=== PATIENT | female | born 1990 | race Caucasian/White ===

== ENCOUNTER 2024-02-07 23:17 | Emergency (ER) | payer OTHER, SELFPAY ==
[2024-02-07 23:22] VITALS: BP 148/100; PULSE 105; RESP 18; TEMP 37.1; O2SAT 97; BMI 31.5
[2024-02-08 00:12] VITALS: BP 132/79; PULSE 77; RESP 18; O2SAT 97
--- NOTE | 2024-02-08 02:12 | ED.GENADULT ---
HPI - General Adult General Date Seen: 02/08/24 Chief complaint: Post Op Complication Stated complaint: 4 days post op, dizzy, chills Time Seen by Provider: 02/07/24 23:51 Source: patient Mode of arrival: ambulatory Limitations: no limitations History of Present Illness HPI narrative: Pt c/o chills, dizziness, and 1/10 soreness to right upper quadrant that radiates to right back. Pt states she had her gallbladder out on Saturday at [facility]. Pt advised by triage nurse to come to ER. Pt states, I get such bad anxiety coming here. Patient is a very nice lady who presents here after she spoke to her on-call service ryan, they recommended she came in, she said she is taking her temperature probably for 5 times a home, did this axillary, and noted that her temperature was 95? -96?. The nurse was worried that she may be becoming septic, she does not have a cough denies a sore throat, eating and drinking otherwise normal. She did undergo a routine laparoscopic cholecystectomy 5 days ago at [facility], has been having normal bowel movements since her abdominal pain is decreasing her last use of any narcotic medication was 3 days ago, and she has not really used any Tylenol or ibuprofen. She does tell me that she has pretty bad anxiety. Related Data Home Medications Medication Instructions Recorded Confirmed escitalopram oxalate 20 mg tablet 20 mg PO DAILY 02/07/24 02/07/24 (Lexapro) rizatriptan 10 mg tablet mg PO 02/07/24 Allergies Allergy/AdvReac Type Severity Reaction Status Date / Time Sulfa (Sulfonamide Allergy Mild Hives Verified 02/07/24 23:27 Antibiotics) Review of Systems Status of ROS: Reports: 10 or more systems reviewed and unremarkable except as noted in History and below [facility] Social History Smoking Status: Unknown if ever smoked Exam Narrative: Exam Narrative: On examination she is in no apparent distress she is pleasant and alert, speaking to me normally. Pupils equal round reactive to light her TMs are normal oropharynx is normal well hydrated neck is supple no meningismus chest is good air entry bilaterally with no wheezing crackles noted heart sounds are normal. Abdomen shows some us portals of entry from her laparoscopic cholecystectomy other all healing up well. There is no redness, some normal bruising, she has good bowel sounds and no significant tenderness of her abdomen, she moves all extremities independently well with absence of edema swelling, skin reveals no redness. Const: Vital Signs, click to edit/add: Vital Signs - 24 hr 02/07/24 23:22 02/08/24 00:12 Temperature 98.7 F Pulse Rate [Pulse Oximeter] 105 H 77 Respiratory Rate 18 18 Blood Pressure [Ri ght Upper Arm] 148/100 H 132/79 Pulse Oximetry 97 97 Oxygen Delivery Me thod Room Air Room Air Documenting provider has reviewed patient's vital signs: yes Course Course ED Course: I had a long discussion with her, her vital signs are normal at examination shows no evidence of any significant findings.. I think it would be reasonable to just watch this. And reassure her, she felt so much better after this. I did offer her a urinalysis or a CBC, but she felt that she could go home I would be in agreement. Vital Signs Vital signs: Initial Vital Signs Temperature 98.7 F 02/07/24 23:22 Temperature Source Temporal Artery Scan 02/07/24 23:22 Pulse Rate 105 H 02/07/24 23:22 Respiratory Rate 18 02/07/24 23:22 Blood Pressure 148/100 H 02/07/24 23:22 Blood Pressure Mean 116 H 02/07/24 23:22 Blood Pressure Position Sitting 02/07/24 23:22 Pulse Oximetry 97 02/07/24 23:22 Oxygen Delivery Method Room Air 02/07/24 23:22 Vital Signs Temperature 98.7 F 02/07/24 23:22 Pulse Rate 105 H 02/07/24 23:22 Respiratory Rate 18 02/07/24 23:22 Blood Pressure 148/100 H 02/07/24 23:22 Pulse Oximetry 97 02/07/24 23:22 Oxygen Delivery Method Room Air 02/07/24 23:22 Temperature 98.7 F 02/07/24 23:22 Pulse Rate 77 02/08/24 00:12 Respiratory Rate 18 02/08/24 00:12 Blood Pressure 132/79 02/08/24 00:12 Pulse Oximetry 97 02/08/24 00:12 Oxygen Delivery Method Room Air 02/08/24 00:12 Medical Decision Making MDM Narrative Medical decision making narrative: Life-threatening differential diagnosis is include meningitis, encephalitis, pneumonia, intra-abdominal infection, bacteremia, other differential diagnosis include but are not limited to viral upper respiratory tract infection, strep, urinary tract infection, skin infection, osteomyelitis, influenza, fungal infections, diskitis, epidural abscess, or fever of unknown origin. Discharge Plan Discharge Clinical Impression: Post-operative complication, Anxiety about health Patient Disposition: Home, Self-Care Condition: Stable Additional Instructions: Home rest reassurance given, at this point I would watch this, I do not think you have sepsis, based on her vital signs and examination. I do not think you have a blood clot, given also when I see. I think you doing well postoperatively, I would watch for signs of increasing abdominal pain shortness of breath coughing, and then return if these occur obviously if her temperature gets over 100, then I would come back. Low temperature can be characteristic of sepsis, but you have to have an abnormality of vital signs in ayoung healthy person. Prescriptions: No Action escitalopram oxalate [Lexapro] 20 mg tablet 20 mg PO DAILY rizatriptan 10 mg tablet PO Stand Alone Forms: [employer] Info Instructions
== END 2024-02-08 00:28 | disposition home or self-care (01) ==
LOC: ED 02-08 00:21
PROVIDERS: Emergency Provider Family Medicine
DX: F41.9 Anxiety disorder, unspecified (principal); T81.9XXA Unspecified complication of procedure, initial encounter
CPT/HCPCS: 99282; 99283; 99284

== ENCOUNTER 2024-07-16 19:53 | Emergency (ER) | payer OTHER, SELFPAY ==
[2024-07-16 20:47] VITALS: BP 152/74; PULSE 85; RESP 20; TEMP 36.6; O2SAT 99; BMI 31.5
--- NOTE | 2024-07-16 22:18 | ED.SKABFB ---
HPI - Skin/Abscess/Foreign Bdy General Date Seen: 07/16/24 Chief complaint: Skin/Abscess/Foreign Body Stated complaint: Cellulitis upper R thigh Time Seen by Provider: 07/16/24 22:13 Source: patient Mode of arrival: ambulatory Limitations: no limitations History of Present Illness HPI narrative: Patient is a 33-year-old female presenting to emergency department for cellulitis to her right upper inner side. She states she 1st noticed a cellulitis on Saturday. She went to urgent care the next day it was started Keflex 500 mg twice a day. She noticed was not getting any better and went to another Urgent Care 2 days after that and was switched to Keflex 4 times a day 500 mg. She has noticed some improvement in the redness is much better today compared to yesterday along with little bit of decrease in the overall size of the redness but notes the center area is more painful and appears a darker red than before. Denies fevers, chills, weakness, lightheadedness, dizziness, chest pain, shortness of breath. States she is having no other symptoms other than the cellulitis. She is concerned she could be getting septic. Related Data Home Medications ?Medication ?Instructions ?Recorded ?Confirmed escitalopram oxalate 20 mg tablet 20 mg PO DAILY 02/07/24 07/16/24 (Lexapro) rizatriptan 10 mg tablet 10 mg PO DIRECTED 02/07/24 07/16/24 Previous Rx's ?Medication ?Instructions ?Recorded cephalexin 500 mg capsule 500 mg PO QID 7 days #28 caps 07/14/24 Allergies Allergy/AdvReac Type Severity Reaction Status Date / Time Sulfa (Sulfonamide Allergy Mild Hives Verified 07/16/24 20:49 Antibiotics) Review of Systems Status of ROS: Reports: 10 or more systems reviewed and unremarkable except as noted in History and below PFSH PFSH Social History Smoking Status: Unknown if ever smoked Exam Narrative: Exam Narrative: Const: Well-nourished, Well-developed, in mild distress Eyes: PERRL, no conjunctival injection, and symmetrical lids HENT: Atraumatic external nose and ears. Moist mucous membranes. To remove this MSK:Extremities w/o deformity, Normal Active ROM Skin: Red area about 15 cm x 15 cm through the central that is fluctuant Neuro: Normal Muscle tone, No focal neurological deficits. Psych: Awake, Alert, & Oriented x3. Appropriate mood and affect. Const: Vital Signs, click to edit/add: Vital Signs - 24 hr 07/16/24 20:47 Temperature 97.9 F Pulse Rate [Right Pulse Oximeter] 85 Respiratory Rate 20 Blood Pressure [Ri ght Upper Arm] 152/74 H Pulse Oximetry 99 Oxygen Delivery Me thod Room Air Course Vital Signs Vital signs: Initial Vital Signs Temperature 97.9 F 07/16/24 20:47 Temperature Source Temporal Artery Scan 07/16/24 20:47 Pulse Rate 85 07/16/24 20:47 Respiratory Rate 20 07/16/24 20:47 Blood Pressure 152/74 H 07/16/24 20:47 Blood Pressure Mean 100 07/16/24 20:47 Blood Pressure Position Sitting 07/16/24 20:47 Pulse Oximetry 99 07/16/24 20:47 Oxygen Delivery Method Room Air 07/16/24 20:47 Vital Signs Temperature 97.9 F 07/16/24 20:47 Pulse Rate 85 07/16/24 20:47 Respiratory Rate 20 07/16/24 20:47 Blood Pressure 152/74 H 07/16/24 20:47 Pulse Oximetry 99 07/16/24 20:47 Oxygen Delivery Method Room Air 07/16/24 20:47 Temperature 97.9 F 07/16/24 20:47 Pulse Rate 85 07/16/24 20:47 Respiratory Rate 20 07/16/24 20:47 Blood Pressure 152/74 H 07/16/24 20:47 Pulse Oximetry 99 07/16/24 20:47 Oxygen Delivery Method Room Air 07/16/24 20:47 MDM - Skin/Abscess/Foreign Bdy MDM Narrative Medical decision making narrative: Patient is a 33-year-old female presenting to the emergency department for concerns of cellulitis. She showed me previous images and the redness with the cellulitis is not appear to be as intense as previously. The central area of concern did have some skin over at this since loft ox and she is concerned that this is redder. This area was probably always this appearance and now with the skin sloughed off it is easier to see. States it is painful but she does not want any pain medication. Overall it does appear improved compared to previous picture she showed me. I did do an ultrasound of the central area and there is a very small abscess that is not amenable to drainage at this time. I will adjust her antibiotics. I plan to keep her on the Keflex and add Bactrim. She is agreeable to this plan Discharge Plan Discharge Clinical Impression: Cellulitis Qualifiers: Site of cellulitis: extremity Site of cellulitis of extremity: lower extremity Laterality: right Qualified Code(s): L03.115 - Cellulitis of right lower limb Patient Disposition: Home, Self-Care Condition: Stable Instructions: Cellulitis (ED) Additional Instructions: Keep taking the Keflex an at on the Bactrim that was prescribed through [facility]. You will finish the Keflex before the Bactrim. Make sure you continue take the Bactrim until you finish the prescription. Return to the emergency department if he notice continue weaning worsening every symptoms in the next 72 hours. Is also return to emergency department for any other new or concerning symptoms. Prescriptions: No Action cephalexin 500 mg capsule 500 mg PO QID 7 Days Qty: 28 0RF escitalopram oxalate [Lexapro] 20 mg tablet 20 mg PO DAILY rizatriptan 10 mg tablet 10 mg PO DIRECTED Follow Up/Referrals: Provider,Not a Local [Primary Care Provider] - Stand Alone Forms: [employer] Info Instructions
--- OUTSIDE RECORDS SUMMARY | 2024-07-16 22:31 | XMS_ITS | Encounter Summary ---
Author Organization [facility] Address [address] [place] [address] Care Team Providers Care Manager Part Name Role Phone Margot Huang PA-C Primary Care Provider [phone] Reason for Visit * Reason Comments CELLULITIS Encounter Details Date Type Department Care Team (Late st Contact Info) Description 07/15/2024 Nurse Triage Careline [address] [place], [place] [address] Leobardo Lloyd X CELLULITIS Social History Tobacco Use Types Packs/Day Years Used Date Smoking Tobacco: Former Cigarettes 0.5 10 0 01/21/2012 - 01/20/2022 Smokeless Tobacco: Former Alcohol Use Standard Drinks/Week Comments Not Currently 0 (1 standard drink = 0.6 oz pur e alcohol) barely PHQ-2 Answer Date Recorded PHQ-2 Score 2 05/22/2024 Sex and Gender Information Value Date Recorded Sex Assigned at Not on file Gender Identity Not on file Sexual Orientation Not on file documented as of this encounter Nursing Notes * Leah Archibald RN - 07/15/2024 7:57 PM CDT Verified patient identity: Yes name, and address Situation/Background (brief explanation of current symptoms/situation): Saturday her thigh hurt,did call dr and started on cephalexin Pt was seen at urgent care yesterday, had cephalexin increased Today the pain in leg is better, the skin getting more red Reviewed with patient pertinent medical history (as it related to the call): Yes reviewed Reviewed with patient pertinent medications (as they relate to call): reviewed Reviewed with patient pertinent allergies (as they relate to call): N/A Reason for Disposition Black (necrotic), dark purple, or blisters develop in area of cellulitis Protocols used: Cellulitis on Antibiotic Follow-up [id number] * Leobardo Lloyd - 07/15/2024 6:06 PM CDT Verified patient identity using three identifiers: Yes Caller's relationship to patient: Self, Do you have a provider/clinic where you are seen for this? [facility]/Dejon/Kari/[facility] Are you calling about a /TOWER HOIST OPERATOR related concern? No Symptoms Describe the reason for call/symptoms (include location and duration if applicable): Pt has cellulitis on right thigh and noticing more redness Plan:The current callback time to speak with a nurse is 1.5 hour. If your symptoms change or worsen, or if you have not received a call back in the stated timeframe, please call us back documented in this encounter Plan of Treatment Not on file documented as of this encounter Visit Diagnoses Not on filedocumented in this encounter Care Teams Manager Part Relationship Specialty Start Date End Date Margot Huang PA-C [address] [place] [address] PCP - General Physician Holistic Health Practitioner 11/13/16 documented as of this encounter
--- OUTSIDE RECORDS SUMMARY | 2024-07-16 22:31 | XMS_ITS | Referral Summary ---
Author Organization [place] Address [address] [place] [address] Care Team Providers Care Drainlayer Name Role Phone [facility] Allergies Active Allergy Reactions Criticality Noted Date Comments Sulfa Antibiotics Hives 07/28/2009 Medications Medication Sig Dispensed Refills Start Date End Date Status Vit-Fe Fumarate-FA (PNV PLUS MULTIVITAMIN) 27-1 MG TABS per tablet Take 1 tablet by mouth daily Active omeprazole (PRILOSEC) [address] capsule Take 20 mg by mouth daily Active ferrous sulfate (FEROSUL) 325 (65 Fe) MG tablet Take 325 mg by mouth daily (with breakfast) Active oxyCODONE (ROXICODONE) 5 MG tabletIndications:S/P primary low transverse Take 1-2 tablets (5-10 mg) by mouth every 4 hours as needed for pain 20 tablet 11/08/2018 Active Active Problems Problem Noted Date Diagnosed Date 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 Immunizations Name Administration Dates Next Due DTAP (<7y) 09/08/1996 HIB (PRP-T) 12/30/1992,03/02/1992,1991 ,1991 HPV 05/21/2008,12/20/2007,10/21/2007 Historical DTP/aP 12/30/1992,03/02/1992,12/29/18 92,1991 MMR 12/30/1992 OPV, trivalent, live 09/08/1996,12/30/1992,12/29,1991 TDAP Vaccine (Adacel) 07/28/2009 Varicella 08/27/1995 Social History Tobacco Use Types Packs/Day Years Used Date Smoking Tobacco: Former Cigarettes Q uit: 07/02/2016 Smokeless Tobacco: Never Alcohol Use Standard Drinks/Week Comments No 0 (1 standard drink = 0.6 oz pur e alcohol) AUDIT-C Answer Date Recorded Frequency of Alcohol Consumption Never 11/02/2018 Average Number of Drinks Not on file 019 Frequency of Binge Drinking Not on file 10/21 Adolescent Education Answer Date Record ed Getting School Help Needed Not on file 07/29 Sex and Gender Information Value Date Recorded Sex Assigned at Not on file Gender Identity Not on file Sexual Orientation Not on file Last Filed Vital Signs Vital Sign Reading Time Taken Comments Blood Pressure 156/98 08/09/2023 9:37 PM CDT Pulse 95 08/09/2023 9:37 PM CDT Temperature 36.4 ??C (97.5 ??F) 08/09/2023 8:33 PM CD T Respiratory Rate 18 08/09/2023 9:37 PM CDT Oxygen Saturation 100% 08/09/2023 9:37 PM CDT Inhaled Oxygen Concentration - - Weight 104.3 kg (230 lb) 11/02/2018 9:30 PM ANALYSIS MANAGER Height 167.6 cm (5' 6) 11/02/2018 9:30 PM ANALYSIS MANAGER Body Mass Index 37.12 11/02/2018 9:30 PM ANALYSIS MANAGER Plan of Treatment Not on file Procedures Procedure Name Priority Date/Time Associated Diagnosis Comments HIV ANTIGEN ANTIBODY COMBO Routine 04/16/2018 HEPATITIS C ANTIBODY Routine 08/18/2014 9:29 AM CDT Screen for STD (sexually transmitted disease) PAP IMAGED THIN LAYER SCREEN Routine 08/18/2014 12:00 AM CDT Routine General Medical Examination At A Health Care Facility Papanicolaou Smear Of Cervix With Low Grade Squamous Intraepithelial Lesion (Lgsil) from Last 3 Months or Most Recently Relevant to Health Maintenance Results * HIV Antigen Antibody Combo (04/16/2018) HIV Antigen Antibody Combo negative Blood specimen (specimen) Patient Reported LAB - BLOOD ORDERABL ES * Hepatitis C antibody (08/18/2014 9:29 AM CDT) Hepatitis C Antibody Negative NEG [facility]CRO[facility] Blood specimen (specimen) 08/18/2014 9:29 AM CDT 08/18/2014 9:32 AM CDT Wiliam Lagunas PA-C LAB - BLOOD ORDERABLES [facility]CRO[facility] * PAP imaged thin layer, screen (08/18/2014 12:00 AM CDT) PAP NIRMALA Zaldivar Report Patient Name: TURNER TIDWELL MR#: [id number] Specimen #: [id number] Collected: 08/18/2014 Received: 08/19/2014 Reported: 08/24/2014 12:44 Ordering Phy(s): WILIAM LAGUNAS SPECIMEN/STAIN PROCESS: Pap imaged thin layer prep screening (Surepath, FocalPoint with guided screening) ? Pap-Cyto x 1 SOURCE: Cervical, endocervical Pap imaged thin layer prep screening (Surepath, FocalPoint with guided screening) SPECIMEN ADEQUACY: Satisfactory for evaluation. -Transformation zone component present. CYTOLOGIC INTERPRETATION: Negative for Intraepithelial Lesion or Malignancy ? Organism(s): -Shift in satinder suggestive of bacterial vaginosis. Electronically signed out by: SARAH Vieyra ( ASCP) Processed and screened at [facility] CLINICAL HISTORY: LMP: 08/09/2014 Previous normal pap Date of Last Pap: 04/10/2012 Previous abnormal pap: lgsil, Papanicolaou Test Limitations: ??Cervical cytology is a screening test with limited sensitivity; regular screening is critical for cancer prevention; Pap tests are primarily effective for the diagnosis/preventi on of squamous cell carcinoma, not adenocarcinomas or other cancers. TESTING LAB LOCATION: [address] ??[id number] COLLECTION SITE: Client: ??[facility] Location: [facility] (R) COPATH Cytologic material (specimen) 08/18/2014 08/19/2014 11:48 AM CDT Wiliam Lagunas PA-C LAB - OPTIME CLINICAL SPECIMEN COPATH from Last 3 Months or Most Recently Relevant to Health Maintenance Care Teams Drainlayer Relationship Specialty Start Date End Date [facility], [address] [address] PCP - General 08/09/23
--- OUTSIDE RECORDS SUMMARY | 2024-07-16 22:31 | XMS_ITS | Clinical Summary ---
Author Organization [facility] Address [address] [address] Care Team Providers Care Dry Can Tender Name Role Phone Margot Huang PA-C Primary Care Provider [phone] Source Comments You are receiving this document as you are listed as the primary care provider,follow-up provider, or the patient has been referred to you for consultation.This is in compliance with the Medicare and[employer] Health[employer] EHR Incentive Program,which states Providers who transition their patient to another setting of careor provider of care or refers their patient to another provider of care shouldprovide summary care record for each transition of care or referral. [employer] Allergies Active Allergy Reactions Criticality Noted Date Comments Sulfa Antibiotics Hives High 10/26/2015 Medications Medication Sig Dispensed Refills Start Date End Date Status Magnesium 500 MG Active Riboflavin (B-2-400 OR) Active cholecalciferol (VITAMIN D3) 25 MCG (1000 UT) tablet Take 1 Tablet (1,000 Units) by mouth daily. Active omega-3 fatty acids (FISH OIL) 1000 MG capsule Take 2 Capsules (2,000 mg) by mouth daily. Active rizatriptan (MAXALT) 10 MG tabletIndications:In tractable migraine with aura without status migrainosus 1 tab po at onset of migraine, 1 tab po 2 hrs later if needed. Max 9 pills per month. 9 Tablet 11 05/22/2024 Active methylPREDNISolone (MEDROL 21 TABLET DOSEPACK) 4 MG tabletIndications:In tractable migraine with aura without status migrainosus Follow package directions 21 Tablet 05/22/2024 Active Active Problems Problem Noted Date Diagnosed Date Migraine with aura and witho ut status migrainosus, not intractable 12/26/2021 S/P primary low transverse 11/05/2018 Gestational hypertension 11/02/2018 History of depression 10/15/2017 Overview (10/15/2017): Hx depression, anxiety, bipolar resolved on problem list by PCP ROSE MARY (generalized anxiety disorder) 07/16/2016 Resolved Problems Problem Noted Date Diagnosed Date Resolved Date Encounter for supervision of normal first in first trimester 10/02/2017 10/23/2017 Bipolar affective disorder 07/28/2009 1 10/21/2016 Posttraumatic stress disorder 07/28/2009 08/21/2017 Bipolar affective disorder 07/28/2009 1 12/16/2016 Posttraumatic stress disorder 07/28/2009 10/15/2017 Depression 10/15/2017 Encounters Date Type Department Care Team Description 07/15/2024 Nurse Triage Careline [address] [place], [place] [address] GabinoLeobardo X CELLULITIS 05/22/2024 7:40 AM CDT Telemedicine [address] [address] Antonia Edmond, ROOF DESIGNER, FURNACE RELINER Intractable migraine with aura without status migrainosus (Primary Dx) from Last 3 Months Immunizations Name Administration Dates Next Due 4vHPV (Gardasil) 05/21/2008,12/20/2007, 8,02/17/2007 DTP 12/30/1992,03/02/1992,1991 ,1991 DTaP 09/08/1996 HepB Ped/Adol (0-18 yrs) 12/22/2002 Hib, Unspecified Formulation 12/30/1992,03/02/19 92,1991,1991 IPV (Polio) 09/08/1996 OPV, Trivalent (Orimune or tOPV) 09/08/1996,12/19,1991,1991 Tdap 10/02/2018,07/28/2009 Family History Medical History Relation Name Comments Anxiety Mother Stroke Maternal Grandfather Grandpa Diabetes, Type II Maternal Grandmother Bleeding Disorder Negative Family History Cancer, Breast Negative Family History Cancer, Colon Negative Family History Cancer, Ovary Negative Family History Coronary Artery Disease Negative Family History Genetic Disorder Negative Family History Hyperlipidemia Negative Family History Hypertension Negative Family History Thromboembolic Disease Negative Family History Thyroid Disorder Negative Family History Relation Name Status Comments Father Alive Mother Alive Brother Alive Maternal Grandfather Grandpa Alive Maternal Grandmother Alive Paternal Grandfather Alive Paternal Grandmother Alive Social History Tobacco Use Types Packs/Day Years Used Date Smoking Tobacco: Former Cigarettes 0.5 10 0 01/21/2012 - 01/20/2022 Smokeless Tobacco: Former Tobacco Cessation:Counseling Given: Not Answered Alcohol Use Standard Drinks/Week Comments Not Currently 0 (1 standard drink = 0.6 oz pur e alcohol) barely PHQ-2 Answer Date Recorded PHQ-2 Score 2 05/22/2024 Sex and Gender Information Value Date Recorded Sex Assigned at Not on file Gender Identity Not on file Sexual Orientation Not on file Last Filed Vital Signs Vital Sign Reading Time Taken Comments Blood Pressure 111/81 01/13/2024 9:18 AM CDT Pulse 96 01/13/2024 9:18 AM CDT Temperature 36.8 ??C (98.3 ??F) 01/09/2024 9:20 AM CD T Respiratory Rate 16 01/09/2024 9:20 AM CDT Oxygen Saturation 100% 01/09/2024 9:20 AM CDT Inhaled Oxygen Concentration - - Weight 63.5 kg (140 lb) 08/23/2022 8:08 AM CDT p t reported Height 167.6 cm (5' 6) 08/23/2022 8:08 AM CDT p t reported Body Mass Index 22.6 08/23/2022 8:08 AM CDT Plan of Treatment Health Maintenance Due Date Last Done Comments Hep C Screening (Preventive Services) 1991 HepB (2) 01/19/2003 12/22/2002 Adult Preventive Visit 08/21/2019 08/21/2017, 2015 Cervical Cancer Screening 08/21/20202016, 08/18/2014 (Completed) COVID-19 Vaccine ( season) 2024 Influenza (#1) 2024 DTaP/Tdap/Td (8 - Tdap) 10/02/2028 10/02/20 18, 07/28/2009, 09/08/1996, Additional history exists Zoster/Shingles (1 of 2) 2041 Hib Completed 12/30/1992, 02/18, 1991, Additional history exists IPV (Polio) Completed 09/08/1996, 08/21, 12/30/1992, Additional history exists HIV Screening (Preventive Services) Completed 10/02/2017, 08/21/2017 HepA Aged Out No longer eligi ble based on patient's age to complete this topic MCV4 Aged Out No longer eligi ble based on patient's age to complete this topic Pneumococcal Aged Out No longer eligi ble based on patient's age to complete this topic Procedures Procedure Name Priority Date/Time Associated Diagnosis Comments HIV 1/2 AG/AB 4TH GEN Routine 10/02/2017 1:40 PM SCHOOL LUNCH MONITOR Encounter for supervision of normal first in first trimester PAP TEST, ROUTINE Routine 08/21/2017 11: 14 AM CDT Screening for malignant neoplasm of cervix from Last 3 Months or Most Recently Relevant to Health Maintenance Results * HIV 1/2 Ag/Ab 4th Generation (10/02/2017 1:40 PM SCHOOL LUNCH MONITOR) HIV 1/2 AG/AB 4thGEN Negative (Non Reactive) NEGNR [facility] Comment:HIV-1 p24 Ag and HIV -1/HIV-2 Ab not detected. 10/02/2017 1:40 PM SCHOOL LUNCH MONITOR 10/02/2017 1:47 PM SCHOOL LUNCH MONITOR Narrative [facility] - 10/02/2017 7:15 PM SCHOOL LUNCH MONITOR Performed at [facility], [address] [place] [address] ??[id number] Meg Gracia APRN, CNM LAB_1 [facility] [phone] * Pap Test, Routine (08/21/2017 11:14 AM CDT) Cytology, Pap (NOTE) Digital Content Marketing Manager Cytology Report Patient Name: TURNER TIDWELL Taken: 08/21/2017 Received: 08/21/2017 Reported: 09/02/2017 Physician(s): GENARO JAMIL ?Source of Specimen Pap Test, Routine Cervical/Endocervi cristina: ?Specimen Adequacy ?Satisfactory for evaluation. ??Endocervical component present. ? Final Cytologic Interpretation/Res ult NEGATIVE FOR INTRAEPITHELIAL LESION OR MALIGNANCY (NILM) ?? *Electronically Signed Out By Savanah Thompson CT(ASCP)* Esther Ahumada CT (ASCP) Savanah Thompson CT(ASCP) ? Pap Smear History Date of Last Menstrual Period: No LMP recorded ?? Microscopic Description Microscopic examination is performed. [facility] Department of Pathology [address] [place] [phone] [facility] 08/21/2017 11:1 4 AM CDT 08/21/2017 6:30 PM CDT Genaro Jamil MD LAB_1 [facility] [phone] from Last 3 Months or Most Recently Relevant to Health Maintenance Advance Directives * Full Code (Latest Code Status on File) Date Activated Date Inactivated Comments 11/27/2017 8:06 AM 11/27/2017 2:06 PM Care Teams Dry Can Tender Relationship Specialty Start Date End Date Magrot Huang PA-C [address] [place] [address] PCP - General Physician Industrial Aerial Installer 11/13/16
--- OUTSIDE RECORDS SUMMARY | 2024-07-16 22:31 | XMS_ITS | Encounter Summary ---
Author Organization [facility] Address [address] [address] Care Team Providers Care Technical Fellow Name Role Phone Margot Huang PA-C Primary Care Provider [phone] Encounter Details Date Type Department Care Team (Late st Contact Info) Description 10/15/2017 Correspondence External to External, [place] [address] NOTICE OF NON COVERED SERVICE Social History Tobacco Use Types Packs/Day Years Used Date Smoking Tobacco: Former Smokeless Tobacco: Former Comments:quit with Alcohol Use Standard Drinks/Week Comments No 0 (1 standard drink = 0.6 oz pur e alcohol) Comments Yes Sex and Gender Information Value Date Recorded Sex Assigned at Not on file Gender Identity Not on file Sexual Orientation Not on file documented as of this encounter Plan of Treatment Not on file documented as of this encounter Visit Diagnoses Not on filedocumented in this encounter Additional Health Concerns Infection Onset Date Last Indicated Resolved Time R/O COVID19 05/20/2020 05/20/2020 05/27/2020 3:18 AM CDT documented as of this encounter Care Teams Technical Fellow Relationship Specialty Start Date End Date Margot Huang PA-C [address] [place] [address] PCP - General Physician Home Health Aide 11/13/16 documented as of this encounter
--- OUTSIDE RECORDS SUMMARY | 2024-07-16 22:31 | XMS_ITS | Encounter Summary ---
Author Organization [facility] Address [address] [place] [address] Care Team Providers Care Licensed Professional Counselor Name Role Phone Eileen Vaughn PA-C Primary Care Provid er [facility] Primary Care Pro vider Encounter Details Date Type Department Care Team (Late st Contact Info) Description 07/31/2013 [facility] [address] [place] [phone] [facility] Social History Tobacco Use Types Packs/Day Years Used Date Smoking Tobacco: Every Day Cigarettes 0.5 1 Smokeless Tobacco: Never Alcohol Use Standard Drinks/Week Comments No 0 (1 standard drink = 0.6 oz pur e alcohol) Sex and Gender Information Value Date Recorded Sex Assigned at Not on file Gender Identity Not on file Sexual Orientation Not on file documented as of this encounter Plan of Treatment Not on file documented as of this encounter Visit Diagnoses Not on filedocumented in this encounter Care Teams Licensed Professional Counselor Relationship Specialty Start Date End Date Eileen Vaughn PA-C [address] [address] [place] [address] PCP - General Family Practice 12/07/10 08/08/23 [facility] [address] [place], [place] [id number] PCP - General 08/09/23 documented as of this encounter
--- OUTSIDE RECORDS SUMMARY | 2024-07-16 22:31 | XMS_ITS | Encounter Summary ---
Author Organization [facility] [employer] Address [address], [place] [address] Care Team Providers Care Deputy Director Of Nursing Name Role Phone Margot Huang PA-C Primary Care Provider [phone] Encounter Details Date Type Department Care Team (Late st Contact Info) Description 11/27/2017 Consent for Procedure/Treatme nt [facility] INFORMED CONSENT RECORD Social History Tobacco Use Types Packs/Day Years [...] documented as of this encounter Care Teams Deputy Director Of Nursing Relationship Specialty Start Date End Date Margot Huang PA-C [address] [place] [address] PCP - General Physician Director Of Logistics 11/13/16 documented as of this encounter
--- OUTSIDE RECORDS SUMMARY | 2024-07-16 22:31 | XMS_ITS | Encounter Summary ---
Author Organization [employer] Address [address] [address] Care Team Providers Care Automobile Rental Representative Name Role Phone Margot Huang PA-C Primary Care Provider [phone] Reason for Visit * Reason Comments Video Visit HEADACHE,MIGRAINE Encounter Details Date Type Department Care Team (Late st Contact Info) Description 05/22/2024 7:40 AM CDT Telemedicine [address] [id number] Antonia Edmond, BRANT, BOOM CRANE OPERATOR [address] [place] [phone] Intractable migraine with aura without status migrainosus (Primary Dx) Social History Tobacco Use Types Packs/Day Years [...] on file documented as of this encounter Progress Notes * Antonia Edmond, BRANT, DEEDEE - 05/22/2024 7:40 AM CDT Subjective: Kacey is a 33 y.o. female with migraine for three weeks. She has long history of migraines normally occurring about a week prior to menses. Over time has found rizatriptan to be most helpful of anything. Has no insurance coverage and has run out of refills. Migraine started three weeks ago and hasn't been able to get rid of it. Needed steroids once in past to break headache pattern. Objective: Gen: A/O NAD Resp: Speaks calmly and clearly in full sentences. MS: Independent movement and position change Skin: Normal Neuro: Coordinated and symmetric movement with no focal deficits. Speech clear, no confusion. Psych: Pleasant, interactive. Non-distressed Assessment/ Plan: Intractable migraine with aura without status migrainosus - rizatriptan (MAXALT) 10 MG tablet; 1 tab po at onset of migraine, 1 tab po 2 hrs later if needed.Max 9 pills per month. - methylPREDNISolone (MEDROL 21 TABLET DOSEPACK) 4 MG tablet; Follow package directions Will try rizatriptan first and if not helping steroid dosepak. Reminded due for physical with pap test. Discussed evisit as more affordable option for patients without insurance coverage. documented in this encounter Plan of Treatment Not on file documented as of this encounter Visit Diagnoses Diagnosis Intractable migraine with aura without status migrainosus- Primary Migraine with aura, with intractable migraine, so stated, without mention of status migrainosus documented in this encounter Care Teams Automobile Rental Representative Relationship Specialty Start Date End Date Margot Huang, [facility] [address] [place] [address] PCP - General Physician Doughnut Machine Operator 11/13/16 documented as of this encounter
--- OUTSIDE RECORDS SUMMARY | 2024-07-16 22:31 | XMS_ITS | Clinical Summary ---
Author Organization [facility] Address [address] [place] [address] Care Team Providers Care Scrum Master Name Role Phone [facility], [facility] Primary Care Pro vider Allergies Active Allergy [...] 09/08/1996,12/30/1992,12/29,1991 TDAP Vaccine (Adacel) 07/28/2009 Varicella 08/27/1995 Family History Medical History Relation Comments Cancer Maternal Grandfather bladder can cer Relation Status Comments Brother Alive Father Alive Maternal Grandfather Alive Maternal Grandmother Alive Mother Alive Paternal Grandfather Alive Paternal Grandmother Alive [...] 104.3 kg (230 lb) 11/02/2018 9:30 PM BUDGET AND POLICY ANALYST Height 167.6 cm (5' 6) 11/02/2018 9:30 PM BUDGET AND POLICY ANALYST Body Mass Index 37.12 11/02/2018 9:30 PM BUDGET AND POLICY ANALYST Plan of Treatment Health Maintenance Due Date Last Done Comments ANNUAL REVIEW OF HM ORDERS 1991 HEPATITIS B IMMUNIZATION (2 of 3 - 3-dose series) 01/19/2003 12/22/2002 YEARLY PREVENTIVE VISIT 08/18/2015 08/18/20 14, 04/10/2012, 08/21/2010, Additional history exists PAP 08/18/2017 08/18/2014, 03/22, 08/21/2010, Additional history exists ADVANCE CARE PLANNING 11/03/2023 11/03/2018 COVID-19 Vaccine ( season) 2024 INFLUENZA VACCINE (#1) 2024 DTAP/TDAP/TD IMMUNIZATION (8 - Td or Tdap) 10/02/2028 10/02/2018, 07/28/2009, 09/08/1996, Additional history exists RSV VACCINE (1 - 1-dose 75+ series) 2066 HPV IMMUNIZATION Completed 05/21/2008, 10/2007, 12/20/2007, Additional history exists HEPATITIS C SCREENING Completed 08/18/2014 , 04/10/2012, 07/28/2009 HIV SCREENING Completed 04/16/2018, 07/22, 04/10/2012, Additional history exists MENINGITIS IMMUNIZATION Aged Out No l onger eligible based on patient's age to complete this topic Pneumococcal Vaccine: Pediatrics (0 to 5 Years) and At-Risk Patients (6 to 64 Years) Aged Out No longer eligible based on patient's age to complete this topic RSV MONOCLONAL ANTIBODY Aged Out No l onger eligible based on patient's age to complete this [...] AM CDT) Hepatitis C Antibody Negative NEG [facility] Blood specimen (specimen) 08/18/2014 9:29 AM CDT 08/18/2014 9:32 AM CDT Wiliam Lagunas PA-C LAB - BLOOD ORDERABLES [facility] * PAP imaged thin layer, screen (08/18/2014 12:00 AM CDT) PAP NIRMALA Zaldivar Report Patient Name: TURNER TIDWELL MR#: [id number] Specimen #: [id number] Collected: 08/18/2014 Received: 08/19/2014 Reported: 08/24/2014 12:44 [...] Vieyra ( ASCP) Processed and screened at [facility] CLINICAL HISTORY: LMP: 08/09/2014 Previous normal pap Date of Last Pap: 04/10/2012 Previous abnormal pap: lgsil, Papanicolaou Test Limitations: ??Cervical cytology is a screening test with limited sensitivity; regular screening is critical for cancer prevention; Pap tests are primarily effective for the diagnosis/preventi on of squamous cell carcinoma, not adenocarcinomas or other cancers. TESTING LAB LOCATION: [facility] [address] [place], [place] ??[phone] COLLECTION SITE: Client: ??[facility] Location: [facility] (R) COPATH Cytologic material (specimen) 08/18/2014 08/19/2014 11:48 AM CDT Wiliam Lagunas PA-C LAB - OPTIME CLINICAL SPECIMEN COPATH from Last 3 Months or Most Recently Relevant to Health Maintenance Care Teams Scrum Master Relationship Specialty Start Date End Date Clinic, [facility] [id number] [place] [address] PCP - General 08/09/23
--- OUTSIDE RECORDS SUMMARY | 2024-07-16 22:32 | XMS_ITS | Clinical Summary ---
Author Organization [employer] [facility] Address [place], [place] [address] Care Team Providers Care Construction Management Assistant Name Role Phone Gladys Abebe Primary Care Provider + Allergies Active Allergy Reactions Criticality Noted Date Comments Sulfa (Sulfonamide Antibiotics) Hives High 05/2009 Medications Medication Sig Dispensed Refills Start Date End Date Status amitriptyline (ELAVIL) 10 mg tablet Take 10 mg by mouth at bedtime. Active cholecalciferol (Vitamin D) 1,000 unit capsule Take 1,000 units by mouth once daily. Active escitalopram oxalate (Lexapro) 20 mg tablet Take 20 mg by mouth once daily. Active LORazepam (ATIVAN) 1 mg tablet Take 1-2 mg by mouth every 6 hours if needed for Anxiety. Active Magnesium Oxide 500 mg cap Take by mouth. Active meclizine (ANTIVERT) 25 mg tablet Take 25 mg by mouth 3 times daily if needed. Active Xyvev-7-IHI-EPA-Fish Oil (Fish OiL) 1,000 mg (120 mg-180 mg) cap Take 2 Capsules by mouth once daily. Active RIBOFLAVIN, VITAMIN B2, ORAL Take by mouth. Active rizatriptan (Maxalt) 10 mg tablet Take 10 mg by mouth 2 times daily if needed for Migraine. Give at minimum 2hrs apart. Max Dose: 30mg per 24hrs. Active oxyCODONE (ROXICODONE) 5 mg immediate release tabletIndications:Ga llstones Take 1-2 Tablets (5-10 mg) by mouth every 4 hours if needed for Pain. 10 Tablet 02/03/2024 Active Active Problems Problem Noted Date Diagnosed Date Gallstones 02/03/2024 Immunizations Name Administration Dates Next Due DTP 12/30/1992,03/02/1992,1991 ,1991 DTaP 09/08/1996 HIB PRP-T (ActHIB,Hiberix) 12/30/1992,03/02/1992 ,1991,1991 HPV 9 (Gardasil 9) 05/21/2008,12/20/2007, 008 Hepatitis B (Peds) 12/22/2002 Hib Conjugate, Unspecified 12/30/1992,03/02/1992 ,1991,1991 Human Papilloma Virus Vaccine 05/21/2008, 008,10/21/2007,02/17/2007 Inactivated Polio Vaccine 09/08/1996 MMR 12/30/1992 Oral Polio Vaccine 09/08/1996,12/30/1992, 992,1991 Tdap 07/28/2009 Varicella Vaccine 08/27/1995 Social History Tobacco Use Types Packs/Day Years Used Date Smoking Tobacco: Former Smokeless Tobacco: Never Tobacco Cessation:Counseling Given: Not Answered Alcohol Use Standard Drinks/Week Comments Not Currently 0 (1 standard drink = 0.6 oz pur e alcohol) Sex and Gender Information Value Date Recorded Sex Assigned at Not on file Gender Identity Not on file Sexual Orientation Not on file Obstetrics History Last Filed Vital Signs Vital Sign Reading Time Taken Comments Blood Pressure 119/68 02/18/2024 3:36 PM CDT Pulse 86 02/18/2024 3:36 PM CDT Temperature 36.7 ??C (98.1 ??F) 02/18/2024 3:36 PM CD T Respiratory Rate 14 02/18/2024 3:36 PM CDT Oxygen Saturation 97% 02/18/2024 3:36 PM CDT Inhaled Oxygen Concentration - - Weight 83.9 kg (185 lb) 02/18/2024 3:36 PM CDT Height 167.6 cm (5' 6) 02/18/2024 3:36 PM CDT Body Mass Index 29.86 02/18/2024 3:36 PM CDT Plan of Treatment Health Maintenance Due Date Last Done Comments Depression screening for age 12+ 2003 HIV for age 15-65 2006 Hepatitis C screening for ag e 18-79 2009 Pap test for age 21-65 2012 Tetanus booster 07/28/2019 07/28/2009 COVID-19 vaccine series ( season) 2024 Influenza for age 9-49 06/21/2024 BMI (ht and wt on same day) for age 18+ 02/17/2025 02/18/2024 Tdap Completed 07/28/2009 Pneumococcal series for age 6-64 Aged Out No longer eligible based on patient's age to complete this topic Advance Directives * Full Code (Latest Code Status on File) Date Activated Date Inactivated Comments 02/03/2024 10:13 AM 02/03/2024 5:32 PM Question Answer Comments Code Status Discussion: Discussed Care Teams Construction Management Assistant Relationship Specialty Start Date End Date Gladys Abebe [address] [place] [address] PCP - General 01/14/24
[2024-07-16 23:08] VITALS: BP 132/70; PULSE 81; RESP 20; TEMP 36.6; O2SAT 99
== END 2024-07-16 23:09 | disposition home or self-care (01) ==
LOC: ED 22:30
PROVIDERS: Emergency Provider Student in an Organized Health Care Education/Training Program
DX: L03.115 Cellulitis of right lower limb (principal)
CPT/HCPCS: 99282; 99283; 99284

== ENCOUNTER 2024-07-28 21:20 | Emergency (ER) | payer OTHER, SELFPAY ==
[2024-07-28 21:23] VITALS: BP 160/91; PULSE 126; RESP 18; TEMP 36.8; O2SAT 100; BMI 30.7
--- NOTE | 2024-07-28 22:03 | ED_ITS ---
HPI - General Adult General Chief complaint: Unspecified Complaint, Adult Stated complaint: leg weakness Time Seen by Provider: 07/28/24 21:52 History of Present Illness HPI narrative: legs are weak. Tingle to right leg, started 1 week ago. Cellulitis to left leg. No reported pain. Pt is ambulatory. 33-year-old woman presenting to the emergency department with concern bilateral leg symptoms. It sounds like of primary concern is MS and she has thought about this for a long time. For years has had tingling this that comes and goes in the left foot. Seen recently for possibly hidradenitis suppurativa- related cellulitis and small abscess in the right thigh. This has improved with antibiotics. She is now on Bactrim and does have intermittent rashes apparently with this or feels hot in her face historically with sulfa. Over the last week has had intermittent tingling S and sensations of numbness or feeling like her right 5th toes curling under though not actually so that she initially describes in like a stocking distribution on the right lower leg. Does seem to occur above the knee as well these symptoms and a general sense of intermittent weakness or wobbliness in this leg. Comes or absent earlier in the day and seems to worsen over the course of the day. Does have a history of migraines. Apparently had an MRI MRA about 4 years ago that was clear. No headache now, no visual changes no fever. Related Data Home Medications ?Medication ?Instructions ?Recorded ?Confirmed escitalopram oxalate 20 mg tablet 20 mg PO DAILY 02/07/24 07/20/24 (Lexapro) rizatriptan 10 mg tablet 10 mg PO DIRECTED 02/07/24 07/20/24 Allergies Allergy/AdvReac Type Severity Reaction Status Date / Time Sulfa (Sulfonamide Allergy Mild Hives Verified 07/20/24 15:39 Antibiotics) Review of Systems Status of ROS: Reports: 6 or more systems reviewed and unremarkable except as noted in History and below PFSH PFS Social History Smoking Status: Never smoker Do you use any of these nicotine containing products: Vaping Products Second hand tobacco smoke exposure: No How often do you have a drink containing alcohol: never AUDIT-C Alcohol total score: 0 Non-prescribed substance use: denies use Exam Narrative: Exam Narrative: Very pleasant. Mildly anxious. Becomes tearful at 1 point. Breathing easily. Moving all extremities fluidly. She appears to have. Good strength and 2+ DTRs throughout the lower extremities. 1+ knee equal dorsalis pedis pulses. No edema in appears well perfused. There is a palm sized area of erythema with mild cellulitic change in the left inner thigh it is essentially staying with been drawn margin. Minimal erythema in the right inner thigh. No muscular atrophy noted. Const: Vital Signs, click to edit/add: Vital Signs - 24 hr 07/28/24 21:23 Temperature 98.3 F Pulse Rate [Left P ulse Oximeter] 126 H Respiratory Rate 18 Blood Pressure [Ri ght Upper Arm] 160/91 H Pulse Oximetry 100 Oxygen Delivery Me thod Room Air Documenting provider has reviewed patient's vital signs: yes Course Vital Signs Vital signs: Initial Vital Signs Temperature 98.3 F 07/28/24 21:23 Temperature Source Temporal Artery Scan 07/28/24 21:23 Pulse Rate 126 H 07/28/24 21:23 Pulse Rhythm Regular 07/28/24 21:23 Respiratory Rate 18 07/28/24 21:23 Blood Pressure 160/91 H 07/28/24 21:23 Blood Pressure Mean 114 H 07/28/24 21:23 Blood Pressure Position Sitting 07/28/24 21:23 Pulse Oximetry 100 07/28/24 21:23 Oxygen Delivery Method Room Air 07/28/24 21:23 Vital Signs Temperature 98.3 F 07/28/24 21:23 Pulse Rate 126 H 07/28/24 21:23 Respiratory Rate 18 07/28/24 21:23 Blood Pressure 160/91 H 07/28/24 21:23 Pulse Oximetry 100 07/28/24 21:23 Oxygen Delivery Method Room Air 07/28/24 21:23 Temperature 98.3 F 07/28/24 21:23 Pulse Rate 126 H 07/28/24 21:23 Respiratory Rate 18 07/28/24 21:23 Blood Pressure 160/91 H 07/28/24 21:23 Pulse Oximetry 100 07/28/24 21:23 Oxygen Delivery Method Room Air 07/28/24 21:23 Medical Decision Making MDM Narrative Medical decision making narrative: I suppose it is possible that her symptoms are describing some MS phenomenon though seems atypical. No other neuromuscular disorders for readily come to mind with the symptoms. No family history of this apparently. I do not know how some of this might relate to her recent infections. Doubtful spinal cord lesion given the resolution and recurrence and resolution. In some ways reassuring is the MRI of her brain. I did offer to discuss her symptoms with Neurology. Recommending outpatient follow-up with consideration of MRI imaging and/or EMG testing. Unable to do MRIs at this time of night. Appears generally well otherwise. Offered reassurance particularly for tonight as per some of her fears. See patient discharge plan for further discussion Medical Records Medical records reviewed: Yes I reviewed the patient's medical records Discharge Plan Discharge Clinical Impression: Paresthesia, Cellulitis Patient Disposition: Home, Self-Care Condition: Stable Additional Instructions: Tonight I did speak with on-call Syl Neurology who would encourage you to follow-up outpatient. Suggestions were to simultaneously request referral for [facility] and [facility]. Can take some time to get in with either. I would otherwise follow-up with primary care as planned. Probably message them before hand. Might want to get some imaging as discussed ahead of that primary or neurology appointment, especially if symptoms are persisting or certainly if they have intensified. Prescriptions: No Action escitalopram oxalate [Lexapro] 20 mg tablet 20 mg PO DAILY rizatriptan 10 mg tablet 10 mg PO DIRECTED Follow Up/Referrals: Provider,Not a Local [Primary Care Provider] - Stand Alone Forms: [facility] Com Info Instructions
--- OUTSIDE RECORDS SUMMARY | 2024-07-28 22:20 | XMS_ITS | Encounter Summary ---
Author Organization Count includes the [facility] Address [address] [place] [address] Care Team Providers Care Occupational Physician Name Role Phone Margot Huang PA-C Primary Care Provider [phone] Reason for Visit * Reason Comments CELLULITIS Encounter Details Date Type Department Care Team (Late st Contact Info) Description 07/23/2024 7:30 AM CDT Telemedicine [facility] [address] [place] [address] Steve Stoll PA-C [address] [place] [address] Right foot pain (Primary Dx); Cellulitis of right lower extremity Social History Tobacco Use Types Packs/Day Years [...] on file documented as of this encounter Patient Instructions * Patient Instructions* Steve Stoll PA-C - 07/23/2024 7:30 AM CDT Thank you for visiting with me today. I appreciate the opportunity to care for you. I have includeda few take home items/reminders from today's visit: Important points from today: We did discuss the rare chance this is something more serious, such as osteomyelitis, which is the primary reason for obtaining X-rays. Obviously, this will also show any gross bony abnormalities. I do think this could be a manifestation of dehydration, electrolyte imbalance, and will likely correct over the next few days, but I will let you know of the results of the imaging! Below are the hours I am regularly in clinic. Saturday: 8:00 AM - 5:00 PM Saturday: 7:00 AM - 4:30 PM Saturday: : 7:00 AM - 4:30 PM Saturday: 7:00 AM - 5:00 PM Additionally, you may receive a survey from [facility] through [employer], phone or mail about your visit with me today. I would request you fill this out, and leave comments if you feel compelled. There is no specific incentive I get for these being filled out, but I do review these to help provide the best care possible to you and my other patients. It also helps our organization identify certain things we are either doing well or need improvement on. Thank you for taking the time to do this. I strive to provide a 10 experience for all my patients. Please reach out to me via clinic line or Simparelt if there is ever anything you need. Nehemiah Stoll PA-C [facility] documented in this encounter Progress Notes * Steve Stoll PA-C - 07/23/2024 7:30 AM CDT Images from the original note were not included. [facility] Nehemiah Stoll PA-C Kacey Hines 33 y.o. Female : 1990 Date of Service: 07/23/2024 SUBJECTIVE Chief Complaint/History of Present Illness: Chief Complaint Patient presents with CELLULITIS Kacey Hines is a 33 y.o. female conducting a video visit through the family medicine service today for evaluation of ongoing cellulitis concerns. I have not met the patient prior to today's visit. They are under the regular care of Margot Huang PA-C. She states she was recently treated at [facility] urgent care for cellulitis of her right lower extremity. She was placed on Keflex for 10 days. Reports improvement of symptoms, but since that time, has noticed ongoing right foot pain, sensation that her toes are curling. Was seen again following urgent care visit, and was told she was dehydrated. She has been working on increased hydration at home. Denies symptoms in left lower extremity,upper extremities. No fever, chills, chest pain, shortness of breath. Denies visible skin changes in affected area. Feels she is limping due to discomfort, and clarifies there was no RIMMA/trauma. OBJECTIVE General: Well-developed, well-nourished 33 y.o. female who appears stated age. MSK: Gross ROM intact in extremities. Psych: The patient is well-groomed and cheerful. Appropriate eye contact. Active during exam. ASSESSMENT and PLAN Right foot pain Low concern for deep infection such as osteomyelitis, but with recent infection in the same area, would like to proceed with plain films. Could be symptoms 2/2 dehydration. Will discuss future plans with patient upon review of the imaging. - XR Foot Rt AP/MO/Lat; Future Cellulitis of right lower extremity Resolved, per patient. Follow-up: PRN. Billing: Time - 30 minutes in prep, encounter with Kacey, documentation of visit. Nehemiah Stoll PA-C Family Medicine [facility] documented in this encounter Plan of Treatment Upcoming Encounters Date Type Department Care Team (Late st Contact Info) Description 08/13/2024 9:00 AM CDT Appointment [place] [address] Family Medicine [address] [place] [address] Jim Esparza PA-C [address] [place] [address] documented as of this encounter Visit Diagnoses Diagnosis Right foot pain- Primary Pain in limb Cellulitis of right lower extremity Cellulitis and abscess of leg, except foot documented in this encounter Care Teams Occupational Physician Relationship Specialty Start Date End Date Sal, Margot M, PA-C [address] [place] [address] PCP - General Physician Inside [employer] Sales 11/13/16 documented as of this encounter
--- OUTSIDE RECORDS SUMMARY | 2024-07-28 22:20 | XMS_ITS | Encounter Summary ---
Author Organization [employer] Address [address], [place] [address] Care Team Providers Care Boat Buffer Plastic Name Role Phone Margot Huang PA-C Primary Care Provider [phone] Reason for Visit * Procedure/Equipment (Routine) - Incomplete Specialty Diagnoses / Procedures Referred By Sukhi hassan Referred To Contact Diagnoses Right foot pain Procedures XR Foot Rt 3+ Views XR Foot Rt AP/MO/Lat Steve Stoll PA-C [address] [place] [address] Referral ID Status Reason Start Date Expiration Date V isits Requested Visits Authorized [id number] Incomplete 07/23/2024 10/22/2025 1 1 Encounter Details Date Type Department Care Team (Late st Contact Info) Description 07/23/2024 12:20 PM CDT Ancillary Procedure [facility] [address] Radiology [address] [place] [phone] Steve Stoll PA-C [address] [place] [address] Right foot pain Social History Tobacco Use Types Packs/Day Years [...] as of this encounter Plan of Treatment Upcoming Encounters Date Type Department Care Team (Late st Contact Info) Description 08/13/2024 9:00 AM CDT Appointment [place] [address] Family Medicine [address] [place] [address] Jim Esparza PA-C [address] [place] [address] documented as of this encounter Procedures Procedure Name Priority Date/Time Associated Diagnosis Comments XR FOOT RT 3+ VIEWS Routine 07/23/2024 1 2:30 PM CDT Right foot pain documented in this encounter Results * XR Foot Rt 3+ Views (07/23/2024 12:30 PM CDT) Anatomical Region Laterality Modality Lower Extremity, Foot Digital Ra diography 07/23/2024 12:2 2 PM CDT Impressions 07/23/2024 2:27 PM CDT COMPARISON: ??None. FINDINGS: ??Bony structures of the right foot are normal. ??Joint spaces appear within normal limits. ??There is no dislocation or significant degenerative change. Narrative Procedure Note Ritesh Nogueira MD - 07/23/2024 IMPRESSION COMPARISON: None. FINDINGS: Bony structures of the right foot are normal. Joint spacesappear within normal limits. There is no dislocation or significantdegenerative change. Steve Stoll PA-C [facility] documented in this encounter Visit Diagnoses Diagnosis Right foot pain Pain in limb documented in this encounter Care Teams Boat Buffer Plastic Relationship Specialty Start Date End Date Margot Huang PA-C [address] [place] [address] PCP - General Physician Desk Assistant 11/13/16 documented as of this encounter
--- OUTSIDE RECORDS SUMMARY | 2024-07-28 22:20 | XMS_ITS | Clinical Summary ---
Author Organization [facility] Address [address] [address] Care Team Providers Care Disaster Or Damage Control Specialist Name Role Phone Margot Huang PA-C Primary Care Provider [phone] Source Comments You are receiving this document as you are listed as the primary care provider,follow-up provider, or the patient has been referred to you for consultation.This is in compliance with the Medicare and[facility] EHR Incentive Program,which states Providers who transition their patient to another setting of careor provider of care or refers their patient to another provider of care shouldprovide summary care record for each transition of care or referral. [employer] Allergies Active Allergy Reactions Criticality Noted Date [...] mouth daily. Active rizatriptan (MAXALT) 10 MG tabletIndications :Intractable migraine with aura without status migrainosus 1 tab po at onset of migraine, 1 tab po 2 hrs later if needed. Max 9 pills per month. 9 Tablet 11 05/22/2024 Active methylPREDNISolon e (MEDROL 21 TABLET DOSEPACK) 4 MG tabletIndications :Intractable migraine with aura without status migrainosus Follow package directions 21 Tablet 05/22/2024 07/22/2024 Discontinue d(*Resolved Condition) Active Problems Problem Noted Date Diagnosed Date [...] Encounters Date Type Department Care Team Description 07/23/2024 12:20 PM CDT Ancillary Procedure [facility] [address] Radiology [address] [place] [address] Steve Stoll PA-C Right foot pain 07/23/2024 7:30 AM CDT Telemedicine [facility] [address] [place] [address] Steve Stoll PA-C Right foot pain (Primary Dx); Cellulitis of right lower extremity 07/15/2024 Nurse Triage Careline [address] [place] [address] Leobardo Lloyd X CELLULITIS 05/22/2024 7:40 AM CDT Telemedicine [facility] [address] [place] [address] Antonia Edmond, SEARCH ENGINE OPTIMIZATION CONSULTANT, STENOTYPE MACHINE OPERATOR Intractable migraine with aura without status migrainosus [...] 08/23/2022 8:08 AM CDT Plan of Treatment Upcoming Encounters Date Type Department Care Team (Late st Contact Info) Description 08/13/2024 9:00 AM CDT Appointment [place] [address] Family Medicine [address] [place] [address] iJm Esparza, PADMINI [address] [place] [address] Health Maintenance Due Date Last Done Comments [...] on patient's age to complete this topic Infant RSV Aged Out No longer eligi ble based [...] 1 2:30 PM CDT Right foot pain HIV 1/2 AG/AB 4TH GEN Routine 10/02/2017 1:40 PM COUNTER TOP MAKER Encounter for supervision of normal first in first trimester PAP TEST, ROUTINE Routine 08/21/2017 11: 14 AM CDT Screening for malignant neoplasm of cervix from Last 3 Months or Most Recently Relevant to Health Maintenance Results * XR Foot Rt 3+ Views [...] significantdegenerative change. Steve Stoll PA-C RAD GD * HIV 1/2 Ag/Ab 4th Generation (10/02/2017 1:40 PM COUNTER TOP MAKER) HIV 1/2 AG/AB 4thGEN Negative (Non Reactive) NEGNR [facility] Comment:HIV-1 p24 Ag and HIV -1/HIV-2 Ab not detected. 10/02/2017 1:40 PM COUNTER TOP MAKER 10/02/2017 1:47 PM COUNTER TOP MAKER Narrative [facility] - 10/02/2017 7:15 PM COUNTER TOP MAKER Performed at [facility], [address] [place] [address] ??[id number] Meg Gracia APRN, CNM LAB_1 [facility] [phone] * Pap Test, Routine (08/21/2017 11:14 AM CDT) Cytology, Pap (NOTE) [employer] Player Cytology Report Patient Name: TURNER TIDWELL Taken: [...] ?? Microscopic Description Microscopic examination is performed. [facility] Department of Pathology [address] [place] [id number] [facility] 08/21/2017 11:1 4 AM CDT 08/21/2017 6:30 PM CDT Genaro Jamil MD LAB_1 [facility] [phone] from Last 3 Months or Most Recently Relevant to Health Maintenance Advance Directives * Full Code (Latest Code Status on File) Date Activated Date Inactivated Comments 11/27/2017 8:06 AM 11/27/2017 2:06 PM Care Teams Disaster Or Damage Control Specialist Relationship Specialty Start Date End Date Margot Huang PA-C [address] [place] [address] PCP - General Physician Math Coach 11/13/16
--- OUTSIDE RECORDS SUMMARY | 2024-07-28 22:21 | XMS_ITS | Encounter Summary ---
Author Organization [facility] [employer] Address [address] [place] [address] Care Team Providers Care Direct Service Provider Name Role Phone Margot Huang PA-C Primary Care Provider [phone] Reason for Visit * Reason Comments CELLULITIS Encounter Details Date Type Department Care Team (Late st Contact Info) Description 07/15/2024 Nurse Triage Careline [address] [place], [place] [address] Leobardo Lloyd X CELLULITIS Social History Tobacco [...] cellulitis Protocols used: Cellulitis on Antibiotic Follow-up [id number] * Leobardo Lloyd - 07/15/2024 6:06 PM CDT Verified patient identity using three identifiers: Yes Caller's relationship to patient: Self, Do you have a provider/clinic where you are seen for this? STACEY/Dejon/Kari/Colton Are you calling about a /MEDICAL AIDES TEACHER related concern? No Symptoms Describe the reason [...] Info) Description 08/13/2024 9:00 AM CDT Appointment [place] [address] Family Medicine [address] [place] [address] Jim Esparza PA-C [address] [place] [address] documented as of this encounter Visit Diagnoses Not on filedocumented in this encounter Care Teams Direct Service Provider Relationship Specialty Start Date End Date Margot Huang PA-C [address] [place] [address] PCP - General Physician Sanitation Worker Cleaning Equipment 11/13/16 documented as of this encounter
--- OUTSIDE RECORDS SUMMARY | 2024-07-28 22:21 | XMS_ITS | Encounter Summary ---
Author Organization [facility] Address [address] [place] [address] Care Team Providers Care Cio Name Role Phone Eileen Vaughn PA-C Primary Care Provid er [facility] Primary Care Pro vider Encounter Details Date Type Department Care Team (Late st Contact Info) Description 07/31/2013 [facility] [place] [facility] [id number] [place] [address] [facility] Social History Tobacco Use Types Packs/Day Years [...] on filedocumented in this encounter Care Teams Cio Relationship Specialty Start Date End Date Eileen Vaughn PA-C [address] [address] [place] [address] PCP - General Family Practice 12/07/10 08/08/23 [facility] [address] [place], [place] [phone] PCP - General 08/09/23 documented as of this encounter
--- OUTSIDE RECORDS SUMMARY | 2024-07-28 22:21 | XMS_ITS | Referral Summary ---
Author Organization [facility] Address [address] [place] [address] Care Team Providers Care Ticketing Agent Name Role Phone Clinic, [facility] [place] Primary Care Pro vider Allergies Active Allergy [...] 104.3 kg (230 lb) 11/02/2018 9:30 PM FIREBRICK LAYER Height 167.6 cm (5' 6) 11/02/2018 9:30 PM FIREBRICK LAYER Body Mass Index 37.12 11/02/2018 9:30 PM FIREBRICK LAYER Plan of Treatment Not on file Procedures [...] AM CDT) Hepatitis C Antibody Negative NEG [facility] Blood specimen (specimen) 08/18/2014 9:29 AM CDT 08/18/2014 9:32 AM CDT Wiliam Lagunas PA-C LAB - BLOOD ORDERABLES [facility] * PAP imaged thin layer, screen (08/18/2014 12:00 AM CDT) PAP NIRMALA Zaldivar Report Patient Name: TURNER TIDWELL MR#: [id number] Specimen #: [id number] Collected: 08/18/2014 Received: 08/19/2014 Reported: 08/24/2014 12:44 [...] Vieyra ( ASCP) Processed and screened at [facility] CLINICAL HISTORY: LMP: 08/09/2014 Previous normal pap Date of Last Pap: 04/10/2012 Previous abnormal pap: lgsil, Papanicolaou Test Limitations: ??Cervical cytology is a screening test with limited sensitivity; regular screening is critical for cancer prevention; Pap tests are primarily effective for the diagnosis/preventi on of squamous cell carcinoma, not adenocarcinomas or other cancers. TESTING LAB LOCATION: [address] ??[phone] COLLECTION SITE: Client: ??[facility] Location: [facility] (R) COPATH Cytologic material (specimen) 08/18/2014 08/19/2014 11:48 AM CDT Wiliam Lagunas PA-C LAB - OPTIME CLINICAL SPECIMEN COPATH from Last 3 Months or Most Recently Relevant to Health Maintenance Care Teams Ticketing Agent Relationship Specialty Start Date End Date [facility], [address] [address] PCP - General 08/09/23
--- OUTSIDE RECORDS SUMMARY | 2024-07-28 22:21 | XMS_ITS | Encounter Summary ---
Author Organization [facility] Address [address], [place] [address] Care Team Providers Care Yeast Tender Name Role Phone Margot Huang PA-C Primary Care Provider [phone] Encounter Details Date Type Department Care Team (Late Contact Info) Description 10/15/2017 Correspondence External to External, [place] [address] NOTICE OF NON COVERED SERVICE Social History [...] Encounters Date Type Department Care Team (Late Contact Info) Description 08/13/2024 9:00 AM CDT Appointment [place] [address] Family Medicine [address] [place] [address] Jim Esparza PA-C [address] [place] [address] documented as of this encounter Visit Diagnoses Not on filedocumented in this encounter Additional Health Concerns Infection Onset Date Last Indicated Resolved Time R/O COVID19 05/20/2020 05/20/2020 05/27/2020 3:18 AM CDT documented as of this encounter Care Teams Yeast Tender Relationship Specialty Start Date End Date Margot Huang PA-C [address] [place] [address] PCP - General Physician Anodic Treater 11/13/16 documented as of this encounter
--- OUTSIDE RECORDS SUMMARY | 2024-07-28 22:21 | XMS_ITS | Clinical Summary ---
Author Organization [facility] Address [address] [place] [id number] Care Team Providers Care Supply Planner Name Role Phone Clinic, [facility] v[facility] Allergies Active Allergy [...] 104.3 kg (230 lb) 11/02/2018 9:30 PM SUPERVISOR TRAIN OPERATIONS Height 167.6 cm (5' 6) 11/02/2018 9:30 PM SUPERVISOR TRAIN OPERATIONS Body Mass Index 37.12 11/02/2018 9:30 PM SUPERVISOR TRAIN OPERATIONS Plan of Treatment Health Maintenance Due Date [...] AM CDT) Hepatitis C Antibody Negative NEG [facility] MICROBIOLOGY Blood specimen (specimen) 08/18/2014 9:29 AM CDT 08/18/2014 9:32 AM CDT Wiliam Lagunas PA-C LAB - BLOOD ORDERABLES [facility] MICROBIOLOGY * PAP imaged thin layer, screen (08/18/2014 12:00 AM CDT) PAP NIRMALA Zaldivar Report Patient Name: TURNER TIDWELL MR#: [id number] Specimen #: [id number] Collected: 08/18/2014 Received: 08/19/2014 Reported: 08/24/2014 12:44 [...] Vieyra ( ASCP) Processed and screened at [facility] CLINICAL HISTORY: LMP: 08/09/2014 Previous normal pap Date of Last Pap: 04/10/2012 Previous abnormal pap: lgsil, Papanicolaou Test Limitations: ??Cervical cytology is a screening test with limited sensitivity; regular screening is critical for cancer prevention; Pap tests are primarily effective for the diagnosis/preventi on of squamous cell carcinoma, not adenocarcinomas or other cancers. TESTING LAB LOCATION: [facility] [address] [place], [place] ??[address] COLLECTION SITE: Client: ??[facility] Location: [facility] (R) COPATH Cytologic material (specimen) 08/18/2014 08/19/2014 11:48 AM CDT Wiliam Lagunas PA-C LAB - OPTIME CLINICAL SPECIMEN COPATH from Last 3 Months or Most Recently Relevant to Health Maintenance Care Teams Supply Planner Relationship Specialty Start Date End Date Clinic, [facility] [id number] [place] [id number] PCP - General 08/09/23
--- OUTSIDE RECORDS SUMMARY | 2024-07-28 22:21 | XMS_ITS | Clinical Summary ---
Author Organization [facility] Address [place], [place] [address] Care Team Providers Care Process Inspector Name Role Phone Gladys Abebe Primary Care Provider + Allergies No known active allergies Medications Medication Sig Dispensed Refills Start Date [...] mouth 3 times daily if needed. Active [id number] h Oil (Fish OiL) 1,000 mg (120 mg-180 mg) cap Take 2 Capsules by mouth once daily. Active RIBOFLAVIN, VITAMIN B2, ORAL Take by mouth. Active rizatriptan (Maxalt) 10 mg tablet Take 10 mg by mouth 2 times daily if needed for Migraine. Give at minimum 2hrs apart. Max Dose: 30mg per 24hrs. Active oxyCODONE (ROXICODONE) 5 mg immediate release tabletIndications:G allstones Take 1-2 Tablets (5-10 mg) by mouth every 4 hours if needed for Pain. 10 Tablet 02/03/2024 Active trimethoprim-sulfam ethoxazole (Bactrim DS) 160-800 mg tabIndications:Cell ulitis of skin Take 1 Tablet by mouth two times daily for 7 days. 14 Tablet 07/26/2024 08/02/2024 Active Active Problems Problem Noted Date Diagnosed Date Gallstones 02/03/2024 Encounters Date Type Department Care Team Description 07/26/2024 2:50 PM CDT Office Visit [facility] [address] [facility] [address] [place] [address] Shyann Umana, DIOGENES Derm Problem 07/26/2024 Travel from Last 3 Months Immunizations Name Administration Dates Next Due DTP [...] Sign Reading Time Taken Comments Blood Pressure 127/88 07/26/2024 3:04 PM CDT Pulse 93 07/26/2024 3:04 PM CDT Temperature 36.6 ??C (97.9 ??F) 07/26/2024 3:04 PM CD T Respiratory Rate 14 07/26/2024 3:04 PM CDT Oxygen Saturation 98% 07/26/2024 3:04 PM CDT Inhaled Oxygen Concentration - - Weight 87 kg (191 lb 14.4 oz) 07/26/2024 3:04 PM CDT Height 167.6 cm (5' 6) 02/18/2024 3:36 PM CDT Body Mass Index 30.97 02/18/2024 3:36 PM CDT Plan of Treatment Upcoming Encounters Date Type Department Care Team (Late st Contact Info) Description 10/22/2024 10:00 AM TRUST MANAGER Office Visit [facility] [address] [address] [place] [address] [place] [address] Health Maintenance Due Date Last Done Comments [...] Comments Code Status Discussion: Discussed Care Teams Process Inspector Relationship Specialty Start Date End Date [facility] [address] [place] [address] PCP - General 01/14/24
--- OUTSIDE RECORDS SUMMARY | 2024-07-28 22:21 | XMS_ITS | Encounter Summary ---
Author Organization [facility] Address [address], [place] [address] Care Team Providers Care Automatic Machines Supervisor Name Role Phone Margot Huang PA-C Primary Care Provider [phone] Encounter Details Date Type Department Care Team (Late st Contact Info) Description 11/27/2017 Consent for Procedure/Treatme nt [facility] Department INFORMED CONSENT RECORD Social History Tobacco [...] Info) Description 08/13/2024 9:00 AM CDT Appointment [place] [address] [facility] [address] [place] [address] Jim Esparza PA-C [address] [place] [address] documented as of this encounter Visit Diagnoses Not on filedocumented in this encounter Additional Health Concerns Infection Onset Date Last Indicated Resolved Time R/O COVID19 05/20/2020 05/20/2020 05/27/2020 3:18 AM CDT documented as of this encounter Care Teams Automatic Machines Supervisor Relationship Specialty Start Date End Date Margot Huang PA-C [address] [place] [address] PCP - General Physician Edi Programmer 11/13/16 documented as of this encounter
--- OUTSIDE RECORDS SUMMARY | 2024-07-28 22:21 | XMS_ITS | Encounter Summary ---
Author Organization [facility] Address [address] [address] Care Team Providers Care Rn Palliative Name Role Phone Margot Huang PA-C Primary Care Provider [phone] Reason for Visit * Reason Comments Video Visit HEADACHE,MIGRAINE Encounter Details Date Type Department Care Team (Late st Contact Info) Description 05/22/2024 7:40 AM CDT Telemedicine [address] [id number] Antonia Edmond, BRANT, HOUSEKEEPING LAUNDRY WORKER [address] [place] [address] [id number] Intractable migraine with aura without status migrainosus [...] Info) Description 08/13/2024 9:00 AM CDT Appointment [place] [address] [facility] [address] [place] [address] Jim Esparza PA-C [address] [place] [address] documented as of this encounter Visit Diagnoses Diagnosis Intractable migraine with aura without status migrainosus- Primary Migraine with aura, with intractable migraine, so stated, without mention of status migrainosus documented in this encounter Care Teams Rn Palliative Relationship Specialty Start Date End Date Margot Huang PA-C [address] [place] [address] PCP - General Physician Boiler Tender 11/13/16 documented as of this encounter
== END 2024-07-28 23:35 | disposition home or self-care (01) ==
PROVIDERS: Emergency Provider Family Medicine
DX: L03.116 Cellulitis of left lower limb (principal); R20.2 Paresthesia of skin
CPT/HCPCS: 99283; 99284

== ENCOUNTER 2024-08-20 09:19 | Emergency (ER) | payer OTHER, SELFPAY ==
[2024-08-20 09:28] VITALS: BP 122/82; PULSE 76; RESP 18; TEMP 36.6; O2SAT 98; BMI 29.1
--- NOTE | 2024-08-20 10:00 | ED.GENADULT ---
HPI - General Adult General Chief complaint: Anxiety Stated complaint: Palpitations, short of breath, panic Time Seen by Provider: 08/20/24 09:20 History of Present Illness HPI narrative: This 33-year-old female comes in reporting concern about her heart and states that she does have anxiety and panic symptoms. She states that she had been on Lexapro and discontinued this last spring but now has restarted it 2 weeks ago. She is having significant anxiety and some panic episodes also. She states that she has an oximeter at home and frequently puts this on and sometimes notes that her heart rate is around 55 beats per minute and other times it is upper on 65. She is concerned about these numbers. She does report some chest discomfort that is not related to exertion but seems to be related to anxiety. She does not have any nausea, vomiting, lightheadedness, or diaphoresis. She does not have any exercise intolerance. Related Data Home Medications ?Medication ?Instructions ?Recorded ?Confirmed escitalopram oxalate 20 mg tablet 20 mg PO DAILY 02/07/24 07/20/24 (Lexapro) rizatriptan 10 mg tablet 10 mg PO DIRECTED 02/07/24 07/20/24 Allergies Allergy/AdvReac Type Severity Reaction Status Date / Time Sulfa (Sulfonamide Allergy Mild Hives Verified 07/20/24 15:39 Antibiotics) Review of Systems Status of ROS: Reports: 10 or more systems reviewed and unremarkable except as noted in History and below Narrative: Constitutional: No fevers, no weight gain or loss. Eyes: No discharge. No vision changes. HENT: No congestion, no sore throat, no ear pain. Cardiovascular: No palpitations. She feels that her heart sometimes gets slow and then faster and sometimes skips a beat. Respiratory: No shortness of breath, no wheezes, no cough. Gastrointestinal: No abdominal pain, no vomiting, no diarrhea. Genitourinary: No dysuria, no hematuria. Musculoskeletal: Normal range of motion. Skin: No rashes, no pruritis. Neurological: No dizziness, weakness, sensory change, speech change. Endo/Heme/Allergies: No bruising or bleeding. No polydipsia. Pysch: no suicidality, no insomnia. She reports anxiety. All other systems reviewed and are negative. PFSH PFSH Social History Smoking Status: Never smoker Do you use any of these nicotine containing products: Vaping Products Second hand tobacco smoke exposure: No How often do you have a drink containing alcohol: never AUDIT-C Alcohol total score: 0 Non-prescribed substance use: denies use service: No Exam Narrative: Exam Narrative: Constitutional: Well-developed, well-nourished, no acute distress. HEENT: Normocephalic, atraumatic. Neck: Normal range of motion. Nontender. Supple. Heart: Regular. No murmurs. Normal rate. Intact distal pulses. Lungs: Clear to auscultation. No chest discomfort. No wheezes, rhonchi, or rales. Abdomen: Normal bowel sounds. Nontender. No rebound tenderness. Genitalia: Deferred. Back: No midline tenderness. Normal range of motion. Extremities: Normal range of motion. No injury. Skin: Intact. No rash. Warm. No erythema or pallor. Neurologic: No altered sensation. No weakness. Alert and oriented. Psychiatric: No suicidality. No insomnia. Anxiety symptoms as described above. Nursing notes and vitals signs are reviewed. Const: Vital Signs, click to edit/add: Vital Signs - 24 hr 08/20/24 09:28 08/20/24 10:01 08/20/24 10:32 Temperature 97.8 F Pulse Rate 61 55 L Pulse Rate [Pulse Oximeter] 76 Respiratory Rate 18 18 14 Blood Pressure 121/81 120/75 Blood Pressure [Ri ght Upper Arm] 122/82 Pulse Oximetry 98 98 98 Oxygen Delivery Me thod Room Air Course Vital Signs Vital signs: Initial Vital Signs Temperature 97.8 F 08/20/24 09:28 Temperature Source Temporal Artery Scan 08/20/24 09:28 Pulse Rate 76 08/20/24 09:28 Pulse Rhythm Regular 08/20/24 09:28 Respiratory Rate 18 08/20/24 09:28 Blood Pressure 122/82 08/20/24 09:28 Blood Pressure Mean 95 08/20/24 09:28 Blood Pressure Position Supine 08/20/24 09:28 Pulse Oximetry 98 08/20/24 09:28 Oxygen Delivery Method Room Air 08/20/24 09:28 Vital Signs Temperature 97.8 F 08/20/24 09:28 Pulse Rate 76 08/20/24 09:28 Respiratory Rate 18 08/20/24 09:28 Blood Pressure 122/82 08/20/24 09:28 Pulse Oximetry 98 08/20/24 09:28 Oxygen Delivery Method Room Air 08/20/24 09:28 Temperature 97.8 F 08/20/24 09:28 Pulse Rate 55 L 08/20/24 10:32 Respiratory Rate 14 08/20/24 10:32 Blood Pressure 120/75 08/20/24 10:32 Pulse Oximetry 98 08/20/24 10:32 Oxygen Delivery Method Room Air 08/20/24 09:28 Discharge Plan Discharge Clinical Impression: Acute anxiety Additional Instructions: Continue current plans. Use medications as needed and directed. Follow up with MD for ongoing management. Return if worsening. Prescriptions: No Action escitalopram oxalate [Lexapro] 20 mg tablet 20 mg PO DAILY rizatriptan 10 mg tablet 10 mg PO DIRECTED Follow Up/Referrals: Provider,Not a Local [Primary Care Provider] - Stand Alone Forms: MyHealth Info Instructions Procedures Ultrasound Cardiac exam #1: Anatomical areas examined: parasternal long and parasternal short Indications: other Exam type: limited transthoracic echocardiogram Impression: negative exam
[2024-08-20 10:01] VITALS: BP 121/81; PULSE 61; RESP 18; O2SAT 98
--- OUTSIDE RECORDS SUMMARY | 2024-08-20 10:27 | XMS_ITS | Encounter Summary ---
Author Organization [facility] Address [address] [address] Care Team Providers Care Superintendent Compressor Stations Name Role Phone Margot Huang PA-C Primary Care Provider [phone] Reason for Visit * Procedure/Equipment (Routine) - Incomplete Specialty Diagnoses / Procedures Referred By Sukhi t Referred To Contact Diagnoses Right calf pain Procedures US Venous Right Lower Extrem Doppler Antonia Ya PA-C [address] [place] [address] Referral ID Status Reason Start Date Expiration Date V isits Requested Visits Authorized [id number] Incomplete 08/11/2024 11/10/2025 1 1 Encounter Details Date Type Department Care Team (Late st Contact Info) Description 08/11/2024 1:00 PM CDT Ancillary Procedure [facility] [address] [place] [phone] Antonia Ya PA-C [address] [place] [address] Right calf pain Social History Tobacco Use Types Packs/Day Years Used Date Smoking Tobacco: Former Cigarettes 0.5 10 0 01/21/2012 - 01/20/2022 Smokeless Tobacco: Former Comments:Pt vapes Alcohol Use Standard Drinks/Week Comments Not Currently [...] Care Team (Late st Contact Info) Description 08/24/2024 4:00 PM RACECAR DRIVER Appointment [facility] [address] [facility] [place] [address] Swati Murray, SENSORY SCIENTIST, HEALTH INFORMATION ASSISTANT [address] [facility] [place] [address] documented as of this encounter Procedures Procedure Name Priority Date/Time Associated Diagnosis Comments US VENOUS RIGHT LOWER EXTREM DOPPLER STAT 08/11/2024 12:03 PM CDT Right calf pain documented in this encounter Results * US Venous Right Lower Extrem Doppler (08/11/2024 12:03 PM CDT) Anatomical Region Laterality Modality Vascular, Leg Ultrasound 08/11/2024 11:3 5 AM CDT Impressions 08/11/2024 12:05 PM CDT No evidence of deep venous thrombosis. Small calf vein thrombosis cannot be completely excluded by this technique. Narrative 08/11/2024 12:05 PM CDT COMPARISON: ??None. CLINICAL HISTORY: ??right calf pain and tightness FINDINGS: The venous system of the right lower extremity was visualized using color-flow Doppler technique. ??The common femoral, proximal deep femoral, femoral, popliteal, and visualized portions of the posterior tibial and peroneal veins show normal compressibility, color flow, and response to augmentation. The great saphenous vein compresses normally. MORA'S CYST: No Procedure Note Ritesh Nogueira MD - 08/11/2024 COMPARISON: None. CLINICAL HISTORY: right calf pain and tightness FINDINGS: The venous system of the right lower extremity was visualizedusing color-flow Doppler technique. The common femoral, proximal deepfemoral, femoral, popliteal, and visualized portions of the posteriortibial and peroneal veins show normal compressibility, color flow, andresponse to augmentation. The great saphenous vein compresses normally. MORA'S CYST: No IMPRESSION No evidence of deep venous thrombosis. Small calf vein thrombosis cannotbe completely excluded by this technique. Antonia Ya PA-C [facility] documented in this encounter Visit Diagnoses Diagnosis Right calf pain documented in this encounter Care Teams Superintendent Compressor Stations Relationship Specialty Start Date End Date Margot Huang PA-C [address] [place] [address] PCP - General Physician Physical Education Instructor 11/13/16 documented as of this encounter
--- OUTSIDE RECORDS SUMMARY | 2024-08-20 10:27 | XMS_ITS | Encounter Summary ---
Author Organization [employer] Address [address] [address] Care Team Providers Care Hairspring Inspector Name Role Phone Margot Huang PA-C Primary Care Provider [phone] Reason for Referral * Consult/Transfer Care (Routine) - New Request Specialty Diagnoses / Procedures Referred By Sukhi hassan Referred To Contact Diagnoses Anxiety (HRC) Rosa Maria Phillips MD [address] [place] [address] Referral ID Status Reason Start Date Expiration Date V isits Requested Visits Authorized [id number] New Request 08/19/2024 11/18/2025 1 1 Scheduling Instructions Your clinician has recommended an appointment with Behavioral Health. You may call [phone] to schedule your appointment. This recommended service/s may not be covered by your health plan (health insurance). To find out your specific benefit coverage, please call the number on your insurance card.?? Please note that in order to maintain access for all patients, Behavioral Health does have a late cancellation policy. In order to avoid being restricted from scheduling future appointments in Behavioral Health you will need to cancel at least 24 hours in advance. We request you that you arrive 30 minutes before your first appointment to complete paperwork. Question Answer Appointment Urgency? Non-Urgent Reason for request? Depression, OCD Requested Services? Therapy/Counseling Pt aware and agrees to this order: Confirmed with patient Comments Jamey with Swati Reason for Visit * Reason Comments MEDICATION CHECK Encounter Details Date Type Department Care Team (Late st Contact Info) Description 08/19/2024 2:30 PM CDT [facility] [address] [place], [place] [id number] Rosa Maria Phillips MD [address] [place] [address] Anxiety (HRC) (Primary Dx); Intractable migraine with aura without status migrainosus Social History Tobacco Use Types Packs/Day Years [...] on file documented as of this encounter Last Filed Vital Signs Vital Sign Reading Time Taken Comments Blood Pressure 126/79 08/19/2024 2:30 PM CDT 1: 133/80 p86, 2: 119/78 p92 Pulse 89 08/19/2024 2:30 PM CDT Temperature - - Respiratory Rate - - Oxygen Saturation - - Inhaled Oxygen Concentration - - Weight 82 kg (180 lb 12.8 oz) 08/19/2024 2:21 PM CDT Height - - Body Mass Index 29.18 08/13/2024 8:55 AM CDT documented in this encounter Progress Notes * Rosa Maria Phillips MD - 08/19/2024 2:30 PM CDT CHIEF COMPLAINT: Chief Complaint Patient presents with MEDICATION CHECK SUBJECTIVE : Kacey Hines is an 33 y.o. female who presents for evaluation of severe anxiety, depression and obsessive compulsive behaviors. She was restarted on Lexapro 10 mg roughly 3 weeks ago and the dose was increased to 20 mg 1 week ago. She has been on Lexapro in the past and has done well. She is obsessing about her health checking her oxygen and pulse rate multiple times throughout the day. She has noted a small indent on the anterior portion of her scalp which she is very worried about it beinga cancer, she has looked up and she is concerned that it could be multiple myeloma. 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 She admits that she is not sleeping well, she feels her heart racing all the time, when she lays down at night she feels her heart racing and is also restless. She has little to no appetite and has lost 8 lb in the last 1 week. She is trying to do some exercise but states it is sporadic. She is in today with her aunt. She has seen Mental Health in the past but not recently and I will try to get her to be seen by Nasreen Torrez and I would recommend that she try to get back into her prior mental health provider. I am going to recommend that she continue with the Lexapro 20 mg. I refilled her Maxalt for migraine headaches and I am recommending atenolol 12.5 mg at bedtime to help with her heart rate but also lessen her migraine heada ches. I gave her a prescription for hydroxyzine to take as a rescue medicine. Risks and benefits ofthese medications were reviewed. I am recommending that she follow-up with me in 2 weeks and this could be done virtually. She is waiting to get on new insurance after the of the year and I wouldrecommend that she come in at that time for a complete health maintenance exam.. PROBLEM LIST: Patient Active Problem List Diagnosis ROSE MARY (generalized anxiety disorder) ([facility]) History of depression Migraine with aura and without status migrainosus, not intractable S/P primary low transverse Gestational hypertension PAST MEDICAL HISTORY : Past Medical History: Diagnosis Date Bipolar affect, depressed ([facility]) Bipolar affective disorder ([facility]) 07/28/2009 Cellulitis of right lower extremity 07/08/2024 Treated at outside urgent care - treated with oral Keflex QID x 10 days Depression ([facility]) Posttraumatic stress disorder ([facility]) 07/28/2009 Right foot pain 07/23/2024 Patient thought could be 2/2 recent cellulitis. Plain films ordered FAMILY HISTORY OR SICK CONTACTS : Family History Problem Relation Name Age of Onset Anxiety Mother Diabetes, Type II Maternal Grandmother Stroke Maternal Grandfather Grandpa Cancer, Breast Negative Family History Cancer, Colon Negative Family History Cancer, Ovary Negative Family History Bleeding Disorder Negative Family History Coronary Artery Disease Negative Family History Hyperlipidemia Negative Family History Hypertension Negative Family History Genetic Disorder Negative Family History Thromboembolic Disease Negative Family History Thyroid Disorder Negative Family History SOCIAL HISTORY : Social History Socioeconomic History Marital status: Unknown Spouse name: Not on file Number of children: Not on file Years of education: Not on file Highest education level: Not on file Occupational History 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 Tobacco Use Smoking status: Former Current packs/day: 0.00 Average packs/day: 0.5 packs/day for 10.0 years (5.0 ttl pk-yrs) Types: Cigarettes Start date: 01/21/2012 Quit date: 01/20/2022 Years since quittin.5 Smokeless tobacco: Former Tobacco comments: Pt vapes Vaping Use Vaping status: Every Day Substances: Flavoring, Nicotine-salt Substance and Sexual Activity Alcohol use: Not Currently Comment: barely Drug use: No Sexual activity: Yes Partners: Male Other Topics Concern Service No Blood Transfusions No Caffeine Concern No Occupational Exposure No Hobby Hazards No Sleep Concern No Stress Concern No Weight Concern No Special Diet No Back Care No Exercise No Bike Helmet No Seat Belt Yes Self-Exams No Social History Narrative Not on file Social Determinants of Health Financial Resource Strain: Not on file Food Insecurity: Not on file Transportation Needs: Not on file Physical Activity: Not on file Stress: Not on file Social Connections: Not on file Intimate Partner Violence: Not on file Housing Stability: Not on file MEDICATIONS : Current Outpatient Medications Medication Sig Dispense Refill atenolol (TENORMIN) 25 MG tablet Take 0.5 Tablets (12.5 mg) by mouth daily. 45 Tablet 3 escitalopram oxalate (LEXAPRO) 20 MG tablet Take 1 Tablet (20 mg) by mouth daily. 30 Tablet 3 hydrOXYzine HCl (ATARAX) 25 MG tablet Take 1 Tablet (25 mg) by mouth every 6 hours as needed. 30 Tablet 1 LORazepam (ATIVAN) 0.5 MG tablet Take 1 Tablet (0.5 mg) by mouth every 6 hours as needed for Anxiety. 15 Tablet 0 predniSONE (DELTASONE) 20 MG tablet Take 2 Tablets (40 mg) by mouth daily. (Patient not taking: Reported on 08/19/2024) 14 Tablet 0 rizatriptan (MAXALT) 10 MG tablet 1 tab po at onset of migraine, 1 tab po 2 hrs later if needed. Max 9 pills per month. 9 Tablet 11 No current facility-administered medications for this visit. ALLERGIES: Allergies Allergen Reactions Sulphadimidine [Sulfa Antibiotics] Hives REVIEW OF SYSTEMS : Positive: Except as noted above, the remainder of complete review of systems are negative. OBJECTIVE : Gen.: Alert, cooperative in no acute distress. Vital Signs: BP 126/79 (BP Location: Right Arm, BP Cuff Size: Large) Comment: 1: 133/80 p86, 2: 119/78 p92 Pulse 89 Wt 180 lb 12.8 oz (82 kg) LMP 07/22/2024 (Exact Date) BMI 29.18 kg/m?? Eyes: PERRLA, full EOM. Ears: Normal pinnae, clear canals,TM's with no redness or bulging. Nose: Patent, without deformity. Throat: Moist mucous membranes without lesions, erythema, or exudate. Neck: Supple, without masses, lymphadenopathy or tenderness. Respiratory: Normal respiratory effort. Lungs are clear to auscultation with good breath sounds bilaterally. Heart: RR without murmurs, rubs, or gallops. No carotid bruits No dermatologic changes on her scalp. She has a small anomaly across the anterior skull and reassurance was given Extremities: No cyanosis , nontender, no edema. Neurologic: Alert, oriented x3, nonfocal. LABS : ASSESSMENT /PLAN : ICD-10-CM 1. Anxiety (HRC) F41.9 Behavioral Health Adult/Peds hydrOXYzine HCl (ATARAX) 25 MG tablet atenolol (TENORMIN) 25 MG tablet 2. Intractable migraine with aura without status migrainosus G43.119 rizatriptan (MAXALT) 10 MG tablet atenolol (TENORMIN) 25 MG tablet Follow up in 2 weeks, sooner with concerns documented in this encounter Plan of Treatment Upcoming Encounters Date Type Department Care Team (Late st Contact Info) Description 08/24/2024 4:00 PM CHILDCARE CENTER ADMINISTRATOR Appointment [facility] [address] [address] Swati Murray, PIN MAKER, [facility] [address] [facility] [place] [address] Scheduled Referrals Name Type Priority Associated Diagnoses Orde r Schedule Behavioral Health Adult/Peds Referral Routine Anxiety (HRC) Ordered: 08/19/2024 documented as of this encounter Visit Diagnoses Diagnosis Anxiety (HRC)- Primary Anxiety state, unspecified Intractable migraine with aura without status migrainosus Migraine with aura, with intractable migraine, so stated, without mention of status migrainosus documented in this encounter Care Teams Hairspring Inspector Relationship Specialty Start Date End Date Margot Huang, PAKeenanC [address] [place] [address] PCP - General Physician Cutter Head Sharpener 11/13/16 documented as of this encounter
--- OUTSIDE RECORDS SUMMARY | 2024-08-20 10:27 | XMS_ITS | Encounter Summary ---
Author Organization [employer] Address [address], [place] [address] Care Team Providers Care Supervisor Lens Generating Name Role Phone Margot Huang PA-C Primary Care Provider [phone] Reason for Visit * Reason Comments ANXIETY * Consult/Transfer Care (Routine) - New Request Specialty Diagnoses / Procedures Referred By Sukhi t Referred To Contact Diagnoses Low back pain, unspecified back pain laterality, unspecified chronicity, unspecified whether sciatica present Right calf pain Antonia Ya PA-C [address] [place] [address] Referral ID Status Reason Start Date Expiration Date V isits Requested Visits Authorized [id number] New Request 08/11/2024 11/09/2024 1 1 Encounter Details Date Type Department Care Team (Late st Contact Info) Description 08/13/2024 9:00 AM CDT Office Visit [facility] [address] [facility] [address] [place] [address] Jim Esparza PA-C [address] [place], [place] [id number] Anxiety (HRC) (Primary Dx); Radiculopathy of lumbar region; Sacroiliitis (HRC) Social History Tobacco Use Types Packs/Day Years [...] Sign Reading Time Taken Comments Blood Pressure 123/75 08/13/2024 8:55 AM CDT Pulse 99 08/13/2024 8:55 AM CDT Temperature - - Respiratory Rate 16 08/13/2024 8:55 AM CDT Oxygen Saturation - - Inhaled Oxygen Concentration - - Weight 85.3 kg (188 lb) 08/13/2024 8:55 AM CDT Height 167.6 cm (5' 6) 08/13/2024 8:55 AM CDT Body Mass Index 30.34 08/13/2024 8:55 AM CDT documented in this encounter Patient Instructions * Patient Instructions* Jim Esparza PA-C - 08/13/2024 9:00 AM CDT Plan: 1). For Anxiety: -Continue Lexapro but will increase dose to 20mg daily. -Will try adding Propranolol 20mg twice daily for anxiety symptoms. Can increase to 40mg (2 tabs) twice daily if needed. -Lorazepam 0.5mg (#15 prescribed) to use sparingly for breakthrough symptoms. -If anxiety is not being well controlled by above may consider adding adjunctive medication (ie: Effexor (Venlafaxine) or other options as discussed. 2). For numbness in leg/sacroiliitis: -Prednisone 40mg daily for 7 days. -Chiropractor or physical therapy as discussed. 3). Close follow-up with acute worsening of symptoms or any other concerns, otherwise recheck in 3 weeks. documented in this encounter Progress Notes * Jim Esparza PA-C - 08/13/2024 9:00 AM CDT Chief Complaint Patient presents with ANXIETY History of Present Illness: Kacey Hines is a 33 y.o. female who presents with: 1). Anxiety: Has been having increased issues with anxiety recently started on Lexapro 10mg daily. (Had been on Lexapro in the past and Citalopram in the distant past. She had weaned off Lexapro feeling like she didn't need it anymore). Hasn't felt like the current 10mg dose has been working that well. She still has a lot of symptoms associated with anxiety including chest heaviness, feeling tense/nervous and worried about things. Historically she did better on 20mg dose. Discussed options to help with symptoms associated with anxiety such as Propranolol or Buspirone. She is still having somemore acute panic like attacks. Discussed very intermittent use of benzodiazepine until Lexapro becomes more effective. 2). Right leg pain/numbness, low back pain: [place] related to lumbar radiculopathy. She was seen in 08/11/2024 having more right sided calf pain. Had normal US of RLE. (She was having some issues with urinary retention that have improved. Was not felt these were related to cauda equina syndrome). She had been having issues with cellulitis in foot but that has resolved. She still has right low back pain, more posterior buttock pain consistent more likely with sacroiliitis. She has been doing some rn progressive care and Naproxen prescribed in . Review of Systems: As stated in HPI otherwise negative. Past Medical History: Reviewed and updated in medical record at visit Past Surgical History: Reviewed and updated in medical record at visit Family History: Reviewed and updated in medical record at visit Medications: Reviewed and reconciled in medical record at visit. Allergies: Reviewed and updated in medical record at visit. Physical Exam: Vitals: 08/13/24 0855 BP: 123/75 Pulse: 99 Resp: 16 GEN: Alert, oriented, well nourished/hydrated in NAD. Somewhat anxious with symptoms. EYES: PEERL, EOMI CHEST: Normal effort, CTA. HEART: RRR, No audible murmur, rub or gallop. SKIN: Warm and dry without rash M/S: No joint swelling or redness. Has focal tenderness over the right SI joint. Mild right lumbar paraspinal discomfort. Normal strength and DTRs in RLE. NEURO: CN 2-12 intact, non-focal exam PSYCH: Alert & oriented. Anxious affect. Normal speech pattern, normal interaction. Insight good. PHQ-9/ROSE MARY-7: (See medical record for details). Diagnosis: Encounter Diagnoses Name Primary? Anxiety (HRC) Yes Radiculopathy of lumbar region Sacroiliitis (HRC) Plan: 1). For Anxiety: -Continue Lexapro but will increase dose to 20mg daily. -Will try adding Propranolol 20mg twice daily for anxiety symptoms. Can increase to 40mg (2 tabs) twice daily if needed. -Lorazepam 0.5mg (#15 prescribed) to use sparingly for breakthrough symptoms. -If anxiety is not being well controlled by above may consider adding adjunctive medication (ie: Effexor (Venlafaxine) or other options as discussed. 2). For numbness in leg/sacroiliitis: -Prednisone 40mg daily for 7 days. -Chiropractor or physical therapy as discussed. 3). Close follow-up with acute worsening of symptoms or any other concerns, otherwise recheck in 3 weeks. Orders Placed This Encounter escitalopram oxalate (LEXAPRO) 20 MG tablet propranolol (INDERAL) 20 MG tablet predniSONE (DELTASONE) 20 MG tablet LORazepam (ATIVAN) 0.5 MG tablet documented in this encounter Plan of Treatment Upcoming Encounters Date Type Department Care Team (Late st Contact Info) Description 08/24/2024 4:00 PM RADIAL SAW OPERATOR Appointment [facility] [address] [place] [address] Swati Murray, CONSERVATION WORKER, INDUSTRIAL MACHINE ASSEMBLER [address] [place] [address] documented as of this encounter Visit Diagnoses Diagnosis Anxiety (HRC)- Primary Anxiety state, unspecified Radiculopathy of lumbar region Thoracic or lumbosacral neuritis or radiculitis, unspecified Sacroiliitis (HRC) Sacroiliitis, not elsewhere classified documented in this encounter Care Teams Supervisor Lens Generating Relationship Specialty Start Date End Date Margot Huang PA-C [address] [place] [address] PCP - General Physician Procurement Officer 11/13/16 documented as of this encounter
--- OUTSIDE RECORDS SUMMARY | 2024-08-20 10:27 | XMS_ITS | Encounter Summary ---
Author Organization [employer] Address [address] [address] Care Team Prov[address] Care [address] Bailiff Name Role Phone Margot Huang PA-C Primary Care Provider [phone] Reason for Visit * Procedure/Equipment (Routine) - Incomplete Specialty Diagnoses / Procedures Referred By Sukhi hassan Referred To Contact Diagnoses Right foot pain Procedures XR Foot Rt 3+ Views XR Foot Rt AP/MO/Lat Steve Stoll PA-C [address] [place] [address] Referral ID Status Reason Start Date Expiration Date V isits Requested Visits Authorized [id number] Incomplete 07/23/2024 10/22/2025 1 1 Encounter Details Date Type Department Care Team (Late st Contact Info) Description 07/23/2024 12:20 PM CDT Ancillary Procedure [facility] [address] Radiology [address] [place] [id number] Steve Stoll PA-C [address] [place] [address] Right foot pain Social History Tobacco Use [...] st Contact Info) Description 08/24/2024 4:00 PM HOROLOGIST APPRENTICE Appointment [facility] [address] [facility] [place] [address] Swati Murray, PHOTO PRINTER, GRAPHICS INTERN [address] [facility] [place] [address] documented as of this encounter Procedures Procedure [...] limb documented in this encounter Care Teams Court Bailiff Relationship Specialty Start Date End Date Margot Huang PA-C [address] [place] [address] PCP - General Physician Char House Supervisor 11/13/16 documented as of this encounter
--- OUTSIDE RECORDS SUMMARY | 2024-08-20 10:27 | XMS_ITS | Encounter Summary ---
Author Organization [facility] Address [address] [place] [address] Care Team Providers Care Brooch And Bracelet Maker Name Role Phone Margot Huang PA-C Primary Care Provider [phone] Reason for Visit * Reason Comments Leg Pain Ever since having ce llulitis on her right leg, she gets weird sensations. She went to the ER in [place] and was told she could possibly have MS. She does get tingling sensations in her feet. Encounter Details Date Type Department Care Team (Late st Contact Info) Description 08/06/2024 9:40 AM CDT [facility] [address] [place] [address] Robert Valdez, [facility] [address] [place], [place] [id number] Generalized anxiety disorder with panic attacks (HRC) (Primary Dx); History of depression Social History Tobacco Use Types Packs/Day Years [...] Sign Reading Time Taken Comments Blood Pressure 120/83 08/06/2024 9:39 AM CDT Pulse 109 08/06/2024 9:39 AM CDT Temperature - - Respiratory Rate - - Oxygen Saturation - - Inhaled Oxygen Concentration - - Weight 85.4 kg (188 lb 4.8 oz) 08/06/2024 9:39 A M CDT Height - - Body Mass Index 30.39 08/23/2022 8:08 AM CDT documented in this encounter Progress Notes * Robert Valdez, [facility] - 08/06/2024 9:40 AM CDT Chief Complaint Patient presents with Leg Pain Ever since having cellulitis on her right leg, she gets weird sensations. She went to the ER in [place] and was told she could possibly have MS. She does get tingling sensations in her feet. Subjective: The patient is a pleasant 33-year-old female with a medical history significant for generalized anxiety disorder with panic attacks, major recurrent depression among others. Patient is here for follow-up recent cellulitis of both lower extremities. Patient states was appropriately treated with antibiotics with complete resolution of symptoms. Since then, states she has been experiencing episodic numbness and tingling in various parts of the body. These last for only a short period of time and include the hands the arms the lower extremities with occasional weakness of the hands. States symptoms are particularly noticeable when she is sitting still or driving. The patient states she was previously on Lexapro for generalized anxiety disorder. States medication was quite effective. As a result, she felt she did not need the medications and went off that. States she did well until she was diagnosed with cellulitis as noted above. Following from that, she states she has been increasingly anxious. Feels she is always tense. States she went on line to readabout her symptoms and has been concerned about possible multiple sclerosis Especially after she was told by another provider that it could indeed be MS. No family history of MS. PMH: Patient Active Problem List Diagnosis ROSE MARY (generalized anxiety disorder) (HRC) History of depression Migraine with aura and without status migrainosus, not intractable S/P primary low transverse Gestational hypertension , Past Surgical History: Procedure Laterality Date SECTION 2019 CHOLECYSTECTOMY DILATION AND CURETTAGE 2018 WISDOM TEETH EXTRACTION Medications: Current Outpatient Medications Medication Sig Dispense Refill cephalexin (KEFLEX) 500 MG capsule Take 1 Capsule (500 mg) by mouth 4 times a day. (Patient not taking: Reported on 08/06/2024) cholecalciferol (VITAMIN D3) 25 MCG (1000 UT) tablet Take 1 Tablet (1,000 Units) by mouth daily. (Patient not taking: Reported on 08/06/2024) escitalopram (LEXAPRO) 10 MG tablet Take 1/2 tablet daily for one week and then increase to 1 tablet daily. 30 Tablet 1 Magnesium 500 MG (Patient not taking: Reported on 08/06/2024) mupirocin (BACTROBAN) 2 % ointment Apply topically two times a day. (Patient not taking: Reported on 08/06/2024) omega-3 fatty acids (FISH OIL) 1000 MG capsule Take 2 Capsules (2,000 mg) by mouth daily. (Patient not taking: Reported on 08/06/2024) Riboflavin (B-2-400 OR) (Patient not taking: Reported on 08/06/2024) rizatriptan (MAXALT) 10 MG tablet 1 tab po at onset of migraine, 1 tab po 2 hrs later if needed. Max 9 pills per month. 9 Tablet 11 sulfamethoxazole-trimethoprim (BACTRIM DS) 800-160 MG tablet Take 1 Tablet by mouth two times a day. (Patient not taking: Reported on 08/06/2024) No current facility-administered medications for this visit. 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 Objective: Physical Exam: BP 120/83 (BP Location: Right Arm, BP Cuff Size: Large) Pulse (!) 109 Wt 188 lb 4.8 oz (85.4 kg) LMP 07/22/2024 (Exact Date) BMI 30.39 kg/m?? General appearance: alert, cooperative, no distress, appears stated age The patient appears anxious. Made good eye contact and answered questions appropriately. Speech wasnormal. No facial weakness noted. Moved all extremities well HEAD: Normocephalic, without obvious abnormality, atraumatic EARS: normal TM's and external ear canals AU THROAT: lips, mucosa, and tongue normal; teeth and gums normal NECK: nontender, no nuchal rigidity, no masses CHEST: Normal chest wall and respirations. Clear to auscultation. HEART: Normal S1 and S2. Regular rhythm. No murmurs, gallops, or rubs. ABDOMEN: abdomen is soft without significant tenderness, masses, organomegaly or guarding NEURO: alert, oriented x3, affect appropriate, no focal neurological deficits, moves all extremities well, no involuntary movements, reflexes at knee and ankle intact EXTREMITY: Extremities warm to touch and pink Assessment & Plan: Generalized anxiety disorder with panic attacks (HRC) - patient's symptoms likely due to increased anxiety - I did discuss this with her extensively. No objective signs of focal neurologic deficits. - I recommend restarting Lexapro. Patient was in agreement with above recommendations. - I did tell the patient that the full effect of the medication may not be realized for several weeks and recommend follow-up in 2 weeks, sooner p.r.n. - escitalopram (LEXAPRO) 10 MG tablet; Take 1/2 tablet daily for one week and then increase to 1 tablet daily. Dispense: 30 Tablet; Refill: 1 History of depression - restart Lexapro If there is no improvement in the episodic numbness and tingling, could consider neurology referral. *This note was created using voice recognition software and may contain some jig and fixture repairer errors* documented in this encounter Nursing Notes * Elvie Coker MA - 08/06/2024 9:40 AM CDT ANDREW signed to receive ER records from [facility]. documented in this encounter Plan of Treatment Upcoming Encounters Date Type Department Care Team (Late st Contact Info) Description 08/24/2024 4:00 PM BINGO USHER Appointment [facility] [address] [place] [address] Swati Murray, LUBRICATION SUPERVISOR, [address] [address] documented as of this encounter Visit Diagnoses Diagnosis Generalized anxiety disorder with panic attacks (HRC)- Primary History of depression Personal history of other mental disorder documented in this encounter Care Teams Brooch And Bracelet Maker Relationship Specialty Start Date End Date Margot Huang PA-C [address] [place] [address] PCP - General Physician Knifer Up 11/13/16 documented as of this encounter
--- OUTSIDE RECORDS SUMMARY | 2024-08-20 10:27 | XMS_ITS | Encounter Summary ---
Author Organization [facility] Address [address] [address] Care Team Providers Care Roll Examiner Name Role Phone Margot Huang PA-C Primary Care Provider [phone] Reason for Referral * Therapies (Routine) - New Request Specialty Diagnoses / Procedures Referred By Sukhi hassan Referred To Contact Diagnoses Low back pain, unspecified back pain laterality, unspecified chronicity, unspecified whether sciatica present Right calf pain Antonia Ya PA-C [address] [place] [address] Referral ID Status Reason Start Date Expiration Date V isits Requested Visits Authorized [id number] New Request 08/11/2024 08/11/2025 1 1 Scheduling Instructions Your clinician has recommended an appointment with [facility]. You can quickly schedule your appointment by signing in to your online account at [email or web address] or through the text message you may have received. You can also make an appointment by calling [phone]. We suggest you call your health insurance company about your coverage and benefits for this appointment. Question Answer Appointment Urgency? Within 1 Week (Urgent) Requested Services Evaluate and treat Reason for Visit General Physical Therapy May use saline for irrigation or cleansing Yes dexamethasone use Yes May check glucose per protocol (see policy link below) or if patient has symptoms? Yes Comments Sciatica pain * Consult/Transfer Care (Routine) - New Request Specialty Diagnoses / Procedures Referred By Contac t Referred To Contact Diagnoses Low back pain, unspecified back pain laterality, unspecified chronicity, unspecified whether sciatica present Right calf pain Antonia Ya PA-C [address] [place] [address] Referral ID Status Reason Start Date Expiration Date V isits Requested Visits Authorized [id number] New Request 08/11/2024 11/09/2024 1 1 Scheduling Instructions Your provider has recommended an appointment with [facility]. You can quickly make your appointment online at [facility]/schedule. You can also call [phone] for help scheduling your appointment. We suggest you call your health insurance company about your coverage and benefits for this appointment. Question Answer Appointment Urgency? Within 1 Week (Urgent) What type of follow up? Routine Reason for visit? UC follow up Comments Primary Care Provider: Margot Huang PA-C * Procedure/Equipment (Routine) - Incomplete Specialty Diagnoses / Procedures Referred By Contac t Referred To Contact Diagnoses Right calf pain Procedures US Venous Right Lower Extrem Doppler Antonia Ya PA-C [address] [place] [address] Referral ID Status Reason Start Date Expiration Date V isits Requested Visits Authorized [id number] Incomplete 08/11/2024 11/10/2025 1 1 Reason for Visit * Reason Comments Back Pain LEG PAIN Encounter Details Date Type Department Care Team (Late st Contact Info) Description 08/11/2024 12:40 PM CDT Office Visit [facility] [address] [place] [phone] Antonia Ya PA-C [address] [place] [address] Low back pain, unspecified back pain laterality, unspecified chronicity, unspecified whether sciatica present; Right calf pain Social History Tobacco Use Types Packs/Day Years Used Date Smoking Tobacco: Former Cigarettes 0.5 10 0 01/21/2012 - 01/20/2022 Smokeless Tobacco: Former Tobacco Cessation:Counseling Given: Not Answered Comments:Pt vapes Alcohol Use Standard Drinks/Week Comments [...] Sign Reading Time Taken Comments Blood Pressure 141/96 08/11/2024 10:19 AM CDT Pulse 115 08/11/2024 10:19 AM CDT Temperature 36.7 ??C (98.1 ??F) 08/11/2024 10:19 AM C DT Respiratory Rate 16 08/11/2024 10:19 AM CDT Oxygen Saturation 98% 08/11/2024 10:19 AM CDT Inhaled Oxygen Concentration - - Weight - - Height - - Body Mass Index - - documented in this encounter Patient Instructions * Patient Instructions* Antonia Ya PA-C - 08/11/2024 12:40 PM CDT Ultrasound without evidence of blood clot. Suspect sciatica. Recommend naproxen for inflammation. Follow up closely with physical therapy. Follow up with primary care provider if symptoms fail to improve. * Attachments The following attachments cannot be sent through Care Everywhere. * Sciatica (Welsh) documented in this encounter Progress Notes * Antonia Ya PA-C - 08/11/2024 12:40 PM CDT Patient ID Kacye Hines 1990 Chief Complaint Patient presents with Back Pain LEG PAIN Nurse Note Triage: Pt c/o right calf pain and tightness. Right 5th toe feels like it's curling. Low back pain. Feels like she's retaining urine. Treated twice this month for cellulitis in both right and left upper thighs. Patient requests an excuse letter for work/school: Yes SUBJECTIVE: 33 y.o. female presents with right calf tightness. Patient reports ongoing low back pain, more so over the right buttocks and wonders if symptoms are from sciatica. She denies history of sciatica in the past. Reports she has been treated twice this month for cellulitis in bilateral thighs. Redness has completely resolved. Denies recent trauma. She does not take estrogen. Denies recent travel or surgery. No history of DVT/PE. Patient also feels like she is retaining urine noting she typically goes to the bathroom every 2 hours during the day, though over the last few days she was only went 5 times a day. She denies dysuria, hematuria, or other urinary symptoms. Past Medical/Surgical History, Medications, Allergies, and Family/Social History all been reviewed in Epic. Social History Tobacco Use Smoking status: Former Current packs/day: 0.00 Average packs/day: 0.5 packs/day for 10.0 years (5.0 ttl pk-yrs) Types: Cigarettes Start date: 01/21/2012 Quit date: 01/20/2022 Years since quittin.5 Smokeless tobacco: Former Tobacco comments: Pt vapes Substance Use Topics Alcohol use: Not Currently Comment: barely OBJECTIVE: Patient Vitals for the past 24 hrs: BP Temp Temp src Pulse Resp SpO2 08/11/24 1019 (!) 141/96 36.7 ??C (98.1 ??F) Oral (!) 115 16 98 % Physical Exam: General: Alert, cooperative. Head: Scalp is atraumatic. Neck: Normal range of motion. CV: Brisk capillary refill to the distal extremities, 2+ DP pulses bilaterally. Resp: Non-labored, no retractions or accessory muscle use. GI: Abdomen is soft, no distension, no tenderness. MS: Normal range of motion. No midline cervical, thoracic, or lumbar tenderness, step-off, or crepitus. Tenderness to the right sciatic notch . No spinal erythema or rash. No calf tenderness or swelling. Skin: Warm and dry. No rash. Neuro: GCS 15; 5/5 strength throughout the bilateral lower extremities (hip flexion/extension, kneeflexion/extension, DF/PF, EHL/FHL). Sensation intact to light touch throughout L2-S1 distributions to the lower extremities. normal gait Psych: Awake. Alert. Appropriate interactions. Laboratory: Results for orders placed or performed in visit on 08/11/24 Urinalysis Routine, Micro/Culture if Pos: Clean Catch Specimen: Clean Catch; Urine Result Value Ref Range Urine Culture Comment Urinalysis results do not meet criteria for urine culture reflex. Urine Color Yellow Urine Clarity Clear Clear Specific [place], Urine >=1.030 (A) 1.005 - 1.030 PH Urine 5.5 5.0 - 8.0 Protein, Urine Qual (mg/dL) Negative Neg/Trace Glucose Urine Qual (mg/dL) Negative Negative Ketones, Urine (mg/dL) 15 (A) Negative Urobilinogen, Urine (EU/dL) 0.2 <2.0 Bilirubin Urine Negative Negative Blood, Urine Negative Neg/Trace Nitrite Urine Negative Negative Leukocyte Est. Trace (A) Negative Urine Source Clean Catch Urine Microscopic Evaluation: Clean Catch Specimen: Clean Catch; Urine Result Value Ref Range Red Blood Cells 0-3 0 - 3 /HPF White Blood Cells 6-9 (A) 0 - 5 /HPF Bacteria Moderate (A) None Seen /HPF Squamous Epithelial Cells Moderate (A) None Seen, Occasional, Few /HPF Mucus Present (A) None Seen /HPF Imaging: US Venous Right Lower Extrem Doppler Result Date: 08/11/2024 COMPARISON: None. CLINICAL HISTORY: right calf pain and tightness FINDINGS: The venous system of the right lower extremity was visualized using color-flow Doppler technique. The common femoral, proximal deep femoral, femoral, popliteal, and visualized portions of the posterior tibial and peroneal veins show normal compressibility, color flow, and response to augmentation. The great saphenous veincompresses normally. MORA'S CYST: No No evidence of deep venous thrombosis. Small calf vein thrombosis cannot be completely excluded by this technique. ASSESSMENT: 33 y.o. female presented with right calf pain. She also reports ongoing low back pain including right buttocks. On exam, she has reproducible tenderness over sciatic notch raising suspicion for sciatica causing the right lower leg symptoms. We will treat with naproxen and recommended following up with physical therapy or chiropractor. Activity as tolerated. Given the right calf pain, ultrasound completed without evidence of DVT. Patient was reassured by this. Patient had recent cellulitis to bilateral thighs and admits to having increased anxiety since these medical issues. She saw her primary last week he was started on Lexapro and she is hopeful this will help alleviate some of her health anxiety. She is reporting urinary retention noting she typically goes every 2 hours but has been going less often the last few days, UA without clear sign of infection, I suspect minimal WBCs secondary to contamination. Urine culture sent and if positive, antibiotics will need to be started. I do not think the urinary symptoms suggest acute cauda equina syndrome and no indication at this time for emergent MRI imaging. She admits that she has been hyper focused on her healthy and urinary symptoms. If urine symptoms persist she should follow up with her primary care provider. Seek emergent medical care if they seemed to be worsening. Patient and friend at bedside agree with this plan Diagnosis: 1. Low back pain, unspecified back pain laterality, unspecified chronicity, unspecified whether sciatica present 2. Right calf pain Medications Prescribed this Visit Disp Refills Start End naproxen (NAPROSYN) 500 MG tablet 14 Tablet 0 08/11/2024 08/18/2024 Take 1 Tablet (500 mg) by mouth two times daily as needed for Pain for up to 7 days. Oral documented in this encounter Nursing Notes * Jayant Zaragoza, RN - 08/11/2024 12:40 PM CDT Pt c/o right calf pain and tightness. Right 5th toe feels like it's curling. Low back pain. Feels like she's retaining urine. Treated twice this month for cellulitis in both right and left upper thighs. Patient requests an excuse letter for work/school: Yes documented in this encounter Plan of Treatment Upcoming Encounters Date Type Department Care Team (Late st Contact Info) Description 08/24/2024 4:00 PM BONDING MACHINE SETTER Appointment [facility] [address] [place] [address] [place] [address] Swati Murray MSW, ASSEMBLER PRODUCTION LINE [address] [place] [address] Scheduled Referrals Name Type Priority Associated Diagnoses Orde r Schedule Primary Care Follow-Up Referral Routine Low back pain, unspecified back pain laterality, unspecified chronicity, unspecified whether sciatica present Right calf pain Ordered: 08/11/2024 Physical Therapy Referral Routine Low back pain, unspecified back pain laterality, unspecified chronicity, unspecified whether sciatica present Right calf pain Ordered: 08/11/2024 documented as of this encounter Procedures Procedure Name Priority Date/Time Associated Diagnosis Comments URINE CULTURE Routine 08/11/2024 10:18 AM CDT Low back pain, unspecified back pain laterality, unspecified chronicity, unspecified whether sciatica present URINALYSIS ROUTINE, MICRO/CULTURE IF POS STAT 08/11/2024 10:18 AM CDT Low back pain, unspecified back pain laterality, unspecified chronicity, unspecified whether sciatica present UA MICRO STAT 08/11/2024 10:18 AM CDT Low back pain, unspecified back pain laterality, unspecified chronicity, unspecified whether sciatica present documented in this encounter Results * US [...] No Procedure Note Ritesh Nogueira MD - 10/22/2024 COMPARISON: None. CLINICAL HISTORY: right calf pain [...] excluded by this technique. Antonia Ya PA-C [facility] * (ABNORMAL) Urine Culture - Collect in Lab (08/11/2024 10:18 AM CDT) Pathologist [facility] Urine Culture Growth(A) 08/12/2024 10:20 PM CDT [facility] Urine Culture <10,000 CFU/mL Mixed Bacterial Growth 08/12/2024 10:20 PM [facility] Comment: Mixed Bacterial Growth indicates the specimen is likely contaminated at collection with urogenital and/or fecal satinder. The presence of organisms at <10,000 cfu/ml in culture, UTI unlikely. Urine URINE SPECIMEN COLLECTION, CLEAN CATCH / Unknown Non-blood Collection / Unknown 08/11/2024 10:18 AM CDT 08/11/2024 10:35 AM CDT Antonia Ya PA-C LAB_[address] [place] [address], [facility] * (ABNORMAL) Urine Microscopic Evaluation: Clean Catch (08/11/2024 10:18 AM CDT) Red Blood Cells 0-3 0 - 3 /HPF 10:54 AM CDT [facility] White Blood Cells 6-9(A) 0 - 5 /HPF 08/11/2024 10:54 AM CDT [facility] Bacteria Moderate(A ) None Seen /HPF 08/11/2024 10:54 AM CDT [facility] Squamous Epithelial Cells Moderate(A ) None Seen, Occasional , Few /HPF 08/11/2024 10:54 AM CDT [facility] Mucus Present(A) None Seen /HPF 08/11/2024 10:54 AM [facility] Urine URINE SPECIMEN COLLECTION, CLEAN CATCH / Unknown Non-blood Collection / Unknown 08/11/2024 10:18 AM CDT 08/11/2024 10:35 AM CDT Laurent Grossman [facility] LAB[facility] [facility] [address] [place] [address] * (ABNORMAL) Urinalysis Routine, Micro/Culture if Pos: Clean Catch (08/11/2024 10:18 AM CDT) Urine Culture Comment Urinalysis results do not meet criteria for urine culture reflex. 08/11/2024 10:54 AM [facility] Urine Color Yellow 08/11/2024 10:54 AM [facility] Urine Clarity Clear Clear 08/11/2024 10:54 AM [facility] Specific [place], Urine >=1.030(A) 1.005 - 1.030 08/11/2024 10:54 AM [facility] PH Urine 5.5 5.0 - 8.0 08/11/2024 10:54 AM [facility] Protein, Urine Qual (mg/dL) Negative Neg/Trace 08/11/2024 10:54 AM [facility] Glucose Urine Qual (mg/dL) Negative Negative 08/11/2024 10:54 AM [facility] Ketones, Urine (mg/dL) 15(A) Negative 08/11/2024 10:54 AM [facility] Urobilinogen, Urine (EU/dL) 0.2 <2.0 08/11/2024 10:54 AM [facility] Bilirubin Urine Negative Negative 08/11/2024 10:54 AM [facility] Blood, Urine Negative Neg/Trace 08/11/2024 10:54 AM [facility] Nitrite Urine Negative Negative 08/11/2024 10:54 AM [facility] Leukocyte Est. Trace(A) Negative 08/11/2024 10:54 AM [facility] Urine Source Clean Catch 08/11/2024 10:54 AM CDT [facility] Urine URINE SPECIMEN COLLECTION, CLEAN CATCH / Unknown Non-blood Collection / Unknown 08/11/2024 10:18 AM CDT 08/11/2024 10:35 AM CDT Laurent Martinez Chauncey [facility] [address] [place] [address], [facility] documented in this encounter Visit Diagnoses Diagnosis Low back pain, unspecified back pain laterality, unspecified chronicity, unspecified whether sciatica present Right calf pain Right calf pain documented in this encounter Care Teams Roll Examiner Relationship Specialty Start Date End Date Margot Huang PA-C [address] [place] [address] PCP - General Physician County Tax Assessor 11/13/16 documented as of this encounter
--- OUTSIDE RECORDS SUMMARY | 2024-08-20 10:27 | XMS_ITS | Encounter Summary ---
Author Organization [facility] Address [address] [address] Care Team Providers Care Tool Planner Name Role Phone Margot Huang PA-C Primary Care Provider [phone] Reason for Visit * Reason Comments Follow-up, NOS Entered automaticall y based on patient selection in [facility]. Encounter Details Date Type Department Care Team (Late Contact Info) Description 07/28/2024 4:30 PM CDT E-Visit [facility] [address] [facility] [place] [address] Steve Stoll PA-C [address] [place] [address] Chief Comp: Follow-up, NOS Social History Tobacco Use Types Packs/Day Years [...] Department Care Team (Late Contact Info) Description 08/24/2024 4:00 PM BREASTER Appointment [facility] [address] [place] [address] Swati Murray, BATTERY RECHARGER, [facility] [address] [place] [address] documented as of this encounter Visit Diagnoses Not on filedocumented in this encounter Care Teams Tool Planner Relationship Specialty Start Date End Date Margot Huang PA-C [address] [place], [place] [phone] PCP - General Physician Senior Peoplesoft Developer 11/13/16 documented as of this encounter
--- OUTSIDE RECORDS SUMMARY | 2024-08-20 10:27 | XMS_ITS | Encounter Summary ---
Author Organization [facility] Address [address], [place] [address] Care Team Providers Care Coding Validator Name Role Phone Margot Huang PA-C Primary Care Provider [phone] Encounter Details Date Type Department Care Team (Late Contact Info) Description 10/15/2017 Correspondence External to External, [place] [address] NOTICE OF NON COVERED SERVICE Social History [...] (Late Contact Info) Description 08/24/2024 4:00 PM GUIDE FOREIGN TOUR Appointment [facility] [address] [place] [phone] Swati Murray, TELEVISION NEWS REPORTER, BREAKER UP MACHINE OPERATOR [address] [place] [address] documented as of this encounter Visit Diagnoses Not on filedocumented in this encounter Additional Health Concerns Infection Onset Date Last Indicated Resolved Time R/O COVID19 05/20/2020 05/20/2020 05/27/2020 3:18 AM CDT documented as of this encounter Care Teams Coding Validator Relationship Specialty Start Date End Date Margot Huang PA-C [address] [place] [address] PCP - General Physician Night Worker 11/13/16 documented as of this encounter
--- OUTSIDE RECORDS SUMMARY | 2024-08-20 10:27 | XMS_ITS | Encounter Summary ---
Author Organization [employer] Address [address] [address] Care Team Providers Care Clinical Nursing Instructor Name Role Phone Margot Huang PA-C Primary Care Provider [phone] Reason for Visit * Reason Comments QUESTIONS, GENERAL Entered automaticall y based on [facility] Encounter Details Date Type Department Care Team (Late Contact Info) Description 08/17/2024 3:30 PM CDT E-Visit [place] [address] [facility] [address] [place] [phone] Jim Esparza PA-C [address] [place] [address] Chief Comp: QUESTIONS, GENERAL Social History Tobacco Use Types Packs/Day Years [...] Upcoming Encounters Date Type Department Care Team ([facility] Contact Info) Description 08/24/2024 4:00 PM CARPENTER INSPECTOR Appointment [facility] [address] [place] [address] Swati Murray, ENTREPRENEURIAL FINANCE PROFESSOR, [facility] [address] [place] [address] documented as of this encounter Visit Diagnoses Not on filedocumented in this encounter Care Teams Clinical Nursing Instructor Relationship Specialty Start Date End Date Margot Huang PA-C [address] [place] [address] PCP - General Physician Marshmallow Maker 11/13/16 documented as of this encounter
--- OUTSIDE RECORDS SUMMARY | 2024-08-20 10:27 | XMS_ITS | Encounter Summary ---
Author Organization [employer] Address [address] [address] Care Team Providers Care Bi Analyst Name Role Phone Margot Huang PA-C Primary Care Provider [phone] Reason for Visit * Reason Comments Video Visit HEADACHE,MIGRAINE Encounter Details Date Type Department Care Team (Late st Contact Info) Description 05/22/2024 7:40 AM CDT Telemedicine [address] [address] Antonia Edmond, BRANT, ROUTE SALES REPRESENTATIVE [address] [place] [address] [phone] Intractable migraine with aura without status migrainosus [...] st Contact Info) Description 08/24/2024 4:00 PM UNDERCOVER COP Appointment [facility] [address] [place] [address] [phone] Swati Murray, PACK MULE WORKER, ELECTRICIAN SOUND [address] [place] [address] documented as of this encounter Visit Diagnoses Diagnosis Intractable migraine with aura without status migrainosus- Primary Migraine with aura, with intractable migraine, so stated, without mention of status migrainosus documented in this encounter Care Teams Bi Analyst Relationship Specialty Start Date End Date Margot Huang, PADMINI [address] [place] [address] PCP - General Physician Climatology Professor 11/13/16 documented as of this encounter
--- OUTSIDE RECORDS SUMMARY | 2024-08-20 10:27 | XMS_ITS | Encounter Summary ---
Author Organization [facility] Address [address] [address] Care Team Providers Care Calender Worker Helper Name Role Phone Margot Huang PA-C Primary Care Provider [phone] Encounter Details Date Type Department Care Team (Late Contact Info) Description 11/27/2017 Consent for Procedure/Treatme nt [facility] INFORMED CONSENT RECORD Social History Tobacco [...] (Late Contact Info) Description 08/24/2024 4:00 PM LPN Appointment [facility] [address] [place] [address] [phone] Swati Murray, LITIGATION SERVICES MANAGER, BUS PERSON DISHWASHER [address] [place], [place] [phone] documented as of this encounter Visit Diagnoses Not on filedocumented in this encounter Additional Health Concerns Infection Onset Date Last Indicated Resolved Time R/O COVID19 05/20/2020 05/20/2020 05/27/2020 3:18 AM CDT documented as of this encounter Care Teams Calender Worker Helper Relationship Specialty Start Date End Date Margot Huang PA-C [address] [place] [address] PCP - General Physician Stud Beef Cattle Farmer 11/13/16 documented as of this encounter
--- OUTSIDE RECORDS SUMMARY | 2024-08-20 10:27 | XMS_ITS | Clinical Summary ---
Author Organization [facility] Address [address], [place] [address] Care Team Providers Care Canine Enforcement Officer Name Role Phone Margot Huang PA-C Primary Care Provider [phone] Source Comments You are receiving this document as you are listed as the primary care provider,follow-up provider, or the patient has been referred to you for consultation.This is in compliance with the Medicare and[facility] Hospitalca[facility] EHR Incentive Program,which states Providers who transition their patient to another setting of careor provider of care or refers their patient to another provider of care shouldprovide summary care record for each transition of care or referral. [employer] Allergies Active Allergy Reactions Criticality Noted Date Comments Sulfa Antibiotics Hives High 10/26/2015 Medications Medication Sig Dispensed Refills Start Date End Date Status escitalopram oxalate (LEXAPRO) 20 MG tabletIndication s:Anxiety (HRC) Take 1 Tablet (20 mg) by mouth daily. 30 Tablet 3 4 08/13/20 25 Active predniSONE (DELTASONE) 20 MG tabletIndication s:Radiculopathy of lumbar region Take 2 Tablets (40 mg) by mouth daily. 14 Tablet 4 Active Additional Information Patient not taking.Reported on 08/19/2024 LORazepam (ATIVAN) 0.5 MG tabletIndication s:Anxiety (HRC) Take 1 Tablet (0.5 mg) by mouth every 6 hours as needed for Anxiety. 15 Tablet 4 Active rizatriptan (MAXALT) 10 MG tabletIndication s:Intractable migraine with aura without status migrainosus 1 tab po at onset of migraine, 1 tab po 2 hrs later if needed. Max 9 pills per month. 9 Tablet 11 4 Active hydrOXYzine HCl (ATARAX) 25 MG tabletIndication s:Anxiety (HRC) Take 1 Tablet (25 mg) by mouth every 6 hours as needed. 30 Tablet 1 4 Active atenolol (TENORMIN) 25 MG tabletIndication s:Intractable migraine with aura without status migrainosus,Anxi ety (HRC) Take 0.5 Tablets (12.5 mg) by mouth daily. 45 Tablet 3 4 08/19/20 25 Active Magnesium 500 MG 08/13/20 Discontinued(*Re solved Condition) Riboflavin (B-2-400 OR) 08/13/20 Discontinued(*Pa tient decision or formulary issue) cholecalciferol (VITAMIN D3) 25 MCG (1000 UT) tablet Take 1 Tablet (1,000 Units) by mouth daily. 08/13/20 Discontinued(*Re solved Condition) omega-3 fatty acids (FISH OIL) 1000 MG capsule Take 2 Capsules (2,000 mg) by mouth daily. 08/13/20 Discontinued(*Pa tient decision or formulary issue) rizatriptan (MAXALT) 10 MG tabletIndication s:Intractable migraine with aura without status migrainosus 1 tab po at onset of migraine, 1 tab po 2 hrs later if needed. Max 9 pills per month. 9 Tablet 11 4 08/13/20 24 Discontinued(*Pa tient decision or formulary issue) methylPREDNISolo ne (MEDROL 21 TABLET DOSEPACK) 4 MG tabletIndication s:Intractable migraine with aura without status migrainosus Follow package directions 21 Tablet 4 07/22/20 Discontinued(*Re solved Condition) cephalexin (KEFLEX) 500 MG capsule Take 1 Capsule (500 mg) by mouth 4 times a day. 4 08/13/20 24 Discontinued(*Re solved Condition) mupirocin (BACTROBAN) 2 % ointment Apply topically two times a day. 4 08/13/20 24 Discontinued(*Re solved Condition) sulfamethoxazole -trimethoprim (BACTRIM DS) 800-160 MG tablet Take 1 Tablet by mouth two times a day. 4 08/13/20 Discontinued(*Pa tieganga decision or formulary issue) escitalopram (LEXAPRO) 10 MG tabletIndication s:Generalized anxiety disorder with panic attacks (HRC) Take 1/2 tablet daily for one week and then increase to 1 tablet daily. 30 Tablet 1 4 08/13/20 Discontinued naproxen (NAPROSYN) 500 MG tablet Take 1 Tablet (500 mg) by mouth two times daily as needed for Pain for up to 7 days. 14 Tablet 4 08/18/20 24 propranolol (INDERAL) 20 MG tabletIndication s:Anxiety (HRC) 20-40mg twice daily 120 Tablet 3 4 08/19/20 24 Discontinued Active Problems Problem Noted Date Diagnosed Date [...] Encounters Date Type Department Care Team Description 08/19/2024 2:30 PM CDT Office Visit [facility] [address] [place] [address] Rosa Maria Phillips MD Anxiety (HRC) (Primary Dx); Intractable migraine with aura without status migrainosus 08/17/2024 3:30 PM CDT E-Visit [place] [address] [facility] [address] [place] [phone] Jim Esparza PA-C Chief Comp: QUESTIONS, GENERAL 08/13/2024 9:00 AM CDT Office Visit [id number] [place] [phone] Jim Esparza PA-C Anxiety (HRC) (Primary Dx); Radiculopathy of lumbar region; Sacroiliitis (HRC) 08/11/2024 1:00 PM CDT Ancillary Procedure [facility] [address] [place] [phone] nAtonia Ya PA-C Right calf pain 08/11/2024 12:40 PM CDT Office Visit [place] [facility] [address] [facility] [address] [place] [phone] Antonia Ya PA-C Low back pain, unspecified back pain laterality, unspecified chronicity, unspecified whether sciatica present; Right calf pain 08/06/2024 9:40 AM CDT Office Visit [facility] [address] [place] [address] Robert Valdez, [facility] Generalized anxiety disorder with panic attacks (HRC) (Primary Dx); History of depression 07/28/2024 4:30 PM CDT E-Visit [facility] [address] [place] [address] Steve Stoll PA-C Chief Comp: Follow-up, NOS 07/23/2024 12:20 PM CDT Ancillary Procedure [facility] [address] Radiology [address] [place] [phone] Steve Stoll PA-C Right foot pain 07/23/2024 7:30 AM CDT Telemedicine [facility] [address] [place] [address] Steve Stoll PA-C Right foot pain (Primary Dx); Cellulitis of right lower extremity 07/15/2024 Nurse Triage [facility] [address] [place] [address] Leobardo Lloyd CELLULITIS 05/22/2024 7:40 AM CDT Telemedicine [address] [address] Antonia Edmond, ANALOG CIRCUIT DESIGNER, WHIPPED TOPPING MIXER Intractable migraine with aura without status migrainosus [...] Pulse 89 08/19/2024 2:30 PM CDT Temperature 36.7 ??C (98.1 ??F) 08/11/2024 1 0:19 AM CDT Respiratory Rate 16 08/13/2024 8:55 AM CDT Oxygen Saturation 98% 08/11/2024 10: 19 AM CDT Inhaled Oxygen Concentration - - Weight 82 kg (180 lb 12.8 oz) 08/19/2024 2:21 PM CDT Height 167.6 cm (5' 6) 08/13/2024 8:55 AM CDT Body Mass Index 29.18 08/13/2024 8:55 AM CDT Plan of Treatment Upcoming Encounters Date Type Department Care Team (Late st Contact Info) Description 08/24/2024 4:00 PM MOBILE LOUNGE DRIVER OR OPERATOR Appointment [address] [address] Swati Murray, INDUSTRIAL STAFF NURSE, VOIP TECHNICIAN [address] [place] [address] Health Maintenance Due Date Last Done Comments [...] patient's age to complete this topic RSV Aged Out No longer eligi ble [...] 08/11/2024 12:03 PM CDT Right calf pain URINE CULTURE Routine 08/11/2024 10:18 AM CDT Low back pain, unspecified back pain laterality, unspecified chronicity, unspecified whether sciatica present UA MICRO STAT 08/11/2024 10:18 AM CDT Low back pain, unspecified back pain laterality, unspecified chronicity, unspecified whether sciatica present URINALYSIS ROUTINE, MICRO/CULTURE IF POS STAT 08/11/2024 10:18 AM CDT Low back pain, unspecified back pain laterality, unspecified chronicity, unspecified whether sciatica present XR FOOT RT 3+ VIEWS Routine 07/23/2024 1 2:30 PM CDT Right foot pain HIV 1/2 AG/AB 4TH GEN Routine 10/02/2017 1:40 PM MOBILE LOUNGE DRIVER OR OPERATOR Encounter for supervision of normal first in first trimester PAP TEST, ROUTINE Routine 08/21/2017 11: 14 AM CDT Screening for malignant neoplasm of cervix from Last 3 Months or Most Recently Relevant to Health Maintenance Results * US Venous Right Lower Extrem [...] excluded by this technique. Antonia Ya PA-C [facility] US * (ABNORMAL) Urine Culture - Collect in Lab (08/11/2024 10:18 AM CDT) Urine Culture Growth(A) 08/12/2024 10:[address] [facility] Urine Culture <10,000 CFU/mL Mixed Bacterial Growth 08/12/2024 10:20 PM [facility] Comment: Mixed Bacterial Growth indicates the specimen is likely contaminated at collection with urogenital and/or fecal satinder. The presence of organisms at <10,000 cfu/ml in culture, UTI unlikely. Urine URINE SPECIMEN COLLECTION, CLEAN CATCH / Unknown Non-blood Collection / Unknown 08/11/2024 10:18 AM CDT 08/11/2024 10:35 AM CDT Antonia Ya PA-C LAB_[address] [address], [facility] * (ABNORMAL) Urinalysis Routine, Micro/Culture if Pos: Clean Catch (08/11/2024 10:18 AM CDT) Urine Culture Comment Urinalysis results do not meet criteria for urine culture reflex. 08/11/2024 10:54 AM [facility] Urine Color Yellow 08/11/2024 10:54 AM [facility] Urine Clarity Clear Clear 08/11/2024 10:54 AM [facility] Specific [place], Urine >=1.030(A) 1.005 - 1.030 08/11/2024 10:54 AM [facility] PH Urine 5.5 5.0 - 8.0 08/11/2024 10:54 AM [facility] Protein, Urine Qual (mg/dL) Negative Neg/Trace 08/11/2024 10:54 AM [facility] Glucose Urine Qual (mg/dL) Negative Negative 08/11/2024 10:54 AM [facility] Ketones, Urine (mg/dL) 15(A) Negative 08/11/2024 10:54 AM [facility] Urobilinogen, Urine (EU/dL) 0.2 <2.0 08/11/2024 10:54 AM [facility] Bilirubin Urine Negative Negative 08/11/2024 10:54 AM [facility] Blood, Urine Negative Neg/Trace 08/11/2024 10:54 AM [facility] Nitrite Urine Negative Negative 08/11/2024 10:54 AM [facility] Leukocyte Est. Trace(A) Negative 08/11/2024 10:54 AM [facility] Urine Source Clean Catch 08/11/2024 10:54 AM [facility] Urine URINE SPECIMEN COLLECTION, CLEAN CATCH / Unknown Non-blood Collection / Unknown 08/11/2024 10:18 AM CDT 08/11/2024 10:35 AM CDT Laurent CHIU LAB_1 [facility] [address] [place] [address], [facility] * (ABNORMAL) Urine Microscopic Evaluation: Clean Catch (08/11/2024 10:18 AM CDT) Red Blood Cells 0-3 0 - 3 /HPF 10:54 AM CDT [facility] White Blood Cells 6-9(A) 0 - 5 /HPF 08/11/2024 10:54 AM CDT [facility] Bacteria Moderate(A ) None Seen /HPF 08/11/2024 10:54 AM CDT [facility] Squamous Epithelial Cells Moderate(A ) None Seen, Occasional , Few /HPF 08/11/2024 10:54 AM CDT [facility] Mucus Present(A) None Seen /HPF 08/11/2024 10:54 AM CDT [facility] Urine URINE SPECIMEN COLLECTION, CLEAN CATCH / Unknown Non-blood Collection / Unknown 08/11/2024 10:18 AM CDT 08/11/2024 10:35 AM CDT Laurent Grossman [facility] LAB_1 [facility] [address] [place] [address] * XR Foot Rt 3+ Views (07/23/2024 [...] 1/2 Ag/Ab 4th Generation (10/02/2017 1:40 PM MOBILE LOUNGE DRIVER OR OPERATOR) HIV 1/2 AG/AB 4thGEN Negative (Non Reactive) [facility] Comment:HIV-1 p24 Ag and HIV -1/HIV-2 Ab not detected. 10/02/2017 1:40 PM MOBILE LOUNGE DRIVER OR OPERATOR 10/02/2017 1:47 PM MOBILE LOUNGE DRIVER OR OPERATOR Narrative [facility] - 10/02/2017 7:15 PM MOBILE LOUNGE DRIVER OR OPERATOR Performed at [facility], [address] [place] [address] ??[address] Meg Gracia APRN, CNM LAB_1 Performing Organization Address [facility] de Phone Number [facility] [phone] * Pap Test, Routine (08/21/2017 11:14 AM CDT) Cytology, Pap (NOTE) Membership Sales Advisor Cytology Report Patient Name: TURNER TIDWELL Taken: 08/21/2017 Received: 08/21/2017 Reported: 09/02/2017 Physician(s): GENARO JAMIL ?Source of Specimen Pap Test, Routine Cervical/Endocervi cristina: ?Specimen Adequacy ?Satisfactory for evaluation. ??Endocervical component present. ? Final Cytologic Interpretation/Res ult NEGATIVE FOR INTRAEPITHELIAL LESION OR MALIGNANCY (NILM) ?? *Electronically Signed Out By Savanah Thompson CT(ASCP)* SARAH Pack (ASCP) Savanah Tohmpson CT(ASCP) ? Pap Smear History Date of Last Menstrual Period: No LMP recorded ?? Microscopic Description Microscopic examination is performed. [facility] Department of Pathology [address] [place] [phone] [facility] 08/21/2017 11:1 4 AM CDT 08/21/2017 6:30 PM CDT Genaro Jamil MD LAB_1 Performing Organization Address [facility] de Phone Number [facility] [phone] from Last 3 Months or Most Recently Relevant to Health Maintenance Advance Directives * Full Code (Latest Code Status on File) Date Activated Date Inactivated Comments 11/27/2017 8:06 AM 11/27/2017 2:06 PM Care Teams Canine Enforcement Officer Relationship Specialty Start Date End Date Margot Huang PA-C [address] [place] [address] PCP - General Physician Rn Neurology 11/13/16
--- OUTSIDE RECORDS SUMMARY | 2024-08-20 10:27 | XMS_ITS | Encounter Summary ---
Author Organization [employer] Address [address] [place] [address] Care Team Providers Care Sports Broadcaster Name Role Phone Margot Huang PA-C Primary Care Provider [phone] Reason for Visit * Reason Comments CELLULITIS Encounter Details Date Type Department Care Team (Late st Contact Info) Description 07/15/2024 Nurse Triage Careline [address] [place], [place] [phone] Leobardo Lloyd X CELLULITIS Social History Tobacco [...] cellulitis Protocols used: Cellulitis on Antibiotic Follow-up [id number] * Leobardo Lloyd - 07/15/2024 6:06 PM CDT Verified patient identity using three identifiers: Yes Caller's relationship to patient: Self, Do you have a provider/clinic where you are seen for this? STACEY/Dejon/Kari/Colton Are you calling about a /GENETICS NURSE related concern? No Symptoms Describe the reason [...] st Contact Info) Description 08/24/2024 4:00 PM ATTENDANCE SECRETARY Appointment [facility] [address] [place], [place] [phone] Swati Murray MSW, CRIB CLERK [address] [place], [place] [address] documented as of this encounter Visit Diagnoses Not on filedocumented in this encounter Care Teams Sports Broadcaster Relationship Specialty Start Date End Date Margot Huang PA-C [address] [place] [address] PCP - General Physician Kinesiologist 11/13/16 documented as of this encounter
--- OUTSIDE RECORDS SUMMARY | 2024-08-20 10:27 | XMS_ITS | Encounter Summary ---
Author Organization [facility] Address [address] [place] [address] Care Team Providers Care Wood Gluer Name Role Phone Margot Huang PA-C Primary Care Provider [phone] Reason for Visit * Reason Comments CELLULITIS Encounter Details Date Type Department Care Team (Late st Contact Info) Description 07/23/2024 7:30 AM CDT Telemedicine [facility] [address] [place] [address] Steve Stoll PA-C [address] [place] [address] Right foot pain (Primary Dx); Cellulitis of [...] Additionally, you may receive a survey from [facility] through [employer], phone or mail about your visit with [...] out to me via clinic line or [employer] if there is ever anything you need. Nehemiah Stoll PA-C [facility] documented in this encounter Progress Notes * Steve Stoll PA-C - 07/23/2024 7:30 AM CDT Images from the original note were not included. [facility] Nehemiah Stoll PA-C Kacey Hines [address] [...] She states she was recently treated at [facility] urgent care for cellulitis of her right [...] of visit. Nehemiah Stoll PA-C Family Medicine [facility] documented in this encounter Plan of Treatment Upcoming Encounters Date Type Department Care Team (Late st Contact Info) Description 08/24/2024 4:00 PM EMERGENCY DEPARTMENT TECHNICIAN Appointment [facility] [address] [place] [address] Swati Murray MSW, REBAR BENDER [address] [place] [address] documented as of this encounter Visit Diagnoses Diagnosis Right foot pain- Primary Pain in limb Cellulitis of right lower extremity Cellulitis and abscess of leg, except foot documented in this encounter Care Teams Wood Gluer Relationship Specialty Start Date End Date Margot Huang PA-C [address] [place] [address] PCP - General Physician Forest Engineer 11/13/16 documented as of this encounter
--- OUTSIDE RECORDS SUMMARY | 2024-08-20 10:28 | XMS_ITS | Clinical Summary ---
Author Organization [facility] Address [address] [place] [address] Care Team Providers Care Media Center Assistant Name Role Phone Clinic, [facility]ys [facility] Pro vider Allergies Active Allergy Reactions Criticality Noted Date Comments Sulfa Antibiotics Hives 07/28/2009 Medications Vit-Fe Fumarate-FA (PNV PLUS MULTIVITAMIN) 27-1 MG TABS per tablet Take 1 tablet by mouth daily Active omeprazole (PRILOSEC) [address] capsule Take 20 mg by mouth daily Active ferrous sulfate (FEROSUL) 325 (65 Fe) MG tablet Take 325 mg by mouth daily (with breakfast) Active oxyCODONE (ROXICODONE) 5 MG tabletIndicatio ns:S/P primary low transverse Take 1-2 tablets (5-10 [...] grade squamous intraepithelial lesion (LGSIL) 07/28/2009 2014 Overview (2014): 2008 LSIL <21 yrs 2009 ASCUS, Negative [...] School Help Needed Not on file 07/29 Comments No Sex and Gender Information Value Date Recorded Sex Assigned at Not on file Legal Sex Female 4:22 AM EMBROIDERY CUTTER Gender Identity Not on file Sexual Orientation [...] 104.3 kg (230 lb) 11/02/2018 9:30 PM EMBROIDERY CUTTER Height 167.6 cm (5' 6) 11/02/2018 9:30 PM EMBROIDERY CUTTER Body Mass Index 37.12 11/02/2018 9:30 PM EMBROIDERY CUTTER Plan of Treatment Health Maintenance Due Date [...] Antigen Antibody Combo negative Blood specimen (specimen) us Patient Reported LAB - BLOOD ORDERABLES Final Re sult * Hepatitis C antibody (08/18/2014 9:29 AM CDT) Hepatitis C Antibody Negative NEG [facility] Blood specimen (specimen) 08/18/2014 9:29 AM CDT 08/18/2014 9:32 AM CDT us Wiliam SMITHC LAB - BLOOD ORDERABL ES Final Result [facility] [address] * PAP imaged thin layer, screen (08/18/2014 12:00 AM CDT) PAP NIRMALA Zaldivar Report Patient Name: TURNER TIDWELL MR#: [id number] Specimen #: [id number] Collected: 08/18/2014 Received: 08/19/2014 Reported: 08/24/2014 12:44 [...] Vieyra ( ASCP) Processed and screened at [facility] CLINICAL HISTORY: LMP: 08/09/2014 Previous normal pap Date of Last Pap: 04/10/2012 Previous abnormal pap: lgsil, Papanicolaou Test Limitations: ??Cervical cytology is a screening test with limited sensitivity; regular screening is critical for cancer prevention; Pap tests are primarily effective for the diagnosis/preventi on of squamous cell carcinoma, not adenocarcinomas or other cancers. TESTING LAB LOCATION: [address] ??[id number] COLLECTION SITE: Client: ??[facility] Location: CRFP (R) [facility] Cytologic material (specimen) 08/18/2014 08/19/2014 11:48 AM CDT Wiliam Lagunas PA-C LAB - OPTIME CLINICA L SPECIMEN Final Result COPATH from Last 3 Months or Most Recently Relevant to Health Maintenance Care Teams Media Center Assistant Relationship Specialty Start Date End Date Clinic, [facility] [id number] [place] [address] PCP - General 08/09/23
--- OUTSIDE RECORDS SUMMARY | 2024-08-20 10:28 | XMS_ITS | Clinical Summary ---
Author Organization [facility] Address [place], [place] [address] Care Team Providers Care Spike Driver Name Role Phone Gladys [facility]be Primary [facility] [...] mouth 3 times daily if needed. Active Bbbmd-2-LPZ-EPA-Fis h Oil (Fish OiL) 1,000 mg (120 [...] 7 days. 14 Tablet 07/26/2024 08/02/2024 Active Problems Problem Noted Date Diagnosed Date Gallstones 02/03/2024 Encounters Date Type Department Care Team Description 07/26/2024 2:50 PM CDT Office Visit [facility] [address] [facility] [address] [place] [address] Shyann Umana, DIOGENES Derm Problem 07/26/2024 Travel [...] st Contact Info) Description 10/22/2024 10:00 AM MEDICAL IMAGING SPECIALIST Office Visit [facility] [address] [id number] [place] [address] [place] [address] Health Maintenance Due Date Last Done Comments [...] Comments Code Status Discussion: Discussed Care Teams Spike Driver Relationship Specialty Start Date End Date [facility] [address] [place] [address] PCP - General 01/14/24
--- OUTSIDE RECORDS SUMMARY | 2024-08-20 10:28 | XMS_ITS | Referral Summary ---
Author Organization [facility] Address [address] [place] [address] Care Team Providers Care Brand Executive Name Role Phone Clinic, Gladys Jamison [facility] Pro vider Allergies Active Allergy [...] on file Legal Sex Female 4:22 AM PRE SALES SYSTEMS ENGINEER Gender Identity Not on file Sexual Orientation [...] 104.3 kg (230 lb) 11/02/2018 9:30 PM PRE SALES SYSTEMS ENGINEER Height 167.6 cm (5' 6) 11/02/2018 9:30 PM PRE SALES SYSTEMS ENGINEER Body Mass Index 37.12 11/02/2018 9:30 PM PRE SALES SYSTEMS ENGINEER Plan of Treatment Not on file Procedures [...] AM CDT) Hepatitis C Antibody Negative NEG [facility] Blood specimen (specimen) 08/18/2014 9:29 AM CDT 08/18/2014 9:32 AM CDT us Wiliam Lagunas PA-C LAB - BLOOD ORDERABL ES Final Result [facility] [address] * PAP imaged thin layer, screen (08/18/2014 12:00 AM CDT) PAP NIL COPATH Copath Report Patient Name: TURNER TIDWELL MR#: [id number] Specimen #: [id number] Collected: 08/18/2014 Received: 08/19/2014 Reported: 08/24/2014 12:44 [...] Vieyra ( ASCP) Processed and screened at [facility] CLINICAL HISTORY: LMP: 08/09/2014 Previous normal pap Date of Last Pap: 04/10/2012 Previous abnormal pap: lgsil, Papanicolaou Test Limitations: ??Cervical cytology is a screening test with limited sensitivity; regular screening is critical for cancer prevention; Pap tests are primarily effective for the diagnosis/preventi on of squamous cell carcinoma, not adenocarcinomas or other cancers. TESTING LAB LOCATION: [address] ??[address] COLLECTION SITE: Client: ??[facility] Location: CRFP (R) COPATH Cytologic material (specimen) 08/18/2014 08/19/2014 11:48 AM CDT Wiliam Lagunas PA-C LAB - OPTIME CLINICA L SPECIMEN Final Result COPATH from Last 3 Months or Most Recently Relevant to Health Maintenance Care Teams Brand Executive Relationship Specialty Start Date End Date [facility] [address] [place] [address] PCP - General 08/09/23
--- OUTSIDE RECORDS SUMMARY | 2024-08-20 10:28 | XMS_ITS | Encounter Summary ---
Author Organization [facility] Address [address] [place] [address] Care Team Providers Care Telephone Interceptor Operator Name Role Phone Eileen Vaughn PA-C Primary Care Provid er [facility] Primary Care Pro vider Encounter Details Date Type Department Care Team (Late st Contact Info) Description 07/31/2013 [facility] [address] [address] Mirza [facility] Social History Tobacco Use Types Packs/Day Years Used Date Smoking Tobacco: Every Day Cigarettes 0.5 1 Smokeless Tobacco: Never Alcohol Use Standard Drinks/Week Comments No 0 (1 standard drink = 0.6 oz pur e alcohol) Comments No Sex and Gender Information Value Date Recorded Sex Assigned at Not on file Legal Sex Female 4:22 AM CHEF INSTRUCTOR Gender Identity Not on file Sexual Orientation Not on file documented as of this encounter Plan of Treatment Not on file documented as of this encounter Visit Diagnoses Not on filedocumented in this encounter Care Teams Telephone Interceptor Operator Relationship Specialty Start Date End Date Eileen Vaughn PA-C [address] [address] [place] [address] PCP - General Family Practice 12/07/10 08/08/23 [facility] [address] [place] [address] PCP - General 08/09/23 documented as of this encounter
[2024-08-20 10:32] VITALS: BP 120/75; PULSE 55; RESP 14; O2SAT 98
== END 2024-08-20 10:54 | disposition home or self-care (01) ==
PROVIDERS: Emergency Provider Emergency Medicine Emergency Medical Services
DX: F41.9 Anxiety disorder, unspecified (principal)
CPT/HCPCS: 76604; 76705; 93308; 99283; 99284

== ENCOUNTER 2024-08-28 14:56 | Outpatient (CLI) | payer MEDICAID, SELFPAY ==
--- OUTSIDE RECORDS SUMMARY | 2024-09-06 23:01 | XMS_ITS | Encounter Summary ---
Author Organization [facility]ending [facility] to [facility] Address [address] [place] [address] Care Team Providers Care Ag Service Manager Name Role Phone Margot Huang PA-C Primary Care Provider [phone] Encounter Details Date Type Department Care Team (Late Contact Info) Description 08/24/2024 E-Visit [facility] [address] [place] [address] Mychart, [place] [address] Social History Tobacco Use Types Packs/Day Years [...] (Late Contact Info) Description 09/08/2024 4:30 PM WOOD TYPE FINISHER Telemedicine [facility] [address] [place], [place] [address] Rosa Maria Phillips MD [address] [place], [place] [address] documented as of this encounter Visit Diagnoses Not on filedocumented in this encounter Care Teams Ag Service Manager Relationship Specialty Start Date End Date Margot Huang PA-C [address] [place] [address] PCP - General Physician Concessionist 11/13/16 documented as of this encounter
--- OUTSIDE RECORDS SUMMARY | 2024-09-06 23:01 | XMS_ITS | Encounter Summary ---
Author Organization [employer] Address [address] [address] Care Team Providers Care Firer Boiler Name Role Phone Margot Huang PA-C Primary Care Provider [phone] Reason for Visit * Reason Comments QUESTIONS, GENERAL Entered automaticall y based [facility] Encounter Details Date Type Department Care Team ([facility] Contact Info) Description 08/17/2024 3:30 PM CDT E-Visit [facility] [address] [place] [address] Jim Esparza PA-C [address] [place] [address] Chief Comp: QUESTIONS, GENERAL Social History Tobacco [...] Upcoming Encounters Date Type Department Care Team ([facility] Contact Info) Description 09/08/2024 4:30 PM SOFTWARE APPLICATIONS ENGINEER Telemedicine [facility] [address] [place] [address] Rosa Maria Phillips MD [address] [place], [place] [address] documented as of this encounter Visit Diagnoses Not on filedocumented in this encounter Care Teams Firer Boiler Relationship Specialty Start Date End Date Margot Huang PA-C [address] [place] [address] PCP - General Physician X Ray Nurse 11/13/16 documented as of this encounter
--- OUTSIDE RECORDS SUMMARY | 2024-09-06 23:01 | XMS_ITS | Encounter Summary ---
Author Organization [facility] Address [address] [place] [address] Care Team Providers Care Personal Injury Litigation Paralegal Name Role Phone Margot Huang PA-C Primary Care Provider [phone] Reason for Visit * Reason Comments ANXIETY Encounter Details Date Type Department Care Team (Late st Contact Info) Description 08/26/2024 Nurse Triage [facility] [address] [facility] [place] [address] Margot Huang PA-C [address] [place], [place] [phone] ANXIETY Social History Tobacco Use Types Packs/Day [...] Time Provider Department Center 08/26/2024 3:00 PM oRsa Maria Phillips MD PRLK PN PRLK 09/08/2024 4:30 PM Rosa Maria Phillips MD PRLK PN PRLK Reason for Disposition Started on anti-anxiety medication and no relief Protocols used: Anxiety and Panic [id number] BLOCKER documented in this encounter Plan of Treatment Upcoming Encounters Date Type Department Care Team (Late st Contact Info) Description 09/08/2024 4:30 PM LENS BLOCKER [facility] [address] [place] [address] Rosa Maria Phillips MD [address] [place] [address] documented as of this encounter Visit Diagnoses Not on filedocumented in this encounter Care Teams Personal Injury Litigation Paralegal Relationship Specialty Start Date End Date Margot Huang PA-C [address] [place] [address] PCP - General Physician Hardboard Grinder 11/13/16 documented as of this encounter
--- OUTSIDE RECORDS SUMMARY | 2024-09-06 23:01 | XMS_ITS | Encounter Summary ---
Author Organization [employer] Address [address] [place] [address] Care Team Providers Care Channel Development Director Name Role Phone Margot Huang PA-C Primary Care Provider [phone] Encounter Details Date Type Department Care Team (Late Contact Info) Description 08/26/2024 3:30 PM DELI BAKERY CLERK Lab Visit [facility] [address] [place], [place] [id number] Anxiety (HRC); Palpitations Social History Tobacco Use [...] (Late Contact Info) Description 09/08/2024 4:30 PM DELI BAKERY CLERK Telemedicine [facility] [address] [place], [place] [address] Rosa Maria Phillips MD [address] [place] [address] documented as of this encounter Procedures Procedure Name Priority Date/Time Associated Diagnosis Comments CBC AND DIFFERENTIAL PANEL Routine 08/26/2024 3:30 PM DELI BAKERY CLERK Anxiety (HRC) Palpitations COMPLETE BLOOD COUNT-W/DIFF Routine 08/26/2024 3:30 PM DELI BAKERY CLERK Anxiety (HRC) Palpitations TSH, SENSITIVE Routine 08/26/2024 3:30 PM DELI BAKERY CLERK Anxiety (HRC) Palpitations BASIC METABOLIC PANEL Routine 08/26/2024 3:30 PM DELI BAKERY CLERK Anxiety (HRC) Palpitations documented in this encounter Results * Complete Blood Count-W/Diff (08/26/2024 3:30 PM DELI BAKERY CLERK) WBC 6.5 3.5 - 10.5 x10(9)/L 08/26/2024 3:36 PM DELI BAKERY CLERK [facility] RBC 4.95 3.90 - 5.03 x10(12)/L 08/26/2024 3:36 PM DELI BAKERY CLERK [facility] Hemoglobin 14.8 12.0 - 15.5 g/dL 08/26/2024 3:36 PM DELI BAKERY CLERK [facility] HCT 43.5 34.9 - 44.5 % 08/26/2024 3:36 PM DELI BAKERY CLERK [facility] MCV 87.9 80.0 - 100.0 fL 08/26/2024 3:36 PM DELI BAKERY CLERK [facility] MCH 29.9 27.6 - 33.3 pg 08/26/2024 3:36 PM DELI BAKERY CLERK [facility] MCHC 34.0 31.5 - 35.2 g/dL 08/26/2024 3:36 PM DELI BAKERY CLERK [facility] RDW 13.1 11.9 - 15.5 % 08/26/2024 3:36 PM DELI BAKERY CLERK [facility] Platelets 264 150 - 450 x10(9)/L 08/26/2024 3:36 PM DELI BAKERY CLERK [facility] Neutrophil Absolute 4.5 1.7 - 7.0 10(9)/L 08/26/2024 3:36 PM DELI BAKERY CLERK [facility] Lymphocyte Absolute 1.4 1.0 - 4.8 10(9)/L 08/26/2024 3:36 PM DELI BAKERY CLERK [facility] Monocyte Absolute 0.5 0.2 - 0.9 10(9)/L 08/26/2024 3:36 PM DELI BAKERY CLERK [facility] Eosinophil Absolute 0.0 0.0 - 0.5 10(9)/L 08/26/2024 3:36 PM DELI BAKERY CLERK [facility] Basophil Absolute 0.0 0.0 - 0.3 10(9)/L 08/26/2024 3:36 PM DELI BAKERY CLERK [facility] Blood Venipuncture / Unknown 08/26/2024 3:30 PM DELI BAKERY CLERK 08/26/2024 3:30 PM DELI BAKERY CLERK Rosa Maria Phillips MD LAB_1 [facility] [address] [place] [address] * TSH (08/26/2024 3:30 PM DELI BAKERY CLERK) Pathologist [facility] TSH, Sensitive 1.10 0.30 - 4.50 uIU/mL 08/26/2024 9:42 PM DELI BAKERY CLERK [facility] Blood Venipuncture / Unknown 08/26/2024 3:30 PM DELI BAKERY CLERK 08/26/2024 3:30 PM DELI BAKERY CLERK Rosa Maria Phillips MD [facility] [address] * (ABNORMAL) Basic Metabolic Panel (08/26/2024 3:30 PM DELI BAKERY CLERK) Pathologist [facility] Sodium 140 136 - 145 mmol/L 08/27/2024 10:07 AM [facility] Potassium 3.6 3.5 - 5.1 mmol/L 08/27/2024 10:07 AM [facility] Chloride 110(H) 98 - 109 mmol/L 08/27/2024 10:07 AM [facility] CO2 21 20 - 29 mmol/L 08/27/2024 10:07 AM [facility] Anion Gap 9 6 - 16 mmol/L 08/27/2024 10:07 AM [facility] Calcium 9.6 8.4 - 10.4 mg/dL 08/27/2024 10:07 AM [facility] BUN 9 7 - 26 mg/dL 08/27/2024 10:07 AM [facility] Creatinine 0.72 0.55 - 1.02 mg/dL 08/27/2024 10:07 AM [facility] Glucose 102(H) 70 - 100 mg/dL 08/27/2024 10:07 AM [facility] Comment:The given reference range is for the fasting state. Non-fasting reference range for glucose is 70 - 180 mg/dL. GFR, Estimated >60 >60 mL/min/1.7 3m2 08/27/2024 10:07 AM [facility] Hours Fasting 0.0 8 - 12 Hours 08/27/2024 10:07 AM [facility] Blood Venipuncture / Unknown 08/26/2024 3:30 PM DELI BAKERY CLERK 08/26/2024 3:30 PM DELI BAKERY CLERK Rosa Maria Phillips MD LAB_1 [facility] [address] [place] [address] documented in this encounter Visit Diagnoses Diagnosis Anxiety (HRC) Anxiety state, unspecified Palpitations documented in this encounter Care Teams Channel Development Director Relationship Specialty Start Date End Date Margot Huang PA-C [address] [place] [address] PCP - General Physician Sign Artist 11/13/16 documented as of this encounter
--- OUTSIDE RECORDS SUMMARY | 2024-09-06 23:01 | XMS_ITS | Encounter Summary ---
Author Organization [employer] Address [address] [place] [address] Care Team Providers Care Early Morning Babysitter Name Role Phone Margot Huang PA-C Primary Care Provider [phone] Reason for Visit * Reason Comments ANXIETY Wk 3 lexaproProgress ively worse. Atavan only helping for 2 hr.sHx health anxiety DIZZINESS All the time - BREATHING PROBLEM fast Encounter Details Date Type Department Care Team (Late st Contact Info) Description 08/26/2024 3:00 PM SURVIVAL EQUIPMENT REPAIRER [facility] [address] [place], [place] [address] Rosa Maria Phillips MD [address] [place], [place] [address] Anxiety (HRC) (Primary Dx); Palpitations Social History [...] Comments Blood Pressure 128/84 08/26/2024 3:02 PM SURVIVAL EQUIPMENT REPAIRER Pulse 109 08/26/2024 3:02 PM SURVIVAL EQUIPMENT REPAIRER Temperature - - Respiratory Rate - - Oxygen Saturation - - Inhaled Oxygen Concentration - - Weight 80.3 kg (177 lb) 08/26/2024 3:02 PM SURVIVAL EQUIPMENT REPAIRER Height - - Body Mass Index 28.57 [...] List Diagnosis ROSE MARY (generalized anxiety disorder) ([facility]) History of depression Migraine with aura and without status migrainosus, not intractable S/P primary low transverse Gestational hypertension PAST MEDICAL HISTORY : Past Medical History: Diagnosis Date Bipolar affect, depressed ([facility]) Bipolar affective disorder ([facility]) 07/28/2009 Cellulitis of right lower extremity 07/08/2024 Treated at outside urgent care - treated with oral Keflex QID x 10 days Depression ([facility]) Posttraumatic stress disorder ([facility]) 07/28/2009 Right foot pain 07/23/2024 [...] level: Not on file Occupational History 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 [address] Rosa Maria Phillips MD [address] [place] [address] documented as of this encounter Results * TSH (08/26/2024 3:30 PM SURVIVAL EQUIPMENT REPAIRER) TSH, Sensitive 1.10 0.30 - 4.50 uIU/mL 08/26/2024 9:42 PM SURVIVAL EQUIPMENT REPAIRER [facility] Blood Venipuncture / Unknown 08/26/2024 3:30 PM SURVIVAL EQUIPMENT REPAIRER 08/26/2024 3:30 PM SURVIVAL EQUIPMENT REPAIRER Rosa Maria Phillips MD [facility] [address] [place] [address], [facility] * (ABNORMAL) Basic Metabolic Panel (08/26/2024 3:30 PM SURVIVAL EQUIPMENT REPAIRER) Pathologist [facility] Sodium 140 136 - 145 mmol/L 08/27/2024 10:07 AM [facility] Potassium 3.6 3.5 - 5.1 mmol/L 08/27/2024 10:07 AM [facility] Chloride 110(H) 98 - 109 mmol/L 08/27/2024 10:07 AM [facility] CO2 21 20 - 29 mmol/L 08/27/2024 10:07 AM [facility] Anion Gap 9 6 - 16 mmol/L 08/27/2024 10:07 AM [facility] Calcium 9.6 8.4 - 10.4 mg/dL 08/27/2024 10:07 AM [facility] BUN 9 7 - 26 mg/dL 08/27/2024 10:07 AM [facility] Creatinine 0.72 0.55 - 1.02 mg/dL 08/27/2024 10:07 AM [facility] Glucose 102(H) 70 - 100 mg/dL 08/27/2024 10:07 AM [facility] Comment:The given reference range is for the fasting state. Non-fasting reference range for glucose is 70 - 180 mg/dL. GFR, Estimated >60 >60 mL/min/1.7 3m2 08/27/2024 10:07 AM SURVIVAL EQUIPMENT REPAIRER [facility] Hours Fasting 0.0 8 - 12 Hours 08/27/2024 10:07 AM SURVIVAL EQUIPMENT REPAIRER [facility] Blood Venipuncture / Unknown 08/26/2024 3:30 PM SURVIVAL EQUIPMENT REPAIRER 08/26/2024 3:30 PM SURVIVAL EQUIPMENT REPAIRER Rosa Maria Phillips MD LAB_1 Performing Organization Address City/State/[facility] Co de Phone Number [facility] [address] [place] [address] documented in this encounter Visit Diagnoses Diagnosis Anxiety (HRC)- Primary Anxiety state, unspecified Palpitations documented in this encounter Care Teams Early Morning Babysitter Relationship Specialty Start Date End Date Margot Huang PA-C [address] [place] [address] PCP - General Physician Event Specialist Product Demonstrator 11/13/16 documented as of this encounter
--- OUTSIDE RECORDS SUMMARY | 2024-09-06 23:01 | XMS_ITS | Encounter Summary ---
Author Organization [facility] Address [address] [place] [address] Care Team Providers Care Is Project Manager Name Role Phone Margot Huang PA-C Primary Care Provider [phone] Reason for Visit * Reason Comments CELLULITIS Encounter Details Date Type Department Care Team (Late st Contact Info) Description 07/23/2024 7:30 AM CDT Telemedicine [facility] [address] [place] [address] Steve Stoll PA-C [address] [place] [address] Right foot pain (Primary Dx); Cellulitis of [...] Additionally, you may receive a [facility] through [employer], phone or mail about your visit with [...] out to me via clinic line or [employer] if there is ever anything you need. Nehemiah Stoll PA-C [facility] documented in this encounter Progress Notes * Steve Stoll PA-C - 07/23/2024 7:30 AM CDT Images from the original note were not included. [facility] Nehemiah Stoll PA-C Kacey [...] She states she was recently treated at [facility] for cellulitis of her right [...] of visit. Nehemiah Stoll PA-C Family Medicine [facility] documented in this encounter Plan of Treatment Upcoming Encounters Date Type Department Care Team (Late st Contact Info) Description 09/08/2024 4:[address] COLLECTIONS OFFICER [facility] [address] [place], [place] [address] Rosa Maria Phillips MD [address] [place] [address] documented as of this encounter Visit Diagnoses Diagnosis Right foot pain- Primary Pain in limb Cellulitis of right lower extremity Cellulitis and abscess of leg, except foot documented in this encounter Care Teams Is Project Manager Relationship Specialty Start Date End Date Margot Huang PA-C [address] [place] [address] PCP - General Physician Warehouse Laborer 11/13/16 documented as of this encounter
--- OUTSIDE RECORDS SUMMARY | 2024-09-06 23:01 | XMS_ITS | Encounter Summary ---
Author Organization [employer] Address [address] [place] [address] Care Team Providers Care Brick Burner Head Name Role Phone Margot Huang PA-C Primary Care Provider [phone] Reason for Visit * Reason Comments CONSULT Encounter Details Date Type Department Care Team (Late st Contact Info) Description 08/24/2024 4:00 PM COMMISSION SPECIALIST Telemedicine [facility] [address] [place] [phone] Swati Murray MSW, EQUIPMENT INSTALLATION PROFESSIONAL [address] [place] [address] ROSE MARY (generalized anxiety disorder) (HRC) [...] encounter Progress Notes * Swati Murray MSW, EQUIPMENT INSTALLATION PROFESSIONAL - 08/24/2024 4:00 PM CST BEHAVIORAL HEALTH CONSULTATION - PROGRESS NOTE DATE: 08/24/2024 PATIENT: Kacey Flora PROVIDER: PRATIBHA Vargas, 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 Is struggling with not [...] DIAGNOSIS 1. ROSE MARY (generalized anxiety disorder) ([facility]) Rule out Health Anxiety Disorder CONSULTATION SUMMARY: [...] it is recommended that the patient [facility]. Review provided handouts/resources and practice skills discussed in session. Utilize consultation services for psychoeducation, support, brief assessment, and skill developmentto support active therapeutic needs. Patient is going to try to reestablish care with previous mental health provider, is also willing to use [facility] if needed. Follow up with PCP for scheduled visit. Electronically signed by: PRATIBHA Vargas LICSW Behavioral Health Traffic Analysis Technician 08/24/2024, 6:19 PM ISSION SPECIALIST documented in this encounter Plan of Treatment Upcoming Encounters Date Type Department Care Team (Late st Contact Info) Description 09/08/2024 4:30 PM COMMISSION SPECIALIST [facility] [address] [place] [address] Rosa Maria Phillips MD [address] [place] [address] documented as of this encounter Visit Diagnoses Diagnosis ROSE MARY (generalized anxiety disorder) (HRC)- Primary Generalized anxiety disorder documented in this encounter Care Teams Brick Burner Head Relationship Specialty Start Date End Date Margot Huang PA-C [address] [place] [address] PCP - General Physician Media Coordinator 11/13/16 documented as of this encounter
--- OUTSIDE RECORDS SUMMARY | 2024-09-06 23:01 | XMS_ITS | Encounter Summary ---
Author Organization [employer] Address [address] [place] [address] Care Team Providers Care Software Programmer Name Role Phone Margot Huang PA-C Primary Care Provider [phone] Reason for Visit * Reason Comments Leg Pain Ever since having ce llulitis on her right leg, she gets weird sensations. She went to the ER in [place] and was told she could possibly have MS. She does get tingling sensations in her feet. Encounter Details Date Type Department Care Team (Late st Contact Info) Description 08/06/2024 9:40 AM CDT [facility] [address] [place], [place] [address] Robert Valdez, [facility] [address] [place], [place] [address] Generalized anxiety disorder with panic attacks (HRC) [...] this encounter Progress Notes * Robert Valdez, [facility] - 08/06/2024 9:40 AM CDT Chief Complaint Patient presents with Leg Pain Ever since having cellulitis on her right leg, she gets weird sensations. 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 documented in this encounter Plan of Treatment Upcoming Encounters Date Type Department Care Team (Late st Contact Info) Description 09/08/2024 4:30 PM FIELD MAP TECHNICIAN [facility]icine [facility] [address] [place], [place] [address] Rosa Maria Phillips MD [address] [place] [address] documented as of this encounter Visit Diagnoses Diagnosis Generalized anxiety disorder with panic attacks (HRC)- Primary History of depression Personal history of other mental disorder documented in this encounter Care Teams Software Programmer Relationship Specialty Start Date End Date Margot Huang PA-C [address] [place] [address] PCP - General Physician Records And Information Manager 11/13/16 documented as of this encounter
--- OUTSIDE RECORDS SUMMARY | 2024-09-06 23:01 | XMS_ITS | Encounter Summary ---
Author Organization [employer] Address [address] [place] [address] Care Team Providers Care Stave Grader Name Role Phone Margot Huang PA-C Primary Care Provider [phone] Reason for Visit * Reason Comments CELLULITIS Encounter Details Date Type Department Care Team (Late st Contact Info) Description 07/15/2024 Nurse Triage Careline [address] [place], [place] [id number] Leobardo Lloyd X CELLULITIS Social History Tobacco [...] cellulitis Protocols used: Cellulitis on Antibiotic Follow-up [id number] * Leobardo Lloyd - 07/15/2024 6:06 PM CDT Verified patient identity using three identifiers: Yes Caller's relationship to patient: Self, Do you have a provider/clinic where you are seen for this? STACEY/Dejon/Kari/Colton Are you calling about a /BANK SALES AND SERVICE MANAGER related concern? No Symptoms Describe the reason [...] st Contact Info) Description 09/08/2024 4:30 PM JUNIOR LOAN PROCESSOR Telemedicine [facility] Medicine [address] [place] [address] Rosa Maria Phillips MD [address] [place] [address] documented as of this encounter Visit Diagnoses Not on filedocumented in this encounter Care Teams Stave Grader Relationship Specialty Start Date End Date Margot Huang, PAKeenanC [address] [place] [address] PCP - General Physician Mechanical Field Engineer 11/13/16 documented as of this encounter
--- OUTSIDE RECORDS SUMMARY | 2024-09-06 23:01 | XMS_ITS | Encounter Summary ---
Author Organization [employer] Address [address] [address] Care Team Providers Care Securities Analyst Name Role Phone Margot Huang PA-C Primary Care Provider [phone] Reason for Visit * Reason Comments TACHYCARDIA Exertional Encounter Details Date Type Department Care Team (Latest Contact Info) Description 09/04/2024 6:40 PM DROP HAMMER SET UP OPERATOR Office Visit [place] [address] [facility] [id number] [place] [id number] Chely Leavitt, PADMINI [address] [place] [address] Tachycardia; ST segment changes on electrocardiogram Social History Tobacco Use Types Packs/Day Years [...] Sign Reading Time Taken Comments Blood Pressure 131/86 09/04/2024 5:58 PM DROP HAMMER SET UP OPERATOR Pulse 115 09/04/2024 5:58 PM DROP HAMMER SET UP OPERATOR Temperature 37.2 ??C (98.9 ??F) 09/04/2024 5:58 PM CS T Respiratory Rate 18 09/04/2024 5:58 PM DROP HAMMER SET UP OPERATOR Oxygen Saturation 99% 09/04/2024 5:58 PM DROP HAMMER SET UP OPERATOR Inhaled Oxygen Concentration - - Weight - - Height - - Body Mass Index - - documented in this encounter Progress Notes * Chely Leavitt PA-C - 09/04/2024 6:40 PM CST [facility] Patient: Kacey Hines Date of : 1990 (34 y.o.) Subjective Chief Complaint: Chief Complaint Patient presents with TACHYCARDIA Exertional History of Present Illness: Kacey Hines is a 34 y.o. female With a history of anxiety and depression who presents for evaluation of tachycardia and dyspnea. Patient notes she has been dealing with a lot of anxiety and depression recently. Has been seen in the emergency department multiple timesfor it. It has been causing her to have an elevated heart rate. She has had a cardiac evaluation. However, she notes the tachycardia continues to worsen. Her heart rate will get into the 130s with simple activity. She has associated dyspnea that also feels like it was worsening. She was wonder if she could be dehydrated as she has not been eating and drinking well. No hemoptysis, cough or cold sym ptoms, fevers. Past Medical History: Patient Active Problem List Diagnosis ROSE MARY (generalized anxiety disorder) ([facility]) History of depression Migraine with aura and without status migrainosus, not intractable S/P primary low transverse Gestational hypertension Allergies: Sulphadimidine [sulfa antibiotics] Medications: LORazepam, atenolol, escitalopram oxalate, hydrOXYzine HCl, and rizatriptan Family History: Family History Problem Relation Name Age of [...] Family History Thyroid Disorder Negative Family History Social History: Social History Tobacco Use Smoking status: Former Current packs/day: 0.00 Average packs/day: 0.5 packs/day for 10.0 years (5.0 ttl pk-yrs) Types: Cigarettes Start date: 01/21/2012 Quit date: 01/20/2022 Years since quittin.6 Smokeless tobacco: Former Tobacco comments: Pt vapes Vaping Use Vaping status: Every Day Substances: Flavoring, Nicotine-salt Substance Use Topics Alcohol use: Not Currently Comment: barely Drug use: No Review of Systems: All review of systems reviewed and negative other than as noted in the HPI. Objective Physical Exam: Vital Signs: BP 131/86 (BP Location: Right Arm, BP Cuff Size: Regular) Pulse (!) 115 Temp 37.2 ??C (98.9 ??F) (Oral) Resp 18 LMP 07/22/2024 (Exact Date) SpO2 99% With exertion: oxygen 96% on room air, pulse 139 bpm General: Resting in the chair. Head: The scalp, head and face appear normal. Eyes: No conjunctival injection or pallor. ENT: Moist mucus membranes. No uvular deviation. Posterior oropharynx is without erythema, exudate or tonsillar swelling. Neck: Supple, no rigidity noted. Resp: Non-labored breathing. No tachypnea. Lung calle clear to auscultation without wheezes or rales. CV: Tachycardic, but regular rhythm. Normal S1 and S2, no S3 or S4. No pathological murmur detected. Radial and PT pulses intact and symmetric. MS: Normal muscular tone. No asymmetrical lower leg swelling or calf tenderness. Neuro: Awake and alert. Speech is clear. Skin: No rash or pallor. Psych: Normal affect. Appropriate interactions. ECG: Results for orders placed or performed in visit on 09/04/24 ECG 12-LEAD ROUTINE (Non Lab to perform-Today)-STAT Result Value Ref Range Ventricular Rate 110 BPM Atrial Rate 110 BPM QRS Duration 90 ms QT 464 ms QTc 627 ms R Paterson 89 degrees T Paterson 59 degrees Tachycardic. Inverted T waves in anterolateral leads new compared to previous. Per my read, cardiology read pending. I have independently reviewed ECG Assessment Kacey Hines is a 34 y.o. female presented with tachycardia and dyspnea. Concern was for cardiacetiology, dissection, PE, pneumonia, among others. ECG was obtained and shows new inverted T waves in the anterolateral leads compared to her previous on file. We also contacted [facility] and they faxed us a copy of her ECG from 08/31. The T wave inversions today are new compared to that ECG aswell. While she has a reassuring cardiac and PE, evaluation a few days ago, she is having worseningsymptoms, is fairly tachy here with minimal exertion and new ECG changes, I do feel she requires evaluation at a high level of care again for cardiac rule out. Patient will go to [facility] ED. I discussed with an EN there prior to transfer. I do feel she is safe for transfer via private vehicle. She is here with her significant other. Patient verbalized understanding and agreement with the plan. Impression: 1. Tachycardia 2. ST segment changes on electrocardiogram Chely Leavitt PA-C HAMMER SET UP OPERATOR documented in this encounter Nursing Notes * Alhaji Oliva LPN - 09/04/2024 6:40 PM CST Patient is here today due to elevated heart rate with exertion that has been going on for 1 weeks. Pt states she is going through some medication changes and having difficulty making sure to be eating and drinking Associated symptoms include headache, dizziness, weakness, and dry mouth. HAMMER SET UP OPERATOR documented in this encounter Plan of Treatment Upcoming Encounters Date Type Department Care Team (Late st Contact Info) Description 09/08/2024 4:30 PM DROP HAMMER SET UP OPERATOR Telemedicine [facility] [address] [place], [place] [phone] Rosa Maria Phillips MD [address] [place], [place] [phone] documented as of this encounter Procedures Procedure Name Priority Date/Time Associated Diagnosis Comments ECG 12 LEAD OUTPATIENT STAT 09/04/2024 6:20 PM DROP HAMMER SET UP OPERATOR Tachycardia documented in this encounter Results * ECG 12-LEAD ROUTINE (Non Lab to perform-Today)-STAT (09/04/2024 6:20 PM DROP HAMMER SET UP OPERATOR) Ventricular Rate 110 BPM MUSE GHP Atrial Rate 110 BPM MUSE GHP QRS Duration 90 ms MUSE GHP QT 464 ms MUSE GHP QTc 627 ms MUSE GHP R Paterson 89 degrees MUSE GHP T Paterson 59 degrees MUSE GHP 09/04/2024 6:20 PM DROP HAMMER SET UP OPERATOR Narrative MUSE GHP - 09/04/2024 9:17 PM DROP HAMMER SET UP OPERATOR Sinus rhythm T wave abnormality, consider anterolateral ischemia Prolonged QT Abnormal ECG When compared with ECG of 02-OCT-2017 14:00, Inverted T waves have replaced nonspecific T wave abnormality in Inferior leads T wave inversion now evident in Anterolateral leads QT has lengthened Confirmed by Mara Méndez ([id number]) on 09/04/2024 9:17:36 PM Procedure Note Mara Méndez MD - 09/04/2024 Sinus rhythm T wave abnormality, consider anterolateral ischemia Prolonged QT Abnormal ECG When compared with ECG of 02-OCT-2017 14:00, Inverted T waves have replaced nonspecific T wave abnormality in Inferiorleads T wave inversion now evident in Anterolateral leads QT has lengthened Confirmed by Mara Méndez ([id number]) on 09/04/2024 9:17:36 PM Cheyl Leavitt PA-C PN ECG ORDERABLES [facility] [address] [place] [address] documented in this encounter Visit Diagnoses Diagnosis Tachycardia Tachycardia, unspecified ST segment changes on electrocardiogram documented in this encounter Care Teams Securities Analyst Relationship Specialty Start Date End Date Margot Huang PA-C [address] [place] [address] PCP - General Physician Underbaster 11/13/16 documented as of this encounter
--- OUTSIDE RECORDS SUMMARY | 2024-09-06 23:01 | XMS_ITS | Clinical Summary ---
Author Organization [facility] On [facility] Address [address], [place] [address] Care Team Providers Care Administrative Professional Name Role Phone Margot Huang PA-C Primary Care Provider [phone] Source Comments You are receiving this document as you are listed as the primary care provider,follow-up provider, or the patient has been referred to you for consultation.This is in compliance with the Medicare and[facility] EHR Incentive Program,which states Providers who transition their patient to another setting of careor provider of care or refers their patient to another provider of care shouldprovide summary care record for each transition of care or referral. Attunity Allergies Active Allergy Reactions Criticality Noted Date [...] Encounters Date Type Department Care Team Description 09/04/2024 6:40 PM HORSE RACE TIMER Office Visit [place] [facility] [address] [place] [phone] Chely Leavitt PA-C Tachycardia; ST segment changes on electrocardiogram 08/26/2024 3:30 PM HORSE RACE TIMER Lab Visit [facility] [place] [facility] [address] [place], [place] [phone] Anxiety (HRC); Palpitations 08/26/2024 3:00 PM HORSE RACE TIMER [facility] [address] [place], [place] [phone] Rosa Maria Phillips MD Anxiety (HRC) (Primary Dx); Palpitations 08/26/2024 1:00 PM HORSE RACE TIMER E-Visit [facility] [address] [facility] [place] [address] Rosa Maria Phillips MD Chief Comp: Follow-up, NOS 08/26/2024 Nurse Triage [facility] [address] [place] [address] Margot Huang PA-C ANXIETY 08/24/2024 4:00 PM HORSE RACE TIMER Telemedicine [facility] [address] [place] [address] Swati Murray, MEDICATION RECONCILIATION TECHNICIAN, BRYOLOGIST ROSE MARY (generalized anxiety disorder) (HRC) (Primary Dx) 08/24/2024 E-Visit [facility] [address] [place] [address] Mychart, Generic Provider 08/19/2024 2:30 PM CDT Office Visit [address] [place] [address] Rosa Maria Phillips MD Anxiety (HRC) (Primary Dx); Intractable migraine with aura without status migrainosus 08/17/2024 3:30 PM CDT E-Visit [address] [phone] Jim Esparza PA-C Chief Comp: QUESTIONS, GENERAL 08/13/2024 9:00 AM CDT Office Visit [address] [phone] Jim Esparza PA-C Anxiety (HRC) (Primary Dx); Radiculopathy of lumbar region; Sacroiliitis (HRC) 08/11/2024 1:00 PM CDT Ancillary Procedure [facility] [address] [place] [phone] Antonia Ya PA-C Right calf pain 08/11/2024 12:40 PM CDT Office Visit [place] [address] [facility] [address] [place] [phone] Antonia Ya PA-C Low back pain, unspecified back pain laterality, unspecified chronicity, unspecified whether sciatica present; Right calf pain 08/06/2024 9:40 AM CDT [facility] [address] [place] [address] Robert Valdez, [facility] Generalized anxiety disorder with panic attacks (HRC) (Primary Dx); History of depression 07/28/2024 4:30 PM CDT E-Visit [facility] [address] [facility] [place] [address] Steve Stoll PA-C Chief Comp: Follow-up, NOS 07/23/2024 12:20 PM CDT Ancillary Procedure [facility] [address] [address] [place] [phone] Steve Stoll PA-C Right foot pain 07/23/2024 7:30 AM CDT Telemedicine [facility] [address] [facility] [place] [address] Steve Stoll PA-C Right foot pain (Primary Dx); Cellulitis of right lower extremity 07/15/2024 Nurse Triage [facility] [address] [place] [address] Leobardo Llody CELLULITIS from Last 3 Months Immunizations Name [...] Comments Blood Pressure 131/86 09/04/2024 5:58 PM HORSE RACE TIMER Pulse 115 09/04/2024 5:58 PM HORSE RACE TIMER Temperature 37.2 ??C (98.9 ??F) 09/04/2024 5:58 PM CS T Respiratory Rate 18 09/04/2024 5:58 PM HORSE RACE TIMER Oxygen Saturation 99% 09/04/2024 5:58 PM HORSE RACE TIMER Inhaled Oxygen Concentration - - Weight 80.3 kg (177 lb) 08/26/2024 3:02 PM HORSE RACE TIMER Height 167.6 cm (5' 6) 08/13/2024 8:55 AM CDT Body Mass Index 28.57 08/13/2024 8:55 AM CDT Plan of Treatment Upcoming Encounters Date Type Department Care Team (Late st Contact Info) Description 09/08/2024 4:30 PM HORSE RACE TIMER Telemedicine [facility] [phone] [place] [address] Rosa Maria Phillips MD [address] [place], [place] [phone] Health Maintenance Due Date Last Done Comments [...] 12 LEAD OUTPATIENT STAT 09/04/2024 6:20 PM HORSE RACE TIMER Tachycardia COMPLETE BLOOD COUNT-W/DIFF Routine 08/26/2024 3:30 PM HORSE RACE TIMER Anxiety (HRC) Palpitations TSH, SENSITIVE Routine 08/26/2024 3:30 PM HORSE RACE TIMER Anxiety (HRC) Palpitations BASIC METABOLIC PANEL Routine 08/26/2024 3:30 PM HORSE RACE TIMER Anxiety (HRC) Palpitations CBC AND DIFFERENTIAL PANEL Routine 08/26/2024 3:30 PM HORSE RACE TIMER Anxiety (HRC) Palpitations US VENOUS RIGHT LOWER [...] AG/AB 4TH GEN Routine 10/02/2017 1:40 PM HORSE RACE TIMER Encounter for supervision of normal first in first trimester PAP TEST, ROUTINE Routine 08/21/2017 11: 14 AM CDT Screening for malignant neoplasm of cervix from Last 3 Months or Most Recently Relevant to Health Maintenance Results * ECG 12-LEAD ROUTINE (Non Lab to perform-Today)-STAT (09/04/2024 6:20 PM HORSE RACE TIMER) Ventricular Rate 110 BPM [facility] Atrial Rate 110 BPM [facility] QRS Duration 90 ms [facility] QT 464 ms [facility] QTc 627 ms [facility] R Guy 89 degrees MUSE [facility] T Guy 59 degrees [facility] 09/04/2024 6:20 PM HORSE RACE TIMER Narrative [facility] - 09/04/2024 9:17 PM HORSE RACE TIMER Sinus rhythm T wave abnormality, consider anterolateral ischemia Prolonged QT Abnormal ECG When compared with ECG of 13-DEC-2017 14:00, Inverted T waves have replaced nonspecific T wave abnormality in Inferior leads T wave inversion now evident in Anterolateral leads QT has lengthened Confirmed by Mara Méndez ([id number]) on 09/04/2024 9:17:36 PM Procedure Note Mara Méndez MD - 09/04/2024 Sinus rhythm T wave abnormality, consider anterolateral ischemia Prolonged QT Abnormal ECG When compared with ECG of 02-OCT-2017 14:00, Inverted T waves have replaced nonspecific T wave abnormality in Inferiorleads T wave inversion now evident in Anterolateral leads QT has lengthened Confirmed by Mara Méndez ([id number]) on 09/04/2024 9:17:36 PM Chely Leavitt PA-C PN ECG ORDERABLES [facility] [address] [place] [address] * Complete Blood Count-W/Diff (08/26/2024 3:30 PM HORSE RACE TIMER) [facility] WBC 6.5 3.5 - 10.5 x10(9)/L 08/26/2024 3:36 PM HORSE RACE TIMER [facility] RBC 4.95 3.90 - 5.03 x10(12)/L 08/26/2024 3:36 PM HORSE RACE TIMER [facility] Hemoglobin 14.8 12.0 - 15.5 g/dL 08/26/2024 3:36 PM HORSE RACE TIMER [facility] HCT 43.5 34.9 - 44.5 % 08/26/2024 3:36 PM HORSE RACE TIMER [facility] MCV 87.9 80.0 - 100.0 fL 08/26/2024 3:36 PM HORSE RACE TIMER [facility] MCH 29.9 27.6 - 33.3 pg 08/26/2024 3:36 PM HORSE RACE TIMER [facility] MCHC 34.0 31.5 - 35.2 g/dL 08/26/2024 3:36 PM HORSE RACE TIMER [facility] RDW 13.1 11.9 - 15.5 % 08/26/2024 3:36 PM HORSE RACE TIMER [facility] Platelets 264 150 - 450 x10(9)/L 08/26/2024 3:36 PM HORSE RACE TIMER [facility] Neutrophil Absolute 4.5 1.7 - 7.0 10(9)/L 08/26/2024 3:36 PM HORSE RACE TIMER [facility] Lymphocyte Absolute 1.4 1.0 - 4.8 10(9)/L 08/26/2024 3:36 PM HORSE RACE TIMER [facility] Monocyte Absolute 0.5 0.2 - 0.9 10(9)/L 08/26/2024 3:36 PM HORSE RACE TIMER [facility] Eosinophil Absolute 0.0 0.0 - 0.5 10(9)/L 08/26/2024 3:36 PM HORSE RACE TIMER [facility] Basophil Absolute 0.0 0.0 - 0.3 10(9)/L 08/26/2024 3:36 PM HORSE RACE TIMER [facility] Blood Venipuncture / Unknown 08/26/2024 3:30 PM HORSE RACE TIMER 08/26/2024 3:30 PM HORSE RACE TIMER Rosa Maria Phillips MD LAB_1 Performing Organization Address City/[facility]/ZIP Co de Phone Number [facility] [address] [place] [address] * TSH (08/26/2024 3:30 PM HORSE RACE TIMER) Pathologist [facility] TSH, Sensitive 1.10 0.30 - 4.50 uIU/mL 08/26/2024 9:42 PM HORSE RACE TIMER [facility] Blood Venipuncture / Unknown 08/26/2024 3:30 PM HORSE RACE TIMER 08/26/2024 3:30 PM HORSE RACE TIMER Rosa Maria Phillips MD LAB_1 [facility] [address] * (ABNORMAL) Basic Metabolic Panel (08/26/2024 3:30 PM HORSE RACE TIMER) Pathologist [facility] Sodium 140 136 - 145 mmol/L 08/27/2024 10:07 AM [facility] Potassium 3.6 3.5 - 5.1 mmol/L 08/27/2024 10:07 AM [facility] Chloride 110(H) 98 - 109 mmol/L 08/27/2024 10:07 AM [facility] CO2 21 20 - 29 mmol/L 08/27/2024 10:07 AM [facility] Anion Gap 9 6 - 16 mmol/L 08/27/2024 10:07 AM [facility] Calcium 9.6 8.4 - 10.4 mg/dL 08/27/2024 10:07 AM [facility] BUN 9 7 - 26 mg/dL 08/27/2024 10:07 AM [facility] Creatinine 0.72 0.55 - 1.02 mg/dL 08/27/2024 10:07 AM [facility] Glucose 102(H) 70 - 100 mg/dL 08/27/2024 10:07 AM [facility] Comment:The given reference range is for the fasting state. Non-fasting reference range for glucose is 70 - 180 mg/dL. GFR, Estimated >60 >60 mL/min/1.7 3m2 08/27/2024 10:07 AM [facility] Hours Fasting 0.0 8 - 12 Hours 08/27/2024 10:07 AM [facility] Blood Venipuncture / Unknown 08/26/2024 3:30 PM HORSE RACE TIMER 08/26/2024 3:30 PM HORSE RACE TIMER Rosa Maria Phillips MD LAB_1 [facility] [address] [place] [address] * US Venous Right Lower Extrem Doppler [...] excluded by this technique. Antonia Ya PA-C [facility] US * (ABNORMAL) Urine Culture - Collect in Lab (08/11/2024 10:18 AM CDT) Urine Culture Growth(A) 08/12/2024 10:20 PM CDT [facility] Urine Culture <10,000 CFU/mL Mixed Bacterial Growth 08/12/2024 10:20 PM T [facility] Comment: Mixed Bacterial Growth indicates the specimen is likely contaminated at collection with urogenital and/or fecal satinder. The presence of organisms at <10,000 cfu/ml in culture, UTI unlikely. Urine URINE SPECIMEN COLLECTION, CLEAN CATCH / Unknown Non-blood Collection / Unknown 08/11/2024 10:18 AM CDT 08/11/2024 10:35 AM CDT Antonia Ya PA-C LAB_[address] [address], [facility] * (ABNORMAL) Urinalysis Routine, Micro/Culture if Pos: Clean Catch (08/11/2024 10:18 AM CDT) Urine Culture Comment Urinalysis results do not meet criteria for urine culture reflex. 08/11/2024 10:54 AM CDT [facility] Color Yellow 08/11/2024 10:54 AM CDT [facility] Clarity Clear Clear 08/11/2024 10:54 AM CDT [facility] Specific [place] >=1.030(A) 1.005 - 1.030 08/11/2024 10:54 AM CDT [facility] pH 5.5 5.0 - 8.0 08/11/2024 10:54 AM T [facility] Protein Negative Neg/Trace 08/11/2024 10:54 AM CDT [facility] Glucose Negative Negative 08/11/2024 10:54 AM T [facility] Ketones 15(A) Negative 08/11/2024 10:54 AM T [facility] Urobilinogen 0.2 <2.0 08/11/2024 10:54 AM T [facility] Bilirubin Negative Negative 08/11/2024 10:54 AM CDT [facility] Blood Negative Neg/Trace 08/11/2024 10:54 AM T [facility] Nitrite Negative Negative 08/11/2024 10:54 AM T [facility] Leukocyte Esterase Trace(A) Negative 08/11/2024 10:54 AM T [facility] Source Clean Catch 08/11/2024 10:[address] [facility] Urine URINE SPECIMEN COLLECTION, CLEAN CATCH / Unknown Non-blood Collection / Unknown 08/11/2024 10:18 AM CDT 08/11/2024 10:35 AM CDT Laurent Martinez Chauncey [facility] LAB_1 Performing Organization Address City/State/[facility] Co de Phone Number [facility] [address] [place] [address], [facility] * (ABNORMAL) Urine Microscopic Evaluation: Clean Catch (08/11/2024 10:18 AM CDT) Red Blood Cells 0-3 0 - 3 /HPF 10:54 AM T [facility] White Blood Cells 6-9(A) 0 - 5 /HPF 08/11/2024 10:54 AM T [facility] Bacteria Moderate(A ) None Seen /HPF 08/11/2024 10:54 AM T [facility] Squamous Epithelial Cells Moderate(A ) None Seen, Occasional , Few /HPF 08/11/2024 10:54 AM T [facility] Mucus Present(A) None Seen /HPF 08/11/2024 10:54 AM CDT [facility] Urine URINE SPECIMEN COLLECTION, CLEAN CATCH / Unknown Non-blood Collection / Unknown 08/11/2024 10:18 AM CDT 08/11/2024 10:35 AM CDT Laurent Martinez Chauncey [facility] LAB_1 Performing Organization Address City/[facility]/ZIP Co de Phone Number [facility] [address] [place] [address] * XR Foot Rt 3+ Views [...] 1/2 Ag/Ab 4th Generation (10/02/2017 1:40 PM HORSE RACE TIMER) HIV 1/2 AG/AB 4thGEN Negative (Non Reactive) NEGNR [facility] Comment:HIV-1 p24 Ag and HIV -1/HIV-2 Ab not detected. 10/02/2017 1:40 PM HORSE RACE TIMER 10/02/2017 1:47 PM HORSE RACE TIMER Narrative [facility] - 10/02/2017 7:15 PM HORSE RACE TIMER Performed at [facility], [address] [place] [address] ??[address] Meg Gracia APRN, CNM LAB_1 Performing Organization Address City/[facility]/ZIP Co de Phone Number [facility] [phone] * Pap Test, Routine (08/21/2017 11:14 AM CDT) Cytology, Pap (NOTE) Garment Cutter Cytology Report Patient Name: TURNER TIDWELL Taken: 08/21/2017 Received: 08/21/2017 Reported: 09/02/2017 Physician(s): GENARO JAMIL ?Source of Specimen Pap Test, Routine Cervical/Endocervi cristina: ?Specimen Adequacy ?Satisfactory for evaluation. ??Endocervical component present. ? Final Cytologic Interpretation/Res ult NEGATIVE FOR INTRAEPITHELIAL LESION OR MALIGNANCY (NILM) ?? *Electronically Signed Out By Savanah Thompson CT(ASCP)* SARAH Pack (ASCP) Savanah Thompson CT(ASCP) ? Pap Smear History Date of Last Menstrual Period: No LMP recorded ?? Microscopic Description Microscopic examination is performed. [facility] Department of Pathology [address] [place] [id number] [facility] 08/21/2017 11:1 4 AM CDT 08/21/2017 6:30 PM CDT Genaro Jamil MD LAB_1 [facility]X [phone] from Last 3 Months or Most Recently Relevant to Health Maintenance Advance Directives * Full Code (Latest Code Status on File) Date Activated Date Inactivated Comments 11/27/2017 8:06 AM 11/27/2017 2:06 PM Care Teams Administrative Professional Relationship Specialty Start Date End Date Margot Huang PA-C [address] [place] [address] PCP - General Physician Instructional Design Technologist 11/13/16
--- OUTSIDE RECORDS SUMMARY | 2024-09-06 23:01 | XMS_ITS | Encounter Summary ---
Author Organization [facility] Address [address], [place] [address] Care Team Providers Care Principle Software Engineer Name Role Phone Margot Huang PA-C Primary Care Provider [phone] Reason for Visit * Reason Comments Follow-up, NOS Entered automaticall y based on patient selection in [employer]. Encounter Details Date Type Department Care Team (Late Contact Info) Description 07/28/2024 4:30 PM CDT E-Visit [facility] [address] [place] [address] Steve Stoll PA-C [address] [place] [address] Chief Comp: Follow-up, NOS Social History Tobacco [...] (Late Contact Info) Description 09/08/2024 4:30 PM GAME PRODUCER Telemedicine [facility] [address] [place] [address] Rosa Maria Phillips MD [address] [place], [place] [phone] documented as of this encounter Visit Diagnoses Not on filedocumented in this encounter Care Teams Principle Software Engineer Relationship Specialty Start Date End Date Margot Huang PA-C [address] [place], [place] [phone] PCP - General Physician Academic Records Specialist 11/13/16 documented as of this encounter
--- OUTSIDE RECORDS SUMMARY | 2024-09-06 23:01 | XMS_ITS | Encounter Summary ---
Author Organization [employer] Address [address] [place] [address] Care Team Providers Care Scale Balancer Name Role Phone Margot Huang PA-C Primary Care Provider [phone] Reason for Referral * Consult/Transfer Care (Routine) - New Request Specialty Diagnoses / Procedures Referred By Sukhi hassan Referred To Contact Diagnoses Anxiety (HRC) Rosa Maria Phillips MD [address] [place] [address] Referral ID Status Reason Start Date Expiration Date V isits Requested Visits Authorized [id number] New Request 08/19/2024 11/18/2025 1 1 Scheduling Instructions Your clinician has recommended an appointment with Behavioral Health. You may call [phone] to schedule your appointment. This recommended service/s [...] Description 08/19/2024 2:30 PM CDT [facility] [address] [place], [place] [address] Rosa Maria Phillips MD [address] [place] [address] Anxiety (HRC) (Primary Dx); Intractable [...] List Diagnosis ROSE MARY (generalized anxiety disorder) ([facility]) History of depression Migraine with aura and without status migrainosus, not intractable S/P primary low transverse Gestational hypertension PAST MEDICAL HISTORY : Past Medical History: Diagnosis Date Bipolar affect, depressed ([facility]) Bipolar affective disorder ([facility]) 07/28/2009 Cellulitis of right lower extremity 07/08/2024 Treated at outside urgent care - treated with oral Keflex QID x 10 days Depression ([facility]) Posttraumatic stress disorder ([facility]) 07/28/2009 Right foot pain 07/23/2024 [...] level: Not on file Occupational History 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 [address] [place] [address] Rosa Maria Phillips MD [address] [place], [place] [address] Scheduled Referrals Name Type Priority Associated Diagnoses Orde r Schedule Behavioral Health Adult/Peds Referral Routine Anxiety (HRC) Ordered: 08/19/2024 documented as of this encounter Visit Diagnoses Diagnosis Anxiety (HRC)- Primary Anxiety state, unspecified Intractable migraine with aura without status migrainosus Migraine with aura, with intractable migraine, so stated, without mention of status migrainosus documented in this encounter Care Teams Scale Balancer Relationship Specialty Start Date End Date Margot Huang PAKeenanC [address] [place] [address] PCP - General Physician Ordnance Truck Installation Mechanic 11/13/16 documented as of this encounter
--- OUTSIDE RECORDS SUMMARY | 2024-09-06 23:01 | XMS_ITS | Encounter Summary ---
Author Organization [employer] Address [address], [place] [address] Care Team Providers Care General Lot Attendant Name Role Phone Margot Huang PA-C Primary Care Provider [phone] Reason for Visit * Procedure/Equipment (Routine) - Incomplete Specialty Diagnoses / Procedures Referred By Sukhi t Referred To Contact Diagnoses Right calf pain Procedures US Venous Right Lower Extrem Doppler Antonia Ya PA-C [address] [place] [address] Referral ID Status Reason Start Date Expiration Date V isits Requested Visits Authorized [id number] Incomplete 08/11/2024 11/10/2025 1 1 Encounter Details Date Type Department Care Team (Late st Contact Info) Description 08/11/2024 1:00 PM CDT Ancillary Procedure [facility] [address] [place] [phone] Antonia Ya PA-C [address] [place] [address] Right calf pain Social History [...] st Contact Info) Description 09/08/2024 4:30 PM RELATIONSHIP COUNSELOR [facility] [address] [place] [place] [address] Rosa Maria Phillips MD [address] [place] [address] documented as of this encounter Procedures Procedure [...] pain documented in this encounter Care Teams General Lot Attendant Relationship Specialty Start Date End Date Margot Huang PA-C [address] [place] [address] PCP - General Physician Risk Developer 11/13/16 documented as of this encounter
--- OUTSIDE RECORDS SUMMARY | 2024-09-06 23:01 | XMS_ITS | Encounter Summary ---
Author Organization [employer] Address [address] [address] Care Team Providers Care Reel System Operator Name Role Phone Margot Huang PA-C Primary Care Provider [phone] Reason for Referral * Therapies (Routine) - New Request Specialty Diagnoses / Procedures Referred By Sukhi hassan Referred To Contact Diagnoses Low back pain, unspecified back pain laterality, unspecified chronicity, unspecified whether sciatica present Right calf pain Antonia Ya PA-C [address] [place] [address] Referral ID Status Reason Start Date Expiration Date V isits Requested Visits Authorized [id number] New Request 08/11/2024 08/11/2025 1 1 Scheduling Instructions Your clinician has recommended an appointment with [facility]. You can quickly schedule your appointment by signing in to your online account at [email or web address] or through the text message you may have received. You can also make an appointment by calling [phone]. We suggest you call your health insurance [...] present Right calf pain Antonia Ya PA-C [address] [place] [address] Referral ID Status Reason Start Date Expiration Date V isits Requested Visits Authorized [id number] New Request 08/11/2024 11/09/2024 1 1 Scheduling Instructions Your provider has recommended an appointment with [facility]. You can quickly make your appointment online at [email or web address]. You can also call [phone] for help scheduling your appointment. We suggest [...] Right Lower Extrem Doppler Antonia Ya PA-C [address] [place] [address] Referral ID Status Reason Start Date Expiration Date V isits Requested Visits Authorized [id number] Incomplete 08/11/2024 11/10/2025 1 1 Reason for Visit * Reason Comments Back Pain LEG PAIN Encounter Details Date Type Department Care Team (Late st Contact Info) Description 08/11/2024 12:40 PM CDT Office Visit [facility] [address] [place] [phone] Antonia Ya PA-C [address] [place] [address] Low back pain, unspecified back pain laterality, [...] be sent through Care Everywhere. * Sciatica (Armenian) documented in this encounter Progress Notes * [...] Color Yellow Urine Clarity Clear Clear Specific [place], Urine >=1.030 (A) 1.005 - 1.030 PH [...] st Contact Info) Description 09/08/2024 4:30 PM CUSTOMER ACCOUNT TECHNICIAN [facility] [address] [place] [address] Rosa Maria Phillips MD [address] [place] [address] Scheduled Referrals Name Type Priority Associated Diagnoses [...] excluded by this technique. Antonia Ya PA-C [facility] * (ABNORMAL) Urine Culture - Collect in Lab (08/11/2024 10:18 AM CDT) Pathologist [facility] Urine Culture Growth(A) 08/12/2024 10:20 PM CDT [facility] Urine Culture <10,000 CFU/mL Mixed Bacterial Growth 08/12/2024 10:20 PM [facility] Comment: Mixed Bacterial Growth indicates the specimen is likely contaminated at collection with urogenital and/or fecal satinder. The presence of organisms at <10,000 cfu/ml in culture, UTI unlikely. Urine URINE SPECIMEN COLLECTION, CLEAN CATCH / Unknown Non-blood Collection / Unknown 08/11/2024 10:18 AM CDT 08/11/2024 10:35 AM CDT Antonia Ya PA-C LAB_1 Performing Organization Address City/State/[facility] [place] [address], [facility] * (ABNORMAL) Urine Microscopic Evaluation: Clean Catch (08/11/2024 10:18 AM CDT) Red Blood Cells 0-3 0 - 3 /HPF 10:54 AM CDT [facility] White Blood Cells 6-9(A) 0 - 5 /HPF 08/11/2024 10:54 AM CDT [facility] Bacteria Moderate(A ) None Seen /HPF 08/11/2024 10:54 AM CDT [facility] Squamous Epithelial Cells Moderate(A ) None Seen, Occasional , Few /HPF 08/11/2024 10:54 AM [facility] Mucus Present(A) None Seen /HPF 08/11/2024 10:54 AM [facility] Urine URINE SPECIMEN COLLECTION, CLEAN CATCH / Unknown Non-blood Collection / Unknown 08/11/2024 10:18 AM CDT 08/11/2024 10:35 AM CDT Laurent Grossman [facility] LAB_1 [facility] [address] [place] [address] * (ABNORMAL) Urinalysis Routine, Micro/Culture if Pos: Clean Catch (08/11/2024 10:18 AM CDT) Urine Culture Comment Urinalysis results do not meet criteria for urine culture reflex. 08/11/2024 10:54 AM [facility] Color Yellow 08/11/2024 10:54 AM [facility] Clarity Clear Clear 08/11/2024 10:54 AM [facility] Specific [place] >=1.030(A) 1.005 - 1.030 08/11/2024 10:54 AM [facility] pH 5.5 5.0 - 8.0 08/11/2024 10:54 AM [facility] Protein Negative Neg/Trace 08/11/2024 10:54 AM [facility] Glucose Negative Negative 08/11/2024 10:54 AM [facility] Ketones 15(A) Negative 08/11/2024 10:54 AM [facility] Urobilinogen 0.2 <2.0 08/11/2024 10:54 AM [facility] Bilirubin Negative Negative 08/11/2024 10:54 AM [facility] Blood Negative Neg/Trace 08/11/2024 10:54 AM [facility] Nitrite Negative Negative 08/11/2024 10:54 AM [facility] Leukocyte Esterase Trace(A) Negative 08/11/2024 10:54 AM [facility] Source Clean Catch 08/11/2024 10:54 AM [facility] Urine URINE SPECIMEN COLLECTION, CLEAN CATCH / Unknown Non-blood Collection / Unknown 08/11/2024 10:18 AM CDT 08/11/2024 10:35 AM CDT Laurent [facility] LAB_1 [facility] [address] [place] [address], [facility] documented in this encounter Visit Diagnoses Diagnosis Low back pain, unspecified back pain laterality, unspecified chronicity, unspecified whether sciatica present Right calf pain Right calf pain documented in this encounter Care Teams Reel System Operator Relationship Specialty Start Date End Date Margot Huang PA-C [address] [place] [address] PCP - General Physician Extension Course Coordinator 11/13/16 documented as of this encounter
--- OUTSIDE RECORDS SUMMARY | 2024-09-06 23:01 | XMS_ITS | Encounter Summary ---
Author Organization [employer] Address [address] [address] Care Team Providers Care Boatswain'S Mate Name Role Phone Margot Huang PA-C Primary Care Provider [phone] Reason for Visit * Reason Comments ANXIETY * Consult/Transfer Care (Routine) - New Request Specialty Diagnoses / Procedures Referred By Sukhi t Referred To Contact Diagnoses Low back pain, unspecified back pain laterality, unspecified chronicity, unspecified whether sciatica present Right calf pain Antonia Ya PA-C [address] [place] [address] Referral ID Status Reason Start Date Expiration Date V isits Requested Visits Authorized [id number] New Request 08/11/2024 11/09/2024 1 1 Encounter Details Date Type Department Care Team (Late st Contact Info) Description 08/13/2024 9:00 AM CDT Office Visit [facility] [address] [facility] [address] [place] [address] iJm Esparza PA-C [address] [place], [place] [id number] Anxiety (HRC) (Primary Dx); Radiculopathy of lumbar [...] 2). Right leg pain/numbness, low back pain: [place] related to lumbar radiculopathy. She was seen [...] with sacroiliitis. 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 Review of [...] st Contact Info) Description 09/08/2024 4:30 PM SCREW SUPERVISOR Telemedicine [facility] [address] [place], [place] [phone] Rosa Maria Phillips MD [address] [place] [address] documented as of this encounter Visit Diagnoses Diagnosis Anxiety (HRC)- Primary Anxiety state, unspecified Radiculopathy of lumbar region Thoracic or lumbosacral neuritis or radiculitis, unspecified Sacroiliitis (HRC) Sacroiliitis, not elsewhere classified documented in this encounter Care Teams Boatswain'S Mate Relationship Specialty Start Date End Date Margot Huang PA-C [address] [place] [address] PCP - General Physician Midwife 11/13/16 documented as of this encounter
--- OUTSIDE RECORDS SUMMARY | 2024-09-06 23:01 | XMS_ITS | Encounter Summary ---
Author Organization [employer] Address [address], [place] [address] Care Team Providers Care High Raw Sugar Boiler Name Role Phone Margot Huang PA-C Primary Care Provider [phone] Encounter Details Date Type Department Care Team (Late Contact Info) Description 11/27/2017 Consent for Procedure/Treatme nt [facility] Department INFORMED CONSENT RECORD Social History Tobacco [...] (Late Contact Info) Description 09/08/2024 4:30 PM ENDODONTIST [facility]icine [facility] [address] [place], [place] [address] Rosa Maria Phillips MD [address] [place] [address] documented as of this encounter Visit Diagnoses Not on filedocumented in this encounter Additional Health Concerns Infection Onset Date Last Indicated Resolved Time R/O COVID19 05/20/2020 05/20/2020 05/27/2020 3:18 AM CDT documented as of this encounter Care Teams High Raw Sugar Boiler Relationship Specialty Start Date End Date Margot Huang PA-C [address] [facility] [place] [address] PCP - General Physician Account Collector 11/13/16 documented as of this encounter
--- OUTSIDE RECORDS SUMMARY | 2024-09-06 23:01 | XMS_ITS | Encounter Summary ---
Author Organization [employer] Address [address] [place] [address] Care Team Providers Care Barrel Header Name Role Phone Margot Huang PA-C Primary Care Provider [phone] Encounter Details Date Type Department Care Team (Late Contact Info) Description 10/15/2017 Correspondence External to External, [place] [address] NOTICE OF NON COVERED SERVICE Social History [...] (Late Contact Info) Description 09/08/2024 4:30 PM MASTER CONTROL SUPERVISOR Telemedicine [facility] [address] [place] [address] Rosa Maria Phillips MD [address] [place], [place] [address] documented as of this encounter Visit Diagnoses Not on filedocumented in this encounter Additional Health Concerns Infection Onset Date Last Indicated Resolved Time R/O COVID19 05/20/2020 05/20/2020 05/27/2020 3:18 AM CDT documented as of this encounter Care Teams Barrel Header Relationship Specialty Start Date End Date Margot Huang PA-C [address] [place] [address] PCP - General Physician Senior Marketing Data Analyst 11/13/16 documented as of this encounter
--- OUTSIDE RECORDS SUMMARY | 2024-09-06 23:01 | XMS_ITS | Encounter Summary ---
Author Organization [employer] Address [address] [place] [address] Care Team Providers Care Virtual Customer Assistant Name Role Phone Margot Huang PA-C Primary Care Provider [phone] Reason for Visit * Reason Comments Follow-up, NOS Entered automaticall y based on patient selection in [employer] Encounter Details Date Type Department Care Team (Late st Contact Info) Description 08/26/2024 1:00 PM AUTOMOBILE BODY WORKER [facility] [address] [place], [place] [id number] Roas Maria Phillips MD [address] [place], [place] [id number] Chief Comp: Follow-up, NOS Social History Tobacco [...] to nature of sx. Ok to close. MOBILE BODY WORKER documented in this encounter Plan of Treatment Upcoming Encounters Date Type Department Care Team (Late st Contact Info) Description 09/08/2024 4:30 PM AUTOMOBILE BODY WORKER [facility] [address] [place], [place] [phone] Rosa Maria Phillips MD [address] [place], [place] [id number] documented as of this encounter Visit Diagnoses Not on filedocumented in this encounter Care Teams Virtual Customer Assistant Relationship Specialty Start Date End Date Margot Huang, PAKeenanC [address] [place] [address] PCP - General Physician Re Dye Hand 11/13/16 documented as of this encounter
--- OUTSIDE RECORDS SUMMARY | 2024-09-06 23:02 | XMS_ITS | Encounter Summary ---
Author Organization [employer] Address [address] [place] [address] Care Team Providers Care Jumpbasting Canvas Baster Name Role Phone [facility] [...] on file Legal Sex Female 4:22 AM COOLING ROOM ATTENDANT Gender Identity Not on file Sexual Orientation Not on file documented as of this encounter Plan of Treatment Not on file documented as of this encounter Visit Diagnoses Not on filedocumented in this encounter Care Teams Jumpbasting Canvas Baster Relationship Specialty Start Date End Date Gladys Summers [address] [facility] [place] [address] PCP - General 08/23/24 documented as of this encounter
--- OUTSIDE RECORDS SUMMARY | 2024-09-06 23:02 | XMS_ITS | Encounter Summary ---
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 CING MACHINE OPERATOR documented in this encounter Plan of Treatment Not on file documented as of this encounter Visit Diagnoses Not on filedocumented in this encounter Care Teams Corporation Lawyer Relationship Specialty Start Date End Date [facility], [facility] [address] [place] [address] PCP - General 08/23/24 documented as of this encounter
--- OUTSIDE RECORDS SUMMARY | 2024-09-06 23:02 | XMS_ITS | Clinical Summary ---
Author Organization [facility] Address [address] [place] [address] Care Team Providers Care Silver Wrapper Name Role Phone Clinic, Gladys Gar Primary [...] needed for anxiety. 12 tablet 08/26/2024 Active potassium chloride (KLOR-CON) 20 MEQ packet Take 20 mEq by mouth 2 times daily for 3 days. 6 packet 09/04/2024 Active Active Problems Problem Noted Date Diagnosed [...] Date Type Department Care Team Description 09/04/2024 7:39 PM FURNITURE SANDER - 09/04/2024 11:48 PM [facility] Emergency Dept [address] [place] [address] Juarez Gonzalez MD Palpitations; Hypokalemia; Anxiety Discharge Disposition: Home or Self Care 09/04/2024 Travel 09/01/2024 Documentation Only [facility] [address] [phone] Tracey Whitley Advance Care Planning 08/31/2024 Telephone [facility] - Behavioral Service Line [address] [place] [phone] Kiki Chairez 08/28/2024 3:22 PM FURNITURE SANDER - 08/28/2024 6:57 PM FURNITURE SANDER Emergency [facility] Emergency Dept [address] [place] [address] [phone] Yvon Mack MD Generalized anxiety disorder with panic attacks Discharge Disposition: Home or Self Care 08/28/2024 Travel 08/27/2024 Telephone [facility] - Behavioral Service Line [address] [place] [phone] Caroline Peters 08/26/2024 7:06 PM FURNITURE SANDER - 08/26/2024 11:00 PM [facility] Emergency [facility] Emergency Dept [address] [place] [address] [phone] Juarez Gonzalez MD ROSE MARY (generalized anxiety disorder); Generalized anxiety disorder with panic attacks Discharge Disposition: Home or Self Care 08/26/2024 Travel 08/24/2024 Documentation Only [facility] [address] [place] [address] Tracey Whitley Advance Care Planning 08/23/2024 11:33 AM FURNITURE SANDER - 08/23/2024 4:11 PM FURNITURE SANDER Emergency [facility] Emergency Dept [address] [place] [address] [phone] Myles Murillo MD Anxiety about health; Anxiety [...] on file Legal Sex Female 4:22 AM FURNITURE SANDER Gender Identity Not on file Sexual Orientation Not on file Last Filed Vital Signs Vital Sign Reading Time Taken Comments Blood Pressure 107/74 09/04/2024 11:45 PM FURNITURE SANDER Pulse 64 09/04/2024 11:45 PM FURNITURE SANDER Temperature 37.1 ??C (98.8 ??F) 09/04/2024 11:[address] Respiratory Rate 16 09/04/2024 11:45 PM FURNITURE SANDER Oxygen Saturation 98% 09/04/2024 11:45 PM FURNITURE SANDER Inhaled Oxygen Concentration - - Weight 79.9 kg (176 lb 2.4 oz) 09/04/2024 7:23 P M FURNITURE SANDER Height 167.6 cm (5' 6) 09/04/2024 7:23 PM FURNITURE SANDER Body Mass Index 28.43 09/04/2024 7:23 PM FURNITURE SANDER Plan of Treatment Health Maintenance Due Date [...] 09/08/1996, Additional history exists ADVANCE CARE PLANNING 09/01/2029 09/01/2024 , 08/24/2024, 11/03/2018 RSV VACCINE (1 - 1-dose 75+ series) [...] Name Priority Date/Time Associated Diagnosis Comments XR CHEST 2 VIEWS STAT 09/04/2024 9:47 PM FURNITURE SANDER D DIMER QUANTITATIVE STAT 09/04/2024 8:29 PM FURNITURE SANDER CBC WITH PLATELETS & DIFFERENTIAL STAT 09/04/2024 7:39 PM FURNITURE SANDER MAGNESIUM STAT 09/04/2024 7:39 PM FURNITURE SANDER CBC WITH PLATELETS AND DIFFERENTIAL STAT 09/04/2024 7:39 PM FURNITURE SANDER BASIC METABOLIC PANEL STAT 09/04/2024 7:39 PM FURNITURE SANDER TROPONIN T, HIGH SENSITIVITY STAT 09/04/2024 7:39 PM FURNITURE SANDER EKG 12-LEAD, TRACING ONLY STAT 09/04/2024 7:35 PM FURNITURE SANDER EKG 12-LEAD, TRACING ONLY STAT 08/28/2024 5:30 PM FURNITURE SANDER EKG 12-LEAD, TRACING ONLY STAT 08/23/2024 12:09 PM FURNITURE SANDER HIV ANTIGEN ANTIBODY COMBO Routine 04/16/2018 HEPATITIS [...] Relevant to Health Maintenance Results * XR Chest 2 Views (09/04/2024 9:47 PM FURNITURE SANDER) Anatomical Region Laterality Modality Chest Digital Radiogra phy 09/04/2024 9:47 PM FURNITURE SANDER Impressions 09/04/2024 10:30 PM FURNITURE SANDER IMPRESSION: No evidence of active cardiopulmonary disease. Narrative 09/04/2024 10:30 PM FURNITURE SANDER EXAM: CHEST 2 VIEWS LOCATION: DATE: 09/04/2024 INDICATION: Chest pain. COMPARISON: None. FINDINGS: The lungs are clear. Normal size cardiac silhouette. Procedure Note Khoi Mejia MD - 09/04/2024 EXAM: CHEST 2 VIEWS LOCATION: DATE: 09/04/2024 INDICATION: Chest pain. COMPARISON: None. FINDINGS: The lungs are clear. Normal size cardiac silhouette. IMPRESSION: No evidence of active cardiopulmonary disease. Juarez Gonzalez MD [facility] ORDERABLES Final Result * D dimer quantitative (09/04/2024 8:29 PM FURNITURE SANDER) [facility] D-Dimer Quantitative <0.27 0.00 - 0.50 ug/mL FEU 09/04/2024 8:50 PM FURNITURE SANDER LABORATORY Blood BLOOD SPECIMEN / Unknown Venipuncture / Unknown 09/04/2024 8:29 PM FURNITURE SANDER 09/04/2024 8:33 PM FURNITURE SANDER Narrative LABORATORY - 09/04/2024 8:50 PM FURNITURE SANDER This D-dimer assay is intended for use in conjunction with a clinical pretest probability assessment model to exclude pulmonary embolism (PE) and deep venous thrombosis (DVT) in outpatients suspected of PE or DVT. The cut-off value is 0.50 ug/mL FEU. Juarez Gonzalez MD LAB - BLOOD ORDERABLES Final Result [facility] Acute Care Lab [address] [facility] Lab (1st floor, no room number) [place] [address], [place] * CBC with platelets and differential (09/04/2024 7:39 PM FURNITURE SANDER) [facility] WBC Count 7.5 4.0 - 11.0 10e3/uL 09/04/2024 7:59 PM FURNITURE SANDER RH LABORATORY RBC Count 4.83 3.80 - 5.20 10e6/uL 09/04/2024 7:59 PM FURNITURE SANDER [facility] LABORATORY Hemoglobin 14.0 11.7 - 15.7 g/dL 09/04/2024 7:59 PM FURNITURE SANDER RH LABORATORY Hematocrit 42.2 35.0 - 47.0 % 09/04/2024 7:59 PM FURNITURE SANDER [facility] LABORATORY MCV 87 78 - 100 fL 09/04/2024 7:59 PM FURNITURE SANDER [facility] LABORATORY MCH 29.0 26.5 - 33.0 pg 09/04/2024 7:59 PM FURNITURE SANDER [facility] LABORATORY MCHC 33.2 31.5 - 36.5 g/dL 09/04/2024 7:59 PM FURNITURE SANDER [facility] LAB[facility]ATORY RDW 12.3 10.0 - 15.0 % 09/04/2024 7:59 PM FURNITURE SANDER [facility] LABORATORY Platelet Count 242 150 - 450 10e3/uL 09/04/2024 7:59 PM FURNITURE SANDER [facility] LAB[facility]AT[facility] % Neutrophils 69 % 09/04/2024 7:59 PM FURNITURE SANDER [facility] LAB[facility]AT[facility] % Lymphocytes 23 % 09/04/2024 7:59 PM FURNITURE SANDER [facility] LABORATORY % Monocytes 7 % 09/04/2024 7:59 PM FURNITURE SANDER [facility] LAB[facility]AT[facility] % Eosinophils 1 % 09/04/2024 7:59 PM FURNITURE SANDER [facility] LAB[facility]AT[facility] % Basophils 1 % 09/04/2024 7:59 PM FURNITURE SANDER [facility] LAB[facility]AT[facility] % Immature Granulocytes 0 % 09/04/2024 7:59 PM FURNITURE SANDER [facility] LABORATORY NRBCs per 100 WBC 0 <1 /100 024 7:59 PM FURNITURE SANDER [facility] LABORATORY Absolute Neutrophils 5.2 1.6 - 8.3 10e3/uL 09/04/2024 7:59 PM FURNITURE SANDER [facility] LABORATORY Absolute Lymphocytes 1.7 0.8 - 5.3 10e3/uL 09/04/2024 7:59 PM FURNITURE SANDER [facility] LABORATORY Absolute Monocytes 0.5 0.0 - 1.3 10e3/uL 09/04/2024 7:59 PM FURNITURE SANDER [facility] LABORATORY Absolute Eosinophils 0.1 0.0 - 0.7 10e3/uL 09/04/2024 7:59 PM FURNITURE SANDER [facility] LABORATORY Absolute Basophils 0.0 0.0 - 0.2 10e3/uL 09/04/2024 7:59 PM FURNITURE SANDER [facility] LABORATORY Absolute Immature Granulocytes 0.0 <=0.4 10e3/uL 09/04/2024 7:59 PM FURNITURE SANDER LABORATORY Absolute NRBCs 0.0 10e3/uL 09/04/2024 7:59 PM FURNITURE SANDER LABORATORY Blood STRUCTURE OF LEFT UPPER LIMB / Unknown Venipuncture / Unknown 09/04/2024 7:39 PM FURNITURE SANDER 09/04/2024 7:56 PM FURNITURE SANDER Juarez Gonzalez MD LAB - BLOOD ORDERABLES Final Result Performing Organization Address City/[facility]/ZIP Co de Phone Number [facility] Care Lab [address] Lab (1st floor, no room number) [place] [address], [place] * Troponin T, High Sensitivity (09/04/2024 7:39 PM FURNITURE SANDER) [facility] Troponin T, High Sensitivity <6 <=14 ng/L 09/04/2024 8:23 PM FURNITURE SANDER [facility] LABORATORY Comment: Either a High Sensitivity Troponin T baseline (0 hours) value = 100 ng/L, or an increase in High Sensitivity Troponin T = 7 ng/L at 2 hours compared to 0 hours (2-0 hours), suggests myocardial injury, and urgent clinical attention is required. ?? If the 2-0 hours increase is <7 ng/L, a High Sensitivity Troponin T result above gender-specific reference ranges warrants further evaluation. Recommendations for further evaluation include correlation with clinical decision-making tool (e.g., HEART), a 3rd High Sensitivity Troponin T test 2 hours after the 2nd (a 20% change from baseline would represent concern), admission for observation, close PCC/cardiology follow-up, or urgent outpatient provocative testing. Blood STRUCTURE OF LEFT UPPER LIMB / Unknown Venipuncture / Unknown 09/04/2024 7:39 PM FURNITURE SANDER 09/04/2024 7:56 PM FURNITURE SANDER Juarez Gonzalez MD LAB - BLOOD ORDERABLES Final Result [facility] Acute Care Lab [address] Lab (1st floor, no room number) [place] [address], [place] * Magnesium (09/04/2024 7:39 PM FURNITURE SANDER) Magnesium 2.2 1.7 - 2.3 mg/dL 09/04/2024 8:31 PM FURNITURE SANDER LABORATORY Blood STRUCTURE OF LEFT UPPER LIMB / Unknown Venipuncture / Unknown 09/04/2024 7:39 PM FURNITURE SANDER 09/04/2024 7:56 PM FURNITURE SANDER Juarez Gonzalez MD LAB - BLOOD ORDERABLES Final Result LABORATORY [facility] Acute Care Lab [address] [facility] (1st floor, no room number) [place] [address], [place] * (ABNORMAL) Basic metabolic panel (BMP) (09/04/2024 7:39 PM FURNITURE SANDER) Sodium 139 135 - 145 mmol/L 09/04/2024 8:23 PM [facility] Potassium 3.4 3.4 - 5.3 mmol/L 09/04/2024 8:23 PM [facility] Chloride 104 98 - 107 mmol/L 09/04/2024 8:23 PM [facility] Carbon Dioxide (CO2) 23 22 - 29 mmol/L 09/04/2024 8:23 PM [facility] Anion Gap 12 7 - 15 mmol/L 09/04/2024 8:23 PM [facility] Urea Nitrogen 7.2 6.0 - 20.0 mg/dL 09/04/2024 8:23 PM [facility] Creatinine 0.72 0.51 - 0.95 mg/dL 09/04/2024 8:23 PM [facility] GFR Estimate >90 >60 mL/min/1.7 3m2 09/04/2024 8:23 PM [facility] Comment:eGFR calculated usin g 2020 CKD-EPI equation. Calcium 9.6 8.8 - 10.4 mg/dL 09/04/2024 8:23 PM [facility] Comment:Reference intervals for this test were updated on 05/05/2024 to reflect our healthy population more accurately. There may be differences in the flagging of prior results with similar values performed with this method. Those prior results can be interpreted in the context of the updated reference intervals. Glucose 112(H) 70 - 99 mg/dL 09/04/2024 8:23 PM FURNITURE SANDER LABORATORY Blood STRUCTURE OF LEFT UPPER LIMB / Unknown Venipuncture / Unknown 09/04/2024 7:39 PM FURNITURE SANDER 09/04/2024 7:56 PM FURNITURE SANDER us Juarez Gonzalez MD LAB - BLOOD ORDERABLES Final Result [facility] LABORATORY [facility] Acute Care Lab [address] Lab (1st floor, no room number) [place] [address] * EKG 12-lead, tracing only (08/28/2024 5:30 PM FURNITURE SANDER) Only the most recent of2 resultswithin the time period is included. Systolic Blood Pressure mmHg RADIOLOGY RESULTS Diastolic Blood Pressure mmHg RADIOLOGY RESULTS Ventricular Rate 64 BPM RAD IOLOGY RESULTS Atrial Rate 64 BPM RADIOLOG Y RESULTS HI Interval 130 ms RADIOLOG Y RESULTS QRS Duration 80 ms RADIOLO GY RESULTS QT 430 ms RADIOLOGY RESULTS QTc 443 ms RADIOLOGY RESULTS P [place] 33 degrees RADIOLOGY RESULTS R AXIS 69 degrees RADIOLOGY RESULTS T [place] 38 degrees RADIOLOGY RESULTS Interpretation ECG Sinus rhythm Normal ECG When compared with ECG of 23-Aug-2024 12:09, No significant change was found Confirmed by - EMERGENCY ROOM, PHYSICIAN ([id number]), editor newspaper ILEANA KYLE ([id number]) on 08/31/2024 7:21:29 AM RADIOLOGY RESULTS 08/28/2024 5:30 PM FURNITURE SANDER 08/31/2024 7:21 AM FURNITURE SANDER us Yvon Mack MD ECG ORDERABLES Edited Result - Final RADIOLOGY RESULTS * HIV Antigen Antibody Combo (04/16/2018) HIV Antigen Antibody Combo negative Blood specimen (specimen) us Patient Reported LAB - BLOOD ORDERABLES Final Re sult * Hepatitis C antibody (08/18/2014 9:29 AM CDT) Hepatitis C Antibody Negative NEG [facility] Blood specimen (specimen) 08/18/2014 9:29 AM CDT 08/18/2014 9:32 AM CDT us Wiliam Lagunas PA-C LAB - BLOOD ORDERABL ES Final Result [facility] [address] [place], [place] [id number] [place] [address] * PAP imaged thin layer, screen (08/18/2014 12:00 AM CDT) PAP NIL ASH Zaldivar Report Patient Name: TURNER TIDWELL MR#: [id number] Specimen #: [id number] Collected: 08/18/2014 Received: 08/19/2014 Reported: 08/24/2014 12:44 [...] Vieyra ( ASCP) Processed and screened at [facility], [facility] CLINICAL HISTORY: LMP: 08/09/2014 Previous normal pap Date of Last Pap: 04/10/2012 Previous abnormal pap: lgsil, Papanicolaou Test Limitations: ??Cervical cytology is a screening test with limited sensitivity; regular screening is critical for cancer prevention; Pap tests are primarily effective for the diagnosis/preventi on of squamous cell carcinoma, not adenocarcinomas or other cancers. TESTING LAB LOCATION: [facility] [address] [place], [place] ??[address] COLLECTION SITE: Client: ??[facility] Location: [facility] (R) COPATH Cytologic material (specimen) 08/18/2014 08/19/2014 11:48 AM CDT Wiliam Lagunas PA-C LAB - OPTIME CLINICA L SPECIMEN Final Result COPATH from Last 3 Months or Most Recently Relevant to Health Maintenance Care Teams Silver Wrapper Relationship Specialty Start Date End Date Clinic, [facility]ys Jamison [place] [address] [place] [address] PCP - General 08/23/24
--- OUTSIDE RECORDS SUMMARY | 2024-09-06 23:02 | XMS_ITS | Encounter Summary ---
Author Organization [facility] Address [address] [place] [address] Care Team Providers Care Guncotton Packer Name Role Phone Clinic, [facility]ys Gar Primary Care Pr ovider Reason for Visit * Reason Comments Anxiety Encounter Details Date Type Department Care Team ([facility] st Contact Info) Description 08/28/2024 3:22 PM MINERAL ECONOMIST - 08/28/2024 6:57 PM MINERAL ECONOMIST Emergency [facility] Emergency Dept [address] [place] [address] [phone] Yvon Mack MD [address] [place] [address] [place] [phone] Generalized anxiety disorder with panic attacks Discharge [...] on file Legal Sex Female 4:22 AM MINERAL ECONOMIST Gender Identity Not on file Sexual Orientation Not on file documented as of this encounter Last Filed Vital Signs Vital Sign Reading Time Taken Comments Blood Pressure 126/83 08/28/2024 6:52 PM MINERAL ECONOMIST Pulse 76 08/28/2024 6:52 PM MINERAL ECONOMIST Temperature 36.9 ??C (98.5 ??F) 08/28/2024 3:26 PM CS T Respiratory Rate 18 08/28/2024 3:26 PM MINERAL ECONOMIST Oxygen Saturation 99% 08/28/2024 6:53 PM MINERAL ECONOMIST Inhaled Oxygen Concentration - - Weight 80.3 kg (177 lb) 08/28/2024 3:26 PM MINERAL ECONOMIST Height 167.6 cm (5' 6) 08/28/2024 3:26 PM MINERAL ECONOMIST Body Mass Index 28.57 08/28/2024 3:26 PM MINERAL ECONOMIST documented in this encounter Discharge Instructions * Discharge Instructions* Chaim Mckinney S, AUTO PORTER - 08/28/2024 6:42 PM MINERAL ECONOMIST Cable Way Operator encourage Pt to take her medications consistently as prescribed and keep all of her scheduled appointments with her outpatient service providers. Cable Way Operator recommended Pt to continue follow up with her new current outpatient therapy service to improve coping skills. Cable Way Operator recommended Pt to engage in new outpatient psychiatry for medication management as well as IOP Day treatment. However, Ptshared she has no health insurance as she was applying for [facility] insurance. DEC coordinator will contact Pt within next 1 or 2 business days to ensure coordination of care and provide assistance with appointments. [facility] specializing OCD Treatment Virtual support group available [place] in [place] invites anyone in the local community to attend a virtual Parent and Caregiver Support Group for those who have a loved one struggling with OCD or anxiety. Meets the third Saturday of each month, 5 to 6 pm. Please RSVP to if you plan to attend. [email or web address] [phone] [address] [facility] [place] [address] Below is a list of FREE Mental Health Options in the [facility] Area: [facility] ([facility] Serves those in emotional crisis with 24-hour, hyehq-pcl-m-week crisis counseling, assessment, referral, and medication management. Suicidal: [phone] Consultation: [phone] [place] [address], 13/05 [facility] [phone] Serves those in need of free outpatient mental health care Hours: Mon, Sat, Fri 1-3pm; Sat- 6:30-8:30pm [facility] [address] [place] [address] RAL ECONOMIST documented in this encounter Medications at Time [...] Pronouns: Race: White Ethnicity: Not or Language: Algerian Patient was assessed: Virtual: StyleQ Crisis Assessment Start Date: 08/28/24 Crisis Assessment Start Time: 1735 Crisis Assessment Stop Time: 1811 Patient location: [facility] EMERGENCY DEPT Referral Data and [...] was in the process of applying for [employer] insurance. Pt reported she was prescribed with [...] information name, relationship, phone number: Beth Gibson [phone] What happened today: Beth reported Pt was [...] planning: yes Additional collateral information: Risk Assessment [place] Suicide Severity Rating Scale Full Clinical Version: [...] No Preparatory Acts or Behavior (Lifetime): No [place] Suicide Severity Rating Scale Recent: Suicidal Ideation [...] was in the process of applying for [facility] insurance. Pt reported she was prescribed [...] the patient: 36 min CPT code(s) utilized: 21111 - Psychotherapy for Crisis - 60 (30-74*) min PHILL Linares, Psychotherapist DEC - Triage & Transition Services Callback: [phone] RAL ECONOMIST documented in this encounter ED Notes * [...] Atenolol Lorazepam Rizatriptan Surgical History C section Nuclear Power Reactor Operator surgery [place] tooth removal Physical Exam Patient Vitals for [...] Pressure Ventricular Rate 64 Atrial Rate 64 NM Interval 130 QRS Duration 80 QT 430 QTc 443 P [place] 33 R AXIS 69 T [place] 38 Interpretation ECG Sinus rhythm No significant [...] Documentation None Medical Decision Making / Diagnosis [facility] Diagnoses: None MIPS None MDM Kacey Hines [...] and the provider's statements to me. Yvon Mack MD 08/28/242242 RAL ECONOMIST * Kaitlin Goldberg RN - 08/28/2024 3:44 PM CST Pt searched with security purse locked up pt in street clothes RAL ECONOMIST * Kaitlin Goldberg RN - 08/28/2024 3:27 PM CST Pt arrives via [facility] with feelings of being over whelmed [...] WDL WDL Cognitive/Neuro/Behavioral WDL Cognitive/Neuro/Behavioral WDL WDL [place] Coma Scale Best Eye Response 4-->(E4) spontaneous Best Motor Response 6-->(M6) obeys commands Best Verbal Response 5-->(V5) oriented [place] Coma Scale Score 15 RAL ECONOMIST * Joyce Santo RN - 08/28/2024 3:22 PM CST Bed: [facility] Expected date: Expected time: Means of arrival: Comments: [place] [address] RAL ECONOMIST documented in this encounter Plan of Treatment Not on file documented as of this encounter Procedures Procedure Name Priority Date/Time Associated Diagnosis Comments EKG 12-LEAD, TRACING ONLY STAT 08/28/2024 5:30 PM MINERAL ECONOMIST documented in this encounter Results * EKG 12-lead, tracing only (08/28/2024 5:30 PM MINERAL ECONOMIST) Systolic Blood Pressure mmHg RADIOLOGY RESULTS Diastolic Blood Pressure mmHg RADIOLOGY RESULTS Ventricular Rate 64 BPM RAD IOLOGY RESULTS Atrial Rate 64 BPM RADIOLOG Y RESULTS NM Interval 130 ms RADIOLOG Y RESULTS QRS Duration 80 ms RADIOLO GY RESULTS QT 430 ms RADIOLOGY RESULTS QTc 443 ms RADIOLOGY RESULTS P [place] 33 degrees RADIOLOGY RESULTS R AXIS 69 degrees RADIOLOGY RESULTS T [place] 38 degrees RADIOLOGY RESULTS Interpretation ECG Sinus rhythm Normal ECG When compared with ECG of 23-Aug-2024 12:09, No significant change was found Confirmed by - EMERGENCY ROOM, PHYSICIAN ([id number]), supervising editor news reel ILEANA KYLE ([id number]) on 08/31/2024 7:21:29 AM RADIOLOGY RESULTS 08/28/2024 5:30 PM MINERAL ECONOMIST 08/31/2024 7:21 AM MINERAL ECONOMIST us Yvon Mack MD ECG ORDERABLES Edited Result - Final RADIOLOGY RESULTS documented in this encounter Visit Diagnoses Diagnosis Generalized anxiety disorder with panic attacks documented in this encounter Care Teams Guncotton Packer Relationship Specialty Start Date End Date Clinic, Gladys Gar [address] [place] [address] PCP - General 08/23/24 documented as of this encounter
--- OUTSIDE RECORDS SUMMARY | 2024-09-06 23:02 | XMS_ITS | Encounter Summary ---
Author Organization [facility] Address [address] [place] [address] Care Team Providers Care Study Director Name Role Phone Gladys Summers Primary Care [...] on file Legal Sex Female 4:22 AM BARTENDER HELPER Gender Identity Not on file Sexual Orientation Not on file documented as of this encounter Plan of Treatment Not on file documented as of this encounter Visit Diagnoses Not on filedocumented in this encounter Care Teams Study Director Relationship Specialty Start Date End Date Gladys Summers [address] [facility] [place] [address] PCP - General 08/23/24 documented as of this encounter
--- OUTSIDE RECORDS SUMMARY | 2024-09-06 23:02 | XMS_ITS | Encounter Summary ---
Author Organization [facility] Address [address] [place] [address] Care Team Providers Care Contract Accountant Name Role Phone Gladys Summers Primary Care Pr ovider Encounter Details Date Type Department Care Team (Late st Contact Info) Description 08/31/2024 Telephone [facility] Services - Behavioral Service Line [address] [place] [phone] Kiki Chairez Social History Tobacco Use [...] on file Legal Sex Female 4:22 AM EVAPORATOR OPERATOR MOLASSES Gender Identity Not on file Sexual Orientation Not on file documented as of this encounter Miscellaneous Notes * Telephone Encounter - Kiki Chairez - 08/31/2024 4:54 PM CST This newspaper writer HARPREET with callback contact. ORATOR OPERATOR MOLASSES documented in this encounter Plan of Treatment Not on file documented as of this encounter Visit Diagnoses Not on filedocumented in this encounter Care Teams Contract Accountant Relationship Specialty Start Date End Date Clinic, Gladys Gar [address] [place] [address] PCP - General 08/23/24 documented as of this encounter
--- OUTSIDE RECORDS SUMMARY | 2024-09-06 23:02 | XMS_ITS | Encounter Summary ---
Author Organization [place] Address [address] [place] [id number] Care Team Providers Care Professor Of Philosophy Name Role Phone Clinic, [facility] Reason for Referral * CV Cardio consult (Routine: Next available opening) - Pending Review Specialty Diagnoses / Procedures Referred By Contact Referred To Contact Cardiovascular Disease Diagnoses Palpitations Hypokalemia Juarez Gonzalez MD [facility] [address] [facility] [address] [address] Phone: tel: fax: Referral ID Status Reason Start Date Expiration Date V isits Requested Visits Authorized [id number] Pending Review 09/04/2024 09/04/2025 1 1 Question Answer Reason for Consult: General Cardiology Patient Scheduling Instructions: [facility] will call you to coordinate your care as prescribed by your provider. If you don't hear from a technical support representative within 2 business days, please call [phone]. Comments Please be aware that coverage of these services is subject to the terms and limitations of your health insurance plan. Call member services at your health plan with any benefit or coverage questions. [facility] will call you to coordinate your care as prescribed by your provider. If you don't hear from a technical support representative within 2 business days, please call [phone]. AVEMENT COUNSELOR Reason for Visit * Reason Comments Shortness of Breath Tachycardia Encounter Details Date Type Department Care Team (Late st Contact Info) Description 09/04/2024 7:39 PM BEREAVEMENT COUNSELOR - 09/04/2024 11:48 PM BEREAVEMENT COUNSELOR Emergency [facility] Emergency Dept [address] [place] [address] Juarez Gonzalez MD [facility] [address] [place] [address] Palpitations; Hypokalemia; Anxiety Discharge Disposition: Home or Self Care Social [...] on file Legal Sex Female 4:22 AM BEREAVEMENT COUNSELOR Gender Identity Not on file Sexual Orientation Not on file documented as of this encounter Last Filed Vital Signs Vital Sign Reading Time Taken Comments Blood Pressure 107/74 09/04/2024 11:45 PM BEREAVEMENT COUNSELOR Pulse 64 09/04/2024 11:45 PM BEREAVEMENT COUNSELOR Temperature 37.1 ??C (98.8 ??F) 09/04/2024 11:[address] Respiratory Rate 16 09/04/2024 11:45 PM BEREAVEMENT COUNSELOR Oxygen Saturation 98% 09/04/2024 11:45 PM BEREAVEMENT COUNSELOR Inhaled Oxygen Concentration - - Weight 79.9 kg (176 lb 2.4 oz) 09/04/2024 7:23 P M BEREAVEMENT COUNSELOR Height 167.6 cm (5' 6) 09/04/2024 7:23 PM BEREAVEMENT COUNSELOR Body Mass Index 28.43 09/04/2024 7:23 PM BEREAVEMENT COUNSELOR documented in this encounter Discharge Instructions * Discharge Instructions* Juarez Gonzalez MD - 09/04/2024 11:04 PM BEREAVEMENT COUNSELOR Return to ER immediately if you develop: worsening symptoms, Fever > 101, persistent nausea or vomiting OR you have any other concerns about your health. AVEMENT COUNSELOR documented in this encounter Medications at Time [...] as needed for pain 20 tablet 11/08/2018 potassium chloride (KLOR-CON) 20 MEQ packet Take 20 mEq by mouth 2 times daily for 3 days. 6 packet 09/04/2024 09/07/2024 Vit-Fe Fumarate-FA (PNV PLUS MULTIVITAMIN) 27-1 MG TABS per tablet Take 1 tablet by mouth daily documented as of this encounter ED Notes * Jillian Travis RN - 09/04/2024 11:47 PM CST Pt discharged home by expert medical writer. Pt looks well. Given AVS and all VSS. Pt left amb with good gait to exit. Agreeable to plan of care. AVEMENT COUNSELOR * Juarez Gonzalez MD - 09/04/2024 7:45 PM CST Emergency Department Note History of Present Illness Chief Complaint Shortness of Breath and Tachycardia HPI Kacey Hines is a 34 year old female with a history of hypertension, ROSE MARY, and bipolar disorderwho presents from urgent care for evaluation of shortness of breath and tachycardia. The patient states that she was at urgent care earlier today and was then sent to the emergency department for evaluation of her EKG that showed T wave inversion. Reports that her anxiety has not been controlled well recently though she is feeling slightly better on evaluation in the emergency department. Notes that she is checking her heart rate very frequently but that it has been within normal limits. Adds that she has not taken hydroxyzine in a while because it does not help her, but she did take lorazepam this morning. She is not eating or drinking well. Denies fever, cough, and changes to her urine and bowels. Independent Historian None Review of External Notes I reviewed urgent care note as well as recent emergency department visit notes. Past Medical History Medical History and Problem List Depression Hypertension PTSD Bipolar affective disorder ROSE MARY Gestational hypertension Gallstones Migraine Medications Lorazepam Oxycodone Omeprazole Atenolol Hydroxyzine Propranolol Rizatriptan Surgical History section D&C [place] teeth Physical Exam Patient Vitals for the past 24 hrs: BP Temp Temp src Pulse Resp SpO2 Height Weight 09/04/24 1923 (!) 145/95 98.8 ??F (37.1 ??C) Temporal 120 18 97 % 1.676 m (5' 6) 79.9 kg (176 lb 2.4 oz) Physical Exam HENT: mmm, no rhinorrhea Eyes: periorbital tissues and sclera normal Neck: supple, no abnormal swelling Lungs: CTAB, no resp distress CV: rrr, no m/r/g, ppi Abd: soft, nontender, nondistended, no rebound/masses/guarding/hsm Ext: no peripheral edema Skin: warm, dry, well perfused, no rashes/bruising/lesions on exposed skin Neuro: alert, MAEE, no gross motor or sensory deficits, gait stable Psych: Normal mood, normal affect Diagnostics Lab Results Labs Ordered and Resulted from Time of ED Arrival to Time of ED Departure BASIC METABOLIC PANEL - Abnormal Result Value Sodium 139 Potassium 3.4 Chloride 104 Carbon Dioxide (CO2) 23 Anion Gap 12 Urea Nitrogen 7.2 Creatinine 0.72 GFR Estimate >90 Calcium 9.6 Glucose 112 (*) TROPONIN T, HIGH SENSITIVITY - Normal Troponin T, High Sensitivity <6 MAGNESIUM - Normal Magnesium 2.2 D DIMER QUANTITATIVE - Normal D-Dimer Quantitative <0.27 CBC WITH PLATELETS AND DIFFERENTIAL WBC Count 7.5 RBC Count 4.83 Hemoglobin 14.0 Hematocrit 42.2 MCV 87 MCH 29.0 MCHC 33.2 RDW 12.3 Platelet Count 242 % Neutrophils 69 % Lymphocytes 23 % Monocytes 7 % Eosinophils 1 % Basophils 1 % Immature Granulocytes 0 NRBCs per 100 WBC 0 Absolute Neutrophils 5.2 Absolute Lymphocytes 1.7 Absolute Monocytes 0.5 Absolute Eosinophils 0.1 Absolute Basophils 0.0 Absolute Immature Granulocytes 0.0 Absolute NRBCs 0.0 Imaging XR Chest 2 Views Final Result IMPRESSION: No evidence of active cardiopulmonary disease. EKG ECG taken at 1735, ECG read at 1739 Sinus rhythm with sinus arrhythmia ST & T wave abnormality, consider inferior ischemia ST & T wave abnormality, consider anterior ischemia Rate 76 bpm. WA interval 124 ms. QRS duration 86 ms. QT/QTc 362/407 ms. P-R-T axes 45 81 -17. Independent Interpretation Chest Radiograph without Pneumothorax, Lobar opacity, nor concerning cardiomegaly or pulm edema/pleural effusion ED Course Medications Administered Medications lactated ringers BOLUS 1,000 mL (0 mLs Intravenous Stopped 09/04/242338) potassium chloride sri ER (KLOR-CON M20) CR tablet 40 mEq (40 mEq Oral $Given 09/04/242042) Procedures Procedures Discussion of Management None ED Course ED Course as of 09/04/242345Sep 04, 20242008 I obtained history and examined the patient as noted above. 2208 Chest Radiograph without Pneumothorax, Lobar opacity, nor concerning cardiomegaly or pulm edema/pleural effusion 2317 I rechecked and updated the patient. Additional Documentation None Medical Decision Making / Diagnosis [facility] Diagnoses: None MIPS None MDM Kacey Hines is a 34 year old female with ongoing palpitations, atypical chest pain and shortness of breath recently seen multiple times related to anxiety with component of obsessive-compulsivedisorder. In urgent care earlier today and the ECG showed T wave inversion was not evident previously. Repeat EKG here here as shown above. Blood test show potassium towards the low end of normal. Heis enough to replace his. Magnesium not significantly low. Importantly troponin undetectable and D-dimer negative chest radiograph unremarkable. I think this risk stratified her low enough such that we do not need hospitalization. No suspicion clinically for an aortic dissection. Also no clinical suspicion for a pulmonary embolism given the low D-dimer. The troponin being undetectable makes an occlusive coronary process very unlikely. We talked about the nonspecific nature of the T wave inversions. Given we see no cardiovascular or pulmonary emergency at this time I think she is safe and stabl e for discharge home with continued follow-up in the outpatient setting. She was comfortable and agreeable with that plan. Will give a couple more days of potassium supplementation. Disposition The patient was discharged. Diagnosis ICD-10-CM 1. Palpitations R00.2 2. Hypokalemia E87.6 3. Anxiety F41.9 Discharge Medications New Prescriptions POTASSIUM CHLORIDE (KLOR-CON) 20 MEQ PACKET Take 20 mEq by mouth 2 times daily for 3 days. Scribe Disclosure: I, Joyce Tapia, am serving as a scribe at 7:45 PM on 09/04/2024 to document services personally performed by Juarez Gonzalez MD based on my observations and the provider's statements tome. Juarez Gonzalez MD 09/04/24 4240 AVEMENT COUNSELOR * Jillian Tuttle RN - 09/04/2024 7:26 PM CST Patient arrives after being sent over from urgent care. Patient was noted to be tachycardic in the 115-120's while there and also had and abnormal EKG which showed T wave inversion. Pt endorses shortness of breath and anxiety. A&Ox4, ABC's intact. Triage Assessment (Adult) Row Name 09/04/241924 Respiratory WDL Respiratory WDL WDL Skin Circulation/Temperature WDL Skin Circulation/Temperature WDL WDL Cardiac WDL Cardiac WDL X Peripheral/Neurovascular WDL Peripheral Neurovascular WDL WDL Cognitive/Neuro/Behavioral WDL Cognitive/Neuro/Behavioral WDL WDL AVEMENT COUNSELOR documented in this encounter Plan of Treatment Pending Results Name Type Priority Associated Diagnoses Date /Time EKG 12 lead EKG STAT 09/04/2024 7: 35 PM BEREAVEMENT COUNSELOR Scheduled Referrals Name Type Priority Associated Diagnoses Orde r Schedule Adult Cardiology Eval Light Cleaner Referral Referral Routine: Next available opening Palpitations Hypokalemia Expected: 09/04/2024 (Approximate), Expires: 09/04/2025 documented as of this encounter Procedures Procedure Name Priority Date/Time Associated Diagnosis Comments XR CHEST 2 VIEWS STAT 09/04/2024 9:47 PM BEREAVEMENT COUNSELOR D DIMER QUANTITATIVE STAT 09/04/2024 8:29 PM BEREAVEMENT COUNSELOR CBC WITH PLATELETS AND DIFFERENTIAL STAT 09/04/2024 7:39 PM BEREAVEMENT COUNSELOR TROPONIN T, HIGH SENSITIVITY STAT 09/04/2024 7:39 PM BEREAVEMENT COUNSELOR CBC WITH PLATELETS & DIFFERENTIAL STAT 09/04/2024 7:39 PM BEREAVEMENT COUNSELOR MAGNESIUM STAT 09/04/2024 7:39 PM BEREAVEMENT COUNSELOR BASIC METABOLIC PANEL STAT 09/04/2024 7:39 PM BEREAVEMENT COUNSELOR EKG 12-LEAD, TRACING ONLY STAT 09/04/2024 7:35 PM BEREAVEMENT COUNSELOR documented in this encounter Results * XR Chest 2 Views (09/04/2024 9:47 PM BEREAVEMENT COUNSELOR) Anatomical Region Laterality Modality Chest Digital Radiogra phy 09/04/2024 9:47 PM BEREAVEMENT COUNSELOR Impressions 09/04/2024 10:30 PM BEREAVEMENT COUNSELOR IMPRESSION: No evidence of active cardiopulmonary disease. Narrative 09/04/2024 10:30 PM BEREAVEMENT COUNSELOR EXAM: CHEST 2 VIEWS LOCATION: [facility] DATE: 09/04/2024 INDICATION: Chest pain. COMPARISON: None. FINDINGS: The lungs are clear. Normal size cardiac silhouette. Procedure Note Khoi Mejia MD - 09/04/2024 EXAM: CHEST 2 VIEWS LOCATION: [facility] DATE: 09/04/2024 INDICATION: Chest pain. COMPARISON: None. FINDINGS: The lungs are clear. Normal size cardiac silhouette. IMPRESSION: No evidence of active cardiopulmonary disease. us Juarez Gonzalez MD IMG DIAGNOSTIC IMAGING ORDERABLES Final Result * D dimer quantitative (09/04/2024 8:29 PM BEREAVEMENT COUNSELOR) D-Dimer Quantitative <0.27 0.00 - 0.50 ug/mL FEU 09/04/2024 8:50 PM BEREAVEMENT COUNSELOR [facility] Blood BLOOD SPECIMEN / Unknown Venipuncture / Unknown 09/04/2024 8:29 PM BEREAVEMENT COUNSELOR 09/04/2024 8:33 PM BEREAVEMENT COUNSELOR Narrative [facility] - 09/04/2024 8:50 PM BEREAVEMENT COUNSELOR This D-dimer assay is intended for use in conjunction with a clinical pretest probability assessment model to exclude pulmonary embolism (PE) and deep venous thrombosis (DVT) in outpatients suspected of PE or DVT. The cut-off value is 0.50 ug/mL FEU. Juarez Gonzalez MD LAB - BLOOD ORDERABLES Final Result Performing Organization Address City/[facility]/ZIP Co de Phone Number [facility] [address] [facility] (1st floor, no room number) [place] [address] * Magnesium (09/04/2024 7:39 PM BEREAVEMENT COUNSELOR) [facility] Magnesium 2.2 1.7 - 2.3 mg/dL 09/04/2024 8:31 PM BEREAVEMENT COUNSELOR [facility] Blood STRUCTURE OF LEFT UPPER LIMB / Unknown Venipuncture / Unknown 09/04/2024 7:39 PM BEREAVEMENT COUNSELOR 09/04/2024 7:56 PM BEREAVEMENT COUNSELOR Juarez Gonzalez MD LAB - BLOOD ORDERABLES Final Result Performing Organization Address [facility] Co de Phone Number [facility] [address] Lab (1st floor, no room number) [place] [address] * CBC with platelets and differential (09/04/2024 7:39 PM BEREAVEMENT COUNSELOR) [facility] WBC Count 7.5 4.0 - 11.0 10e3/uL 09/04/2024 7:59 PM BEREAVEMENT COUNSELOR [facility] RBC Count 4.83 3.80 - 5.20 10e6/uL 09/04/2024 7:59 PM BEREAVEMENT COUNSELOR [facility] Hemoglobin 14.0 11.7 - 15.7 g/dL 09/04/2024 7:59 PM BEREAVEMENT COUNSELOR [facility] Hematocrit 42.2 35.0 - 47.0 % 09/04/2024 7:59 PM BEREAVEMENT COUNSELOR [facility] MCV 87 78 - 100 fL 09/04/2024 7:59 PM BEREAVEMENT COUNSELOR [facility] MCH 29.0 26.5 - 33.0 pg 09/04/2024 7:59 PM BEREAVEMENT COUNSELOR [facility] MCHC 33.2 31.5 - 36.5 g/dL 09/04/2024 7:59 PM BEREAVEMENT COUNSELOR [facility] RDW 12.3 10.0 - 15.0 % 09/04/2024 7:59 PM BEREAVEMENT COUNSELOR [facility] Platelet Count 242 150 - 450 10e3/uL 09/04/2024 7:59 PM BEREAVEMENT COUNSELOR [facility] % Neutrophils 69 % 09/04/2024 7:59 PM BEREAVEMENT COUNSELOR [facility] % Lymphocytes 23 % 09/04/2024 7:59 PM BEREAVEMENT COUNSELOR [facility] % Monocytes 7 % 09/04/2024 7:59 PM BEREAVEMENT COUNSELOR [facility] % Eosinophils 1 % 09/04/2024 7:59 PM BEREAVEMENT COUNSELOR [facility] % Basophils 1 % 09/04/2024 7:59 PM BEREAVEMENT COUNSELOR [facility] % Immature Granulocytes 0 % 09/04/2024 7:59 PM BEREAVEMENT COUNSELOR [facility] NRBCs per 100 WBC 0 <1 /100 024 7:59 PM BEREAVEMENT COUNSELOR [facility] Absolute Neutrophils 5.2 1.6 - 8.3 10e3/uL 09/04/2024 7:59 PM BEREAVEMENT COUNSELOR [facility] Absolute Lymphocytes 1.7 0.8 - 5.3 10e3/uL 09/04/2024 7:59 PM BEREAVEMENT COUNSELOR [facility] Absolute Monocytes 0.5 0.0 - 1.3 10e3/uL 09/04/2024 7:59 PM BEREAVEMENT COUNSELOR [facility] Absolute Eosinophils 0.1 0.0 - 0.7 10e3/uL 09/04/2024 7:59 PM BEREAVEMENT COUNSELOR [facility] Absolute Basophils 0.0 0.0 - 0.2 10e3/uL 09/04/2024 7:59 PM BEREAVEMENT COUNSELOR [facility] Absolute Immature Granulocytes 0.0 <=0.4 10e3/uL 09/04/2024 7:59 PM BEREAVEMENT COUNSELOR [facility] Absolute NRBCs 0.0 10e3/uL 09/04/2024 7:59 PM BEREAVEMENT COUNSELOR [facility] Blood STRUCTURE OF LEFT UPPER LIMB / Unknown Venipuncture / Unknown 09/04/2024 7:39 PM BEREAVEMENT COUNSELOR 09/04/2024 7:56 PM BEREAVEMENT COUNSELOR us Juarez Gonzalez MD LAB - BLOOD ORDERABLES Final Result [facility] [address] Lab (1st floor, no room number) [place] [address], [facility] * (ABNORMAL) Basic metabolic panel (BMP) (09/04/2024 7:39 PM BEREAVEMENT COUNSELOR) Sodium 139 135 - 145 mmol/L 09/04/2024 8:23 PM BEREAVEMENT COUNSELOR LABORATORY Potassium 3.4 3.4 - 5.3 mmol/L 09/04/2024 8:23 PM BEREAVEMENT COUNSELOR LABORATORY Chloride 104 98 - 107 mmol/L 09/04/2024 8:23 PM BEREAVEMENT COUNSELOR LABORATORY Carbon Dioxide (CO2) 23 22 - 29 mmol/L 09/04/2024 8:23 PM BEREAVEMENT COUNSELOR LABORATORY Anion Gap 12 7 - 15 mmol/L 09/04/2024 8:23 PM BEREAVEMENT COUNSELOR LABORATORY Urea Nitrogen 7.2 6.0 - 20.0 mg/dL 09/04/2024 8:23 PM BEREAVEMENT COUNSELOR LABORATORY Creatinine 0.72 0.51 - 0.95 mg/dL 09/04/2024 8:23 PM BEREAVEMENT COUNSELOR LABORATORY GFR Estimate >90 >60 mL/min/1.7 3m2 09/04/2024 8:23 PM BEREAVEMENT COUNSELOR LABORATORY Comment:eGFR calculated usin 2020 CKD-EPI equation. Calcium 9.6 8.8 - 10.4 mg/dL 09/04/2024 8:23 PM BEREAVEMENT COUNSELOR LABORATORY Comment:Reference intervals for this test were updated on 05/05/2024 to reflect our healthy population more accurately. There may be differences in the flagging of prior results with similar values performed with this method. Those prior results can be interpreted in the context of the updated reference intervals. Glucose 112(H) 70 - 99 mg/dL 09/04/2024 8:23 PM BEREAVEMENT COUNSELOR LABORATORY Blood STRUCTURE OF LEFT UPPER LIMB / Unknown Venipuncture / Unknown 09/04/2024 7:39 PM BEREAVEMENT COUNSELOR 09/04/2024 7:56 PM BEREAVEMENT COUNSELOR us Juarez Gonzalez MD LAB - BLOOD ORDERABLES Final Result LABORATORY [facility] [address] Lab (1st floor, no room number) [place] [address], [facility] * Troponin T, High Sensitivity (09/04/2024 7:39 PM BEREAVEMENT COUNSELOR) Troponin T, High Sensitivity <6 <=14 ng/L 09/04/2024 8:23 PM BEREAVEMENT COUNSELOR LABORATORY Comment: Either a High Sensitivity Troponin [...] Unknown Venipuncture / Unknown 09/04/2024 7:39 PM BEREAVEMENT COUNSELOR 09/04/2024 7:56 PM BEREAVEMENT COUNSELOR us Juarez Gonzalez MD LAB - BLOOD ORDERABLES Final Result [facility] [address] Lab (1st floor, no room number) [place] [address], [facility] documented in this encounter Visit Diagnoses Diagnosis Palpitations Hypokalemia Hypopotassemia Anxiety Anxiety state, unspecified documented in this encounter Administered Medications Inactive Administered Medications - up to 3 most recent administrations Medication Order MAR Action Action Date Dose Rate Site lactated ringers BOLUS 1,000 mL Intravenous, 1,000 mL, ONCE, at 1,000 mL/hr, Administer over 1 Hours, On Sat09/04/24 at 2015, For 1 dose $New Bag 09/04/2024 8:29 PM BEREAVEMENT COUNSELOR 1,000 mLs 1000 mL/hr potassium chloride sri ER (KLOR-CON M20) CR tablet 40 mEq 40 mEq, Oral, ONCE, On Sat09/04/24 at 2029, For 1 dose, DO NOT CRUSH $Given 09/04/2024 8:43 PM BEREAVEMENT COUNSELOR 40 mEq documented in this encounter Active and Recently Administered Medications Times are shown in BEREAVEMENT COUNSELOR. Scheduled Medication Order 09/02/2024 09/03/2024 09/04/2024 lactated ringers BOLUS 1,000 mL (COMPLETED) Intravenous, 1,000 mL, ONCE, at 1,000 mL/hr, Administer over 1 Hours, On Sat09/04/24 at 2014, For 1 dose 2028 ($New Bag - Pro vider: Jillian Travis RN)2338 (Stopped - Provider: Jillian Travis RN) potassium chloride sri ER (KLOR-CON M20) CR tablet 40 mEq (COMPLETED) 40 mEq, Oral, ONCE, On Sat09/04/24 at 2029, For 1 dose, DO NOT CRUSH 2042 ($Given - Provi liudmila: Jillian Travis, SANCHO) documented in this encounter Care Teams Professor Of Philosophy Relationship Specialty Start Date End Date Clinic, [facility] [address] [place] [address] PCP - General 08/23/24 documented as of this encounter
--- OUTSIDE RECORDS SUMMARY | 2024-09-06 23:02 | XMS_ITS | Encounter Summary ---
Author Organization [place] Address [address] [place] [id number] Care Team Providers Care Spinner Operator Name Role Phone [facility] [...] on file Legal Sex Female 4:22 AM EDI DEVELOPER Gender Identity Not on file Sexual Orientation Not on file documented as of this encounter Plan of Treatment Not on file documented as of this encounter Visit Diagnoses Not on filedocumented in this encounter Care Teams Spinner Operator Relationship Specialty Start Date End Date [facility] [address] [facility] [place] [address] PCP - General 08/23/24 documented as of this encounter
--- OUTSIDE RECORDS SUMMARY | 2024-09-06 23:02 | XMS_ITS | Encounter Summary ---
Author Organization [place] Address [address] [place] [address] Care Team Providers Care General Production Manager Name Role Phone [facility] Primary Care Pr ovider Reason for Visit * Reason Comments Panic Attack Shortness of Breath Encounter Details Date Type Department Care Team (Late st Contact Info) Description 08/23/2024 11:33 AM LOW VISION THERAPIST - 08/23/2024 4:11 PM LOW VISION THERAPIST Emergency [facility] Emergency Dept [address] [place] [address] Myles Murillo MD Anxiety about health; Anxiety [...] on file Legal Sex Female 4:22 AM LOW VISION THERAPIST Gender Identity Not on file Sexual Orientation Not on file documented as of this encounter Last Filed Vital Signs Vital Sign Reading Time Taken Comments Blood Pressure 130/88 08/23/2024 4:10 PM LOW VISION THERAPIST Pulse 90 08/23/2024 4:10 PM LOW VISION THERAPIST Temperature 36.7 ??C (98.1 ??F) 08/23/2024 11:[address] Respiratory Rate 18 08/23/2024 4:10 PM LOW VISION THERAPIST Oxygen Saturation 100% 08/23/2024 4:10 PM LOW VISION THERAPIST Inhaled Oxygen Concentration - - Weight 81.3 kg (179 lb 3.7 oz) 08/23/2024 11:30 AM LOW VISION THERAPIST Height 167.6 cm (5' 6) 08/23/2024 11:30 AM LOW VISION THERAPIST Body Mass Index 28.93 08/23/2024 11:30 AM LOW VISION THERAPIST documented in this encounter Discharge Instructions * Discharge Instructions* Myles Murillo MD - 08/23/2024 3:35 PM LOW VISION THERAPIST Aftercare Plan Follow up with your primary care provider: 09/08/14 4:15PM Rosa Maria Phillips MD [facility] [address] [facility] [address] > Schedule appointment for psychiatric medication [facility] [address] [place] [address] [email or web address] > Keep your therapy appointment tomorrow Saturday08/24/24 4:00PM Swati Murray MSW, [facility] [address] [place] [address] SEE ADDITIONAL PAGE FOR YOUR PERSONALIZED SAFETY PLAN If I am feeling unsafe or I am in a crisis, I will: Contact my established care providers Call the [facility] 988 Go to the nearest emergency room Call 911 [facility] has a mental health crisis team you can call 13/05: [facility] [phone] Crisis Text Line Text [phone] You will be connected with a trained live crisis counselor to provide support. Por espcliff, texto TERRIE a [phone] o texto a 442-AYUDAME en [facility] Mental Health Warm Line Peer to peer support Saturday thru Saturday, 12 pm to 10 pm [phone] [place] [address] National [place] on Mental Illness (ALO) 703.159.0599 or 1.888.ALO.HELPS Mental Health Apps My3 [email or web address] [email or web address]/ VirtualHopeBox https://Rogue Sports TV/apps/fjyhhru-cidj-rda/ Additional Information Today you were seen by a licensed mental health professional through Triage and Transition services, [facility] ([facility]) for a crisis assessment in the Emergency Department at [facility]. It is recommended that you follow up with your established providers (psychiatrist, mental health therapist, and/or primary care doctor - as relevant) as soon as possible. Coordinators from [facility] will be calling you in the next 24-48 hours to ensure that you have the resources you need. You can also contact [facility] coordinators directly at [phone]. You may have been scheduled for or offered an appointment with a mental health provider. [facility] maintains an extensive network of licensed [facility] health providers to connect patients with [...] you enjoy. If you feel worse, contact 3-937-UXAWGDC ( ), or call 911, or your [...] if there is anything that worries you. VISION THERAPIST VISION THERAPIST VISION THERAPIST VISION THERAPIST VISION THERAPIST VISION THERAPIST * Attachments The following attachments cannot be sent through Care Everywhere. * Anxiety: Treatment Options: Video (Cymraes) documented in this encounter Medications at Time [...] Annemarie Morales - 08/23/2024 4:11 PM CST Trade Mark Attorney faxed DEC Consult, ANDREW, and facesheet to [facility] crisis per saud Fofana ask. Trade [employer] Attorney called and updated the county on referral made. [phone] JORGE Cristobal [facility]/ [phone] VISION THERAPIST documented in this encounter Consult Notes * Ct Maldonado [facility], [facility] - 08/23/2024 2:00 PM CST Diagnostic Evaluation Consultation Crisis Assessment Patient Name: Kacey Hines Age: [age] year old Legal Sex: female Gender Identity: female Pronouns: she/her Race: White Ethnicity: Not or Language: Cymraes Patient was assessed: In person Crisis Assessment Start Date: 08/23/24 Crisis Assessment Start Time: 1428 Crisis Assessment Stop Time: 1502 (plus [phone]) Patient location: [facility] EMERGENCY DEPT ED05 Referral Data and [...] pt's boyfriend. Pt's boyfriend was present at [facility] during the interview, per pt's request, and [...] part in safety/aftercare planning: yes Risk Assessment [place] Suicide Severity Rating Scale Full Clinical Version: Suicidal Ideation Q1 Wish to be (Lifetime): No Q2 Non-Specific Active Suicidal Thoughts (Lifetime): No Q6 Suicide Behavior (Lifetime): no Suicidal Behavior (Lifetime) Actual Attempt (Lifetime): No Has subject engaged in non-suicidal self-injurious behavior? (Lifetime): No Interrupted Attempts (Lifetime): No Aborted or Self-Interrupted Attempt (Lifetime): No Preparatory Acts or Behavior (Lifetime): No [place] Suicide Severity Rating Scale Recent: Suicidal Ideation [...] aftercare planning by ED care team and [facility], and inconsultation with attending provider, [...] for psychiatric medication management and psychotherapy though [facility] while she is uninsured. Pt signed ANDREW for referral to follow up with [facility] stabilization services. Disposition Recommended disposition: Individual Therapy, Medication Management, Other. please comment (referralto [facility] crisis [facility] services) Reviewed case and recommendations with attending provider. Attending Name: Myles Murillo MD Attending concurs with disposition: yes Patient and/or validated legal guardian concurs with disposition: yes Final disposition: discharge Legal status on admission: Voluntary/Patient has signed consent for treatment Assessment Details Total duration spent with the patient: 34 min CPT code(s) utilized: 92342 - Psychotherapy for Crisis - 60 (30-74*) min CT MALDONADO M.Ed., [facility], [facility] Licensed Mental Health Professional Triage and Transition Services - SEP [phone] VISION THERAPIST documented in this encounter ED Notes * Katie Rodriguez RN - 08/23/2024 12:02 PM CST at bedside VISION THERAPIST * Myles Murillo MD - 08/23/2024 11:56 [...] SECTION; Surgeon: Caroline Escamilla MD; Location: L+D [facility] SURGERY D&C 11/2017 wisdom teeth Physical Exam [...] rhythm with sinus arrhythmia Rate 70 bpm. MO interval 118 ms. QRS duration 80 ms. [...] to me. Myles Murillo MD 08/25/24 1031 VISION THERAPIST * Katie Rodriguez RN - 08/23/2024 11:50 [...] in place. DEC ordered to see pt. VISION THERAPIST * Zehra Win RN - 08/23/2024 11:31 [...] is different. Pt states she has stressors. VISION THERAPIST documented in this encounter Plan of Treatment Not on file documented as of this encounter Procedures Procedure Name Priority Date/Time Associated Diagnosis Comments EKG 12-LEAD, TRACING ONLY STAT 08/23/2024 12:09 PM LOW VISION THERAPIST documented in this encounter Results * EKG 12-lead, tracing only (08/23/2024 12:09 PM LOW VISION THERAPIST) Systolic Blood Pressure mmHg RADIOLOGY RESULTS Diastolic Blood Pressure mmHg RADIOLOGY RESULTS Ventricular Rate 70 BPM RAD IOLOGY RESULTS Atrial Rate 70 BPM RADIOLOG Y RESULTS MO Interval 118 ms RADIOLOG Y RESULTS QRS Duration 80 ms RADIOLO GY RESULTS QT 398 ms RADIOLOGY RESULTS QTc 429 ms RADIOLOGY RESULTS P Canvas 31 degrees RADIOLOGY RESULTS R AXIS 65 degrees RADIOLOGY RESULTS T Canvas 36 degrees RADIOLOGY RESULTS Interpretation ECG Sinus rhythm with sinus arrhythmia Normal ECG No previous ECGs available Confirmed by - EMERGENCY ROOM, PHYSICIAN ([id number]), supervising film or videotape editor ILEANA KYLE ([id number]) on 08/24/2024 7:10:40 AM RADIOLOGY RESULTS 08/23/2024 12:0 9 PM LOW VISION THERAPIST 08/24/2024 7:10 AM LOW VISION THERAPIST Myles Murillo MD ECG ORDERABLES Edited Result [...] For 1 dose $Given 08/23/2024 11:59 AM LOW VISION THERAPIST 1 mg documented in this encounter Active and Recently Administered Medications Due to Daylight Saving Time, this section may contain times in both CDT and LOW VISION THERAPIST. Scheduled Medication Order 08/21/2024 08/22/2024 08/23/2024 LORazepam (ATIVAN) tablet 1 mg (COMPLETED) 1 mg, Oral, ONCE, On 08/23/24 at 1200, For 1 dose 1159 ($Given - Provi liudmila: Kayanne Kroc, RN) documented in this encounter Care Teams General Production Manager Relationship Specialty Start Date End Date [facility] [address] [place] [address] PCP - General 08/23/24 documented as of this encounter
--- OUTSIDE RECORDS SUMMARY | 2024-09-06 23:02 | XMS_ITS | Clinical Summary ---
Author Organization [facility] Address [place], [place] [address] Care Team Providers Care Dining Car Hop Name Role [facility] + Allergies No known [...] mouth 3 times daily if needed. Active Lzmmx-7-OTW-EPA-Fish Oil (Fish OiL) 1,000 mg (120 mg-180 [...] Description 07/26/2024 2:50 PM CDT Office Visit [facility] [address] [facility] [address] [place], [place] [id number] Shyann Umana NP Derm Problem 07/26/2024 Travel from Last 3 [...] st Contact Info) Description 10/22/2024 10:00 AM BICYCLE SERVICE TECHNICIAN Office Visit [facility] [address] [address] [place] [address] [place], [place] [id number] Health Maintenance Due Date Last Done Comments [...] Comments Code Status Discussion: Discussed Care Teams Dining Car Hop Relationship Specialty Start Date End Date [facility] [address] [place], [place] [phone] PCP - General 01/14/24
--- OUTSIDE RECORDS SUMMARY | 2024-09-06 23:02 | XMS_ITS | Encounter Summary ---
Author Organization [place] Address [address] [place] [address] Care Team Providers Care Machine I Cutter Name Role Phone Eileen Vaughn PA-C Primary Care Provid er [facility], [facility] Primary Care Pro vider [facility], [facility] Primary Care Pr ovider Encounter Details Date Type Department Care Team (Late st Contact Info) Description 07/31/2013 [facility] [address] [address] [place] Social History Tobacco Use Types Packs/Day Years Used Date Smoking Tobacco: Every Day Cigarettes 0.5 1 Smokeless Tobacco: Never Alcohol Use Standard Drinks/Week Comments No 0 (1 standard drink = 0.6 oz pur e alcohol) Comments No Sex and Gender Information Value Date Recorded Sex Assigned at Not on file Legal Sex Female 4:22 AM DANDY OPERATOR Gender Identity Not on file Sexual Orientation Not on file documented as of this encounter Plan of Treatment Not on file documented as of this encounter Visit Diagnoses Not on filedocumented in this encounter Care Teams Machine I Cutter Relationship Specialty Start Date End Date Eileen Vaughn PA-C [address] [place] [address] [place] [address] PCP - General Family Practice 12/07/10 08/08/23 [facility], [facility] [address] [place] [address] PCP - General 08/09/23 08/22/24 [facility] [address] [place] [address] PCP - General 08/23/24 documented as of this encounter
--- OUTSIDE RECORDS SUMMARY | 2024-09-06 23:02 | XMS_ITS | Encounter Summary ---
Author Organization [place] Address [address] [place] [address] Care Team Providers Care Lockstitch Collar Setter Name Role Phone [facility] Primary Care Pr ovider Reason for Visit * Reason Comments Anxiety Encounter Details Date Type Department Care Team ([facility] st Contact Info) Description 08/26/2024 7:06 PM CABLE COVERER - 08/26/2024 11:00 PM CABLE COVERER Emergency [facility] Emergency Dept [address] [place] [address] Juarez Gonzalez MD [facility] [address] [facility] [address] [place], [place] [phone] ROSE MARY (generalized anxiety disorder); Generalized anxiety [...] on file Legal Sex Female 4:22 AM CABLE COVERER Gender Identity Not on file Sexual Orientation Not on file documented as of this encounter Last Filed Vital Signs Vital Sign Reading Time Taken Comments Blood Pressure 130/87 08/26/2024 7:04 PM CABLE COVERER Pulse 94 08/26/2024 7:04 PM CABLE COVERER Temperature 37 ??C (98.6 ??F) 08/26/2024 7:04 PM CABLE COVERER Respiratory Rate 18 08/26/2024 7:04 PM CABLE COVERER Oxygen Saturation 100% 08/26/2024 7:04 PM CABLE COVERER Inhaled Oxygen Concentration - - Weight 77.4 kg (170 lb 10.2 oz) 08/26/2024 7:04 PM CABLE COVERER Height - - Body Mass Index 27.54 08/23/2024 11:30 AM CABLE COVERER documented in this encounter Discharge Instructions * Discharge Instructions* Steve Tang P - 08/26/2024 10:19 PM CABLE COVERER Scheduled Appointment: Date: , 08/27/2024 Time: 12:00 pm - 1:00 pm Provider: Nikia CARRION PA-C Location: [facility], [address] [place] [address], [address] [address] Type: Telepsychiatry Patient Instructions: Please fill New Patient Form by using following link. All forms need to be completed 24 hours priorto the appointment date/time by going to [email or web address] Please call us on [phone] 24 hours prior to your scheduled appointment to confirm that you are able to attend. We will provi de you information about how to log into video call software when you call. It is your responsibility to contact your insurance company directly to verify coverage, eligibility, payment, and benefit information for any appointments or referrals listed above. [facility] maintains an extensive network of licensed behavioral [...] of FREE Mental Health Options in the [facility] Area: [facility]) Serves those in emotional crisis with 24-hour, gemzg-tqk-j-week crisis counseling, assessment, referral, and medication management. Suicidal: [phone] Consultation: [phone] [place] [address] 13/05 [facility] [phone] Serves those in need of free outpatient mental health care Hours: Sat, Sat, Sat 1-3pm; Sat- 6:30-8:30pm [facility] [address] [place], [place] [id number] E COVERER E COVERER documented in this encounter Medications at Time [...] encounter Consult Notes * Devante Pearl Betty, HOME SERVICE DIRECTOR - 08/26/2024 10:24 PM CSTAssociated Order(s): DIAGNOSTIC EVALUATION [facility]ENTER (DEC) ASSESSMENT ORDER Diagnostic Evaluation Consultation Crisis Assessment Patient Name: Kacey Hines Age: [age] year old Legal Sex: female Gender Identity: female Pronouns: Race: White Ethnicity: Not or Language: Tamazight Patient was assessed: Virtual: Icanbesponsored Crisis Assessment Start Date: 08/26/24 Crisis Assessment Start Time: 2137 Crisis Assessment Stop Time: 2157 Patient location: [facility] EMERGENCY DEPT ED05 Referral Data and [...] information name, relationship, phone number: Beth Gibson [phone] What happened today: Beth reported Pt came [...] Beth noted Pt has cellulitisissues. Risk Assessment [place] Suicide Severity Rating Scale Full Clinical Version: Suicidal Ideation Q1 Wish to be (Lifetime): No Q2 Non-Specific Active Suicidal Thoughts (Lifetime): No Q6 Suicide Behavior (Lifetime): no Suicidal Behavior (Lifetime) Actual Attempt (Lifetime): No Interrupted Attempts (Lifetime): No Aborted or Self-Interrupted Attempt (Lifetime): No Preparatory Acts or Behavior (Lifetime): No [place] Suicide Severity Rating Scale Recent: Suicidal Ideation [...] that pt discharge with OP MH support. Title One Teacher connected patient to a psychiatry appointment tomorrow. [...] DEC - Triage & Transition Services Callback: [phone] E COVERER documented in this encounter ED Notes * Sarah Sotomayor RN - 08/26/2024 9:39 PM CST V-DEC at bedside. E COVERER * Juarez Gonzalez MD - 08/26/2024 7:41 [...] Atenolol Lorazepam Rizatriptan Surgical History C section It Support Consultant surgery [place] tooth removal Physical Exam Patient Vitals for [...] no nystagmus seen by her mental health apns no indication for inpatient admission, will focus [...] of Management Discussed with our mental health apns ED Course ED Course as of 08/26/242333Aug 26, 20241916 Reviewed office visit from earlier today as well as telehealth behavioral visit from August 24. 1939 I obtained the history and examined the patient as above. 2207 I talked to [facility] regarding the patient. Additional Documentation Medical Decision Making / Diagnosis [facility] Diagnoses: [facility] MDM Kacey Hines is a 34 year [...] statements to me. Juarez Gonzalez MD 08/26/241 E COVERER * Caroline Paulino RN - 08/26/2024 7:08 PM CST Bed: ED05 Expected date: Expected time: Means of arrival: Comments: MH only E COVERER * Sarah Aguirre RN - 08/26/2024 7:06 PM CST Bed: ED04 Expected date: Expected time: Means of arrival: Comments: MH only E COVERER * aSrah Aguirre RN - 08/26/2024 7:04 PM CST Pt arrives with increased anxiety, pt was started on lexapro 3 weeks ago and hydroxyzine at needed. E COVERER * Sarah Russell RN - 08/26/2024 9:00 AM CST Pt feels anxiety has improved since taking oral medication E COVERER documented in this encounter Plan of Treatment [...] For 1 dose $Given 08/26/2024 7:35 PM CABLE COVERER 1 mg documented in this encounter Active and Recently Administered Medications Times are shown in CABLE COVERER. Scheduled Medication Order 08/24/2024 2024 08/26/2024 LORazepam (ATIVAN) tablet 1 mg (COMPLETED) 1 mg, Oral, ONCE, On Sat08/26/24 at 1935, For 1 dose 1934 ($Given - Provi liudmila: Sarah Russell RN) documented in this encounter Care Teams Lockstitch Collar Setter Relationship Specialty Start Date End Date [facility], [facility] [address] [place] [address] PCP - General 08/23/24 documented as of this encounter
--- OUTSIDE RECORDS SUMMARY | 2024-09-06 23:02 | XMS_ITS | Encounter Summary ---
Author Organization [place] Address [address] [place] [address] Care Team Providers Care Senior Analyst Programmer Name Role Phone [facility] Primary Care Pr ovider Encounter Details Date Type Department Care Team (Latest Contact Info) Description 09/04/2024 Travel Social History Tobacco Use Types Packs/Day [...] on file Legal Sex Female 4:22 AM COKE BURNER Gender Identity Not on file Sexual Orientation Not on file documented as of this encounter Plan of Treatment Not on file documented as of this encounter Visit Diagnoses Not on filedocumented in this encounter Care Teams Senior Analyst Programmer Relationship Specialty Start Date End Date [facility] [address] [place] [address] PCP - General 08/23/24 documented as of this encounter
--- OUTSIDE RECORDS SUMMARY | 2024-09-06 23:02 | XMS_ITS | Referral Summary ---
Author Organization [place] Address [address] [place] [address] Care Team Providers Care Senior Java Architect Name Role Phone Clinic, [facility] Primary [facility] Pr ovider Encounters Date Type Department Care Team Description 09/04/2024 Travel 09/04/2024 7:39 PM DEFECT REPAIRER GLASSWARE - 09/04/2024 11:48 PM DEFECT REPAIRER GLASSWARE Emergency [facility] Emergency Dept [address] [place] [address] Juarez Gonzalez MD Palpitations; Hypokalemia; Anxiety Discharge Disposition: Home or Self Care 09/01/2024 Documentation Only [facility] [address] [facility] [address] [place] [phone] Tracey Whitley Advance Care Planning 08/31/2024 Telephone [facility] - Behavioral Service Line [address] [place] [phone] Kiki Chairez 08/28/2024 Travel 08/28/2024 3:22 PM DEFECT REPAIRER GLASSWARE - 08/28/2024 6:57 PM [facility] Emergency [facility] Emergency Dept [address] [place] [address] [phone] Yvon Mack MD Generalized anxiety disorder with panic attacks Discharge Disposition: Home or Self Care 08/27/2024 Telephone [facility] Behavioral Service Line [address] [place] [phone] Caroline Peters 08/26/2024 Travel 08/26/2024 7:06 PM DEFECT REPAIRER GLASSWARE - 08/26/2024 11:00 PM [facility] Emergency [facility] Emergency Dept [address] [place] [address] Juarez Gonzalez MD ROSE MARY (generalized anxiety disorder); Generalized anxiety disorder with panic attacks Discharge Disposition: Home or Self Care 08/24/2024 Documentation Only [facility] [address] [facility] [address] [place] [address] Tracey Whitley Advance Care Planning 08/23/2024 Travel 08/23/2024 11:33 AM DEFECT REPAIRER GLASSWARE - 08/23/2024 4:11 PM [facility] Emergency [facility] Emergency Dept [address] [place] [address] Myles Murillo MD Anxiety about health; Anxiety [...] on file Legal Sex Female 4:22 AM DEFECT REPAIRER GLASSWARE Gender Identity Not on file Sexual Orientation Not on file Last Filed Vital Signs Vital Sign Reading Time Taken Comments Blood Pressure 107/74 09/04/2024 11:45 PM DEFECT REPAIRER GLASSWARE Pulse 64 09/04/2024 11:45 PM DEFECT REPAIRER GLASSWARE Temperature 37.1 ??C (98.8 ??F) 09/04/2024 11:[address] Respiratory Rate 16 09/04/2024 11:45 PM DEFECT REPAIRER GLASSWARE Oxygen Saturation 98% 09/04/2024 11:45 PM DEFECT REPAIRER GLASSWARE Inhaled Oxygen Concentration - - Weight 79.9 kg (176 lb 2.4 oz) 09/04/2024 7:23 P M DEFECT REPAIRER GLASSWARE Height 167.6 cm (5' 6) 09/04/2024 7:23 PM DEFECT REPAIRER GLASSWARE Body Mass Index 28.43 09/04/2024 7:23 PM DEFECT REPAIRER GLASSWARE Plan of Treatment Not on file Procedures Procedure Name Priority Date/Time Associated Diagnosis Comments XR CHEST 2 VIEWS STAT 09/04/2024 9:47 PM DEFECT REPAIRER GLASSWARE D DIMER QUANTITATIVE STAT 09/04/2024 8:29 PM DEFECT REPAIRER GLASSWARE CBC WITH PLATELETS & DIFFERENTIAL STAT 09/04/2024 7:39 PM DEFECT REPAIRER GLASSWARE MAGNESIUM STAT 09/04/2024 7:39 PM DEFECT REPAIRER GLASSWARE CBC WITH PLATELETS AND DIFFERENTIAL STAT 09/04/2024 7:39 PM DEFECT REPAIRER GLASSWARE BASIC METABOLIC PANEL STAT 09/04/2024 7:39 PM DEFECT REPAIRER GLASSWARE TROPONIN T, HIGH SENSITIVITY STAT 09/04/2024 7:39 PM DEFECT REPAIRER GLASSWARE EKG 12-LEAD, TRACING ONLY STAT 09/04/2024 7:35 PM DEFECT REPAIRER GLASSWARE EKG 12-LEAD, TRACING ONLY STAT 08/28/2024 5:30 PM DEFECT REPAIRER GLASSWARE EKG 12-LEAD, TRACING ONLY STAT 08/23/2024 12:09 PM DEFECT REPAIRER GLASSWARE HIV ANTIGEN ANTIBODY COMBO Routine 04/16/2018 HEPATITIS [...] XR Chest 2 Views (09/04/2024 9:47 PM DEFECT REPAIRER GLASSWARE) Anatomical Region Laterality Modality Chest Digital Radiogra phy 09/04/2024 9:47 PM DEFECT REPAIRER GLASSWARE Impressions 09/04/2024 10:30 PM DEFECT REPAIRER GLASSWARE IMPRESSION: No evidence of active cardiopulmonary disease. Narrative 09/04/2024 10:30 PM DEFECT REPAIRER GLASSWARE EXAM: CHEST 2 VIEWS LOCATION: [facility] DATE: 09/04/2024 INDICATION: Chest pain. COMPARISON: None. FINDINGS: The lungs are clear. Normal size cardiac silhouette. Procedure Note Khoi Mejia MD - 09/04/2024 EXAM: CHEST 2 VIEWS LOCATION: [facility] DATE: 09/04/2024 INDICATION: Chest pain. COMPARISON: None. FINDINGS: The lungs are clear. Normal size cardiac silhouette. IMPRESSION: No evidence of active cardiopulmonary disease. us Juarez Gonzalez MD IMG DIAGNOSTIC IMAGING ORDERABLES Final Result * D dimer quantitative (09/04/2024 8:29 PM DEFECT REPAIRER GLASSWARE) D-Dimer Quantitative <0.27 0.00 - 0.50 ug/mL FEU 09/04/2024 8:50 PM DEFECT REPAIRER GLASSWARE [facility] Blood BLOOD SPECIMEN / Unknown Venipuncture / Unknown 09/04/2024 8:29 PM DEFECT REPAIRER GLASSWARE 09/04/2024 8:33 PM DEFECT REPAIRER GLASSWARE Narrative [facility] - 09/04/2024 8:50 PM DEFECT REPAIRER GLASSWARE This D-dimer assay is intended for use in conjunction with a clinical pretest probability assessment model to exclude pulmonary embolism (PE) and deep venous thrombosis (DVT) in outpatients suspected of PE or DVT. The cut-off value is 0.50 ug/mL FEU. us Juarez Gonzalez MD LAB - BLOOD ORDERABLES Final Result [facility] [address] Lab (1st floor, no room number) [place] [address], [facility] * CBC with platelets and differential (09/04/2024 7:39 PM DEFECT REPAIRER GLASSWARE) WBC Count 7.5 4.0 - 11.0 10e3/uL 09/04/2024 7:59 PM DEFECT REPAIRER GLASSWARE [facility] RBC Count 4.83 3.80 - 5.20 10e6/uL 09/04/2024 7:59 PM DEFECT REPAIRER GLASSWARE [facility] Hemoglobin 14.0 11.7 - 15.7 g/dL 09/04/2024 7:59 PM DEFECT REPAIRER GLASSWARE [facility] Hematocrit 42.2 35.0 - 47.0 % 09/04/2024 7:59 PM DEFECT REPAIRER GLASSWARE [facility] MCV 87 78 - 100 fL 09/04/2024 7:59 PM DEFECT REPAIRER GLASSWARE [facility] MCH 29.0 26.5 - 33.0 pg 09/04/2024 7:59 PM DEFECT REPAIRER GLASSWARE [facility] MCHC 33.2 31.5 - 36.5 g/dL 09/04/2024 7:59 PM DEFECT REPAIRER GLASSWARE [facility] RDW 12.3 10.0 - 15.0 % 09/04/2024 7:59 PM DEFECT REPAIRER GLASSWARE [facility] Platelet Count 242 150 - 450 10e3/uL 09/04/2024 7:59 PM DEFECT REPAIRER GLASSWARE [facility] % Neutrophils 69 % 09/04/2024 7:59 PM DEFECT REPAIRER GLASSWARE [facility] % Lymphocytes 23 % 09/04/2024 7:59 PM DEFECT REPAIRER GLASSWARE [facility] % Monocytes 7 % 09/04/2024 7:59 PM DEFECT REPAIRER GLASSWARE [facility] % Eosinophils 1 % 09/04/2024 7:59 PM DEFECT REPAIRER GLASSWARE [facility] % Basophils 1 % 09/04/2024 7:59 PM DEFECT REPAIRER GLASSWARE [facility] % Immature Granulocytes 0 % 09/04/2024 7:59 PM DEFECT REPAIRER GLASSWARE [facility] NRBCs per 100 WBC 0 <1 /100 024 7:59 PM DEFECT REPAIRER GLASSWARE [facility] Absolute Neutrophils 5.2 1.6 - 8.3 10e3/uL 09/04/2024 7:59 PM DEFECT REPAIRER GLASSWARE [facility] Absolute Lymphocytes 1.7 0.8 - 5.3 10e3/uL 09/04/2024 7:59 PM DEFECT REPAIRER GLASSWARE [facility] Absolute Monocytes 0.5 0.0 - 1.3 10e3/uL 09/04/2024 7:59 PM DEFECT REPAIRER GLASSWARE [facility] Absolute Eosinophils 0.1 0.0 - 0.7 10e3/uL 09/04/2024 7:59 PM DEFECT REPAIRER GLASSWARE [facility] Absolute Basophils 0.0 0.0 - 0.2 10e3/uL 09/04/2024 7:59 PM DEFECT REPAIRER GLASSWARE [facility] Absolute Immature Granulocytes 0.0 <=0.4 10e3/uL 09/04/2024 7:59 PM DEFECT REPAIRER GLASSWARE [facility] Absolute NRBCs 0.0 10e3/uL 09/04/2024 7:59 PM DEFECT REPAIRER GLASSWARE [facility] Blood STRUCTURE OF LEFT UPPER LIMB / Unknown Venipuncture / Unknown 09/04/2024 7:39 PM DEFECT REPAIRER GLASSWARE 09/04/2024 7:56 PM DEFECT REPAIRER GLASSWARE us Juarez Gonzalez MD LAB - BLOOD ORDERABLES Final Result LABORATORY [facility] Acute Care Lab [address] [facility] Lab (1st floor, no room number) [place] [address] * Troponin T, High Sensitivity (09/04/2024 7:39 PM DEFECT REPAIRER GLASSWARE) [facility] Troponin T, High Sensitivity <6 <=14 ng/L 09/04/2024 8:23 PM DEFECT REPAIRER GLASSWARE [facility] Comment: Either a High Sensitivity [...] Unknown Venipuncture / Unknown 09/04/2024 7:39 PM DEFECT REPAIRER GLASSWARE 09/04/2024 7:56 PM DEFECT REPAIRER GLASSWARE Juarez Gonzalez MD LAB - BLOOD ORDERABLES Final Result LABORATORY [facility] [address] (1st floor, no room number) [address] * Magnesium (09/04/2024 7:39 PM DEFECT REPAIRER GLASSWARE) Pathologist [facility] Magnesium 2.2 1.7 - 2.3 mg/dL 09/04/2024 8:31 PM DEFECT REPAIRER GLASSWARE LABORATORY Blood STRUCTURE OF LEFT UPPER LIMB / Unknown Venipuncture / Unknown 09/04/2024 7:39 PM DEFECT REPAIRER GLASSWARE 09/04/2024 7:56 PM DEFECT REPAIRER GLASSWARE Juarez Gonzalez MD LAB - BLOOD ORDERABLES Final Result Performing Organization Address [facility]/ZIP Co de Phone Number LABORATORY [facility] [address] Lab (1st floor, no room number) [address] * (ABNORMAL) Basic metabolic panel (BMP) (09/04/2024 7:39 PM DEFECT REPAIRER GLASSWARE) Sodium 139 135 - 145 mmol/L 09/04/2024 8:23 PM [facility] Potassium 3.4 3.4 - 5.3 mmol/L 09/04/2024 8:23 PM [facility] Chloride 104 98 - 107 mmol/L 09/04/2024 8:23 PM [facility] Carbon Dioxide (CO2) 23 22 - 29 mmol/L 09/04/2024 8:23 PM [facility] Anion Gap 12 7 - 15 mmol/L 09/04/2024 8:23 PM [facility] Urea Nitrogen 7.2 6.0 - 20.0 mg/dL 09/04/2024 8:23 PM [facility] Creatinine 0.72 0.51 - 0.95 mg/dL 09/04/2024 8:23 PM [facility] GFR Estimate >90 >60 mL/min/1.7 3m2 09/04/2024 8:23 PM [facility] Comment:eGFR calculated usin g 2020 CKD-EPI equation. Calcium 9.6 8.8 - 10.4 mg/dL 09/04/2024 8:23 PM DEFECT REPAIRER GLASSWARE [facility] Comment:Reference intervals for this test were updated on 05/05/2024 to reflect our healthy population more accurately. There may be differences in the flagging of prior results with similar values performed with this method. Those prior results can be interpreted in the context of the updated reference intervals. Glucose 112(H) 70 - 99 mg/dL 09/04/2024 8:23 PM DEFECT REPAIRER GLASSWARE LABORATORY Blood STRUCTURE OF LEFT UPPER LIMB / Unknown Venipuncture / Unknown 09/04/2024 7:39 PM DEFECT REPAIRER GLASSWARE 09/04/2024 7:56 PM DEFECT REPAIRER GLASSWARE us Juarez Gonzalez MD LAB - BLOOD ORDERABLES Final Result LABORATORY [facility] [address] [facility] Lab (1st floor, no room number) [place] [address] * EKG 12-lead, tracing only (08/28/2024 5:30 PM DEFECT REPAIRER GLASSWARE) Only the most recent of2 resultswithin the time period is included. Systolic Blood Pressure mmHg RADIOLOGY RESULTS Diastolic Blood Pressure mmHg RADIOLOGY RESULTS Ventricular Rate 64 BPM RAD IOLOGY RESULTS Atrial Rate 64 BPM RADIOLOG Y RESULTS SD Interval 130 ms RADIOLOG Y RESULTS QRS Duration 80 ms RADIOLO GY RESULTS QT 430 ms RADIOLOGY RESULTS QTc 443 ms RADIOLOGY RESULTS P [place] 33 degrees RADIOLOGY RESULTS R AXIS 69 degrees RADIOLOGY RESULTS T [place] 38 degrees RADIOLOGY RESULTS Interpretation ECG Sinus rhythm Normal ECG When compared with ECG of 23-Aug-2024 12:09, No significant change was found Confirmed by - EMERGENCY ROOM, PHYSICIAN ([id number]), proposal editor ILEANA KYLE ([id number]) on 08/31/2024 7:21:29 AM RADIOLOGY RESULTS 08/28/2024 5:30 PM DEFECT REPAIRER GLASSWARE 08/31/2024 7:21 AM DEFECT REPAIRER GLASSWARE us Yvon Mack MD ECG ORDERABLES Edited Result - Final RADIOLOGY RESULTS * HIV Antigen Antibody Combo (04/16/2018) HIV Antigen Antibody Combo negative Blood specimen (specimen) us Patient Reported LAB - BLOOD ORDERABLES Final Re sult * Hepatitis C antibody (08/18/2014 9:29 AM CDT) Hepatitis C Antibody Negative NEG [facility] Blood specimen (specimen) 08/18/2014 9:29 AM CDT 08/18/2014 9:32 AM CDT us Wiliam Vaughn PA-C LAB - BLOOD ORDERABL ES Final Result [facility] [address] * PAP imaged thin layer, screen (08/18/2014 12:00 AM CDT) PAP NIRMALA Zaldivar Report Patient Name: TURNER TIDWELL MR#: [id number] Specimen #: [id number] Collected: 08/18/2014 Received: 08/19/2014 Reported: 08/24/2014 12:44 Ordering Phy(s): WILIAM VAUGHN SPECIMEN/STAIN PROCESS: Pap imaged thin layer prep [...] Vieyra ( ASCP) Processed and screened at [facility] CLINICAL HISTORY: LMP: 08/09/2014 Previous normal pap Date of Last Pap: 04/10/2012 Previous abnormal pap: lgsil, Papanicolaou Test Limitations: ??Cervical cytology is a screening test with limited sensitivity; regular screening is critical for cancer prevention; Pap tests are primarily effective for the diagnosis/preventi on of squamous cell carcinoma, not adenocarcinomas or other cancers. TESTING LAB LOCATION: [address] [place], [place] ??[phone] COLLECTION SITE: Client: ??[facility] Location: [facility] (R) COPATH Cytologic material (specimen) 08/18/2014 08/19/2014 11:48 AM CDT Wiliam Vaughn PA-C LAB - OPTIME CLINICA L SPECIMEN Final Result COPATH from Last 3 Months or Most Recently Relevant to Health Maintenance Care Teams Senior Java Architect Relationship Specialty Start Date End Date Kristopher, Gladys Jamison [place] [address] [place] [address] PCP - General 08/23/24
--- OUTSIDE RECORDS SUMMARY | 2024-09-06 23:02 | XMS_ITS | Encounter Summary ---
Author Organization [place] Address [address] [place] [address] Care Team Providers Care Blueprint Machine Operator Name Role Phone Gladys Summers Primary Care Pr ovider Reason for Visit * Reason Comments Advance Care Planning Encounter Details Date Type Department Care Team (Latest Contact Info) Description 09/01/2024 Documentation Only [facility] [address] [facility] [address] [place] [address] Tracey Whitley [facility] [address] [place] [address] Advance Care Planning Social History Tobacco Use [...] on file Legal Sex Female 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 [facility] [address] PCP - General 08/23/24 documented as of this encounter
--- OUTSIDE RECORDS SUMMARY | 2024-09-06 23:02 | XMS_ITS | Encounter Summary ---
Author Organization [place] Address [address] [place] [address] Care Team Providers Care Air Deodorizer Servicer Name Role Phone Gladys Summers Primary Care Pr ovider Reason for Visit * Reason Comments Advance Care Planning Encounter Details Date Type Department Care Team (Latest Contact Info) Description 08/24/2024 Documentation Only [facility] [address] [facility] [address] [place] [address] Tracey Whitley [facility] [address] [place] [address] Advance Care Planning Social History Tobacco Use [...] on file Legal Sex Female 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 [place] [address] PCP - General 08/23/24 documented as of this encounter
== END 2024-08-28 14:57 | disposition home or self-care (01) ==
LOC: AMB 09-06 22:59
PROVIDERS: PCP Family Medicine; Visit Provider Family Medicine
DX: F29 Unspecified psychosis not due to a substance or known physiological condition (principal)
CPT/HCPCS: A0425; A0427

== ENCOUNTER 2024-08-31 18:21 | Emergency (ER) | payer MEDICAID, SELFPAY ==
[2024-08-31] VITALS (7 sets, daily range): BP systolic 109–135; BP diastolic 74–85; PULSE 79–111; RESP 20; TEMP 36.7; O2SAT 98–99; BMI 28.6
--- NOTE | 2024-08-31 19:19 | ED.CHESTPAIN ---
HPI - Chest Pain General Time Seen by Provider: 19:20 Date Seen: 08/31/24 Chief Complaint: Chest Pain Stated Complaint: Chest pain, short of breath Time Seen by Provider: 08/31/24 19:07 Source: patient, RN notes reviewed and old records reviewed Mode of arrival: ambulatory Limitations: no limitations History of Present Illness HPI narrative: 34-year-old female who comes in today with chest pain and shortness of breath. Patient says she has a couple weeks of migratory chest pain, sometimes in the middle of the chest, sometimes in the left upper chest and sometimes in the left lower chest. Also palpitations, feels like her heart goes very fast when she stands up, she does get a little bit lightheaded with this as well. She denies vomiting, diarrhea. She does use nicotine but denies any drug use. Started Lexapro about a month ago as well as lorazepam as needed. Related Data Home Medications ?Medication ?Instructions ?Recorded ?Confirmed escitalopram oxalate 20 mg tablet 20 mg PO DAILY 02/07/24 07/20/24 (Lexapro) rizatriptan 10 mg tablet 10 mg PO DIRECTED 02/07/24 07/20/24 Allergies Allergy/AdvReac Type Severity Reaction Status Date / Time Sulfa (Sulfonamide Allergy Mild Hives Verified 07/20/24 15:39 Antibiotics) [facility] Social History Smoking Status: Never smoker Do you use any of these nicotine containing products: Vaping Products Second hand tobacco smoke exposure: No How often do you have a drink containing alcohol: never AUDIT-C Alcohol total score: 0 Non-prescribed substance use: denies use service: No Exam Narrative Exam Narrative: General: Well-developed and well-nourished, no acute distress Head: Atraumatic and normocephalic Eyes: Pupils are equal reactive, extraocular motions intact, conjunctiva clear ENT: External nose and ears are normal, posterior pharynx without erythema or exudate Neck: No midline cervical tenderness, full spontaneous range of motion the neck, trachea midline, no adenopathy Heart: Regular rate and rhythm no murmurs or thrills Lungs: Clear to auscultation bilaterally without wheezes or crackles Abdomen: Soft, nontender, nondistended with active bowel sounds Musculoskeletal: No tenderness, deformity, or edema Neurologic: Awake, alert, and oriented x3, no gross focal neurologic deficits, cranial nerves intact as tested Psych: Mood and affect are appropriate Skin: No rashes Const Vital Signs, click to edit/add: Vital Signs - 24 hr 08/31/24 18:28 08/31/24 19:21 08/31/24 19:42 Temperature 98.0 F Pulse Rate 105 H 99 Pulse Rate [Pulse Oximeter] 111 H Respiratory Rate 20 20 20 Blood Pressure 109/77 125/85 Blood Pressure [Right Upper Arm] 135/82 Pulse Oximetry 99 99 99 Oxygen Delivery Method Room Air Course Course ED Course: Patient seen examined, reviewed most recent emergency department visit from August 28 when patient was seen with depression and suicide ideation, anxiety, currently without health insurance. Patient was evaluated and discharged. Also reviewed prior emergency department visit from August 26 when patient was seen with similar. Seen in this emergency department on June 20 with acute anxiety as well. Patient presents today with palpitations, says her heart rate goes high when she stands up, also concern for migratory chest pain. On initial arrival, patient tachycardic but at the time my evaluation heart rate 70-80. Lungs are clear, no abdominal or chest tenderness. EKG is reassuring, labs are ordered and patient will be encouraged to drink fluids. EKG independently interpreted by me performed at 7:12 p.m. demonstrates sinus rhythm rate 82, no acute ST elevations or depressions, normal axis, normal intervals, QTC 434, NV 136, no acute ischemic changes. No prior for comparison. Reevaluation(s) Time of Reevaluation #1: 20:22 Reevaluation #1: Labs independently interpreted by me with normal CBC, negative BNP, negative troponin, normal magnesium, negative D-dimer. No definite etiology for symptoms today, there may be component dehydration with tachycardia on standing and lightheadedness, also possibly component of anxiety. However no evidence for acute coronary syndrome/myocardial infarction, acute pulmonary disease, pulmonary embolism. Patient is stable for discharge with outpatient follow-up. Vital Signs Vital signs: Initial Vital Signs Temperature 98.0 F 08/31/24 18:28 Temperature Source Temporal Artery Scan 08/31/24 18:28 Pulse Rate 111 H 08/31/24 18:28 Pulse Rhythm Regular 08/31/24 18: Respiratory Rate 20 08/31/24 18:28 Blood Pressure 135/82 08/31/24 18:28 Blood Pressure Mean 99 08/31/24 18:28 Blood Pressure Position Sitting 08/31/24 18:28 Pulse Oximetry 99 08/31/24 18:28 Oxygen Delivery Method Room Air 08/31/24 18:28 Vital Signs Temperature 98.0 F 08/31/24 18:28 Pulse Rate 111 H 08/31/24 18:28 Respiratory Rate 20 08/31/24 18:28 Blood Pressure 135/82 08/31/24 18:28 Pulse Oximetry 99 08/31/24 18:28 Oxygen Delivery Method Room Air 08/31/24 18:28 Temperature 98.0 F 08/31/24 18:28 Pulse Rate 99 08/31/24 19:42 Respiratory Rate 20 08/31/24 19:42 Blood Pressure 125/85 08/31/24 19:42 Pulse Oximetry 99 08/31/24 19:42 Oxygen Delivery Method Room Air 08/31/24 18:28 MDM - Chest Pain Lab Data Labs: Lab Results 08/31/24 08/31/24 Range/Units 19:10 19:16 WBC 7.15 (4.50-11.00) K/uL RBC 4.82 (4.00-5.20) m/uL Hgb 14.1 (12.0-16.0) gm/dL Hct 42.1 (33.0-51.0) % MCV 87 (80-100) fL MCH 29 (26-34) pg MCHC 34 (32-36) gm/dL RDW Coeff of Tristan 12.3 (11.5-15.5) % Plt Count 248 (140-440) K/uL Neut % (Auto) 63.8 (42.0-72.0) % Lymph % (Auto) 29.5 (20-44) % Faulkner % (Auto) 5.6 (0.0-11.0) % Eos % (Auto) 0.7 (0.0-7.0) % Baso % (Auto) 0.4 (0.0-3.0) % Neut # (Auto) 4.56 (1.7-7.0) K/uL Lymph # (Auto) 2.11 (0.90-2.90) K/uL Faulkner # (Auto) 0.40 (0.00-0.90) K/UL Eos # (Auto) 0.05 (0.00-0.50) K/uL Baso # (Auto) 0.03 (0.00-0.30) K/uL Abs Immat Gran (auto) 0.00 (0.00-0.30) K/uL Imm/Tot Granulo (auto) 0.0 % D-Dimer Quant (PE/DVT) < 0.27 (0.00-0.50) ug/ml Sodium 136 (135-149) mmol/L Potassium 3.4 L (3.6-5.1) mmol/L Chloride 101 (96-114) mmol/L Carbon Dioxide 24 (20-32) mmol/L Anion Gap 11 (7-15) mEq/L BUN 11 (5-24) mg/dL Creatinine 0.6 (0.5-1.5) mg/dL Estimated Creat Clear 124.85 Estimated GFR 121 ml/min Glucose 105 (60-115) mg/dL Calcium 9.7 (8.4-10.6) mg/dL Magnesium 2.2 (1.5-2.6) mg/dL NT-Pro-B Natriuret Pep < 20 pg/mL POC Troponin I 0.00 L (0.01-0.04) ng/ml Discharge Plan Discharge Clinical Impression: Atypical chest pain, Dyspnea Instructions: Chest Pain (ED), Dyspnea (ED) Additional Instructions: Make sure you are drinking plenty of fluids during the day. This will help with your lightheadedness stent increased heart rate when you stand up. Follow-up with your primary care doctor. Activity Level: No Restrictions Discharge Diet: Regular Prescriptions: No Action escitalopram oxalate [Lexapro] 20 mg tablet 20 mg PO DAILY rizatriptan 10 mg tablet 10 mg PO DIRECTED Follow Up/Referrals: Provider,Not a Local [Non-Staff] - Stand Alone Forms: [employer] Info Instructions
[2024-08-31 19:37] LABS: Basophils Absolute Auto 0.03 K/uL (0.00-0.30); Basophils Percent Auto 0.4 % (0.0-3.0); Eosinophils Absolute Auto 0.05 K/uL (0.00-0.50); Eosinophils Percent Auto 0.7 % (0.0-7.0); Hematocrit 42.1 % (33.0-51.0); Hemoglobin* 14.1 gm/dL (12.0-16.0); Lymphocytes Absolute Auto 2.11 K/uL (0.90-2.90); Lymphocytes Percent Auto 29.5 % (20-44); Mean Corpuscular HGB Conc 34 gm/dL (32-36); Mean Corpuscular Hemoglobin 29 pg (26-34); Mean Corpuscular Volume 87 fL (80-100); Monocytes Percent Auto 5.6 % (0.0-11.0); Neutrophils Absolute Auto 4.56 K/uL (1.7-7.0); Neutrophils Percent Auto 63.8 % (42.0-72.0); Platelet Count* 248 K/uL (140-440); RDW Coefficient of Variation % 12.3 % (11.5-15.5); Red Blood Count 4.82 m/uL (4.00-5.20); White Blood Count* 7.15 K/uL (4.50-11.00)
--- OUTSIDE RECORDS SUMMARY | 2024-08-31 19:40 | XMS_ITS | Encounter Summary ---
Author Organization [employer] Address [address], [place] [address] Care Team Providers Care Bus Escort Name Role Phone Margot Huang PA-C Primary Care Provider [phone] Reason for Visit * Procedure/Equipment (Routine) - Incomplete Specialty Diagnoses / Procedures Referred By Sukhi hassan Referred To Contact Diagnoses Right foot pain Procedures XR Foot Rt 3+ Views XR Foot Rt AP/MO/Lat Steve Stoll PA-C [address] [place] [address] Referral ID Status Reason Start Date Expiration Date V isits Requested Visits Authorized [id number] Incomplete 07/23/2024 10/22/2025 1 1 Encounter Details Date Type Department Care Team (Late st Contact Info) Description 07/23/2024 12:20 PM CDT Ancillary Procedure [facility] [address] Radiology [address] [place] [id number] Steve Stoll PA-C [address] [place] [address] Right foot pain Social History Tobacco Use [...] Care Team (Late st Contact Info) Description 09/08/2024 4:30 PM NIGHT MONITOR Telemedicine [facility] [address] [place], [place] [address] Rosa Maria Phillips MD [address] [place] [address] documented as of this encounter Procedures Procedure [...] limb documented in this encounter Care Teams Bus Escort Relationship Specialty Start Date End Date Margot Huang PA-C [address] [place] [address] PCP - General Physician Acute Care Occupational Therapist 11/13/16 documented as of this encounter
--- OUTSIDE RECORDS SUMMARY | 2024-08-31 19:40 | XMS_ITS | Encounter Summary ---
Author Organization [email or web address] Address [address], [place] [address] Care Team Providers Care Foundry Operator Name Role Phone Margot Huang PA-C Primary Care Provider [phone] Encounter Details Date Type Department Care Team (Late Contact Info) Description 11/27/2017 Consent for Procedure/Treatme nt [facility] Department INFORMED CONSENT RECORD Social History Tobacco [...] Department Care Team (Late Contact Info) Description 09/08/2024 4:30 PM FOUNDRY OPERATOR Telemedicine [facility] Medicine [address] [place], [place] [address] Rosa Maria Phillips MD [address] [place] [address] documented as of this encounter Visit Diagnoses Not on filedocumented in this encounter Additional Health Concerns Infection Onset Date Last Indicated Resolved Time R/O COVID19 05/20/2020 05/20/2020 05/27/2020 3:18 AM CDT documented as of this encounter Care Teams Foundry Operator Relationship Specialty Start Date End Date Margot Huang [place]-[facility] [address] [facility] [facility] [address] PCP - General Physician Registered Nurse Cardiac 11/13/16 documented as of this encounter
--- OUTSIDE RECORDS SUMMARY | 2024-08-31 19:40 | XMS_ITS | Encounter Summary ---
Author Organization [facility] Address [address], [place] [address] Care Team Providers Care Clothing Room Supervisor Name Role Phone Margot Huang PA-C Primary Care Provider [phone] Reason for Visit * Reason Comments Follow-up, NOS Entered automaticall y based on patient selection in [employer]. Encounter Details Date Type Department Care Team (Late Contact Info) Description 07/28/2024 4:30 PM CDT E-Visit [facility] [address] [facility] [place] [address] Steve Stoll PA-C [address] [place] [address] Chief Comp: Follow-up, NOS Social History Tobacco [...] (Late Contact Info) Description 09/08/2024 4:30 PM TREATING PLANT OPERATOR Telemedicine [facility] [address] [place] [address] Rosa Maria Phillips MD [address] [place], [place] [address] documented as of this encounter Visit Diagnoses Not on filedocumented in this encounter Care Teams Clothing Room Supervisor Relationship Specialty Start Date End Date Margot Huang PA-C [address] [place], [place] [id number] PCP - General Physician General Engineer 11/13/16 documented as of this encounter
--- OUTSIDE RECORDS SUMMARY | 2024-08-31 19:40 | XMS_ITS | Clinical Summary ---
Author Organization [facility] Address [address] [place] [address] Care Team Providers Care Neon Glass Bender Name Role Phone Clinic, [facility] Pr ovider Allergies Active Allergy Reactions Criticality Noted Date [...] needed for pain 20 tablet 11/08/2018 Active LORazepam (ATIVAN) 1 MG tablet Take 1 tablet (1 mg) by mouth 3 times daily as needed for anxiety. 12 tablet 08/26/2024 Active Active Problems Problem Noted Date Diagnosed Date ROSE MARY (generalized anxiety disorder) 08/28/2024 Panic attack 08/28/2024 Anxiety 08/23/2024 S/P primary low transverse 11/05/2018 Gestational hypertension [...] 2014 Overview (2014): 2008 LSIL <21 yrs 2010 ASCUS, Negative HPV 2011 Normal pap--routine screening per ASCCP guidelines 08/18/14 Normal pap. Encounters Date Type Department Care Team Description 08/31/2024 Telephone [facility] Service Line [address] [place] [phone] Kiki Chairez 08/28/2024 3:22 PM PROGRAM PROJECT ANALYST - 08/28/2024 6:57 PM [facility] Emergency [facility] Emergency Dept [address] [place] [address] Yvon Mack MD Generalized anxiety disorder with panic attacks Discharge Disposition: Home or Self Care 08/28/2024 Travel 08/27/2024 Telephone [facility] Service Line [address] [place] [phone] Caroline Peters 08/26/2024 7:06 PM PROGRAM PROJECT ANALYST - 08/26/2024 11:00 PM [facility] Emergency [facility] Emergency Dept [address] [place] [address] Juarez Gonzalez MD ROSE MARY (generalized anxiety disorder); Generalized anxiety disorder with panic attacks Discharge Disposition: Home or Self Care 08/26/2024 Travel 08/24/2024 Documentation Only [facility] [address] [facility] [address] [place] [address] Tarcey Whitley Advance Care Planning 08/23/2024 11:33 AM PROGRAM PROJECT ANALYST - 08/23/2024 4:11 PM [facility] Emergency [facility] Emergency Dept [address] [place] [address] Myles Murillo MD Anxiety about health; Anxiety disorder, unspecified type Discharge Disposition: Home or Self Care 08/23/2024 Travel from Last 3 Months Immunizations Name Administration Dates Next Due DTAP [...] on file Legal Sex Female 4:22 AM PROGRAM PROJECT ANALYST Gender Identity Not on file Sexual Orientation Not on file Last Filed Vital Signs Vital Sign Reading Time Taken Comments Blood Pressure 126/83 08/28/2024 6:52 PM PROGRAM PROJECT ANALYST Pulse 76 08/28/2024 6:52 PM PROGRAM PROJECT ANALYST Temperature 36.9 ??C (98.5 ??F) 08/28/2024 3:26 PM CS T Respiratory Rate 18 08/28/2024 3:26 PM PROGRAM PROJECT ANALYST Oxygen Saturation 99% 08/28/2024 6:53 PM PROGRAM PROJECT ANALYST Inhaled Oxygen Concentration - - Weight 80.3 kg (177 lb) 08/28/2024 3:26 PM PROGRAM PROJECT ANALYST Height 167.6 cm (5' 6) 08/28/2024 3:26 PM PROGRAM PROJECT ANALYST Body Mass Index 28.57 08/28/2024 3:26 PM PROGRAM PROJECT ANALYST Plan of Treatment Health Maintenance Due Date Last Done Comments ANNUAL REVIEW OF HM ORDERS 1991 HEPATITIS B IMMUNIZATION (2 of 3 - 3-dose series) 01/19/2003 12/22/2002 YEARLY PREVENTIVE VISIT 08/18/2015 08/18/20 14, 04/10/2012, 08/21/2010, Additional history exists PAP 08/21/2020 08/21/2017, 07/22, 04/10/2012, Additional history exists COVID-19 Vaccine ( season) 2024 INFLUENZA VACCINE (#1) 2024 DTAP/TDAP/TD IMMUNIZATION (8 - Td or Tdap) 10/02/2028 10/02/2018, 07/28/2009, 09/08/1996, Additional history exists ADVANCE CARE PLANNING 08/24/2029 08/24/2024, 019 RSV VACCINE (1 - 1-dose 75+ series) 2066 HPV IMMUNIZATION Completed 05/21/2008, 10/2007, 10/21/2007, Additional history exists HEPATITIS C SCREENING Completed [...] Procedure Name Priority Date/Time Associated Diagnosis Comments EKG 12-LEAD, TRACING ONLY STAT 08/28/2024 5:30 PM PROGRAM PROJECT ANALYST EKG 12-LEAD, TRACING ONLY STAT 08/23/2024 12:09 PM PROGRAM PROJECT ANALYST HIV ANTIGEN ANTIBODY COMBO Routine 04/16/2018 HEPATITIS C ANTIBODY Routine 08/18/2014 9:29 AM CDT Screen for STD (sexually transmitted disease) PAP IMAGED THIN LAYER SCREEN Routine 08/18/2014 12:00 AM CDT Routine General Medical Examination At A Health Care Facility Papanicolaou Smear Of Cervix With Low Grade Squamous Intraepithelial Lesion (Lgsil) from Last 3 Months or Most Recently Relevant to Health Maintenance Results * EKG 12-lead, tracing only (08/28/2024 5:30 PM PROGRAM PROJECT ANALYST) Only the most recent of2 resultswithin the time period is included. Systolic Blood Pressure mmHg RADIOLOGY RESULTS Diastolic Blood Pressure mmHg RADIOLOGY RESULTS Ventricular Rate 64 BPM RAD IOLOGY RESULTS Atrial Rate 64 BPM RADIOLOG Y RESULTS UT Interval 130 ms RADIOLOG Y RESULTS QRS Duration 80 ms RADIOLO GY RESULTS QT 430 ms RADIOLOGY RESULTS QTc 443 ms RADIOLOGY RESULTS P [place] 33 degrees RADIOLOGY RESULTS R AXIS 69 degrees RADIOLOGY RESULTS T [place] 38 degrees RADIOLOGY RESULTS Interpretation ECG Sinus rhythm Normal ECG When compared with ECG of 23-Aug-2024 12:09, No significant change was found Confirmed by - EMERGENCY ROOM, PHYSICIAN ([id number]), graphic editor ILEANA KYLE (Mundo) on 08/31/2024 7:21:29 AM RADIOLOGY RESULTS 08/28/2024 5:30 PM PROGRAM PROJECT ANALYST 08/31/2024 7:21 AM PROGRAM PROJECT ANALYST us Yvon Mack MD ECG ORDERABLES Edited Result - Final RADIOLOGY RESULTS * HIV Antigen Antibody Combo (04/16/2018) HIV Antigen Antibody Combo negative Blood specimen (specimen) us Patient Reported LAB - BLOOD ORDERABLES Final Re sult * Hepatitis C antibody (08/18/2014 9:29 AM CDT) Hepatitis C Antibody Negative NEG [facility] Blood specimen (specimen) 08/18/2014 9:29 AM CDT 08/18/2014 9:32 AM CDT us Wiliam Milla Dehler PA-C LAB - BLOOD ORDERABL ES Final Result [facility] [address] [address], [facility] * PAP imaged thin layer, screen (08/18/2014 12:00 AM CDT) PAP NIRMALA Aleman Report Patient Name: TURNER TIDWELL MR#: [id number] Specimen #: [id number] Collected: 08/18/2014 Received: 08/19/2014 Reported: 08/24/2014 12:44 [...] Vieyra ( ASCP) Processed and screened at [facility], [facility] CLINICAL HISTORY: LMP: 08/09/2014 Previous normal pap Date of Last Pap: 04/10/2012 Previous abnormal pap: lgsil, Papanicolaou Test Limitations: ??Cervical cytology is a screening test with limited sensitivity; regular screening is critical for cancer prevention; Pap tests are primarily effective for the diagnosis/preventi on of squamous cell carcinoma, not adenocarcinomas or other cancers. TESTING LAB LOCATION: [address] ??[address] COLLECTION SITE: Client: ??[facility] Location: MARIANA (Claudia ALEMAN Cytologic material (specimen) 08/18/2014 08/19/2014 11:48 AM CDT Wiliam Lagunas PA-C LAB - OPTIME CLINICA L SPECIMEN Final Result COPATH from Last 3 Months or Most Recently Relevant to Health Maintenance Care Teams Neon Glass Bender Relationship Specialty Start Date End Date [facility], [facility] [address] [place] [place] [address] PCP - General 08/23/24
--- OUTSIDE RECORDS SUMMARY | 2024-08-31 19:40 | XMS_ITS | Referral Summary ---
Author Organization [facility] Address [address] [place] [address] Care Team Providers Care Train Electronic Technician Name Role Phone Clinic, [facility] Primary Care Pr ovider Encounters Date Type Department Care Team Description 08/31/2024 Telephone [facility] Behavioral Service Line [address] [place] [phone] Kiki Chairez 08/28/2024 Travel 08/28/2024 3:22 PM SHIFT PRODUCTION SUPERVISOR - 08/28/2024 6:57 PM SHIFT PRODUCTION SUPERVISOR Emergency [facility] Emergency Dept [address] [place] [address] Yvon Mack MD Generalized anxiety disorder with panic attacks Discharge Disposition: Home or Self Care 08/27/2024 Telephone [facility] Behavioral Service Line [address] [place] [phone] Caroline Peters 08/26/2024 Travel 08/26/2024 7:06 PM SHIFT PRODUCTION SUPERVISOR - 08/26/2024 11:[address] [facility] Emergency [facility] Emergency Dept [address] [place] [address] uJarez Gonzalez MD ROSE MARY (generalized anxiety disorder); Generalized anxiety disorder with panic attacks Discharge Disposition: Home or Self Care 08/24/2024 Documentation Only [facility] [address] [facility] [place] [address] Tracey Whitley Advance Care Planning 08/23/2024 Travel 08/23/2024 11:33 AM SHIFT PRODUCTION SUPERVISOR - 08/23/2024 4:11 PM SHIFT PRODUCTION SUPERVISOR Emergency [facility] Emergency Dept [address] [place] [address] Myles Murillo MD Anxiety about health; Anxiety disorder, unspecified type Discharge Disposition: Home or Self Care from Last 3 Months Allergies Active Allergy Reactions Criticality Noted Date [...] Active Problems Problem Noted Date Diagnosed Date RSOE MARY (generalized anxiety disorder) 08/28/2024 Panic attack [...] on file Legal Sex Female 4:22 AM SHIFT PRODUCTION SUPERVISOR Gender Identity Not on file Sexual Orientation Not on file Last Filed Vital Signs Vital Sign Reading Time Taken Comments Blood Pressure 126/83 08/28/2024 6:52 PM SHIFT PRODUCTION SUPERVISOR Pulse 76 08/28/2024 6:52 PM SHIFT PRODUCTION SUPERVISOR Temperature 36.9 ??C (98.5 ??F) 08/28/2024 3:26 PM CS T Respiratory Rate 18 08/28/2024 3:26 PM SHIFT PRODUCTION SUPERVISOR Oxygen Saturation 99% 08/28/2024 6:53 PM SHIFT PRODUCTION SUPERVISOR Inhaled Oxygen Concentration - - Weight 80.3 kg (177 lb) 08/28/2024 3:26 PM SHIFT PRODUCTION SUPERVISOR Height 167.6 cm (5' 6) 08/28/2024 3:26 PM SHIFT PRODUCTION SUPERVISOR Body Mass Index 28.57 08/28/2024 3:26 PM SHIFT PRODUCTION SUPERVISOR Plan of Treatment Not on file Procedures Procedure Name Priority Date/Time Associated Diagnosis Comments EKG 12-LEAD, TRACING ONLY STAT 08/28/2024 5:30 PM SHIFT PRODUCTION SUPERVISOR EKG 12-LEAD, TRACING ONLY STAT 08/23/2024 12:09 PM SHIFT PRODUCTION SUPERVISOR HIV ANTIGEN ANTIBODY COMBO Routine 04/16/2018 HEPATITIS C ANTIBODY Routine 08/18/2014 9:29 AM CDT Screen for STD (sexually transmitted disease) PAP IMAGED THIN LAYER SCREEN Routine 08/18/2014 12:00 AM CDT Routine General Medical Examination At A [facility] Facility Papanicolaou Smear Of Cervix With Low Grade Squamous Intraepithelial Lesion (Lgsil) from Last 3 Months or Most Recently Relevant to Health Maintenance Results * EKG 12-lead, tracing only (08/28/2024 5:30 PM SHIFT PRODUCTION SUPERVISOR) Only the most recent of2 resultswithin the time period is included. Systolic Blood Pressure mmHg RADIOLOGY RESULTS Diastolic Blood Pressure mmHg RADIOLOGY RESULTS Ventricular Rate 64 BPM RAD IOLOGY RESULTS Atrial Rate 64 BPM RADIOLOG Y RESULTS NC Interval 130 ms RADIOLOG Y RESULTS QRS Duration 80 ms RADIOLO GY RESULTS QT 430 ms RADIOLOGY RESULTS QTc 443 ms RADIOLOGY RESULTS P [place] 33 degrees RADIOLOGY RESULTS R AXIS 69 degrees RADIOLOGY RESULTS T [place] 38 degrees RADIOLOGY RESULTS Interpretation ECG Sinus rhythm Normal ECG When compared with ECG of 23-Aug-2024 12:09, No significant change was found Confirmed by - EMERGENCY ROOM, PHYSICIAN ([id number]), supervising editor news reel ILEANA KYLE (Mundo) on 08/31/2024 7:21:29 AM RADIOLOGY RESULTS 08/28/2024 5:30 PM SHIFT PRODUCTION SUPERVISOR 08/31/2024 7:21 AM SHIFT PRODUCTION SUPERVISOR us Yvon Mack MD ECG ORDERABLES Edited Result - Final RADIOLOGY RESULTS * HIV Antigen Antibody Combo (04/16/2018) HIV Antigen Antibody Combo negative Blood specimen (specimen) us Patient Reported LAB - BLOOD ORDERABLES Final Re sult * Hepatitis C antibody (08/18/2014 9:29 AM CDT) Hepatitis C Antibody Negative NEG [facility] Blood specimen (specimen) 08/18/2014 9:29 AM CDT 08/18/2014 9:32 AM CDT us Wiliam Lagunas PA-C LAB - BLOOD ORDERABL ES Final Result [facility] [address] [place], [place] [id number] [place] [address] * PAP imaged thin layer, screen (08/18/2014 12:00 AM CDT) PAP NIRMALA Zaldivar Report Patient Name: TURNER TIDWELL MR#: [id number] Specimen #: [id number] Collected: 08/18/2014 Received: 08/19/2014 Reported: 08/24/2014 12:44 [...] Vieyra ( ASCP) Processed and screened at [facility], [facility] CLINICAL HISTORY: LMP: 08/09/2014 Previous normal pap Date of Last Pap: 04/10/2012 Previous abnormal pap: lgsil, Papanicolaou Test Limitations: ??Cervical cytology is a screening test with limited sensitivity; regular screening is critical for cancer prevention; Pap tests are primarily effective for the diagnosis/preventi on of squamous cell carcinoma, not adenocarcinomas or other cancers. TESTING LAB LOCATION: [facility] [address] [place], [place] ??[address] COLLECTION SITE: Client: ??[facility] Location: [facility] (R) COPATH Cytologic material (specimen) 08/18/2014 08/19/2014 11:48 AM CDT Wiliam Lagunas PA-C LAB - OPTIME CLINICA L SPECIMEN Final Result COPATH from Last 3 Months or Most Recently Relevant to Health Maintenance Care Teams Train Electronic Technician Relationship Specialty Start Date End Date Clinic, [facility] [address] [place] [address] PCP - General 08/23/24
--- OUTSIDE RECORDS SUMMARY | 2024-08-31 19:40 | XMS_ITS | Encounter Summary ---
Author Organization [facility] Address [address] [place] [address] Care Team Providers Care Substance Abuse Technician Name Role Phone Margot Huang PA-C Primary Care Provider [phone] Reason for Referral * Consult/Transfer Care (Routine) - New Request Specialty Diagnoses / Procedures Referred By Sukhi hassan Referred To Contact Diagnoses Anxiety (HRC) Rosa Maria Phillips MD [address] [place] [address] Referral ID Status Reason Start Date Expiration Date V isits Requested Visits Authorized [id number] New Request 08/19/2024 11/18/2025 1 1 Scheduling Instructions Your clinician has recommended an appointment with Behavioral Health. You may call [phone] to schedule your appointment. This recommended service/s [...] Description 08/19/2024 2:30 PM CDT [facility] [address] [place], [place] [address] Rosa Maria Phillips MD [address] [place] [address] Anxiety (HRC) (Primary Dx); Intractable [...] List Diagnosis ROSE MARY (generalized anxiety disorder) ([facility]) History of depression Migraine with aura and without status migrainosus, not intractable S/P primary low transverse Gestational hypertension PAST MEDICAL HISTORY : Past Medical History: Diagnosis Date Bipolar affect, depressed ([facility]) Bipolar affective disorder ([facility]) 07/28/2009 Cellulitis of right lower extremity 07/08/2024 Treated at outside urgent care - treated with oral Keflex QID x 10 days Depression ([facility]) Posttraumatic stress disorder ([facility]) 07/28/2009 Right foot pain 07/23/2024 Patient thought [...] level: Not on file 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 [address] Rosa Maria Phillips MD [address] [place], [place] [phone] Scheduled Referrals Name Type Priority Associated Diagnoses Orde r Schedule Behavioral Health Adult/Peds Referral Routine Anxiety (HRC) Ordered: 08/19/2024 documented as of this encounter Visit Diagnoses Diagnosis Anxiety (HRC)- Primary Anxiety state, unspecified Intractable migraine with aura without status migrainosus Migraine with aura, with intractable migraine, so stated, without mention of status migrainosus documented in this encounter Care Teams Substance Abuse Technician Relationship Specialty Start Date End Date Margot Huang PAKeenanC [address] [place] [address] PCP - General Physician Sugar Boiler 11/13/16 documented as of this encounter
--- OUTSIDE RECORDS SUMMARY | 2024-08-31 19:40 | XMS_ITS | Encounter Summary ---
Author Organization [facility] Address [address] [place] [address] Care Team Providers Care Manager Cardiac Name Role Phone Margot Huang PA-C Primary Care Provider [phone] Reason for Visit * Reason Comments Leg Pain Ever since having ce llulitis on her right leg, she gets weird sensations. She went to the ER in [place] and was told she could possibly have MS. She does get tingling sensations in her feet. Encounter Details Date Type Department Care Team (Late st Contact Info) Description 08/06/2024 9:40 AM CDT [facility] [address] [place], [place] [phone] Robert Valdez, [facility] [address] [place], [place] [phone] Generalized anxiety disorder with panic attacks (HRC) [...] this encounter Progress Notes * Robert Valdez, [facility] - 08/06/2024 9:40 AM CDT Chief Complaint Patient presents with Leg Pain Ever since having cellulitis on her right leg, she gets weird sensations. 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 documented in this encounter Plan of Treatment Upcoming Encounters Date Type Department Care Team (Late st Contact Info) Description 09/08/2024 4:30 PM REGULATORY SUBMISSIONS ASSOCIATE Telemedicine [facility] [address] [place], [place] [address] Rosa Maria Phillips MD [address] [place] [address] documented as of this encounter Visit Diagnoses Diagnosis Generalized anxiety disorder with panic attacks (HRC)- Primary History of depression Personal history of other mental disorder documented in this encounter Care Teams Manager Cardiac Relationship Specialty Start Date End Date Margot Huang PA-C [address] [place] [address] PCP - General Physician Optical Lab Technician 11/13/16 documented as of this encounter
--- OUTSIDE RECORDS SUMMARY | 2024-08-31 19:40 | XMS_ITS | Encounter Summary ---
Author Organization [facility] Address [address] [place] [address] Care Team Providers Care Sales Operations Analyst Name Role Phone Margot Huang PA-C Primary Care Provider [phone] Encounter Details Date Type Department Care Team (Late Contact Info) Description 08/26/2024 3:30 PM RACE STARTER Lab Visit [facility] [address] [place], [place] [phone] Anxiety (HRC); Palpitations Social History Tobacco Use Types Packs/Day Years [...] (Late Contact Info) Description 09/08/2024 4:30 PM RACE STARTER Telemedicine [facility] [address] [place], [place] [address] Rosa Maria Phillips MD [address] [place], [place] [address] documented as of this encounter Procedures Procedure Name Priority Date/Time Associated Diagnosis Comments CBC AND DIFFERENTIAL PANEL Routine 08/26/2024 3:30 PM RACE STARTER Anxiety (HRC) Palpitations COMPLETE BLOOD COUNT-W/DIFF Routine 08/26/2024 3:30 PM RACE STARTER Anxiety (HRC) Palpitations TSH, SENSITIVE Routine 08/26/2024 3:30 PM RACE STARTER Anxiety (HRC) Palpitations BASIC METABOLIC PANEL Routine 08/26/2024 3:30 PM RACE STARTER Anxiety (HRC) Palpitations documented in this encounter Results * Complete Blood Count-W/Diff (08/26/2024 3:30 PM RACE STARTER) WBC 6.5 3.5 - 10.5 x10(9)/L 08/26/2024 3:36 PM RACE STARTER [facility] RBC 4.95 3.90 - 5.03 x10(12)/L 08/26/2024 3:36 PM RACE STARTER [facility] Hemoglobin 14.8 12.0 - 15.5 g/dL 08/26/2024 3:36 PM RACE STARTER [facility] HCT 43.5 34.9 - 44.5 % 08/26/2024 3:36 PM RACE STARTER [facility] MCV 87.9 80.0 - 100.0 fL 08/26/2024 3:36 PM RACE STARTER [facility] MCH 29.9 27.6 - 33.3 pg 08/26/2024 3:36 PM RACE STARTER [facility] MCHC 34.0 31.5 - 35.2 g/dL 08/26/2024 3:36 PM RACE STARTER [facility] RDW 13.1 11.9 - 15.5 % 08/26/2024 3:36 PM RACE STARTER [facility] Platelets 264 150 - 450 x10(9)/L 08/26/2024 3:36 PM RACE STARTER [facility] Neutrophil Absolute 4.5 1.7 - 7.0 10(9)/L 08/26/2024 3:36 PM RACE STARTER [facility] Lymphocyte Absolute 1.4 1.0 - 4.8 10(9)/L 08/26/2024 3:36 PM RACE STARTER [facility] Monocyte Absolute 0.5 0.2 - 0.9 10(9)/L 08/26/2024 3:36 PM RACE STARTER [facility] Eosinophil Absolute 0.0 0.0 - 0.5 10(9)/L 08/26/2024 3:36 PM RACE STARTER [facility] Basophil Absolute 0.0 0.0 - 0.3 10(9)/L 08/26/2024 3:36 PM RACE STARTER [facility] Blood Venipuncture / Unknown 08/26/2024 3:30 PM RACE STARTER 08/26/2024 3:30 PM RACE STARTER Rosa Maria Phillips MD [facility] [address] [place] [address] * TSH (08/26/2024 3:30 PM RACE STARTER) Pathologist [facility] TSH, Sensitive 1.10 0.30 - 4.50 uIU/mL 08/26/2024 9:42 PM RACE STARTER [facility] Blood Venipuncture / Unknown 08/26/2024 3:30 PM RACE STARTER 08/26/2024 3:30 PM RACE STARTER Rosa Maria Phillips MD [facility] [address] * (ABNORMAL) Basic Metabolic Panel (08/26/2024 3:30 PM RACE STARTER) Pathologist [facility] Sodium 140 136 - 145 mmol/L 08/27/2024 10:07 AM [facility] Potassium 3.6 3.5 - 5.1 mmol/L 08/27/2024 10:07 AM [facility] Chloride 110(H) 98 - 109 mmol/L 08/27/2024 10:07 AM [facility] CO2 21 20 - 29 mmol/L 08/27/2024 10:07 AM [facility] Anion Gap 9 6 - 16 mmol/L 08/27/2024 10:07 AM [facility] Calcium 9.6 8.4 - 10.4 mg/dL 08/27/2024 10:07 AM [facility] BUN 9 7 - 26 mg/dL 08/27/2024 10:07 AM [facility] Creatinine 0.72 0.55 - 1.02 mg/dL 08/27/2024 10:07 AM [facility] Glucose 102(H) 70 - 100 mg/dL 08/27/2024 10:07 AM [facility] Comment:The given reference range is for the fasting state. Non-fasting reference range for glucose is 70 - 180 mg/dL. GFR, Estimated >60 >60 mL/min/1.7 3m2 08/27/2024 10:07 AM [facility] Hours Fasting 0.0 8 - 12 Hours 08/27/2024 10:07 AM [facility] Blood Venipuncture / Unknown 08/26/2024 3:30 PM RACE STARTER 08/26/2024 3:30 PM RACE STARTER Rosa Maria Phillips MD LAB[facility] [address] [place] [address] documented in this encounter Visit Diagnoses Diagnosis Anxiety (HRC) Anxiety state, unspecified Palpitations documented in this encounter Care Teams Sales Operations Analyst Relationship Specialty Start Date End Date Margot Huang PA-C [address] [place] [address] PCP - General Physician Certified Solid Waste Facility Operator 11/13/16 documented as of this encounter
--- OUTSIDE RECORDS SUMMARY | 2024-08-31 19:40 | XMS_ITS | Encounter Summary ---
Author Organization [facility] Address [address] [place] [address] Care Team Providers Care Continuous Crusher Operator Name Role Phone Margot Huang PA-C Primary Care Provider [phone] Reason for Visit * Reason Comments ANXIETY Wk 3 lexaproProgress ively worse. Atavan only helping for 2 hr.sHx health anxiety DIZZINESS All the time - BREATHING PROBLEM fast Encounter Details Date Type Department Care Team (Late st Contact Info) Description 08/26/2024 3:00 PM IMAGING ANALYST [facility] [address] [place], [place] [address] Rosa Maria Phillips MD [address] [place], [place] [address] Anxiety (HRC) (Primary Dx); Palpitations Social History Tobacco Use Types Packs/Day [...] Sign Reading Time Taken Comments Blood Pressure 128/84 08/26/2024 3:02 PM IMAGING ANALYST Pulse 109 08/26/2024 3:02 PM IMAGING ANALYST Temperature - - Respiratory Rate - - Oxygen Saturation - - Inhaled Oxygen Concentration - - Weight 80.3 kg (177 lb) 08/26/2024 3:02 PM IMAGING ANALYST Height - - Body Mass Index 28.57 08/13/2024 8:55 AM CDT documented in this encounter Progress Notes * Rosa Maria Phillips MD - 08/26/2024 3:00 PM CST CHIEF COMPLAINT: Chief Complaint Patient presents with ANXIETY Wk 3 lexapro Progressively worse. Atavan only helping for 2 hr.s health anxiety DIZZINESS All the time - BREATHING PROBLEM fast SUBJECTIVE : Kacey Hines is an 34 y.o. female who presents for evaluation of chest pain and shortness a breath. Patient has a known history of severe anxiety and was seen by myself last week. She had recentlyincreased her Lexapro from 10-20 mg. She was complaining of heart racing last week and I did place her on a low-dose atenolol at 12.5 mg and she did not take the medication. She does have a prescription for hydroxyzine 10 mg and she is use this on a rare occasion and has not noticed any improvement. She was seen in the emergency room August 23 2024 with chest pain and shortness a breath. An EKG was done and was unremarkable. Reassurance was given. She has been seen by our mental health team and is planning on following up with her own mental health provider. I would urge that she try to get in to be seen as soon as she is able. She is concerned that she will quit breathing at night. She does live with her boyfriend and reassurance was given. I did discuss some visualizations and reassurance was PROBLEM LIST: Patient Active Problem List Diagnosis ROSE MARY (generalized anxiety disorder) ([facility]) History of depression Migraine with aura and without status migrainosus, not intractable S/P primary low transverse Gestational hypertension PAST MEDICAL HISTORY : Past Medical History: Diagnosis Date Bipolar affect, depressed ([facility]) Bipolar affective disorder ([facility]) 07/28/2009 Cellulitis of right lower extremity 07/08/2024 Treated at outside urgent care - treated with oral Keflex QID x 10 days Depression ([facility]) Posttraumatic stress disorder ([facility]) 07/28/2009 Right foot pain 07/23/2024 Patient thought [...] level: Not on file 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 (Patient not taking: Reported on 08/26/2024) 45 Tablet 3 escitalopram oxalate (LEXAPRO) 20 MG tablet Take 1 Tablet (20 mg) by mouth daily. 30 Tablet 3 hydrOXYzine HCl (ATARAX) 25 MG tablet Take 1 Tablet (25 mg) by mouth every 6 hours as needed. 30 Tablet 1 LORazepam (ATIVAN) 0.5 MG tablet Take 1 Tablet (0.5 mg) by mouth every 6 hours as needed for Anxiety. 15 Tablet 0 rizatriptan (MAXALT) 10 MG tablet [...] systems are negative. OBJECTIVE : Gen.: Alert, she is very anxious and fidgety Vital Signs: BP 128/84 (BP Location: Right Arm, BP Cuff Size: Large) Pulse (!) 109 Wt 177 lb (80.3 kg) LMP 07/22/2024 (Exact Date) BMI 28.57 kg/m?? Eyes: PERRLA, full EOM. Ears: Normal pinnae, clear canals,TM's with no redness or bulging. Nose: Patent, without deformity. Throat: Moist mucous membranes without lesions, erythema, or exudate. Neck: Supple, without masses, lymphadenopathy or tenderness. Respiratory: Normal respiratory effort. Lungs are clear to auscultation with good breath sounds bilaterally. Heart: RR without murmurs, rubs, or gallops. No carotid bruits Extremities: No cyanosis , nontender, no edema. Neurologic: Alert, oriented x3, nonfocal. LABS : ASSESSMENT /PLAN : ICD-10-CM 1. Anxiety (HRC) F41.9 Complete Blood Count -W/Diff Basic Metabolic Panel TSH 2. Palpitations R00.2 Complete Blood Count -W/Diff Basic Metabolic Panel TSH Patient will be contacted with test results. I did give her some parameters that if her heart rate was greater than 175 or less than 40 that she should be seen. I did discuss that variability is normal and a normal reaction to anxiety and stress ING ANALYST documented in this encounter Plan of Treatment Upcoming Encounters Date Type Department Care Team (Late st Contact Info) Description 09/08/2024 4:30 PM IMAGING ANALYST [facility] [address] [place] [address] Rosa Maria Phillips MD [address] [place] [address] documented as of this encounter Results * TSH (08/26/2024 3:30 PM IMAGING ANALYST) TSH, Sensitive 1.10 0.30 - 4.50 uIU/mL 08/26/2024 9:42 PM IMAGING ANALYST [facility] Blood Venipuncture / Unknown 08/26/2024 3:30 PM IMAGING ANALYST 08/26/2024 3:30 PM IMAGING ANALYST Rosa Maria Phillips MD LAB_1 [facility] [address] [place] [address], [facility] * (ABNORMAL) Basic Metabolic Panel (08/26/2024 3:30 PM IMAGING ANALYST) Pathologist [facility] Sodium 140 136 - 145 mmol/L 08/27/2024 10:07 AM [facility] Potassium 3.6 3.5 - 5.1 mmol/L 08/27/2024 10:07 AM [facility] Chloride 110(H) 98 - 109 mmol/L 08/27/2024 10:07 AM [facility] CO2 21 20 - 29 mmol/L 08/27/2024 10:07 AM [facility] Anion Gap 9 6 - 16 mmol/L 08/27/2024 10:07 AM [facility] Calcium 9.6 8.4 - 10.4 mg/dL 08/27/2024 10:07 AM [facility] BUN 9 7 - 26 mg/dL 08/27/2024 10:07 AM [facility] Creatinine 0.72 0.55 - 1.02 mg/dL 08/27/2024 10:07 AM [facility] Glucose 102(H) 70 - 100 mg/dL 08/27/2024 10:07 AM [facility] Comment:The given reference range is for the fasting state. Non-fasting reference range for glucose is 70 - 180 mg/dL. GFR, Estimated >60 >60 mL/min/1.7 3m2 08/27/2024 10:07 AM IMAGING ANALYST [facility] Hours Fasting 0.0 8 - 12 Hours 08/27/2024 10:07 AM IMAGING ANALYST [facility] Blood Venipuncture / Unknown 08/26/2024 3:30 PM IMAGING ANALYST 08/26/2024 3:30 PM IMAGING ANALYST Rosa Maria Phillips MD LAB_1 Performing Organization Address City/State/[facility] Co de Phone Number [facility] [address] [place] [phone] documented in this encounter Visit Diagnoses Diagnosis Anxiety (HRC)- Primary Anxiety state, unspecified Palpitations documented in this encounter Care Teams Continuous Crusher Operator Relationship Specialty Start Date End Date Margot Huang PA-C [address] [place] [address] PCP - General Physician Reefer Engineer 11/13/16 documented as of this encounter
--- OUTSIDE RECORDS SUMMARY | 2024-08-31 19:40 | XMS_ITS | Encounter Summary ---
Author Organization [employer] Address [address], [place] [address] Care Team Providers Care Comprehensive Advisor Name Role Phone Margot Huang PA-C Primary Care Provider [phone] Reason for Visit * Procedure/Equipment (Routine) - Incomplete Specialty Diagnoses / Procedures Referred By Sukhi t Referred To Contact Diagnoses Right calf pain Procedures US Venous Right Lower Extrem Doppler Antonia Ya PA-C [address] [place] [address] Referral ID Status Reason Start Date Expiration Date V isits Requested Visits Authorized [id number] Incomplete 08/11/2024 11/10/2025 1 1 Encounter Details Date Type Department Care Team (Late st Contact Info) Description 08/11/2024 1:00 PM CDT Ancillary Procedure [facility] [address] [place] [phone] Antonia Ya PA-C [address] [place] [address] Right calf pain Social History [...] st Contact Info) Description 09/08/2024 4:30 PM DEVELOPMENTAL MATHEMATICS INSTRUCTOR [facility] [address] [place] [place] [address] Rosa Maria Phillips MD [address] [place] [address] documented as of this encounter Procedures Procedure [...] cannotbe completely excluded by this technique. Antonia SWARTZ documented in this encounter Visit Diagnoses Diagnosis Right calf pain documented in this encounter Care Teams Comprehensive Advisor Relationship Specialty Start Date End Date Margot Huang PA-C [address] [place] [address] PCP - General Physician Residential Service Technician 11/13/16 documented as of this encounter
--- OUTSIDE RECORDS SUMMARY | 2024-08-31 19:40 | XMS_ITS | Encounter Summary ---
Author Organization [facility] Address [address] [place] [address] Care Team Providers Care Market Sales Manager Name Role Phone Margot Huang PA-C Primary Care Provider [phone] Encounter Details Date Type Department Care Team (Late Contact Info) Description 08/24/2024 E-Visit [facility] [address] [place] [address] Mychart, [place] [address] Social History Tobacco Use Types Packs/Day Years [...] (Late Contact Info) Description 09/08/2024 4:30 PM FILM MOUNTER Telemedicine [facility] [address] [place], [place] [address] Rosa Maria Phillips MD [address] [place], [place] [address] documented as of this encounter Visit Diagnoses Not on filedocumented in this encounter Care Teams Market Sales Manager Relationship Specialty Start Date End Date Margot Huang PA-C [address] [place] [address] PCP - General Physician Automotive Tire Worker 11/13/16 documented as of this encounter
--- OUTSIDE RECORDS SUMMARY | 2024-08-31 19:40 | XMS_ITS | Clinical Summary ---
Author Organization [employer] [facility] Address [address], [place] [address] Care Team Providers Care Lance Crewmember/Mlrs Sergeant Name Role Phone Margot Huang PA-C Primary Care Provider [phone] Source Comments You are receiving this document as you are listed as the primary care provider,follow-up provider, or the patient has been referred to you for consultation.This is in compliance with the Medicare andDet[facility] Memorial Hospitalcaid EHR Incentive Program,which states Providers who transition their patient to another setting of careor provider of care or refers their patient to another provider of care shouldprovide summary care record for each transition of care or referral. [employer] Allergies Active Allergy Reactions Criticality Noted Date Comments Sulfa Antibiotics Hives High 10/26/2015 Medications Medication Sig Dispensed Refills Start Date End Date Status escitalopram oxalate (LEXAPRO) 20 MG tabletIndication s:Anxiety (HRC) Take 1 Tablet (20 mg) by mouth daily. 30 Tablet 3 4 08/13/20 25 Active LORazepam (ATIVAN) 0.5 MG tabletIndication s:Anxiety (HRC) [...] mouth daily. 45 Tablet 3 4 08/19/20 Active Additional Information Patient not taking.Reported on 08/26/2024 Magnesium 500 MG 08/13/20 Discontinued(*Re solved Condition) [...] per month. 9 Tablet 11 4 08/13/20 Discontinued(*Pa tient decision or formulary issue) cephalexin (KEFLEX) 500 MG capsule Take 1 Capsule (500 mg) by mouth 4 times a day. 4 08/13/20 Discontinued(*Re solved Condition) mupirocin (BACTROBAN) 2 % ointment Apply topically two times a day. 4 08/13/20 Discontinued(*Re solved Condition) sulfamethoxazole -trimethoprim (BACTRIM DS) 800-160 MG tablet Take 1 Tablet by mouth two times a day. 4 08/13/20 Discontinued(*Pa tient decision or formulary issue) escitalopram (LEXAPRO) 10 MG tabletIndication s:Generalized anxiety disorder with panic attacks (HRC) Take 1/2 tablet daily for one week and then increase to 1 tablet daily. 30 Tablet 1 4 10/24/20 24 Discontinued naproxen (NAPROSYN) 500 MG tablet Take 1 Tablet (500 mg) by mouth two times daily as needed for Pain for up to 7 days. 14 Tablet 4 08/18/20 24 propranolol (INDERAL) 20 MG tabletIndication s:Anxiety (HRC) 20-40mg twice daily 120 Tablet 3 4 08/19/20 24 Discontinued predniSONE (DELTASONE) 20 MG tabletIndication s:Radiculopathy of lumbar region Take 2 Tablets (40 mg) by mouth daily. 14 Tablet 4 08/26/20 24 Discontinued Active Problems Problem Noted Date [...] Encounters Date Type Department Care Team Description 08/26/2024 3:30 PM PROOFER APPRENTICE Lab Visit [facility] [address] [place] [address] Anxiety (HRC); Palpitations 08/26/2024 3:00 PM PROOFER APPRENTICE [facility] [address] [place] [address] Rosa Maria Phillips MD Anxiety (HRC) (Primary Dx); Palpitations 08/26/2024 1:00 PM PROOFER APPRENTICE [facility] [address] [place] [address] Rosa Maria Phillips MD Chief Comp: Follow-up, NOS 08/26/[address] [facility] [address] [facility] [place] [address] Margot Huang PA-C ANXIETY 08/24/2024 4:00 PM PROOFER APPRENTICE Telemedicine [facility] [address] [place] [address] Swati Murray, DOCTOR OF DENTAL SURGERY, PARKING LOT SIGNALER ROSE MARY (generalized anxiety disorder) (HRC) (Primary Dx) 08/24/2024 E-Visit [facility] [address] [place], [place] [address] Mychart, Generic Provider 08/19/2024 2:30 PM CDT Office Visit [facility] [address] [place] [address]. [place] [address] Rosa Maria Phillips MD Anxiety (HRC) (Primary Dx); Intractable migraine with aura without status migrainosus 08/17/2024 3:30 PM CDT E-Visit [address] [address] Jim Esparza PA-C Chief Comp: QUESTIONS, GENERAL 08/13/2024 9:00 AM CDT Office Visit [address] [address] Jim Esparza PA-C Anxiety (HRC) (Primary Dx); Radiculopathy of lumbar region; Sacroiliitis (HRC) 08/11/2024 1:00 PM CDT Ancillary Procedure [facility] [address] [place] [phone] Antonia Ya PA-C Right calf pain 08/11/2024 12:40 PM CDT Office Visit [place] [address] [facility] [address] [place] [phone] Antonia Ya PA-C Low back pain, unspecified back pain laterality, unspecified chronicity, unspecified whether sciatica present; Right calf pain 08/06/2024 9:40 AM CDT [facility] [address] [place] [address] Robert Valdez, [facility] Generalized anxiety disorder with panic attacks (HRC) (Primary Dx); History of depression 07/28/2024 4:30 PM CDT E-Visit [facility] [address] [place] [address] Steve Stoll PA-C Chief Comp: Follow-up, NOS 07/23/2024 12:20 PM CDT Ancillary Procedure [facility] [address] Radiology [address] [place] [address] Steve Stoll PA-C Right foot pain 07/23/2024 7:30 AM CDT Telemedicine [facility] [address] [place] [address] Steve Stoll PA-C Right foot pain (Primary Dx); Cellulitis of right lower extremity 07/15/2024 Nurse Triage [facility] [address] [place] [address] Leobardo Lloyd X CELLULITIS from Last 3 Months Immunizations Name Administration [...] Comments Blood Pressure 128/84 08/26/2024 3:02 PM PROOFER APPRENTICE Pulse 109 08/26/2024 3:02 PM PROOFER APPRENTICE Temperature 36.7 ??C (98.1 ??F) 08/11/2024 10:19 AM C DT Respiratory Rate 16 08/13/2024 8:55 AM CDT Oxygen Saturation 98% 08/11/2024 10:19 AM CDT Inhaled Oxygen Concentration - - Weight 80.3 kg (177 lb) 08/26/2024 3:02 PM PROOFER APPRENTICE Height 167.6 cm (5' 6) 08/13/2024 8:55 AM CDT Body Mass Index 28.57 08/13/2024 8:55 AM CDT Plan of Treatment Upcoming Encounters Date Type Department Care Team (Late st Contact Info) Description 09/08/2024 4:30 PM PROOFER APPRENTICE Telemedicine [facility] [address] [place], [place] [address] Rosa Maria Phillips MD [address] [place], [place] [address] Health Maintenance Due Date Last Done Comments [...] Procedure Name Priority Date/Time Associated Diagnosis Comments COMPLETE BLOOD COUNT-W/DIFF Routine 08/26/2024 3:30 PM PROOFER APPRENTICE Anxiety (HRC) Palpitations TSH, SENSITIVE Routine 08/26/2024 3:30 PM PROOFER APPRENTICE Anxiety (HRC) Palpitations BASIC METABOLIC PANEL Routine 08/26/2024 3:30 PM PROOFER APPRENTICE Anxiety (HRC) Palpitations CBC AND DIFFERENTIAL PANEL Routine 08/26/2024 3:30 PM PROOFER APPRENTICE Anxiety (HRC) Palpitations US VENOUS RIGHT LOWER EXTREM DOPPLER STAT [...] AG/AB 4TH GEN Routine 10/02/2017 1:40 PM PROOFER APPRENTICE Encounter for supervision of normal first in first trimester PAP TEST, ROUTINE Routine 08/21/2017 11: 14 AM CDT Screening for malignant neoplasm of cervix from Last 3 Months or Most Recently Relevant to Health Maintenance Results * Complete Blood Count-W/Diff (08/26/2024 3:30 PM PROOFER APPRENTICE) WBC 6.5 3.5 - 10.5 x10(9)/L 08/26/2024 3:36 PM PROOFER APPRENTICE [facility] RBC 4.95 3.90 - 5.03 x10(12)/L 08/26/2024 3:36 PM PROOFER APPRENTICE [facility] Hemoglobin 14.8 12.0 - 15.5 g/dL 08/26/2024 3:36 PM PROOFER APPRENTICE [facility] HCT 43.5 34.9 - 44.5 % 08/26/2024 3:36 PM PROOFER APPRENTICE [facility] MCV 87.9 80.0 - 100.0 fL 08/26/2024 3:36 PM PROOFER APPRENTICE [facility] MCH 29.9 27.6 - 33.3 pg 08/26/2024 3:36 PM PROOFER APPRENTICE [facility] MCHC 34.0 31.5 - 35.2 g/dL 08/26/2024 3:36 PM PROOFER APPRENTICE [facility] RDW 13.1 11.9 - 15.5 % 08/26/2024 3:36 PM PROOFER APPRENTICE [facility] Platelets 264 150 - 450 x10(9)/L 08/26/2024 3:36 PM PROOFER APPRENTICE [facility] Neutrophil Absolute 4.5 1.7 - 7.0 10(9)/L 08/26/2024 3:36 PM PROOFER APPRENTICE [facility] Lymphocyte Absolute 1.4 1.0 - 4.8 10(9)/L 08/26/2024 3:36 PM PROOFER APPRENTICE [facility] Monocyte Absolute 0.5 0.2 - 0.9 10(9)/L 08/26/2024 3:36 PM PROOFER APPRENTICE [facility] Eosinophil Absolute 0.0 0.0 - 0.5 10(9)/L 08/26/2024 3:36 PM PROOFER APPRENTICE [facility] Basophil Absolute 0.0 0.0 - 0.3 10(9)/L 08/26/2024 3:36 PM PROOFER APPRENTICE [facility] Blood Venipuncture / Unknown 08/26/2024 3:30 PM PROOFER APPRENTICE 08/26/2024 3:30 PM PROOFER APPRENTICE Rosa Maria Phillips MD LAB_1 [facility] [address] [place] [address] * TSH (08/26/2024 3:30 PM PROOFER APPRENTICE) TSH, Sensitive 1.10 0.30 - 4.50 uIU/mL 08/26/2024 9:42 PM PROOFER APPRENTICE [facility] Blood Venipuncture / Unknown 08/26/2024 3:30 PM PROOFER APPRENTICE 08/26/2024 3:30 PM PROOFER APPRENTICE Rosa Maria Phillips MD LAB_1 [facility] [address] [place], [place] [address] [place] [address] * (ABNORMAL) Basic Metabolic Panel (08/26/2024 3:30 PM PROOFER APPRENTICE) Sodium 140 136 - 145 mmol/L 08/27/2024 10:07 AM [facility] Potassium 3.6 3.5 - 5.1 mmol/L 08/27/2024 10:07 AM [facility] Chloride 110(H) 98 - 109 mmol/L 08/27/2024 10:07 AM [facility] CO2 21 20 - 29 mmol/L 08/27/2024 10:07 AM [facility] Anion Gap 9 6 - 16 mmol/L 08/27/2024 10:07 AM [facility] Calcium 9.6 8.4 - 10.4 mg/dL 08/27/2024 10:07 AM [facility] BUN 9 7 - 26 mg/dL 08/27/2024 10:07 AM [facility] Creatinine 0.72 0.55 - 1.02 mg/dL 08/27/2024 10:07 AM [facility] Glucose 102(H) 70 - 100 mg/dL 08/27/2024 10:07 AM [facility] Comment:The given reference range is for the fasting state. Non-fasting reference range for glucose is 70 - 180 mg/dL. GFR, Estimated >60 >60 mL/min/1.7 3m2 08/27/2024 10:07 AM [facility] Hours Fasting 0.0 8 - 12 Hours 08/27/2024 10:07 AM [facility] Blood Venipuncture / Unknown 08/26/2024 3:30 PM PROOFER APPRENTICE 08/26/2024 3:30 PM PROOFER APPRENTICE Rosa Maria Phillips MD LAB_1 [facility] [address] [place] [address] * US Venous Right Lower Extrem Doppler [...] excluded by this technique. Antonia Ya PA-C [facility] US * (ABNORMAL) Urine Culture - Collect in Lab (08/11/2024 10:18 AM CDT) Urine Culture Growth(A) 08/12/2024 10:20 PM CDT [facility] Urine Culture <10,000 CFU/mL Mixed Bacterial Growth 08/12/2024 10:20 PM CDT [facility] Comment: Mixed Bacterial Growth indicates the specimen is likely contaminated at collection with urogenital and/or fecal satinder. The presence of organisms at <10,000 cfu/ml in culture, UTI unlikely. Urine URINE SPECIMEN COLLECTION, CLEAN CATCH / Unknown Non-blood Collection / Unknown 08/11/2024 10:18 AM CDT 08/11/2024 10:35 AM CDT Antonia Ya PA-C LAB_[address] [address], [facility] * (ABNORMAL) Urinalysis Routine, Micro/Culture if Pos: Clean Catch (08/11/2024 10:18 AM CDT) Urine Culture Comment Urinalysis results do not meet criteria for urine culture reflex. 08/11/2024 10:54 AM [facility] Color Yellow 08/11/2024 10:54 AM [facility] Clarity Clear Clear 08/11/2024 10:54 AM [facility] Specific Hersey >=1.030(A) 1.005 - 1.030 08/11/2024 10:54 AM [facility] pH 5.5 5.0 - 8.0 08/11/2024 10:54 AM [facility] Protein Negative Neg/Trace 08/11/2024 10:54 AM [facility] Glucose Negative Negative 08/11/2024 10:54 AM [facility] Ketones 15(A) Negative 08/11/2024 10:54 AM [facility] Urobilinogen 0.2 <2.0 08/11/2024 10:54 AM [facility] Bilirubin Negative Negative 08/11/2024 10:54 AM [facility] Blood Negative Neg/Trace 08/11/2024 10:54 AM [facility] Nitrite Negative Negative 08/11/2024 10:54 AM [facility] Leukocyte Esterase Trace(A) Negative 08/11/2024 10:54 AM [facility] Source Clean Catch 08/11/2024 10:54 AM [facility] Urine URINE SPECIMEN COLLECTION, CLEAN CATCH / Unknown Non-blood Collection / Unknown 08/11/2024 10:18 AM CDT 08/11/2024 10:35 AM CDT Laurent CHIU LAB_1 [facility] [address] [place] [address], [facility] * (ABNORMAL) Urine Microscopic Evaluation: Clean Catch (08/11/2024 10:18 AM CDT) Red Blood Cells 0-3 0 - 3 /HPF 10:54 AM [facility] White Blood Cells 6-9(A) 0 - 5 /HPF 08/11/2024 10:54 AM [facility] Bacteria Moderate(A ) None Seen /HPF 08/11/2024 10:54 AM CDT [facility] Squamous Epithelial Cells Moderate(A ) None Seen, Occasional , Few /HPF 08/11/2024 10:54 AM CDT [facility] Mucus Present(A) None Seen /HPF 08/11/2024 10:54 AM CDT [facility] Urine URINE SPECIMEN COLLECTION, CLEAN CATCH / Unknown Non-blood Collection / Unknown 08/11/2024 10:18 AM CDT 08/11/2024 10:35 AM CDT Laurent CHIU LAB_1 [facility] [address] [place] [address], [facility] * XR Foot Rt 3+ Views (07/23/2024 [...] 1/2 Ag/Ab 4th Generation (10/02/2017 1:40 PM PROOFER APPRENTICE) HIV 1/2 AG/AB 4thGEN Negative (Non Reactive) NEGNR [facility] Comment:HIV-1 p24 Ag and HIV -1/HIV-2 Ab not detected. 10/02/2017 1:40 PM PROOFER APPRENTICE 10/02/2017 1:47 PM PROOFER APPRENTICE Narrative [facility] - 10/02/2017 7:15 PM PROOFER APPRENTICE Performed at [facility], [address] [place] [address] ??[id number] Meg Gracia APRN, CNM LAB_1 Performing Organization Address [facility] de Phone Number [facility] [phone] * Pap Test, Routine (08/21/2017 11:14 AM CDT) Cytology, Pap (NOTE) Technical Maintenance Specialist Cytology Report Patient Name: TURNER TIDWELL Taken: [...] ?? Microscopic Description Microscopic examination is performed. [facility] Department of Pathology [address] [place] [phone] [facility] 08/21/2017 11:1 4 AM CDT 08/21/2017 6:30 PM CDT Genaro Jamil MD LAB_1 Performing Organization Address City/[facility] Co de Phone Number [facility] [phone] from Last 3 Months or Most Recently Relevant to Health Maintenance Advance Directives * Full Code (Latest Code Status on File) Date Activated Date Inactivated Comments 11/27/2017 8:06 AM 11/27/2017 2:06 PM Care Teams Lance Crewmember/Mlrs Sergeant Relationship Specialty Start Date End Date Margot Huang PA-C [address] [place] [address] PCP - General Physician Rug Inspector Helper 11/13/16
--- OUTSIDE RECORDS SUMMARY | 2024-08-31 19:40 | XMS_ITS | Encounter Summary ---
Author Organization [employer] Address [address], [place] [address] Care Team Providers Care Physician Practice Coordinator Name Role Phone Margot Huang PA-C Primary Care Provider [phone] Reason for Visit * Reason Comments QUESTIONS, GENERAL Entered automaticall y based on patient selection in [facility] Encounter Details Date Type Department Care Team ([facility] Contact Info) Description 08/17/2024 3:30 PM CDT E-Visit [place] [address] [facility] Medicine [address] [place] [address] Jim Esparza PA-C [address] [place] [address] Chief Comp: QUESTIONS, GENERAL Social History Tobacco [...] Upcoming Encounters Date Type Department Care Team ([facility] Contact Info) Description 09/08/2024 4:30 PM NARROW GAUGE OPERATOR Telemedicine [facility] [address] [place] [address] Rosa Maria Phillips MD [address] [place] [place], [place] [address] documented as of this encounter Visit Diagnoses Not on filedocumented in this encounter Care Teams Physician Practice Coordinator Relationship Specialty Start Date End Date Margot Huang PA-C [address] [place] [address] PCP - General Physician Sign Writer Hand 11/13/16 documented as of this encounter
--- OUTSIDE RECORDS SUMMARY | 2024-08-31 19:40 | XMS_ITS | Encounter Summary ---
Author Organization [employer] Address [address], [place] [address] Care Team Providers Care Hemodialysis Technician Name Role Phone Margot Huang PA-C Primary Care Provider [phone] Reason for Visit * Reason Comments ANXIETY * Consult/Transfer Care (Routine) - New Request Specialty Diagnoses / Procedures Referred By Sukhi t Referred To Contact Diagnoses Low back pain, unspecified back pain laterality, unspecified chronicity, unspecified whether sciatica present Right calf pain Antonia Ya PA-C [address] [place] [address] Referral ID Status Reason Start Date Expiration Date V isits Requested Visits Authorized [id number] New Request 08/11/2024 11/09/2024 1 1 Encounter Details Date Type Department Care Team (Late st Contact Info) Description 08/13/2024 9:00 AM CDT Office Visit [place] [address] Family Medicine [address] [place] [address] Jim Esparza PA-C [address] [place], [place] [phone] Anxiety (HRC) (Primary Dx); Radiculopathy of lumbar [...] 2). Right leg pain/numbness, low back pain: [place] related to lumbar radiculopathy. She was seen [...] with sacroiliitis. She has been doing some career services representative and Naproxen prescribed in . Review of [...] st Contact Info) Description 09/08/2024 4:30 PM RING ATTACHER Telemedicine [facility] [address] [place], [place] [phone] Rosa Maria Phillips MD [address] [place] [address] documented as of this encounter Visit Diagnoses Diagnosis Anxiety (HRC)- Primary Anxiety state, unspecified Radiculopathy of lumbar region Thoracic or lumbosacral neuritis or radiculitis, unspecified Sacroiliitis (HRC) Sacroiliitis, not elsewhere classified documented in this encounter Care Teams Hemodialysis Technician Relationship Specialty Start Date End Date Margot Huang PA-C [address] [place] [address] PCP - General Physician Student 11/13/16 documented as of this encounter
--- OUTSIDE RECORDS SUMMARY | 2024-08-31 19:40 | XMS_ITS | Encounter Summary ---
Author Organization [facility] Address [address] [place] [address] Care Team Providers Care Care Information Associate Name Role Phone Margot Huang PA-C Primary Care Provider [phone] Reason for Visit * Reason Comments CELLULITIS Encounter Details Date Type Department Care Team (Late st Contact Info) Description 07/23/2024 7:30 AM CDT Telemedicine [facility] [address] [place] [address] Steve Stoll PA-C [address] [place] [address] Right foot pain (Primary Dx); Cellulitis of [...] Additionally, you may receive a survey from [facility] through [employer], phone or mail about your visit with [...] out to me via clinic line or [employer] if there is ever anything you need. Nehemiah Stoll PA-C [facility] documented in this encounter Progress Notes * Steve Stoll PA-C - 07/23/2024 7:30 AM CDT Images from the original note were not included. [facility] Nehemiah Stoll PA-C Kacey Hines 33 y.o. [...] She states she was recently treated at [facility] for cellulitis of her right [...] of visit. Nehemiah Stoll PA-C Family Medicine [facility] documented in this encounter Plan of Treatment Upcoming Encounters Date Type Department Care Team (Late st Contact Info) Description 09/08/2024 4:30 PM CASH MANAGEMENT ASSOCIATE [facility] [address] [place], [place] [address] Rosa Maria Phillips MD [address] [place] [address] documented as of this encounter Visit Diagnoses Diagnosis Right foot pain- Primary Pain in limb Cellulitis of right lower extremity Cellulitis and abscess of leg, except foot documented in this encounter Care Teams Care Information Associate Relationship Specialty Start Date End Date Margot Huang PA-C [address] [place] [address] PCP - General Physician Cia Agent 11/13/16 documented as of this encounter
--- OUTSIDE RECORDS SUMMARY | 2024-08-31 19:40 | XMS_ITS | Encounter Summary ---
Author Organization [employer] Address [address] [place] [address] Care Team Providers Care Agricultural Consultant Name Role Phone Margot Huang PA-C Primary Care Provider [phone] Reason for Visit * Reason Comments Follow-up, NOS Entered automaticall y based on patient selection in [employer]. Encounter Details Date Type Department Care Team (Late st Contact Info) Description 08/26/2024 1:00 PM HEAVY DUTY TRUCK MECHANIC [facility] [address] [place], [place] [phone] Rosa Maria Phillips MD [address] [place], [place] [phone] Chief Comp: Follow-up, NOS Social History Tobacco [...] as of this encounter Nursing Notes * Shyann East, RN - 08/26/2024 1:35 PM CST Called patient due to nature of sx. Ok to close. Y DUTY TRUCK MECHANIC documented in this encounter Plan of Treatment Upcoming Encounters Date Type Department Care Team (Late st Contact Info) Description 09/08/2024 4:30 PM HEAVY DUTY TRUCK MECHANIC [facility] [address] [place], [place] [phone] Rosa Maria Phillips MD [address] [place], [place] [phone] documented as of this encounter Visit Diagnoses Not on filedocumented in this encounter Care Teams Agricultural Consultant Relationship Specialty Start Date End Date Margot Huang, PAKeenanC [address] [place] [address] PCP - General Physician Documentation Nurse 11/13/16 documented as of this encounter
--- OUTSIDE RECORDS SUMMARY | 2024-08-31 19:40 | XMS_ITS | Encounter Summary ---
Author Organization [employer] Address [address] [place] [address] Care Team Providers Care Ruby On Rails Software Developer Name Role Phone Margot Huang PA-C Primary Care Provider [phone] Reason for Visit * Reason Comments ANXIETY Encounter Details Date Type Department Care Team (Late st Contact Info) Description 08/26/2024 Nurse Triage [facility] Medicine [address] [facility] [address] Margot Huang PA-C [address] [place], [place] [id number] ANXIETY Social History Tobacco Use Types Packs/Day Years [...] Notes * Shyann East, RN - 08/26/2024 1:18 PM CST Spoke to patient. States anxiety has gotten worse since starting escitalopram on 08/13/24. Dizzy, chest can't catch breath, feels like in a constant panic attack. Having a hard time getting out of bed. Has done yoga and gone outside to get fresh air and using happy light. OCD is present as well. Can't get out of bed and hard time showering so affecting her daily activities.ON 08/25/24 had a hard time catching her breath and felt like she couldn't swallow. Mild-moderate dizziness when getting up from sitting position. Has been to ER due to heart rate increase associated with anxiety. Denies depression, self harm nor chest pain. Advised evaluation and reasons to call back. Verbalized agreement. Problem list reviewed as related to this call. Future Appointments Date Time Provider Department Center 08/26/2024 3:00 PM Rosa Maria Phillips MD PR[facility] PN PRLK 09/08/2024 4:30 PM Rosa Maria Phillips MD PRLK PN PRLK Reason for Disposition Started on anti-anxiety medication and no relief Protocols used: Anxiety and Panic [id number] ECTOR PRECISION ASSEMBLY documented in this encounter Plan of Treatment Upcoming Encounters Date Type Department Care Team (Late st Contact Info) Description 09/08/2024 4:30 PM INSPECTOR PRECISION ASSEMBLY [facility] [address] [place] [address] Rosa Maria Phillips MD [address] [address] documented as of this encounter Visit Diagnoses Not on filedocumented in this encounter Care Teams Ruby On Rails Software Developer Relationship Specialty Start Date End Date Margot Huang PA-C [address] [place] [address] PCP - General Physician Implementation Lead 11/13/16 documented as of this encounter
--- OUTSIDE RECORDS SUMMARY | 2024-08-31 19:40 | XMS_ITS | Encounter Summary ---
Author Organization [employer] Address [address] [place] [address] Care Team Providers Care Design Analyst Name Role Phone Margot Huang PA-C Primary Care Provider [phone] Encounter Details Date Type Department Care Team (Late Contact Info) Description 10/15/2017 Correspondence External to External, [place] [address] NOTICE OF NON COVERED SERVICE Social History [...] (Late Contact Info) Description 09/08/2024 4:30 PM BINDER LAYER [facility] [address] [place] [address] Rosa Maria Phillips MD [address] [place], [place] [phone] documented as of this encounter Visit Diagnoses Not on filedocumented in this encounter Additional Health Concerns Infection Onset Date Last Indicated Resolved Time R/O COVID19 05/20/2020 05/20/2020 05/27/2020 3:18 AM CDT documented as of this encounter Care Teams Design Analyst Relationship Specialty Start Date End Date Margot Huang PA-C [address] [place] [address] PCP - General Physician Board Writer 11/13/16 documented as of this encounter
--- OUTSIDE RECORDS SUMMARY | 2024-08-31 19:40 | XMS_ITS | Encounter Summary ---
Author Organization [employer] Address [address] [place] [address] Care Team Providers Care Project Administrator Name Role Phone Margot Huang PA-C Primary Care Provider [phone] Reason for Visit * Reason Comments CELLULITIS Encounter Details Date Type Department Care Team (Late st Contact Info) Description 07/15/2024 Nurse Triage [facility] [address] [place], [place] [address] Leobardo Lloyd X CELLULITIS Social History Tobacco [...] cellulitis Protocols used: Cellulitis on Antibiotic Follow-up [id number] * Leobardo Lloyd - 07/15/2024 6:06 PM CDT Verified patient identity using three identifiers: Yes Caller's relationship to patient: Self, Do you have a provider/clinic where you are seen for this? STACEY/Dejon/Kari/Colton Are you calling about a /BRANCH LENDING OFFICER related concern? No Symptoms Describe the reason [...] st Contact Info) Description 09/08/2024 4:30 PM ORGANIZATIONAL EFFECTIVENESS CONSULTANT Telemedicine [facility] Medicine [address] [place] [address] Rosa Maria Phillips MD [address] [place] [address] documented as of this encounter Visit Diagnoses Not on filedocumented in this encounter Care Teams Project Administrator Relationship Specialty Start Date End Date Margot Huang, PAKeenanC [address] [place] [address] PCP - General Physician Assembler Show Motor 11/13/16 documented as of this encounter
--- OUTSIDE RECORDS SUMMARY | 2024-08-31 19:40 | XMS_ITS | Encounter Summary ---
Author Organization [employer] Address [address] [address] Care Team Providers Care Gis Physical Scientist Name Role Phone Margot Huang PA-C Primary Care Provider [phone] Reason for Referral * Therapies (Routine) - New Request Specialty Diagnoses / Procedures Referred By Sukih hassan Referred To Contact Diagnoses Low back pain, unspecified back pain laterality, unspecified chronicity, unspecified whether sciatica present Right calf pain Antonia Ya PA-C [address] [place] [address] Referral ID Status Reason Start Date Expiration Date V isits Requested Visits Authorized [id number] New Request 08/11/2024 08/11/2025 1 1 Scheduling Instructions Your clinician has recommended an appointment with [facility]. You can quickly schedule your appointment by signing in to your online account at [email or web address] or through the text message you may have received. You can also make an appointment by calling [phone]. We suggest you call your health insurance [...] present Right calf pain Antonia Ya PA-C [address] [place] [address] Referral ID Status Reason Start Date Expiration Date V isits Requested Visits Authorized [id number] New Request 08/11/2024 11/09/2024 1 1 Scheduling Instructions Your provider has recommended an appointment with [facility]. You can quickly make your appointment online at [email or web address]. You can also call [phone] for help scheduling your appointment. We suggest [...] Right Lower Extrem Doppler Antonia Ya PA-C [address] [place] [address] Referral ID Status Reason Start Date Expiration Date V isits Requested Visits Authorized [id number] Incomplete 08/11/2024 11/10/2025 1 1 Reason for Visit * Reason Comments Back Pain LEG PAIN Encounter Details Date Type Department Care Team (Late st Contact Info) Description 08/11/2024 12:40 PM CDT Office Visit [facility] [address] [place] [phone] Antonia Ya PA-C [address] [place] [address] Low back pain, unspecified back pain laterality, [...] be sent through Care Everywhere. * Sciatica (Zimbabwean) documented in this encounter Progress Notes * Antonia Ya PA-C - 08/11/2024 12:40 PM CDT Patient ID Kacey Hines 1990 Chief Complaint Patient presents with [...] Color Yellow Urine Clarity Clear Clear Specific Brule, Urine >=1.030 (A) 1.005 - 1.030 PH [...] this encounter Nursing Notes * Jayant Zaragoza, SANCHO - 08/11/2024 12:40 PM CDT Pt c/o [...] st Contact Info) Description 09/08/2024 4:30 PM SUPERVISOR METAL CANS [facility]medicine [facility] [address] [place] [address] Rosa Maria Phillips MD [address] [place] [address] Scheduled Referrals Name Type Priority Associated Diagnoses [...] excluded by this technique. Antonia Ya PA-C [facility] US * (ABNORMAL) Urine Culture - Collect in Lab (08/11/2024 10:18 AM CDT) Pathologist [facility] Urine Culture Growth(A) 08/12/2024 10:20 PM CDT [facility] Urine Culture <10,000 CFU/mL Mixed Bacterial Growth 08/12/2024 10:20 PM [facility] Comment: Mixed Bacterial Growth indicates the specimen is likely contaminated at collection with urogenital and/or fecal satinder. The presence of organisms at <10,000 cfu/ml in culture, UTI unlikely. Urine URINE SPECIMEN COLLECTION, CLEAN CATCH / Unknown Non-blood Collection / Unknown 08/11/2024 10:18 AM CDT 08/11/2024 10:35 AM CDT Antonia Ya PA-C LAB_1 Performing Organization Address City/State/[facility] [place] [address], [facility] * (ABNORMAL) Urine Microscopic Evaluation: Clean Catch (08/11/2024 10:18 AM CDT) Red Blood Cells 0-3 0 - 3 /HPF 10:54 AM CDT [facility] White Blood Cells 6-9(A) 0 - 5 /HPF 08/11/2024 10:54 AM CDT [facility] Bacteria Moderate(A ) None Seen /HPF 08/11/2024 10:54 AM CDT [facility] Squamous Epithelial Cells Moderate(A ) None Seen, Occasional , Few /HPF 08/11/2024 10:54 AM [facility] Mucus Present(A) None Seen /HPF 08/11/2024 10:54 AM [facility] Urine URINE SPECIMEN COLLECTION, CLEAN CATCH / Unknown Non-blood Collection / Unknown 08/11/2024 10:18 AM CDT 08/11/2024 10:35 AM CDT Laurent Grossman [facility]_1 [facility] [address] [place] [address] * (ABNORMAL) Urinalysis Routine, Micro/Culture if Pos: Clean Catch (08/11/2024 10:18 AM CDT) Urine Culture Comment Urinalysis results do not meet criteria for urine culture reflex. 08/11/2024 10:54 AM [facility] Color Yellow 08/11/2024 10:54 AM [facility] Clarity Clear Clear 08/11/2024 10:54 AM [facility] Specific Brule >=1.030(A) 1.005 - 1.030 08/11/2024 10:54 AM [facility] pH 5.5 5.0 - 8.0 08/11/2024 10:54 AM [facility] Protein Negative Neg/Trace 08/11/2024 10:54 AM [facility] Glucose Negative Negative 08/11/2024 10:54 AM [facility] Ketones 15(A) Negative 08/11/2024 10:54 AM [facility] Urobilinogen 0.2 <2.0 08/11/2024 10:54 AM [facility] Bilirubin Negative Negative 08/11/2024 10:54 AM [facility] Blood Negative Neg/Trace 08/11/2024 10:54 AM [facility] Nitrite Negative Negative 08/11/2024 10:54 AM [facility] Leukocyte Esterase Trace(A) Negative 08/11/2024 10:54 AM [facility] Source Clean Catch 08/11/2024 10:54 AM [facility] Urine URINE SPECIMEN COLLECTION, CLEAN CATCH / Unknown Non-blood Collection / Unknown 08/11/2024 10:18 AM CDT 08/11/2024 10:35 AM CDT Laurent CHIU LAB_1 [facility] [address] [place] [address], [facility] documented in this encounter Visit Diagnoses Diagnosis Low back pain, unspecified back pain laterality, unspecified chronicity, unspecified whether sciatica present Right calf pain Right calf pain documented in this encounter Care Teams Gis Physical Scientist Relationship Specialty Start Date End Date Margot Huang PA-C [address] [place] [address] PCP - General Physician Manufacturing Plant Manager 11/13/16 documented as of this encounter
--- OUTSIDE RECORDS SUMMARY | 2024-08-31 19:40 | XMS_ITS | Encounter Summary ---
Author Organization [employer] Address [address] [place] [address] Care Team Providers Care Hat And Cap Opener Name Role Phone Margot Huang PA-C Primary Care Provider [phone] Reason for Visit * Reason Comments CONSULT Encounter Details Date Type Department Care Team (Late st Contact Info) Description 08/24/2024 4:00 PM MINE SURVEYOR Telemedicine [facility] [address] [place] [id number] Swati Murray MSW, SHELL REPRINT OPERATOR [address] [place] [address] ROSE MARY (generalized anxiety disorder) ([facility]) (Primary Dx) Social History Tobacco Use Types [...] as of this encounter Progress Notes * Swati Murray MSW, SHELL REPRINT OPERATOR - 08/24/2024 4:00 PM CST BEHAVIORAL HEALTH CONSULTATION - PROGRESS NOTE DATE: 08/24/2024 PATIENT: Kacey Flora PROVIDER: PRATIBHA Vargas, [facility] REFERRING PROVIDER: Rosa Maria Phillips MD VISITS THIS EPISODE OF CARE: 1 START TIME: 4:03 pm STOP TIME: 4:37 pm DURATION: 35 minutes Subjective REASON FOR VISIT VISIT TYPE: Video Visit --This appointment was conducted via telehealth (video) as it is the patient's preference and it is appropriate for the treatment being provided. Patient location: home, Clinician location: home. REFERRAL CONCERN: patient presents today for an individual consultation, to address concerns with anxiety, mood-related concerns, and psychosocial issues/stressors. CONFIDENTIALITY AND BHC ROLE: reviewed with patient the role of a Behavioral Health Wood Drilling Machine Operator (BHC) including collaboration with the Primary Care team and the limits of confidentiality. Described the short-term nature of interventions. Discussed BHC's work with patients to address stressors, psychosocial challenges, and mental health concerns through solution-focused interventions and teaching skills and strategies. Reviewed patients typically attend 1-3 sessions and referrals will be offered as needed for continuing care. Patient verbalized agreement to proceed within this brief model of intervention; they are aware of billing practices. Based on today's clinical assessment of the patient, patient appears to be competent to participateand benefit from psychotherapeutic intervention. PRESENTING SYMPTOMS AND CONCERNS: Pt states she has a history of anxiety, most recently has been focused on her health. Currently taking Lexapro, recently increased dose to 20 mg 1 week ago. Yesterday went to ER due to racing heartbeat. No cardiac issues found, patient has been wearing pulse oximeter on her finger to monitor heart rate which is adding to her anxiety, also states she has done Internet searches on her symptoms which also is not helping. Uses hydroxyzine if necessary. Usually reads or takes a bath to relax but those strategies have notbeen working. Has good support from her mom and aunt. 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 Coworkers were hervery good friends, is missing that support. Was evaluated by mental health provider in the ER yesterday, was discharged, they encouraged her touse county resources as much as possible since patient is now uninsured. INTERVENTIONS PROVIDED: Evaluation of presenting concerns and symptoms, functional impairment and needs assessment, self-management of health concerns, and risk assessment. Relevant handouts provided to patient in-person, After Visit Summary, or via patient portal. Supportive consultation and processing of stressors/concerns. Provided psychoeducation and discussed implementation strategies for the following: stress and panic response. Development and practice of emotional regulation/anxiety management skills, relaxation/mindfulness/stress reduction techniques, and cognitive reframing techniques. Navigation of community resources and referrals to support mental health. Objective OBJECTIVE MEASURES: Most Recent PHQ-9: Given the nature of this integrated behavioral health appointment, the PHQ9 was not administered for this appointment. Most recent PHQ-9 on file in table below. 08/21/2017 PHQ-9 PHQ9 Score - Smartform (Adult) 8 Most Recent ROSE MARY-7: Given the nature of this integrated behavioral health appointment, the ROSE MARY-7 was not administered for this appointment. Most recent ROSE MARY-7 on file in table below. 05/22/2024 ROSE MARY-7 Total Score Total Score 5 RISK ASSESSMENT: Risk of harm to self: Denies; denied active thoughts of self-harm or active suicidal ideation. Risk of harm to others: Denies MENTAL STATUS EXAM: The patient was alert, neatly dressed, and neatly groomed. She behaved in a cooperative, engaged, and friendly manner during session. Her mood/affect was appropriate to content, full-ranged, anxious,briefly tearful when talking about job loss, but is still pleasant and polite. Significant psychomotor agitation not observed. Insight was good; judgment was good. Her orientation, fund of knowledge,and memory were grossly intact. Patient thought process was logical and goal-directed. Assessment/Plan DIAGNOSIS 1. ROSE MARY (generalized anxiety disorder) ([facility]) Rule out Health Anxiety Disorder CONSULTATION SUMMARY: Kacey Flora presented today for Behavioral Health Consultation related to concerns with anxiety, mood-related concerns, and psychosocial issues/stressors. Patient's reported symptoms are causing functional impairment in the following domains: psychological well-being/emotional-behavioral disturbance, physical health, home life, and instrumental activities of daily living/independent living. They would benefit from brief intervention to increase functioning in impaired domains and to bridge care while patient establishes with long-term care options. Patient collaborated in the development of a care plan and treatment goals. Kacey participated inskill development and practice and was given resources/handouts as appropriate. CARE PLAN/FOLLOW-UP: Given the patient's symptoms and level of functioning, it is [facility]. Review provided handouts/resources and practice skills discussed in session. Utilize consultation services for psychoeducation, support, brief assessment, and skill developmentto support active therapeutic needs. Patient is going to try to reestablish care with previous mental health provider, is also willing to use [facility] if needed. Follow up with PCP for scheduled visit. Electronically signed by: PRATIBHA Vargas LICSW Behavioral Health Wood Drilling Machine Operator 08/24/2024, 6:19 PM SURVEYOR documented in this encounter Plan of Treatment Upcoming Encounters Date Type Department Care Team (Late st Contact Info) Description 09/08/2024 4:30 PM MINE SURVEYOR Telemedicine [facility] [address] [place] [address] Rosa Maria Phillips MD [address] [place] [address] documented as of this encounter Visit Diagnoses Diagnosis ROSE MARY (generalized anxiety disorder) ([facility])- Primary Generalized anxiety disorder documented in this encounter Care Teams Hat And Cap Opener Relationship Specialty Start Date End Date Margot Huang PA-C [address] [place] [address] PCP - General Physician Hospital Administrative Assistant 11/13/16 documented as of this encounter
--- OUTSIDE RECORDS SUMMARY | 2024-08-31 19:41 | XMS_ITS | Encounter Summary ---
Author Organization [employer] Address [address] [place] [address] Care Team Providers Care Principal Architect Name Role Phone Eileen Vaughn PA-C Primary Care Provid er [facility], [facility] Primary Care Pro vider [facility], [facility] Primary Care Pr ovider Encounter Details Date Type Department Care Team (Late st Contact Info) Description 07/31/2013 [facility] [address] [address] [place] Social History Tobacco Use Types Packs/Day Years Used Date Smoking Tobacco: Every Day Cigarettes 0.5 1 Smokeless Tobacco: Never Alcohol Use Standard Drinks/Week Comments No 0 (1 standard drink = 0.6 oz pur e alcohol) Comments No Sex and Gender Information Value Date Recorded Sex Assigned at Not on file Legal Sex Female 4:[address] Gender Identity Not on file Sexual Orientation Not on file documented as of this encounter Plan of Treatment Not on file documented as of this encounter Visit Diagnoses Not on filedocumented in this encounter Care Teams Principal Architect Relationship Specialty Start Date End Date Eileen Vaughn PA-C [address] [place] [address] [place] [address] PCP - General Family Practice 12/07/10 08/08/23 [facility], [facility] [address] [place] [address] PCP - General 08/09/23 08/22/24 Clinic, [facility] [address] [place] [address] PCP - General 08/23/24 documented as of this encounter
--- OUTSIDE RECORDS SUMMARY | 2024-08-31 19:41 | XMS_ITS | Encounter Summary ---
Author Organization [employer] Address [address] [place] [address] Care Team Providers Care Application Administrator Name Role Phone Gladys Sum[place] Primary Care Pr ovider Reason for Visit * Reason Comments Advance Care Planning Encounter Details Date Type Department Care Team (Latest Contact Info) Description 08/24/2024 Documentation Only [facility] [address] [facility] [address] [place] [address] Tracey Whitley [facility] [address] [place] [address] Advance Care Planning Social History Tobacco Use Types Packs/Day Years [...] on file Legal Sex Female 4:22 AM HIGH PRESSURE KETTLE OPERATOR Gender Identity Not on file Sexual Orientation Not on file documented as of this encounter Plan of Treatment Not on file documented as of this encounter Visit Diagnoses Not on filedocumented in this encounter Care Teams Application Administrator Relationship Specialty Start Date End Date Gladys Summers [address] [place] [address] PCP - General 08/23/24 documented as of this encounter
--- OUTSIDE RECORDS SUMMARY | 2024-08-31 19:41 | XMS_ITS | Clinical Summary ---
Author Organization [facility] Address [place], [place] [address] Care Team Providers Care Risk Control Product Liability Director Name Role Phone Gladys Abebe Primary Care [...] mouth 3 times daily if needed. Active Lusyb-2-IHD-EPA-Fis h Oil (Fish OiL) 1,000 mg (120 [...] Description 07/26/2024 2:50 PM CDT Office Visit [facility] [address] [facility] [address] [place] [address] Shyann Umana, DIOGENES Derm Problem 07/26/2024 Travel [...] st Contact Info) Description 10/22/2024 10:00 AM ABORIGINAL EDUCATION WORKER COORDINATOR Office Visit [facility] [address] [id number] [place] [address] [place] [address] Health Maintenance Due Date Last Done Comments [...] Comments Code Status Discussion: Discussed Care Teams Risk Control Product Liability Director Relationship Specialty Start Date End Date [facility] [address] [place] [address] PCP - General 01/14/24
--- OUTSIDE RECORDS SUMMARY | 2024-08-31 19:41 | XMS_ITS | Encounter Summary ---
Author Organization [employer] Address [address] [place] [address] Care Team Providers Care Performing Arts Road Manager Name Role Phone Gladys Summers Primary Care Pr ovider Encounter Details Date Type Department Care Team (Latest Contact Info) Description 08/26/2024 Travel Social History Tobacco Use Types Packs/Day Years [...] on file Legal Sex Female 4:22 AM BAKER PASTRY Gender Identity Not on file Sexual Orientation Not on file documented as of this encounter Plan of Treatment Not on file documented as of this encounter Visit Diagnoses Not on filedocumented in this encounter Care Teams Performing Arts Road Manager Relationship Specialty Start Date End Date Gladys Summers [address] [address] PCP - General 08/23/24 documented as of this encounter
--- OUTSIDE RECORDS SUMMARY | 2024-08-31 19:41 | XMS_ITS | Encounter Summary ---
Author Organization [facility] Address [address] [place] [id number] Care Team Providers Care Energy Efficiency Engineer Name Role Phone Glad[facility] Primary Care Pr ovider Encounter Details Date Type Department Care Team (Latest Contact Info) Description 08/28/2024 Travel Social History Tobacco Use Types Packs/Day [...] on file Legal Sex Female 4:22 AM PROCESS IMPROVEMENT MANAGER Gender Identity Not on file Sexual Orientation Not on file documented as of this encounter Plan of Treatment Not on file documented as of this encounter Visit Diagnoses Not on filedocumented in this encounter Care Teams Energy Efficiency Engineer Relationship Specialty Start Date End Date Gladys Summers [address] [place] [address] PCP - General 08/23/24 documented as of this encounter
--- OUTSIDE RECORDS SUMMARY | 2024-08-31 19:41 | XMS_ITS | Encounter Summary ---
Author Organization [facility] Address [address] [place] [address] Care Team Providers Care Clerical Proofreader Name Role Phone Clinic, [facility] Primary [facility] Pr ovider Reason for Visit * Reason Comments Anxiety Encounter Details Date Type Department Care Team ([facility] st Contact Info) Description 08/26/2024 7:06 PM ASSOCIATE SALES - 08/26/2024 11:00 PM ASSOCIATE SALES Emergency [facility] Emergency Dept [address] [place] [address] Juarez Gonzalez MD [facility] [address] [facility] [address] [place], [place] [address] ROSE MARY (generalized anxiety disorder); Generalized anxiety disorder with panic attacks Discharge Disposition: Home or Self Care Social History Tobacco Use Types Packs/Day Years [...] on file Legal Sex Female 4:22 AM ASSOCIATE SALES Gender Identity Not on file Sexual Orientation Not on file documented as of this encounter Last Filed Vital Signs Vital Sign Reading Time Taken Comments Blood Pressure 130/87 08/26/2024 7:04 PM ASSOCIATE SALES Pulse 94 08/26/2024 7:04 PM ASSOCIATE SALES Temperature 37 ??C (98.6 ??F) 08/26/2024 7:04 PM ASSOCIATE SALES Respiratory Rate 18 08/26/2024 7:04 PM ASSOCIATE SALES Oxygen Saturation 100% 08/26/2024 7:04 PM ASSOCIATE SALES Inhaled Oxygen Concentration - - Weight 77.4 kg (170 lb 10.2 oz) 08/26/2024 7:04 PM ASSOCIATE SALES Height - - Body Mass Index 27.54 08/23/2024 11:30 AM ASSOCIATE SALES documented in this encounter Discharge Instructions * Discharge Instructions* Steve Tang P - 08/26/2024 10:19 PM ASSOCIATE SALES Scheduled Appointment: Date: , 08/27/2024 Time: 12:00 pm - 1:00 pm Provider: Nikia CARRION PA-C Location: [facility], [address] [place] [address], [address], [place] [address] Type: Telepsychiatry Patient Instructions: Please fill New Patient Form by using following link. All forms need to be completed 24 hours priorto the appointment date/time by going to [email or web address] Please call us on [phone] 24 hours prior to your scheduled appointment to confirm that you are able to attend. We will provi de you information about how to log into video call software when you call. It is your responsibility to contact your insurance company directly to verify coverage, eligibility, payment, and benefit information for any appointments or referrals listed above. [facility] maintains an extensive network of licensed behavioral health providers to connect patients withthe services they need. We do not charge providers a fee to participate in our referral network. [facility] patients with providers based on a patient's specific treatment needs, insurance coverage, and location. Our first effort will be to refer you to a provider within your care system and will util ize providers outside your care system as needed. Below is a list of FREE Mental Health Options in the [facility]: [facility] ([facility]) Serves those in emotional crisis with 24-hour, shybv-fhm-o-week crisis counseling, assessment, referral, and medication management. Suicidal: [phone] Consultation: [phone] [place] [address] 13/05 [facility] [phone] Serves those in need of free outpatient mental health care Hours: Sat, Sat, Sat 1-3pm; Sat- 6:30-8:30pm [facility] [address] [place], [place] [id number] CIATE SALES CIATE SALES documented in this encounter Medications at Time of Discharge ferrous sulfate (FEROSUL) 325 (65 Fe) MG tablet Take 325 mg by mouth daily (with breakfast) LORazepam (ATIVAN) 1 MG tablet Take 1 tablet (1 mg) by mouth 3 times daily as needed for anxiety. 12 tablet 08/26/2024 omeprazole (PRILOSEC) [address] capsule Take 20 mg by mouth daily oxyCODONE (ROXICODONE) 5 MG tabletIndications :S/P primary low transverse Take 1-2 tablets (5-10 mg) by mouth every 4 hours as needed for pain 20 tablet 11/08/2018 Vit-Fe Fumarate-FA (PNV PLUS MULTIVITAMIN) 27-1 MG TABS per tablet Take 1 tablet by mouth daily documented as of this encounter Consult Notes * Devante Pearl Betty, COREMAKING MACHINE OPERATOR - 08/26/2024 10:24 PM CSTAssociated Order(s): DIAGNOSTIC EVALUATION [facility]ENTER (DEC) ASSESSMENT ORDER Diagnostic Evaluation Consultation Crisis Assessment Patient Name: Kacey Hines Age: [age] year old Legal Sex: female Gender Identity: female Pronouns: Race: White Ethnicity: Not or Language: Maori Patient was assessed: Virtual: OnlineSheetMusic Crisis Assessment Start Date: 08/26/24 Crisis Assessment Start Time: 2137 Crisis Assessment Stop Time: 2157 Patient location: [facility] EMERGENCY DEPT ED05 Referral Data and Chief Complaint Kacey Hines presents to the ED with family/friends. Patient is presenting to the ED for the following concerns: Significant behavioral change, Anxiety, Worsening psychosocial stress, Health stressors. Factors that make the mental health crisis life threatening or complex are: Patient arrives in the emergency department with uncontrolled anxiety specifically health related anxiety. She reports that her anxiety became unmanageable roughly 6 weeks ago she went to her primary care and startedLexapro. Her anxiety did not improve she has come to the emergency room and has met with her primary care provider within the last 6 weeks to increase her Lexapro dose. Patient states that she is in a constant state of anxiety she is not sleeping she wakes up anxious covered in sweat and nauseous with anxiety and vomits in the morning. she has been unable to cope anxiety. She can not think of anytriggers. She does have a trauma Hx with a PTSD and OCD diagnosis.. Informed Consent and Assessment Methods Explained the crisis assessment process, including applicable information disclosures and limits toconfidentiality, assessed understanding of the process, and obtained consent to proceed with the assessment. Assessment methods included conducting a formal interview with patient, review of medical records, collaboration with medical staff, and obtaining relevant collateral information from familyand community providers when available. : done Patient response to interventions: verbalizes understanding, acceptance expressed Coping skills were attempted to reduce the crisis: PCP visit, psych meds, social supports, reading,relaxing music, sour candy History of the Crisis Pt reported that she just lost her job. Pt's boyfriend reported that pt had worked there for 15 years and had never been written up or had issues with performance or anything else. Pt reported thatangeliquee has been struggling with her mental health over the last month, and that she was abruptly fired for performance issues. Pt reported that she had been seeing a therapist a few years ago, and that she had just contacted that provider again recently and plans to return to seeing that provider regularly when able. Pt reproted that she trusts her PCP, and that she is also open to seeing a psychiatric medicaiton provider. Brief Psychosocial History Family: Domestic Partnership, Children yes (6, 8, 10) Support System: Significant Other, Parent(s), Children Employment Status: employment seeking Source of Income: none Financial Environmental Concerns: insurance, none, unemployed Current Hobbies: interaction with pets, music, puzzles, reading, family functions Barriers in Personal Life: mental health concerns Significant Clinical History Current Anxiety Symptoms: obsessions/compulsions, excessive worry, anxious Current Depression/Trauma: sense of doom, difficulty concentrating Current Somatic Symptoms: somatic symptoms (abdominal pain, headache, tension), anxious, excessive worry Current Psychosis/Thought Disturbance: distractability Current Eating Symptoms: loss of appetite, recent weight loss Chemical Use History: Alcohol: None Benzodiazepines: None Opiates: None Cocaine: None Marijuana: None Other Use: None Past diagnosis: Anxiety Disorder, PTSD Family history: No known history of mental health or chemical health concerns Past treatment: Primary Care Details of most recent treatment: Other relevant history: Collateral Information Is there collateral information: Yes Collateral information name, relationship, phone number: Beth Gibson [phone] What happened today: Beth reported Pt came to her house today as she was crying and strugglingwith her panic attacks. Pt has worsening of panic attacks and anxiety for the past month. Stephaniereported Pt's current psychiatric medications seemed not helping her. What is different about patient's functioning: Beth reported Pt has been crying and sobbing uncontrollably for the past 6 weeks and she was not getting any help. Pt has been difficulty functioning as she was very exhausted and has shortness of breathing due to severe anxiety and panic attacks.Beth reported Pt recently started to seeing a new therapist. Beth noted Pt has cellulitisissues. Risk Assessment [place] Suicide Severity Rating Scale Full Clinical Version: Suicidal Ideation Q1 Wish to be (Lifetime): No Q2 Non-Specific Active Suicidal Thoughts (Lifetime): No Q6 Suicide Behavior (Lifetime): no Suicidal Behavior (Lifetime) Actual Attempt (Lifetime): No Interrupted Attempts (Lifetime): No Aborted or Self-Interrupted Attempt (Lifetime): No Preparatory Acts or Behavior (Lifetime): No [place] Suicide Severity Rating Scale Recent: Suicidal Ideation (Recent) Q1 Wished to be (Past Month): no Q2 Suicidal Thoughts (Past Month): no Level of Risk per Screen: no risks indicated Suicidal Behavior (Recent) Actual Attempt (Past 3 Months): No Has subject engaged in non-suicidal self-injurious behavior? (Past 3 Months): No Interrupted Attempts (Past 3 Months): No Aborted or Self-Interrupted Attempt (Past 3 Months): No Preparatory Acts or Behavior (Past 3 Months): No Environmental or Psychosocial Events: work or task failure, unemployment/underemployment, recent life events (see comment) Protective Factors: Protective Factors: intact marriage or domestic partnership, strong fairchild to family unit, community support, or employment, lives in a responsibly safe and stable environment, goodtreatment engagement, sense of importance of health and wellness, supportive ongoing medical and mental health care relationships, help seeking, sense of belonging, sense of self-efficacy and/or positive self-esteem, good problem-solving, coping, and conflict resolution skills, constructive use of leisure time, enjoyable activities, resilience, reality testing ability, optimistic outlook - identification of future goals Does the patient have thoughts of harming others? Feels Like Hurting Others: no Previous Attempt to Hurt Others: no Is the patient engaging in sexually inappropriate behavior?: no Is the patient engaging in sexually inappropriate behavior? no Mental Status Exam Affect: Appropriate Appearance: Appropriate Attention Span/Concentration: Attentive Eye Contact: Engaged Fund of Knowledge: Appropriate Language /Speech Content: Fluent Language /Speech Volume: Normal Language /Speech Rate/Productions: Normal Recent Memory: Intact Remote Memory: Intact Mood: Normal Orientation to Person: Yes Orientation to Place: Yes Orientation to Time of Day: Yes Orientation to Date: Yes Situation (Do they understand why they are here?): Yes Psychomotor Behavior: Normal Thought Content: Clear Thought Form: Intact Mini-Cog Assessment Number of Words Recalled: Clock-Drawing Test: Three Item Recall: Mini-Cog Total Score: Medication Psychotropic medications: Medication Orders - Psychiatric (From admission, onward) None Current Care Team Patient Care Team: Clinic, [facility] as PCP - General Diagnosis Patient Active Problem List Diagnosis Code PTSD (post-traumatic stress disorder) F43.10 Bipolar affective disorder (H) F31.9 Social anxiety disorder F40.10 Moderate major depression (H) F32.9 CARDIOVASCULAR SCREENING; LDL GOAL LESS THAN 160 Z13.6 Encounter for triage in patient Z36.89 Gestational hypertension O13.9 S/P primary low transverse Z98.891 Anxiety F41.9 Primary Problem This Admission Active Hospital Problems *Anxiety Clinical Summary and Substantiation of Recommendations After therapeutic assessment, intervention and aftercare planning by ED care team and LMHP and in consultation with attending provider, the patient's circumstances and mental state were appropriate for outpatient management. It is the recommendation of this clinician that pt discharge with OP MH support. Farm Machinery Set Up Mechanic connected patient to a psychiatry appointment tomorrow. At this time the pt is not presenting as an acute risk to self or others due to the following factors: Pt denies SI/SIB/SA/HI and denies plans, means, or intent to harm herself or others. Patient actively participated in safety planning, Patient coping skills attempted to reduce the crisis: PCP visit, psych meds, social supports, reading, relaxing music, sour candy Disposition Recommended disposition: Individual Therapy Reviewed case and recommendations with attending provider. Attending Name: Dr. Gonzalez Attending concurs with disposition: Patient and/or validated legal guardian concurs with disposition: Final disposition: discharge Legal status on admission: Voluntary/Patient has signed consent for treatment Assessment Details Total duration spent with the patient: 20 min CPT code(s) utilized: Non-Billable PHILL Manning, Psychotherapist DEC - Triage & Transition Services Callback: [phone] CIATE SALES documented in this encounter ED Notes * Sarah Sotomayor RN - 08/26/2024 9:39 PM CST V-DEC at bedside. CIATE SALES * Juarez Gonzalez MD - 08/26/2024 7:41 PM CST Emergency Department Note History of Present Illness Chief Complaint Anxiety HPI Kacey Hines is a 34 year old female with a history of depression and hypertension who presents for evaluation of anxiety. He has been having increasing panic attacks and shortness of breath lately. She denies any particular triggers for it. She reports having increased her dose of Lexapro recently from 10 mg to 20 mg a week ago. She feels more short of breath when she tries to go to sleep. She has been having a lot of health related concerns and fear. She feels like her symptoms onset when she stopped her routine anxiety medications in february. At the same time she also notes having had cellulitis of both leg. She has an OCD of having to keep checking her pulse continuously every minute or two, which ranges between 150 to 50 bpm.She mentions these symptoms are affecting her ADL. She also denies any thoughts of harming self or others. She has seen therapist but it did not help. 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 Review of External Notes Reviewed office visit from earlier today as well as telehealth behavioral visit from August 24. 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 Physical Exam Patient Vitals for the past 24 hrs: BP Temp Temp src Pulse Resp SpO2 Weight 08/26/24 1904 130/87 98.6 ??F (37 ??C) Temporal 94 18 100 % 77.4 kg (170 lb 10.2 oz) Physical Exam CV: ppi, regular Resp: speaking in full sentences without any resp distress Skin: warm dry well perfused Neuro: Alert, no gross motor or sensory deficits, gait stable, no clonus or abnormal neuromuscular rigidity, no tremulousness HEENT: Pupils 5 mm bilaterally, no nystagmus seen by her mental health bulk sausage casing tier off no indication for inpatient admission, will focus on exercising outpatient therapy. Psych: No active suicidal or homicidal ideation. Not responding to internal stimuli. Diagnostics Lab Results Labs Ordered and Resulted from Time of ED Arrival to Time of ED Departure - No data to display Imaging No orders to display EKG Independent Interpretation ED Course Medications Administered Medications LORazepam (ATIVAN) tablet 1 mg (1 mg Oral $Given 08/26/241934) Procedures Procedures Discussion of Management Discussed with our mental health bulk sausage casing tier off ED Course ED Course as of 08/26/242333Aug 26, 20241916 Reviewed office visit from earlier today as well as telehealth behavioral visit from August 24. 1939 I obtained the history and examined the patient as above. 2207 I talked to [facility] regarding the patient. Additional Documentation Medical Decision Making / Diagnosis [facility] Diagnoses: [facility] MDM Kacey Hines is a 34 year old female Ongoing anxiety and associated panic attacks despite recent increase in her Lexapro. No homicidal or suicidal ideation. No evidence on examination of serotonin syndrome. We discussed Ativan emergencyuse only and limited prescription unlikely to be refilled given tolerance dependence withdrawal etc. Disposition The patient was discharged. Diagnosis ICD-10-CM 1. ROSE MARY (generalized anxiety disorder) F41.1 2. Generalized anxiety disorder with panic attacks F41.1 F41.0 Discharge Medications Discharge Medication List as of 08/26/2024 10:50 PM START taking these medications Details LORazepam (ATIVAN) 1 MG tablet Take 1 tablet (1 mg) by mouth 3 times daily as needed for anxiety., Disp-12 tablet, R-0, E-Prescribe Scribe Disclosure: Molly Poole, am serving as a scribe at 7:54 PM on 08/26/2024 to document services personally performed by Juarez Gonzalez MD based on my observations and the provider's statements to me. Juarez Gonzalez MD 08/26/241 CIATE SALES * Caroline Paulino RN - 08/26/2024 7:08 PM CST Bed: ED05 Expected date: Expected time: Means of arrival: Comments: MH only CIATE SALES * Sarah Aguirre RN - 08/26/2024 7:06 PM CST Bed: ED04 Expected date: Expected time: Means of arrival: Comments: MH only CIATE SALES * Sarah Aguirre RN - 08/26/2024 7:04 PM CST Pt arrives with increased anxiety, pt was started on lexapro 3 weeks ago and hydroxyzine at needed. CIATE SALES * Sarah Russell RN - 08/26/2024 9:00 AM CST Pt feels anxiety has improved since taking oral medication CIATE SALES documented in this encounter Plan of Treatment Not on file documented as of this encounter Visit Diagnoses Diagnosis Anxiety- Primary Anxiety state, unspecified ROSE MARY (generalized anxiety disorder) Generalized anxiety disorder Generalized anxiety disorder with panic attacks documented in this encounter Administered Medications Inactive Administered Medications - up to 3 most recent administrations Medication Order MAR Action Action Date Dose Rate Site LORazepam (ATIVAN) tablet 1 mg 1 mg, Oral, ONCE, On Sat08/26/24 at 1935, For 1 dose $Given 08/26/2024 7:35 PM ASSOCIATE SALES 1 mg documented in this encounter Active and Recently Administered Medications Times are shown in ASSOCIATE SALES. Scheduled Medication Order 08/24/2024 2024 08/26/2024 LORazepam (ATIVAN) tablet 1 mg (COMPLETED) 1 mg, Oral, ONCE, On Sat08/26/24 at 1935, For 1 dose 1934 ($Given - Provi liudmila: Sarah Russell RN) documented in this encounter Care Teams Clerical Proofreader Relationship Specialty Start Date End Date Clinic, [facility] [address] [place] [address] PCP - General 08/23/24 documented as of this encounter
--- OUTSIDE RECORDS SUMMARY | 2024-08-31 19:41 | XMS_ITS | Encounter Summary ---
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 Emergency Dept [address] [place] [address] Myles Murillo MD Anxiety about health; Anxiety disorder, unspecified type Discharge Disposition: Home or Self Care Social [...] on file Legal Sex Female 4:22 AM PARTNER INTEGRATION PLANNER Gender Identity Not on file Sexual Orientation Not on file documented as of this encounter Last Filed Vital Signs Vital Sign Reading Time Taken Comments Blood Pressure 130/88 08/23/2024 4:10 PM PARTNER INTEGRATION PLANNER Pulse 90 08/23/2024 4:10 PM PARTNER INTEGRATION PLANNER Temperature 36.7 ??C (98.1 ??F) 08/23/2024 11:[address] Respiratory Rate 18 08/23/2024 4:10 PM PARTNER INTEGRATION PLANNER Oxygen Saturation 100% 08/23/2024 4:10 PM PARTNER INTEGRATION PLANNER Inhaled Oxygen Concentration - - Weight 81.3 kg (179 lb 3.7 oz) 08/23/2024 11:30 AM PARTNER INTEGRATION PLANNER Height 167.6 cm (5' 6) 08/23/2024 11:30 AM PARTNER INTEGRATION PLANNER Body Mass Index 28.93 08/23/2024 11:30 AM PARTNER INTEGRATION PLANNER documented in this encounter Discharge Instructions * Discharge Instructions* Myles Murillo MD - 08/23/2024 3:35 PM PARTNER INTEGRATION PLANNER Aftercare Plan Follow up with your primary care provider: 09/08/14 4:15PM Rosa Maria Phillips MD [facility] [address] [facility] [id number] > Schedule appointment for psychiatric medication [facility] [address] [place] [address] [email or web address] > Keep your therapy appointment tomorrow Saturday08/24/24 4:00PM Swati Murray MSW, [facility] [address] [place] [id number] SEE ADDITIONAL PAGE FOR YOUR PERSONALIZED SAFETY PLAN If I am feeling unsafe or I am in a crisis, I will: Contact my established care providers Call the [facility] 988 Go to the nearest emergency room Call 911 [facility] has a mental health crisis team you can call 13/05: [facility] [phone] Crisis Text Line Text [phone] You will be connected with a trained live crisis counselor to provide support. Por espcliff, texto TERRIE a [id number] o texto a 442-AYUDAME en [facility] Mental Health Warm Line Peer to peer support Saturday thru Saturday, 12 pm to 10 pm [phone] or [place] Support [place] [address] National [place] on Mental Illness (ALO) 564.876.6514 or 1.888.ALO.HELPS Mental Health Apps My3 [email or web address] VirtualHopeBox [email or web address]-[email or web address]-[email or web address] Additional Information Today you were seen by a licensed mental health professional through Triage and Transition services, [facility] ([facility]) for a crisis assessment in the Emergency Department at [facility]. It is recommended that you follow up with your established providers (psychiatrist, mental health therapist, and/or primary care doctor - as relevant) as soon as possible. Coordinators from [facility] will be calling you in the next 24-48 hours to ensure that you have the resources you need. You can also contact [facility] coordinators directly at [phone]. You may have been scheduled for or offered an appointment with a mental health provider. [facility] maintains an extensive network of licensed central hospital health providers to connect patients with the services they need. We do not charge providers a fee to participate in our referral network. We match patients with providers based on a patient's specific needs, insurance coverage, and location. Our first effort will be to refer you to a provider within your care system, and will utilize providers outside your care system as needed. Discharge Instructions Mental Health Concerns You were seen today for mental health concerns, such as depression, anxiety, or suicidal thinking. Your provider feels that you do not require hospitalization at this time. However, your symptoms maybecome worse, and you may need to return to the Emergency Department. Most treatments of depressionand suicidal thoughts are a process rather than a single intervention. Medications and counseling can take several weeks or more to help. Generally, every Emergency Department visit should have a follow-up clinic visit with either a primary or a specialty clinic/provider. Please follow-up as instructed by your emergency provider today. By accepting these discharge instructions: You promise to not harm yourself or others. You agree that if you feel you are becoming unable to keep that promise, you will do something to help yourself before you do anything to harm yourself or others. You agree to keep any safety plan arranged on your visit here today. You agree to take any medication prescribed or recommended by your provider. If you are getting worse, you can contact a friend or a family member, contact your counselor or family provider, contact a crisis line, or other options discussed with the provider or therapist today. At any time, you can call 911 and return to the Emergency Department for more help. You understand that follow-up is essential to your treatment, and you will make and keep appointments recommended on your visit today. How to improve your mental health and prevent suicide: Involve others by letting family, friends, counselors know. Do not isolate yourself. Avoid alcohol or drugs. Remove weapons, poisons from your home. Try to stick to routines for eating, sleeping and getting regular exercise. Try to get into sunlight. Bright natural light not only treats seasonal affective disorder but alsodepression. Increase safe activities that you enjoy. If you feel worse, contact 5-083-VWFZXIJ ( ), or call 911, or your primary provider/counselor for additional assistance. If you were given a prescription for medicine here today, be sure to read all of the information (including the package insert) that comes with your prescription. This will include important information about the medicine, its side effects, and any warnings that you need to know about. The pharmacist who fills the prescription can provide more information and answer questions you may have about the medicine. If you have questions or concerns that the pharmacist cannot address, please call or return to the Emergency Department. Remember that you can always come back to the Emergency Department if you are not able to see your regular provider in the amount of time listed above, if you get any new symptoms, or if there is anything that worries you. NER INTEGRATION PLANNER NER INTEGRATION PLANNER NER INTEGRATION PLANNER NER INTEGRATION PLANNER NER INTEGRATION PLANNER NER INTEGRATION PLANNER * Attachments The following attachments cannot be sent through Care Everywhere. * Anxiety: Treatment Options: Video (Bahamian) documented in this encounter Medications at Time of Discharge ferrous sulfate (FEROSUL) 325 (65 Fe) MG tablet Take 325 mg by mouth daily (with breakfast) omeprazole (PRILOSEC) [address] capsule Take 20 mg by mouth daily oxyCODONE (ROXICODONE) 5 MG tabletIndications :S/P primary low transverse Take 1-2 tablets (5-10 mg) by mouth every 4 hours as needed for pain 20 tablet 11/08/2018 Vit-Fe Fumarate-FA (PNV PLUS MULTIVITAMIN) 27-1 MG TABS per tablet Take 1 tablet by mouth daily documented as of this encounter Progress Notes * Annemarie Morales - 08/23/2024 4:11 PM CST Drying Tunnel Operator faxed DEC Consult, ANDREW, and facesheet to [facility] crisis per saud Fofana ask. Drying Tunnel Operator called and updated the county on referral made. [phone] JORGE Cristobal [facility]/ [phone] NER INTEGRATION PLANNER documented in this encounter Consult Notes * Ct Maldonado LPC, [facility] - 08/23/2024 2:00 PM CST Diagnostic Evaluation Consultation Crisis Assessment Patient Name: Kacey Hines Age: [age] year old Legal Sex: female Gender Identity: female Pronouns: she/her Race: White Ethnicity: Not or Language: Bahamian Patient was assessed: In person Crisis Assessment Start Date: 08/23/24 Crisis Assessment Start Time: 1428 Crisis Assessment Stop Time: 1502 (plus [phone]) Patient location: [facility] EMERGENCY [facility]PT ED05 Referral Data and Chief Complaint Kacey Hines presents to the ED by self. Patient is presenting to the ED for the following concerns: Significant behavioral change, Anxiety, Worsening psychosocial stress, Health stressors. Factors that make the mental health crisis life threatening or complex are: Pt reports increasing anxiety that has been interfering with daily life and that has become so overwhelming that she felt she needed to be seen today in ED. Pt reported that her anxiety has been escalating since she had tworecent cases of cellulitis which were successfully treated, but that triggered her to obsess about dying from sepsis. Pt reported that she has been obsessiving checking her heart rate and her oxygen levels, carrying a pulseox meter with her in her purse. Pt acknowledged that she had been seen by her PCP last week, and pt stated that she has been takingmedications as prescribed, including increase in Lexapro dose. Pt reported that she experiences OCDsymptoms, and that Lexapro has helped her in the past, but that this time she does not feel the medication is helping as quickly. Pt verbalized understanding from education provided by her PCP that medicaiton can take several weeks to take full effect. Pt has follow up appointment scheduled with PCP in about 2.5 weeks. Pt has appointment with LMHP through primary care clinic schedule for tomorrow afternoon. Pt reported having supportive friends andextended family members, including family members of pt's boyfriend. Pt's boyfriend was present at [facility] during the interview, per pt's request, and offered collateral information, including that pt has not expressed any SI and that he does not have any safety concerns for pt. Pt denied SI/HI, plan, intent, and previous attempts. Pt denied A/V hallucinations and did not appear to be responding to internal stimuli. Pt responded to questons when prompted coherently and with appropriate detail. Informed Consent and Assessment Methods Explained the [...] with performance or anything else. Pt reported thatshe has been struggling with her mental health [...] psychiatric medicaiton provider. Brief Psychosocial History Family: (significant other/boyfriend), Children (pt did not discuss any) Support System: Significant Other, Sibling(s), Parent(s), Friend Employment Status: employment seeking (just lost job (first time in life)) Source of Income: none Financial Environmental Concerns: insurance, none, unemployed Current Hobbies: interaction with pets, music, puzzles, reading, family functions Barriers in Personal Life: mental health concerns Significant Clinical History Current Anxiety Symptoms: obsessions/compulsions, excessive worry, anxious Current Depression/Trauma: sense of doom, difficulty concentrating Current Somatic Symptoms: somatic symptoms (abdominal pain, headache, tension), anxious, excessive worry Current Psychosis/Thought Disturbance: distractability (no overt evidence of acute psychosis) Current Eating Symptoms: loss of appetite, recent weight loss (vomiting) Chemical Use History: Alcohol: (pt denies) Benzodiazepines: (pt reports taking Rx as prescribed-- only occasional use-- states has 15 per month Rx of lorazepam) Opiates: (pt denies) Cocaine: (pt denies) Marijuana: (pt denies) Other Use: (pt denies) Withdrawal Symptoms: (pt denies) Addictions: (pt denies) Past diagnosis: Anxiety Disorder, PTSD Family history: No known history of mental health or chemical health concerns Past treatment: Primary Care Collateral Information Pt's boyfriend at bedside during interview per pt request and contributed during interview with collateral info. Has patient made comments about wanting to kill themselves/others: no If d/c is recommended, can they take part in safety/aftercare planning: yes Risk Assessment [place] Suicide Severity Rating Scale Full Clinical Version: Suicidal Ideation Q1 Wish to be (Lifetime): No Q2 Non-Specific Active Suicidal Thoughts (Lifetime): No Q6 Suicide Behavior (Lifetime): no Suicidal Behavior (Lifetime) Actual Attempt (Lifetime): No Has subject engaged in non-suicidal self-injurious behavior? (Lifetime): No Interrupted Attempts (Lifetime): No Aborted or Self-Interrupted Attempt (Lifetime): No Preparatory Acts or Behavior (Lifetime): No [place] Suicide Severity Rating Scale Recent: Suicidal Ideation [...] failure, unemployment/underemployment, recent life events (see comment) (recent job loss; lost health insurance) Protective Factors: Protective Factors: intact marriage or [...] inappropriate behavior? no Mental Status Exam Affect: Blunted Appearance: Appropriate Attention Span/Concentration: Attentive Eye Contact: Variable (appropriate) Fund of Knowledge: Appropriate Language /Speech Content: Fluent Language /Speech Volume: Normal Language /Speech Rate/Productions: Normal Recent Memory: Intact Remote Memory: Intact Mood: Anxious Orientation to Person: Yes Orientation to Place: Yes Orientation to Time of Day: Yes Orientation to Date: Yes Situation (Do they understand why they are here?): Yes Psychomotor Behavior: (fidgeting) Thought Content: Clear Thought Form: Obsessive/Perseverative Medication Psychotropic medications: Medication Orders - Psychiatric (From admission, onward) None Current Care Team Patient Care Team: Gladys Summers as PCP - General Diagnosis Patient Active [...] and Substantiation of Recommendations After therapeutic assessment, intervention, and aftercare planning by ED care team and [facility], and inconsultation with attending provider, the patient's circumstances and mental state were deemed appropriate for outpatient management. It is the recommendation of this clinician that pt discharge with outpatient mental health support. At this time, the pt is not presenting as an acute risk to self or others due to the following factors: Denies active SI/HI, plan, intent; reality testing intact; demonstrates insight into condition; stable housing; supportive psychosocial network; established outpatient medical care; making future-oriented statements; responsibilities to others including family and boyfriend. Patient able to meaningfully engage in safety and aftercare planning at time of interview. Pt has follow up appointment scheduled with PCP in about 2.5 weeks. Pt has appointment with LMHP through her primary care clinic scheduled for tomorrow afternoon. Pt verbalized understanding that she can call for appointments for psychiatric medication management and psychotherapy though [facility] while she is uninsured. Pt signed ANDREW for referral to follow up with [facility] stabilization services. Disposition Recommended disposition: Individual Therapy, Medication Management, Other. please comment (referralto critical access hospital crisis stabilization services) Reviewed case and recommendations with attending provider. Attending Name: Myles Murillo MD Attending concurs with disposition: yes Patient and/or validated legal guardian concurs with disposition: yes Final disposition: discharge Legal status on admission: Voluntary/Patient has signed consent for treatment Assessment Details Total duration spent with the patient: 34 min CPT code(s) utilized: 54144 - Psychotherapy for Crisis - 60 (30-74*) min CT MALDONADO M.Ed., [facility], [facility] Licensed Mental Health Professional Triage and Transition Services - [facility] [phone] NER INTEGRATION PLANNER documented in this encounter ED Notes * Katie Rodriguez RN - 08/23/2024 12:02 PM CST at bedside NER INTEGRATION PLANNER * Myles Murillo MD - 08/23/2024 11:56 AM CST Emergency Department Note History of Present Illness Chief Complaint Panic Attack and Shortness of Breath HPI Kacey Hines is a 33 year old female with history of depression disorder and hypertension who presents to the ED for evaluation of panic attack and shortness of breath. The patient reports she been having health-related anxiety and obsessive/compulsive thoughts regarding health fears. She explains that last night she continuously was checking her heart rate from 8 PM until 3 AM. She was concerned that she was not breathing enough every time she tried to fall asleep and noticed her heart rate was below the 50s which made her worry. About 1 week ago her Lexapro prescription was increased from 10 mg to 20 mg. She noticed that the anxiety was triggered by when she had cellulitis. The priorcellulitis is now resolved. She been under a lot of stress yesterday after she had lost her job of 13 years. She reports taking Rizatriptan for migraines, hydroxyzine with minimal improvement, and Atenolol. She has Therapist appointment tomorrow. Denies any episodes of syncope, chest pain, fevers. She denies depression, suicidal or homicidal thoughts. No hallucinations. Independent Historian None Review of External Notes I reviewed PCP clinic note from 08/19/24 Kacey Hines is an 33 y.o. female [...] that time for a complete health maintenance exam. Past Medical History Medical History and Problem List Past Medical History: Diagnosis Date Depressive disorder Hypertension Medications ferrous sulfate (FEROSUL) 325 (65 Fe) MG tablet omeprazole (PRILOSEC) [address] capsule oxyCODONE (ROXICODONE) 5 MG tablet Vit-Fe Fumarate-FA (PNV PLUS MULTIVITAMIN) 27-1 MG TABS per tablet Surgical History Past Surgical History: Procedure Laterality Date SECTION N/A 11/05/2018 Procedure: SECTION; Surgeon: Caroline Escamilla MD; Location: L+D [facility] D&C 11/2017 wisdom teeth Physical Exam Patient Vitals for the past 24 hrs: BP Temp Temp src Pulse Resp SpO2 Height Weight 08/23/24 1130 (!) 147/95 98.1 ??F (36.7 ??C) Temporal 118 18 99 % 1.676 m (5' 6) 81.3 kg (179 lb 3.7 oz) Physical Exam General: Well appearing, nontoxic. Resting comfortably Head: Scalp, face, and head appear normal Eyes: Pupils are equal, round Conjunctivae non-injected and sclerae white ENT: The external nose is normal Pinnae are normal Neck: Normal range of motion There is no rigidity noted Trachea is in the midline CV: Regular rate and rhythm Normal S1/S2, no S3/S4 No murmur or rub. Radial pulses 2+ bilaterally. Resp: Lungs are clear and equal bilaterally There is no tachypnea No increased work of breathing No rales, wheezing, or rhonchi GI: Abdomen is soft, no rigidity or guarding No distension, or mass No tenderness or rebound tenderness MS: Normal muscular tone Skin: No rash or acute skin lesions noted Neuro: Awake and alert Speech is normal and fluent Moves all extremities spontaneously Psych: Anxious affect. Denies depressed mood. Endorses obsessive-compulsive thoughts and perseveration regarding various somatic health concerns. No suicidal or homicidal ideation. No hallucinations.Patient does not have any evidence of response to internal stimuli or delusions. Appropriate interactions. Diagnostics Lab Results Labs Ordered and Resulted from Time of ED Arrival to Time of ED Departure - No data to display Imaging No orders to display EKG ECG taken at 1209, ECG read at 1232 Normal sinus rhythm with sinus arrhythmia Rate 70 bpm. WY interval 118 ms. QRS duration 80 ms. QT/QTc 398/429 ms. P-R-T axes 31 65 36. Independent Interpretation None ED Course Medications Administered Medications LORazepam (ATIVAN) tablet 1 mg (has no administration in time range) Procedures Procedures Discussion of Management SEE BELOW ED Course ED Course as of 08/25/24 1026 Sun Aug 23, 2024 1156 I obtained history and examined the patient as noted above. 1505 I discussed the case with Ct LIN. Recommend discharge with outpatient psychiatry and crisis appointments Additional Documentation None Medical Decision Making / Diagnosis [facility] Diagnoses: None MIPS None MDM Kacey Hines is a 33 year old female who presents to the emergency department with increasing anxiety symptoms as well as obsessive/compulsive thoughts and fears about her health. She has been concerned about having a low heart rate at nighttime as well as feeling intermittently short of breath. No other concerning symptoms to suggest a primary organic cause. I discussed extensively with thepatient that sinus bradycardia is normal especially at night when resting. She has no evidence of any heart rhythm disturbance or abnormality, abnormal EKG findings or concerning symptoms of underlying cardiopulmonary disease. I provided her with reassurance that at this time there is no evidence of any serious or life-threatening physical health illness or disease at this time. Patient was seen and evaluated by DELIA who recommended discharge with close outpatient follow-up with psychiatry and mental health crisis appointments. Patient is on Lexapro and has hydroxyzine at home. She was also prescribed atenolol to help with symptoms of palpitations by her primary care physician. No indicationfor psychiatric hospitalization at this time. Patient is stable for discharge with close outpatientfollow-up with her primary care physician, psychiatrist, therapist as well as crisis appointments. Patient is agreeable with the plan of care and she was discharged in stable condition. Disposition The patient was discharged. Diagnosis ICD-10-CM 1. Anxiety about health R45.89 2. Anxiety disorder, unspecified type F41.9 Discharge Medications Discharge Medication List as of 08/23/2024 4:06 PM Scribe Disclosure: I, Susan Rodriguez, am serving as a scribe at 12:45 PM on 08/23/2024 to document services personally performed by Myles Murillo MD based on my observations and the provider's statements to me. Myles Murillo MD 08/25/24 1031 NER INTEGRATION PLANNER * Katie Rodriguez RN - 08/23/2024 11:50 AM CST Pt kneeled down in corner of room with her hands up around face, tears in eyes. Pt looks visibly upset. Pt is having increased anxiety due to behaviors coming from outside of pt room. MD informed, ativan ordered and given. MD at bedside to assess pt and plan in place. DEC ordered to see pt. NER INTEGRATION PLANNER * Zehra Win RN - 08/23/2024 11:31 AM CST Pt presents to the ED stating she feels like she's having a panic attack for the last month and she's having trouble breathing. Pt states she's been obsessing about her HR, and when it gets too low she worries and then it gets too high and she worries. Pt states that she's had panic attacks before but this is different. Pt states she has stressors. NER INTEGRATION PLANNER documented in this encounter Plan of Treatment Not on file documented as of this encounter Procedures Procedure Name Priority Date/Time Associated Diagnosis Comments EKG 12-LEAD, TRACING ONLY STAT 08/23/2024 12:09 PM PARTNER INTEGRATION PLANNER documented in this encounter Results * EKG 12-lead, tracing only (08/23/2024 12:09 PM PARTNER INTEGRATION PLANNER) Systolic Blood Pressure mmHg RADIOLOGY RESULTS Diastolic Blood Pressure mmHg RADIOLOGY RESULTS Ventricular Rate 70 BPM RAD IOLOGY RESULTS Atrial Rate 70 BPM RADIOLOG Y RESULTS WY Interval 118 ms RADIOLOG Y RESULTS QRS Duration 80 ms RADIOLO GY RESULTS QT 398 ms RADIOLOGY RESULTS QTc 429 ms RADIOLOGY RESULTS P [place] 31 degrees RADIOLOGY RESULTS R AXIS 65 degrees RADIOLOGY RESULTS T [place] 36 degrees RADIOLOGY RESULTS Interpretation ECG Sinus rhythm with sinus arrhythmia Normal ECG No previous ECGs available Confirmed by - EMERGENCY ROOM, PHYSICIAN ([id number]), photography editor ILEANA KYLE ([id number]) on 08/24/2024 7:10:40 AM RADIOLOGY RESULTS 08/23/2024 12:0 9 PM [employer]NER [employer] 08/24/2024 7:10 AM [employer]NER [employer]TE[employer]ATION [employer] Myles Murillo MD ECG ORDERABLES Edited Result - Final RADIOLOGY RESULTS documented in this encounter Visit Diagnoses Diagnosis Anxiety- Primary Anxiety state, unspecified Anxiety about health Anxiety disorder, unspecified type documented in this encounter Administered Medications Inactive Administered Medications - up to 3 most recent administrations Medication Order MAR Action Action Date Dose Rate Site LORazepam (ATIVAN) tablet 1 mg 1 mg, Oral, ONCE, On 08/23/24 at 1200, For 1 dose $Given 08/23/2024 11:59 AM [employer]NER [employer] 1 mg documented in this encounter Active and Recently Administered Medications Due to Daylight Saving Time, this section may contain times in both CDT and [employer]. Scheduled Medication Order 08/21/2024 08/22/2024 08/23/2024 LORazepam (ATIVAN) tablet 1 mg (COMPLETED) 1 mg, Oral, ONCE, On 08/23/24 at 1200, For 1 dose 1159 ($Given - Provi liudmila: Kayanne Kroc, RN) documented in this encounter Care Teams [employer] Farmer Relationship Specialty Start Date End Date Clinic, [facility] [address] [place] [address] PCP - General 08/23/24 documented as of this encounter
--- OUTSIDE RECORDS SUMMARY | 2024-08-31 19:41 | XMS_ITS | Encounter Summary ---
Author Organization [facility] Address [address] [place] [id number] Care Team Providers Care Manager Strategic Name Role Phone Clinic, [facility] Pr ovider Reason for Visit * Reason Comments Anxiety Encounter Details Date Type Department Care Team ([facility] st Contact Info) Description 08/28/2024 3:22 PM GLOBAL SUPPLY CHAIN DIRECTOR - 08/28/2024 6:57 PM GLOBAL SUPPLY CHAIN DIRECTOR Emergency [facility] Emergency Dept [address] [place] [id number] [phone] Yvon Mack MD [address] [place] [address] [place] [address] [id number] Generalized anxiety disorder with panic attacks Discharge [...] on file Legal Sex Female 4:22 AM GLOBAL SUPPLY CHAIN DIRECTOR Gender Identity Not on file Sexual Orientation Not on file documented as of this encounter Last Filed Vital Signs Vital Sign Reading Time Taken Comments Blood Pressure 126/83 08/28/2024 6:52 PM GLOBAL SUPPLY CHAIN DIRECTOR Pulse 76 08/28/2024 6:52 PM GLOBAL SUPPLY CHAIN DIRECTOR Temperature 36.9 ??C (98.5 ??F) 08/28/2024 3:26 PM CS T Respiratory Rate 18 08/28/2024 3:26 PM GLOBAL SUPPLY CHAIN DIRECTOR Oxygen Saturation 99% 08/28/2024 6:53 PM GLOBAL SUPPLY CHAIN DIRECTOR Inhaled Oxygen Concentration - - Weight 80.3 kg (177 lb) 08/28/2024 3:26 PM GLOBAL SUPPLY CHAIN DIRECTOR Height 167.6 cm (5' 6) 08/28/2024 3:26 PM GLOBAL SUPPLY CHAIN DIRECTOR Body Mass Index 28.57 08/28/2024 3:26 PM GLOBAL SUPPLY CHAIN DIRECTOR documented in this encounter Discharge Instructions * Discharge Instructions* Chaim Mckinney S, WAREHOUSE HAND - 08/28/2024 6:42 PM GLOBAL SUPPLY CHAIN DIRECTOR Pipe Supervisor encourage Pt to take her medications consistently as prescribed and keep all of her scheduled appointments with her outpatient service providers. Pipe Supervisor recommended Pt to continue follow up with her new current outpatient therapy service to improve coping skills. Pipe Supervisor recommended Pt to engage in new outpatient psychiatry for medication management as well as IOP Day treatment. However, Ptshared she has no health insurance as she was applying for [facility] insurance. DEC coordinator will contact Pt within next 1 or 2 business days to ensure coordination of care and provide assistance with appointments. [facility] specializing OCD Treatment Virtual support group available [facility] in [place] invites anyone in the local community to attend a virtual Parent and Caregiver Support Group for those who have a loved one struggling with OCD or anxiety. Meets the third Saturday of each month, 5 to 6 pm. Please RSVP to [email or web address] if you plan to attend. [email or web address] [phone] [address] [facility] [address] [place] [address] Below is a list of FREE Mental Health Options in the [facility] Area: [facility] ([facility]) Serves those in emotional crisis with 24-hour, hasip-krp-h-week crisis counseling, assessment, referral, and medication management. Suicidal: [phone] Consultation: [phone] [place] [address], 13/05 [facility] [phone] Serves those in need of free outpatient mental health care Hours: Mon, Sat, Fri 1-3pm; Sat- 6:30-8:30pm [facility] [address] [place] [id number] AL SUPPLY CHAIN DIRECTOR documented in this encounter Medications at Time [...] as of this encounter Consult Notes * Chaim Mckinney LICSW - 08/28/2024 5:36 PM CSTAssociated Order(s): DIAGNOSTIC EVALUATION [facility]ENTER (DEC) ASSESSMENT ORDER Diagnostic Evaluation Consultation Crisis Assessment Patient Name: Kacey Hines Age: [age] year old Legal Sex: female Gender Identity: female Pronouns: Race: White Ethnicity: Not or Language: Ukrainian Patient was assessed: Virtual: The Political Student Crisis Assessment Start Date: 08/28/24 Crisis Assessment Start Time: 1735 Crisis Assessment Stop Time: 1811 Patient location: [facility] EMERGENCY DEPT Referral Data and Chief Complaint Kacey Hines presents to the ED via EMS. Patient is presenting to the ED for the following concerns: Depression, Suicidal ideation, Significant behavioral change, Worsening psychosocial stress, Anxiety, Health stressors. Factors that make the mental health crisis life threatening or complex are: Pt has severe panic attacks and anxiety with OCD. Pt has no health insurance and could not keep her new outpatient psychiatry appointment. Pt presenting in the ER today with panic attacks, anxiety and passive suicidal ideations.. Informed Consent and Assessment Methods Explained the [...] available. : done Patient response to interventions: eager to participate, acceptance expressed, verbalizes understanding Coping skills were attempted to reduce the crisis: practicing yoga, deep breathing exercise, meditation, affirmations History of the Crisis Pt is a 34 year old White female with history of panic attacks, anxiety, depression and OCD. Pt wasbrought to the ER today by EMS due to worsening of panic attacks, anxiety and suicidal ideations. Pt remarked, My mom called 911 because I was having mental health crisis, I did not fee safe at home, having severe anxiety, constant OCD thoughts, SOB, hard time sleeping and could not calm myself down. as her reasons for visiting the ER today. Per EPIC record, Pt was seen in the ER, with same presentation as she completed her DEC Assessment, then referred to outpatient mental health services. Pt reported she was able to see her new outpatient therapist 1x but could not keep her new outpatient psychiatry appointment due to having no health insurance. Pt shared she was in the process of applying for [employer] insurance. Pt reported she was prescribed with Ativan 2 days ago when she was in theER and it was helpful to her. However, Pt noted she was limiting herself to not to take Ativan as she did not want to be dependent and run out of the medication. Pt identified recent loss of her employment and having obssessive thoughts about her health issues and cellulitis as triggers leading to her current mental health crisis. Pt endorsed increased depression, worry, panic attacks, racing thoughts and anxiety. Pt reported having poor sleep with loss of appetite. Pt denied having acute psychosis and ja. Pt endorsed passive suicidal ideations without intent and plan. Pt denied having homicidal ideations, access to firearms, history of SIB and previous suicide attempt. Brief Psychosocial History Family: Lives with Significant Other, Children yes Support System: Significant Other, Parent(s), Sibling(s) Employment Status: unemployed Source of Income: unable to assess, none Financial Environmental Concerns: unemployed, insurance, none Current Hobbies: reading, writing/journaling/blogging, social media/computer activities, music, television/movies/videos, exercise/fitness, meditation, family functions, group/social activities Barriers in Personal Life: behavioral concerns, financial concerns, mental health concerns, lack ofmotivation, emotional concerns Significant Clinical History Current Anxiety Symptoms: panic attack, shortness of breath or racing heart, anxious, obsessions/compulsions, racing thoughts, excessive worry Current Depression/Trauma: apathy, crying or feels like crying, helplessness, hopelessness, sadness, sense of doom, thoughts of /suicide, impaired decision making, withdrawl/isolation, negativistic Current Somatic Symptoms: excessive worry, shortness of breath or racing heart, anxious, racing thoughts Current Psychosis/Thought Disturbance: Current Eating Symptoms: loss of appetite Chemical Use History: Alcohol: None Benzodiazepines: None Opiates: None Cocaine: None Marijuana: None Other Use: None Past diagnosis: Anxiety Disorder, Depression (history of OCD) Family history: Anxiety Disorder, Bipolar Disorder, Depression Past treatment: Individual therapy, Primary Care, Psychiatric Medication Management Details of most recent treatment: Pt reported she had seen her new outpatient therapist 1x so far. Other relevant history: Pt shared her parents were and she has one brother. Pt reported she was single but has one daughter. Pt reported living with her boyfriend and daughter. 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 Pt denied having medical conditions and history of legal issues. Pt denied history of being abused. Collateral Information Is there collateral information: Yes Collateral information name, relationship, phone number: Beth Gibson [phone] What happened today: Beth reported Pt was suffering from severe anxiety and panic attacks for past 6 weeks and she was not getting any better. What is different about patient's functioning: Beth reported Pt has been more depressed, difficulty sleeping and eating lately. Concern about alcohol/drug use: What do you think the patient needs: Has patient made comments about wanting to kill themselves/others: no If d/c is recommended, can they take part in safety/aftercare planning: yes Additional collateral information: Risk Assessment [place] Suicide Severity Rating Scale Full Clinical Version: Suicidal Ideation Q1 Wish to be (Lifetime): Yes Q2 Non-Specific Active Suicidal Thoughts (Lifetime): Yes 3. Active Suicidal Ideation with any Methods (Not Plan) Without Intent to Act (Lifetime): No Q4 Active Suicidal Ideation with Some Intent to Act, Without Specific Plan (Lifetime): No Q5 Active Suicidal Ideation with Specific Plan and Intent (Lifetime): No Q6 Suicide Behavior (Lifetime): no Intensity of Ideation (Lifetime) Most Severe Ideation Rating (Lifetime): 1 Suicidal Behavior (Lifetime) Actual Attempt (Lifetime): No Has subject engaged in non-suicidal self-injurious behavior? (Lifetime): No Interrupted Attempts (Lifetime): No Aborted or Self-Interrupted Attempt (Lifetime): No Preparatory Acts or Behavior (Lifetime): No R[place]ford Suicide Severity Rating Scale Recent: Suicidal Ideation (Recent) Q1 Wished to be (Past Month): yes Q2 Suicidal Thoughts (Past Month): yes Q3 Suicidal Thought Method: no Q4 Suicidal Intent without Specific Plan: no Q5 Suicide Intent with Specific Plan: no Level of Risk per Screen: low risk Intensity of Ideation (Recent) Most Severe Ideation Rating (Past 1 Month): 1 Suicidal Behavior (Recent) Actual Attempt (Past 3 Months): No Has subject engaged in non-suicidal self-injurious behavior? (Past 3 Months): No Interrupted Attempts (Past 3 Months): No Aborted or Self-Interrupted Attempt (Past 3 Months): No Preparatory Acts or Behavior (Past 3 Months): No Environmental or Psychosocial Events: work or task failure, challenging interpersonal relationships, helplessness/hopelessness, barriers to accessing healthcare, unemployment/underemployment, other life stressors, neither working nor attending school, recent life events (see comment) Protective Factors: Protective Factors: lives in a responsibly safe and stable environment, intact marriage or domestic partnership, responsibilities and duties to others, including pets and children, help seeking, supportive ongoing medical and mental health care relationships, constructive use ofleisure time, enjoyable activities, resilience, reality testing ability Does the patient have thoughts of harming others? Feels Like Hurting Others: no Previous Attempt to Hurt Others: no Current presentation: (Pt was calm, alert, oriented, engaged and cooperative.) Is the patient engaging in sexually inappropriate behavior?: no Is the patient engaging in sexually inappropriate behavior? no Mental Status Exam Affect: Constricted Appearance: Appropriate Attention Span/Concentration: Attentive Eye Contact: Variable, Engaged Fund of Knowledge: Appropriate Language /Speech Content: Fluent Language /Speech Volume: Normal Language /Speech Rate/Productions: Normal Recent Memory: Variable Remote Memory: Variable Mood: Anxious, Apathetic, Depressed, Sad Orientation to Person: Yes Orientation to Place: Yes Orientation to Time of Day: Yes Orientation to Date: Yes Situation (Do they understand why they are here?): Yes Psychomotor Behavior: Normal Thought Content: Clear, Suicidal Thought Form: Intact Mini-Cog Assessment Number of [...] S/P primary low transverse Z98.891 Anxiety F41.9 ROSE MARY (generalized anxiety disorder) F41.1 Panic attack F41.0 Primary Problem This Admission Active Hospital Problems ROSE MARY (generalized anxiety disorder) Panic attack Moderate major depression (H) Clinical Summary and Substantiation of Recommendations Pt presenting in the ER today due to severe panic attacks, anxiety and suicidal ideations. Per EPICrecord, Pt was seen in the ER, with same presentation as she completed her DEC Assessment, then referred to outpatient mental health services. Pt reported she was able to see her new outpatient therapist 1x but could not keep her new outpatient psychiatry appointment due to having no health insurance. Pt shared she was in the process of applying for [facility] insurance. Pt reported she was prescribed with Ativan 2 days ago when she was in the ER and it was helpful to her. However, Pt noted she was limiting herself to not to take Ativan as she did not want to be dependent and run out of the medication. Pt identified recent loss of her employment and having obssessive thoughts about her health issues and cellulitis as triggers leading to her current mental health crisis. Pt endorsed increaseddepression, worry, panic attacks, racing thoughts and anxiety. Pt reported having poor sleep with loss of appetite. Pt denied having acute psychosis and ja. Pt endorsed passive suicidal ideations without intent and plan. Pt noted she did not have suicidal ideations but felt like she was burden to her family. Pt denied having homicidal ideations, access to firearms, history of SIB and previous suicide attempt. Pt was able to engage in her DEC Safety plan as she felt safe to go to her mom's place. Pt was able to identify her coping skills and support system to mitigate her current mental health crisis. Pt was not imminent danger to herself or to others. Pt was appropriate for outpatient mental health services. Patient coping skills attempted to reduce the crisis: practicing yoga, deep breathing exercise, meditation, affirmations Disposition Recommended disposition: Individual Therapy, Medication Management, Programmatic Care Reviewed case and recommendations with attending provider. Attending Name: Yvon Mack MD Attending concurs with disposition: yes Patient and/or validated legal guardian concurs with disposition: yes Final disposition: discharge Legal status on admission: Assessment Details Total duration spent with the patient: 36 min CPT code(s) utilized: 87453 - Psychotherapy for Crisis - 60 (30-74*) min PHILL Linares, Psychotherapist DEC - Triage & Transition Services Callback: [phone] AL SUPPLY CHAIN DIRECTOR documented in this encounter ED Notes * Yvon Mack MD - 08/28/2024 4:13 PM CST Emergency Department Note History of Present Illness Chief Complaint Anxiety HPI Kacey Hines is a 34 year old female with a history of depression and hypertension who presents for evaluation of anxiety. He has been having increasing panic attacks and shortness of breath lately. She denies any particular triggers for it. She feels more short of breath when she tries to go to sleep. She has been having a lot of health related concerns and fear. She reports loss of appetite completely with losing 11 pounds over the last week.She denies abdominal pain. She was here in theED on 08/26 and got prescribed lorazepam, which helps relieve her symptoms. However, she tried not taking it once which led her to increase in her anxiety symptoms today. She also notes having had cellulitis of both leg in February which she reports might have triggered her anxiety. She has an OCD of having to keep checking her pulse continuously every minute or two, which ranges between 150 to 50 bpm.She mentions these symptoms are affecting her ADL. She also denies any thoughts of harming self or others. 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 She does not have a psychiatry doctor, she gets her medications to manage her anxiety from her primary care doctor. Review of External Notes Prior notes reviewed from 2 days ago. The patient was seen by DELIA and felt to be appropriate for outpatient follow-up in the context of her anxiety and OCD. Past Medical History Medical History and Problem List Depression Hypertension ROSE MARY Migraine PTSD Bipolar type 1 Medications Omeprazole Oxycodone Escitalopram Hydroxyzine Atenolol Lorazepam Rizatriptan Surgical History C section Bridge Tender surgery [place] tooth removal Physical Exam Patient Vitals for the past 24 hrs: BP Temp Temp src Pulse Resp SpO2 Height Weight 08/28/24 1853 -- -- -- -- -- 99 % -- -- 08/28/24 1852 126/83 -- -- 76 -- -- -- -- 08/28/24 1526 125/75 98.5 ??F (36.9 ??C) Oral 76 18 99 % 1.676 m (5' 6) 80.3 kg (177 lb) Physical Exam Constitutional: General: She is not in acute distress. Appearance: Normal appearance. She is not diaphoretic. HENT: Head: Atraumatic. Mouth/Throat: Mouth: Mucous membranes are moist. Eyes: General: No scleral icterus. Conjunctiva/sclera: Conjunctivae normal. Cardiovascular: Rate and Rhythm: Normal rate and regular rhythm. Heart sounds: Normal heart sounds. Pulmonary: Effort: No respiratory distress. Breath sounds: Normal breath sounds. Abdominal: General: Abdomen is flat. There is no distension. Tenderness: There is no abdominal tenderness. Musculoskeletal: Cervical back: Neck supple. Skin: General: Skin is warm. Capillary Refill: Capillary refill takes less than 2 seconds. Findings: No rash. Neurological: General: No focal deficit present. Mental Status: She is alert and oriented to person, place, and time. Psychiatric: Comments: Anxious. Cooperative. Diagnostics EKG ECG results from 08/28/24 EKG 12-lead, tracing only Value Systolic Blood Pressure Diastolic Blood Pressure Ventricular Rate 64 Atrial Rate 64 LA Interval 130 QRS Duration 80 QT 430 QTc 443 P Chacon 33 R AXIS 69 T Chacon 38 Interpretation ECG Sinus rhythm No significant changes compared with ECG of 23-Aug-2024, Interepreted by me at 1732 Independent Interpretation None ED Course Medications Administered Medications - No data to display Procedures Procedures Discussion of Management None ED Course ED Course as of 08/28/242 SatAug 28, 2024 1636 I obtained the history and examined the patient as above. 1641 A social work consult was ordered and DELIA met with the patient. Findings were discussed 1847 I rechecked and updated the patient. Patient feels ready to go home Additional Documentation None Medical Decision Making / Diagnosis [facility] Diagnoses: None MIPS None MDM Kacey Hines is a 34 year old female with a history of significant anxiety and OCD. She is compulsively checking her heart rate with an irrational concern that her heart might stop if the rate goes into the 50s. We discussed at length that she is a very safe heart rate for her age and underlying health conditions. EKG looks normal. She was seen by DELIA and is virgilio for safety and appropr iate for outpatient follow-up. She says she has hydroxyzine for use at home but has not been using it. She will try this and follow-up with her physician to see if she can increase her dose of Lexapro soon. Disposition The patient was discharged. Diagnosis ICD-10-CM 1. Generalized anxiety disorder with panic attacks F41.1 F41.0 Discharge Medications Discharge Medication List as of 08/28/2024 6:50 PM Scribe Disclosure: Molly Poole, am serving as a scribe at 4:13 PM on 08/28/2024 to document services personally performed by Yvon Mack MD based on my observations and the provider's statements to me. Yvon aMck MD 08/28/242242 AL SUPPLY CHAIN DIRECTOR * Katilin Goldberg RN - 08/28/2024 3:44 PM CST Pt searched with security purse locked up pt in street clothes AL SUPPLY CHAIN DIRECTOR * Kaitlin Goldberg RN - 08/28/2024 3:27 PM CST Pt arrives via [facility] with feelings of being over whelmed and feeling over it Pt states that she has thoughts of hurting herself but no actual plan. PT states that she also has SOB but its only when her anxiety is really bad. Triage Assessment (Adult) Row Name 08/28/24 1527 Triage Assessment Airway WDL WDL Respiratory WDL Respiratory WDL X Skin Circulation/Temperature WDL Skin Circulation/Temperature WDL WDL Cardiac WDL Cardiac WDL WDL Peripheral/Neurovascular WDL Peripheral Neurovascular WDL WDL Cognitive/Neuro/Behavioral WDL Cognitive/Neuro/Behavioral WDL WDL [place] Coma Scale Best Eye Response 4-->(E4) spontaneous Best Motor Response 6-->(M6) obeys commands Best Verbal Response 5-->(V5) oriented [place] Coma Scale Score 15 AL SUPPLY CHAIN DIRECTOR * Joyce Santo RN - 08/28/2024 3:22 PM CST Bed: [facility] Expected date: Expected time: Means of arrival: Comments: [place] [id number] AL SUPPLY CHAIN DIRECTOR documented in this encounter Plan of Treatment Not on file documented as of this encounter Procedures Procedure Name Priority Date/Time Associated Diagnosis Comments EKG 12-LEAD, TRACING ONLY STAT 08/28/2024 5:30 PM GLOBAL SUPPLY CHAIN DIRECTOR documented in this encounter Results * EKG 12-lead, tracing only (08/28/2024 5:30 PM GLOBAL SUPPLY CHAIN DIRECTOR) Systolic Blood Pressure mmHg RADIOLOGY RESULTS Diastolic Blood Pressure mmHg RADIOLOGY RESULTS Ventricular Rate 64 BPM RAD IOLOGY RESULTS Atrial Rate 64 BPM RADIOLOG Y RESULTS LA Interval 130 ms RADIOLOG Y RESULTS QRS Duration 80 ms RADIOLO GY RESULTS QT 430 ms RADIOLOGY RESULTS QTc 443 ms RADIOLOGY RESULTS P Chacon 33 degrees RADIOLOGY RESULTS R AXIS 69 degrees RADIOLOGY RESULTS T Chacon 38 degrees RADIOLOGY RESULTS Interpretation ECG Sinus rhythm Normal ECG When compared with ECG of 23-Aug-2024 12:09, No significant change was found Confirmed by - EMERGENCY ROOM, PHYSICIAN ([id number]), book editor ILEANA KYLE ([id number]) on 08/31/2024 7:21:29 AM RADIOLOGY RESULTS 08/28/2024 5:30 PM GLOBAL SUPPLY CHAIN DIRECTOR 08/31/2024 7:21 AM GLOBAL SUPPLY CHAIN DIRECTOR us Yvon Mack MD ECG ORDERABLES Edited Result - Final RADIOLOGY RESULTS documented in this encounter Visit Diagnoses Diagnosis Generalized anxiety disorder with panic attacks documented in this encounter Care Teams Manager Strategic Relationship Specialty Start Date End Date Clinic, [facility] [address] [place] [address] PCP - General 08/23/24 documented as of this encounter
--- OUTSIDE RECORDS SUMMARY | 2024-08-31 19:41 | XMS_ITS | Encounter Summary ---
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 TER CUT OFF OPERATOR documented in this encounter Plan of Treatment Not on file documented as of this encounter Visit Diagnoses Not on filedocumented in this encounter Care Teams Heating Unit Installer Relationship Specialty Start Date End Date Clinic, [facility] [address] [place] [address] PCP - General 08/23/24 documented as of this encounter
--- OUTSIDE RECORDS SUMMARY | 2024-08-31 19:41 | XMS_ITS | Encounter Summary ---
Author Organization [employer] [facility] Address [address] [place] [address] Care Team Providers Care Environmental Studies Faculty Member Name Role Phone Gladys Summers Primary Care Pr ovider Encounter Details Date Type Department Care Team (Late st Contact Info) Description 08/31/2024 Telephone [facility] Services - Behavioral Service Line [address] [place] [phone] Kiki Chairez Social History Tobacco Use Types Packs/Day Years [...] on file Legal Sex Female 4:22 AM HYDRAULIC SPECIALIST Gender Identity Not on file Sexual Orientation Not on file documented as of this encounter Miscellaneous Notes * Telephone Encounter - Kiki Chairez - 08/31/2024 4:54 PM CST This editorial writer HARPREET with callback contact. AULIC SPECIALIST documented in this encounter Plan of Treatment Not on file documented as of this encounter Visit Diagnoses Not on filedocumented in this encounter Care Teams Environmental Studies Faculty Member Relationship Specialty Start Date End Date Clinic, Gladys Gar [address] [place] [address] PCP - General 08/23/24 documented as of this encounter
--- OUTSIDE RECORDS SUMMARY | 2024-08-31 19:41 | XMS_ITS | Encounter Summary ---
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 [facility] [place] [address] PCP - General 08/23/24 documented as of this encounter
[2024-08-31 19:43] LABS: Slide Review Reflex No
[2024-08-31 19:52] LABS: Chloride* 101 mmol/L (96-114); Potassium* 3.4 mmol/L (3.6-5.1); Sodium* 136 mmol/L (135-149)
[2024-08-31 19:55] LABS: Anion Gap 11 mEq/L (7-15); Blood Urea Nitrogen* 11 mg/dL (5-24); Carbon Dioxide* 24 mmol/L (20-32); Creatinine* 0.6 mg/dL (0.5-1.5); Est. Creatinine Clearance* 124.85; Estimated Glomerular Filt Rate 121 ml/min; Glucose* 105 mg/dL (60-115)
[2024-08-31 19:56] LABS: Calcium* 9.7 mg/dL (8.4-10.6); Magnesium* 2.2 mg/dL (1.5-2.6)
[2024-08-31 20:03] LABS: NT Pro B Type NatriureticPept* < 20 pg/mL
[2024-08-31 20:10] LABS: D Dimer Quantitative* < 0.27 ug/ml (0.00-0.50)
== END 2024-08-31 20:38 | disposition home or self-care (01) ==
PROVIDERS: Emergency Provider Family Medicine; PCP Family Medicine
DX: R07.9 Chest pain, unspecified (principal); R06.00 Dyspnea, unspecified
CPT/HCPCS: 36415; 80048; 83735; 83880; 84484; 85025; 85379; 93005; 94761; 99284

== ENCOUNTER 2024-09-07 21:03 | Emergency (ER) | payer MEDICAID, SELFPAY ==
[2024-09-07 21:05] VITALS: BP 143/88; PULSE 73; RESP 18; TEMP 36.6; O2SAT 97; BMI 28.6
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
--- OUTSIDE RECORDS SUMMARY | 2024-09-07 21:59 | XMS_ITS | Encounter Summary ---
Author Organization [facility] Address [address] [place] [id number] Care Team Providers Care Usability Strategist Name Role Phone Margot Huang PA-C Primary Care Provider [phone] Reason for Visit * Reason Comments ANXIETY Encounter Details Date Type Department Care Team (Late st Contact Info) Description 08/26/2024 Nurse Triage [facility] Medicine [address] [facility] [place] [address] Margot Huang PA-C [address] [place], [place] [id number] ANXIETY Social History Tobacco Use Types Packs/Day [...] no relief Protocols used: Anxiety and Panic [id number] L APPLICATION DEVELOPER documented in this encounter Plan of Treatment Upcoming Encounters Date Type Department Care Team (Late st Contact Info) Description 09/08/2024 4:30 PM COBOL APPLICATION DEVELOPER [facility] [address] [place] [address] Rosa Maria Phillips MD [address] [place] [address] documented as of this encounter Visit Diagnoses Not on filedocumented in this encounter Care Teams Usability Strategist Relationship Specialty Start Date End Date Margot Huang PA-C [address] [place] [address] PCP - General Physician It Corporate Recruiter 11/13/16 documented as of this encounter
--- OUTSIDE RECORDS SUMMARY | 2024-09-07 21:59 | XMS_ITS | Clinical Summary ---
[facility] Address [address], [place] [address] Care Team Providers Care Coconut Boiler Name Role Phone Margot Huang PA-C Primary Care Provider [phone] Source Comments You are receiving this document as you are listed as the primary care provider,follow-up provider, or the patient has been referred to you for consultation.This is in compliance with the Medicare and[facility] EHR Incentive Program,which states Providers who transition their patient to another setting of careor provider of care or refers their patient to another provider of care shouldprovide summary care record for each transition of care or referral. [employer] Allergies Active Allergy Reactions Criticality Noted Date [...] Encounters Date Type Department Care Team Description 09/07/2024 1:41 PM DIRECTOR FINANCIAL SERVICES [facility] Echocardiogram [address] [place] [address] Tachycardia 09/07/2024 10:40 AM DIRECTOR FINANCIAL SERVICES Office Visit [facility] [address] [place] [address] Marika Gunter PA-C Tachycardia 09/04/2024 6:40 PM DIRECTOR FINANCIAL SERVICES Office Visit [facility] [address] [facility] [address] [place] [address] Chely Leavitt PA-C Tachycardia; ST segment changes on electrocardiogram 08/26/2024 3:30 PM DIRECTOR FINANCIAL SERVICES Lab Visit [facility] [address] [place] [place] [address] Anxiety (HRC); Palpitations 08/26/2024 3:00 PM DIRECTOR FINANCIAL SERVICES Office Visit [facility] [address] [place] [address] Rosa Maria Phillips MD Anxiety (HRC) (Primary Dx); Palpitations 08/26/2024 1:00 PM DIRECTOR FINANCIAL SERVICES E-Visit [address] [place] [address] Rosa Maria Phillips MD Chief Comp: Follow-up, NOS 08/26/2024 Nurse Triage [address] [address] Margot Huang PA-C ANXIETY 08/24/2024 4:00 PM DIRECTOR FINANCIAL SERVICES Telemedicine [facility] [address] [place] [address] Swati Murray, GRAPHIC DESIGN MANAGER, AGRICULTURAL ECONOMICS TEACHER ROSE MARY (generalized anxiety disorder) (HRC) (Primary Dx) 08/24/2024 E-Visit [facility] [address] [place] [address] Mychart, Generic Provider 08/19/2024 2:30 PM CDT Office Visit [address] [place] [address] Rosa Maria Phillips MD Anxiety (HRC) (Primary Dx); Intractable migraine with aura without status migrainosus 08/17/2024 3:30 PM CDT E-Visit [address] [phone] Jim Esparza PA-C Chief Comp: QUESTIONS, GENERAL 08/13/2024 9:00 AM CDT Office Visit [address] [phone] Jim Esparza PA-C Anxiety (HRC) (Primary Dx); Radiculopathy of lumbar region; Sacroiliitis (HRC) 08/11/2024 1:00 PM CDT Ancillary Procedure [facility] [address] [place] [address] Antonia Ya PA-C Right calf pain 08/11/2024 12:40 PM CDT Office Visit [facility] [address] [facility] [address] [place] [address] Antonia Ya PA-C Low back pain, unspecified back pain laterality, unspecified chronicity, unspecified whether sciatica present; Right calf pain 08/06/2024 9:40 AM CDT Office Visit [facility] [address] [facility] [place] [address] Robert Valdez, [facility] Generalized anxiety disorder with panic attacks (HRC) (Primary Dx); History of depression 07/28/2024 4:30 PM CDT E-Visit [facility] [address] [address] Steve Stoll PA-C Chief Comp: Follow-up, NOS 07/23/2024 12:20 PM CDT Ancillary Procedure [facility] [address] [facility] [address] [place] [phone] Steve Stoll PA-C Right foot pain 07/23/2024 7:30 AM CDT Telemedicine [facility] [address] [place] [address] Steve Stoll PA-C Right foot pain (Primary Dx); Cellulitis of right lower extremity 07/15/2024 Nurse Triage [facility] [address] [place] [address] Leobardo Lloyd CELLULITIS from Last 3 Months Immunizations Name [...] Sign Reading Time Taken Comments Blood Pressure 153/92 09/07/2024 10:20 AM DIRECTOR FINANCIAL SERVICES Pulse 106 09/07/2024 10:20 AM DIRECTOR FINANCIAL SERVICES Temperature 36.9 C (98.5 F) 09/07/2024 10:20 AM DIRECTOR FINANCIAL SERVICES Respiratory Rate 16 09/07/2024 10:20 AM DIRECTOR FINANCIAL SERVICES Oxygen Saturation 99% 09/07/2024 10:20 AM DIRECTOR FINANCIAL SERVICES Inhaled Oxygen Concentration - - Weight 80.3 kg (177 lb) 08/26/2024 3:02 PM DIRECTOR FINANCIAL SERVICES Height 167.6 cm (5' 6) 08/13/2024 8:55 AM CDT Body Mass Index 28.57 08/13/2024 8:55 AM CDT Plan of Treatment Upcoming Encounters Date Type Department Care Team (Late st Contact Info) Description 09/08/2024 4:30 PM DIRECTOR FINANCIAL SERVICES Telemedicine [facility] [address] [place] [address] Rosa Maria Phillips MD [address] [place], [place] [phone] Health Maintenance Due Date Last Done Comments [...] Procedure Name Priority Date/Time Associated Diagnosis Comments ECHOCARDIOGRAM STAT 09/07/2024 1:44 PM DIRECTOR FINANCIAL SERVICES Tachycardia ECG 12 LEAD OUTPATIENT STAT 11/18/202 4 10:26 AM DIRECTOR FINANCIAL SERVICES Tachycardia ECG 12 LEAD OUTPATIENT STAT 4 6:20 PM DIRECTOR FINANCIAL SERVICES Tachycardia COMPLETE BLOOD COUNT-W/DIFF Routine 08/26/2024 3:30 PM DIRECTOR FINANCIAL SERVICES Anxiety (HRC) Palpitations TSH, SENSITIVE Routine 08/26/2024 3:30 PM DIRECTOR FINANCIAL SERVICES Anxiety (HRC) Palpitations BASIC METABOLIC PANEL Routine 08/26/2024 3:30 PM DIRECTOR FINANCIAL SERVICES Anxiety (HRC) Palpitations CBC AND DIFFERENTIAL PANEL Routine 08/26/2024 3:30 PM DIRECTOR FINANCIAL SERVICES Anxiety (HRC) Palpitations US VENOUS RIGHT LOWER [...] AG/AB 4TH GEN Routine 10/02/2017 1:40 PM DIRECTOR FINANCIAL SERVICES Encounter for supervision of normal first in first trimester PAP TEST, ROUTINE Routine 08/21/2017 11: 14 AM CDT Screening for malignant neoplasm of cervix from Last 3 Months or Most Recently Relevant to Health Maintenance Results * Echocardiogram (09/07/2024 1:44 PM DIRECTOR FINANCIAL SERVICES) 09/07/2024 1:44 PM DIRECTOR FINANCIAL SERVICES Narrative PN ECHO - 09/07/2024 3:05 PM DIRECTOR FINANCIAL SERVICES Procedure type: ECHOCARDIOGRAM Procedure 09/07/2024 1:44 PM date/time: [facility] SUMMARY: 1. Normal left ventricular size and global and regional function. Ejection fraction is visually estimated at 60%. 2. Normal right ventricle size and normal global function. 3. No hemodynamic significant valve abnormalities noted. No recent prior study is available for comparison. FINDINGS LEFT VENTRICLE: Normal left ventricular size and global and regional function. Normal left ventricular wall thickness. Left ventricular ejection fraction is visually estimated at 60%. (within normal limits) Normal left ventricular filling for age. RIGHT VENTRICLE: Normal right ventricle size and normal global function. Normal tricuspid annular plane systolic excursion. (TAPSE) LEFT ATRIUM: Normal left atrial size. Visually left atrium appears normal. RIGHT ATRIUM: Normal right atrium. MITRAL VALVE: Normal mitral valve structure and function. Trace mitral regurgitation. TRICUSPID VALVE: Normal tricuspid valve structure and function. Trace to mild tricuspid insufficiency noted. Pulmonary artery pressures cannot be estimated due to the absence of adequate TR jet. AORTIC VALVE: Normal aortic valve structure and function. Aortic valve is tricuspid. AORTA/GREAT VESSELS: The visualized segments of the thoracic aorta are normal in diameter. The inferior vena cava is normal suggesting normal RA pressure. PULMONARY VALVE: Normal pulmonic valve structure and function. Trace pulmonic insufficiency. PERICARDIUM & PLEURA: No pericardial effusion is present. LVOT LVOT diameter: 2 cm LVOT Area: 3.1 cm^2 AORTA Sinus of Valsalva: 3.02 cm Sinus of Valsalva Index: 1.8 cm/m Ascending Ao (prox): 2.6 cm Asc Ao (prox) Index: 1.55 cm/m MITRAL VALVE Peak E-wave: 73.7 cm/s Peak A-wave: 82.7 cm/s E/A ratio: 0.89 LEFT ATRIUM LA dimension (2D): 2.4 cm LA Area (A4C): 12.5 cm^2 LA Volume (BP): 30.7 ml LA Volume (BP) Index: 16.2 ml/m^2 LA Volume (A2C): 31.1 ml LA Volume (A4C): 29.4 ml LA Volume (A2C) Index: 16.4 ml/m^2 LA Volume (A4C) Index: 15.5 ml/m^2 LEFT VENTRICLE LVIDd (2D): 3.6 cm LVIDs (2D): 2.4 cm Septum diastolic (2D): 0.7 cm Post wall diastolic (2D): 0.8 cm Rel wall thickness: 0.4 LV mass (ASE): 71.5 g LV mass (ASE) Index: 37.7 g/m^2 FS: 33 % LV DIASTOLIC FUNCTION E' septal velocity: 10.9 cm/s E' lateral velocity: 12 cm/s E/E' Septal: 6.8 E/E' Lateral: 6.1 E/E' Average: 6.5 LEFT VENTRICLE: M-MODE LVEDV (Teich): 55.2 ml LVESV (Teich): 20.8 ml EF (Teichholz): 62 % EF Estimated: 60 % RIGHT VENTRICLE TAPSE: 2 cm RV S' velocity: 13.2 cm/s IVC IVC inspiration: 0.5 cm IVC expiration: 1.4 cm INDICATIONS Tachycardia. PROCEDURE 2-D Quality: Adequate quality 2-dimensional echo was performed and interpreted. Doppler Quality: Adequate quality pulse, continuous wave, and color Doppler was performed and interpreted. Contrast medium: Not Applicable Height: 66 in. Weight: 177 lb. Blood pressure: 153 / 92 mmHg BSA: 1.9 m^2 BMI: 28.6 kg/m^2 Rhythm: Sinus Procedure notes: *Patient educated on test, all questions answered by: TED . DEMOGRAPHICS Patient name: DIANN TOMPKINS Date of : 1990 Age: 34 year(s) Gender: Female Procedure Staff Interpreting DESTINY CONTRERAS MD Carpet Yarn Winder Operator: Elevator Runner: PETAR JEAN Ordering Provider: JESSICA Dee Primary Provider: JESSICA Dee Electronically signed by DESTINY CONTRERAS MD (Interpreting Carpet Yarn Winder Operator) on at 3:04 PM Procedure Note Destiny Contreras MD - 09/07/2024 Procedure type: ECHOCARDIOGRAM Procedure 09/07/2024 1:44 PM date/time: [facility] SUMMARY: 1. Normal left ventricular size and global and regional function. Ejection fraction is visually estimated at 60%. 2. Normal right ventricle size and normal global function. 3. No hemodynamic significant valve abnormalities noted. No recent prior study is available for comparison. FINDINGS LEFT VENTRICLE: Normal left ventricular size and global and regional function. Normal left ventricular wall thickness. Left ventricular ejection fraction is visually estimated at 60%. (within normal limits) Normal left ventricular filling for age. RIGHT VENTRICLE: Normal right ventricle size and normal global function. Normal tricuspid annular plane systolic excursion. (TAPSE) LEFT ATRIUM: Normal left atrial size. Visually left atrium appears normal. RIGHT ATRIUM: Normal right atrium. MITRAL VALVE: Normal mitral valve structure and function. Trace mitral regurgitation. TRICUSPID VALVE: Normal tricuspid valve structure and function. Trace to mild tricuspid insufficiency noted. Pulmonary artery pressures cannot be estimated due to the absence of adequate TR jet. AORTIC VALVE: Normal aortic valve structure and function. Aortic valve is tricuspid. AORTA/GREAT VESSELS: The visualized segments of the thoracic aorta are normal in diameter. The inferior vena cava is normal suggesting normal RA pressure. PULMONARY VALVE: Normal pulmonic valve structure and function. Trace pulmonic insufficiency. PERICARDIUM & PLEURA: No pericardial effusion is present. LVOT LVOT diameter: 2 cm LVOT Area: 3.1 cm^2 AORTA Sinus of Valsalva: 3.02 cm Sinus of Valsalva Index: 1.8 cm/m Ascending Ao (prox): 2.6 cm Asc Ao (prox) Index: 1.55 cm/m MITRAL VALVE Peak E-wave: 73.7 cm/s Peak A-wave: 82.7 cm/s E/A ratio: 0.89 LEFT ATRIUM LA dimension (2D): 2.4 cm LA Area (A4C): 12.5 cm^2 LA Volume (BP): 30.7 ml LA Volume (BP) Index: 16.2 ml/m^2 LA Volume (A2C): 31.1 ml LA Volume (A4C): 29.4 ml LA Volume (A2C) Index: 16.4 ml/m^2 LA Volume (A4C) Index: 15.5 ml/m^2 LEFT VENTRICLE LVIDd (2D): 3.6 cm LVIDs (2D): 2.4 cm Septum diastolic (2D): 0.7 cm Post wall diastolic (2D): 0.8 cm Rel wall thickness: 0.4 LV mass (ASE): 71.5 g LV mass (ASE) Index: 37.7 g/m^2 FS: 33 % LV DIASTOLIC FUNCTION E' septal velocity: 10.9 cm/s E' lateral velocity: 12 cm/s E/E' Septal: 6.8 E/E' Lateral: 6.1 E/E' Average: 6.5 LEFT VENTRICLE: M-MODE LVEDV (Teich): 55.2 ml LVESV (Teich): 20.8 ml EF (Teichholz): 62 % EF Estimated: 60 % RIGHT VENTRICLE TAPSE: 2 cm RV S' velocity: 13.2 cm/s IVC IVC inspiration: 0.5 cm IVC expiration: 1.4 cm INDICATIONS Tachycardia. PROCEDURE 2-D Quality: Adequate quality 2-dimensional echo was performed and interpreted. Doppler Quality: Adequate quality pulse, continuous wave, and color Doppler was performed and interpreted. Contrast medium: Not Applicable Height: 66 in. Weight: 177 lb. Blood pressure: 153 / 92 mmHg BSA: 1.9 m^2 BMI: 28.6 kg/m^2 Rhythm: Sinus Procedure notes: *Patient educated on test, all questions answered by: TED . DEMOGRAPHICS Patient name: DIANN TOMPKINS Date of : 1990 Age: 34 year(s) Gender: Female Procedure Staff Interpreting DESTINY CONTRERAS MD Carpet Yarn Winder Operator: Elevator Runner: TED [facility] Ordering Provider: JESSICA Dee Primary Provider: JESSICA Dee Electronically signed by DESTINY CONTRERAS MD (Interpreting Carpet Yarn Winder Operator) on at 3:04 PM Marika Gunter PA-C ET ECHO ORDERABLE S PN ECHO * ECG 12-LEAD ROUTINE (Non Lab to perform-Today)-STAT (09/07/2024 10:26 AM DIRECTOR FINANCIAL SERVICES) Only the most recent of2 resultswithin the time period is included. Ventricular Rate 105 BPM MUSE GHP Atrial Rate 105 BPM MUSE GHP P-R Interval 130 ms MUSE GHP QRS Duration 78 ms MUSE GHP QT 340 ms MUSE GHP QTc 449 ms MUSE GHP P Amber 71 degrees MUSE GHP R Amber 87 degrees MUSE GHP T Amber 2 degrees MUSE GHP 09/07/2024 10:2 6 AM DIRECTOR FINANCIAL SERVICES Narrative MUSE GHP - 09/07/2024 3:27 PM DIRECTOR FINANCIAL SERVICES Mild Sinus tachycardia Possible Left atrial enlargement Otherwise normal ECG When compared with ECG of 04-SEP-2024 18:20, Nonspecific ST abnormality resolved QT Normalized Confirmed by Ramu Guzman ([id number]) on 09/07/2024 3:27:46 PM Procedure Note Ramu Guzman MD - 09/07/2024 Mild Sinus tachycardia Possible Left atrial enlargement Otherwise normal ECG When compared with ECG of 04-SEP-2024 18:20, Nonspecific ST abnormality resolved QT Normalized Confirmed by Ramu Guzman ([id number]) on 09/07/2024 3:27:46 PM Marika Gunter PA-C PN ECG ORDERABLES Performing Organization Address City/State/[facility] Co de Phone Number MUSE [facility] [address] [place] [address] * Complete Blood Count-W/Diff (08/26/2024 3:30 PM DIRECTOR FINANCIAL SERVICES) WBC 6.5 3.5 - 10.5 x10(9)/L 08/26/2024 3:36 PM DIRECTOR FINANCIAL SERVICES [facility] RBC 4.95 3.90 - 5.03 x10(12)/L 08/26/2024 3:36 PM DIRECTOR FINANCIAL SERVICES [facility] Hemoglobin 14.8 12.0 - 15.5 g/dL 08/26/2024 3:36 PM DIRECTOR FINANCIAL SERVICES [facility] HCT 43.5 34.9 - 44.5 % 08/26/2024 3:36 PM DIRECTOR FINANCIAL SERVICES [facility] MCV 87.9 80.0 - 100.0 fL 08/26/2024 3:36 PM DIRECTOR FINANCIAL SERVICES [facility] MCH 29.9 27.6 - 33.3 pg 08/26/2024 3:36 PM DIRECTOR FINANCIAL SERVICES [facility] MCHC 34.0 31.5 - 35.2 g/dL 08/26/2024 3:36 PM DIRECTOR FINANCIAL SERVICES [facility] RDW 13.1 11.9 - 15.5 % 08/26/2024 3:36 PM DIRECTOR FINANCIAL SERVICES [facility] Platelets 264 150 - 450 x10(9)/L 08/26/2024 3:36 PM DIRECTOR FINANCIAL SERVICES [facility] Neutrophil Absolute 4.5 1.7 - 7.0 10(9)/L 08/26/2024 3:36 PM DIRECTOR FINANCIAL SERVICES [facility] Lymphocyte Absolute 1.4 1.0 - 4.8 10(9)/L 08/26/2024 3:36 PM DIRECTOR FINANCIAL SERVICES [facility] Monocyte Absolute 0.5 0.2 - 0.9 10(9)/L 08/26/2024 3:36 PM DIRECTOR FINANCIAL SERVICES [facility] Eosinophil Absolute 0.0 0.0 - 0.5 10(9)/L 08/26/2024 3:36 PM DIRECTOR FINANCIAL SERVICES [facility] Basophil Absolute 0.0 0.0 - 0.3 10(9)/L 08/26/2024 3:36 PM DIRECTOR FINANCIAL SERVICES [facility] Blood Venipuncture / Unknown 08/26/2024 3:30 PM DIRECTOR FINANCIAL SERVICES 08/26/2024 3:30 PM DIRECTOR FINANCIAL SERVICES Rosa Maria Phillips MD LAB_1 [facility] [address] [place] [address] * TSH (08/26/2024 3:30 PM DIRECTOR FINANCIAL SERVICES) Pathologist [facility] TSH, Sensitive 1.10 0.30 - 4.50 uIU/mL 08/26/2024 9:42 PM DIRECTOR FINANCIAL SERVICES [facility] Blood Venipuncture / Unknown 08/26/2024 3:30 PM DIRECTOR FINANCIAL SERVICES 08/26/2024 3:30 PM DIRECTOR FINANCIAL SERVICES Rosa Maria Phillips MD LAB_1 [facility] [address] * (ABNORMAL) Basic Metabolic Panel (08/26/2024 3:30 PM DIRECTOR FINANCIAL SERVICES) Pathologist [facility] Sodium 140 136 - 145 mmol/L 08/27/2024 10:07 AM DIRECTOR FINANCIAL SERVICES [facility] Potassium 3.6 3.5 - 5.1 mmol/L 08/27/2024 10:07 AM [facility] Chloride 110(H) 98 - 109 mmol/L 08/27/2024 10:07 AM [facility] CO2 21 20 - 29 mmol/L 08/27/2024 10:07 AM [facility] Anion Gap 9 6 - 16 mmol/L 08/27/2024 10:07 AM [facility] Calcium 9.6 8.4 - 10.4 mg/dL 08/27/2024 10:07 AM [facility] BUN 9 7 - 26 mg/dL 08/27/2024 10:07 AM [facility] Creatinine 0.72 0.55 - 1.02 mg/dL 08/27/2024 10:07 AM [facility] Glucose 102(H) 70 - 100 mg/dL 08/27/2024 10:07 AM [facility] Comment:The given reference range is for the fasting state. Non-fasting reference range for glucose is 70 - 180 mg/dL. GFR, Estimated >60 >60 mL/min/1.7 3m2 08/27/2024 10:07 AM [facility] Hours Fasting 0.0 8 - 12 Hours 08/27/2024 10:07 AM [facility] Blood Venipuncture / Unknown 08/26/2024 3:30 PM DIRECTOR FINANCIAL SERVICES 08/26/2024 3:30 PM DIRECTOR FINANCIAL SERVICES Rosa Maria Phillips MD LAB_1 [facility] [address] [place] [address] * US Venous Right Lower Extrem Doppler (08/11/2024 12:03 PM CDT) Anatomical Region Laterality Modality Vascular, Leg Ultrasound 08/11/2024 11:3 5 AM CDT Impressions 08/11/2024 12:05 PM CDT No evidence of deep venous thrombosis. Small calf vein thrombosis cannot be completely excluded by this technique. Narrative 08/11/2024 12:05 PM CDT COMPARISON: None. CLINICAL HISTORY: right calf pain [...] excluded by this technique. Antonia Ya PA-C [facility] US * (ABNORMAL) Urine Culture - Collect in Lab (08/11/2024 10:18 AM CDT) Urine Culture Growth(A) 08/12/2024 10:20 PM CDT [facility] Urine Culture <10,000 CFU/mL Mixed Bacterial Growth 08/12/2024 10:20 PM CDT [facility] Comment: Mixed Bacterial Growth indicates the specimen is likely contaminated at collection with urogenital and/or fecal satinder. The presence of organisms at <10,000 cfu/ml in culture, UTI unlikely. Urine URINE SPECIMEN COLLECTION, CLEAN CATCH / Unknown Non-blood Collection / Unknown 08/11/2024 10:18 AM CDT 08/11/2024 10:35 AM CDT Antonia Ya PA-C LAB_[address] [address], [facility] * (ABNORMAL) Urinalysis Routine, Micro/Culture if Pos: Clean Catch (08/11/2024 10:18 AM CDT) Urine Culture Comment Urinalysis results do not meet criteria for urine culture reflex. 08/11/2024 10:54 AM CDT [facility] Color Yellow 08/11/2024 10:54 AM [facility] Clarity Clear Clear 08/11/2024 10:54 AM [facility] Specific [place] >=1.030(A) 1.005 - 1.030 08/11/2024 10:54 AM T [facility] pH 5.5 5.0 - 8.0 08/11/2024 10:54 AM [facility] Protein Negative Neg/Trace 08/11/2024 10:54 AM T [facility] Glucose Negative Negative 08/11/2024 10:54 AM T [facility] Ketones 15(A) Negative 08/11/2024 10:54 AM [facility] Urobilinogen 0.2 <2.0 08/11/2024 10:54 AM [facility] Bilirubin Negative Negative 08/11/2024 10:54 AM [facility] Blood Negative Neg/Trace 08/11/2024 10:54 AM [facility] Nitrite Negative Negative 08/11/2024 10:54 AM T [facility] Leukocyte Esterase Trace(A) Negative 08/11/2024 10:54 AM T [facility] Source Clean Catch 08/11/2024 10:54 AM [facility] Urine URINE SPECIMEN COLLECTION, CLEAN CATCH / Unknown Non-blood Collection / Unknown 08/11/2024 10:18 AM CDT 08/11/2024 10:35 AM CDT Laurent Grossman [facility] LAB_1 Performing Organization Address [facility]/State/[facility] Co de Phone Number [facility] [address] [place] [address] * (ABNORMAL) Urine Microscopic Evaluation: Clean Catch (08/11/2024 10:18 AM CDT) Red Blood Cells 0-3 0 - 3 /HPF 10:54 AM T [facility] White Blood Cells 6-9(A) 0 - 5 /HPF 08/11/2024 10:54 AM T [facility] Bacteria Moderate(A ) None Seen /HPF 08/11/2024 10:54 AM CDT [facility] Squamous Epithelial Cells Moderate(A ) None Seen, Occasional , Few /HPF 08/11/2024 10:54 AM CDT [facility] Mucus Present(A) None Seen /HPF 08/11/2024 10:54 AM CDT [facility] Urine URINE SPECIMEN COLLECTION, CLEAN CATCH / Unknown Non-blood Collection / Unknown 08/11/2024 10:18 AM CDT 08/11/2024 10:35 AM CDT Laurent [facility]IU LAB_1 [facility] [address] [place] [address], [facility] * XR Foot Rt 3+ Views (07/23/2024 12:30 PM CDT) Anatomical Region Laterality Modality Lower Extremity, Foot Digital Ra diography 07/23/2024 12:2 2 PM CDT Impressions 07/23/2024 2:27 PM CDT COMPARISON: None. FINDINGS: Bony structures of the right foot are normal. Joint spaces appear within normal limits. There is no dislocation or significant degenerative change. Narrative Procedure Note Ritesh Nogueira MD - 07/23/2024 IMPRESSION COMPARISON: None. FINDINGS: Bony structures of the right foot are normal. Joint spacesappear within normal limits. There is no dislocation or significantdegenerative change. Steve Stoll PA-C [facility] * HIV 1/2 Ag/Ab 4th Generation (10/02/2017 1:40 PM DIRECTOR FINANCIAL SERVICES) HIV 1/2 AG/AB 4thGEN Negative (Non Reactive) [facility] Comment:HIV-1 p24 Ag and HIV -1/HIV-2 Ab not detected. 10/02/2017 1:40 PM DIRECTOR FINANCIAL SERVICES 10/02/2017 1:47 PM DIRECTOR FINANCIAL SERVICES Narrative [facility] - 10/02/2017 7:15 PM DIRECTOR FINANCIAL SERVICES Performed at [facility], [address] [place] [address] Meg Gracia APRN, CNM LAB_1 Performing Organization Address [facility] Co de Phone Number [facility] [phone] * Pap Test, Routine (08/21/2017 11:14 AM CDT) Cytology, Pap (NOTE) Food Service Cashier Cytology Report Patient Name: TURNER TIDWELL Taken: 08/21/2017 Received: 08/21/2017 Reported: 09/02/2017 Physician(s): GENARO JAMIL Source of Specimen Pap Test, Routine Cervical/Endocervi cristina: Specimen Adequacy Satisfactory for evaluation. Endocervical component present. Final Cytologic Interpretation/Res ult NEGATIVE FOR INTRAEPITHELIAL LESION OR MALIGNANCY (NILM) *Electronically Signed Out By Savanah SMITH(ASCP)* SARAH Pack (ASCP) Savanah SMITH(ASCP) Pap Smear History Date of Last Menstrual Period: No LMP recorded Microscopic Description Microscopic examination is performed. [facility] Department of Pathology [address] [place] [address] [facility] 08/21/2017 11:1 4 AM CDT 08/21/2017 6:30 PM CDT Genaro Jamil MD LAB_1 Performing Organization Address [facility] Co de Phone Number [facility] [employer] [phone] from Last 3 Months or Most Recently Relevant to Health Maintenance Advance Directives * Full Code (Latest Code Status on File) Date Activated Date Inactivated Comments 11/27/2017 8:06 AM 11/27/2017 2:06 PM Care Teams Coconut Boiler Relationship Specialty Start Date End Date Margot Huang PA-C [address] [place] [address] PCP - General Physician Order Fulfillment Specialist 11/13/16
--- OUTSIDE RECORDS SUMMARY | 2024-09-07 21:59 | XMS_ITS | Encounter Summary ---
Author Organization [employer] Address [address], [place] [address] Care Team Providers Care Architectural Practice Manager Name Role Phone Margot Huang PA-C Primary Care Provider [phone] Reason for Visit * Procedure/Equipment (Routine) - Incomplete Specialty Diagnoses / Procedures Referred By Sukhi t Referred To Contact Diagnoses Right calf pain Procedures US Venous Right Lower Extrem Doppler Antonia Ya PA-C [address] [place] [address] Referral ID Status Reason Start Date Expiration Date V isits Requested Visits Authorized [id number] Incomplete 08/11/2024 11/10/2025 1 1 Encounter Details Date Type Department Care Team (Late st Contact Info) Description 08/11/2024 1:00 PM CDT Ancillary Procedure [facility] [address] [place] [phone] Antonia Ya PA-C [address] [place] [address] Right calf pain Social History [...] st Contact Info) Description 09/08/2024 4:30 PM COMMONWEALTH ATTORNEY [facility] [address] [place] [address] Rosa Maria Phillips MD [address] [place] [address] documented as of this encounter Procedures Procedure [...] pain documented in this encounter Care Teams Architectural Practice Manager Relationship Specialty Start Date End Date Margot Huang PA-C [address] [place] [address] PCP - General Physician Sexual Abuse Counsellor 11/13/16 documented as of this encounter
--- OUTSIDE RECORDS SUMMARY | 2024-09-07 21:59 | XMS_ITS | Encounter Summary ---
Author Organization [employer] Address [address] [place] [id number] Care Team Providers Care Glass Or Mirror Inspector Name Role Phone Margot Huang PA-C Primary Care Provider [phone] Reason for Visit * Reason Comments CONSULT Encounter Details Date Type Department Care Team (Late st Contact Info) Description 08/24/2024 4:00 PM TELETYPE TECHNICIAN Telemedicine [facility] [address] [place] [address] [phone] Swati Murray MSW, NETWORK TECHNICIAN [address] [place] [id number] ROSE MARY (generalized anxiety disorder) (HRC) [...] encounter Progress Notes * Swati Murray MSW, NETWORK TECHNICIAN - 08/24/2024 4:00 PM CST BEHAVIORAL HEALTH CONSULTATION - PROGRESS NOTE DATE: 08/24/2024 PATIENT: Kacey Flora PROVIDER: PRATIBHA Vargas, [facility] REFERRING PROVIDER: Rosa Maria Phillips MD [...] patient the role of a Behavioral Health Meter Setter (BHC) including collaboration with the Primary Care [...] 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 Is struggling with not [...] DIAGNOSIS 1. ROSE MARY (generalized anxiety disorder) ([facility]) Rule out Health Anxiety Disorder CONSULTATION [...] it is recommended that the patient [facility]with [facility] as needed. Review provided handouts/resources and practice skills discussed in session. Utilize consultation services for psychoeducation, support, brief assessment, and skill developmentto support active therapeutic needs. Patient is going to try to reestablish care with previous mental health provider, is also willing to use [facility] if needed. Follow up with PCP for scheduled visit. Electronically signed by: PRATIBHA Vargas LICSW Behavioral Health Meter Setter 08/24/2024, 6:19 PM TYPE TECHNICIAN documented in this encounter Plan of Treatment Upcoming Encounters Date Type Department Care Team (Late st Contact Info) Description 09/08/2024 4:30 PM TELETYPE TECHNICIAN [facility] [address] [place] [address] Rosa Maria Phillips MD [address] [place] [address] documented as of this encounter Visit Diagnoses Diagnosis ROSE MARY (generalized anxiety disorder) (HRC)- Primary Generalized anxiety disorder documented in this encounter Care Teams Glass Or Mirror Inspector Relationship Specialty Start Date End Date Margot Huang PA-C [address] [place] [address] PCP - General Physician Social Science Teacher 11/13/16 documented as of this encounter
--- OUTSIDE RECORDS SUMMARY | 2024-09-07 21:59 | XMS_ITS | Encounter Summary ---
Author Organization [employer] Address [address], [place] [address] Care Team Providers Care Loading Unit Operator Crimping Name Role Phone Margot Huang PA-C Primary Care Provider [phone] Reason for Visit * Reason Comments TACHYCARDIA Exertional Encounter Details Date Type Department Care Team (Latest Contact Info) Description 09/04/2024 6:40 PM DRAW STRING KNOTTER Office Visit [place] [address] [facility] [id number] [place] [phone] Chely Leavitt, PADMINI [address] [place] [address] Tachycardia; ST segment changes on [...] Comments Blood Pressure 131/86 09/04/2024 5:58 PM DRAW STRING KNOTTER Pulse 115 09/04/2024 5:58 PM DRAW STRING KNOTTER Temperature 37.2 C (98.9 F) 09/04/2024 5:58 PM DRAW STRING KNOTTER Respiratory Rate 18 09/04/2024 5:58 PM DRAW STRING KNOTTER Oxygen Saturation 99% 09/04/2024 5:58 PM DRAW STRING KNOTTER Inhaled Oxygen Concentration - - Weight - [...] QT 464 ms QTc 627 ms R [place] 89 degrees T [place] 59 degrees Tachycardic. Inverted T waves in [...] her previous on file. We also contacted [facility] and they faxed us a copy of [...] cardiac rule out. Patient will go to [facility] ED. I discussed with an EN there prior to transfer. I do feel she is safe for transfer via private vehicle. She is here with her significant other. Patient verbalized understanding and agreement with the plan. Impression: 1. Tachycardia 2. ST segment changes on electrocardiogram Chely Leavitt PA-C STRING KNOTTER documented in this encounter Nursing Notes * Alhaji Oliva LPN - 09/04/2024 6:40 PM CST Patient is here today due to elevated heart rate with exertion that has been going on for 1 weeks. Pt states she is going through some medication changes and having difficulty making sure to be eating and drinking Associated symptoms include headache, dizziness, weakness, and dry mouth. STRING KNOTTER documented in this encounter Plan of Treatment Upcoming Encounters Date Type Department Care Team (Late st Contact Info) Description 09/08/2024 4:30 PM DRAW STRING KNOTTER Telemedicine [facility] [address] [place] [address] Rosa Maria Phillips MD [address] [place] [address] documented as of this encounter Procedures Procedure Name Priority Date/Time Associated Diagnosis Comments ECG 12 LEAD OUTPATIENT STAT 09/04/2024 6:20 PM DRAW STRING KNOTTER Tachycardia documented in this encounter Results * ECG 12-LEAD ROUTINE (Non Lab to perform-Today)-STAT (09/04/2024 6:20 PM DRAW STRING KNOTTER) Ventricular Rate 110 BPM [facility]USE [facility] Atrial Rate 110 BPM [facility]USE [facility] QRS Duration 90 ms MUSE GHP QT 464 ms MUSE GHP QTc 627 ms MUSE GHP R [place] 89 degrees MUSE GHP T [place] 59 degrees MUSE GHP 09/04/2024 6:20 PM DRAW STRING KNOTTER Narrative MUSE GHP - 09/04/2024 9:17 PM DRAW STRING KNOTTER Sinus rhythm T wave abnormality, consider anterolateral ischemia Prolonged QT Abnormal ECG When compared with ECG of 02-OCT-2017 14:00, Inverted T waves have replaced nonspecific T wave abnormality in Inferior leads T wave inversion now evident in Anterolateral leads QT has lengthened Confirmed by Mara Ménedz ([id number]) on 09/04/2024 9:17:36 PM Procedure Note Mara Méndez MD - 09/04/2024 Sinus rhythm T wave abnormality, consider anterolateral ischemia Prolonged QT Abnormal ECG When compared with ECG of 02-OCT-2017 14:00, Inverted T waves have replaced nonspecific T wave abnormality in Inferiorleads T wave inversion now evident in Anterolateral leads QT has lengthened Confirmed by Mara Méndez ([id number]) on 09/04/2024 9:17:36 PM Chely Leavitt PA-C PN ECG ORDERABLES [facility] [address] [place] [address] documented in this encounter Visit Diagnoses Diagnosis Tachycardia Tachycardia, unspecified ST segment changes on electrocardiogram documented in this encounter Care Teams Loading Unit Operator Crimping Relationship Specialty Start Date End Date Margot Huang PA-C [address] [place] [address] PCP - General Physician Adobe Block Maker 11/13/16 documented as of this encounter
--- OUTSIDE RECORDS SUMMARY | 2024-09-07 21:59 | XMS_ITS | Encounter Summary ---
Author Organization [facility] Address [address] [place] [address] Care Team Providers Care Harvest Worker Name Role Phone Margot Huang PA-C Primary Care Provider [phone] Encounter Details Date Type Department Care Team (Late Contact Info) Description 08/24/2024 E-Visit [facility] [address] [place] [address] Mychart, [place] [address] Social History Tobacco Use Types Packs/Day Years [...] (Late Contact Info) Description 09/08/2024 4:30 PM FILLER AND TRIMMER Telemedicine [facility] [address] [place], [place] [address] Rosa Maria Phillips MD [address] [place], [place] [address] documented as of this encounter Visit Diagnoses Not on filedocumented in this encounter Care Teams Harvest Worker Relationship Specialty Start Date End Date Margot Huang PA-C [address] [place] [address] PCP - General Physician Technical Account Executive 11/13/16 documented as of this encounter
--- OUTSIDE RECORDS SUMMARY | 2024-09-07 21:59 | XMS_ITS | Encounter Summary ---
Author Organization [employer] Address [address] [place] [address] Care Team Providers Care Ax Survey Worker Name Role Phone Margot Huang PA-C Primary Care Provider [phone] Reason for Visit * Reason Comments ANXIETY Wk 3 lexaproProgress ively worse. At[facility] only helping for 2 hr.sHx health anxiety DIZZINESS All the time - BREATHING PROBLEM fast Encounter Details Date Type Department Care Team (Late st Contact Info) Description 08/26/2024 3:00 PM JANITOR CUSTODIAN [facility] [address] [place], [place] [phone] Rosa Maria Phillips MD [address] [place], [place] [id number] Anxiety (HRC) (Primary Dx); Palpitations Social History [...] Comments Blood Pressure 128/84 08/26/2024 3:02 PM JANITOR CUSTODIAN Pulse 109 08/26/2024 3:02 PM JANITOR CUSTODIAN Temperature - - Respiratory Rate - - Oxygen Saturation - - Inhaled Oxygen Concentration - - Weight 80.3 kg (177 lb) 08/26/2024 3:02 PM JANITOR CUSTODIAN Height - - Body Mass Index 28.57 [...] List Diagnosis ROSE MARY (generalized anxiety disorder) ([facility]) History of depression Migraine with aura and without status migrainosus, not intractable S/P primary low transverse Gestational hypertension PAST MEDICAL HISTORY : Past Medical History: Diagnosis Date Bipolar affect, depressed ([facility]) Bipolar affective disorder ([facility]) 07/28/2009 Cellulitis of right lower extremity 07/08/2024 Treated at outside urgent care - treated with oral Keflex QID x 10 days Depression ([facility]) Posttraumatic stress disorder ([facility]) 07/28/2009 Right foot pain 07/23/2024 Patient [...] level: Not on file Occupational History 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 [address] Rosa Maria Phillips MD [address] [place] [address] documented as of this encounter Results * TSH (08/26/2024 3:30 PM JANITOR CUSTODIAN) TSH, Sensitive 1.10 0.30 - 4.50 uIU/mL 08/26/2024 9:42 PM JANITOR CUSTODIAN [facility] Blood Venipuncture / Unknown 08/26/2024 3:30 PM JANITOR CUSTODIAN 08/26/2024 3:30 PM JANITOR CUSTODIAN Rosa Maria Phillips MD LAB_1 [facility] [address] [place] [address], [facility] * (ABNORMAL) Basic Metabolic Panel (08/26/2024 3:30 PM JANITOR CUSTODIAN) Pathologist [facility] Sodium 140 136 - 145 mmol/L 08/27/2024 10:07 AM [facility] Potassium 3.6 3.5 - 5.1 mmol/L 08/27/2024 10:07 AM [facility] Chloride 110(H) 98 - 109 mmol/L 08/27/2024 10:07 AM [facility] CO2 21 20 - 29 mmol/L 08/27/2024 10:07 AM [facility] Anion Gap 9 6 - 16 mmol/L 08/27/2024 10:07 AM [facility] Calcium 9.6 8.4 - 10.4 mg/dL 08/27/2024 10:07 AM [facility] BUN 9 7 - 26 mg/dL 08/27/2024 10:07 AM [facility] Creatinine 0.72 0.55 - 1.02 mg/dL 08/27/2024 10:07 AM [facility] Glucose 102(H) 70 - 100 mg/dL 08/27/2024 10:07 AM [facility] Comment:The given reference range is for the fasting state. Non-fasting reference range for glucose is 70 - 180 mg/dL. GFR, Estimated >60 >60 mL/min/1.7 3m2 08/27/2024 10:07 AM JANITOR CUSTODIAN [facility] Hours Fasting 0.0 8 - 12 Hours 08/27/2024 10:07 AM JANITOR CUSTODIAN [facility] Blood Venipuncture / Unknown 08/26/2024 3:30 PM JANITOR CUSTODIAN 08/26/2024 3:30 PM JANITOR CUSTODIAN Rosa Maria Phillips MD LAB_1 Performing Organization Address City/State/[place] Co de Phone Number [facility] [address] [place] [phone] documented in this encounter Visit Diagnoses Diagnosis Anxiety (HRC)- Primary Anxiety state, unspecified Palpitations documented in this encounter Care Teams Ax Survey Worker Relationship Specialty Start Date End Date Margot Huang PA-C [address] [place] [address] PCP - General Physician Textile Machine Maintenance Mechanic 11/13/16 documented as of this encounter
--- OUTSIDE RECORDS SUMMARY | 2024-09-07 21:59 | XMS_ITS | Encounter Summary ---
Author Organization [facility] Address [address], [place] [address] Care Team Providers Care Senior Product Development Scientist Name Role Phone Margot Huang PA-C Primary Care Provider [phone] Reason for Referral * Procedure/Equipment (Routine) - New Request Specialty Diagnoses / Procedures Referred By Contac t Referred To Contact Diagnoses Tachycardia Procedures Echocardiogram Marika Gunter PA-C [address] [place] [address] Referral ID Status Reason Start Date Expiration Date V isits Requested Visits Authorized [id number] New Request 09/07/2024 12/07/2025 1 1 RITIES LENDING TRADER Reason for Visit * Procedure/Equipment (Routine) - New Request Specialty Diagnoses / Procedures Referred By Contyara t Referred To Contact Diagnoses Tachycardia Procedures Echocardiogram Marika Gunter PA-C [address] [place] [place] [address] Referral ID Status Reason Start Date Expiration Date V isits Requested Visits Authorized [id number] New Request 09/07/2024 12/07/2025 1 1 Encounter Details Date Type Department Care Team (Late st Contact Info) Description 09/07/2024 1:41 PM SECURITIES LENDING TRADER Hospital En[facility] Echocardiogram [address] [facility] [place], [place] [id number] Tachycardia Social History Tobacco Use Types Packs/Day Years [...] st Contact Info) Description 09/08/2024 4:30 PM SECURITIES LENDING TRADER [facility] [address] [place], [place] [phone] Rosa Maria Phillips MD [address] [place], [place] [id number] documented as of this encounter Procedures Procedure Name Priority Date/Time Associated Diagnosis Comments ECHOCARDIOGRAM STAT 09/07/2024 1:44 PM SECURITIES LENDING TRADER Tachycardia documented in this encounter Results * Echocardiogram (09/07/2024 1:44 PM SECURITIES LENDING TRADER) 09/07/2024 1:44 PM SECURITIES LENDING TRADER Narrative PN ECHO - 09/07/2024 3:05 PM SECURITIES LENDING TRADER Procedure type: ECHOCARDIOGRAM Procedure 09/07/2024 1:44 PM [...] Female Procedure Staff Interpreting DESTINY CONTRERAS MD Termite Treater Helper: Program And Research Coordinator: PETAR JEAN Ordering Provider: JESSICA Dee Primary Provider: JESSICA Dee Electronically signed by DESTINY CONTRERAS MD (Interpreting Termite Treater Helper) on at 3:04 PM Procedure Note Destiny [...] Female Procedure Staff Interpreting DESTINY CONTRERAS MD Termite Treater Helper: Program And Research Coordinator: PETAR JEAN Ordering Provider: JESSICA Dee Primary Provider: JESSICA Dee Electronically signed by DESTINY CONTRERAS MD (Interpreting Termite Treater Helper) on at 3:04 PM Marika Gunter PA-C ET ECHO ORDERABLE S PN ECHO documented in this encounter Visit Diagnoses Diagnosis Tachycardia Tachycardia, unspecified documented in this encounter Care Teams Senior Product Development Scientist Relationship Specialty Start Date End Date Margot Huang PA-C [address] [place] [address] PCP - General Physician Body Cleaner 11/13/16 documented as of this encounter
--- OUTSIDE RECORDS SUMMARY | 2024-09-07 21:59 | XMS_ITS | Encounter Summary ---
Author Organization [facility] Address [address], [place] [address] Care Team Providers Care Hop Farmer Name Role Phone Margot Huang PA-C Primary Care Provider [phone] Reason for Referral * Procedure/Equipment (Routine) - New Request Specialty Diagnoses / Procedures Referred By Sukhi t Referred To Contact Diagnoses Tachycardia Procedures Echocardiogram Marika Gunter PA-C [address] [place] [address] Referral ID Status Reason Start Date Expiration Date V isits Requested Visits Authorized [id number] New Request 09/07/2024 12/07/2025 1 1 CAR RENOVATOR Reason for Visit * Reason Comments TACHYCARDIA Encounter Details Date Type Department Care Team (Late st Contact Info) Description 09/07/2024 10:40 AM USED CAR RENOVATOR Office Visit [place] [address] [facility] [id number] [place] [phone] Marika Gunter PA-C [address] [place], [place] [phone] Tachycardia Social History Tobacco Use Types Packs/Day [...] Comments Blood Pressure 153/92 09/07/2024 10:20 AM USED CAR RENOVATOR Pulse 106 09/07/2024 10:20 AM USED CAR RENOVATOR Temperature 36.9 C (98.5 F) 09/07/2024 10:20 AM USED CAR RENOVATOR Respiratory Rate 16 09/07/2024 10:20 AM USED CAR RENOVATOR Oxygen Saturation 99% 09/07/2024 10:20 AM USED CAR RENOVATOR Inhaled Oxygen Concentration - - Weight - - Height - - Body Mass Index - - documented in this encounter Patient Instructions * Patient Instructions* Marika Gunter PA-C - 09/07/2024 10:40 AM USED CAR RENOVATOR Images from the original note were not included. Discharge Instructions From Your Urgent Care Provider (Marika) Call primary care tomorrow, arrange follow up with them within 7 days following your Urgent Care visit today Review today's visit with them including any lab work or imaging studies done (included below) Return to Urgent Care for any concerns Please go to ER for any new, worsening, or concerning symptoms (or for after hours concerns) Gladys Jamison - For Scheduling Needs Please Call [phone] Thank you for allowing me to assist you with your healthcare needs today, I hope you feel better! Marika Gunter PA-C Urgent Care Provider [facility] HERE [place] [address] [facility] [address] [facility] [phone] Clinic Date of visit: 09/07/2024 To whom it may concern, Please excuse Kacey Durbinner and/or caregiver from work/school/prior obligations 09/07/2024 - 09/08/2024 due to a healthcare visit. Thank you, Marika Gunter PA-C Electronically signed 09/07/2024 11:34 AM by Marika Gunter PA-C LAB AND/OR IMAGING RESULTS FROM TODAYS VISIT Review any lab work or imaging studies done today with primary care at your next visit XR Chest 2 Views Result Date: 09/04/2024 EXAM: CHEST 2 VIEWS LOCATION: [facility] DATE: 09/04/2024 INDICATION: Chest pain. COMPARISON: None. FINDINGS: The lungs are clear. Normal size cardiac silhouette. IMPRESSION: No evidence of active cardiopulmonary disease. US Venous Right Lower Extrem Doppler Result [...] cannot be completely excluded by this technique. Results for orders placed or performed in visit on 09/07/24 ECG 12-LEAD ROUTINE (Non Lab to perform-Today)-STAT Result Value Ref Range Ventricular Rate 105 BPM Atrial Rate 105 BPM P-R Interval 130 ms QRS Duration 78 ms QT 340 ms QTc 449 ms P [place] 71 degrees R [place] 87 degrees T [place] 2 degrees CAR RENOVATOR documented in this encounter Progress Notes * Marika Gunter PA-C - 09/07/2024 10:40 AM CST [place] [address] Urgent Care Provider Note Patient: Kacey Hines Age: 34 y.o. Date Of : 1990 Urgent Care Provider: LEXA Galan Date of Service: 09/07/2024 CHIEF COMPLAINT Chief Complaint Patient presents with TACHYCARDIA HISTORY OF PRESENT ILLNESS 34 y.o. year old female presents to the Urgent Care today for evaluation of ongoing symptoms over the last 6 weeks racing heart, feeling anxious and at times feeling short of breath. She notes that she does have some OCD and anxiety and tends to fixate on her heart rate. She also has quite a bit ofhealthcare associated anxiety. Patient notes that when walking up the stairs the highest her heart rate has gotten has 151 beats per minute. She was not having chest pain. She was not particularly lightheaded or presyncopal. She denies any chance of . Extensive chart review reveals 12 healthcare visits in the last month surrounding her symptoms of anxiety and heart racing. These have included ED urgent care primary care and telehealth visits She had a chest x-ray done 09/04/2024 in the [facility] system that was negative Labs have revealed normal TSH normal magnesium normal troponin and normal/negative D-dimer 09/04/2024 for these symptoms that has been ongoing over the last 6 weeks. Reviewed Nursing Notes: Park Birmingham RN 09/07/24 1022 Addendum Kacey Hines is a 34 y.o.female presents to the Urgent Care for TACHYCARDIA . Patient reports increased anxiety for the past 6 weeks. Was seen on the and sent to ER as her EKG was abnormal. Patient edorses severe health anxiety, and did not get a good explanation of what was wrong on EKG. ER got labs, started her on potassium and sent her home. Feels sxs have been intermittent since then. Currently reports racing heart, trouble sleeping (feels like I'm dying when I fall asleep, gets jerks that wake her up), intermittent chest pain. Has been on lexapro for the past 5 weeks. Stopped in February and restarted. REVIEW OF SYSTEMS As reflected above in HPI. With open ended questioning the patient denies any other complaints or concerns for today's visit. MEDICAL DECISION MAKING / ASSESSMENT / PLAN Patient seen and assessed. Presented to Urgent Care for ongoing symptoms with heart racing that seems to be noticed when she stands up and remain standing. Here in urgent care her heart rate is in the 80s at rest and goes as high as 121 with standing and ambulating. She has had no heart rates in the high 100 range. She has had no syncope or presyncope. Occasionally will feel a bit short of breathor lightheaded but not consistently. She was had extensive workup with labs and a normal chest x-ray. She also tells us that she had a bedside echo done at [facility] that was normal. I did not call and consult with on-call glass embosser and discussed the case with him. He does recommend a formal echo to rule out any structural issues but otherwise recommended providing the patientwas reassurance that this is not anything scary or dangerous and the patient should continue to take her atenolol. He notes that the 12.5 mg dose is on the low end and the patient could take 25 mg daily and see if this does help with her tachycardia. Patient was a follow up scheduled tomorrow with the primary care doctor. I have arranged for her tohave the echocardiogram done in 2:00 p.m. today so those results will be available for discussion at her primary care doctor tomorrow and together they can decide her atenolol dose to start back on as she was not been taking it. Further workup per primary care. Encouraged the patient to use her Ativan as she does feel that it is helping with her anxious symptoms. At this point I do not feel that there is any life-threatening or emergent etiology that requires admission or further evaluation from urgent care/ED today. D-dimer has been negative. Given duration of symptoms I do not suspect PE. Nothing suggestive of ACS. EKG does not show any new or concerning changes today when compared to previous. Reassurance was provided to the patient. Return precautionsfor urgent care/ER were discussed. Patient will follow up tomorrow as planned. She will proceed to echocardiogram at 2:00 p.m.. DIAGNOSIS: ICD-10-CM 1. Tachycardia R00.0 ECG 12-LEAD ROUTINE (Non Lab to perform-Today)-STAT No orders of the defined types were placed in this encounter. PHYSICAL EXAM Vitals Reviewed: Vitals: 09/07/24 1020 BP: (!) 153/92 Pulse: (!) 106 Resp: 16 Temp: 36.9 ??C (98.5 ??F) SpO2: 99% Constitutional: Alert, Cooperative, Conversational HENT: Atraumatic, no obvious abnormality to the head/face Eyes: Eyes track movements normally during exam, no drainage, conjunctiva normal Neck: Moves neck freely and normally throughout exam, no visible abnormality Respiratory: No respiratory distress. SPO2 as above. Normal Effort. Talking in full sentences. Cardiovascular: BP and Heart Rate as above Musculoskeletal: Normal use of extremities throughout exam without evidence of abnormality. Neurological: Alert and oriented. Speech is clear and appropriate. Skin: Dry, No evidence rash/abrasion/laceration on my exam. Psychiatric: Normal affect. Normal behavior. LABS - IMAGING - MEDICATIONS LABS/EKG: No results found for any visits on 09/07/24. IMAGING: XR Chest 2 Views Result Date: 09/04/2024 EXAM: CHEST 2 VIEWS LOCATION: [facility] DATE: 09/04/2024 INDICATION: Chest pain. COMPARISON: None. FINDINGS: The lungs are clear. Normal size cardiac silhouette. IMPRESSION: No evidence of active cardiopulmonary disease. US Venous Right Lower Extrem Doppler Result [...] cannot be completely excluded by this technique. INTERVENTIONS: PRIOR HISTORY Reviewed via [facility] Chart Review/CareEverywhere/Discussion with Patient Medications Allergies Past Medical/Surgical History Family/Social History DISPOSITION Discharge Home Marika Gunter PA-C [place] [address] Urgent Care There are no Patient Instructions on file for this visit. CAR RENOVATOR documented in this encounter Nursing Notes * Park Birmingham RN - 09/07/2024 10:40 AM CST Kacey Hines is a 34 y.o.female presents to the Urgent Care for TACHYCARDIA . Patient reports increased anxiety for the past 6 weeks. Was seen on the and sent to ER as her EKG was abnormal. Patient edorses severe health anxiety, and did not get a good explanation of what was wrong on EKG. ER got labs, started her on potassium and sent her home. Feels sxs have been intermittent since then. Currently reports racing heart, trouble sleeping (feels like I'm dying when I fall asleep, gets jerks that wake her up), intermittent chest pain. Has been on lexapro for the past 5 weeks. Stopped in February and restarted. CAR RENOVATOR documented in this encounter Plan of Treatment Upcoming Encounters Date Type Department Care Team (Late st Contact Info) Description 09/08/2024 4:30 PM USED CAR RENOVATOR [facility] [address] [place], [place] [phone] Rosa Maria Phillips MD [address] [place], [place] [phone] documented as of this encounter Procedures Procedure Name Priority Date/Time Associated Diagnosis Comments ECG 12 LEAD OUTPATIENT STAT 09/07/2024 10:26 AM USED CAR RENOVATOR Tachycardia documented in this encounter Results * Echocardiogram (09/07/2024 1:44 PM USED CAR RENOVATOR) 09/07/2024 1:44 PM USED CAR RENOVATOR Narrative PN ECHO - 09/07/2024 3:05 PM USED CAR RENOVATOR Procedure type: ECHOCARDIOGRAM Procedure 09/07/2024 1:44 PM [...] 34 year(s) Gender: Female Procedure Staff Interpreting MARA CONTRERAS MD Carding Doubler: Dryer Operator: PETAR JEAN Ordering Provider: JESSICA Dee Primary Provider: JESSICA Dee Electronically signed by MARA CONTRERAS MD (Interpreting Carding Doubler) on at 3:04 PM Procedure Note Mara Contreras MD - 09/07/2024 Procedure type: ECHOCARDIOGRAM [...] educated on test, all questions answered by: . DEMOGRAPHICS Patient name: DIANN TOMPKINS Date of : 1990 Age: 34 year(s) Gender: Female Procedure Staff Interpreting MARA CONTRERAS MD Carding Doubler: Dryer Operator: PETAR JEAN Ordering Provider: JESSICA Dee Primary Provider: JESSICA Dee Electronically signed by MARA CONTRERAS MD (Interpreting Carding Doubler) on at 3:04 PM Marika Gunter PA-C ET ECHO ORDERABLE S PN ECHO * ECG 12-LEAD ROUTINE (Non Lab to perform-Today)-STAT (09/07/2024 10:26 AM USED CAR RENOVATOR) Ventricular Rate 105 BPM [facility] Atrial Rate 105 BPM [facility] P-R Interval 130 ms [facility] QRS Duration 78 ms [facility] QT 340 ms [facility] QTc 449 ms [facility] P [place] 71 degrees [facility] R [place] 87 degrees [facility] T [place] 2 degrees [facility] 09/07/2024 10:2 6 AM USED CAR RENOVATOR Narrative [facility] - 09/07/2024 3:27 PM USED CAR RENOVATOR Mild Sinus tachycardia Possible Left atrial enlargement [...] PA-C PN ECG ORDERABLES Performing Organization Address City/[facility] [address]/[facility] Co de Phone Number [facility] [address] [place] [address] documented in this encounter Visit Diagnoses Diagnosis Tachycardia Tachycardia, unspecified Tachycardia Tachycardia, unspecified documented in this encounter Care Teams Hop Farmer Relationship Specialty Start Date End Date Margot Huang PA-C [address] [place] [address] PCP - General Physician Blow Pit Helper 11/13/16 documented as of this encounter
--- OUTSIDE RECORDS SUMMARY | 2024-09-07 21:59 | XMS_ITS | Encounter Summary ---
Author Organization [facility] Address [address] [place] [address] Care Team Providers Care Batch Unit Treater Name Role Phone Margot Huang PA-C Primary Care Provider [phone] Reason for Visit * Reason Comments Follow-up, NOS Entered automaticall y based on patient selection in [employer]. Encounter Details Date Type Department Care Team (Late st Contact Info) Description 08/26/2024 1:00 PM [facility] [address] [place], [place] [phone] Rosa Maria Phillips MD [address] [place], [place] [phone] Chief Comp: Follow-up, NOS Social History Tobacco [...] to nature of sx. Ok to close. [facility] documented in this encounter Plan of Treatment Upcoming Encounters Date Type Department Care Team (Late st Contact Info) Description 09/08/2024 4:30 PM [facility] [address] [place], [place] [phone] Rosa Maria Phillips MD [address] [place], [place] [phone] documented as of this encounter Visit Diagnoses Not on filedocumented in this encounter Care Teams Batch Unit Treater Relationship Specialty Start Date End Date Margot Huang, PAKeenanC [address] [place] [address] PCP - General Physician Suture Polisher 11/13/16 documented as of this encounter
--- OUTSIDE RECORDS SUMMARY | 2024-09-07 21:59 | XMS_ITS | Encounter Summary ---
Author Organization [employer] Address [address], [place] [address] Care Team Providers Care Gas Well Drilling Manager Name Role Phone Margot Huang PA-C Primary Care Provider [phone] Reason for Referral * Therapies (Routine) - New Request Specialty Diagnoses / Procedures Referred By Sukhi hassan Referred To Contact Diagnoses Low back pain, unspecified back pain laterality, unspecified chronicity, unspecified whether sciatica present Right calf pain Antonia Ya PA-C [address] [place] [address] Referral ID Status Reason Start Date Expiration Date V isits Requested Visits Authorized [id number] New Request 08/11/2024 08/11/2025 1 1 Scheduling Instructions Your clinician has recommended an appointment with [facility]. You can quickly schedule your appointment by signing in to your online account at [email or web address] or through the text message you may have received. You can also make an appointment by calling [phone]. We suggest you call your health insurance [...] present Right calf pain Antonia Ya PA-C [address] [place] [address] Referral ID Status Reason Start Date Expiration Date V isits Requested Visits Authorized [id number] New Request 08/11/2024 11/09/2024 1 1 Scheduling Instructions Your provider has recommended an appointment with [facility]. You can quickly make your appointment online at [employer]schedule. You can also call [phone] for help scheduling your appointment. We suggest [...] Right Lower Extrem Doppler Antonia Ya PA-C [address] [place] [address] Referral ID Status Reason Start Date Expiration Date V isits Requested Visits Authorized [id number] Incomplete 08/11/2024 11/10/2025 1 1 Reason for Visit * Reason Comments Back Pain LEG PAIN Encounter Details Date Type Department Care Team (Late st Contact Info) Description 08/11/2024 12:40 PM CDT Office Visit [place] [address] [facility] [address] [place] [phone] Antonia Ya PA-C [address] [place] [address] Low back pain, unspecified back pain laterality, [...] 115 08/11/2024 10:19 AM CDT Temperature 36.7 C (98.1 F) 08/11/2024 10:19 AM CDT Respiratory Rate 16 08/11/2024 10:19 AM CDT [...] be sent through Care Everywhere. * Sciatica (Georgian) documented in this encounter Progress Notes * [...] Color Yellow Urine Clarity Clear Clear Specific [place], Urine >=1.030 (A) 1.005 - 1.030 PH [...] st Contact Info) Description 09/08/2024 4:30 PM [facility] [address] [place] [address] Rosa Maria Phillips MD [address] [place] [address] Scheduled Referrals Name Type Priority Associated Diagnoses [...] this technique. Antonia Ya PA-C [facility] * (ABNORMAL) Urine Culture - Collect in Lab (08/11/2024 10:18 AM CDT) Pathologist [facility] Urine Culture Growth(A) 08/12/2024 10:20 PM CDT [facility] Urine Culture <10,000 CFU/mL Mixed Bacterial Growth 08/12/2024 10:20 PM [facility] Comment: Mixed Bacterial Growth indicates the specimen is likely contaminated at collection with urogenital and/or fecal satinder. The presence of organisms at <10,000 cfu/ml in culture, UTI unlikely. Urine URINE SPECIMEN COLLECTION, CLEAN CATCH / Unknown Non-blood Collection / Unknown 08/11/2024 10:18 AM CDT 08/11/2024 10:35 AM CDT Antonia Ya PA-C LAB[address] [place] [address], [facility] * (ABNORMAL) Urine Microscopic Evaluation: Clean Catch (08/11/2024 10:18 AM CDT) Red Blood Cells 0-3 0 - 3 /HPF 10:54 AM CDT [facility] White Blood Cells 6-9(A) 0 - 5 /HPF 08/11/2024 10:54 AM CDT [facility] Bacteria Moderate(A ) None Seen /HPF 08/11/2024 10:54 AM CDT [facility] Squamous Epithelial Cells Moderate(A ) None Seen, Occasional , Few /HPF 08/11/2024 10:54 AM CDT [facility] Mucus Present(A) None Seen /HPF 08/11/2024 10:[address] [facility] Urine URINE SPECIMEN COLLECTION, CLEAN CATCH / Unknown Non-blood Collection / Unknown 08/11/2024 10:18 AM CDT 08/11/2024 10:35 AM CDT Laurent Grossman [facility] [facility] [address] [place] [address], [facility] * (ABNORMAL) Urinalysis Routine, Micro/Culture if Pos: Clean Catch (08/11/2024 10:18 AM CDT) Urine Culture Comment Urinalysis results do not meet criteria for urine culture reflex. 08/11/2024 10:[address] [facility] Color Yellow 08/11/2024 10:[address] [facility] Clarity Clear Clear 08/11/2024 10:[address] [facility] Specific [place] >=1.030(A) 1.005 - 1.030 08/11/2024 10:[address] [facility] pH 5.5 5.0 - 8.0 08/11/2024 10:[address] [facility] Protein Negative Neg/Trace 08/11/2024 10:[address] [facility] Glucose Negative Negative 08/11/2024 10:[address] [facility] Ketones 15(A) Negative 08/11/2024 10:[address] [facility] Urobilinogen 0.2 <2.0 08/11/2024 10:[address] [facility] Bilirubin Negative Negative 08/11/2024 10:[address] [facility] Blood Negative Neg/Trace 08/11/2024 10:[address] [facility] Nitrite Negative Negative 08/11/2024 10:[address] [facility] Leukocyte Esterase Trace(A) Negative 08/11/2024 10:[address] [facility] Source Clean Catch 08/11/2024 10:[address] [facility] Urine URINE SPECIMEN COLLECTION, CLEAN CATCH / Unknown Non-blood Collection / Unknown 08/11/2024 10:18 AM CDT 08/11/2024 10:35 AM CDT Laurent Martinez Chauncey [facility] [address] [place] [address], [facility] documented in this encounter Visit Diagnoses Diagnosis Low back pain, unspecified back pain laterality, unspecified chronicity, unspecified whether sciatica present Right calf pain Right calf pain documented in this encounter Care Teams Gas Well Drilling Manager Relationship Specialty Start Date End Date Margot Huang PA-C [address] [place] [address] PCP - General Physician Breaker Oiler 11/13/16 documented as of this encounter
--- OUTSIDE RECORDS SUMMARY | 2024-09-07 21:59 | XMS_ITS | Encounter Summary ---
Author Organization [employer] Address [address] [place] [address] Care Team Providers Care Lead Miner Name Role Phone Margot Huang PA-C Primary Care Provider [phone] Encounter Details Date Type Department Care Team (Late Contact Info) Description 08/26/2024 3:30 PM SPONGE BUFFER Lab Visit [facility] [address] [place], [place] [id number] Anxiety (HRC); Palpitations Social History Tobacco Use [...] (Late Contact Info) Description 09/08/2024 4:30 PM SPONGE BUFFER Telemedicine [facility] [address] [place], [place] [address] Rosa Maria Phillips MD [address] [place], [place] [address] documented as of this encounter Procedures Procedure Name Priority Date/Time Associated Diagnosis Comments CBC AND DIFFERENTIAL PANEL Routine 08/26/2024 3:30 PM SPONGE BUFFER Anxiety (HRC) Palpitations COMPLETE BLOOD COUNT-W/DIFF Routine 08/26/2024 3:30 PM SPONGE BUFFER Anxiety (HRC) Palpitations TSH, SENSITIVE Routine 08/26/2024 3:30 PM SPONGE BUFFER Anxiety (HRC) Palpitations BASIC METABOLIC PANEL Routine 08/26/2024 3:30 PM SPONGE BUFFER Anxiety (HRC) Palpitations documented in this encounter Results * Complete Blood Count-W/Diff (08/26/2024 3:30 PM SPONGE BUFFER) WBC 6.5 3.5 - 10.5 x10(9)/L 08/26/2024 3:36 PM SPONGE BUFFER [facility] RBC 4.95 3.90 - 5.03 x10(12)/L 08/26/2024 3:36 PM SPONGE BUFFER [facility] Hemoglobin 14.8 12.0 - 15.5 g/dL 08/26/2024 3:36 PM SPONGE BUFFER [facility] HCT 43.5 34.9 - 44.5 % 08/26/2024 3:36 PM SPONGE BUFFER [facility] MCV 87.9 80.0 - 100.0 fL 08/26/2024 3:36 PM SPONGE BUFFER [facility] MCH 29.9 27.6 - 33.3 pg 08/26/2024 3:36 PM SPONGE BUFFER [facility] MCHC 34.0 31.5 - 35.2 g/dL 08/26/2024 3:36 PM SPONGE BUFFER [facility] RDW 13.1 11.9 - 15.5 % 08/26/2024 3:36 PM SPONGE BUFFER [facility] Platelets 264 150 - 450 x10(9)/L 08/26/2024 3:36 PM SPONGE BUFFER [facility] Neutrophil Absolute 4.5 1.7 - 7.0 10(9)/L 08/26/2024 3:36 PM SPONGE BUFFER [facility] Lymphocyte Absolute 1.4 1.0 - 4.8 10(9)/L 08/26/2024 3:36 PM SPONGE BUFFER [facility] Monocyte Absolute 0.5 0.2 - 0.9 10(9)/L 08/26/2024 3:36 PM SPONGE BUFFER [facility] Eosinophil Absolute 0.0 0.0 - 0.5 10(9)/L 08/26/2024 3:36 PM SPONGE BUFFER [facility] Basophil Absolute 0.0 0.0 - 0.3 10(9)/L 08/26/2024 3:36 PM SPONGE BUFFER [facility] Blood Venipuncture / Unknown 08/26/2024 3:30 PM SPONGE BUFFER 08/26/2024 3:30 PM SPONGE BUFFER Rosa Maria Phillips MD LAB_1 [facility] [address] [place] [address] * TSH (08/26/2024 3:30 PM SPONGE BUFFER) Pathologist [facility] TSH, Sensitive 1.10 0.30 - 4.50 uIU/mL 08/26/2024 9:42 PM SPONGE BUFFER [facility] Blood Venipuncture / Unknown 08/26/2024 3:30 PM SPONGE BUFFER 08/26/2024 3:30 PM SPONGE BUFFER Rosa Maria Phillips MD [facility]1 [facility] [address] * (ABNORMAL) Basic Metabolic Panel (08/26/2024 3:30 PM SPONGE BUFFER) Pathologist [facility] Sodium 140 136 - 145 mmol/L 08/27/2024 10:07 AM [facility] Potassium 3.6 3.5 - 5.1 mmol/L 08/27/2024 10:07 AM [facility] Chloride 110(H) 98 - 109 mmol/L 08/27/2024 10:07 AM [facility] CO2 21 20 - 29 mmol/L 08/27/2024 10:07 AM [facility] Anion Gap 9 6 - 16 mmol/L 08/27/2024 10:07 AM [facility] Calcium 9.6 8.4 - 10.4 mg/dL 08/27/2024 10:07 AM [facility] BUN 9 7 - 26 mg/dL 08/27/2024 10:07 AM [facility] Creatinine 0.72 0.55 - 1.02 mg/dL 08/27/2024 10:07 AM [facility] Glucose 102(H) 70 - 100 mg/dL 08/27/2024 10:07 AM [facility] Comment:The given reference range is for the fasting state. Non-fasting reference range for glucose is 70 - 180 mg/dL. GFR, Estimated >60 >60 mL/min/1.7 3m2 08/27/2024 10:07 AM [facility] Hours Fasting 0.0 8 - 12 Hours 08/27/2024 10:07 AM [facility] Blood Venipuncture / Unknown 08/26/2024 3:30 PM SPONGE BUFFER 08/26/2024 3:30 PM SPONGE BUFFER Rosa Maria Phillips MD LAB_1 [facility] [address] [place] [address] documented in this encounter Visit Diagnoses Diagnosis Anxiety (HRC) Anxiety state, unspecified Palpitations documented in this encounter Care Teams Lead Miner Relationship Specialty Start Date End Date Margot Huang PA-C [address] [place] [address] PCP - General Physician Trestle Builder 11/13/16 documented as of this encounter
--- OUTSIDE RECORDS SUMMARY | 2024-09-07 21:59 | XMS_ITS | Encounter Summary ---
Author Organization [employer] Address [address], [place] [address] Care Team Providers Care Superintendent Drilling And Production Name Role Phone Margot Huang PA-C Primary Care Provider [phone] Reason for Referral * Consult/Transfer Care (Routine) - New Request Specialty Diagnoses / Procedures Referred By Sukhi hassan Referred To Contact Diagnoses Anxiety (HRC) Rosa Maria Phillips MD [address] [place] [address] Referral ID Status Reason Start Date Expiration Date V isits Requested Visits Authorized [id number] New Request 08/19/2024 11/18/2025 1 1 Scheduling Instructions Your clinician has recommended an appointment with Behavioral Health. You may call [phone] to schedule your appointment. This recommended service/s may not be covered by your health plan (health insurance). To find out your specific benefit coverage, please call the number on your insurance card. Please note that in order to maintain [...] this order: Confirmed with patient Comments Jamey herbert Longoria Reason for Visit * Reason Comments MEDICATION CHECK Encounter Details Date Type Department Care Team (Late st Contact Info) Description 08/19/2024 2:30 PM CDT [facility] [address] [place], [place] [phone] Rosa Maria Phillips MD [address] [place] [address] Anxiety (HRC) (Primary Dx); Intractable [...] List Diagnosis ROSE MARY (generalized anxiety disorder) ([facility]) History of depression Migraine with aura and without status migrainosus, not intractable S/P primary low transverse Gestational hypertension PAST MEDICAL HISTORY : Past Medical History: Diagnosis Date Bipolar affect, depressed ([facility]) Bipolar affective disorder ([facility]) 07/28/2009 Cellulitis of right lower extremity 07/08/2024 Treated at outside urgent care - treated with oral Keflex QID x 10 days Depression ([facility]) Posttraumatic stress disorder ([facility]) 07/28/2009 Right foot pain 07/23/2024 Patient [...] level: Not on file Occupational History 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 Tobacco Use Smoking status: Former Current packs/day: [...] Contact Info) Description 09/08/2024 4:30 PM SCREW MACHINE SETTER Telemedicine [facility] [address] [place] [address] Rosa Maria Phillips MD [address] [place], [place] [address] Scheduled Referrals Name Type Priority Associated Diagnoses Orde r Schedule Behavioral Health Adult/Peds Referral Routine Anxiety (HRC) Ordered: 08/19/2024 documented as of this encounter Visit Diagnoses Diagnosis Anxiety (HRC)- Primary Anxiety state, unspecified Intractable migraine with aura without status migrainosus Migraine with aura, with intractable migraine, so stated, without mention of status migrainosus documented in this encounter Care Teams Superintendent Drilling And Production Relationship Specialty Start Date End Date Margot Huang, PAKeenanC [address] [place] [address] PCP - General Physician Protection Manager 11/13/16 documented as of this encounter
--- OUTSIDE RECORDS SUMMARY | 2024-09-07 21:59 | XMS_ITS | Encounter Summary ---
Author Organization [employer] Address [address], [place] [address] Care Team Providers Care Inspector Aide Name Role Phone Margot Huang PA-C Primary Care Provider [phone] Reason for Visit * Reason Comments ANXIETY * Consult/Transfer Care (Routine) - New Request Specialty Diagnoses / Procedures Referred By Sukhi t Referred To Contact Diagnoses Low back pain, unspecified back pain laterality, unspecified chronicity, unspecified whether sciatica present Right calf pain Antonia Ya PA-C [address] [place] [address] Referral ID Status Reason Start Date Expiration Date V isits Requested Visits Authorized [id number] New Request 08/11/2024 11/09/2024 1 1 Encounter Details Date Type Department Care Team (Late st Contact Info) Description 08/13/2024 9:00 AM CDT Office Visit [facility] [address] [place] [address] Jim Esparza PA-C [address] [place], [place] [phone] Anxiety (HRC) (Primary Dx); Radiculopathy of lumbar [...] 2). Right leg pain/numbness, low back pain: [place] related to lumbar radiculopathy. She was seen [...] with sacroiliitis. She has been doing some acute care assistant and Naproxen prescribed in . Review of [...] st Contact Info) Description 09/08/2024 4:30 PM JACK SPINNER Telemedicine [facility] [address] [place], [place] [address] Rosa Maria Phillips MD [address] [place] [address] documented as of this encounter Visit Diagnoses Diagnosis Anxiety (HRC)- Primary Anxiety state, unspecified Radiculopathy of lumbar region Thoracic or lumbosacral neuritis or radiculitis, unspecified Sacroiliitis (HRC) Sacroiliitis, not elsewhere classified documented in this encounter Care Teams Inspector Aide Relationship Specialty Start Date End Date Margot Huang PA-C [address] [place] [address] PCP - General Physician Merchandising Assistant 11/13/16 documented as of this encounter
--- OUTSIDE RECORDS SUMMARY | 2024-09-07 22:00 | XMS_ITS | Encounter Summary ---
Author Organization [facility] Address [address] [place] [address] Care Team Providers Care Sole Molding Machine Operator Name Role Phone Margot Huang PA-C Primary Care Provider [phone] Reason for Visit * Reason Comments CELLULITIS Encounter Details Date Type Department Care Team (Late st Contact Info) Description 07/23/2024 7:30 AM CDT Telemedicine [facility] [address] [place] [address] Steve Stoll PA-C [address] [place] [address] Right foot pain (Primary Dx); Cellulitis of [...] Additionally, you may receive a survey from [facility] through [employer], phone or mail about your visit with [...] out to me via clinic line or [employer] if there is ever anything you need. Nehemiah Stoll PA-C [facility] documented in this encounter Progress Notes * Steve Stoll PA-C - 07/23/2024 7:30 AM CDT Images from the original note were not included. [facility] Nehemiah Stoll PA-C Kacey Hines 33 y.o. [...] she was recently treated at [facility] urgent care for cellulitis of [...] of visit. Nehemiah Stoll PA-C Family Medicine [facility] documented in this encounter Plan of Treatment Upcoming Encounters Date Type Department Care Team (Late st Contact Info) Description 09/08/2024 4:30 PM INFORMATION CLERK BROKERAGE [facility] [address] [place], [place] [address] Rosa Maria Phillips MD [address] [place] [address] documented as of this encounter Visit Diagnoses Diagnosis Right foot pain- Primary Pain in limb Cellulitis of right lower extremity Cellulitis and abscess of leg, except foot documented in this encounter Care Teams Sole Molding Machine Operator Relationship Specialty Start Date End Date Margot Huang PA-C [address] [place] [address] PCP - General Physician Veterinary Surgery Technician 11/13/16 documented as of this encounter
--- OUTSIDE RECORDS SUMMARY | 2024-09-07 22:00 | XMS_ITS | Encounter Summary ---
Author Organization [employer] Address [address] [place] [address] Care Team Providers Care Guide Winder Name Role Phone Gladys Summers Primary Care Pr ovider Encounter Details Date Type Department Care Team (Late st Contact Info) Description 08/31/2024 Telephone [facility] Services - Behavioral Service Line [address] [place] [address] Kiki Chairez Social History Tobacco Use [...] on file Legal Sex Female 4:22 AM STEM FRAZER Gender Identity Not on file Sexual Orientation Not on file documented as of this encounter Miscellaneous Notes * Telephone Encounter - Kiki Chairez - 08/31/2024 4:54 PM CST This typewriter assembler HARPREET with callback contact. FRAZER documented in this encounter Plan of Treatment Not on file documented as of this encounter Visit Diagnoses Not on filedocumented in this encounter Care Teams Guide Winder Relationship Specialty Start Date End Date Clinic, [facility] [address] [place] [address] PCP - General 08/23/24 documented as of this encounter
--- OUTSIDE RECORDS SUMMARY | 2024-09-07 22:00 | XMS_ITS | Encounter Summary ---
Author Organization [employer] Address [address] [place] [address] Care Team Providers Care Web Design Intern Name Role Phone Margot Huang PA-C Primary Care Provider [phone] Reason for Visit * Reason Comments CELLULITIS Encounter Details Date Type Department Care Team (Late st Contact Info) Description 07/15/2024 Nurse Triage Careline [address] [place], [place] [address] Leobardo Lloyd X CELLULITIS Social History Tobacco [...] as of this encounter Nursing Notes * Laeh Archibald RN - 07/15/2024 7:57 PM CDT [...] cellulitis Protocols used: Cellulitis on Antibiotic Follow-up [id number] * Leobardo Lloyd - 07/15/2024 6:06 PM CDT Verified patient identity using three identifiers: Yes Caller's relationship to patient: Self, Do you have a provider/clinic where you are seen for this? STACEY/Dejon/Kari/Colton Are you calling about a /TERMITE INSPECTOR related concern? No Symptoms Describe the reason [...] st Contact Info) Description 09/08/2024 4:30 PM SENIOR ADVISOR Telemedicine [facility] [address] [place] [address] Rosa Maria Phillips MD [address] [place] [address] documented as of this encounter Visit Diagnoses Not on filedocumented in this encounter Care Teams Web Design Intern Relationship Specialty Start Date End Date Margot Huang, PAKeenanC [address] [place] [address] PCP - General Physician Ocular Care Technologist 11/13/16 documented as of this encounter
--- OUTSIDE RECORDS SUMMARY | 2024-09-07 22:00 | XMS_ITS | Encounter Summary ---
Author Organization [employer] Address [address], [place] [address] Care Team Providers Care Collections And Archives Director Name Role Phone Margot Huang PA-C Primary Care Provider [phone] Encounter Details Date Type Department Care Team (Late Contact Info) Description 11/27/2017 Consent for Procedure/Treatme nt [facility] Department INFORMED CONSENT RECORD Social History [...] st Contact Info) Description 09/08/2024 4:30 PM MANGLE FEEDER [facility]medicine [facility] [address] [place], [place] [address] Rosa Maria Phillips MD [address] [place] [address] documented as of this encounter Visit Diagnoses Not on filedocumented in this encounter Additional Health Concerns Infection Onset Date Last Indicated Resolved Time R/O COVID19 05/20/2020 05/20/2020 05/27/2020 3:18 AM CDT documented as of this encounter Care Teams Collections And Archives Director Relationship Specialty Start Date End Date Margot Huang PA-C [address] [facility] [place] [address] PCP - General Physician Sales Account Specialist 11/13/16 documented as of this encounter
--- OUTSIDE RECORDS SUMMARY | 2024-09-07 22:00 | XMS_ITS | Encounter Summary ---
Author Organization [employer] Address [address] [place] [address] Care Team Providers Care Enrobing Machine Operator Name Role Phone Clinic, [facility] Primary Care Pr ovider Reason for Visit * Reason Comments Anxiety Encounter Details Date Type Department Care Team ([facility] st Contact Info) Description 08/26/2024 7:06 PM PRODUCTION MATERIAL HANDLER - 08/26/2024 11:00 PM PRODUCTION MATERIAL HANDLER Emergency [facility] Emergency Dept [address] [place] [address] Juarez Gonzalez MD [facility] [address] [facility] [address] [place], [place] [address] ROSE MARY (generalized anxiety disorder); Generalized anxiety [...] on file Legal Sex Female 4:22 AM PRODUCTION MATERIAL HANDLER Gender Identity Not on file Sexual Orientation Not on file documented as of this encounter Last Filed Vital Signs Vital Sign Reading Time Taken Comments Blood Pressure 130/87 08/26/2024 7:04 PM PRODUCTION MATERIAL HANDLER Pulse 94 08/26/2024 7:04 PM PRODUCTION MATERIAL HANDLER Temperature 37 C (98.6 F) 08/26/2024 7:04 PM PRODUCTION MATERIAL HANDLER Respiratory Rate 18 08/26/2024 7:04 PM PRODUCTION MATERIAL HANDLER Oxygen Saturation 100% 08/26/2024 7:04 PM PRODUCTION MATERIAL HANDLER Inhaled Oxygen Concentration - - Weight 77.4 kg (170 lb 10.2 oz) 08/26/2024 7:04 PM PRODUCTION MATERIAL HANDLER Height - - Body Mass Index 27.54 08/23/2024 11:30 AM PRODUCTION MATERIAL HANDLER documented in this encounter Discharge Instructions * Discharge Instructions* Steve Tang P - 08/26/2024 10:19 PM PRODUCTION MATERIAL HANDLER Scheduled Appointment: Date: , 08/27/2024 Time: 12:00 pm - 1:00 pm Provider: Nikia CARRION PA-C Location: [place] [address] Type: Telepsychiatry Patient Instructions: Please fill New Patient Form by using following link. All forms need to be completed 24 hours priorto the appointment date/time by going to [email or web address] Please call us on [phone] 24 hours prior to your scheduled appointment to confirm that you are able to attend. We will provi de you information about how to log into video call software when you call. It is your responsibility to contact your insurance company directly to verify coverage, eligibility, payment, and benefit information for any appointments or referrals listed above. [facility] maintains an extensive network of licensed behavioral [...] of FREE Mental Health Options in the [facility] Area: [facility] ([facility]) Serves those in emotional crisis with 24-hour, [id number]-uww-q-week crisis counseling, assessment, referral, and medication management. Suicidal: [phone] Consultation: [phone] [place] [address] 13/05 [facility] [phone] Serves those in need of free outpatient mental health care Hours: Sat, Sat, Sat 1-3pm; Sat- 6:30-8:30pm [facility] [address] [place], [place] [id number] UCTION MATERIAL HANDLER UCTION MATERIAL HANDLER documented in this encounter Medications at Time [...] as of this encounter Consult Notes * Pearl Low, COMPLAINT ANALYST - 08/26/2024 10:24 PM CSTAssociated Order(s): DIAGNOSTIC EVALUATION CENTER (DEC) ASSESSMENT ORDER Diagnostic Evaluation Consultation Crisis Assessment Patient Name: Kacey Hines Age: [age] year old Legal Sex: female Gender Identity: female Pronouns: Race: White Ethnicity: Not or Language: Spanish Patient was assessed: Virtual: ioBridge Crisis Assessment Start Date: 08/26/24 Crisis Assessment Start Time: 2137 Crisis Assessment Stop Time: 2157 Patient location: [facility] EMERGENCY DEPT ED05 Referral Data [...] information name, relationship, phone number: Beth Gibson [phone] What happened today: Beth reported Pt came [...] Beth noted Pt has cellulitisissues. Risk Assessment [place] Suicide Severity Rating Scale Full Clinical Version: Suicidal Ideation Q1 Wish to be (Lifetime): No Q2 Non-Specific Active Suicidal Thoughts (Lifetime): No Q6 Suicide Behavior (Lifetime): no Suicidal Behavior (Lifetime) Actual Attempt (Lifetime): No Interrupted Attempts (Lifetime): No Aborted or Self-Interrupted Attempt (Lifetime): No Preparatory Acts or Behavior (Lifetime): No [place] Suicide Severity Rating Scale Recent: Suicidal Ideation [...] None Current Care Team Patient Care Team: Kristopher, Gladys Gar as PCP - General Diagnosis [...] that pt discharge with OP MH support. Community Relations Officer connected patient to a psychiatry appointment tomorrow. [...] DEC - Triage & Transition Services Callback: [phone] UCTION MATERIAL HANDLER documented in this encounter ED Notes * Sarah Sotomayor RN - 08/26/2024 9:39 PM CST V-DEC at bedside. UCTION MATERIAL HANDLER * Juarez Gonzalez MD - 08/26/2024 7:41 [...] use.she also mentions recently losing her long [employer] job of 13 years. 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 Review of External Notes Reviewed office visit from earlier today as well as telehealth behavioral visit from August 24. Past Medical History Medical History and Problem List Depression Hypertension ROSE MARY Migraine PTSD Bipolar type 1 Medications Omeprazole Oxycodone Escitalopram Hydroxyzine Atenolol Lorazepam Rizatriptan Surgical History C section Manager Managing surgery [place] tooth removal Physical Exam Patient Vitals for [...] no nystagmus seen by her mental health rubber press operator no indication for inpatient admission, will focus [...] of Management Discussed with our mental health rubber press operator ED Course ED Course as of 08/26/24 2334 SatAug 26, 20241916 Reviewed office visit from earlier today as well as telehealth behavioral visit from August 24. 1939 I obtained the history and examined the patient as above. 2207 I talked to [facility] regarding the patient. Additional Documentation Medical Decision Making / Diagnosis [facility] [address] [address] [facility] Diagnoses: [facility] Kacey Hines is a 34 year old [...] anxiety., Disp-12 tablet, R-0, E-Prescribe Scribe Disclosure: IMolly, am serving as a scribe at 7:54 PM on 08/26/2024 to document services personally performed by Juarez Gonzalez MD based on my observations and the provider's statements to me. Juarez Gonzalez MD 08/26/241 UCTION MATERIAL HANDLER * Caroline Paulino RN - 08/26/2024 7:08 PM CST Bed: ED05 Expected date: Expected time: Means of arrival: Comments: MH only UCTION MATERIAL HANDLER * Sarah Aguirre RN - 08/26/2024 7:06 PM CST Bed: ED04 Expected date: Expected time: Means of arrival: Comments: MH only UCTION MATERIAL HANDLER * Sarah Aguirre RN - 08/26/2024 7:04 PM CST Pt arrives with increased anxiety, pt was started on lexapro 3 weeks ago and hydroxyzine at needed. UCTION MATERIAL HANDLER * Sarah Russell RN - 08/26/2024 9:00 AM CST Pt feels anxiety has improved since taking oral medication UCTION MATERIAL HANDLER documented in this encounter Plan of Treatment [...] For 1 dose $Given 08/26/2024 7:35 PM PRODUCTION MATERIAL HANDLER 1 mg documented in this encounter Active and Recently Administered Medications Times are shown in PRODUCTION MATERIAL HANDLER. Scheduled Medication Order 08/24/2024 2024 08/26/2024 LORazepam (ATIVAN) tablet 1 mg (COMPLETED) 1 mg, Oral, ONCE, On Sat08/26/24 at 1935, For 1 dose 1934 ($Given - Provi liudmila: Sarah Russell RN) documented in this encounter Care Teams Enrobing Machine Operator Relationship Specialty Start Date End Date Clinic, [facility] Gar [address] [place] [address] PCP - General 08/23/24 documented as of this encounter
--- OUTSIDE RECORDS SUMMARY | 2024-09-07 22:00 | XMS_ITS | Encounter Summary ---
Author Organization [place] Address [address] [place] [address] Care Team Providers Care Pipe Coverer Helper Name Role Phone Clinic, [facility] Primary Care Pr ovider Encounter Details Date Type Department Care Team (Late st Contact Info) Description 08/27/2024 Telephone [facility] Services - Behavioral Service Line [address] [place] [phone] Caroline Peters Social History Tobacco Use [...] on file Legal Sex Female 4:22 AM JIG MILL OPERATOR Gender Identity Not on file Sexual Orientation Not on file documented as of this encounter Miscellaneous Notes * Telephone Encounter - Caroline Peters - 08/27/2024 9:05 AM CST Left a voice mail for patient in regard to mental health outpatient scheduling assistance and to call back to possibly reschedule appointments due to insurance. MILL OPERATOR documented in this encounter Plan of Treatment Not on file documented as of this encounter Visit Diagnoses Not on filedocumented in this encounter Care Teams Pipe Coverer Helper Relationship Specialty Start Date End Date Clinic, [facility] [address] [place] [address] PCP - General 08/23/24 documented as of this encounter
--- OUTSIDE RECORDS SUMMARY | 2024-09-07 22:00 | XMS_ITS | Encounter Summary ---
Author Organization [place] Address [address] [place] [address] Care Team Providers Care Billing Associate Name Role Phone [facility] Primary Care [...] on file Legal Sex Female 4:22 AM PILLAR WORKER Gender Identity Not on file Sexual Orientation Not on file documented as of this encounter Plan of Treatment Not on file documented as of this encounter Visit Diagnoses Not on filedocumented in this encounter Care Teams Billing Associate Relationship Specialty Start Date End Date [facility] [address] [facility] [place] [address] PCP - General 08/23/24 documented as of this encounter
--- OUTSIDE RECORDS SUMMARY | 2024-09-07 22:00 | XMS_ITS | Clinical Summary ---
Author Organization [place] Address [address] [place] [address] Care Team Providers Care Allocations Clerk Name Role Phone Clinic, [facility] Primary [...] Active Problems Problem Noted Date Diagnosed Date ORSE MARY (generalized anxiety disorder) 08/28/2024 Panic attack [...] Department Care Team Description 09/04/2024 7:39 PM CRIMINAL LEGAL ASSISTANT - 09/04/2024 11:48 PM [facility] Emergency Dept [address] [place] [address] Juarez Gonzalez MD Palpitations; Hypokalemia; Anxiety Discharge Disposition: Home or Self Care 09/04/2024 Travel 09/01/2024 Documentation Only [facility] [address] [phone] Tracey Whitley Advance Care Planning 08/31/2024 Telephone [facility] - Behavioral Service Line [address] [place] [phone] Kiki Chairez 08/28/2024 3:22 PM CRIMINAL LEGAL ASSISTANT - 08/28/2024 6:57 PM CRIMINAL LEGAL ASSISTANT Emergency [facility] Emergency Dept [address] [place] [address] [phone] Yvon Mack MD Generalized anxiety disorder with panic attacks Discharge Disposition: Home or Self Care 08/28/2024 Travel 08/27/2024 Telephone [facility] - Behavioral Service Line [address] [place] [phone] Caroline Peters 08/26/2024 7:06 PM CRIMINAL LEGAL ASSISTANT - 08/26/2024 11:00 PM [facility] Emergency [facility] Emergency Dept [address] [place] [address] [phone] Juarez Gonzalez MD ROSE MARY (generalized anxiety disorder); Generalized anxiety disorder with panic attacks Discharge Disposition: Home or Self Care 08/26/2024 Travel 08/24/2024 Documentation Only [facility] [address] [place] [phone] Tracey Whitley Advance Care Planning 08/23/2024 11:33 AM CRIMINAL LEGAL ASSISTANT - 08/23/2024 4:11 PM CRIMINAL LEGAL ASSISTANT Emergency [facility] Emergency Dept [address] [place] [address] [phone] Myles Murillo MD Anxiety about health; Anxiety [...] on file Legal Sex Female 4:22 AM CRIMINAL LEGAL ASSISTANT Gender Identity Not on file Sexual Orientation Not on file Last Filed Vital Signs Vital Sign Reading Time Taken Comments Blood Pressure 107/74 09/04/2024 11:45 PM CRIMINAL LEGAL ASSISTANT Pulse 64 09/04/2024 11:45 PM CRIMINAL LEGAL ASSISTANT Temperature 37.1 C (98.8 F) 09/04/2024 11:45 PM CRIMINAL LEGAL ASSISTANT Respiratory Rate 16 09/04/2024 11:45 PM CRIMINAL LEGAL ASSISTANT Oxygen Saturation 98% 09/04/2024 11:45 PM CRIMINAL LEGAL ASSISTANT Inhaled Oxygen Concentration - - Weight 79.9 kg (176 lb 2.4 oz) 09/04/2024 7:23 P M CRIMINAL LEGAL ASSISTANT Height 167.6 cm (5' 6) 09/04/2024 7:23 PM CRIMINAL LEGAL ASSISTANT Body Mass Index 28.43 09/04/2024 7:23 PM CRIMINAL LEGAL ASSISTANT Plan of Treatment Health Maintenance Due Date [...] CHEST 2 VIEWS STAT 09/04/2024 9:47 PM CRIMINAL LEGAL ASSISTANT D DIMER QUANTITATIVE STAT 09/04/2024 8:29 PM CRIMINAL LEGAL ASSISTANT CBC WITH PLATELETS & DIFFERENTIAL STAT 09/04/2024 7:39 PM CRIMINAL LEGAL ASSISTANT MAGNESIUM STAT 09/04/2024 7:39 PM CRIMINAL LEGAL ASSISTANT CBC WITH PLATELETS AND DIFFERENTIAL STAT 09/04/2024 7:39 PM CRIMINAL LEGAL ASSISTANT BASIC METABOLIC PANEL STAT 09/04/2024 7:39 PM CRIMINAL LEGAL ASSISTANT TROPONIN T, HIGH SENSITIVITY STAT 09/04/2024 7:39 PM CRIMINAL LEGAL ASSISTANT EKG 12-LEAD, TRACING ONLY STAT 09/04/2024 7:35 PM CRIMINAL LEGAL ASSISTANT EKG 12-LEAD, TRACING ONLY STAT 08/28/2024 5:30 PM CRIMINAL LEGAL ASSISTANT EKG 12-LEAD, TRACING ONLY STAT 08/23/2024 12:09 PM CRIMINAL LEGAL ASSISTANT HIV ANTIGEN ANTIBODY COMBO Routine 04/16/2018 HEPATITIS [...] XR Chest 2 Views (09/04/2024 9:47 PM CRIMINAL LEGAL ASSISTANT) Anatomical Region Laterality Modality Chest Digital Radiogra phy 09/04/2024 9:47 PM CRIMINAL LEGAL ASSISTANT Impressions 09/04/2024 10:30 PM CRIMINAL LEGAL ASSISTANT IMPRESSION: No evidence of active cardiopulmonary disease. Narrative 09/04/2024 10:30 PM CRIMINAL LEGAL ASSISTANT EXAM: CHEST 2 VIEWS LOCATION: [facility] DATE: 09/04/2024 INDICATION: Chest pain. COMPARISON: None. FINDINGS: The lungs are clear. Normal size cardiac silhouette. Procedure Note Khoi Mejia MD - 09/04/2024 EXAM: CHEST 2 VIEWS LOCATION: [facility] DATE: 09/04/2024 INDICATION: Chest pain. COMPARISON: None. FINDINGS: The lungs are clear. Normal size cardiac silhouette. IMPRESSION: No evidence of active cardiopulmonary disease. Juarez Gonzalez MD IMG DIAGNOSTIC IMAGING ORDERABLES Final Result * D dimer quantitative (09/04/2024 8:29 PM CRIMINAL LEGAL ASSISTANT) [facility] D-Dimer Quantitative <0.27 0.00 - 0.50 ug/mL FEU 09/04/2024 8:50 PM CRIMINAL LEGAL ASSISTANT LABORATORY Blood BLOOD SPECIMEN / Unknown Venipuncture / Unknown 09/04/2024 8:29 PM CRIMINAL LEGAL ASSISTANT 09/04/2024 8:33 PM CRIMINAL LEGAL ASSISTANT Narrative LABORATORY - 09/04/2024 8:50 PM CRIMINAL LEGAL ASSISTANT This D-dimer assay is intended for use in conjunction with a clinical pretest probability assessment model to exclude pulmonary embolism (PE) and deep venous thrombosis (DVT) in outpatients suspected of PE or DVT. The cut-off value is 0.50 ug/mL FEU. Juarez Gonzalez MD LAB - BLOOD ORDERABLES Final Result LABORATORY [facility] Acute Care Lab [address] [facility] Lab (1st floor, no room number) [place] [address], [facility] * CBC with platelets and differential (09/04/2024 7:39 PM CRIMINAL LEGAL ASSISTANT) [facility] WBC Count 7.5 4.0 - 11.0 10e3/uL 09/04/2024 7:59 PM CRIMINAL LEGAL ASSISTANT [facility] LABORATORY RBC Count 4.83 3.80 - 5.20 10e6/uL 09/04/2024 7:59 PM CRIMINAL LEGAL ASSISTANT [facility] Hemoglobin 14.0 11.7 - 15.7 g/dL 09/04/2024 7:59 PM CRIMINAL LEGAL ASSISTANT [facility] LAB[facility]ATORY Hematocrit 42.2 35.0 - 47.0 % 09/04/2024 7:59 PM CRIMINAL LEGAL ASSISTANT [facility] MCV 87 78 - 100 fL 09/04/2024 7:59 PM CRIMINAL LEGAL ASSISTANT [facility] LAB[facility] MCH 29.0 26.5 - 33.0 pg 09/04/2024 7:59 PM CRIMINAL LEGAL ASSISTANT [facility] LAB[facility]ATORY MCHC 33.2 31.5 - 36.5 g/dL 09/04/2024 7:59 PM CRIMINAL LEGAL ASSISTANT [facility] RDW 12.3 10.0 - 15.0 % 09/04/2024 7:59 PM CRIMINAL LEGAL ASSISTANT [facility]AT[facility] Platelet Count 242 150 - 450 10e3/uL 09/04/2024 7:59 PM CRIMINAL LEGAL ASSISTANT [facility] % Neutrophils 69 % 09/04/2024 7:59 PM CRIMINAL LEGAL ASSISTANT [facility] % Lymphocytes 23 % 09/04/2024 7:59 PM CRIMINAL LEGAL ASSISTANT [facility] % Monocytes 7 % 09/04/2024 7:59 PM CRIMINAL LEGAL ASSISTANT [facility] % Eosinophils 1 % 09/04/2024 7:59 PM CRIMINAL LEGAL ASSISTANT [facility] % Basophils 1 % 09/04/2024 7:59 PM CRIMINAL LEGAL ASSISTANT [facility] % Immature Granulocytes 0 % 09/04/2024 7:59 PM CRIMINAL LEGAL ASSISTANT [facility] NRBCs per 100 WBC 0 <1 /100 024 7:59 PM CRIMINAL LEGAL ASSISTANT [facility] LAB[facility] Absolute Neutrophils 5.2 1.6 - 8.3 10e3/uL 09/04/2024 7:59 PM CRIMINAL LEGAL ASSISTANT [facility] LAB[facility]AT[facility] Absolute Lymphocytes 1.7 0.8 - 5.3 10e3/uL 09/04/2024 7:59 PM CRIMINAL LEGAL ASSISTANT [facility] LAB[facility] Absolute Monocytes 0.5 0.0 - 1.3 10e3/uL 09/04/2024 7:59 PM CRIMINAL LEGAL ASSISTANT [facility] Absolute Eosinophils 0.1 0.0 - 0.7 10e3/uL 09/04/2024 7:59 PM CRIMINAL LEGAL ASSISTANT [facility] Absolute Basophils 0.0 0.0 - 0.2 10e3/uL 09/04/2024 7:59 PM CRIMINAL LEGAL ASSISTANT [facility] Absolute Immature Granulocytes 0.0 <=0.4 10e3/uL 09/04/2024 7:59 PM CRIMINAL LEGAL ASSISTANT LABORATORY Absolute NRBCs 0.0 10e3/uL 09/04/2024 7:59 PM CRIMINAL LEGAL ASSISTANT LABORATORY Blood STRUCTURE OF LEFT UPPER LIMB / Unknown Venipuncture / Unknown 09/04/2024 7:39 PM CRIMINAL LEGAL ASSISTANT 09/04/2024 7:56 PM CRIMINAL LEGAL ASSISTANT Juarez Gonzalez MD LAB - BLOOD ORDERABLES Final Result Performing Organization Address City/[facility]/ZIP Co de Phone Number [facility] Acute Care Lab [address] Lab (1st floor, no room number) [place] [address], [facility] * Troponin T, High Sensitivity (09/04/2024 7:39 PM CRIMINAL LEGAL ASSISTANT) [facility] Troponin T, High Sensitivity <6 <=14 ng/L 09/04/2024 8:23 PM CRIMINAL LEGAL ASSISTANT LABORATORY Comment: Either a High Sensitivity Troponin T baseline (0 hours) value = 100 ng/L, or an increase in High Sensitivity Troponin T = 7 ng/L at 2 hours compared to 0 hours (2-0 hours), suggests myocardial injury, and urgent clinical attention is required. If the 2-0 hours increase is <7 [...] Unknown Venipuncture / Unknown 09/04/2024 7:39 PM CRIMINAL LEGAL ASSISTANT 09/04/2024 7:56 PM CRIMINAL LEGAL ASSISTANT Juarez Gonzalez MD LAB - BLOOD ORDERABLES Final Result [facility] Acute Care Lab [address] Lab (1st floor, no room number) [place] [address], [facility] * Magnesium (09/04/2024 7:39 PM CRIMINAL LEGAL ASSISTANT) Magnesium 2.2 1.7 - 2.3 mg/dL 09/04/2024 8:31 PM CRIMINAL LEGAL ASSISTANT LABORATORY Blood STRUCTURE OF LEFT UPPER LIMB / Unknown Venipuncture / Unknown 09/04/2024 7:39 PM CRIMINAL LEGAL ASSISTANT 09/04/2024 7:56 PM CRIMINAL LEGAL ASSISTANT Juarez Gonzalez MD LAB - BLOOD ORDERABLES Final Result [facility] LABORATORY [facility] Acute Care Lab [address] [facility] Lab (1st floor, no room number) [place] [address], [facility] * (ABNORMAL) Basic metabolic panel (BMP) (09/04/2024 7:39 PM CRIMINAL LEGAL ASSISTANT) Sodium 139 135 - 145 mmol/L 09/04/2024 8:23 PM [facility] Potassium 3.4 3.4 - 5.3 mmol/L 09/04/2024 8:23 PM [facility] Chloride 104 98 - 107 mmol/L 09/04/2024 8:23 PM [facility] Carbon Dioxide (CO2) 23 22 - 29 mmol/L 09/04/2024 8:23 PM [facility] Anion Gap 12 7 - 15 mmol/L 09/04/2024 8:23 PM [facility] Urea Nitrogen 7.2 6.0 - 20.0 mg/dL 09/04/2024 8:23 PM [facility] Creatinine 0.72 0.51 - 0.95 mg/dL 09/04/2024 8:23 PM [facility] GFR Estimate >90 >60 mL/min/1.7 3m2 09/04/2024 8:23 PM [facility] Comment:eGFR calculated usin 2020 CKD-EPI equation. Calcium 9.6 8.8 - 10.4 mg/dL 09/04/2024 8:23 PM [facility] Comment:Reference intervals for this test were updated on 05/05/2024 to reflect our healthy population more accurately. There may be differences in the flagging of prior results with similar values performed with this method. Those prior results can be interpreted in the context of the updated reference intervals. Glucose 112(H) 70 - 99 mg/dL 09/04/2024 8:23 PM CRIMINAL LEGAL ASSISTANT LABORATORY Blood STRUCTURE OF LEFT UPPER LIMB / Unknown Venipuncture / Unknown 09/04/2024 7:39 PM CRIMINAL LEGAL ASSISTANT 09/04/2024 7:56 PM CRIMINAL LEGAL ASSISTANT us Juarez Gonzalez MD LAB - BLOOD ORDERABLES Final Result RH LABORATORY [facility] Lab [address] Lab (1st floor, no room number) [place] [address] * EKG 12 lead (09/04/2024 7:35 PM CRIMINAL LEGAL ASSISTANT) Only the most recent of3 resultswithin the time period is included. Systolic Blood Pressure mmHg RADIOLOGY RESULTS Diastolic Blood Pressure mmHg RADIOLOGY RESULTS Ventricular Rate 76 BPM RAD IOLOGY RESULTS Atrial Rate 76 BPM RADIOLOG Y RESULTS ID Interval 124 ms RADIOLOG Y RESULTS QRS Duration 86 ms RADIOLO GY RESULTS QT 362 ms RADIOLOGY RESULTS QTc 407 ms RADIOLOGY RESULTS P [place] 45 degrees RADIOLOGY RESULTS R AXIS 81 degrees RADIOLOGY RESULTS T [place] -17 degrees RADIOLOGY RESULTS Interpretation ECG Sinus rhythm with sinus arrhythmia ST & T wave abnormality, consider inferior ischemia ST & T wave abnormality, consider anterior ischemia Abnormal ECG When compared with ECG of 28-Aug-2024 17:30, ST now depressed in Inferior leads Non-specific change in ST segment in Anterior leads T wave inversion now evident in Inferior leads T wave inversion now evident in Anterior leads Confirmed by - EMERGENCY ROOM, PHYSICIAN ([id number]), desk editor ILEANA KYLE (Mundo) on 09/07/2024 7:08:49 AM RADIOLOGY RESULTS 09/04/2024 7:35 PM CRIMINAL LEGAL ASSISTANT 09/07/2024 7:08 AM CRIMINAL LEGAL ASSISTANT us Juarez Gonzalez MD ECG ORDERABLES Edited Result - Final RADIOLOGY RESULTS * HIV Antigen Antibody Combo (04/16/2018) HIV Antigen Antibody Combo negative Blood specimen (specimen) us Patient Reported LAB - BLOOD ORDERABLES Final Re sult * Hepatitis C antibody (08/18/2014 9:29 AM CDT) Hepatitis C Antibody Negative [facility]G [facility] Blood specimen (specimen) 08/18/2014 9:29 AM CDT 08/18/2014 9:32 AM CDT Wiliam Lagunas PA-C LAB - BLOOD ORDERABL ES Final Result [facility] [address] * PAP imaged thin layer, screen (08/18/2014 12:00 AM CDT) PAP NIRMALA Zaldivar Report Patient Name: TURNER TIDWELL MR#: [id number] Specimen #: [id number] Collected: 08/18/2014 Received: 08/19/2014 Reported: 08/24/2014 12:44 Ordering Phy(s): WILIAM LAGUNAS SPECIMEN/STAIN PROCESS: Pap imaged thin layer prep screening (Surepath, FocalPoint with guided screening) Pap-Cyto x 1 SOURCE: Cervical, endocervical Pap imaged thin layer prep screening (Surepath, FocalPoint with guided screening) SPECIMEN ADEQUACY: Satisfactory for evaluation. -Transformation zone component present. CYTOLOGIC INTERPRETATION: Negative for Intraepithelial Lesion or Malignancy Organism(s): -Shift in satinder suggestive of bacterial vaginosis. Electronically signed out by: SARAH Vieyra ( ASCP) Processed and screened at [facility] CLINICAL HISTORY: LMP: 08/09/2014 Previous normal pap Date of Last Pap: 04/10/2012 Previous abnormal pap: lgsil, Papanicolaou Test Limitations: Cervical cytology is a screening test with limited sensitivity; regular screening is critical for cancer prevention; Pap tests are primarily effective for the diagnosis/preventi on of squamous cell carcinoma, not adenocarcinomas or other cancers. TESTING LAB LOCATION: [facility] [place] [address] COLLECTION SITE: Client: [facility] Location: [facility] (R) COPATH Cytologic material (specimen) 08/18/2014 08/19/2014 11:48 AM CDT Wiliam Lagunas PA-C LAB - [facility] SPECIMEN Final Result COPATH from Last 3 Months or Most Recently Relevant to Health Maintenance Care Teams Allocations Clerk Relationship Specialty Start Date End Date Clinic, [facility] [place] [address] [place] [address] PCP - General 08/23/24
--- OUTSIDE RECORDS SUMMARY | 2024-09-07 22:00 | XMS_ITS | Encounter Summary ---
Author Organization [place] Address [address] [place] [address] Care Team Providers Care Machine Operator Name Role Phone [facility] Pr ov[facility] Reason for Referral * CV Cardio consult (Routine: Next available opening) - Pending Review Specialty Diagnoses / Procedures Referred By Contact Referred To Contact Cardiovascular Disease Diagnoses Palpitations Hypokalemia Juarez Gonzalez MD [facility] [address] [facility] [address] [address] Phone: tel: fax: Referral ID Status Reason Start Date Expiration Date V isits Requested Visits Authorized [id number] Pending Review 09/04/2024 09/04/2025 1 1 Question Answer Reason for Consult: General Cardiology Patient Scheduling Instructions: [facility] will call you to coordinate your care as prescribed by your provider. If you don't hear from a printing supplies sales representative within 2 business days, please call [phone]. Comments Please be aware that coverage of these services is subject to the terms and limitations of your health insurance plan. Call member services at your health plan with any benefit or coverage questions. [facility] will call you to coordinate your care as prescribed by your provider. If you don't hear from a printing supplies sales representative within 2 business days, please call [phone]. ARY MEDIA ASSISTANT Reason for Visit * Reason Comments Shortness of Breath Tachycardia Encounter Details Date Type Department Care Team (Late st Contact Info) Description 09/04/2024 7:39 PM LIBRARY MEDIA ASSISTANT - 09/04/2024 11:48 PM LIBRARY MEDIA ASSISTANT Emergency [facility] Emergency Dept [address] [place] [address] Juarez Gonzalez MD [facility] [address] [place] [address] Palpitations; Hypokalemia; Anxiety Discharge Disposition: Home or [...] on file Legal Sex Female 4:22 AM LIBRARY MEDIA ASSISTANT Gender Identity Not on file Sexual Orientation Not on file documented as of this encounter Last Filed Vital Signs Vital Sign Reading Time Taken Comments Blood Pressure 107/74 09/04/2024 11:45 PM LIBRARY MEDIA ASSISTANT Pulse 64 09/04/2024 11:45 PM LIBRARY MEDIA ASSISTANT Temperature 37.1 C (98.8 F) 09/04/2024 11:45 PM LIBRARY MEDIA ASSISTANT Respiratory Rate 16 09/04/2024 11:45 PM LIBRARY MEDIA ASSISTANT Oxygen Saturation 98% 09/04/2024 11:45 PM LIBRARY MEDIA ASSISTANT Inhaled Oxygen Concentration - - Weight 79.9 kg (176 lb 2.4 oz) 09/04/2024 7:23 P M LIBRARY MEDIA ASSISTANT Height 167.6 cm (5' 6) 09/04/2024 7:23 PM LIBRARY MEDIA ASSISTANT Body Mass Index 28.43 09/04/2024 7:23 PM LIBRARY MEDIA ASSISTANT documented in this encounter Discharge Instructions * Discharge Instructions* Juarez Gonzalez MD - 09/04/2024 11:04 PM LIBRARY MEDIA ASSISTANT Return to ER immediately if you develop: worsening symptoms, Fever > 101, persistent nausea or vomiting OR you have any other concerns about your health. ARY MEDIA ASSISTANT documented in this encounter Medications at Time [...] 11:47 PM CST Pt discharged home by song writer. Pt looks well. Given AVS and all VSS. Pt left amb with good gait to exit. Agreeable to plan of care. ARY MEDIA ASSISTANT * Juarez Gonzalez MD - 09/04/2024 7:45 [...] Hydroxyzine Propranolol Rizatriptan Surgical History section D&C Mitchells teeth Physical Exam Patient Vitals for the [...] abnormality, consider anterior ischemia Rate 76 bpm. DE interval 124 ms. QRS duration 86 ms. [...] Documentation None Medical Decision Making / Diagnosis [facility] Diagnoses: None MIPS None MDM Kacey Hines [...] times daily for 3 days. Scribe Disclosure: Joyce Poole, am serving as a scribe at 7:45 PM on 09/04/2024 to document services personally performed by Juarez Gonzalez MD based on my observations and the provider's statements tome. Juarez Gonzalez MD 09/04/24 0540 ARY MEDIA ASSISTANT * Jillian Tuttle RN - 09/04/2024 7:26 [...] WDL WDL Cognitive/Neuro/Behavioral WDL Cognitive/Neuro/Behavioral WDL WDL ARY MEDIA ASSISTANT documented in this encounter Plan of Treatment Scheduled Referrals Name Type Priority Associated Diagnoses Orde r Schedule Adult Cardiology Eval Source Water Protection Specialist Referral Referral Routine: Next available opening Palpitations Hypokalemia Expected: 09/04/2024 (Approximate), Expires: 09/04/2025 documented as of this encounter Procedures Procedure Name Priority Date/Time Associated Diagnosis Comments XR CHEST 2 VIEWS STAT 09/04/2024 9:47 PM LIBRARY MEDIA ASSISTANT D DIMER QUANTITATIVE STAT 09/04/2024 8:29 PM LIBRARY MEDIA ASSISTANT CBC WITH PLATELETS AND DIFFERENTIAL STAT 09/04/2024 7:39 PM LIBRARY MEDIA ASSISTANT TROPONIN T, HIGH SENSITIVITY STAT 09/04/2024 7:39 PM LIBRARY MEDIA ASSISTANT CBC WITH PLATELETS & DIFFERENTIAL STAT 09/04/2024 7:39 PM LIBRARY MEDIA ASSISTANT MAGNESIUM STAT 09/04/2024 7:39 PM LIBRARY MEDIA ASSISTANT BASIC METABOLIC PANEL STAT 09/04/2024 7:39 PM LIBRARY MEDIA ASSISTANT EKG 12-LEAD, TRACING ONLY STAT 09/04/2024 7:35 PM LIBRARY MEDIA ASSISTANT documented in this encounter Results * XR Chest 2 Views (09/04/2024 9:47 PM LIBRARY MEDIA ASSISTANT) Anatomical Region Laterality Modality Chest Digital Radiogra phy 09/04/2024 9:47 PM LIBRARY MEDIA ASSISTANT Impressions 09/04/2024 10:30 PM LIBRARY MEDIA ASSISTANT IMPRESSION: No evidence of active cardiopulmonary disease. Narrative 09/04/2024 10:30 PM LIBRARY MEDIA ASSISTANT EXAM: CHEST 2 VIEWS LOCATION: [facility] DATE: 09/04/2024 INDICATION: Chest pain. COMPARISON: None. FINDINGS: The lungs are clear. Normal size cardiac silhouette. Procedure Note Khoi Mejia MD - 09/04/2024 EXAM: CHEST 2 VIEWS LOCATION: [facility] DATE: 09/04/2024 INDICATION: Chest pain. COMPARISON: None. FINDINGS: The lungs are clear. Normal size cardiac silhouette. IMPRESSION: No evidence of active cardiopulmonary disease. us Juarez Gonzalez MD IMG DIAGNOSTIC IMAGING ORDERABLES Final Result * D dimer quantitative (09/04/2024 8:29 PM LIBRARY MEDIA ASSISTANT) D-Dimer Quantitative <0.27 0.00 - 0.50 ug/mL FEU 09/04/2024 8:50 PM LIBRARY MEDIA ASSISTANT [facility] Blood BLOOD SPECIMEN / Unknown Venipuncture / Unknown 09/04/2024 8:29 PM LIBRARY MEDIA ASSISTANT 09/04/2024 8:33 PM LIBRARY MEDIA ASSISTANT Narrative [facility] - 09/04/2024 8:50 PM LIBRARY MEDIA ASSISTANT This D-dimer assay is intended for use in conjunction with a clinical pretest probability assessment model to exclude pulmonary embolism (PE) and deep venous thrombosis (DVT) in outpatients suspected of PE or DVT. The cut-off value is 0.50 ug/mL FEU. Juarez Gonzalez MD LAB - BLOOD ORDERABLES Final Result LABORATORY [facility] [email or web address] (1st floor, no room number) [address] * Magnesium (09/04/2024 7:39 PM LIBRARY MEDIA ASSISTANT) Magnesium 2.2 1.7 - 2.3 mg/dL 09/04/2024 8:31 PM LIBRARY MEDIA ASSISTANT [facility] Blood STRUCTURE OF LEFT UPPER LIMB / Unknown Venipuncture / Unknown 09/04/2024 7:39 PM LIBRARY MEDIA ASSISTANT 09/04/2024 7:56 PM LIBRARY MEDIA ASSISTANT Juarez Gonzalez MD LAB - BLOOD ORDERABLES Final Result Performing Organization Address City/[facility]/ZIP Co de Phone Number LABORATORY [facility] [address] Lab (1st floor, no room number) [address] * CBC with platelets and differential (09/04/2024 7:39 PM LIBRARY MEDIA ASSISTANT) WBC Count 7.5 4.0 - 11.0 10e3/uL 09/04/2024 7:59 PM LIBRARY MEDIA ASSISTANT [facility] RBC Count 4.83 3.80 - 5.20 10e6/uL 09/04/2024 7:59 PM LIBRARY MEDIA ASSISTANT [facility] Hemoglobin 14.0 11.7 - 15.7 g/dL 09/04/2024 7:59 PM LIBRARY MEDIA ASSISTANT [facility] Hematocrit 42.2 35.0 - 47.0 % 09/04/2024 7:59 PM LIBRARY MEDIA ASSISTANT [facility] MCV 87 78 - 100 fL 09/04/2024 7:59 PM LIBRARY MEDIA ASSISTANT [facility] MCH 29.0 26.5 - 33.0 pg 09/04/2024 7:59 PM LIBRARY MEDIA ASSISTANT [facility] MCHC 33.2 31.5 - 36.5 g/dL 09/04/2024 7:59 PM LIBRARY MEDIA ASSISTANT [facility] RDW 12.3 10.0 - 15.0 % 09/04/2024 7:59 PM LIBRARY MEDIA ASSISTANT [facility] Platelet Count 242 150 - 450 10e3/uL 09/04/2024 7:59 PM LIBRARY MEDIA ASSISTANT [facility] % Neutrophils 69 % 09/04/2024 7:59 PM LIBRARY MEDIA ASSISTANT [facility] % Lymphocytes 23 % 09/04/2024 7:59 PM LIBRARY MEDIA ASSISTANT [facility] % Monocytes 7 % 09/04/2024 7:59 PM LIBRARY MEDIA ASSISTANT [facility] % Eosinophils 1 % 09/04/2024 7:59 PM LIBRARY MEDIA ASSISTANT [facility] % Basophils 1 % 09/04/2024 7:59 PM LIBRARY MEDIA ASSISTANT [facility] % Immature Granulocytes 0 % 09/04/2024 7:59 PM LIBRARY MEDIA ASSISTANT [facility] NRBCs per 100 WBC 0 <1 /100 024 7:59 PM LIBRARY MEDIA ASSISTANT [facility] Absolute Neutrophils 5.2 1.6 - 8.3 10e3/uL 09/04/2024 7:59 PM LIBRARY MEDIA ASSISTANT [facility] Absolute Lymphocytes 1.7 0.8 - 5.3 10e3/uL 09/04/2024 7:59 PM LIBRARY MEDIA ASSISTANT [facility] Absolute Monocytes 0.5 0.0 - 1.3 10e3/uL 09/04/2024 7:59 PM LIBRARY MEDIA ASSISTANT [facility] Absolute Eosinophils 0.1 0.0 - 0.7 10e3/uL 09/04/2024 7:59 PM LIBRARY MEDIA ASSISTANT [facility] Absolute Basophils 0.0 0.0 - 0.2 10e3/uL 09/04/2024 7:59 PM LIBRARY MEDIA ASSISTANT [facility] Absolute Immature Granulocytes 0.0 <=0.4 10e3/uL 09/04/2024 7:59 PM LIBRARY MEDIA ASSISTANT [facility] Absolute NRBCs 0.0 10e3/uL 09/04/2024 7:59 PM LIBRARY MEDIA ASSISTANT [facility] Blood STRUCTURE OF LEFT UPPER LIMB / Unknown Venipuncture / Unknown 09/04/2024 7:39 PM LIBRARY MEDIA ASSISTANT 09/04/2024 7:56 PM LIBRARY MEDIA ASSISTANT us Juarez Gonzalez MD LAB - BLOOD ORDERABLES Final Result [facility] [address] Lab (1st floor, no room number) [place] [id number] * (ABNORMAL) Basic metabolic panel (BMP) (09/04/2024 7:39 PM LIBRARY MEDIA ASSISTANT) Sodium 139 135 - 145 mmol/L 09/04/2024 8:23 PM LIBRARY MEDIA ASSISTANT LABORATORY Potassium 3.4 3.4 - 5.3 mmol/L 09/04/2024 8:23 PM LIBRARY MEDIA ASSISTANT LABORATORY Chloride 104 98 - 107 mmol/L 09/04/2024 8:23 PM LIBRARY MEDIA ASSISTANT LABORATORY Carbon Dioxide (CO2) 23 22 - 29 mmol/L 09/04/2024 8:23 PM LIBRARY MEDIA ASSISTANT LABORATORY Anion Gap 12 7 - 15 mmol/L 09/04/2024 8:23 PM LIBRARY MEDIA ASSISTANT LABORATORY Urea Nitrogen 7.2 6.0 - 20.0 mg/dL 09/04/2024 8:23 PM LIBRARY MEDIA ASSISTANT LABORATORY Creatinine 0.72 0.51 - 0.95 mg/dL 09/04/2024 8:23 PM LIBRARY MEDIA ASSISTANT LABORATORY GFR Estimate >90 >60 mL/min/1.7 3m2 09/04/2024 8:23 PM LIBRARY MEDIA ASSISTANT LABORATORY Comment:eGFR calculated usin g 2020 CKD-EPI equation. Calcium 9.6 8.8 - 10.4 mg/dL 09/04/2024 8:23 PM [facility] Comment:Reference intervals for this test were updated on 05/05/2024 to reflect our healthy population more accurately. There may be differences in the flagging of prior results with similar values performed with this method. Those prior results can be interpreted in the context of the updated reference intervals. Glucose 112(H) 70 - 99 mg/dL 09/04/2024 8:23 PM LIBRARY MEDIA ASSISTANT LABORATORY Blood STRUCTURE OF LEFT UPPER LIMB / Unknown Venipuncture / Unknown 09/04/2024 7:39 PM LIBRARY MEDIA ASSISTANT 09/04/2024 7:56 PM LIBRARY MEDIA ASSISTANT us Juarez Gonzalez MD LAB - BLOOD ORDERABLES Final Result LABORATORY [facility] [address] Lab (1st floor, no room number) [place] [address], [facility] * Troponin T, High Sensitivity (09/04/2024 7:39 PM LIBRARY MEDIA ASSISTANT) Pathologist [facility] Troponin T, High Sensitivity <6 <=14 ng/L 09/04/2024 8:23 PM LIBRARY MEDIA ASSISTANT LABORATORY Comment: Either a High Sensitivity [...] Unknown Venipuncture / Unknown 09/04/2024 7:39 PM LIBRARY MEDIA ASSISTANT 09/04/2024 7:56 PM LIBRARY MEDIA ASSISTANT us Juarez Gonzalez MD LAB - BLOOD ORDERABLES Final Result [facility] [address] [facility] Lab (1st floor, no room number) [place] [address], [facility] * EKG 12 lead (09/04/2024 7:35 PM LIBRARY MEDIA ASSISTANT) Pathologist [facility] Systolic Blood Pressure mmHg RADIOLOGY RESULTS Diastolic Blood Pressure mmHg RADIOLOGY RESULTS Ventricular Rate 76 BPM RAD IOLOGY RESULTS Atrial Rate 76 BPM RADIOLOG Y RESULTS DE Interval 124 ms RADIOLOG Y RESULTS QRS Duration 86 ms RADIOLO GY RESULTS QT 362 ms RADIOLOGY RESULTS QTc 407 ms RADIOLOGY RESULTS P [place] 45 degrees RADIOLOGY RESULTS R AXIS 81 degrees RADIOLOGY RESULTS T [place] -17 degrees RADIOLOGY RESULTS Interpretation ECG Sinus [...] Confirmed by - EMERGENCY ROOM, PHYSICIAN ([id number]), tape editor ILEANA KYLE ([id number]) on 09/07/2024 7:08:49 AM RADIOLOGY RESULTS 09/04/2024 7:35 PM LIBRARY MEDIA ASSISTANT 09/07/2024 7:08 AM LIBRARY MEDIA ASSISTANT us Juarez Gonzalez MD ECG ORDERABLES [...] On Sat09/04/24 at 2014, For 1 dose $New Bag 09/04/2024 8:29 PM LIBRARY MEDIA ASSISTANT 1,000 mLs 1000 mL/hr potassium chloride sri ER (KLOR-CON M20) CR tablet 40 mEq 40 mEq, Oral, ONCE, On Sat09/04/24 at 2029, For 1 dose, DO NOT CRUSH $Given 09/04/2024 8:43 PM LIBRARY MEDIA ASSISTANT 40 mEq documented in this encounter Active and Recently Administered Medications Times are shown in LIBRARY MEDIA ASSISTANT. Scheduled Medication Order 09/02/2024 09/03/2024 09/04/2024 lactated ringers BOLUS 1,000 mL (COMPLETED) Intravenous, 1,000 mL, ONCE, at 1,000 mL/hr, Administer over 1 Hours, On Sat09/04/24 at 2014, For 1 dose 2028 ($New Bag - Pro vider: Jillian Travis, SANCHO)2338 (Stopped - Provider: Jillian Travis RN) potassium chloride sri ER (KLOR-CON M20) CR tablet 40 mEq (COMPLETED) 40 mEq, Oral, ONCE, On Sat09/04/24 at 2029, For 1 dose, DO NOT CRUSH 2042 ($Given - Provi liudmila: Jillian Travis, SANCHO) documented in this encounter Care Teams Machine Operator Relationship Specialty Start Date End Date [facility], [facility] [address] [place] [address] PCP - General 08/23/24 documented as of this encounter
--- OUTSIDE RECORDS SUMMARY | 2024-09-07 22:00 | XMS_ITS | Encounter Summary ---
Author Organization [place] Address [address] [place] [address] Care Team Providers Care Power Nut Runner Operator Name Role Phone Eileen Vaughn PA-C Primary Care Provid er [facility], [facility] Primary Care Pro vider [facility], [facility] Primary Care Pr ovider Encounter Details Date Type Department Care Team (Late st Contact Info) Description 07/31/2013 [facility] [address] [address] [place] Social History Tobacco Use Types Packs/Day Years Used Date Smoking Tobacco: Every Day Cigarettes 0.5 1 Smokeless Tobacco: Never Alcohol Use Standard Drinks/Week Comments No 0 (1 standard drink = 0.6 oz pur e alcohol) Comments No Sex and Gender Information Value Date Recorded Sex Assigned at Not on file Legal Sex Female 4:22 AM EMERGENCY ROOM ORDERLY Gender Identity Not on file Sexual Orientation Not on file documented as of this encounter Plan of Treatment Not on file documented as of this encounter Visit Diagnoses Not on filedocumented in this encounter Care Teams Power Nut Runner Operator Relationship Specialty Start Date End Date Eileen Vaughn PA-C [address] [place] [address] [place] [address] PCP - General Family Practice 12/07/10 08/08/23 [facility], [facility] [address] [place] [address] PCP - General 08/09/23 08/22/24 Clinic, [facility] [address] [place] [address] PCP - General 08/23/24 documented as of this encounter
--- OUTSIDE RECORDS SUMMARY | 2024-09-07 22:00 | XMS_ITS | Encounter Summary ---
Author Organization [employer] Address [address] [place] [address] Care Team Providers Care Trailer Driver Name Role Phone Margot Huang PA-C Primary Care Provider [phone] Encounter Details Date Type Department Care Team (Late Contact Info) Description 10/15/2017 Correspondence External to External, [place] [address] NOTICE OF NON COVERED SERVICE Social History [...] (Late Contact Info) Description 09/08/2024 4:30 PM MATERIALS ASSOCIATE [facility] [address] [place] [address] Rosa Maria Phillips MD [address] [place], [place] [id number] documented as of this encounter Visit Diagnoses Not on filedocumented in this encounter Additional Health Concerns Infection Onset Date Last Indicated Resolved Time R/O COVID19 05/20/2020 05/20/2020 05/27/2020 3:18 AM CDT documented as of this encounter Care Teams Trailer Driver Relationship Specialty Start Date End Date Margot Huang PA-C [address] [place] [address] PCP - General Physician Fork Lift Truck Operator 11/13/16 documented as of this encounter
--- OUTSIDE RECORDS SUMMARY | 2024-09-07 22:00 | XMS_ITS | Encounter Summary ---
Author Organization [facility] Address [address] [place] [address] Care Team Providers Care Cable Layer Name Role Phone [facility], [facility] Pr ovider Reason for Visit * Reason Comments Panic Attack Shortness of Breath Encounter Details Date Type Department Care Team (Late st Contact Info) Description 08/23/2024 11:33 AM ASSISTANT TO THE DIRECTOR - 08/23/2024 4:11 PM ASSISTANT TO THE DIRECTOR Emergency [facility] Emergency Dept [address] [place] [address] Myles Murillo MD Anxiety about health; Anxiety [...] on file Legal Sex Female 4:22 AM ASSISTANT TO THE DIRECTOR Gender Identity Not on file Sexual Orientation Not on file documented as of this encounter Last Filed Vital Signs Vital Sign Reading Time Taken Comments Blood Pressure 130/88 08/23/2024 4:10 PM ASSISTANT TO THE DIRECTOR Pulse 90 08/23/2024 4:10 PM ASSISTANT TO THE DIRECTOR Temperature 36.7 C (98.1 F) 08/23/2024 11:30 AM ASSISTANT TO THE DIRECTOR Respiratory Rate 18 08/23/2024 4:10 PM ASSISTANT TO THE DIRECTOR Oxygen Saturation 100% 08/23/2024 4:10 PM ASSISTANT TO THE DIRECTOR Inhaled Oxygen Concentration - - Weight 81.3 kg (179 lb 3.7 oz) 08/23/2024 11:30 AM ASSISTANT TO THE DIRECTOR Height 167.6 cm (5' 6) 08/23/2024 11:30 AM ASSISTANT TO THE DIRECTOR Body Mass Index 28.93 08/23/2024 11:30 AM ASSISTANT TO THE DIRECTOR documented in this encounter Discharge Instructions * Discharge Instructions* Myles Murillo MD - 08/23/2024 3:35 PM ASSISTANT TO THE DIRECTOR Aftercare Plan Follow up with your primary care provider: 09/08/14 4:15PM Rosa Maria Phillips MD [facility] [address] [facility] [address] > Schedule appointment for psychiatric medication [facility] [address] [place] [address] [email or web address] > Keep your therapy appointment tomorrow Saturday08/24/24 4:00PM Swati Murray MSW, [facility] [address] [place] [address] SEE ADDITIONAL PAGE FOR YOUR PERSONALIZED SAFETY PLAN If I am feeling unsafe or I am in a crisis, I will: Contact my established care providers Call the [facility] 988 Go to the nearest emergency room Call 911 [facility] has a mental health crisis team you can call 13/05: [facility] [phone] Crisis Text Line Text [phone] You will be connected with a trained live crisis counselor to provide support. Por espanol, texto TERRIE a [phone] o texto a 442-AYUDAME en [facility] Mental Health Warm Line Peer to peer support Saturday thru Saturday, 12 pm to 10 pm [phone] or [place] [address] National [place] on Mental Illness (ALO) 020.791.6329 or 1.888.ALO.HELPS Mental Health Apps My3 https://[email or web address]/ VirtualHopeBox [email or web address]-[email or web address]/ Additional Information Today you were seen by a licensed mental health professional through Triage and Transition services, [facility] ([facility]) for a crisis assessment in the Emergency Department at [facility]. It is recommended that you follow up with your established providers (psychiatrist, mental health therapist, and/or primary care doctor - as relevant) as soon as possible. Coordinators from [facility] will be calling you in the next 24-48 hours to ensure that you have the resources you need. You can also contact [facility] coordinators directly at [phone]. You may have been scheduled for or offered an appointment with a mental health provider. [facility] maintains an extensive network of licensed [facility] health providers to connect patients with [...] today. At any time, you can call 1 and return to the Emergency Department for [...] you enjoy. If you feel worse, contact 1-075-HDYMCBC ( ), or call 911, or your [...] if there is anything that worries you. STANT TO THE DIRECTOR STANT TO THE DIRECTOR STANT TO THE DIRECTOR STANT TO THE DIRECTOR STANT TO THE DIRECTOR STANT TO THE DIRECTOR * Attachments The following attachments cannot be sent through Care Everywhere. * Anxiety: Treatment Options: Video (Moroccan) documented in this encounter Medications at Time [...] Annemarie Morales - 08/23/2024 4:11 PM CST Boat Engines Installer faxed DEC Consult, ANDREW, and facesheet to [facility] per saud Fofana ask. Boat Engines Installer called and updated the county on referral made. [phone] JORGE Cristobal/ [phone] STANT TO THE DIRECTOR documented in this encounter Consult Notes * Ct Maldonado LPC, LAD - 08/23/2024 2:00 PM CST Diagnostic Evaluation Consultation Crisis Assessment Patient Name: Kacey Hines Age: [age] year old Legal Sex: female Gender Identity: female Pronouns: she/her Race: White Ethnicity: Not or Language: Moroccan Patient was assessed: In person Crisis Assessment Start Date: 08/23/24 Crisis Assessment Start Time: 1428 Crisis Assessment Stop Time: 1502 (plus [phone]) Patient location: [facility] EMERGENCY DEPT ED05 Referral Data [...] pt's boyfriend. Pt's boyfriend was present at [facility] during the interview, per pt's [...] part in safety/aftercare planning: yes Risk Assessment [place] Suicide Severity Rating Scale Full Clinical Version: Suicidal Ideation Q1 Wish to be (Lifetime): No Q2 Non-Specific Active Suicidal Thoughts (Lifetime): No Q6 Suicide Behavior (Lifetime): no Suicidal Behavior (Lifetime) Actual Attempt (Lifetime): No Has subject engaged in non-suicidal self-injurious behavior? (Lifetime): No Interrupted Attempts (Lifetime): No Aborted or Self-Interrupted Attempt (Lifetime): No Preparatory Acts or Behavior (Lifetime): No [place] Suicide Severity Rating Scale Recent: Suicidal Ideation [...] aftercare planning by ED care team and LM, and inconsultation with attending provider, the patient's [...] ANDREW for referral to follow up with [facility] crisis stabilization services. Disposition Recommended disposition: Individual Therapy, Medication Management, Other. please comment ([facility]erral[facility] crisis [facility]) Reviewed case and recommendations with attending provider. Attending Name: Myles Murillo MD Attending concurs with disposition: yes Patient and/or validated legal guardian concurs with disposition: yes Final disposition: discharge Legal status on admission: Voluntary/Patient has signed consent for treatment Assessment Details Total duration spent with the patient: 34 min CPT code(s) utilized: 67321 - Psychotherapy for Crisis - 60 (30-74*) min CT MALDONADO M.Ed., [facility], [facility] Licensed Mental Health Professional Triage and Transition Services - SEP [phone] Maldonado LPCC, [facility] at 08/23/2024 7:15 PM ASSISTANT TO THE DIRECTOR documented in this encounter ED Notes * Katie Rodriguez RN - 08/23/2024 12:02 PM CST at bedside STANT TO THE DIRECTOR * Myles Muirllo MD - 08/23/2024 11:56 AM CST Emergency [...] SECTION; Surgeon: Caroline Escamilla MD; Location: L+D [facility] D&C 11/2017 wisdom teeth Physical Exam [...] rhythm with sinus arrhythmia Rate 70 bpm. ND interval 118 ms. QRS duration 80 ms. [...] Documentation None Medical Decision Making / Diagnosis CMS Diagnoses: None MIPS None [facility] Kacey Hines is a 33 year old [...] to me. Myles Murillo MD 08/25/24 1031 STANT TO THE DIRECTOR * Katie Rodriguez RN - 08/23/2024 11:50 [...] in place. DEC ordered to see pt. STANT TO THE DIRECTOR * Zehra Win RN - 08/23/2024 11:31 [...] is different. Pt states she has stressors. STANT TO THE DIRECTOR documented in this encounter Plan of Treatment Not on file documented as of this encounter Procedures Procedure Name Priority Date/Time Associated Diagnosis Comments EKG 12-LEAD, TRACING ONLY STAT 08/23/2024 12:09 PM ASSISTANT TO THE DIRECTOR documented in this encounter Results * EKG 12-lead, tracing only (08/23/2024 12:09 PM ASSISTANT TO THE DIRECTOR) Systolic Blood Pressure mmHg RADIOLOGY RESULTS Diastolic Blood Pressure mmHg RADIOLOGY RESULTS Ventricular Rate 70 BPM RAD IOLOGY RESULTS Atrial Rate 70 BPM RADIOLOG Y RESULTS ND Interval 118 ms RADIOLOG Y RESULTS QRS Duration 80 ms RADIOLO GY RESULTS QT 398 ms RADIOLOGY RESULTS QTc 429 ms RADIOLOGY RESULTS P [place] 31 degrees RADIOLOGY RESULTS R AXIS 65 degrees RADIOLOGY RESULTS T [place] 36 degrees RADIOLOGY RESULTS Interpretation ECG Sinus rhythm with sinus arrhythmia Normal ECG No previous ECGs available Confirmed by - EMERGENCY ROOM, PHYSICIAN ([id number]), editor publications ILEANA KYLE (1962) on 08/24/2024 7:10:40 AM RADIOLOGY RESULTS 08/23/2024 12:0 9 PM ASSISTANT TO THE DIRECTOR 08/24/2024 7:10 AM ASSISTANT TO THE DIRECTOR Myles Murillo MD ECG ORDERABLES Edited Result [...] For 1 dose $Given 08/23/2024 11:59 AM ASSISTANT TO THE DIRECTOR 1 mg documented in this encounter Active and Recently Administered Medications Due to Daylight Saving Time, this section may contain times in both CDT and ASSISTANT TO THE DIRECTOR. Scheduled Medication Order 08/21/2024 08/22/2024 08/23/2024 LORazepam (ATIVAN) tablet 1 mg (COMPLETED) 1 mg, Oral, ONCE, On 08/23/24 at 1200, For 1 dose 1159 ($Given - Provi liudmila: Katie Rodriguez RN) documented in this encounter Care Teams Cable Layer Relationship Specialty Start Date End Date [facility], [facility] [address] [place] [address] PCP - General 08/23/24 documented as of this encounter
--- OUTSIDE RECORDS SUMMARY | 2024-09-07 22:00 | XMS_ITS | Encounter Summary ---
Author Organization [facility] Address [address] [place] [address] Care Team Providers Care Solar Sales Associate Name Role Phone Margot Huang PA-C Primary Care Provider [phone] Reason for Visit * Reason Comments Leg Pain Ever since having ce llulitis on her right leg, she gets weird sensations. She went to the ER in [place] and was told she could possibly have MS. She does get tingling sensations in her feet. Encounter Details Date Type Department Care Team (Late st Contact Info) Description 08/06/2024 9:40 AM CDT [facility] [address] [place], [place] [address] Robert Valdez, [facility] [address] [place], [place] [address] Generalized anxiety disorder with panic attacks (HRC) [...] this encounter Progress Notes * Robert Valdez, [facility] - 08/06/2024 9:40 AM CDT Chief Complaint Patient presents with Leg Pain Ever since having cellulitis on her right leg, she gets weird sensations. 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 documented in this encounter Plan of Treatment Upcoming Encounters Date Type Department Care Team (Late st Contact Info) Description 09/08/2024 4:30 PM GENERAL DOC Telemedicine [facility] [address] [place], [place] [address] Rosa Maria Phillips MD [address] [place] [address] documented as of this encounter Visit Diagnoses Diagnosis Generalized anxiety disorder with panic attacks (HRC)- Primary History of depression Personal history of other mental disorder documented in this encounter Care Teams Solar Sales Associate Relationship Specialty Start Date End Date Margot Huang PA-C [address] [place] [address] PCP - General Physician Traffic Control Supervisor 11/13/16 documented as of this encounter
--- OUTSIDE RECORDS SUMMARY | 2024-09-07 22:00 | XMS_ITS | Encounter Summary ---
Author Organization [employer] Address [address], [place] [address] Care Team Providers Care Flight Operations Manager Name Role Phone Margot Huang PA-C Primary Care Provider [phone] Reason for Visit * Procedure/Equipment (Routine) - Incomplete Specialty Diagnoses / Procedures Referred By Sukhi hassan Referred To Contact Diagnoses Right foot pain Procedures XR Foot Rt 3+ Views XR Foot Rt AP/MO/Lat Steve Stoll PA-C [address] [place] [address] Referral ID Status Reason Start Date Expiration Date V isits Requested Visits Authorized [id number] Incomplete 07/23/2024 10/22/2025 1 1 Encounter Details Date Type Department Care Team (Late st Contact Info) Description 07/23/2024 12:20 PM CDT Ancillary Procedure [facility] [address] Radiology [address] [place] [phone] Steve Stoll PA-C [address] [place] [address] Right foot pain Social History Tobacco Use [...] st Contact Info) Description 09/08/2024 4:30 PM SSRS DEVELOPER Telemedicine [facility] [address] [place], [place] [address] Rosa Maria Phillips MD [address] [place] [address] documented as of this encounter Procedures Procedure [...] limb documented in this encounter Care Teams Flight Operations Manager Relationship Specialty Start Date End Date Margot Huang PA-C [address] [place] [address] PCP - General Physician Office Executive 11/13/16 documented as of this encounter
--- OUTSIDE RECORDS SUMMARY | 2024-09-07 22:00 | XMS_ITS | Encounter Summary ---
Author Organization [facility] Address [address] [place] [address] Care Team Providers Care Diesel Trailer Mechanic Name Role Phone [facility], [facility] Primary Care Pr ovider Reason for Visit * Reason Comments Anxiety Encounter Details Date Type Department Care Team ([facility] st Contact Info) Description 08/28/2024 3:22 PM PROPOSAL ENGINEER - 08/28/2024 6:57 PM PROPOSAL ENGINEER Emergency [facility] Emergency Dept [address] [place] [address] [phone] Yvon Mack MD [address] [place] [phone] Generalized anxiety disorder with panic attacks Discharge [...] on file Legal Sex Female 4:22 AM PROPOSAL ENGINEER Gender Identity Not on file Sexual Orientation Not on file documented as of this encounter Last Filed Vital Signs Vital Sign Reading Time Taken Comments Blood Pressure 126/83 08/28/2024 6:52 PM PROPOSAL ENGINEER Pulse 76 08/28/2024 6:52 PM PROPOSAL ENGINEER Temperature 36.9 C (98.5 F) 08/28/2024 3:26 PM PROPOSAL ENGINEER Respiratory Rate 18 08/28/2024 3:26 PM PROPOSAL ENGINEER Oxygen Saturation 99% 08/28/2024 6:53 PM PROPOSAL ENGINEER Inhaled Oxygen Concentration - - Weight 80.3 kg (177 lb) 08/28/2024 3:26 PM PROPOSAL ENGINEER Height 167.6 cm (5' 6) 08/28/2024 3:26 PM PROPOSAL ENGINEER Body Mass Index 28.57 08/28/2024 3:26 PM PROPOSAL ENGINEER documented in this encounter Discharge Instructions * Discharge Instructions* Chaim Mckinney S, ACUTE DIALYSIS NURSE - 08/28/2024 6:42 PM PROPOSAL ENGINEER Glass Blowing Instructor encourage Pt to take her medications consistently as prescribed and keep all of her scheduled appointments with her outpatient service providers. Glass Blowing Instructor recommended Pt to continue follow up with her new current outpatient therapy service to improve coping skills. Glass Blowing Instructor recommended Pt to engage in new outpatient psychiatry for medication management as well as IOP Day treatment. However, Ptshared she has no health insurance as she was applying for [employer] insurance. DEC coordinator will contact Pt within next 1 or 2 business days to ensure coordination of care and provide assistance with appointments. [facility] specializing OCD Treatment Virtual support group available [place] invites anyone in the local community to attend a virtual Parent and Caregiver Support Group for those who have a loved one struggling with OCD or anxiety. Meets the third Saturday of each month, 5 to 6 pm. Please RSVP to if you plan to attend. [email or web address] [phone] [address], [address] [place] [address] Below is a list of FREE Mental Health Options in the [facility] Area: [facility] ([employer] [facility]) Serves those in emotional crisis with 24-hour, pbvkk-slq-m-week crisis counseling, assessment, referral, and medication management. Suicidal: [phone] Consultation: [phone] [place] [address], 13/05 [facility] [phone] Serves those in need of free outpatient mental health care Hours: Mon, Sat, Fri 1-3pm; Sat- 6:30-8:30pm [facility] [address] [place] [address] OSAL ENGINEER documented in this encounter Medications at Time [...] Pronouns: Race: White Ethnicity: Not or Language: Wolof Patient was assessed: Virtual: [facility] Crisis Assessment Start Date: 08/28/24 Crisis Assessment Start Time: 1735 Crisis Assessment Stop Time: 1811 Patient location: [facility] EMERGENCY DEPT Referral Data and Chief Complaint Kacey iHnes presents to the ED via EMS. Patient [...] was in the process of applying for [facility] insurance. Pt reported she was prescribed with [...] information name, relationship, phone number: Beth Gibson [phone] What happened today: Beth reported Pt was [...] planning: yes Additional collateral information: Risk Assessment [place] Suicide Severity Rating Scale Full Clinical Version: [...] No Preparatory Acts or Behavior (Lifetime): No [place] Suicide Severity Rating Scale Recent: Suicidal Ideation [...] was in the process of applying for [facility] insurance. Pt reported she was prescribed with [...] the patient: 36 min CPT code(s) utilized: 93047 - Psychotherapy for Crisis - 60 (30-74*) min PHILL Linares, Psychotherapist DEC - Triage & Transition Services Callback: [phone] OSAL ENGINEER documented in this encounter ED Notes * [...] days ago. The patient was seen by DEC and felt to be appropriate for outpatient follow-up in the context of her anxiety and OCD. Past Medical History Medical History and Problem List Depression Hypertension ROSE MARY Migraine PTSD Bipolar type 1 Medications Omeprazole Oxycodone Escitalopram Hydroxyzine Atenolol Lorazepam Rizatriptan Surgical History C section Podiatric Medicine Professor surgery Onarga tooth removal Physical Exam Patient Vitals for [...] Pressure Ventricular Rate 64 Atrial Rate 64 VA Interval 130 QRS Duration 80 QT 430 QTc 443 P [place] 33 R AXIS 69 T [place] 38 Interpretation ECG Sinus rhythm No significant changes compared with ECG of 23-Aug-2024, Interepreted by me at 1732 Independent Interpretation None ED Course Medications Administered Medications - No data to display Procedures Procedures Discussion of Management None ED Course ED Course as of 08/28/242241Aug 28, 20241635 I obtained the history and examined the patient as above. 1641 A social work consult was ordered and DELIA met with the patient. Findings were discussed 1847 I rechecked and updated the patient. Patient feels ready to go home Additional Documentation None Medical Decision Making / Diagnosis CMS Diagnoses: None MIPS None MDM Kacey Hines [...] as of 08/28/2024 6:50 PM Scribe Disclosure: IMolly, am serving as a scribe at 4:13 PM on 08/28/2024 to document services personally performed by Yvon Mack MD based on my observations and the provider's statements to me. Yvon Mack MD 08/28/242242 OSAL ENGINEER * Kaitlin Goldberg RN - 08/28/2024 3:44 PM CST Pt searched with security purse locked up pt in street clothes OSAL ENGINEER * Kaitlin Goldberg RN - 08/28/2024 3:27 PM CST Pt arrives via [facility] with feelings of being over whelmed [...] WDL WDL Cognitive/Neuro/Behavioral WDL Cognitive/Neuro/Behavioral WDL WDL [place] Coma Scale Best Eye Response 4-->(E4) spontaneous Best Motor Response 6-->(M6) obeys commands Best Verbal Response 5-->(V5) oriented [place] Coma Scale Score 15 OSAL ENGINEER * Joyce Santo RN - 08/28/2024 3:22 PM CST Bed: [facility] Expected date: Expected time: Means of arrival: Comments: Haiephraim Peres OSAL ENGINEER documented in this encounter Plan of Treatment Not on file documented as of this encounter Procedures Procedure Name Priority Date/Time Associated Diagnosis Comments EKG 12-LEAD, TRACING ONLY STAT 08/28/2024 5:30 PM PROPOSAL ENGINEER documented in this encounter Results * EKG 12-lead, tracing only (08/28/2024 5:30 PM PROPOSAL ENGINEER) Systolic Blood Pressure mmHg RADIOLOGY RESULTS Diastolic Blood Pressure mmHg RADIOLOGY RESULTS Ventricular Rate 64 BPM RAD IOLOGY RESULTS Atrial Rate 64 BPM RADIOLOG Y RESULTS VA Interval 130 ms RADIOLOG Y RESULTS QRS Duration 80 ms RADIOLO GY RESULTS QT 430 ms RADIOLOGY RESULTS QTc 443 ms RADIOLOGY RESULTS P [place] 33 degrees RADIOLOGY RESULTS R AXIS 69 degrees RADIOLOGY RESULTS T [place] 38 degrees RADIOLOGY RESULTS Interpretation ECG Sinus rhythm Normal ECG When compared with ECG of 23-Aug-2024 12:09, No significant change was found Confirmed by - EMERGENCY ROOM, PHYSICIAN ([id number]), video tape editor ILEANA KYLE (1963) on 08/31/2024 7:21:29 AM RADIOLOGY RESULTS 08/28/2024 5:30 PM PROPOSAL ENGINEER 08/31/2024 7:21 AM PROPOSAL ENGINEER us Yvon Mack MD ECG ORDERABLES Edited Result - Final RADIOLOGY RESULTS documented in this encounter Visit Diagnoses Diagnosis Generalized anxiety disorder with panic attacks documented in this encounter Care Teams Diesel Trailer Mechanic Relationship Specialty Start Date End Date Clinic, [facility] [address] [place] [address] PCP - General 08/23/24 documented as of this encounter
--- OUTSIDE RECORDS SUMMARY | 2024-09-07 22:00 | XMS_ITS | Encounter Summary ---
Author Organization [facility] Address [address] [address] Care Team Providers Care Community Resource Officer Name Role Phone Margot Huang PA-C Primary Care Provider [phone] Reason for Visit * Reason Comments Follow-up, NOS Entered automaticall y based on patient selection in [employer]. Encounter Details Date Type Department Care Team (Late Contact Info) Description 07/28/2024 4:30 PM CDT E-Visit [facility] [address] [facility] [place] [address] Steve Stoll PA-C [address] [place] [address] Chief Comp: Follow-up, NOS Social History Tobacco [...] (Late Contact Info) Description 09/08/2024 4:30 PM TARGET PROTECTION SPECIALIST Telemedicine [facility] [address] [place] [address] Rosa Maria Phillips MD [address] [place], [place] [address] documented as of this encounter Visit Diagnoses Not on filedocumented in this encounter Care Teams Community Resource Officer Relationship Specialty Start Date End Date Margot Huang PA-C [address] [place], [place] [phone] PCP - General Physician Financial Legal Assistant 11/13/16 documented as of this encounter
--- OUTSIDE RECORDS SUMMARY | 2024-09-07 22:00 | XMS_ITS | Encounter Summary ---
Author Organization [place] Address [address] [place] [address] Care Team Providers Care Ferris Wheel Operator Name Role Phone Gladys Summers Primary Care Pr ovider Reason for Visit * Reason Comments Advance Care Planning Encounter Details Date Type Department Care Team (Latest Contact Info) Description 08/24/2024 Documentation Only [facility] [address] [facility] [address] [place] [address] Tracey Whitley [facility] [address] [place] [address] Advance Care Planning Social History Tobacco Use [...] on file Legal Sex Female 4:22 AM PIG FARM MANAGER Gender Identity Not on file Sexual Orientation Not on file documented as of this encounter Plan of Treatment Not on file documented as of this encounter Visit Diagnoses Not on filedocumented in this encounter Care Teams Ferris Wheel Operator Relationship Specialty Start Date End Date Gladys Summers [address] [place] [address] PCP - General 08/23/24 documented as of this encounter
--- OUTSIDE RECORDS SUMMARY | 2024-09-07 22:00 | XMS_ITS | Encounter Summary ---
Author Organization [place] Address [address] [place] [address] Care Team Providers Care Electrical Software Engineer Name Role Phone Gladys Summers Primary Care Pr ovider Reason for Visit * Reason Comments Advance Care Planning Encounter Details Date Type Department Care Team (Latest Contact Info) Description 09/01/2024 Documentation Only [facility] [address] [facility] [address] [place] [address] Tracey Wihtley [facility] [address] [place] [address] Advance Care Planning Social History Tobacco Use [...] on file Legal Sex Female 4:22 AM BRAILLE TEACHER Gender Identity Not on file Sexual Orientation Not on file documented as of this encounter Plan of Treatment Not on file documented as of this encounter Visit Diagnoses Not on filedocumented in this encounter Care Teams Electrical Software Engineer Relationship Specialty Start Date End Date Gladys Summers [address] [facility] [place] [address] PCP - General 08/23/24 documented as of this encounter
--- OUTSIDE RECORDS SUMMARY | 2024-09-07 22:00 | XMS_ITS | Clinical Summary ---
Author Organization [facility] Address [place], [place] [address] Care Team Providers Care Substation Operator Apprentice Name Role [facility] + Allergies No [...] mouth 3 times daily if needed. Active Nixlo-4-TUC-EPA-Fish Oil (Fish OiL) 1,000 mg (120 mg-180 [...] Description 07/26/2024 2:50 PM CDT Office Visit [facility] [address] [facility] [address] [place], [place] [id number] Shyann Umana NP Derm Problem 07/26/2024 Travel [...] 93 07/26/2024 3:04 PM CDT Temperature 36.6 C (97.9 F) 07/26/2024 3:04 PM CDT Respiratory Rate 14 07/26/2024 3:04 PM CDT [...] st Contact Info) Description 10/22/2024 10:00 AM CLIENT DEVELOPMENT MANAGER Office Visit [facility] [address] [id number] [place] [address] [place], [place] [id number] Health Maintenance Due Date Last Done Comments Depression screening for age 12+ 2003 HIV for age 15-65 2006 Hepatitis C screening for ag e 18-79 2009 Pap test for age 21-65 2012 Tetanus booster 07/28/2019 07/28/2009 COVID-19 vaccine series (2023- season) 2024 Influenza for age 9-49 06/21/2024 [...] Comments Code Status Discussion: Discussed Care Teams Substation Operator Apprentice Relationship Specialty Start Date [facility] [address] [place] [address] PCP - General 01/14/24
--- OUTSIDE RECORDS SUMMARY | 2024-09-07 22:00 | XMS_ITS | Referral Summary ---
Author Organization [place] Address [address] [place] [address] Care Team Providers Care Rn Pacu Name Role Phone Clinic, Gladys Gar Primary Care Pr ovider Encounters Date Type Department Care Team Description 09/04/2024 Travel 09/04/2024 7:39 PM DIRECTOR OF MATH - 09/04/2024 11:48 PM DIRECTOR OF MATH Emergency [facility] Emergency Dept [address] [place] [address] Juarez Gonzalez MD Palpitations; Hypokalemia; Anxiety Discharge Disposition: Home or Self Care 09/01/2024 Documentation Only [facility] [address] [facility] [address] [place] [phone] Tracey Whitley Advance Care Planning 08/31/2024 Telephone [facility] Line [address] [place] [phone] Kiki Chairez 08/28/2024 Travel 08/28/2024 3:22 PM DIRECTOR OF MATH - 08/28/2024 6:57 PM [facility] Emergency [facility] Emergency Dept [address] [place] [address] [phone] Yvon Mack MD Generalized anxiety disorder with panic attacks Discharge Disposition: Home or Self Care 08/27/2024 Telephone [facility] Behavioral Service Line [address] [place] [phone] Caroline Peters 08/26/2024 Travel 08/26/2024 7:06 PM DIRECTOR OF MATH - 08/26/2024 11:00 PM [facility] Emergency [facility] Emergency Dept [address] [place] [address] Juarez Gonzalez MD ROSE MARY (generalized anxiety disorder); Generalized anxiety disorder with panic attacks Discharge Disposition: Home or Self Care 08/24/2024 Documentation Only [facility] [address] [facility] [address] [place] [address] Tracey Whitley Advance Care Planning 08/23/2024 Travel 08/23/2024 11:33 AM DIRECTOR OF MATH - 08/23/2024 4:11 PM [facility] Emergency [facility] Emergency Dept [address] [place] [address] Myles Murillo MD Anxiety about health; Anxiety [...] on file Legal Sex Female 4:22 AM DIRECTOR OF MATH Gender Identity Not on file Sexual Orientation Not on file Last Filed Vital Signs Vital Sign Reading Time Taken Comments Blood Pressure 107/74 09/04/2024 11:45 PM DIRECTOR OF MATH Pulse 64 09/04/2024 11:45 PM DIRECTOR OF MATH Temperature 37.1 C (98.8 F) 09/04/2024 11:45 PM DIRECTOR OF MATH Respiratory Rate 16 09/04/2024 11:45 PM DIRECTOR OF MATH Oxygen Saturation 98% 09/04/2024 11:45 PM DIRECTOR OF MATH Inhaled Oxygen Concentration - - Weight 79.9 kg (176 lb 2.4 oz) 09/04/2024 7:23 P M DIRECTOR OF MATH Height 167.6 cm (5' 6) 09/04/2024 7:23 PM DIRECTOR OF MATH Body Mass Index 28.43 09/04/2024 7:23 PM DIRECTOR OF MATH Plan of Treatment Not on file Procedures Procedure Name Priority Date/Time Associated Diagnosis Comments XR CHEST 2 VIEWS STAT 09/04/2024 9:47 PM DIRECTOR OF MATH D DIMER QUANTITATIVE STAT 09/04/2024 8:29 PM DIRECTOR OF MATH CBC WITH PLATELETS & DIFFERENTIAL STAT 09/04/2024 7:39 PM DIRECTOR OF MATH MAGNESIUM STAT 09/04/2024 7:39 PM DIRECTOR OF MATH CBC WITH PLATELETS AND DIFFERENTIAL STAT 09/04/2024 7:39 PM DIRECTOR OF MATH BASIC METABOLIC PANEL STAT 09/04/2024 7:39 PM DIRECTOR OF MATH TROPONIN T, HIGH SENSITIVITY STAT 09/04/2024 7:39 PM DIRECTOR OF MATH EKG 12-LEAD, TRACING ONLY STAT 09/04/2024 7:35 PM DIRECTOR OF MATH EKG 12-LEAD, TRACING ONLY STAT 08/28/2024 5:30 PM DIRECTOR OF MATH EKG 12-LEAD, TRACING ONLY STAT 08/23/2024 12:09 PM DIRECTOR OF MATH HIV ANTIGEN ANTIBODY COMBO Routine 04/16/2018 HEPATITIS [...] XR Chest 2 Views (09/04/2024 9:47 PM DIRECTOR OF MATH) Anatomical Region Laterality Modality Chest Digital Radiogra phy 09/04/2024 9:47 PM DIRECTOR OF MATH Impressions 09/04/2024 10:30 PM DIRECTOR OF MATH IMPRESSION: No evidence of active cardiopulmonary disease. Narrative 09/04/2024 10:30 PM DIRECTOR OF MATH EXAM: CHEST 2 VIEWS LOCATION: [facility] DATE: 09/04/2024 INDICATION: Chest pain. COMPARISON: None. FINDINGS: The lungs are clear. Normal size cardiac silhouette. Procedure Note Khoi Mejia MD - 09/04/2024 EXAM: CHEST 2 VIEWS LOCATION: [facility] DATE: 09/04/2024 INDICATION: Chest pain. COMPARISON: None. FINDINGS: The lungs are clear. Normal size cardiac silhouette. IMPRESSION: No evidence of active cardiopulmonary disease. Juarez Gonzalez MD IMG DIAGNOSTIC IMAGING ORDERABLES Final Result * D dimer quantitative (09/04/2024 8:29 PM DIRECTOR OF MATH) D-Dimer Quantitative <0.27 0.00 - 0.50 ug/mL FEU 09/04/2024 8:50 PM DIRECTOR OF MATH [facility] Blood BLOOD SPECIMEN / Unknown Venipuncture / Unknown 09/04/2024 8:29 PM DIRECTOR OF MATH 09/04/2024 8:33 PM DIRECTOR OF MATH Narrative [facility] - 09/04/2024 8:50 PM DIRECTOR OF MATH This D-dimer assay is intended for use in conjunction with a clinical pretest probability assessment model to exclude pulmonary embolism (PE) and deep venous thrombosis (DVT) in outpatients suspected of PE or DVT. The cut-off value is 0.50 ug/mL FEU. Juarez Gonzalez MD LAB - BLOOD ORDERABLES Final Result [facility] [address] Lab (1st floor, no room number) [place] [address], [facility] * CBC with platelets and differential (09/04/2024 7:39 PM DIRECTOR OF MATH) WBC Count 7.5 4.0 - 11.0 10e3/uL 09/04/2024 7:59 PM DIRECTOR OF MATH [facility] RBC Count 4.83 3.80 - 5.20 10e6/uL 09/04/2024 7:59 PM DIRECTOR OF MATH [facility] Hemoglobin 14.0 11.7 - 15.7 g/dL 09/04/2024 7:59 PM DIRECTOR OF MATH [facility] Hematocrit 42.2 35.0 - 47.0 % 09/04/2024 7:59 PM DIRECTOR OF MATH [facility] MCV 87 78 - 100 fL 09/04/2024 7:59 PM DIRECTOR OF MATH [facility] MCH 29.0 26.5 - 33.0 pg 09/04/2024 7:59 PM DIRECTOR OF MATH [facility] MCHC 33.2 31.5 - 36.5 g/dL 09/04/2024 7:59 PM DIRECTOR OF MATH [facility] RDW 12.3 10.0 - 15.0 % 09/04/2024 7:59 PM DIRECTOR OF MATH [facility] Platelet Count 242 150 - 450 10e3/uL 09/04/2024 7:59 PM DIRECTOR OF MATH [facility] % Neutrophils 69 % 09/04/2024 7:59 PM DIRECTOR OF MATH [facility] % Lymphocytes 23 % 09/04/2024 7:59 PM DIRECTOR OF MATH [facility] % Monocytes 7 % 09/04/2024 7:59 PM DIRECTOR OF MATH [facility] % Eosinophils 1 % 09/04/2024 7:59 PM DIRECTOR OF MATH [facility] % Basophils 1 % 09/04/2024 7:59 PM DIRECTOR OF MATH [facility] % Immature Granulocytes 0 % 09/04/2024 7:59 PM DIRECTOR OF MATH [facility] NRBCs per 100 WBC 0 <1 /100 024 7:59 PM DIRECTOR OF MATH [facility] Absolute Neutrophils 5.2 1.6 - 8.3 10e3/uL 09/04/2024 7:59 PM DIRECTOR OF MATH [facility] Absolute Lymphocytes 1.7 0.8 - 5.3 10e3/uL 09/04/2024 7:59 PM DIRECTOR OF MATH [facility] Absolute Monocytes 0.5 0.0 - 1.3 10e3/uL 09/04/2024 7:59 PM DIRECTOR OF MATH [facility] Absolute Eosinophils 0.1 0.0 - 0.7 10e3/uL 09/04/2024 7:59 PM DIRECTOR OF MATH [facility] Absolute Basophils 0.0 0.0 - 0.2 10e3/uL 09/04/2024 7:59 PM DIRECTOR OF MATH [facility] Absolute Immature Granulocytes 0.0 <=0.4 10e3/uL 09/04/2024 7:59 PM DIRECTOR OF MATH [facility] Absolute NRBCs 0.0 10e3/uL 09/04/2024 7:59 PM DIRECTOR OF MATH [facility] Blood STRUCTURE OF LEFT UPPER LIMB / Unknown Venipuncture / Unknown 09/04/2024 7:39 PM DIRECTOR OF MATH 09/04/2024 7:56 PM DIRECTOR OF MATH us Juarez Gonzalez MD LAB - BLOOD ORDERABLES Final Result LABORATORY [facility] [address] [facility] Lab (1st floor, no room number) [place] [address] * Troponin T, High Sensitivity (09/04/2024 7:39 PM DIRECTOR OF MATH) [facility] Troponin T, High Sensitivity <6 <=14 ng/L 09/04/2024 8:23 PM DIRECTOR OF MATH [facility] Comment: Either a High Sensitivity [...] Unknown Venipuncture / Unknown 09/04/2024 7:39 PM DIRECTOR OF MATH 09/04/2024 7:56 PM DIRECTOR OF MATH Juarez Gonzalez MD LAB - BLOOD ORDERABLES Final Result LABORATORY [facility] [address] Lab (1st floor, no room number) [place] [phone] * Magnesium (09/04/2024 7:39 PM DIRECTOR OF MATH) Pathologist [facility] Magnesium 2.2 1.7 - 2.3 mg/dL 09/04/2024 8:31 PM DIRECTOR OF MATH LABORATORY Blood STRUCTURE OF LEFT UPPER LIMB / Unknown Venipuncture / Unknown 09/04/2024 7:39 PM DIRECTOR OF MATH 09/04/2024 7:56 PM DIRECTOR OF MATH Juarez Gonzalez MD LAB - BLOOD ORDERABLES Final Result Performing Organization Address [facility] Co de Phone Number [facility] [address] Lab (1st floor, no room number) [place] [phone] [place] [address] * (ABNORMAL) Basic metabolic panel (BMP) (09/04/2024 7:39 PM DIRECTOR OF MATH) Sodium 139 135 - 145 mmol/L 09/04/2024 8:23 PM [facility] Potassium 3.4 3.4 - 5.3 mmol/L 09/04/2024 8:23 PM [facility] Chloride 104 98 - 107 mmol/L 09/04/2024 8:23 PM [facility] Carbon Dioxide (CO2) 23 22 - 29 mmol/L 09/04/2024 8:23 PM [facility] Anion Gap 12 7 - 15 mmol/L 09/04/2024 8:23 PM [facility] Urea Nitrogen 7.2 6.0 - 20.0 mg/dL 09/04/2024 8:23 PM [facility] Creatinine 0.72 0.51 - 0.95 mg/dL 09/04/2024 8:23 PM [facility] GFR Estimate >90 >60 mL/min/1.7 3m2 09/04/2024 8:23 PM [facility] Comment:eGFR calculated usin 2020 CKD-EPI equation. Calcium 9.6 8.8 - 10.4 mg/dL 09/04/2024 8:23 PM DIRECTOR OF MATH [facility] Comment:Reference intervals for this test were updated on 05/05/2024 to reflect our healthy population more accurately. There may be differences in the flagging of prior results with similar values performed with this method. Those prior results can be interpreted in the context of the updated reference intervals. Glucose 112(H) 70 - 99 mg/dL 09/04/2024 8:23 PM DIRECTOR OF MATH LABORATORY Blood STRUCTURE OF LEFT UPPER LIMB / Unknown Venipuncture / Unknown 09/04/2024 7:39 PM DIRECTOR OF MATH 09/04/2024 7:56 PM DIRECTOR OF MATH us uJarez Gonzalez MD LAB - BLOOD ORDERABLES Final Result LABORATORY [facility] [address] Lab (1st floor, no room number) [place] [address] * EKG 12 lead (09/04/2024 7:35 PM DIRECTOR OF MATH) Only the most recent of3 resultswithin the time period is included. Systolic Blood Pressure mmHg RADIOLOGY RESULTS Diastolic Blood Pressure mmHg RADIOLOGY RESULTS Ventricular Rate 76 BPM RAD IOLOGY RESULTS Atrial Rate 76 BPM RADIOLOG Y RESULTS AR Interval 124 ms RADIOLOG Y RESULTS QRS Duration 86 ms RADIOLO GY RESULTS QT 362 ms RADIOLOGY RESULTS QTc 407 ms RADIOLOGY RESULTS P Mcallister 45 degrees RADIOLOGY RESULTS R AXIS 81 degrees RADIOLOGY RESULTS T Mcallister -17 degrees RADIOLOGY RESULTS Interpretation ECG Sinus [...] by - EMERGENCY ROOM, PHYSICIAN ([id number]), editor school photograph ILEANA KYLE ([id number]) on 09/07/2024 7:08:49 AM RADIOLOGY RESULTS 09/04/2024 7:35 PM DIRECTOR OF MATH 09/07/2024 7:08 AM DIRECTOR OF MATH us Juarez Gonzalez MD ECG ORDERABLES Edited Result - Final RADIOLOGY RESULTS * HIV Antigen Antibody Combo (04/16/2018) HIV Antigen Antibody Combo negative Blood specimen (specimen) us Patient Reported LAB - BLOOD ORDERABLES Final Re sult * Hepatitis C antibody (08/18/2014 9:29 AM CDT) Hepatitis C Antibody Negative NEG [facility] Blood specimen (specimen) 08/18/2014 9:29 AM CDT 08/18/2014 9:32 AM CDT us Wiliam Lagunas PA-C LAB - BLOOD ORDERABL ES Final Result Performing Organization Address City/[facility]/ZIP Co de Phone Number [facility] [address] * PAP imaged thin layer, screen (08/18/2014 12:00 AM CDT) PAP NIRMALA Zaldivar Report Patient Name: TURNER TIDWELL MR#: [id number] Specimen #: [id number] Collected: 08/18/2014 Received: 08/19/2014 Reported: 08/24/2014 12:44 [...] Vieyra ( ASCP) Processed and screened at [facility] CLINICAL HISTORY: LMP: 08/09/2014 Previous normal pap Date of Last Pap: 04/10/2012 Previous abnormal pap: lgsil, Papanicolaou Test Limitations: Cervical cytology is a screening test with limited sensitivity; regular screening is critical for cancer prevention; Pap tests are primarily effective for the diagnosis/preventi on of squamous cell carcinoma, not adenocarcinomas or other cancers. TESTING LAB LOCATION: [address] [id number] COLLECTION SITE: Client: [facility] Location: [facility] (R) COPATH Cytologic material (specimen) 08/18/2014 08/19/2014 11:48 AM CDT Wiliam Lagunas PA-C LAB - [facility] L SPECIMEN Final Result COPATH from Last 3 Months or Most Recently Relevant to Health Maintenance Care Teams Rn Pacu Relationship Specialty Start Date End Date Clinic, Gladys Jamison [place] [address] [place] [address] PCP - General 08/23/24
--- OUTSIDE RECORDS SUMMARY | 2024-09-07 22:00 | XMS_ITS | Encounter Summary ---
Author Organization [place] Address [address] [place] [address] Care Team Providers Care Fire Patrol Name Role Phone Gladys Summers Primary Care [...] on file Legal Sex Female 4:22 AM DEVIL DOG Gender Identity Not on file Sexual Orientation Not on file documented as of this encounter Plan of Treatment Not on file documented as of this encounter Visit Diagnoses Not on filedocumented in this encounter Care Teams Fire Patrol Relationship Specialty Start Date End Date Gladys Summers [address] [place] [place] [address] PCP - General 08/23/24 documented as of this encounter
--- OUTSIDE RECORDS SUMMARY | 2024-09-07 22:00 | XMS_ITS | Encounter Summary ---
Author Organization [place] Address [address] [place] [address] Care Team Providers Care Bell Cleaner Name Role Phone Gladys Summers Primary Care [...] on file Legal Sex Female 4:22 AM UNIVERSITY RELATIONS RECRUITER Gender Identity Not on file Sexual Orientation Not on file documented as of this encounter Plan of Treatment Not on file documented as of this encounter Visit Diagnoses Not on filedocumented in this encounter Care Teams Bell Cleaner Relationship Specialty Start Date End Date Gladys Summers [address] [place] [place] [address] PCP - General 08/23/24 documented as of this encounter
--- NOTE | 2024-09-07 22:18 | ED.NURSE ---
Doctor assessed pt and will have nursing call Ron for assessment as well. This nurse called Ron at [phone] and Ron called back @[phone]. Ron states they will call this nurse back and talk to pt in approx 15 min.
[2024-09-07 22:27] LABS: Albumin* 4.7 g/dL (3.3-5.0)
[2024-09-07 22:30] LABS: Aspartate Amino Transferase* 19 U/L (12-35); Bilirubin Total* 0.4 mg/dL (0.1-1.5); Carbon Dioxide* 24 mmol/L (20-32); Creatinine* 0.6 mg/dL (0.5-1.5); Est. Creatinine Clearance* 124.85; Estimated Glomerular Filt Rate 121 ml/min; Total Protein* 7.4 g/dL (6.0-8.3)
[2024-09-07 22:31] LABS: Alkaline Phosphatase* 56 U/L (40-150); Blood Urea Nitrogen* 7 mg/dL (5-24); Calcium* 9.6 mg/dL (8.4-10.6); Glucose* 96 mg/dL (60-115)
[2024-09-07 22:40] LABS: Anion Gap 12 mEq/L (7-15); Chloride* 104 mmol/L (96-114); Potassium* 3.7 mmol/L (3.6-5.1); Sodium* 140 mmol/L (135-149)
[2024-09-07 22:43] LABS: Alanine Aminotransferase* 31 U/L (4-35)
[2024-09-07 22:48] LABS: Basophils Absolute Auto 0.03 K/uL (0.00-0.30); Basophils Percent Auto 0.4 % (0.0-3.0); Eosinophils Absolute Auto 0.08 K/uL (0.00-0.50); Eosinophils Percent Auto 1.2 % (0.0-7.0); Hematocrit 41.4 % (33.0-51.0); Hemoglobin* 13.6 gm/dL (12.0-16.0); Immature Granulocytes Abs Auto 0.05 K/uL (0.00-0.30); Immature Granulocytes Pct Auto 0.7 %; Lymphocytes Absolute Auto 2.27 K/uL (0.90-2.90); Lymphocytes Percent Auto 32.9 % (20-44); Mean Corpuscular HGB Conc 33 gm/dL (32-36); Mean Corpuscular Hemoglobin 29 pg (26-34); Mean Corpuscular Volume 89 fL (80-100); Monocytes Percent Auto 7.7 % (0.0-11.0); Neutrophils Absolute Auto 3.93 K/uL (1.7-7.0); Neutrophils Percent Auto 57.1 % (42.0-72.0); Platelet Count* 246 K/uL (140-440); RDW Coefficient of Variation % 12.4 % (11.5-15.5); Red Blood Count 4.67 m/uL (4.00-5.20); White Blood Count* 6.89 K/uL (4.50-11.00)
[2024-09-07 22:49] LABS: Acetaminophen* < 10.0 ug/mL (10.0-30.0); Salicylate* < 1.0 mg/dL (1.0-10)
[2024-09-07 23:15] LABS: Slide Review Reflex No
--- NOTE | 2024-09-07 23:33 | ED.NURSE ---
Pt talked with Ron and doctor also talked with Ron and it was recommended pt follow-up with Sushant Davis in [facility]. Appt was made for patient with Sushant Davis, pt given paperwork and all paperwork was faxed to Sushant Davis as well. Paperwork was placed in Med Records bin to be scanned.
== END 2024-09-08 00:17 | disposition home or self-care (01) ==
PROVIDERS: Emergency Provider Emergency Medicine; PCP Family Medicine
DX: F41.9 Anxiety disorder, unspecified (principal); F32.A Depression, unspecified
CPT/HCPCS: 36415; 80053; 80143; 80179; 80306; 81025; 84443; 85025; 99284

== ENCOUNTER 2024-09-14 10:14 | Outpatient (CLI) | payer MEDICAID, SELFPAY ==
--- OUTSIDE RECORDS SUMMARY | 2024-09-16 00:38 | XMS_ITS | Encounter Summary ---
Author Organization [facility] [facility] Address [address] [place] [address] Care Team Providers Care Balance Bridge Assembler Name Role Phone Margot Huang PA-C Primary Care Provider [phone] Reason for Visit * Reason Comments PHP Screening Insurance has been v erified as active. Client should be encouraged to check in and out of network benefits for both program and provider. Ready to screen as soon as availability permits. Encounter Details Date Type Department Care Team (Late st Contact Info) Description 09/14/2024 Telephone [facility] Partial Hospital[facility] Program [address] [place], [place] [id number] Park Lovell PA-C [address] [place] [address] PHP Screening (Insurance has been verified as active. Client should be encouraged to check in and out of network benefits for both program and provider. Ready to screen as soon as availability permits. ) Social History Tobacco Use Types Packs/Day Years Used Date Smoking Tobacco: Former Cigarettes 0.5 10 0 01/21/2012 - 01/20/2022 Smokeless Tobacco: Former Comments:Pt vapes Alcohol Use Standard Drinks/Week Comments Not Currently 0 (1 standard drink = 0.6 oz pur e alcohol) barely Humiliation, Afraid, Rape, and Kick questionnair e Answer Date Recorded Within the last year, have y ou been afraid of your partner or ex-partner? Patient declined 09/14/2024 Within the last year, have y ou been humiliated or emotionally abused in other ways by your partner or ex-partner? Patient declined 09/14/2024 Within the last year, have y ou been kicked, hit, slapped, or otherwise physically hurt by your partner or ex-partner? Patient declined 09/14/2024 Within the last year, have y ou been raped or forced to have any kind of sexual activity by your partner or ex-partner? Patient declined 09/14/2024 PHQ-2 Answer Date Recorded PHQ-2 Score 2 05/22/2024 Sex and Gender Information Value Date Recorded Sex Assigned at Not on file Gender Identity Not on file Sexual Orientation Not on file documented as of this encounter Nursing Notes * Soniya Juan, CLOTH PRINTING INSPECTOR - 09/14/2024 5:15 PM CST [facility] Screening Referral - In-Person Programming [facility]/Gladys Jamison Referral Source: Dr. Berger, [facility] Non-HP/Gladys Jamison Referral Source and phone number: NA Reason for Referral: Anxiety and depression. ANDREW for Referral Source: NA YES NO ADMISSION CRITERIA X Must be 18 years or older. Able to provide photo identification. Yes X Client is own legal decision maker, or staff has obtained guardian's permission for screening/ program participation. Guardian's name and contact information if applicable: Yes X Able to attend programming for the full program *from 9:00 AM - 3:30 PM, M - F for 3 weeks and can begin immediately via virtual or in person. Yes X Confirm Address on file: [address] [place] [address] Primary phone Number for visits: [phone] Active e-mail: [email or web address] X In person requirements: Screener to verify that client is able and willing to participate in the following in person programming requirements: Be able to participate in person Able to arrive at [facility] by 8:30 AM to allow time for parking, check in, and walking through the building to Suite Able to ambulate from [facility] to [facility] for programming at [facility], as well as to the cafeteria & back for lunch (Accommodations needed?) Masks are optional as of 01/29/23 If client is vaccinated (2 shots + booster if eligible or 2 shots with series completed 2 weeks agoif not eligible for booster) and tests Covid positive, need to be out for 5 days; If unvaccinated and tests Covid positive, need to be out for 10 days. Yes X Willing to be an active participant in plan of care, including attending & participating in groups on-line or in person. (What do you hope to get out of DayBridge?) Yes - Everything, I've exhausted all my options. Need to get up and do something different. Find myself again; get my daughter back, she's with family now. Find new ways to cope. X Acute onset or de-compensation or exacerbation of symptoms related to an [place] mental disorder. Describe primary mental health symptoms, brief mental health treatment history, and reason for current need: Reason for Referral: Client came to the ED with panic and anxiety; this is the 4th or 5th ER visit in the last 2 weeks, one in which resulted in a psychiatric hospitalization. Client reports she began to have an increase in symptoms 8 weeks ago when dxed with Cellulitis, which triggered panic and medical anxiety impacting her functioning in daily living, work, and ability to parent and take care of herself. Primary Mental Health Symptoms: Anxiety, panic, racing thoughts, ruminations, crying, OCD checking and obsessive symptoms (checking her heart rate), insomnia, poor appetite (20 lb. Weight loss in last 8 weeks) lack of motivation, and hopelessness. Treatment History: Client reports being dxed with anxiety, depression and PTSD at age 13. She obtained therapy and psychiatry for about 2 years. She was stabilized and quit her therapy and medications a couple of years later. She went into a depression and quit school at age 15-16. Client has battled symptoms and been on and off of medications during her adult life. She had an anxiety episode during Covid and went back on medications in 2019-. She felt better so discontinued medications in 02/2024. About 8 weeks ago, with a medical issue, her anxiety and panic resurfaced. Client has seen a therapist weekly for 2 weeks at [facility]. She has had multiple ER visits in the past month at [facility] and [place] and one psychiatric hospitalization last week. She has never beento a day program or participated in group therapy. Reason for Current Need: Client has been unable to function, take care of her daughter due to her panic and crying, and is not able to function at work (lost her job). She needs psychiatric stabilization, coping skills and calming strategies. X Has current stressors - please list current stressors Not being able to take care of her daughteras she would like, not able to work, impending financial concerns. X Must not be in imminent danger to self, others, but may have a recent history of self-endangeringbehavior. (Ask about present risk and history of suicidal/homicidal/SIB behavior. If access to dangerous weapons, comment on willingness to secure them, if deemed necessary by [facility] treatment team.) Agrees to make and keep a safety plan, including reaching out to EC support person and going to the ED if unable to maintain safety. Suicidal Thoughts/Attempts: No active suicidal thoughts, is having hopelessness and feeling like she cannot live this way. No plan or intent to harm self. Homicidal Thoughts: None SIB: None other than some skin picking, which she has restarted recently. Access to guns/dangerous weapons in the home: None Willingness to secure them: NA Able to make and follow a safety plan: Yes Protective factors: Daughter, family, friends, loves life. X Impairment of daily functioning to the extent that client is unable or has significant decrease in ability to function at work or family/social situations, or changes in sleep, appetite, or personal hygiene including self-neglect. Sleep: Yes, insomnia - slept 3.5 hours last night. Appetite: Poor appetite - reports 20 Lb. Weight loss in 8 weeks. Personal hygiene: Hard time showering due to fears her heart rate will increase. Work: Unable to work. Socialization: Impacted her relationships, less socialization with boyfriend and friends. I get stuck in my head. X Possess cognitive and emotional ability to participate in an active treatment process/can tolerate intensity of partial hospitalization program. How comfortable are you with the idea of being a group setting? (Has client participated in groups before)? How are groups for the client? Comment on pre sentation in the interview - able to track, etc. Also ask if history of TBI, ADHD, learning disability.) None X Able to tolerate participating in groups in person or on-line for 6.5 hours per day and be able to regulate emotions when in distress and without extensive staff support. (Example: What have you found to be helpful to help calm yourself or manage emotions). Yes - client has not been in groups, but likes groups and being in classes. X Adequate support system to sustain self when not in program (i.e. family, aids social worker including case management, [facility] or therapist, psychiatrist, other) . At least one (two preferable) emergency contact is accessible during programming hours for client support Therapist: Short-term crisis therapy - [facility] at [facility] Psychiatrist:None currently - her PCP at prescribes medications. Other professional supports: None Personal supports: Boyfriend (Geoffrey), Mother, aunt, cousin, boy friend's sister, best friend, brother, Dad and ex-partner. X Has stable housing (living situation, who lives in the home?). Lives with her boyfriend in his house. X Willing and able to refrain from use of alcohol or other substances while in program (comment if recent or historical substance abuse). Yes - does not use chemicals. X Able to self-administer medications during programming day. Yes X Needs PHP level of care based on (must be clear that client couldn't stabilize with less intensive services). Check off applicable reasons: _X__ Has tried OP services ___ Unable to obtain OP services _X__ Moderate to severe level of functional impairment _X__ Decline in level of functioning or safety _X__ At risk of hospitalization without a higher level of care ___ Other: YES NO EXCLUSION CRITERIA X Mental illness and chemical dependency symptoms that prevent participation in active treatment. No X Unable to emotionally regulate without extensive support during group programming. Has acute psychosis, psychosis without insight, ja, or other symptoms that could be better treated in alternative programming. No X Only has primary diagnosis of chemical and/or substance abuse. None X Too medically unstable to safely participate in [employer] (i.e. medical devices requiring skillednursing involvement). Comment on any medical issues and interaction with mental health. None X High potential for violent or predatory behavior - ask about criminal/arrest history. None X Cognitive impairment prevents participation in active treatment. None X Incapable of basic ADLs (i.e. toileting, feeding oneself). Accommodations needed? No Reminder: (Infectious Control Questions) Is this referral related to Work Comp and/or will Work Comp be utilized for coverage? I [place] a [place] showing for you, is that correct? Yes Do you anticipate any changes in insurance in the next month? No Insurance has been verified, the client is responsible for verifying their coverage levels and co-pay requirements and/or out of pocket expense. We ask that you provide 2 emergency contacts. Will you give verbal consent for [facility] staff to share your information verbally as outlined on the consent form for friends and family? Please indicate full names, relationship to you and numbersthey can be reached below: Geoffrey Kilpatrick - [phone] Beth Hines, Mom - TBD VERBAL CONSENT - Obtained X YES NO For in-person programming, ANDREW's will be prepared ahead of time and verbal consent documented, and to be signed in person when they arrive for programming. Consult with provider or [facility] team regarding: NA Meets Criteria for Day[facility]: YES Appt scheduled for: 09/16/24 at 9:00 AM Are you able to do the intake via [facility]? Yes [place] Needed ([place], [place], [place], all [place] except [place]): Yes - [place] Screened by: PHILL Reina 09/14/2024, 5:34 PM PACKER documented in this encounter Plan of Treatment Upcoming Encounters Date Type Department Care Team (Late st Contact Info) Description 09/16/2024 9:00 AM PILL PACKER Telemedicine [facility] Partial Hospitalization Program [address] [place] [id number] Rachael Rousseau MD [address] [place] [id number] 09/16/2024 10:00 AM PILL PACKER Telemedicine [facility] Partial Hospitalization Program [address] [place] [id number] Rachael Rousseau MD [address] [place] [id number] 09/29/2024 1:00 PM PILL PACKER Telemedicine [facility] [address] [place], [place] [id number] Rosa Maria Phillips MD [address] [place], [place] [id number] documented as of this encounter Visit Diagnoses Not on filedocumented in this encounter Care Teams Balance Bridge Assembler Relationship Specialty Start Date End Date Margot Huang PA-C [address] [place] [address] PCP - General Physician Scrap Handler 11/13/16 documented as of this encounter
--- OUTSIDE RECORDS SUMMARY | 2024-09-16 00:38 | XMS_ITS | Encounter Summary ---
Author Organization [facility] Address [address], [place] [address] Care Team Providers Care Brake Shoe Rebuilder Name Role Phone Margot Huang PA-C Primary Care Provider [phone] Reason for Visit * Reason Comments MEDICATION REACTION Encounter Details Date Type Department Care Team (Late st Contact Info) Description 09/14/2024 7:17 PM [facility] - 09/15/2024 10:15 AM [facility] [address] [place] [address] Suleman Blum MD [address] [place] [address] Dizziness (Primary Dx); Anxiety (HRC); Palpitations Discharge Disposition: Home Social History Tobacco Use Types Packs/Day Years [...] Sign Reading Time Taken Comments Blood Pressure 158/78 09/15/2024 7:01 AM [facility] Pulse 76 09/15/2024 7:01 AM [facility] Temperature 36.7 C (98.1 F) 09/15/2024 7:01 AM [facility] Respiratory Rate 20 09/15/2024 7:01 AM [facility] Oxygen Saturation 100% 09/15/2024 7:01 AM [facility] Inhaled Oxygen Concentration - - Weight - - Height - - Body Mass Index - - documented in this encounter Discharge Summaries * Cintia Mcqueen PA-C - 09/15/2024 9:25 AM CST [facility] Emergency Medicine Observation Discharge Summary ED Arrival Date: 09/14/20241916 Start ED Obs date: 09/14/20242232 Discharge Date: 09/15/2024 Reason for ED Observation: Anxiety requiring further observation Discharge Exam: Most recent vitals: Patient Vitals for the past 24 hrs: BP Temp Temp src Pulse Resp SpO2 09/15/24 0701 (!) 158/78 98.1 ??F (36.7 ??C) Oral 76 20 100 % 09/14/24 1821 (!) 155/84 98 ??F (36.7 ??C) -- -- -- -- 09/14/24 1818 -- -- Oral 72 18 100 % General: Alert Respiratory: non-labored GI: no vomiting, no abdominal tenderness Neuro: Gait stable with no assistants Psych: anxious affect. Continuous self soothing behavior. Suicidal ideation: no. Homicidal ideation: none. Hallucinations: none. Thought process: normal. Insight: partial Hospital Course: See ED Provider Note ED Course for full detail [facility] Events: During observation the patient did not require medications for agitation and did not require restraints for safety. At discharge, the patient was tolerating food and liquids. Procedures Performed: None Advanced Imaging: None Consultations: None Discharge Condition: Stable Disposition: Discharge [facility] Discharge Instructions and Follow Up Plan: Clinical Impressions: 1. Dizziness 2. Anxiety (HRC) 3. Palpitations Time spent in discharge: 15 minutes MAN documented in this encounter Discharge Instructions * Discharge Instructions* Cintia Mcqueen PA-C - 09/14/2024 10:21 PM [facility] You have been seen for evaluation of lightheadedness, and palpitations. - These symptoms are due to your atenolol. While these symptoms are expected reactions to your atenolol medication, it seems that in your case they are quite severe. I recommend that you do not take the atenolol medication for anxiety. - Please take hydroxyzine as needed for symptoms of anxiety. - You may take Zyprexa for sleep at night. - Please follow up with your deep bridge appointment on 09/16/2024. Thank you for trusting our team with your care. MAN documented in this encounter Medications at Time of Discharge Medication Sig Dispensed Refills Start Date End Date atenolol (TENORMIN) 25 MG tabletIndications:anxiet y Take one-half tablet (12.5 mg) by mouth daily as needed (anxiety). Indications: anxiety 45 Tablet 3 09/13/2024 09/13/2025 escitalopram oxalate (LEXAPRO) 20 MG tabletIndications:anxiet y/depression Take 1 Tablet (20 mg) by mouth daily. 30 Tablet 3 08/13/2024 08/13/2025 OLANZapine (ZYPREXA) 5 MG tablet Take 1 Tablet (5 mg) by mouth at bedtime as needed. 3 Tablet 09/15/2024 rizatriptan (MAXALT) 10 MG tabletIndications:Intrac table migraine with aura without status migrainosus 1 tab po at onset of migraine, 1 tab po 2 hrs later if needed. Max 9 pills per month. 9 Tablet 11 08/19/2024 documented as of this encounter ED Notes * Luis Carbajal RN - 09/15/2024 10:14 AM CST [facility] ED Nursing Discharge Note Arrival Information: Patient arrived: Dropped off Patient escorted by: Self Discharge Information: Patient discharged: Home Patient accompanied by: Accompanied By: Self Transport mode: Mode: Car Discharge instructions given and explained to patient: Follow up appointment review with patient: Yes New discharge prescriptions explained to patient: Yes: Medications Prescribed this Visit Disp Refills Start End OLANZapine (ZYPREXA) 5 MG tablet 3 Tablet 0 09/15/2024 -- Take 1 Tablet (5 mg) by mouth at bedtime as needed. 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 social worker consulted prior to discharge: Yes LDA in place: Patient verbalized understanding of discharge plan and capable of completing discharge plan: Yes Does patient require hand-off or assistance with discharge plan: No Belongings and medication returned to patient and prompted to retrieve weapons: Yes Patient level of pain on discharge: (0-10) Pain Rating: Rest: 0 Holds documented by nursing during this visit - reviewed chart for most current hold status: Yes Legal Status Orders (From admission, onward) LEGAL STATUS: VOLUNTARY MAN * Solis Bledsoe RN - 09/14/2024 9:14 PM CST Pt from triage rooms. Pt given zyprexa in triage. Pt aware of plan to rest and re-assess. She is calm and cooperative. MAN * Idalmis Cyr RN - 09/14/2024 8:34 PM CST Pt states when she was admitted to [facility] she had a bottle of trazadone and a bottle of xanax that wastaken from her and not returned upon discharge. Upon review with pharmacy medications were signed out from pharmacy and sent back to the unit to be given back to patient. [facility] charge nurse called, he stated the medications were likely returned to patient but there is no supporting documentation. MAN * Suleman Blum MD - 09/14/2024 8:19 PM CST [facility] Emergency Medicine Visit Note Chief Complaint: MEDICATION REACTION HPI Kacey Hines is a 34 y.o. old female hypertension, anxiety, depression who presents for evaluation of ongoing anxiety and now dizziness in the setting of recent atenolol use. Patient here with sitongoing dizziness, palpitations, feels generally unwell and anxious about her health. She was hospitalized here from September 12 through yesterday for anxiety in her mental health department. She was assessed at that time and ultimately discharged, but given her ongoing symptoms came back earliertoday. Seen by psychiatry again and set up for the day bridge program. Patient took a 12.5 mg dose of atenolol today and she is worried because since then she has been feeling dizzy, off balance. Shedoes report a low baseline heart rate that is lower since taking the medication. She denies any fainting or syncope. She does report midsternal chest pain and palpitations. No vomiting. No fevers. Nocough, congestion or URI symptoms. Patient also asking about her trazodone and alprazolam prescriptions that were taken upon admission, but not given to her upon discharge. Triage Vitals Temp 09/14/24 1821 98 ??F (36.7 ??C) Temp src 09/14/24 1818 Oral Pulse 09/14/24 1818 72 Resp 09/14/24 1818 18 BP 09/14/24 1821 (!) 155/84 SpO2 09/14/24 1818 100 % Physical Exam General: Alert, comfortable appearing, no apparent distress. Eyes: Pupils equal, round, 6 mm bilaterally, EOMI, conjunctivae normal, sclera anicteric. ENT: No nasal discharge. Neck: Full ROM. Respiratory: Lungs clear to auscultation bilaterally. No wheezing, crackles or ronchi. Normal work of breathing. Cardiovascular: Heart regular rate and rhythm. No murmurs, gallops or rubs noted. Strong palpable distal pulses, good capillary refill. Musculoskeletal: normal appearing extremities, full ROM throughout. Neurological: Alert and oriented x 3. No gross neurological deficits. Skin: Dry without any obvious signs of rash, infection or breakdown. Psychiatric: Engaged in coversation, but does appear anxious, fidgety. No SI/HI. MDM: Patient here for ongoing palpitations, dizziness and general malaise and worry in the setting of more chronic underlying anxiety and panic. On arrival patient is awake, alert, no acute distress, but anxious, fidgety. Vital signs showed patient is slightly hypertensive, otherwise within normal limits. No evidence of hypotension and reported syncope or fainting. Normal ECG earlier today and based on her recent history and presentation I do not feel lab work or imaging is indicated. Her overall symptoms are most consistent with ongoing somatic complaints related to her fairly severe anxiety and panic disorder. Patient not sleeping well, fidgety here, would benefit from anxiolytic. Plan oral olanzapine and period of observation. Will also contact pharmacy to look into prescriptions that were taken from her a not given back. She states she was not told that she should stop taking these medicines upon discharge. Suleman Blum MD ED Course as of 09/15/24923Sep 14, 20242024 Sign out received, assumed care at this time. 34F previously seen in the ED for anxiety. Presents to the emergency department with lightheaded and dizziness after taking atenolol for panic attack. Medically cleared by triage provider. Recent admission 09/12/2024. Patient was again evaluated by Psychiatry earlier today. [facility] Given history of not sleeping and symptoms, patient given 10 mg Zyprexa. Transfer from triage. Plan to monitor patient in G pod for improvement of symptoms. [TJ] 2027 Plan to gamma pod now for further observation. [UNRULY] 2202 Patient is a assessed from the doorway. Sleeping comfortably in bed. [TJ] 2232 TRANSFER TO ED OBSERVATION The patient was transferred to observation status. Start Obs date: 09/14/20242232 This ED Visit note serves at the patient's observation history and physical exam. ED Observation Plan -Provide supportive care in a safe environment. -Observe changes in thought process with medication, sleep and low stimulus environment. -Provide hydration and nourishment when willing or able to take oral intake -Observe vital signs and thought process for signs of deterioration -Planned psychiatry consultation: Pending reassessment Discharge Criteria -Stable or improving thought process -Capacity to avoid injury -Results of any consultations performed [TJ] Danyel Sep 15, 2024 0051 Patient signed out pending awake provider reassessment. [TJ] 0152 Sign out received, assumed care at this time. 34 yo F w PMH anxiety with plan for provider reassess in morning and likely D/C. Recent admission for same, started on atenolol, felt palpations and lightheaded after taking at home and came in for this. 2nd visit in two days, was seen by psych 09/14 with referral to [facility], left, took atenolol and came back, reported not sleeping, given zydis in triage and transferred to [facility] to sleep. Accepted at [facility] 09/16 [SP] 0301 Went to check on patient. Pt sleeping comfortably [SP] 0745 Sign out received, assumed care at this time. Recent admission. Was started on atenolol at admission for anxiety. Took medication, felt palpitations came to ER. EKG reassuring was seen by psych and recommended day bridge program and discharged. Returned 1hr later after taking another dose of atenolol and felt the same way. Was given zyprexa and slept overnight. [EL] 0922 Reassessed patient; feeling anxious at this time. Discussed not using atenolol any further. Patient agrees. Overnight prescriber has ordered for zyprexa for bed. On chart review, patient was to continue her PRN ativan. Patient states she was told to stop this. [facility] return precuations provided and patient discharged in good condition [EL] ED Course User Index [EL] Cintia Mcqueen PA-C [UNRULY] Suleman Blum MD [SP] Jasmina Phan PA-C [TJ] Guru Gilliland PA-C Clinical Impressions as of 09/15/24 0924 Dizziness Anxiety (HRC) Palpitations MAN documented in this encounter Plan of Treatment Upcoming Encounters Date Type Department Care Team (Late st Contact Info) Description 09/16/2024 9:00 AM [facility] Telemedicine [facility] Partial Hospitalization Program [address] [place] [address] Rachael Rousseau MD [address] [place] [address] 09/16/2024 10:00 AM [facility] Telemedicine [facility] Partial Hospitalization Program [address] [place] [id number] Rachael Rousseau MD [address] [place] [address] 09/29/2024 1:00 PM [facility] Telemedicine [facility] [address] [place], [place] [id number] Rosa Maria Phillips MD [address] [place], [place] [address] documented as of this encounter Visit Diagnoses Diagnosis Dizziness- Primary Dizziness and giddiness Anxiety (HRC) Anxiety state, unspecified Palpitations * Triage Assessment Note - Sandie Meehan RN - 09/14/2024 6:16 PM [facility] Pt arrives through triage with c/o medication reaction. Pt states she took 2 doses of atenolol and feels dizzy and generally unwell. She states these symptoms are giving her anxiety and also wants a mental health eval. Denies SI. Was seen yesterday for same. MAN documented in this encounter Administered Medications Inactive Administered Medications - up to 3 most recent administrations Medication Order MAR Action Action Date Dose Rate Site LORazepam (ATIVAN) tablet 0.5 mg 0.5 mg, Oral, ONCE, On Sat09/15/24 at 0945, For 1 dose Given 09/15/2024 9:40 AM [facility] 0.5 mg OLANZapine (ZyPREXA ZYDIS) disintegrating tablet 10 mg 10 mg, Oral, ONCE, On Sat09/14/24 at 2000, For 1 dose Given 09/14/2024 8:08 PM [facility] 10 mg documented in this encounter Active and Recently Administered Medications Times are shown in [facility]. Scheduled Medication Order 09/13/2024 09/14/2024 09/15/2024 LORazepam (ATIVAN) tablet 0.5 mg (COMPLETED) 0.5 mg, Oral, ONCE, On Sat09/15/24 at 0945, For 1 dose 0940 (Given - Provid er: Luis Carbajal RN) OLANZapine (ZyPREXA ZYDIS) disintegrating tablet 10 mg (COMPLETED) 10 mg, Oral, ONCE, On Sat09/14/24 at 2000, For 1 dose 2007 (Given - Provider: Idalmis Cyr RN) documented in this encounter Care Teams Brake Shoe Rebuilder Relationship Specialty Start Date End Date Margot Huang PA-C [address] [place] [address] PCP - General Physician Lorry Weigher 11/13/16 documented as of this encounter
--- OUTSIDE RECORDS SUMMARY | 2024-09-16 00:38 | XMS_ITS | Clinical Summary ---
[facility] Address [address], [place] [address] Care Team Providers Care Yarder Puncher Name Role Phone Margot Huang PA-C Primary Care Provider [phone] Source Comments You are receiving this document as you are listed as the primary care provider,follow-up provider, or the patient has been referred to you for consultation.This is in compliance with the Medicare and[facility] EHR Incentive Program,which states Providers who transition their patient to another setting of careor provider of care or refers their patient to another provider of care shouldprovide summary care record for each transition of care or referral. Inspro Allergies Active Allergy Reactions Criticality Noted Date Comments Sulfa Antibiotics Hives High 10/26/2015 Medications Medication Sig Dispensed Refills Start Date End Date Status escitalopram oxalate (LEXAPRO) 20 MG tabletIndication s:anxiety/depres adriano Take 1 Tablet (20 mg) by mouth daily. 30 Tablet 3 08/13/2024 5 Active rizatriptan (MAXALT) 10 MG tabletIndication s:Intractable migraine with aura without status migrainosus 1 tab po at onset of migraine, 1 tab po 2 hrs later if needed. Max 9 pills per month. 9 Tablet 11 08/19/2024 Active atenolol (TENORMIN) 25 MG tabletIndication s:anxiety Take one-half tablet (12.5 mg) by mouth daily as needed (anxiety). Indications: anxiety 45 Tablet 3 09/13/2024 5 Active OLANZapine (ZYPREXA) 5 MG tablet Take 1 Tablet (5 mg) by mouth at bedtime as needed. 3 Tablet 09/15/2024 Active LORazepam (ATIVAN) 0.5 MG tabletIndication s:Anxiety (HRC),Palpitatio ns Take 1 Tablet (0.5 mg) by mouth every 6 hours as needed for Anxiety. 15 Tablet 09/15/2024 Active busPIRone (BUSPAR) 10 MG tabletIndication s:Anxiety (HRC) Take 1 Tablet (10 mg) by mouth two times a day. 180 Tablet 3 09/15/2024 5 Active naproxen (NAPROSYN) 500 MG tablet Take 1 Tablet (500 mg) by mouth two times daily as needed for Pain for up to 7 days. 14 Tablet 08/11/2024 4 propranolol (INDERAL) 20 MG tabletIndication s:Anxiety (HRC) 20-40mg twice daily 120 Tablet 3 08/13/2024 4 Discontinued predniSONE (DELTASONE) 20 MG tabletIndication s:Radiculopathy of lumbar region Take 2 Tablets (40 mg) by mouth daily. 14 Tablet 08/13/2024 4 Discontinued LORazepam (ATIVAN) 0.5 MG tabletIndication s:Anxiety (HRC) Take 1 Tablet (0.5 mg) by mouth every 6 hours as needed for Anxiety. 15 Tablet 08/13/2024 4 Discontinued hydrOXYzine HCl (ATARAX) 25 MG tabletIndication s:Anxiety (HRC) Take 1 Tablet (25 mg) by mouth every 6 hours as needed. 30 Tablet 1 08/19/2024 4 Discontinued(Inef fective for condition) atenolol (TENORMIN) 25 MG tabletIndication s:Intractable migraine with aura without status migrainosus,Anxi ety (HRC) Take 0.5 Tablets (12.5 mg) by mouth daily. 45 Tablet 3 08/19/2024 4 Discontinued DULoxetine (CYMBALTA) 30 MG capsuleIndicatio ns:Anxiety (HRC),Palpitatio ns,History of depression Take 1 Capsule (30 mg) by mouth daily. 30 Capsule 3 09/08/2024 4 Discontinued(Ludy ent Discharged) LORazepam (ATIVAN) 0.5 MG tabletIndication s:Anxiety (HRC) Take 1 Tablet (0.5 mg) by mouth every 6 hours as needed for Anxiety. 10 Tablet 09/15/2024 4 Discontinued(*Med change OR same med OR reorder, new dose/directions) Active Problems Problem Noted Date Diagnosed Date Generalized anxiety disorder 09/14/2024 Migraine with aura and witho ut status [...] Encounters Date Type Department Care Team Description 09/15/2024 1:15 PM [facility] Telemedicine [address] [place] [address] Rosa Maria Phillips MD Anxiety (HRC) (Primary Dx); Palpitations 09/14/2024 7:17 PM OFF PREMISE SERVICE REPRESENTATIVE - 09/15/2024 10:15 AM [facility] Emergency Emergency Dept [address] [place] [address] Suleman Blum MD Dizziness (Primary Dx); Anxiety (HRC); Palpitations Discharge Disposition: Home 09/14/2024 11:18 AM OFF PREMISE SERVICE REPRESENTATIVE - 09/14/2024 5:08 PM [facility] Emergency Emergency Dept [address] [place] [address] Guru Gilliland PAKeenanC ROSE MARY (generalized anxiety disorder) (HRC) (Primary Dx); Anxiety (HRC); Panic disorder (HRC) Discharge Disposition: Home 09/14/2024 Telephone [facility] Partial Hospitalization Program [address] [place] [address] Park Lovlel PA-C PHP Screening (Insurance has been verified as active. Client should be encouraged to check in and out of network benefits for both program and provider. Ready to screen as soon as availability permits. ) 09/14/2024 Telephone [facility] Partial Hospitalization Program [address] [place] [address] Soniya Juan, MINISTER 09/12/2024 4:18 PM OFF PREMISE SERVICE REPRESENTATIVE - 09/13/2024 10:43 AM OFF PREMISE SERVICE REPRESENTATIVE Hospital Encounter [facility] NE7 [address] [place] [address] Reji Olmedo II, MD Anxiety (HRC) (Primary Dx) Discharge Disposition: Home 09/07/2024 1:41 PM OFF PREMISE SERVICE REPRESENTATIVE - 09/07/2024 11:59 PM OFF PREMISE SERVICE REPRESENTATIVE [facility] Ech[facility] [address] [place] [address] Tachycardia Discharge Disposition: Home 09/07/2024 10:40 AM OFF PREMISE SERVICE REPRESENTATIVE Office Visit [facility] [address] [facility] [address] [place] [address] Marika Gunter PA-C Tachycardia 09/04/2024 6:40 PM OFF PREMISE SERVICE REPRESENTATIVE Office Visit [facility] [address] [facility] [address] [place] [address] Chely Leavitt PA-C Tachycardia; ST segment changes on electrocardiogram 08/26/2024 3:30 PM OFF PREMISE SERVICE REPRESENTATIVE Lab Visit [facility] [address] [place] [place] [address] Anxiety (HRC); Palpitations 08/26/2024 3:00 PM OFF PREMISE SERVICE REPRESENTATIVE Office Visit [facility] [address] [place] [place] [address] Rosa Maria Phillips MD Anxiety (HRC) (Primary Dx); Palpitations 08/26/2024 1:00 PM OFF PREMISE SERVICE REPRESENTATIVE E-Visit [facility] [address] [place] [place] [address] Rosa Maria Phillips MD Chief Comp: Follow-up, NOS 08/26/2024 Nurse Triage [facility] [address] [place] [address]. [place] [address] Margot Huang PA-C ANXIETY 08/24/2024 4:00 PM OFF PREMISE SERVICE REPRESENTATIVE Telemedicine [facility] [address] [place] [address] Swati Murray, FOREST LANDSCAPE ECOLOGY PROFESSOR, MINISTER ROSE MARY (generalized anxiety disorder) (HRC) (Primary Dx) 08/24/2024 E-Visit [facility] [address] [place] [address] Mychart, Generic Provider 08/19/2024 2:30 PM CDT Office Visit [facility] [address] [place] [address]. [place] [address] Rosa Maria Phillips MD Anxiety (HRC) (Primary Dx); Intractable migraine with aura without status migrainosus 08/17/2024 3:30 PM CDT E-Visit [address] [address] Jim Esparza PA-C Chief Comp: QUESTIONS, GENERAL 08/13/2024 9:00 AM CDT Office Visit [address] [address] Jim Esparza PA-C Anxiety (HRC) (Primary Dx); Radiculopathy of lumbar region; Sacroiliitis (HRC) 08/11/2024 1:00 PM CDT Ancillary Procedure [facility] [address] [place] [phone] Antonia Ya PA-C Right calf pain 08/11/2024 12:40 PM CDT Office Visit [facility] [address] [facility] [address] [place] [phone] Antonia Ya PA-C Low back pain, unspecified back pain laterality, unspecified chronicity, unspecified whether sciatica present; Right calf pain 08/06/2024 9:40 AM CDT [facility] [address] [place] [address] Robert Valdez, [facility] Generalized anxiety disorder with panic attacks (HRC) (Primary Dx); History of depression 07/28/2024 4:30 PM CDT E-Visit [facility] [address] [place] [address] Steve Stoll PA-C Chief Comp: Follow-up, NOS 07/23/2024 12:20 PM CDT Ancillary Procedure [facility] [address] [address]iology [address] [place] [phone] Steve Stoll PA-C Right foot pain 07/23/2024 7:30 AM CDT Telemedicine [facility] [address] [place] [address] Steve Stoll PA-C Right foot pain (Primary Dx); Cellulitis of right lower extremity 07/15/2024 Nurse Triage [facility] [address] [place] [address] Leobardo Lloyd CELLULITIS from Last 3 Months [...] Comments Blood Pressure 158/78 09/15/2024 7:01 AM OFF PREMISE SERVICE REPRESENTATIVE Pulse 76 09/15/2024 7:01 AM OFF PREMISE SERVICE REPRESENTATIVE Temperature 36.7 C (98.1 F) 09/15/2024 7:01 AM OFF PREMISE SERVICE REPRESENTATIVE Respiratory Rate 20 09/15/2024 7:01 AM OFF PREMISE SERVICE REPRESENTATIVE Oxygen Saturation 100% 09/15/2024 7:01 AM OFF PREMISE SERVICE REPRESENTATIVE Inhaled Oxygen Concentration - - Weight 80.3 kg (177 lb) 09/15/2024 11:32 AM OFF PREMISE SERVICE REPRESENTATIVE Height 167.6 cm (5' 6) 09/12/2024 7:22 PM OFF PREMISE SERVICE REPRESENTATIVE Body Mass Index 28.57 09/12/2024 7:22 PM OFF PREMISE SERVICE REPRESENTATIVE Plan of Treatment Upcoming Encounters Date Type Department Care Team (Late st Contact Info) Description 09/16/2024 9:00 AM OFF PREMISE SERVICE REPRESENTATIVE Telemedicine [facility] Partial Hospitalization Program [address] [place] [address] Rachael Rousseau MD [address] [place] [address] 09/16/2024 10:00 AM OFF PREMISE SERVICE REPRESENTATIVE Telemedicine [facility] Partial Hospitalization Program [address] [place] [address] Rachael Rousseau MD [address] [place] [address] 09/29/2024 1:00 PM OFF PREMISE SERVICE REPRESENTATIVE [facility] [address] [place] [address] Rosa Maria Phillips MD [address] [place], [place] [address] Health Maintenance Due Date Last Done Comments [...] Procedure Name Priority Date/Time Associated Diagnosis Comments ECG-ROUTINE 12 LEAD; INTRPT & REPRT STAT 09/14/2024 11:16 AM OFF PREMISE SERVICE REPRESENTATIVE ECHOCARDIOGRAM STAT 09/07/2024 1:44 PM OFF PREMISE SERVICE REPRESENTATIVE Tachycardia ECG 12 LEAD OUTPATIENT STAT 4 10:26 AM OFF PREMISE SERVICE REPRESENTATIVE Tachycardia ECG 12 LEAD OUTPATIENT STAT 4 6:20 PM OFF PREMISE SERVICE REPRESENTATIVE Tachycardia COMPLETE BLOOD COUNT-W/DIFF Routine 08/26/2024 3:30 PM OFF PREMISE SERVICE REPRESENTATIVE Anxiety (HRC) Palpitations TSH, SENSITIVE Routine 08/26/2024 3:30 PM OFF PREMISE SERVICE REPRESENTATIVE Anxiety (HRC) Palpitations BASIC METABOLIC PANEL Routine 08/26/2024 3:30 PM OFF PREMISE SERVICE REPRESENTATIVE Anxiety (HRC) Palpitations CBC AND DIFFERENTIAL PANEL Routine 08/26/2024 3:30 PM OFF PREMISE SERVICE REPRESENTATIVE Anxiety (HRC) Palpitations US VENOUS RIGHT LOWER [...] AG/AB 4TH GEN Routine 10/02/2017 1:40 PM OFF PREMISE SERVICE REPRESENTATIVE Encounter for supervision of normal first in first trimester PAP TEST, ROUTINE Routine 08/21/2017 11: 14 AM CDT Screening for malignant neoplasm of cervix from Last 3 Months or Most Recently Relevant to Health Maintenance Results * ECG 12-LEAD ROUTINE (09/14/2024 11:16 AM OFF PREMISE SERVICE REPRESENTATIVE) Ventricular Rate 64 BPM MUSE GHP Atrial Rate 64 BPM MUSE GHP P-R Interval 126 ms MUSE GHP QRS Duration 80 ms MUSE GHP QT 442 ms MUSE GHP QTc 455 ms MUSE GHP P [place] 64 degrees MUSE GHP R [place] 78 degrees MUSE GHP T [place] 46 degrees MUSE GHP 09/14/2024 11:1 6 AM OFF PREMISE SERVICE REPRESENTATIVE Narrative MUSE GHP - 09/14/2024 12:36 PM OFF PREMISE SERVICE REPRESENTATIVE Sinus rhythm Normal ECG When compared with ECG of 07-SEP-2024 10:26, Vent. rate has decreased BY 41 BPM T wave inversion no longer evident in Inferior leads Confirmed by Carlos Manuel Monzon ([id number]) on 09/14/2024 12:36:19 PM Procedure Note Carlos Manuel Monzon MD - 09/14/2024 Sinus rhythm Normal ECG When compared with ECG of 07-SEP-2024 10:26, Vent. rate has decreased BY 41 BPM T wave inversion no longer evident in Inferior leads Confirmed by Carlos Manuel Monzon ([id number]) on 09/14/2024 12:36:19 PM Jay Epps MD EKG [facility] [address] [place] [address] * Echocardiogram (09/07/2024 1:44 PM OFF PREMISE SERVICE REPRESENTATIVE) 09/07/2024 1:44 PM OFF PREMISE SERVICE REPRESENTATIVE Narrative PN ECHO - 09/07/2024 3:05 PM OFF PREMISE SERVICE REPRESENTATIVE Procedure type: ECHOCARDIOGRAM Procedure 09/07/2024 1:44 PM [...] Female Procedure Staff Interpreting DESTINY CONTRERAS MD Warp Yarn Sorter: B2B Sales Professional: PETAR JEAN Ordering Provider: JESSICA Dee Primary Provider: JESSICA Dee Electronically signed by DESTINY CONTRERAS MD (Interpreting Warp Yarn Sorter) on at 3:04 PM Procedure Note Destiny Contreras MD - 11/18/2024 Procedure type: ECHOCARDIOGRAM Procedure 09/07/2024 1:44 PM date/time: Facility: [facility] SUMMARY: 1. Normal left ventricular size and [...] Female Procedure Staff Interpreting DESTINY CONTRERAS MD Warp Yarn Sorter: B2B Sales Professional: [facility] Ordering Provider: JESSICA Dee Primary Provider: JESSICA Dee Electronically signed by DESTINY CONTRERAS MD (Interpreting Warp Yarn Sorter) on at 3:04 PM Marika Gunter PA-C ET ECHO ORDERABLE S PN ECHO * ECG 12-LEAD ROUTINE (Non Lab to perform-Today)-STAT (09/07/2024 10:26 AM OFF PREMISE SERVICE REPRESENTATIVE) Only the most recent of2 resultswithin the time period is included. Ventricular Rate 105 BPM MUSE GHP Atrial Rate 105 BPM MUSE GHP P-R Interval 130 ms MUSE GHP QRS Duration 78 ms MUSE GHP QT 340 ms MUSE GHP QTc 449 ms MUSE GHP P [place] 71 degrees MUSE GHP R [place] 87 degrees MUSE GHP T [place] 2 degrees MUSE GHP 09/07/2024 10:2 6 AM OFF PREMISE SERVICE REPRESENTATIVE Narrative MUSE GHP - 09/07/2024 3:27 PM OFF PREMISE SERVICE REPRESENTATIVE Mild Sinus tachycardia Possible Left atrial enlargement [...] PM Marika Gunter PA-C PN ECG ORDERABLES [facility] [address] [place] [address] * Complete Blood Count-W/Diff (08/26/2024 3:30 PM OFF PREMISE SERVICE REPRESENTATIVE) WBC 6.5 3.5 - 10.5 x10(9)/L 08/26/2024 3:36 PM OFF PREMISE SERVICE REPRESENTATIVE [facility] RBC 4.95 3.90 - 5.03 x10(12)/L 08/26/2024 3:36 PM OFF PREMISE SERVICE REPRESENTATIVE [facility] Hemoglobin 14.8 12.0 - 15.5 g/dL 08/26/2024 3:36 PM OFF PREMISE SERVICE REPRESENTATIVE [facility] HCT 43.5 34.9 - 44.5 % 08/26/2024 3:36 PM OFF PREMISE SERVICE REPRESENTATIVE [facility] MCV 87.9 80.0 - 100.0 fL 08/26/2024 3:36 PM OFF PREMISE SERVICE REPRESENTATIVE [facility] MCH 29.9 27.6 - 33.3 pg 08/26/2024 3:36 PM OFF PREMISE SERVICE REPRESENTATIVE [facility] MCHC 34.0 31.5 - 35.2 g/dL 08/26/2024 3:36 PM OFF PREMISE SERVICE REPRESENTATIVE [facility] RDW 13.1 11.9 - 15.5 % 08/26/2024 3:36 PM OFF PREMISE SERVICE REPRESENTATIVE [facility] Platelets 264 150 - 450 x10(9)/L 08/26/2024 3:36 PM OFF PREMISE SERVICE REPRESENTATIVE [facility] Neutrophil Absolute 4.5 1.7 - 7.0 10(9)/L 08/26/2024 3:36 PM OFF PREMISE SERVICE REPRESENTATIVE [facility] Lymphocyte Absolute 1.4 1.0 - 4.8 10(9)/L 08/26/2024 3:36 PM OFF PREMISE SERVICE REPRESENTATIVE [facility] Monocyte Absolute 0.5 0.2 - 0.9 10(9)/L 08/26/2024 3:36 PM OFF PREMISE SERVICE REPRESENTATIVE [facility] Eosinophil Absolute 0.0 0.0 - 0.5 10(9)/L 08/26/2024 3:36 PM OFF PREMISE SERVICE REPRESENTATIVE [facility] Basophil Absolute 0.0 0.0 - 0.3 10(9)/L 08/26/2024 3:36 PM OFF PREMISE SERVICE REPRESENTATIVE [facility] Blood Venipuncture / Unknown 08/26/2024 3:30 PM OFF PREMISE SERVICE REPRESENTATIVE 08/26/2024 3:30 PM OFF PREMISE SERVICE REPRESENTATIVE Rosa Maria Phillips MD LAB_1 [facility] [address] [place] [address] * TSH (08/26/2024 3:30 PM OFF PREMISE SERVICE REPRESENTATIVE) [facility] TSH, Sensitive 1.10 0.30 - 4.50 uIU/mL 08/26/2024 9:42 PM OFF PREMISE SERVICE REPRESENTATIVE [facility] Blood Venipuncture / Unknown 08/26/2024 3:30 PM OFF PREMISE SERVICE REPRESENTATIVE 08/26/2024 3:30 PM OFF PREMISE SERVICE REPRESENTATIVE Rosa Maria Phillips MD LAB_1 [facility] [address] * (ABNORMAL) Basic Metabolic Panel (08/26/2024 3:30 PM OFF PREMISE SERVICE REPRESENTATIVE) Sodium 140 136 - 145 mmol/L 08/27/2024 10:07 AM [facility] Potassium 3.6 3.5 - 5.1 mmol/L 08/27/2024 10:07 AM [facility] Chloride 110(H) 98 - 109 mmol/L 08/27/2024 10:07 AM [facility] CO2 21 20 - 29 mmol/L 08/27/2024 10:07 AM [facility] Anion Gap 9 6 - 16 mmol/L 08/27/2024 10:07 AM [facility] Calcium 9.6 8.4 - 10.4 mg/dL 08/27/2024 10:07 AM [facility] BUN 9 7 - 26 mg/dL 08/27/2024 10:07 AM [facility] Creatinine 0.72 0.55 - 1.02 mg/dL 08/27/2024 10:07 AM [facility] Glucose 102(H) 70 - 100 mg/dL 08/27/2024 10:07 AM [facility] Comment:The given reference range is for the fasting state. Non-fasting reference range for glucose is 70 - 180 mg/dL. GFR, Estimated >60 >60 mL/min/1.7 3m2 08/27/2024 10:07 AM [facility] Hours Fasting 0.0 8 - 12 Hours 08/27/2024 10:07 AM [facility] Blood Venipuncture / Unknown 08/26/2024 3:30 PM OFF PREMISE SERVICE REPRESENTATIVE 08/26/2024 3:30 PM OFF PREMISE SERVICE REPRESENTATIVE Rosa Maria Phillips MD LAB_1 [facility] [address] [place] [address] * US Venous Right Lower Extrem [...] excluded by this technique. Antonia Ya PA-C [facility] * (ABNORMAL) Urine Culture - Collect in Lab (08/11/2024 10:18 AM CDT) Urine Culture Growth(A) 08/12/2024 10:20 PM CDT [facility] Urine Culture <10,000 CFU/mL Mixed Bacterial Growth 08/12/2024 10:20 PM CDT [facility] Comment: Mixed Bacterial Growth indicates the specimen is likely contaminated at collection with urogenital and/or fecal satinder. The presence of organisms at <10,000 cfu/ml in culture, UTI unlikely. Urine URINE SPECIMEN COLLECTION, CLEAN CATCH / Unknown Non-blood Collection / Unknown 08/11/2024 10:18 AM CDT 08/11/2024 10:35 AM CDT Antonia Ya PA-C LAB_[address] [address], [facility] * (ABNORMAL) Urinalysis Routine, Micro/Culture if Pos: Clean Catch (08/11/2024 10:18 AM CDT) Pathologist [facility] Urine Culture Comment Urinalysis results do not meet criteria for urine culture reflex. 08/11/2024 10:54 AM [facility] Color Yellow 08/11/2024 10:54 AM [facility] Clarity Clear Clear 08/11/2024 10:54 AM [facility] Specific [place] >=1.030(A) 1.005 - 1.030 08/11/2024 10:54 AM [facility] pH 5.5 5.0 - 8.0 08/11/2024 10:54 AM [facility] Protein Negative Neg/Trace 08/11/2024 10:54 AM [facility] Glucose Negative Negative 08/11/2024 10:54 AM [facility] Ketones 15(A) Negative 08/11/2024 10:54 AM [facility] Urobilinogen 0.2 <2.0 08/11/2024 10:54 AM [facility] Bilirubin Negative Negative 08/11/2024 10:54 AM [facility] Blood Negative Neg/Trace 08/11/2024 10:54 AM [facility] Nitrite Negative Negative 08/11/2024 10:54 AM [facility] Leukocyte Esterase Trace(A) Negative 08/11/2024 10:54 AM [facility] Source Clean Catch 08/11/2024 10:54 AM [facility] Urine URINE SPECIMEN COLLECTION, CLEAN CATCH / Unknown Non-blood Collection / Unknown 08/11/2024 10:18 AM CDT 08/11/2024 10:35 AM CDT Laurent CHIU LAB_1 [facility] [address] [place] [address], [facility] * (ABNORMAL) Urine Microscopic Evaluation: Clean Catch (08/11/2024 10:18 AM CDT) [facility] Red Blood Cells 0-3 0 - 3 /HPF 10:54 AM [facility] White Blood Cells 6-9(A) 0 - 5 /HPF 08/11/2024 10:54 AM [facility]T [facility] Bacteria Moderate(A ) None Seen /HPF 08/11/2024 10:54 AM CDT [facility] Squamous Epithelial Cells Moderate(A ) None Seen, Occasional , Few /HPF 08/11/2024 10:54 AM CDT [facility] Mucus Present(A) None Seen /HPF 08/11/2024 10:54 AM CDT [facility] Urine URINE SPECIMEN COLLECTION, CLEAN CATCH / Unknown Non-blood Collection / Unknown 08/11/2024 10:18 AM CDT 08/11/2024 10:35 AM CDT Laurent [facility]IU LAB_1 [facility] [address] [place] [address], [facility] * XR Foot Rt 3+ Views [...] 1/2 Ag/Ab 4th Generation (10/02/2017 1:40 PM OFF PREMISE SERVICE REPRESENTATIVE) HIV 1/2 AG/AB 4thGEN Negative (Non Reactive) [facility] Comment:HIV-1 p24 Ag and HIV -1/HIV-2 Ab not detected. 10/02/2017 1:40 PM OFF PREMISE SERVICE REPRESENTATIVE 10/02/2017 1:47 PM OFF PREMISE SERVICE REPRESENTATIVE Narrative [facility] - 10/02/2017 7:15 PM OFF PREMISE SERVICE REPRESENTATIVE Performed at [facility], [address] [address] Meg Gracia APRN, CNM LAB_1 Performing Organization Address City/[facility] Co de Phone Number [facility] [employer] [phone] * Pap Test, Routine (08/21/2017 11:14 AM CDT) Cytology, Pap (NOTE) Spooling Operator Cytology Report Patient Name: TURNER TIDWELL Taken: 08/21/2017 Received: 08/21/2017 Reported: 09/02/2017 Physician(s): GENARO JAMIL Source of Specimen Pap Test, Routine Cervical/Endocervi cristina: Specimen Adequacy Satisfactory for evaluation. Endocervical component present. Final Cytologic Interpretation/Res ult NEGATIVE FOR INTRAEPITHELIAL LESION OR MALIGNANCY (NILM) *Electronically Signed Out By Savanah SMITH(ASCP)* SARAH Pack (ASCP) Savanah Thompson CT(ASCP) Pap Smear History Date of Last Menstrual Period: No LMP recorded Microscopic Description Microscopic examination is performed. [facility] Department of Pathology [address] [place] [address] [facility] 08/21/2017 11:1 4 AM CDT 08/21/2017 6:30 PM CDT Genaro Jamil MD LAB_1 Performing Organization Address City/[facility] Co de Phone Number [facility] [employer] [phone] from Last 3 Months or Most Recently Relevant to Health Maintenance Advance Directives * Full Code (Latest Code Status on File) Date Activated Date Inactivated Comments 09/12/2024 7:12 PM 09/13/2024 12:49 PM * Full Code Date Activated Date Inactivated Comments 11/27/2017 8:06 AM 11/27/2017 2:06 PM Care Teams Yarder Puncher Relationship Specialty Start Date End Date Margot Huang PA-C [address] [place] [address] PCP - General Physician Senior Major Gifts Officer 11/13/16
--- OUTSIDE RECORDS SUMMARY | 2024-09-16 00:38 | XMS_ITS | Encounter Summary ---
Author Organization [employer] Address [address] [place] [address] Care Team Providers Care Mobile Heavy Equipment Operator Name Role Phone Margot Huang PA-C Primary Care Provider [phone] Encounter Details Date Type Department Care Team (Late st Contact Info) Description 09/15/2024 1:15 PM PRODUCTION ZONE LEADER [facility] [address] [place], [place] [id number] Rosa Maria Phillips MD [address] [place], [place] [id number] Anxiety (HRC) (Primary Dx); Palpitations Social History [...] Sign Reading Time Taken Comments Blood Pressure - - Pulse - - Temperature - - Respiratory Rate - - Oxygen Saturation - - Inhaled Oxygen Concentration - - Weight 80.3 kg (177 lb) 09/15/2024 11:32 AM PRODUCTION ZONE LEADER Height - - Body Mass Index 28.57 09/12/2024 7:22 PM PRODUCTION ZONE LEADER documented in this encounter Plan of Treatment Upcoming Encounters Date Type Department Care Team (Late st Contact Info) Description 09/16/2024 9:00 AM PRODUCTION ZONE LEADER Telemedicine [facility] Partial Hospitalization Program [address] [place] [address] Rachael Rousseau MD [address] [place] [address] 09/16/2024 10:00 AM PRODUCTION ZONE LEADER Telemedicine [facility] Partial Hospitalization Program [address] [place] [address] Rachael Rousseau MD [address] [place] [address] 09/29/2024 1:00 PM PRODUCTION ZONE LEADER Telemedicine [facility] [address] [place] [address] Rosa Maria Phillips MD [address] [place] [address] documented as of this encounter Visit Diagnoses Diagnosis Anxiety (HRC)- Primary Anxiety state, unspecified Palpitations documented in this encounter Care Teams Mobile Heavy Equipment Operator Relationship Specialty Start Date End Date Margot Huang PA-C [address] [place] [address] PCP - General Physician Brake Shoe Rebuilder 11/13/16 documented as of this encounter
--- OUTSIDE RECORDS SUMMARY | 2024-09-16 00:38 | XMS_ITS | Encounter Summary ---
Author Organization [employer] Address [address] [address] Care Team Providers Care Chemical Educator Name Role Phone Margot Huang PA-C Primary Care Provider [phone] Encounter Details Date Type Department Care Team (Late st Contact Info) Description 09/14/2024 [facility]phone [facility] [address] [place] [address] Soniya Juan, CORROSION TECHNICIAN [address] [place] [address] Social History Tobacco Use Types Packs/Day Years [...] st Contact Info) Description 09/16/2024 9:00 AM AUDIO/VISUAL OPERATOR Telemedicine [facility] Partial Hospitalization Program [address] [place] [address] Rachael Rousseau MD [address] [place] [id number] 09/16/2024 10:00 AM AUDIO/VISUAL OPERATOR Telemedicine [facility] Partial Hospitalization Program [address] [place] [address] Rachael Rousseau MD [address] [place] [address] 09/29/2024 1:00 PM AUDIO/VISUAL OPERATOR [facility] [address] [place] [address] Rosa Maria Phillips MD [address] [place] [address] documented as of this encounter Visit Diagnoses Not on filedocumented in this encounter Care Teams Chemical Educator Relationship Specialty Start Date End Date Margot Huang PA-C [address] [place] [address] PCP - General Physician Curriculum Advisory Teacher 11/13/16 documented as of this encounter
--- OUTSIDE RECORDS SUMMARY | 2024-09-16 00:39 | XMS_ITS | Encounter Summary ---
Author Organization [employer] Address [address] [place] [address] Care Team Providers Care Lead Sql Developer Name Role Phone Margot Huang PA-C Primary Care Provider [phone] Reason for Visit * Reason Comments QUESTIONS, GENERAL Entered automaticall y based on patient selection in [employer]. Encounter Details Date Type Department Care Team (Late Contact Info) Description 08/17/2024 3:30 PM CDT E-Visit [place] [address] [facility] [address] [place] [phone] Jim Esparza PA-C [address] [place] [address] Chief Comp: QUESTIONS, GENERAL Social History Tobacco [...] Department Care Team (Late Contact Info) Description 09/16/2024 9:00 AM [facility] Program [address] [place] [address] Rachael Rousseau MD [address] [place] [address] 09/16/2024 10:00 AM DIRECTOR OF PHYSIOTHERAPY SERVICES Tele[facility]icine [facility] [address] [place] [address] Rachael Rousseau MD [address] [place] [address] 09/29/2024 1:00 PM DIRECTOR OF PHYSIOTHERAPY SERVICES [facility] [address] [place], [place] [address] Rosa Maria Phillips MD [address] [place], [place] [address] documented as of this encounter Visit Diagnoses Not on filedocumented in this encounter Care Teams Lead Sql Developer Relationship Specialty Start Date End Date Margot Huang PA-C [address] [place] [address] PCP - General Physician Front End Loader Driver 11/13/16 documented as of this encounter
--- OUTSIDE RECORDS SUMMARY | 2024-09-16 00:39 | XMS_ITS | Encounter Summary ---
Author Organization [employer] Address [address], [place] [address] Care Team Providers Care Dental Nurse Name Role Phone Margot Huang PA-C Primary Care Provider [phone] Reason for Referral * Consult/Transfer Care (Routine) - New Request Specialty Diagnoses / Procedures Referred By Sukhi hassan Referred To Contact Diagnoses ROSE MARY (generalized anxiety disorder) (HRC) Claudia Berger MD [address] [place] [id number] Referral ID Status Reason Start Date Expiration Date V isits Requested Visits Authorized [id number] New Request 09/14/2024 12/14/2025 1 1 Scheduling Instructions Your clinician has placed an order for the [facility]Bridge Program at [facility]. A Actuarial Assistant will be reaching out to you to help facilitate next steps in your care. If you have any questions or concerns in the meantime, please feel free to call [phone]. Question Answer Appointment Urgency Non-Urgent RAL DRIVER Reason for Visit * Reason Comments CRISIS EVALUATION--ED Encounter Details Date Type Department Care Team (Late st Contact Info) Description 09/14/2024 11:18 AM FUNERAL DRIVER - 09/14/2024 5:08 PM FUNERAL DRIVER Emergency [facility] [address] [place] [address] [phone] Guru Gilliland PA-C [address] [place] [address] [phone] ROSE MARY (generalized anxiety disorder) (HRC) (Primary Dx); Anxiety (HRC); Panic disorder (HRC) Discharge Disposition: Home Social History Tobacco Use [...] Sign Reading Time Taken Comments Blood Pressure 143/88 09/14/2024 11:04 AM FUNERAL DRIVER Pulse 59 09/14/2024 12:39 PM FUNERAL DRIVER Temperature 36.8 C (98.2 F) 09/14/2024 11:04 AM FUNERAL DRIVER Respiratory Rate 20 09/14/2024 12:39 PM FUNERAL DRIVER Oxygen Saturation 98% 09/14/2024 12:39 PM FUNERAL DRIVER Inhaled Oxygen Concentration - - Weight - - Height - - Body Mass Index - - documented in this encounter Discharge Instructions * Discharge Instructions* Guru Gilliland PA-C - 09/14/2024 4:57 PM FUNERAL DRIVER You have been seen for anxiety. -At this time, plan for you to start Daybridge program on 09/16/2024. - If you have symptoms of a panic attack, I recommend you use your PRN medications as prescribed. - If not successful, please seek medical attention. Thank you for trusting our team with your care. RAL DRIVER documented in this encounter Medications at Time [...] pills per month. 9 Tablet 11 08/19/2024 hydrOXYzine HCl (ATARAX) 25 MG tabletIndications:Anxiet y (HRC) Take 1 Tablet (25 mg) by mouth every 6 hours as needed. 30 Tablet 1 08/19/2024 09/15/2024 LORazepam (ATIVAN) 0.5 MG tabletIndications:Anxiet y (HRC) Take 1 Tablet (0.5 mg) by mouth every 6 hours as needed for Anxiety. 10 Tablet 09/15/2024 09/15/2024 LORazepam (ATIVAN) 0.5 MG tabletIndications:Anxiet y (HRC) Take 1 Tablet (0.5 mg) by mouth every 6 hours as needed for Anxiety. 15 Tablet 08/13/2024 09/15/2024 documented as of this encounter Consult Notes * Claudia Berger MD - 09/14/2024 1:22 PM CSTAssociated Order(s): PSYCHIATRY CONSULT Chart reviewed, case discussed with ED staff, patient seen this afternoon. In short, Kacey is a 34 yo F presenting with worsening anxiety at home after recent discharge from inpatient psychiatry yesterday. Today during interview, she presents logical and polite and cooperative, however is very tearful and clearly anxious. She acknowledges feeling extremely anxious over the past few months, related to a diagnosis of cellulitis that caused her illness anxiety to ramp up to a level it is has never been at before. 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 She tells me she was awake till 4 am last night worrying about her heart rate, after having just discharged from the hospital earlier yesterday. She denies any alcohol or drug use. Denies any recent SI/HI/AVH. She acknowledges need for more structure in her life, as she has been unemployed for multiple months and tends to isolate at home during the day while her boyfriend works. She has even had to have her aunt take care of her 6 year old daughter because of how anxious she has been feeling. She has felt too overwhelmed to try and set up PHP appointments for herself or to start working again. She is agreeable to PHP referral today. Overall, we discussed how she needs more structure and likely more intensive therapy to work on extreme illness anxiety symptoms. She affirms compliance with all of her medications, and does currently have an individual therapist whom she just started seeing weekly. We discussed likely need for a psychiatrist referral given that she has tried a couple differ ent SSRIs with limited improvement in her anxiety. Discussed utility of crisis beds in the future if she is experiencing panic attacks while home alone in the future. For now, we will place [facility] and hopefully have the patient complete an intake while here boarding in the ED. I do not feel that her current presentation requires inpatient psychiatric admission again, as her presenting issue primarily revolve around debilitating anxiety that is best treated with psychotherapy. She has no prior suicide attempts, has not made any preparatory efforts to hurt herself in the past few weeks. She cites boyfriend and multiple family members as supportive for her in the community. Would favor discharge to crisis bed or extended family member's house after [facility] completed if she feels like she needs somewhere to stay short term besides her house. Mental Status Exam: Vitals: 09/14/24 1239 BP: Pulse: (!) 59 Resp: 20 Temp: Appearance: alert, neatly groomed and dressed in casual clothing, appears stated age Behavior: engaged, cooperative, tearful, good eye contact, paces around in room Gait and Station: seated, no apparent abnormalities Muscle strength and tone: No apparent abnormalities, no stiffness or tremor noted in b/l UE and LE. Speech: normal in rate and volume, fluent, normal in amount and prosody, spontaneous Language: intact Thought process: logical and goal-directed, perseverative on anxiety and worry about being medically sick Thought content: without delusions or hallucinations, no active suicidal ideation or homicidal ideation Associations: loosening of associations Mood: I don't feel like myself Affect: tearful, anxious Orientation: oriented to person, place, time, situation Attention: intact, able to hold attention throughout entire interview Memory: recent and remote memory intact Insight: good Judgment: fair Diagnosis: Generalized anxiety disorder- illness anxiety disorder component Plan: [facility] referral- needs PHP or intensive outpatient therapy first and foremost. No medication changes today- needs psychiatry follow up for any potential cross tapering of currentanxiety medications. Claudia Berger MD RAL DRIVER * Jasmyn Rae, [facility] - 09/14/2024 11:52 AM CST [facility] Emergency Department Social Work Crisis Assessment Current and Past Diagnoses: Anxiety Narrative: The patient is a 34 y.o. female who comes to the ED alone. Per ED triage note: Chief complaint: anxiety Symptoms/background/relevant history (narrative): Patient states was here on Saturday. Was prescribed a beta narda to try to help with the anxiety and panic attacks. Patient states took one today. Now concerned that her HR is going down into the 50s. States that she is also lightheaded. Patient also still feeling anxious and having panic attacks. What is most important to you about your ER visit today? Make sure my heart is not going to stop SW met with pt in her assigned Gamma pod room for a team assessment with PADMINI. Pt presents as tearful, anxious, and restless. Pt states that she is here because she has been too scared to sleep because she's fearful she may in her sleep. She also feels like her Lexapro isn't working and she states that she feels she has been in flight or fight for weeks. Pt is having suicidal thoughts but they are passive not active. She states that she doesn't actually want to she just feels overwhelmed by her panic and anxiety. Pt has a [id number] daughter who has been staying at her aunt's house recently because she feels she cannot care for her at this time. Pt is not working and states that she stays in her room and often is not able to leave or get out of her room because she is so anxious. Pt reports her sleep has been very poor because she believes her heart rate will get to low being on the new medication. Pt reports she continuously is checking her heart rate and blood pressure and she states she feels like she is crying and panicking 13/05. Pt reports she lost about 20 pounds this month and what triggered all of this was when she got cellulitis and then was fearful of getting sepsis and then becoming fearful of MS after a comment made by a doctor. Pt states she just really wants to start feeling better and will do anything to start feeling better. SW suggested an intensive day treatment program and she said she would be open to this. Pt does not currently have a psychiatrist but does see a PCP that prescribes the Lexapro. Psychiatry will assess pt and make any medication recommendation or changes to medications. Information from collateral (include names and phone numbers) Chart review completed Does patient have legal guardian? (include names, phone numbers, and document contact with guardian) None Does the patient have access to the means or the method related to their plan while in the hospital? N/A Does the patient have access to the means or the method related to their plan after discharge? N/A Clinical Symptoms: Anxiety and/or panic, Appetite changes, Frequent crying spells, Weight changes, Sleep disturbance Dangerousness (include any known information regarding historical or current homicidal, sexual, or physically aggressive behaviors): None reported Current Aggression towards others: No Does the patient have access to firearms? No Suicide Assessment/SIB Passive SI, no plan Current Stressors and Relevant History: Medical (medical diagnoses, chronic physical pain, or other acute medical problem), Triggering events leading to humiliation, shame, and/or despair (e.g. loss of relationship, financial or health status) (real or anticipated) Protective Factors: Identifies reason for living, Supportive social network of family or friends Family History: (None reported) Living Situation: Lives with boyfriend Legal Issues (include comments regarding probation, incarcerations, etc): None Employment/Income: None currently, recently quit job of 13 years Mental Health Care: Hospitalizations: Yes, one admission [facility], 09/12-09/13 Substance use/abuse: Denies Current Substance Use Behavior in ED: Anxious Cooperative Crying Mental Status: Affect: Labile Appearance: Appropriate to weather/situation Eye Contact: Variable Insight: Intact Intellectual Functioning: Within Normal Limits Mood: Anxious and Depressed Orientation: Person: Yes , Situation: Yes, Place: Yes , and Time: Yes Speech: Regular rate and rhythm Thought Process: Coherent and Logical Clinical decision making/rationale: Pt with the past psych history significant for ROSE MARY who presentsto the ED with panic and anxiety. Pt is experiencing passive suicidal ideation, but was able to identify protective factors, calming techniques and discuss a safety plan with SW, which includes utilizing crisis numbers and/or returning to the ED if SI worsens or persists. Collateral agrees that thept is not an immediate danger to self or others and would benefit from community resources vs inpatient hospitalization. While patient would likely benefit from MH treatment, pt does not meet criteria for an emergency 72 hour hold and will be d/c to home with PHP referral per pt request with resources for stabilization in the community. Suicide Risk: Low Plan: Patient will be discharged home with PHP referral. Discussed with: Sosa Lazo PA-C and Dr. Morrissey, Psychiatry PHILL Young 09/14/2024, 12:48 PM RAL DRIVER documented in this encounter ED Notes * Solis Bledsoe RN - 09/14/2024 5:07 PM CST [facility] ED Nursing Discharge Note Arrival Information: Patient arrived: Ambulance Patient escorted by: EMS/Ambulance Discharge Information: Patient discharged: Home Patient accompanied by: Transport mode: Discharge instructions given and explained to patient: Equipment and education provided to patient:Yes Patient appropriately dressed for weather: Yes manager image/social worker delinquency prevention consulted prior to discharge: Yes LDA in [...] Yes Legal Status Orders (From admission, onward) None RAL DRIVER * Solis Bledsoe RN - 09/14/2024 3:51 PM CST Assume care of pt. Pt is sitting in room, she is calm and cooperative. Will continue to monitor. RAL DRIVER * Leilani Cervantes RN - 09/14/2024 3:23 PM CST Report given to Ernesto Lui RN RAL DRIVER * Leilani Cervantes RN - 09/14/2024 2:05 PM CST Pt declines Zofran and Ativan Stating I feel like Im dying,Im dying inside PA-Dasha aware RAL DRIVER * Sosa Lazo PA-C - 09/14/2024 11:27 AM CST [facility] Emergency Medicine Visit Note Chief Complaint: CRISIS EVALUATION--ED HPI Kacey Hines is a 34 y.o. old female with generalized anxiety disorder, depression, migraine headaches presenting for crisis evaluation and concerns about bradycardia. Patient was admitted overnight from 09/12-09/13 or anxiety and panic attacks. Patient states for past 6 weeks, she has had debilitating anxiety. She feels symptoms have gotten even worse since starting on Lexapro 4-5 weeks ago. Patient was prescribed atenolol for anxiety several weeks ago but took it for the 1st time yesterday. Her last dose was at 9:00 a.m. today. Since taking the medication, her heart rate has been lower which is causing even more anxiety. Patient feels a bit lightheaded. She could not sleep last night due to concern that she was going to while she was sleeping. Patient started to have passive suicidal thoughts this morning. Denies any plan or actual desire to . States she just does not want to live this way. Patient's primary care provider has been prescribing her medications. She does not have a psychiatrist. Triage Vitals [09/14/24 1104] Temp 98.2 ??F (36.8 ??C) Temp src Oral Pulse 66 Resp 18 BP (!) 143/88 SpO2 98 % Physical Exam Constitutional: alert, no acute distress Head: normocephalic, atraumatic. Eyes: pupils 5 mm, equal and reactive. Conjunctiva clear bilaterally. Nose: no drainage Mouth: oral mucosa pink and moist. Ears: External canal clear. Neck: Neck is supple. Cardiac: Regular rate and rhythm. No murmurs. +2/4 radial pulses, bilaterally. Pulmonary: no increased work of breathing. Normal respiratory rate. Breath sounds clear to auscultation bilaterally. Musculoskeletal: moves all extremities without difficulty. No edema of lower extremities. Neurological: alert and oriented x3. Speech is clear and fluent. Ambulates with steady gait. Skin: warm and dry. No rashes. Psych: tearful, extremely anxious, depressed affect, speech is not pressured. MDM: Kacey Hines is a 34 y.o. old female with concerns that her heart is going to stop since starting on atenolol. Patient is very anxious and tearful today. Vital signs notable for mild hypertension, otherwise normal. EKG was obtained in triage which demonstrates sinus rhythm at rate of 64 without arrhythmia or AV node dysfunction. At time of exam, patient's heart rate is in the 50s but regular. Reviewed patient's psych admission and several recent medical visits for which she was evaluated for tachycardia. She had described fairly significant health anxiety during her psych admission and unfortunately, her vital sign changes since taking atenolol have worsened this. She has not had any syncopal episodes or hypotension (checks BP at home) since starting the medication. Patient has been unable to function at home in his not eating, drinking or sleeping. She is having new passive suicidal ideation but does not have a plan, desire or intent. Plan for psychiatry evaluation to evaluate medications and possible need for readmission. Sosa Lazo PA-C ED Course as of 09/14/24 165 Mon Sep 14, 2024 1343 Psychiatrist met patient. Not recommending admission at this time but feels patient would benefit from partial hospitalization program. dope worker spoke with [facility] staff. Someone from [facility] will come this afternoon to assess the patient. [LS] 1529 Sign out received, assumed care at this time. 34F with history of anxiety, OCD, recently started on atenolol yesterday. Presents with anxiety, and panic attacks surrounding new medication, believing that her heart would stop. Evaluated by Psychiatry. [facility]ending [facility] intake evaluation. If not able to go to [facility] immediately, follow up with social work for other discharge planning. [TJ] 1652 [facility] did complete their assessment. Patient will be discharged home, with plan to start inpatient treatment on 09/16/2024. [TJ] 1653 Discharge: Findings were discussed. Additional verbal instructions were discussed as well. Instructed to follow up with [facility] 09/16/2024. Also discussed specific warning signs and instructedto return to the ED if there are any concerns. Understanding of instructions was voiced, questions were answered and the patient was discharged. [TJ] ED Course User Index [LS] Sosa Lazo PA-C [TJ] Guru Gilliland PA-C Clinical Impressions as of 09/14/241656 Anxiety (HRC) Panic disorder (HRC) RAL DRIVER * Leilani Cervantes, RN - 09/14/2024 11:27 AM CST Received pt from triage Pt wanded on arrival per Security Pt appears anxious Pt awaiting Provider eval Pt denies need for anything while waiting RAL DRIVER documented in this encounter Plan of Treatment Upcoming Encounters Date Type Department Care Team (Late st Contact Info) Description 09/16/2024 9:00 AM FUNERAL DRIVER Telemedicine [facility] Partial Hospitalization Program [address] [place] [id number] Rachael Rousseau MD [address] [place] [address] 09/16/2024 10:00 AM FUNERAL DRIVER Telemedicine [facility] Partial Hospitalization Program [address] [place] [id number] Rachael Rousseau MD [address] [place] [id number] 09/29/2024 1:00 PM FUNERAL DRIVER Telemedicine [facility] [address] [place], [place] [address] Rosa Maria Phillips MD [address] [place], [place] [address] Scheduled Referrals Name Type Priority Associated Diagnoses Orde r Schedule [facility] Program Screening Adult Referral Routine ROSE MARY (generalized anxiety disorder) (HRC) Ordered: 09/14/2024 documented as of this encounter Procedures Procedure Name Priority Date/Time Associated Diagnosis Comments ECG-ROUTINE 12 LEAD; INTRPT & REPRT STAT 09/14/2024 11:16 AM FUNERAL DRIVER documented in this encounter Results * ECG 12-LEAD ROUTINE (09/14/2024 11:16 AM FUNERAL DRIVER) Ventricular Rate 64 BPM [facility] Atrial Rate 64 BPM [facility] P-R Interval 126 ms [facility] QRS Duration 80 ms [facility] QT 442 ms [facility] QTc 455 ms [facility] P [employer] [place] 64 degrees [facility] R [employer] [place] 78 degrees [facility] T [employer] [place] 46 degrees [facility] 09/14/2024 11:1 6 AM FUNERAL DRIVER Narrative [facility] - 09/14/2024 12:36 PM FUNERAL DRIVER Sinus rhythm Normal ECG When compared with ECG of 07-SEP-2024 10:26, Vent. rate has decreased BY 41 BPM T wave inversion no longer evident in Inferior leads Confirmed by Carlos Manuel Monzon ([id number]) on 09/14/2024 12:36:19 PM Procedure Note Carlos Manuel Monzon MD - 09/14/2024 Sinus rhythm Normal ECG When compared with ECG of 07-SEP-2024 10:26, Vent. rate has decreased BY 41 BPM T wave inversion no longer evident in Inferior leads Confirmed by Carlos Manuel Monzon ([id number]) on 09/14/2024 12:36:19 PM Jay Epps MD EKG [facility] [address] [place] [address] documented in this encounter Visit Diagnoses Diagnosis ROSE MARY (generalized anxiety disorder) (HRC)- Primary Generalized anxiety disorder Anxiety (HRC) Anxiety state, unspecified Panic disorder (HRC) Panic disorder without agoraphobia Generalized anxiety disorder (HRC) Generalized anxiety disorder * Triage Assessment Note - Nay Gonzalez RN - 09/14/2024 11:05 AM FUNERAL DRIVER Chief complaint: anxiety Symptoms/background/relevant history (narrative): Patient states was here on Saturday. Was prescribed a beta narda to try to help with the anxiety and panic attacks. Patient states took one today. Now concerned that her HR is going down into the 50s. States that she is also lightheaded. Patient also still feeling anxious and having panic attacks. What is most important to you about your ER visit today? Make sure my heart is not going to stop Initial falls risk factors: Not applicable RAL DRIVER * Triage Assessment Note - Anila Diez RN - 09/14/2024 11:03 AM FUNERAL DRIVER Patient arrived by Rome[place] from home with chief complaint: crisis evaluation Symptoms/background (EMS narrative): Patient seen here Saturday. Comes in after feeling very anxious.Patient tearful on arrival. Anxiety has been so severe she's ready to give up on life but denies SI. Has had multiple life events. RAL DRIVER documented in this encounter Active and Recently Administered Medications Times are shown in FUNERAL DRIVER. Scheduled Medication Order 09/12/2024 09/13/2024 09/14/2024 LORazepam (ATIVAN) tablet 1 mg 1 mg, Oral, ONCE, On Sat09/14/24 at 1400, For 1 dose 1404 (Not Given - Pr ovider: Leilani Cervantes RN - Reason: Patient/family refused) ondansetron (ZOFRAN-ODT) disintegrating tablet 4 mg 4 mg, Oral, ONCE, On Sat09/14/24 at 1315, For 1 dose, Do not swallow tablet whole. Allow to dissolve on the tongue without chewing. 1304 (Not Given - Pr ovider: Nay Gonzalez RN - Reason: Patient/family refused) documented in this encounter Care Teams Dental Nurse Relationship Specialty Start Date End Date Margot Huang PA-C [address] [place] [address] PCP - General Physician Tool Setter 11/13/16 documented as of this encounter
--- OUTSIDE RECORDS SUMMARY | 2024-09-16 00:39 | XMS_ITS | Encounter Summary ---
Author Organization [employer] Address [address], [place] [address] Care Team Providers Care Software Deployment Engineer Name Role Phone Margot Huang PA-C Primary Care Provider [phone] Reason for Referral * Procedure/Equipment (Routine) - New Request Specialty Diagnoses / Procedures Referred By Contac t Referred To Contact Diagnoses Tachycardia Procedures Echocardiogram Marika Gunter PA-C [address] [place] [address] Referral ID Status Reason Start Date Expiration Date V isits Requested Visits Authorized [id number] New Request 09/07/2024 12/07/2025 1 1 UTIVE ASSISTANT TO GENERAL COUNSEL Reason for Visit * Procedure/Equipment (Routine) - New Request Specialty Diagnoses / Procedures Referred By Contac t Referred To Contact Diagnoses Tachycardia Procedures Echocardiogram Marika Gunter PA-C [address] [place] [address] Referral ID Status Reason Start Date Expiration Date V isits Requested Visits Authorized [id number] New Request 09/07/2024 12/07/2025 1 1 Encounter Details Date Type Department Care Team (Latest Contact Info) Description 09/07/2024 1:41 PM EXECUTIVE ASSISTANT TO GENERAL COUNSEL - 09/07/2024 11:59 PM EXECUTIVE ASSISTANT TO GENERAL COUNSEL [facility] Echocardiogram [address] [place] [address] Tachycardia Discharge Disposition: Home Social History Tobacco Use [...] on file documented as of this encounter Medications at Time of Discharge Medication Sig Dispensed Refills Start Date End Date escitalopram oxalate (LEXAPRO) 20 MG tabletIndications:anxiet y/depression Take 1 Tablet (20 mg) by mouth daily. 30 Tablet 3 08/13/2024 08/13/2025 rizatriptan (MAXALT) 10 MG tabletIndications:Intrac table migraine with aura without status migrainosus 1 tab po at onset of migraine, 1 tab po 2 hrs later if needed. Max 9 pills per month. 9 Tablet 11 08/19/2024 atenolol (TENORMIN) 25 MG tabletIndications:Intrac table migraine with aura without status migrainosus,Anxiety (HRC) Take 0.5 Tablets (12.5 mg) by mouth daily. 45 Tablet 3 08/19/2024 09/08/2024 hydrOXYzine HCl (ATARAX) 25 MG tabletIndications:Anxiet y (HRC) Take 1 Tablet (25 mg) by mouth every 6 hours as needed. 30 Tablet 1 08/19/2024 09/15/2024 LORazepam (ATIVAN) 0.5 MG tabletIndications:Anxiet y (HRC) Take 1 Tablet (0.5 mg) by mouth every 6 hours as needed for Anxiety. 15 Tablet 08/13/2024 09/15/2024 documented as of this encounter Plan of Treatment Upcoming Encounters Date Type Department Care Team (Late st Contact Info) Description 09/16/2024 9:00 AM EXECUTIVE ASSISTANT TO GENERAL COUNSEL Telemedicine [facility] Partial Hospitalization Program [address] [place] [address] Rachael Rousseau MD [address] [place] [address] 09/16/2024 10:00 AM EXECUTIVE ASSISTANT TO GENERAL COUNSEL Telemedicine [facility] Hospital[facility] Program [address] [place] [address] Rachael Rousseau MD [address] [place] [address] 09/29/2024 1:00 PM EXECUTIVE ASSISTANT TO GENERAL COUNSEL [facility] [address] [place], [place] [address] Rosa Maria Phillips MD [address] [place], [place] [address] documented as of this encounter Procedures Procedure Name Priority Date/Time Associated Diagnosis Comments ECHOCARDIOGRAM STAT 09/07/2024 1:44 PM EXECUTIVE ASSISTANT TO GENERAL COUNSEL Tachycardia documented in this encounter Results * Echocardiogram (09/07/2024 1:44 PM EXECUTIVE ASSISTANT TO GENERAL COUNSEL) 09/07/2024 1:44 PM EXECUTIVE ASSISTANT TO GENERAL COUNSEL Narrative PN ECHO - 09/07/2024 3:05 PM EXECUTIVE ASSISTANT TO GENERAL COUNSEL Procedure type: ECHOCARDIOGRAM Procedure 09/07/2024 1:44 PM [...] Female Procedure Staff Interpreting MARA CONTRERAS MD Gas Singer: Ocean Biologist: PETAR JEAN Ordering Provider: JESSICA Dee Primary Provider: JESSICA Dee Electronically signed by MARA CONTRERAS MD (Interpreting Gas Singer) on at 3:04 PM Procedure Note Mara [...] Female Procedure Staff Interpreting MARA CONTRERAS MD Gas Singer: Ocean Biologist: PETAR JEAN Ordering Provider: JESSICA Dee Primary Provider: JESSICA Dee Electronically signed by MARA CONTRERAS MD (Interpreting Gas Singer) on at 3:04 PM Marika Gunter PA-C ET ECHO ORDERABLE S Performing Organization Address City/State/[facility] Co de Phone Number PN ECHO documented in this encounter Visit Diagnoses Diagnosis Tachycardia Tachycardia, unspecified documented in this encounter Care Teams Software Deployment Engineer Relationship Specialty Start Date End Date Margot Huang PA-C [address] [place] [address] PCP - General Physician Negative Notcher 11/13/16 documented as of this encounter
--- OUTSIDE RECORDS SUMMARY | 2024-09-16 00:39 | XMS_ITS | Encounter Summary ---
Author Organization [facility] Address [address] [place] [address] Care Team Providers Care Supervisor Home Economics Name Role Phone Margot Huang PA-C Primary Care Provider [phone] Encounter Details Date Type Department Care Team (Late st Contact Info) Description 08/24/2024 E-Visit [facility] [address] [place] [address] Mychart, [place] [address] Social History Tobacco Use Types Packs/Day Years [...] (Late Contact Info) Description 09/16/2024 9:00 AM WOOD HANDLER Telemedicine [facility] Partial Hospitalization Program [address] [place] [address] Rachael Rousseau MD [address] [place] [address] 09/16/2024 10:00 AM WOOD HANDLER Telemedicine [facility] Partial Hospitalization Program [address] [place] [address] Rachael Rousseau MD [address] [place] [address] 09/29/2024 1:00 PM WOOD HANDLER Telemedicine [facility] [address] [place], [place] [address] Rosa Maria Phillips MD [address] [place], [place] [address] documented as of this encounter Visit Diagnoses Not on filedocumented in this encounter Care Teams Supervisor Home Economics Relationship Specialty Start Date End Date Margot Huang PA-C [address] [place] [address] PCP - General Physician Uptwister Tender 11/13/16 documented as of this encounter
--- OUTSIDE RECORDS SUMMARY | 2024-09-16 00:39 | XMS_ITS | Encounter Summary ---
Author Organization [employer] Address [address] [address] Care Team Providers Care Concrete Vault Maker Name Role Phone Margot Huang PA-C Primary Care Provider [phone] Reason for Referral * Consult/Transfer Care (Routine) - New Request Specialty Diagnoses / Procedures Referred By Sukhi hassan Referred To Contact Diagnoses Anxiety (HRC) Rosa Maria Phillips MD [address] [place] [address] Referral ID Status Reason Start Date Expiration Date V isits Requested Visits Authorized [id number] New Request 08/19/2024 11/18/2025 1 1 Scheduling Instructions Your clinician has recommended an appointment with Behavioral Health. You may call [phone] to schedule your appointment. This recommended service/s [...] Description 08/19/2024 2:30 PM CDT [facility] [address] [place] [id number] Rosa Maria Phillips MD [address] [place] [address] Anxiety (HRC) (Primary Dx); Intractable [...] List Diagnosis ROSE MARY (generalized anxiety disorder) ([facility]) History of depression Migraine with aura and without status migrainosus, not intractable S/P primary low transverse Gestational hypertension PAST MEDICAL HISTORY : Past Medical History: Diagnosis Date Bipolar affect, depressed ([facility]) Bipolar affective disorder ([facility]) 07/28/2009 Cellulitis of right lower extremity 07/08/2024 Treated at outside urgent care - treated with oral Keflex QID x 10 days Depression ([facility]) Posttraumatic stress disorder ([facility]) 07/28/2009 Right foot pain [...] Not on file Occupational History 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 [place], [place] [address] Rosa Maria Phillips MD [address] [place], [place] [address] Scheduled Referrals Name Type Priority Associated Diagnoses Orde r Schedule Behavioral Health Adult/Peds Referral Routine Anxiety (HRC) Ordered: 08/19/2024 documented as of this encounter Visit Diagnoses Diagnosis Anxiety (HRC)- Primary Anxiety state, unspecified Intractable migraine with aura without status migrainosus Migraine with aura, with intractable migraine, so stated, without mention of status migrainosus documented in this encounter Care Teams Concrete Vault Maker Relationship Specialty Start Date End Date Margot Huang PA-C [address] [place] [address] PCP - General Physician Analysis Consultant 11/13/16 documented as of this encounter
--- OUTSIDE RECORDS SUMMARY | 2024-09-16 00:39 | XMS_ITS | Encounter Summary ---
Author Organization [employer] Address [address] [address] Care Team Providers Care Health And Safety Inspector Name Role Phone Margot Huang PA-C Primary Care Provider [phone] Reason for Visit * Reason Comments ANXIETY * Consult/Transfer Care (Routine) - New Request Specialty Diagnoses / Procedures Referred By Sukhi t Referred To Contact Diagnoses Low back pain, unspecified back pain laterality, unspecified chronicity, unspecified whether sciatica present Right calf pain Antonia Ya PA-C [address] [place] [address] Referral ID Status Reason Start Date Expiration Date V isits Requested Visits Authorized [id number] New Request 08/11/2024 11/09/2024 1 1 Encounter Details Date Type Department Care Team (Late st Contact Info) Description 08/13/2024 9:00 AM CDT Office Visit [place] [facility] [facility] [address] [place] [phone] Jim Esparza PA-C [address] [place] [address] Anxiety (HRC) (Primary Dx); Radiculopathy of lumbar [...] 2). Right leg pain/numbness, low back pain: [place] related to lumbar radiculopathy. She was seen [...] with sacroiliitis. She has been doing some tire care manager and Naproxen prescribed in . Review of [...] st Contact Info) Description 09/16/2024 9:00 AM FILE SYSTEM INSTALLER Telemedicine [facility] Partial Hospitalization Program [address] [place] [address] Rachael Rousseau MD [address] [address] 09/16/2024 10:00 AM FILE SYSTEM INSTALLER Telemedicine [facility] Partial Hospitalization Program [address] [place] [address] Rachael Rousseau MD [address] [address] 09/29/2024 1:00 PM FILE SYSTEM INSTALLER Telemedicine [address] [place] [address] Rosa Maria Phillips MD [address] [place], [place] [address] documented as of this encounter Visit Diagnoses Diagnosis Anxiety (HRC)- Primary Anxiety state, unspecified Radiculopathy of lumbar region Thoracic or lumbosacral neuritis or radiculitis, unspecified Sacroiliitis (HRC) Sacroiliitis, not elsewhere classified documented in this encounter Care Teams Health And Safety Inspector Relationship Specialty Start Date End Date Margot Huang PA-C [address] [place] [address] PCP - General Physician Stone Polisher Machine 11/13/16 documented as of this encounter
--- OUTSIDE RECORDS SUMMARY | 2024-09-16 00:39 | XMS_ITS | Encounter Summary ---
Author Organization [employer] Address [address], [place] [address] Care Team Providers Care Microfilm Mounter Name Role Phone Margot Huang PA-C Primary Care Provider [phone] Reason for Referral * Procedure/Equipment (Routine) - New Request Specialty Diagnoses / Procedures Referred By Sukhi t Referred To Contact Diagnoses Tachycardia Procedures Echocardiogram Marika Gunter PA-C [address] [place] [address] Referral ID Status Reason Start Date Expiration Date V isits Requested Visits Authorized [id number] New Request 09/07/2024 12/07/2025 1 1 TER AND CUTTER OPERATOR Reason for Visit * Reason Comments TACHYCARDIA Encounter Details Date Type Department Care Team (Late st Contact Info) Description 09/07/2024 10:40 AM SLITTER AND CUTTER OPERATOR Office Visit [place] [address] [facility] [address] [place] [phone] Marika Gunter PA-C [address] [place], [place] [phone] Tachycardia Social History Tobacco Use Types Packs/Day [...] Comments Blood Pressure 153/92 09/07/2024 10:20 AM SLITTER AND CUTTER OPERATOR Pulse 106 09/07/2024 10:20 AM SLITTER AND CUTTER OPERATOR Temperature 36.9 C (98.5 F) 09/07/2024 10:20 AM SLITTER AND CUTTER OPERATOR Respiratory Rate 16 09/07/2024 10:20 AM SLITTER AND CUTTER OPERATOR Oxygen Saturation 99% 09/07/2024 10:20 AM SLITTER AND CUTTER OPERATOR Inhaled Oxygen Concentration - - Weight - - Height - - Body Mass Index - - documented in this encounter Patient Instructions * Patient Instructions* Marika Gunter PA-C - 09/07/2024 10:40 AM SLITTER AND CUTTER OPERATOR Images from the original note were not [...] concerning symptoms (or for after hours concerns) Sujata Jamison - For Scheduling Needs Please Call [phone] Thank you for allowing me to assist you with your healthcare needs today, I hope you feel better! Marika Gunter PA-C Urgent Care Provider C[facility] HERE [place] [address] [address] [facility] [phone] Clinic Date of visit: 09/07/2024 To whom it may concern, Please excuse Kacey Watterswoodner and/or caregiver from work/school/prior obligations 09/07/2024 - 09/08/2024 due to a healthcare visit. Thank you, Marika Gunter PA-C Electronically signed 09/07/2024 11:34 AM by Marika Gunter PA-C LAB AND/OR IMAGING RESULTS FROM TODAYS VISIT Review any lab work or imaging studies done today with primary care at your next visit XR Chest 2 Views Result Date: 09/04/2024 EXAM: CHEST 2 VIEWS LOCATION: [facility] DATE: 09/04/2024 INDICATION: Chest pain. [...] QT 340 ms QTc 449 ms P [place] 71 degrees R [place] 87 degrees T [place] 2 degrees TER AND CUTTER OPERATOR documented in this encounter Progress Notes * Marika Gunter PA-C - 09/07/2024 10:40 AM CST [place] [address] Urgent Care Provider Note Patient: Kacey Hines [...] a chest x-ray done 09/04/2024 in the [facility] system that was negative Labs have revealed [...] she had a bedside echo done at [facility] that was normal. I did not call and consult with on-call rn camp and discussed the case with him. He [...] Date: 09/04/2024 EXAM: CHEST 2 VIEWS LOCATION: [facility] DATE: 09/04/2024 INDICATION: Chest pain. [...] this technique. INTERVENTIONS: PRIOR HISTORY Reviewed via [facility] Chart Review/CareEverywhere/Discussion with Patient Medications Allergies Past Medical/Surgical History Family/Social History DISPOSITION Discharge Home Marika Gunter PA-C [place] [address] Urgent Care There are no Patient Instructions on file for this visit. TER AND CUTTER OPERATOR documented in this encounter Nursing Notes [...] 5 weeks. Stopped in February and restarted. TER AND CUTTER OPERATOR documented in this encounter Plan of Treatment Upcoming Encounters Date Type Department Care Team (Late st Contact Info) Description 09/16/2024 9:00 AM SLITTER AND CUTTER OPERATOR Telemedicine [facility] Partial Hospitalization Program [address] [place] [address] Rachael Rousseau MD [address] [place] [address] 09/16/2024 10:00 AM SLITTER AND CUTTER OPERATOR [facility] Partial Hospitalization Program [address] [place] [address] Rachael Rousseau MD [address] [place] [address] 09/29/2024 1:00 PM SLITTER AND CUTTER OPERATOR Telemedicine [facility] [address] [place] [address] Rosa Maria Phillips MD [address] [place], [place] [address] documented as of this encounter Procedures Procedure Name Priority Date/Time Associated Diagnosis Comments ECG 12 LEAD OUTPATIENT STAT 09/07/2024 10:26 AM SLITTER AND CUTTER OPERATOR Tachycardia documented in this encounter Results * Echocardiogram (09/07/2024 1:44 PM SLITTER AND CUTTER OPERATOR) 09/07/2024 1:44 PM SLITTER AND CUTTER OPERATOR Narrative PN ECHO - 09/07/2024 3:05 PM SLITTER AND CUTTER OPERATOR Procedure type: ECHOCARDIOGRAM Procedure 09/07/2024 1:44 PM [...] Female Procedure Staff Interpreting DESTINY CONTRERAS MD Software Engineering Manager: Medical Coordinator Pesticide Use: PETAR JEAN Ordering Provider: JESSICA Dee Primary Provider: JESSICA Dee Electronically signed by DESTINY CONTRERAS MD (Interpreting Software Engineering Manager) on at 3:04 PM Procedure Note Destiny [...] Female Procedure Staff Interpreting DESTINY CONTRERAS MD Software Engineering Manager: Medical Coordinator Pesticide Use: PETAR JEAN Ordering Provider: JESSICA Dee Primary Provider: JESSICA Dee Electronically signed by DESTINY CONTRERAS MD (Interpreting Software Engineering Manager) on at 3:04 PM Marika Gunter PA-C ET ECHO ORDERABLE S PN ECHO * ECG 12-LEAD ROUTINE (Non Lab to perform-Today)-STAT (09/07/2024 10:26 AM SLITTER AND CUTTER OPERATOR) Ventricular Rate 105 BPM [facility] Atrial Rate 105 BPM [facility] P-R Interval 130 ms MUSE [facility]HP QRS Duration 78 ms MUSE GHP QT 340 ms MUSE [facility]HP QTc 449 ms MUSE [facility]HP P [place] 71 degrees MUSE GHP R [place] 87 degrees MUSE GHP T [place] 2 degrees MUSE GHP 09/07/2024 10:2 6 AM SLITTER AND CUTTER OPERATOR Narrative MUSE [facility] - 09/07/2024 3:27 PM SLITTER AND CUTTER OPERATOR Mild Sinus tachycardia Possible Left atrial enlargement [...] PM Marika Gunter PA-C PN ECG ORDERABLES [facility] [address] [place] [address] documented in this encounter Visit Diagnoses Diagnosis Tachycardia Tachycardia, unspecified Tachycardia Tachycardia, unspecified documented in this encounter Care Teams Microfilm Mounter Relationship Specialty Start Date End Date Margot Huang PA-C [address] [place] [address] PCP - General Physician Polisher Apprentice 11/13/16 documented as of this encounter
--- OUTSIDE RECORDS SUMMARY | 2024-09-16 00:39 | XMS_ITS | Encounter Summary ---
Author Organization [employer] Address [address] [place] [address] Care Team Providers Care Lye Bath Operator Name Role Phone Margot Huang PA-C Primary Care Provider [phone] Reason for Visit * Reason Comments ANXIETY Encounter Details Date Type Department Care Team (Late st Contact Info) Description 08/26/2024 Nurse Triage [facility] [address] [facility] [place] [address] Margot Huang PA-C [address] [place] [address] ANXIETY Social History Tobacco Use Types Packs/Day [...] 3:00 PM Rosa Maria Phillips MD PRLK FM PN PRLK 09/08/2024 4:30 PM Rosa Maria Phillips MD PRLK PN PRLK Reason for Disposition Started on anti-anxiety medication and no relief Protocols used: Anxiety and Panic [id number] LATORY COMPLIANCE MANAGER documented in this encounter Plan of Treatment Upcoming Encounters Date Type Department Care Team (Late st Contact Info) Description 09/16/2024 9:00 AM REGULATORY COMPLIANCE MANAGER Telemedicine [facility] Partial Hospitalization Program [address] [place] [address] Rachael Rousseau MD [address] [place] [address] 09/16/2024 10:00 AM REGULATORY COMPLIANCE MANAGER Telemedicine [facility] Partial Hospitalization Program [address] [place] [address] Rachael Rousseau MD [address] [place] [address] 09/29/2024 1:00 PM REGULATORY COMPLIANCE MANAGER Telemedicine [facility] [address] [facility], [place] [address] Rosa Maria Phillips MD [address] [facility] [place] [id number] documented as of this encounter Visit Diagnoses Not on filedocumented in this encounter Care Teams Lye Bath Operator Relationship Specialty Start Date End Date Margot Huang PA-C [address] [place] [address] PCP - General Physician Stamping Die Maker 11/13/16 documented as of this encounter
--- OUTSIDE RECORDS SUMMARY | 2024-09-16 00:39 | XMS_ITS | Encounter Summary ---
Author Organization [employer] Address [address] [place] [address] Care Team Providers Care Development Assistant Name Role Phone Margot Huang PA-C Primary Care Provider [phone] Reason for Visit * Reason Comments Follow-up, NOS Entered automaticall y based on patient selection in [facility] [employer]. Encounter Details Date Type Department Care Team (Late st Contact Info) Description 08/26/2024 1:00 PM PORCELAIN FINISHER [facility] [address] [place], [place] [phone] Rosa Maria Phillips MD [address] [place], [place] [address] Chief Comp: Follow-up, NOS Social History Tobacco [...] to nature of sx. Ok to close. ELAIN FINISHER documented in this encounter Plan of Treatment Upcoming Encounters Date Type Department Care Team (Late st Contact Info) Description 09/16/2024 9:00 AM PORCELAIN FINISHER Telemedicine [facility] Partial Hospitalization Program [address] [place] [address] Rachael Rousseau MD [address] [place] [address] 09/16/2024 10:00 AM PORCELAIN FINISHER Telemedicine [facility] Partial Hospitalization Program [address] [place] [address] Rachael Rousseau MD [address] [place] [address] 09/29/2024 1:00 PM PORCELAIN FINISHER [facility] [address] [place], [place] [address] Rosa Maria Phillips MD [address] [place] [address] documented as of this encounter Visit Diagnoses Not on filedocumented in this encounter Care Teams Development Assistant Relationship Specialty Start Date End Date Margot Huang PA-C [address] [place] [address] PCP - General Physician Necktie Maker 11/13/16 documented as of this encounter
--- OUTSIDE RECORDS SUMMARY | 2024-09-16 00:39 | XMS_ITS | Encounter Summary ---
Author Organization [email or web address] Address [address], [place] [address] Care Team Providers Care Messenger Copy Name Role Phone Margot Huang PA-C Primary Care Provider [phone] Reason for Visit * Reason Comments TACHYCARDIA Exertional Encounter Details Date Type Department Care Team (Latest Contact Info) Description 09/04/2024 6:40 PM DAIRY STORE MANAGER Office Visit [facility] [id number] [facility] [address] [place] [address] Chely Leavitt PA-C [address] [place] [address] Tachycardia; ST segment changes on [...] Comments Blood Pressure 131/86 09/04/2024 5:58 PM DAIRY STORE MANAGER Pulse 115 09/04/2024 5:58 PM DAIRY STORE MANAGER Temperature 37.2 C (98.9 F) 09/04/2024 5:58 PM DAIRY STORE MANAGER Respiratory Rate 18 09/04/2024 5:58 PM DAIRY STORE MANAGER Oxygen Saturation 99% 09/04/2024 5:58 PM DAIRY STORE MANAGER Inhaled Oxygen Concentration - - Weight - [...] List Diagnosis ROSE MARY (generalized anxiety disorder) ([facility]) History of depression Migraine with aura [...] QT 464 ms QTc 627 ms R [place] 89 degrees T [place] 59 degrees Tachycardic. Inverted T waves in [...] her previous on file. We also contacted [facility] and they faxed us a copy of [...] cardiac rule out. Patient will go to [facility] ED. I discussed with an EN there prior to transfer. I do feel she is safe for transfer via private vehicle. She is here with her significant other. Patient verbalized understanding and agreement with the plan. Impression: 1. Tachycardia 2. ST segment changes on electrocardiogram Chely Leavitt PA-C Y STORE MANAGER documented in this encounter Nursing Notes * Alhaji Oliva LPN - 09/04/2024 6:40 PM CST Patient is here today due to elevated heart rate with exertion that has been going on for 1 weeks. Pt states she is going through some medication changes and having difficulty making sure to be eating and drinking Associated symptoms include headache, dizziness, weakness, and dry mouth. Y STORE MANAGER documented in this encounter Plan of Treatment Upcoming Encounters Date Type Department Care Team (Late st Contact Info) Description 09/16/2024 9:00 AM DAIRY STORE MANAGER Telemedicine [facility] Partial Hospitalization Program [address] [place] [id number] Rachael Rousseau MD [address] [place] [id number] 09/16/2024 10:00 AM DAIRY STORE MANAGER Telemedicine [facility] Partial Hospitalization Program [address] [place] [address] Rachael Rousseau MD [address] [place] [address] 09/29/2024 1:00 PM DAIRY STORE MANAGER Telemedicine [facility] [address] [place] [address] Rosa Maria Phillips MD [address] [place] [address] documented as of this encounter Procedures Procedure Name Priority Date/Time Associated Diagnosis Comments ECG 12 LEAD OUTPATIENT STAT 09/04/2024 6:20 PM DAIRY STORE MANAGER Tachycardia documented in this encounter Results * ECG 12-LEAD ROUTINE (Non Lab to perform-Today)-STAT (09/04/2024 6:20 PM DAIRY STORE MANAGER) Ventricular Rate 110 BPM [facility] Atrial Rate 110 BPM [facility] QRS Duration 90 ms [facility] QT 464 ms [facility] QTc 627 ms [facility] R [place] 89 degrees MUSE G[facility] T [place] 59 degrees [facility] 09/04/2024 6:20 PM DAIRY STORE MANAGER Narrative [facility] - 09/04/2024 9:17 PM DAIRY STORE MANAGER Sinus rhythm T wave abnormality, consider anterolateral [...] PM Chely Leavitt PA-C PN ECG ORDERABLES [facility] [address] [place] [address] documented in this encounter Visit Diagnoses Diagnosis Tachycardia Tachycardia, unspecified ST segment changes on electrocardiogram documented in this encounter Care Teams Messenger Copy Relationship Specialty Start Date End Date Margot Huang PA-C [id number] [place] [phone] PCP - General Physician Bus Driver/Monitor 11/13/16 documented as of this encounter
--- OUTSIDE RECORDS SUMMARY | 2024-09-16 00:39 | XMS_ITS | Encounter Summary ---
Author Organization [employer] Address [address], [place] [address] Care Team Providers Care Harness Mender Name Role Phone Margot Huang PA-C Primary Care Provider [phone] Reason for Visit * Reason Comments CRISIS EVALUATION--ED * Auth/Cert (Routine) Specialty Diagnoses / Procedures Referred By Contyara t Referred To Contact Diagnoses Anxiety (HRC) Anxiety (HRC) Referral ID Status Reason Start Date Expiration Date Visits Re quested Visits Authorized [id number] 1 1 Encounter Details Date Type Department Care Team (Latest Contact Info) Description 09/12/2024 4:18 PM [facility] - 09/13/2024 10:43 AM [facility] Hospital Encounter RH NE7 [address] [place] [address] Reji Olmedo II, MD [address] [place] [address] Anxiety (HRC) (Primary Dx) Discharge Disposition: Home Social History Tobacco Use [...] Sign Reading Time Taken Comments Blood Pressure 129/67 09/13/2024 7:59 AM [facility] Pulse 93 09/13/2024 7:59 AM [facility] Temperature 36.1 C (97 F) 09/13/2024 7:59 AM [facility] Respiratory Rate 16 09/13/2024 7:59 AM [facility] Oxygen Saturation 99% 09/13/2024 7:59 AM [facility] Inhaled Oxygen Concentration - - Weight 77.9 kg (171 lb 12.8 oz) 09/12/2024 7:22 PM [facility] Height 167.6 cm (5' 6) 09/12/2024 7:22 PM [facility] Body Mass Index 27.73 09/12/2024 7:22 PM [facility] documented in this encounter Discharge Summaries * Reji Olmedo II, MD - 09/13/2024 9:20 AM [facility] DISCHARGE SUMMARY Admission Date and Time: 09/12/2024 7:12 PM Discharge Date: 09/13/2024 Attending Practitioner: Reji Olmedo II, MD Discharge Diagnoses Principal Psychiatric Diagnoses: Generalized anxiety disorder Panic disorder Substance Use Disorders: None Reason for Hospitalization History of Present Illness taken from admission note: Kacey Hines is a 34 y.o. Female who has been admitted for anxiety/panic from the Emergency Department. The patient is being admitted on a Voluntary status. The patient carries a diagnosis of ROSE MARY and panic disorder. In interview, the patient reiterated the information reported in the ED. She described a chronic history of anxiety, but states that anxiety and panic symptoms have increased in the past 4-5 weeks. She states that around that time, she was diagnosed with cellulitis and feels that this triggered herhealth anxiety. She she describes increased panic symptoms, which she notes are largely related to racing heart and SOB, which she becomes quite distressed by. She describes herself as frequently checking her HR and BP. The level of anxiety is impairing her daily functioning. She is on leave fromher work due to anxiety. She has worked with [facility], who referred her to a therapist, but only has had one visit so far. Medication management has been through her PCP. She is most recently taking Lexapro (20mg for 4 weeks), as well as recently started on Trazodone (ED visit). She was given a prescription for Atenolol about a month ago, but used it for the first time yesterday. She states that Propranolol was considered, but that it has an interaction with her migraine medication. She had been apprehensive of using the beta narda due to fear that it would lower her HR too much.When she used it yesterday, she notes that her physical symptoms of anxiety/panic were improved. She denies concerns with thoughts of harm herself or others, or any history of suicidal gestures. We di scussed the treatment recommendations for anxiety/panic, discussing a combination of appropriate medications as well as appropriate therapy. She is interested in day treatment options for increased support. Per ED SW Narrative: The patient is a 34 y.o. female who comes to the ED alone. Team Assessment or Conversation with provider Jaime Scott PA-C determined by a brief social work assessment to be appropriate. Patient is encountered by this mortgage or loan underwriter in patient's assigned room in G Pod. Patient is alert and oriented. Patient is dressed in street attire. Patient presents with somewhat anxious affect, but is regulated and coping during the visit. Patient appears Patient's speech is normal rate. Patient's thought process is logical with obsession on heart rate. Patient is a good historian. Patient is cooperative with this assessment. Patient states that they are here in the emergency department today due to struggling to get out of panic attack when having SOB. Patient checking her pulse and heart rate multiple times over and over during the encounter. Discussed brief coping strategies and CBT skills today in session. Coached Patient during the visit to utilize CBT strategies. Reports inability to stop the thought or compulsion. Patient today denied SI/HI/SIB. Patient reports no history of suicidal ideation / attempt. Patient reports no history of psychiatric hospitalization. Patient denies AH/VH. Patient denies use of drugs or etoh, nicotine or caffeine. Patient vapes. Patient reports mental health symptoms of anxious distress lasting in excess of 6 weeks. She has a relative watching her daughter right now and recently stopped working due to her symptoms. Patient identifies daughter as protective factors. Patient reports she has trouble coming out of her panic attack when has SOB. Throughout the visit she repeatedly checked her heart beat/ blood pressure and had obsessive thoughts about it. Has found Xanax has helped, but tonight only took half. Will plan to return to home nad work with outpatient providers to treat OCD, increase effective coping skills, and consult on medications. Chemical Dependency History, Past Psychiatric History, Family History and Past Medical History: SeeAdmission Note completed by Dr. Olmedo on 09/13/24. Lab Studies, EKG & other diagnostic testing No results found for this or any previous visit (from the past 24 hour(s)). Hospital Course The multidisciplinary treatment team met (RN, OT, social services manager, Physician) on a daily basis to discuss patient care and treatment planning. The psychiatric inpatient setting provided close nursing supervision and access to multiple treatment modalities and programming (group therapy, OT, one-to-one therapy.) Patient support systems such as family, heel caser, and other care providers were contacted as appropriate for collateral information and treatment planning. 1. Medication Trials and Changes: The patient was continued on [employer] medications. 2. Legal Status: Voluntary 3. Group Attendance: n/a (same day discharge) 4. Level of cooperation and Medication adherence: No behavioral issues reported. The patient was adherent with prescribed medications. 5. Change in psychiatric symptoms: Kacey Hines is a 34 y.o. female who has been admitted to station [facility] for anxiety/panic. The treatment team has initiated appropriate safety precautions. The patient is being admitted for evaluation, stabilization and treatment for the working diagnosis of ROSE MARY and panic disorder. The patient endorses chronic anxiety with a recent increase in intensity as well as panic symptoms associated with somatic preoccupation. She has recently been engaging in medication adjustment as well as establishing with a therapist. No concerns are noted with dangerousness to herself or others or failure of self care. Options for management were reviewed in which she is interested in increasing her therapy resources (IOP). The patient's presentation is not felt to require an inpatient level of care. She agrees with this and requests to discharge to home to continue management with outpatient resources. 6. Discharge planning and coordination of care: The patient is discharged to home. She will continue to utilize her home supply of medications and follow-up with her providers. She was given information for IOP. The patient is aware of crisis resources. At the time of discharge, there appeared to be no evidence that the patient posed an imminent threat to self or others and a reasonable discharge plan was in place, we determined that the patient hadachieved optimal medical benefit from hospitalization and was discharged with follow-up as detailedbelow. Consults None Mental Status Exam on Discharge BP 129/67 Pulse 93 Temp 97 ??F (36.1 ??C) (Tympanic) Resp 16 Ht 5' 6 (1.676 m) Wt 77.9 kg (171 lb 12.8 oz) LMP 08/15/2024 (Approximate) SpO2 99% BMI 27.73 kg/m?? Appearance: alert, casually groomed Behavior: cooperative, engaged Speech: normal in rate and loudness Language: intact Thought process: logical and goal-directed Thought content: without delusions, hallucinations or suicidal ideation Homicidal Ideation: No Associations: intact Mood: Panic Affect: Anxious, but euthymic Orientation: Oriented to person, place, time, and situation Attention and Concentration: intact Memory: intact Fund of Knowledge: intact Insight: fair Judgment: fair Discharge Plans Condition at discharge: stable. Discharge destination: home Labs or testing which should be done or considered in the outpatient setting: None Appointments and Follow Up: Discharge Orders (Non-med) When to Resume Normal Activities: Comments: You may resume normal activities at the time you are discharged No Pending Labs Discharge Medications Upon discharge, patient is on no scheduled antipsychotic medications. Discharge Medication List as of 09/13/2024 10:08 AM START taking these medications Details atenolol (TENORMIN) 25 MG tablet Take one-half tablet (12.5 mg) by mouth daily as needed (anxiety).Indications: anxiety, Disp-45 Tablet, R-3, DAILY PRN Starting 09/13/2024, Until 09/13/2025 at 2359, For 365 days, Oral, E-Prescribing CONTINUE these medications which have NOT CHANGED Details escitalopram oxalate (LEXAPRO) 20 MG tablet Take 1 Tablet (20 mg) by mouth daily., Disp-30 Tablet, R-3, DAILY Starting Sat08/13/2024, Until Sat08/13/2025, For 365 days, Oral, E-Prescribing hydrOXYzine HCl (ATARAX) 25 MG tablet Take 1 Tablet (25 mg) by mouth every 6 hours as needed., Disp-30 Tablet, R-1, Q6H PRN Starting Sat08/19/2024, Oral, E-Prescribing LORazepam (ATIVAN) 0.5 MG tablet Take 1 Tablet (0.5 mg) by mouth every 6 hours as needed for Anxiety., Disp-15 Tablet, R-0, Q6H PRN Starting Sat08/13/2024, Oral, E-Prescribing rizatriptan (MAXALT) 10 MG tablet 1 tab po at onset of migraine, 1 tab po 2 hrs later if needed. Max 9 pills per month., Disp-9 Tablet, R-11, E-Prescribing STOP taking these medications DULoxetine (CYMBALTA) 30 MG capsule Comments: Reason for Stopping: Future Appointments Provider Department Center 09/15/2024 1:15 PM Rosa Maria Phillips MD [facility] Discharge Summary and Discharge Coordination of Care is 85 minutes. This time was spent preparing to see the patient , performing a medically appropriate examination, counseling and educating the patient/family/caregiver, ordering medications, tests, or procedures, communicating with treatment team, documenting clinical information in the electronic health record, and coordinating patient care. Report completed and signed by: Reji Olmedo II, MD 09/13/2024, 11:43 AM NE7 [facility] documented in this encounter Discharge Instructions * Discharge Instr - Other Orders* Dorcas Rogers - 09/13/2024 10:08 AM [facility] Resources 1. [employer] [address] [facility], [address], [address] ([employer]) improves the lives of children and adults withmental illnesses and their families by providing free classes on mental illnesses and support groups for adults with mental illnesses, parents and family members. For more information: Toll free: 7-871-CWQP-[facility] Website: www.[employer].org 2. Online go to: www.[place]Help.info 3. [facility] (serving [place], [place] [facility]) [address] [place] [address] Crisis Line Numbers 1. [facility] [phone] 2. [facility] ([facility]) 415.745.3602 3. [facility] [phone] 4. National Suicide Prevention Lifeline [address]88 H CRYSTAL MOLDER documented in this encounter Medications at Time [...] as of this encounter Consult Notes * Beth Anderson, FIBER TECHNOLOGIST - 09/12/2024 6:04 PM [facility] Order(s): ED SOCIAL WORK CONSULT [facility] Emergency Department Social Work Crisis Assessment Current and Past Diagnoses: hx of panic attacks, anxiety, depression and OCD Narrative: The patient is a 34 y.o. female who comes to the ED alone. Team Assessment or Conversation with provider Jaime Scott PA-C determined by a brief social work assessment to be appropriate. Patient is encountered by this mortgage or loan underwriter in patient's assigned room in G Pod. Patient is alert and oriented. Patient is dressed in street attire. Patient presents with somewhat anxious affect, but is regulated and coping during the visit. Patient appears Patient's speech is normal rate. Patient's thought process is logical with obsession on heart rate. Patient is a good historian. Patient is cooperative with this assessment. Patient states that they are here in the emergency department today due to struggling to get out of panic attack when having SOB. Patient checking her pulse and heart rate multiple times over and over during the encounter. Discussed brief coping strategies and CBT skills today in session. Coached Patient during the visit to utilize CBT strategies. Reports inability to stop the thought or compulsion. Patient today denied SI/HI/SIB. Patient reports no history of suicidal ideation / attempt. Patient reports no history of psychiatric hospitalization. Patient denies AH/VH. Patient denies use of drugs or etoh, nicotine or caffeine. Patient vapes. Patient reports mental health symptoms of anxious distress lasting in excess of 6 weeks. She has a relative watching her daughter right now and recently stopped working due to her symptoms. Patient identifies daughter as protective factors. Patient reports she has trouble coming out of her panic attack when has SOB. Throughout the visit she repeatedly checked her heart beat/ blood pressure and had obsessive thoughts about it. Has found Xanax has helped, but tonight only took half. Will plan to return to home nad work with outpatient providers to treat OCD, increase effective coping skills, and consult on medications. Information from collateral Chart review Current Stressors and Relevant History: Health related anxiety- last 6 weeks. Reports OCD symptoms surfaced at this time. Does patient have legal guardian? (include names, phone numbers, and document contact with guardian) No Does the patient have access to the means or the method related to their plan while in the hospital? NA Does the patient have access to the means or the method related to their plan after discharge? NA Clinical Symptoms: Anxiety panic obsessive thoughts and compulsions Dangerousness (include any known information regarding historical or current homicidal, sexual, or physically aggressive behaviors): No Current Aggression towards others: No Does the patient have access to firearms? No Protective Factors: resilient, future thinking, responsibility as a mother, outpatient supports, support network Family History: NA Suicide Assessment/SIB NA Living Situation: Home with boyfriend Legal Issues (include comments regarding probation, incarcerations, etc): None Employment/Income: Left job 4 weeks ago after 13 years. Work said she had to get her stuff figuredout but then can come back. Mental Health Care: Primary care provider. Met once with therapist, will be coming out to house 1x a week for up to 6 weeks. Wants to engage in longer term therapy. Will consider [facility] and/ or a termite technician therapist. Has a referral for a psychiatrist pending Spoke about [facility] as an option as well. Chemical use/abuse: Denies current Substance Use Behavior in ED: Anxious Mental Status: Affect: Full-featured Appearance: Appropriate to weather/situation Eye Contact: Engaged Insight: Intact Intellectual Functioning: Within Normal Limits Mood: Anxious Orientation: Person: Yes , Situation: Yes, Place: Yes , and Time: Yes Speech: Regular rate and rhythm Thought Process: Coherent and Obsessive Clinical decision making/rationale: Pt with the past psych history significant for OCD, Anxiety whopresents to the ED with panic attack. Pt reports worsening symptoms of panic and SOB and Anxiety over the last 6 weeks. It seems possible that a brief admission will be of benefit to patient, or it will function to assess patient's MH symptoms and willingness to participate in available interventions, and hence guide future recommendations for therapy and medication management. Pt reports wantingto address, or work on, med management, coping skills, during an admission to inpatient psychiatry. Suicide Risk: No Acute Risk Plan: Patient will be admitted to [facility] inpatient voluntarily. Consulted with PHILL De Leon 09/12/2024, 6:11 PM [facility] MOLDER documented in this encounter OR Notes * H&P - Reji Olmedo II, MD - 09/13/2024 7:11 AM [facility] ADMISSION Kacey Hines Admission Date and Time: 09/12/2024 7:12 PM Date/Time of this exam: 09/13/2024 7:11 AM Chief Complaint Constant panic. History of Present Illness Kacey Hines is a 34 y.o. Female who has been admitted for anxiety/panic from the Emergency Department. The patient is being admitted on a Voluntary status. The patient carries a diagnosis of ROSE MARY and panic disorder. In interview, the patient reiterated the information reported in the ED. She described a chronic history of anxiety, but states that anxiety and panic symptoms have increased in the past 4-5 weeks. She states that around that time, she was diagnosed with cellulitis and feels that this triggered herhealth anxiety. She she describes increased panic symptoms, which she notes are largely related to racing heart and SOB, which she becomes quite distressed by. She describes herself as frequently checking her HR and BP. The level of anxiety is impairing her daily functioning. She is on leave fromher work due to anxiety. She has worked with [facility], who referred her to a therapist, but only has had one visit so far. Medication management has been through her PCP. She is most recently taking Lexapro (20mg for 4 weeks), as well as recently started on Trazodone (ED visit). She was given a prescription for Atenolol about a month ago, but used it for the first time yesterday. She states that Propranolol was considered, but that it has an interaction with her migraine medication. She had been apprehensive of using the beta narda due to fear that it would lower her HR too much.When she used it yesterday, she notes that her physical symptoms of anxiety/panic were improved. She denies concerns with thoughts of harm herself or others, or any history of suicidal gestures. We di scussed the treatment recommendations for anxiety/panic, discussing a combination of appropriate medications as well as appropriate therapy. She is interested in day treatment options for increased support. Per ED SW Narrative: The patient is a 34 y.o. female who comes to the ED alone. Team Assessment or Conversation with provider Jaime Scott PA-C determined by a brief social work assessment to be appropriate. Patient is encountered by this mortgage or loan underwriter in patient's assigned room in G Pod. Patient is alert and oriented. Patient is dressed in street attire. Patient presents with somewhat anxious affect, but is regulated and coping during the visit. Patient appears Patient's speech is normal rate. Patient's thought process is logical with obsession on heart rate. Patient is a good historian. Patient is cooperative with this assessment. Patient states that they are here in the emergency department today due to struggling to get out of panic attack when having SOB. Patient checking her pulse and heart rate multiple times over and over during the encounter. Discussed brief coping strategies and CBT skills today in session. Coached Patient during the visit to utilize CBT strategies. Reports inability to stop the thought or compulsion. Patient today denied SI/HI/SIB. Patient reports no history of suicidal ideation / attempt. Patient reports no history of psychiatric hospitalization. Patient denies AH/VH. Patient denies use of drugs or etoh, nicotine or caffeine. Patient vapes. Patient reports mental health symptoms of anxious distress lasting in excess of 6 weeks. She has a relative watching her daughter right now and recently stopped working due to her symptoms. Patient identifies daughter as protective factors. Patient reports she has trouble coming out of her panic attack when has SOB. Throughout the visit she repeatedly checked her heart beat/ blood pressure and had obsessive thoughts about it. Has found Xanax has helped, but tonight only took half. Will plan to return to home nad work with outpatient providers to treat OCD, increase effective coping skills, and consult on medications. Psychiatric Review of Systems See HPI. Denies a history of ja/hypomania. Past Psychiatric History Past Diagnosis: Anxiety, panic Previous admissions: None Current Psychiatrist: None. Medications through primary care Current Therapist: New therapist (1 visit), referred through [facility] Previous Psychiatric Meds/ECT: Propranolol, Ativan, Cymbalta (prescribed, but not started due to concerns with possible side effects), Celexa, Amitriptyline, Lexapro (prior effective trial) Suicidal Gestures/Attempts: Denied Chemical History The patient denies a history of concerns with alcohol or illicit substances. No history of CD treatment or legal consequences of substance use. Family History Psychiatric: Mother with depression/anxiety. Father with bipolar. Chemical Dependency: Denied Suicide: Denied Hereditary Major Medical: Family History Problem Relation Name Age of [...] History Thyroid Disorder Negative Family History Social History Family of Origin: Born and raised in [place]. Education: 10th grade education. No GED. Significant Other/Marital Status/Children: Has a boyfriend. She has a 5 1/2yo daughter. 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 Past Medical History Past Medical History: Diagnosis Date Bipolar affect, depressed ([facility]) Bipolar affective disorder ([facility]) 07/28/2009 Cellulitis of right lower extremity 07/08/2024 Treated at outside urgent care - treated with oral Keflex QID x 10 days Depression ([facility]) Posttraumatic stress disorder ([facility]) 07/28/2009 Right foot pain 07/23/2024 Patient thought could be 2/2 recent cellulitis. Plain films ordered History of Seizures: No History of Fractures/Head Trauma: No Primary Care Provider: Margot Huang PA-C Past Surgical History: Procedure Laterality Date SECTION 2019 CHOLECYSTECTOMY DILATION AND CURETTAGE 2018 WISDOM TEETH EXTRACTION Medical Review of Systems: A 10-point review of systems, including constitutional, HEENT, cardiovascular, respiratory, gastrointestinal, genitourinary, musculoskeletal, skin, endocrine and neurologic is negative, excluding thecurrent problem. Medications Prior to Admission Medications Prior to Admission Medication Sig Note Dispense Refill DULoxetine (CYMBALTA) 30 MG capsule Take 1 Capsule (30 mg) by mouth daily. 30 Capsule 3 escitalopram oxalate (LEXAPRO) 20 MG tablet Take 1 Tablet (20 mg) by mouth daily. 30 Tablet 3 hydrOXYzine HCl (ATARAX) 25 MG tablet Take 1 Tablet (25 mg) by mouth every 6 hours as needed. 30 Tablet 1 LORazepam (ATIVAN) 0.5 MG tablet Take 1 Tablet (0.5 mg) by mouth every 6 hours as needed for Anxiety. 09/07/2024: Last dose last night before bed 15 Tablet 0 rizatriptan (MAXALT) 10 MG tablet 1 tab po at onset of migraine, 1 tab po 2 hrs later if needed. Max 9 pills per month. 9 Tablet 11 Current Inpatient Medications Current Facility-Administered Medications Medication Dose Route Frequency acetaminophen (TYLENOL) tablet 650 mg 650 mg Oral Q6H PRN senna (SENOKOT) tablet 2 Tablet 2 Tablet Oral BID PRN And polyethylene glycol (MIRALAX) oral powder 17 g 17 g Oral DAILY PRN And bisacodyl (DULCOLAX) rectal suppository 10 mg 10 mg Rectal DAILY PRN calcium carbonate (TUMS) chewable tablet 1,000 mg 1,000 mg Oral Q4H PRN escitalopram oxalate (LEXAPRO) tablet 20 mg 20 mg Oral Daily hydrOXYzine pamoate (VISTARIL) capsule 25 mg 25 mg Oral Q6H PRN LORazepam (ATIVAN) tablet 0.5 mg 0.5 mg Oral Q6H PRN nicotine (COMMIT) lozenge 4 mg 4 mg Oral Q1H PRN Or nicotine (NICORETTE) gum 4 mg 4 mg Oral Q1H PRN nicotine (NICODERM CQ) 21 MG/24HR 1 Patch 1 Patch Transdermal DAILY PRN OLANZapine (ZyPREXA) tablet 5 mg 5 mg Oral ONCE PRN Or OLANZapine (ZyPREXA) 10 mg in sterile water 2 mL injection 10 mg Intramuscular ONCE PRN Allergy Allergies Allergen Reactions Sulphadimidine [Sulfa Antibiotics] Hives Objective BP 110/74 (BP Cuff Size: Regular) Pulse (!) 59 Temp 98.7 ??F (37.1 ??C) (Temporal Artery) Resp 16 Ht 5' 6 (1.676 m) Wt 77.9 kg (171 lb 12.8 oz) LMP 08/15/2024 (Approximate) SpO2 99% BMI 27.73 kg/m?? MENTAL STATUS EXAM: Appearance: alert, casually groomed Behavior: cooperative, engaged Speech: normal in rate and loudness Language: intact Thought process: logical and goal-directed Thought content: without delusions, hallucinations or suicidal ideation Homicidal Ideation: No Associations: intact Mood: Panic Affect: Anxious, but euthymic Orientation: Oriented to person, place, time, and situation Attention and Concentration: intact Memory: intact Fund of Knowledge: intact Insight: fair Judgment: fair Physical Exam: Motor: normal Gait and Station: seated Muscle strength and tone: No apparent abnormalities. Admission Physical Exam completed by Jaime Scott PA-C on 09/12/24. Labs No results found for this or any previous visit (from the past 24 hour(s)). Chin Hines is a 34 y.o. female who has been admitted to station [facility] for anxiety/panic. The treatment team has initiated appropriate safety precautions. The patient is being admitted for evaluation, stabilization and treatment for the working diagnosis of ROSE MARY and panic disorder. The patient endorses chronic anxiety with a recent increase in intensity as well as panic symptoms associated with somatic preoccupation. She has recently been engaging in medication adjustment as well as establishing with a therapist. No concerns are noted with dangerousness to herself or others or failure of self care. Options for management were reviewed in which she is interested in increasing her therapy resources (IOP). The patient's presentation is not felt to require an inpatient level of care. She agrees with this and requests to discharge to home to continue management with outpatient resources. Diagnoses & Plan Principal Psychiatric Diagnoses: Generalized anxiety disorder Panic disorder Substance Use Disorders: None Medical Concerns to be addressed: None Medication Ordered/Consults/Labs/Tests Ordered: 09/13/24: Continue [employer] TANK COOPER medications. Given reported benefit, encouraged use of Atenolol for physical symptoms of anxiety. Educated on the safety of the medication. Discussed the basis of benefits from appropriate CBT therapy and skills for treating acute and chronic anxiety. Patient provided with information on IOP's available in [facility]. Milieu Management: Admit to: [facility] Legal: Voluntary Acuity level Red Suicide Risk: No acute risk Encourage the patient to participate in unit activities. Certification & Risk Assessment The patient needs inpatient psychiatric treatment for diagnostic assessment and treatment of the following symptoms: anxiety/panic Estimated length of stay is 1 day. Anticipated disposition: home Reji Olmedo II, MD Total time spent: 85 minutes, this time was spent preparing to see the patient , performing a medically appropriate examination, counseling and educating the patient/family/caregiver, communicating with treatment team, documenting clinical information in the electronic health record, and coordinating patient care. H CRYSTAL MOLDER documented in this encounter ED Notes * Jaime Scott PA-C - 09/12/2024 4:43 PM CST [facility] Emergency Medicine Visit Note Chief Complaint: CRISIS EVALUATION--ED HPI 34 yo female with a hx of panic attacks, anxiety, depression and OCD presenting to the ED complaining of ongoing anxiety for the past 6 weeks. This is her 5th ED visit this month and reports several clinic visits. Kacey reports,I have had 5 EKG's, an ECHO, CXR and lots of labs done. States thatmemo has been having daily panic attacks. Started Lexapro and Hydroxyzine about 5 weeks ago. Some imp rovement as she has been able to get out of bed. However, not able to care for her child who is staying with her aunt. Also walked away from her job 4 weeks ago. Denies any SI or HI. Given RX for Xanax 3 days ago. Has used 2 of them as they help, but states that she only had a limited amount so shesaves them for when the anxiety is really bad. Triage Vitals [09/12/24 1559] Temp 98.6 ??F (37 ??C) Temp src Oral Pulse 72 Resp 16 BP 128/64 SpO2 98 % Physical Exam General: sitting on the exam table in NAD. Alert and interactive. Head: atraumatic Eyes: corneas clear and conjunctivae clear. No scleral icterus. Neck: Spontaneous ROM. Chest/Pulmonary: No tachypnea CV: radial pulse with a regular rate and rhythm. Musculoskel/Extremities: Moving all extremities. Skin: no diaphoresis Neuro: speech clear, gait stable Psych: mood reported as anxious. Affect neutral. Limited insight and judgement. Making normal eye contact. Speech is of normal rate and tone. MDM: vitals are normal. Kacey is not altered and does not appear under the influence of drugs or alcohol at this time. They have no physical complaints and are agreeable to speaking with SW as well. SW met with the patient and recommended inpatient admission given failed outpatient attempts. I spoke to the admitting provider with inpatient psychiatry who accepted the patient. Jaime Scott PA-C Clinical Impressions as of 09/12/241843 Anxiety (HRC) H CRYSTAL MOLDER documented in this encounter Plan of Treatment Upcoming Encounters Date Type Department Care Team (Late st Contact Info) Description 09/16/2024 9:00 AM WATCH CRYSTAL MOLDER Telemedicine [address] [address] Rachael Rousseau MD [address] [place] [address] 09/16/2024 10:00 AM WATCH CRYSTAL MOLDER Telemedicine [facility] Partial Hospitalization Program [address] [place] [address] Rachael Rousseau MD [address] [place] [address] 09/29/2024 1:00 PM W[facility] CR[facility]STAL MOLDER [facility] [address] [place], [place] [id number] Rosa Maria Phillips MD [address] [place], [place] [id number] documented as of this encounter Visit Diagnoses Diagnosis ROSE MARY (generalized anxiety disorder) (HRC)- Primary Generalized anxiety disorder Anxiety (HRC) Anxiety state, unspecified * Plan of Care - Jim Cunningham RPh - 09/13/2024 10:24 AM CST [facility] Home Medication Review and Destruction ATTN Nursing: The patients home medications have been reviewed by the pharmacist and the following home medications have been destroyed per protocol: 1.trazodone-dc 2. Atenolol-sig change 3. Alprazolam-dc Any questions or concerns please call Outpatient Pharmacy at [phone]. This destruction was authorized by Dr. Rachael Rousseau. H CRYSTAL MOLDER * Plan of Care - Brice Otto RN - 09/13/2024 9:33 AM CST [facility] Discharge Note - Nursing Admission Date/Time: 09/12/2024 4:18 PM Attending MD: Reji Olmedo II, MD Patient discharged: to Home. Discharge Date: 09/13/2024 Discharge Time: 1043 Patient accompanied by: self . Transported by: Walked Valuables were taken home by patient: Yes Discharge instructions given and explained to patient: Yes Discharge Patient Education Plan completed, taught, and provided to patient/caregiver at discharge:Yes Discussed medication risks with patient Patient understands medications usage and side effects Patient understands diagnosis Action Plan for management of symptoms/side effects/complications requiring medical attention established and shared with patient/caregiver Was patient discharged on Warfarin? {(Do not delete line; Warfarin documentation is required) No Patients general condition on discharge: Pt appeared alert and oriented to time place ans person. Understood and signed discharge instruction and took belonging with herself. Pt ws seen by psychiatrist and SW prior to discharge. Pt denies SI/HI/AVH at discharge. Medication compliant. All medical devices (telemetry/IV/etc) unless otherwise ordered, have been removed and stored: N/A --- End of Report --- H CRYSTAL MOLDER * Plan of Care - Edwige Henderson, [facility] - 09/13/2024 9:23 AM CST [facility] Social Work Discharge Note Admission Date/Time: 09/12/2024 4:18 PM Attending Practitioner: Reji Olmedo II, MD [facility]: [place] Insurance: [facility] Secondary Insurance: N/A Disposition: Home Address: [address] [place] [id number] Expected Discharge Date/Time: 09/13/2024 11:00 Legal Status at Discharge: Voluntary Transportation Arrangements: Anticipated Transportation Mode: Private Vehicle Anticipated Transportation Provider: Self Discharge Transportation Needs: None Discharge Collateral Contact: ROSANNE Services: N/A Discharge Safety Risk Assessed: Yes;Patient denied suicidal or homicidal ideations at discharge. SW reviewed safety plan and discussed crisis resources. Patient is at risk for rehospitalization if discharge plan is not followed. Discharge Summary: Provider determined Pt safe for discharge. Pt denies SI/HI/SIB and contracts for safety. Pt will continue taking meds as prescribed and is encouraged to f/u with IOP/PHP provider. Pt provided with information on [facility] and [facility] which are close to her home in [place]. Pt will drive herself home - her car is in the lot. She has a standing therapy apt scheduled - next due to see therapist 09/21. PHILL Miles 09/13/2024, 10:27 AM H CRYSTAL MOLDER * Initial Assessments - Edwige Henderson LICSW - 09/13/2024 7:24 AM WATCH CRYSTAL MOLDER [facility] Social Work Initial Assessment Admission Date/Time: 09/12/2024 4:18 PM Age: 34 y.o. Attending Practitioner: Reji Olmedo II, MD County: [place] Admitting Diagnosis: Encounter Diagnoses Name Primary? Anxiety (HRC) Yes Reason for admit: Pt is admitted for increased anxiety and intrusive/compulsive thoughts. Pt has a prescription for Xanax that she only used half a dose with no good result. Pt reports symptoms have been increasing over the past 6 weeks. Pt is voluntary. See ED crisis social work note for more information. 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 Pt has had several ED visits over the past few weeksrelated to anxiety. Pt denies current ROSANNE use. See H&P for full medical history. Data Treatment team meets with Pt to discuss admission. She describes unbearable physical manifestationsof her anxiety - primarily racing heart and shortness of breath. She has been struggling for about 4 weeks - it was impacting her so much her boss asked her to take some time off to work on it. Pt lives at home with her daughter and boyfriend. Pt has never been hospitalized and has been managing MHsymptoms with meds prescribed by PCP. Pt's anxiety is rooted specifically in medical concerns - this current episode seems to be started from recent cellulitis episode a few weeks ago. Pt does not feel they need to be inpatient - no SI/HI/SIB and has never felt SI. Pt and provider review medications. Pt would benefit from IOP/PHP options. After discussing primary course of treatment will be therapy and skills building, Pt agreeable to information on IOP/PHP. See DC note for more information about discharge plan. GAIN Substance Disorder Screening (SDScr) GAIN-SS (When was the last time the patient - per patient report) Able to assess?: Yes Used alcohol/drugs weekly: 0 (never) Spent a lot of time getting/using/feeling the effects of alcohol/drugs: 0 (never) Kept using alcohol/drugs despite causing social problems, leading to fights, or getting into trouble w/ others: 0 (never) Alcohol/drug use caused them to give up/reduce/have problems at important activities at work/school/home/social events: 0 (never) Had withdrawal problems from alcohol/drugs like shaking hands/vomiting/trouble sitting still/sleeping or used alcohol/drugs to stop sickness/withdrawal problems: 0 (never) Score (# of symptoms endorsed in the past year - total number of 3s and 2s): 0 (Low - no ROSANNE assessment indicated) MICD Integrated Assessment MICD Integrated Assessment Indicated?: No, GAIN-SDScr does not indicate further assessment Stages of Change Stage of Mental Health Treatment: Stage 1: Pre-Contemplation/Pre-Engagement (Engagement, Irregular or no contact with community provider, does not identify as having TN, No readiness to engage in treatment) TN Treatment Recommendations for Inpatient/Outpatient: Invite to educational group (stage 1), Provide diagnostic education (stage 1, 2), Refer to community provider (stage 1) Stage of Substance Use Treatment: N/A CD Treatment Recommendations for Inpatient/Outpatient: N/A Clinical Assessment Strengths: Agreeable to hospitalizations, Communication skills, Cooperative, Family/social support,Willing to take medications, Has insurance Barriers/Vulnerabilities: Mental health issues, Multiple psychosocial issues Risk Assessment: Pt at minimal risk of harm to self or others on the inpatient unit with standard MH safety protocols in [facility]. Current Aggression towards others: No Clinical Summary: Observation, med management Reasons for readmission in last 30 days Reasons for Readmission (30 day):: (N/A) Initial Social Work Plan Anticipated Disposition: Home H CRYSTAL MOLDER * Plan of Care - Farrah Louis RN - 09/13/2024 6:57 AM CST Problem: Sleep Disturbance Goal: Adequate Sleep/Rest Outcome: Progressing Plan of Care Note Assessment: Sleep Plan: Patient will sleep > 5 hours Subjective: N/A Objective: Patient appeared to have slept more than 5 hours during the shift. No behavioral or safety concerns noted. Safety checks ongoing. --- End of Report --- H CRYSTAL MOLDER * Plan of Care - Nicholas Julien RN - 09/12/2024 10:51 PM CST Pt is a 34 year old female admitted from the ED on a voluntary status for evaluation at 1911. Pt reports extreme anxiety, panic attacks and OCD. Wants a review of her medications and to learn coping skills. Alert x 4, cooperative with admission. Signs ANDREW and admission paperwork. Unit rules and plan of care reviewed, pt verbalizes understanding. Pt immediately socializes with peers on the unit, affect is bright, mood is calm. Denies SI/HI/AVH. At bedtime pt requests and receives prn Ativan for sleep. Behavior is controlled. BP 110/74 (BP Cuff Size: Regular) Pulse (!) 59 Temp 98.7 ??F (37.1 ??C) (Temporal Artery) Resp 16 Ht 5' 6 (1.676 m) Wt 77.9 kg (171 lb 12.8 oz) LMP 08/15/2024 (Approximate) SpO2 99% BMI 27.73 kg/m?? H CRYSTAL MOLDER * Initial Assessments - Kristal Vargas, FLORAL DESIGNER SALESPERSON, PRINTING ROLLER HANDLER - 09/12/2024 6:48 PM WATCH CRYSTAL MOLDER [facility] DEPARTMENT OF PSYCHIATRY BLOCK GREASER INTAKE Kacey Hines Admission Date and Time: 09/12/2024 7:12 PM Date/Time of this exam: 09/12/2024 6:48 PM Chief Complaint Evaluation for acute psychiatric hospitalization Impression Kacey Hines is a 34 y.o. female who has been admitted to inpatient Mental Health. The patient is medically clear for psychiatric admission and appropriate safety precautions have been initiated. Plan Acute Psychiatric/Medical Concerns to be addressed: Increased anxiety Medication Ordered/Consults/Labs/tests Ordered: Reviewed and reconciled prior to admission medications, discussed medication management options with the patient and ordered comfort medication. See attending team's admission note for further history, diagnosis and treatment planning. Milieu Management: Admit to: [facility] Legal: Voluntary History of Present Illness Kacey Hines is a 34 y.o. female who has been admitted to [facility] inpatient Mental Health. The patient is being admitted on a Voluntary status. The patient carries a diagnosis of hx of panic attacks, anxiety, depression and OCD. Please see Emergency Room Social Work Note for information regarding admission decision. Brief subjective: Patient was seen in the gamma pod. Reported increased anxiety. Stated that her provider prescribed Cymbalta she reviewed Cymbalta but did not like what she read about the medication. She did not take it. She has continues to have increased anxiety. She is not suicidal at this point. She contracted for safety. No other issue of concern noted. Will continue to monitor. Social History Current Living arrangement: Apartment with boyfriend Urine Drug Screen: None ordered Last Drug or Alcohol Use: Denied current use Past Medical History Past Medical History: Diagnosis Date Bipolar affect, depressed ([facility]) Bipolar affective disorder ([facility]) 07/28/2009 Cellulitis of right lower extremity 07/08/2024 Treated at outside urgent care - treated with oral Keflex QID x 10 days Depression ([facility]) Posttraumatic stress disorder ([facility]) 07/28/2009 Right foot pain 07/23/2024 Patient thought could be 2/2 recent cellulitis. Plain films ordered Past Surgical History: Procedure Laterality Date SECTION 2019 CHOLECYSTECTOMY DILATION AND CURETTAGE 2018 WISDOM TEETH EXTRACTION Medical Review of Systems: 10 point review of systems, including constitutional, HEENT, cardiovascular, respiratory, gastrointestinal, genitourinary, musculoskeletal, skin, endocrine, and neurologic are entirely negative except anxiety. Medications Prior to Admission (Not in a hospital admission) Medications Ordered on current admission Current Facility-Administered Medications Medication Dose Route Frequency [START ON 09/13/2024] escitalopram (LEXAPRO) tablet 20 mg 20 mg Oral Daily hydrOXYzine HCl (ATARAX) 10 MG tablet 25 mg 25 mg Oral Q6H PRN LORazepam (ATIVAN) tablet 0.5 mg 0.5 mg Oral Q6H PRN Allergy Allergies Allergen Reactions Sulphadimidine [Sulfa Antibiotics] Hives Objective BP 128/64 Pulse 72 Temp 98.6 ??F (37 ??C) (Oral) Resp 16 LMP 08/15/2024 (Approximate) SpO2 98% Physical Exam: Appearance: alert, casually groomed Behavior: cooperative, engaged, friendly Orientation: Oriented to person, place, time, and situation Motor: normal Gait and Station: normal Muscle strength and tone: No apparent abnormalities. Admission Physical Exam completed by Jaime Scott PA-C on 09/12/2024. Labs No results found for this or any previous visit (from the past 24 hour(s)). Additional EKG/Imaging N/A Report Completed by : Kristal Vargas APRN, CNP H CRYSTAL MOLDER * Triage Assessment Note - Nay Gonzalez RN - 09/12/2024 3:59 PM WATCH CRYSTAL MOLDER Chief complaint: crisis evaluation Symptoms/background/relevant history (narrative): Patient states that she wants to talk to someone about her mental health, having panic attacks. Patient is on medication for her mental health. Taking medications as prescribed. Denies any drugs or alcohol today. What is most important to you about your ER visit today? Mental health help Initial falls risk factors: Not applicable H CRYSTAL MOLDER documented in this encounter Administered Medications Inactive Administered Medications - up to 3 most recent administrations Medication Order MAR Action Action Date Dose Rate Site acetaminophen (TYLENOL) tablet 650 mg 650 mg, Oral, Q6H PRN, Pain/Fever, Initially give acetaminophen for patient with mild pain., Starting on 09/12/24 at 1912, Until 09/13/24 at 1244, Initially give acetaminophen for patient with mild pain. Acetaminophen may be given WITH other pain medications as adjunct pain relief. Do not give two acetaminophen containing medications within 4 hours of each other. bisacodyl (DULCOLAX) rectal suppository 10 mg 10 mg, Rectal, DAILY PRN, Constipation, No stool in the last 3 days, Starting on 09/12/24 at 1912, Until 09/13/24 at 1244, Cumulative bowel medication orders. Administer based on medications available on DEC. If no stool in last day start Senna BID PRN no stool, if no stool in last 2 days add Miralax DAILY PRN no stool, if no stool in last 3 days add bisacodyl suppository DAILY PRN until patient stools. When patient stools, stop giving PRN meds and continue monitoring for bowel activity. When no stools X 1 day, begin regimen again until patient stools. Do not give if Absolute Neutrophil Count (ANC) is 1 k/cmm or less OR platelet count is 50 k/cmm or less. calcium carbonate (TUMS) chewable tablet 1,000 mg 1,000 mg, Oral, Q4H PRN, Heartburn, Upset Stomach, Starting on 09/12/24 at 1912, Until 09/13/24 at 1244, For indigestion/upset stomach escitalopram oxalate (LEXAPRO) tablet 20 mg 20 mg, Oral, DAILY, First dose on 09/13/24 at 0800, Until Discontinued Given 09/13/2024 8:18 AM WATCH CRYSTAL MOLDER 20 mg hydrOXYzine pamoate (VISTARIL) capsule 25 mg 25 mg, Oral, Q6H PRN, Anxiety, Other, Sleep, Starting on 09/12/24 at 1848, Until 09/13/24 at 1244 Given 09/13/2024 5:05 AM WATCH CRYSTAL MOLDER 25 mg LORazepam (ATIVAN) tablet 0.5 mg 0.5 mg, Oral, Q6H PRN, Anxiety, Starting on 09/12/24 at 1848, Until 09/13/24 at 1244 Given 09/12/2024 9:02 PM WATCH CRYSTAL MOLDER 0.5 mg nicotine (COMMIT) lozenge 4 mg 4 mg, Oral, Q1H PRN, Smoking Cessation, Starting on 09/12/24 at 1853, Until 09/13/24 at 1244, Slowly dissolve in mouth. Give gum as first line. Use lozenges if gum is not effective or if patient refuses gum. Maximum 5 lozenges/6 hours OR 20 lozenges/day., Indications: Nicotine Dependence nicotine (NICODERM CQ) 21 MG/24HR 1 Patch 1 Patch, Transdermal, DAILY PRN, Nicotine Replacement, Starting on 09/13/24 at 0000, Until 09/13/24 at 1244, Indications: Nicotine Dependence nicotine (NICORETTE) gum 4 mg 4 mg, Oral, Q1H PRN, Smoking Cessation, Starting on 09/12/24 at 1853, Until 09/13/24 at 1244, Slow paced chewing and intermittent packing in cheek. Maximum 24 pieces/day. Give gum as first line. Use lozenges if gum is not effective or if patient refuses gum., Indications: Nicotine Dependence OLANZapine (ZyPREXA) 10 mg in sterile water 2 mL injection 10 mg, Intramuscular, ONCE PRN, Agitation, For MIAHTAPS Score 5 or greater, Starting on 09/12/24 at 1912, For 1 dose, Give 1x for MIAHTAPS score 5 or greater, notify Practitioner when given, communicate patient's response. DO NOT GIVE WITHIN 60 MINUTES OF PARENTERAL BENZODIAZEPINES. Add 2.1 mL of sterile water for injection to 10 mg vial of olanzapine for a final concentration of 5 mg/mL OLANZapine (ZyPREXA) tablet 5 mg 5 mg, Oral, ONCE PRN, Other, For MIAHTAPS Score 3-4, Starting on 09/12/24 at 1912, Until 09/13/24 at 1244, For 1 dose, Give 1x for MIAHTAPS score 3-4. Notify Practitioner in 60 minutes of MIAHTAPS medication administration with patient response. polyethylene glycol (MIRALAX) oral powder 17 g 17 g, Oral, DAILY PRN, Constipation, No stool in the last 2 days, Starting on 09/12/24 at 1912, Until 09/13/24 at 1244, Cumulative bowel medication orders. Administer based on medications available on DEC. If no stool in last day start Senna BID PRN no stool, if no stool in last 2 days add Miralax DAILY PRN no stool, if no stool in last 3 days add bisacodyl suppository DAILY PRN until patient stools. When patient stools, stop giving PRN meds and continue monitoring for bowel activity. When no stools X 1 day, begin regimen again until patient stools. senna (SENOKOT) tablet 2 Tablet 2 Tablet, Oral, BID PRN, Constipation, No stool in the last day, Starting on 09/12/24 at 1912, Until 09/13/24 at 1244, Cumulative bowel medication orders. Administer based on medications available on DEC. If no stool in last day start Senna BID PRN no stool, if no stool in last 2 days add Miralax DAILY PRN no stool, if no stool in last 3 days add bisacodyl suppository DAILY PRN until patient stools. When patient stools, stop giving PRN meds and continue monitoring for bowel activity. When no stools X 1 day, begin regimen again until patient stools. documented in this encounter Active and Recently Administered Medications Times are shown in [facility]. Scheduled Medication Order 09/11/2024 09/12/2024 09/13/2024 escitalopram oxalate (LEXAPRO) tablet 20 mg 20 mg, Oral, DAILY, First dose on 09/13/24 at 0800, Until Discontinued 0818 (Given - Provid er: Brice Otto RN) PRN Medication Order 09/11/2024 09/12/2024 09/13/2024 acetaminophen (TYLENOL) tablet 650 mg 650 mg, Oral, Q6H PRN, Pain/Fever, Initially give acetaminophen for patient with mild pain., Starting on 09/12/24 at 1912, Until 09/13/24 at 1244, Initially give acetaminophen for patient with mild pain. Acetaminophen may be given WITH other pain medications as adjunct pain relief. Do not give two acetaminophen containing medications within 4 hours of each other. bisacodyl (DULCOLAX) rectal suppository 10 mg(Linked Group 1) 10 mg, Rectal, DAILY PRN, Constipation, No stool in the last 3 days, Starting on 09/12/24 at 1912, Until 09/13/24 at 1244, Cumulative bowel medication orders. Administer based on medications available on DEC. If no stool in last day start Senna BID PRN no stool, if no stool in last 2 days add Miralax DAILY PRN no stool, if no stool in last 3 days add bisacodyl suppository DAILY PRN until patient stools. When patient stools, stop giving PRN meds and continue monitoring for bowel activity. When no stools X 1 day, begin regimen again until patient stools. Do not give if Absolute Neutrophil Count (ANC) is 1 k/cmm or less OR platelet count is 50 k/cmm or less. calcium carbonate (TUMS) chewable tablet 1,000 mg 1,000 mg, Oral, Q4H PRN, Heartburn, Upset Stomach, Starting on 09/12/24 at 1912, Until 09/13/24 at 1244, For indigestion/upset stomach hydrOXYzine pamoate (VISTARIL) capsule 25 mg 25 mg, Oral, Q6H PRN, Anxiety, Other, Sleep, Starting on 09/12/24 at 1848, Until 09/13/24 at 1244 0505 (Given - Provid er: Farrah Louis RN) LORazepam (ATIVAN) tablet 0.5 mg 0.5 mg, Oral, Q6H PRN, Anxiety, Starting on 09/12/24 at 1848, Until 09/13/24 at 1244 2102 (Given - Provider: Nicholas Julien RN) nicotine (COMMIT) lozenge 4 mg(Linked Group 2) 4 mg, Oral, Q1H PRN, Smoking Cessation, Starting on 09/12/24 at 1853, Until 09/13/24 at 1244, Slowly dissolve in mouth. Give gum as first line. Use lozenges if gum is not effective or if patient refuses gum. Maximum 5 lozenges/6 hours OR 20 lozenges/day., Indications: Nicotine Dependence nicotine (NICODERM CQ) 21 MG/24HR 1 Patch 1 Patch, Transdermal, DAILY PRN, Nicotine Replacement, Starting on 09/13/24 at 0000, Until 09/13/24 at 1244, Indications: Nicotine Dependence nicotine (NICORETTE) gum 4 mg(Linked Group 2) 4 mg, Oral, Q1H PRN, Smoking Cessation, Starting on 09/12/24 at 1853, Until 09/13/24 at 1244, Slow paced chewing and intermittent packing in cheek. Maximum 24 pieces/day. Give gum as first line. Use lozenges if gum is not effective or if patient refuses gum., Indications: Nicotine Dependence OLANZapine (ZyPREXA) 10 mg in sterile water 2 mL injection(Linked Group 3) 10 mg, Intramuscular, ONCE PRN, Agitation, For MIAHTAPS Score 5 or greater, Starting on 09/12/24 at 1912, For 1 dose, Give 1x for MIAHTAPS score 5 or greater, notify Practitioner when given, communicate patient's response. DO NOT GIVE WITHIN 60 MINUTES OF PARENTERAL BENZODIAZEPINES. Add 2.1 mL of sterile water for injection to 10 mg vial of olanzapine for a final concentration of 5 mg/mL OLANZapine (ZyPREXA) tablet 5 mg(Linked Group 3) 5 mg, Oral, ONCE PRN, Other, For MIAHTAPS Score 3-4, Starting on 09/12/24 at 1912, Until 09/13/24 at 1244, For 1 dose, Give 1x for MIAHTAPS score 3-4. Notify Practitioner in 60 minutes of MIAHTAPS medication administration with patient response. polyethylene glycol (MIRALAX) oral powder 17 g(Linked Group 1) 17 g, Oral, DAILY PRN, Constipation, No stool in the last 2 days, Starting on 09/12/24 at 1912, Until 09/13/24 at 1244, Cumulative bowel medication orders. Administer based on medications available on DEC. If no stool in last day start Senna BID PRN no stool, if no stool in last 2 days add Miralax DAILY PRN no stool, if no stool in last 3 days add bisacodyl suppository DAILY PRN until patient stools. When patient stools, stop giving PRN meds and continue monitoring for bowel activity. When no stools X 1 day, begin regimen again until patient stools. senna (SENOKOT) tablet 2 Tablet(Linked Group 1) 2 Tablet, Oral, BID PRN, Constipation, No stool in the last day, Starting on 09/12/24 at 1912, Until 09/13/24 at 1244, Cumulative bowel medication orders. Administer based on medications available on DEC. If no stool in last day start Senna BID PRN no stool, if no stool in last 2 days add Miralax DAILY PRN no stool, if no stool in last 3 days add bisacodyl suppository DAILY PRN until patient stools. When patient stools, stop giving PRN meds and continue monitoring for bowel activity. When no stools X 1 day, begin regimen again until patient stools. Linked Groups Order Group 1: senna (SENOKOT) tablet 2 TabletJump to med 2 Tablet, Oral, BID PRN, Constipation, No stool in the last day, Starting on 09/12/24 at 1912, Until 09/13/24 at 1244, Cumulative bowel medication orders. Administer based on medications available on DEC. If no stool in last day start Senna BID PRN no stool, if no stool in last 2 days add Miralax DAILY PRN no stool, if no stool in last 3 days add bisacodyl suppository DAILY PRN until patient stools. When patient stools, stop giving PRN meds and continue monitoring for bowel activity. When no stools X 1 day, begin regimen again until patient stools. And polyethylene glycol (MIRALAX) oral powder 17 gJump to med 17 g, Oral, DAILY PRN, Constipation, No stool in the last 2 days, Starting on 09/12/24 at 1912, Until 09/13/24 at 1244, Cumulative bowel medication orders. Administer based on medications available on DEC. If no stool in last day start Senna BID PRN no stool, if no stool in last 2 days add Miralax DAILY PRN no stool, if no stool in last 3 days add bisacodyl suppository DAILY PRN until patient stools. When patient stools, stop giving PRN meds and continue monitoring for bowel activity. When no stools X 1 day, begin regimen again until patient stools. And bisacodyl (DULCOLAX) rectal suppository 10 mgJump to med 10 mg, Rectal, DAILY PRN, Constipation, No stool in the last 3 days, Starting on 09/12/24 at 1912, Until 09/13/24 at 1244, Cumulative bowel medication orders. Administer based on medications available on DEC. If no stool in last day start Senna BID PRN no stool, if no stool in last 2 days add Miralax DAILY PRN no stool, if no stool in last 3 days add bisacodyl suppository DAILY PRN until patient stools. When patient stools, stop giving PRN meds and continue monitoring for bowel activity. When no stools X 1 day, begin regimen again until patient stools. Do not give if Absolute Neutrophil Count (ANC) is 1 k/cmm or less OR platelet count is 50 k/cmm or less. Group 2: nicotine (COMMIT) lozenge 4 mgJump to med 4 mg, Oral, Q1H PRN, Smoking Cessation, Starting on 09/12/24 at 1853, Until 09/13/24 at 1244, Slowly dissolve in mouth. Give gum as first line. Use lozenges if gum is not effective or if patient refuses gum. Maximum 5 lozenges/6 hours OR 20 lozenges/day., Indications: Nicotine Dependence Or nicotine (NICORETTE) gum 4 mgJump to med 4 mg, Oral, Q1H PRN, Smoking Cessation, Starting on 09/12/24 at 1853, Until 09/13/24 at 1244, Slow paced chewing and intermittent packing in cheek. Maximum 24 pieces/day. Give gum as first line. Use lozenges if gum is not effective or if patient refuses gum., Indications: Nicotine Dependence Group 3: OLANZapine (ZyPREXA) tablet 5 mgJump to med 5 mg, Oral, ONCE PRN, Other, For MIAHTAPS Score 3-4, Starting on 09/12/24 at 1912, Until 09/13/24 at 1244, For 1 dose, Give 1x for MIAHTAPS score 3-4. Notify Practitioner in 60 minutes of MIAHTAPS medication administration with patient response. Or OLANZapine (ZyPREXA) 10 mg in sterile water 2 mL injectionJump to med 10 mg, Intramuscular, ONCE PRN, Agitation, For MIAHTAPS Score 5 or greater, Starting on 09/12/24 at 1912, For 1 dose, Give 1x for MIAHTAPS score 5 or greater, notify Practitioner when given, communicate patient's response. DO NOT GIVE WITHIN 60 MINUTES OF PARENTERAL BENZODIAZEPINES. Add 2.1 mL of sterile water for injection to 10 mg vial of olanzapine for a final concentration of 5 mg/mL documented in this encounter Care Teams Harness Mender Relationship Specialty Start Date End Date Margot Huang PA-C [address] [place] [address] PCP - General Physician Line Camera Operator 11/13/16 documented as of this encounter
--- OUTSIDE RECORDS SUMMARY | 2024-09-16 00:39 | XMS_ITS | Encounter Summary ---
Author Organization [employer] Address [address] [place] [address] Care Team Providers Care Nanofabrication Specialist Name Role Phone Margot Huang PA-C Primary Care Provider [phone] Reason for Visit * Reason Comments ANXIETY Wk 3 lexaproProgress ively worse. Atavan only helping for 2 hr.sHx health anxiety DIZZINESS All the time - BREATHING PROBLEM fast Encounter Details Date Type Department Care Team (Late st Contact Info) Description 08/26/2024 3:00 PM EMERGENCY MANAGEMENT COORDINATOR [facility] [address] [place], [place] [address] Rosa Maria Phillips MD [address] [place], [place] [phone] Anxiety (HRC) (Primary Dx); Palpitations Social History [...] Comments Blood Pressure 128/84 08/26/2024 3:02 PM EMERGENCY MANAGEMENT COORDINATOR Pulse 109 08/26/2024 3:02 PM EMERGENCY MANAGEMENT COORDINATOR Temperature - - Respiratory Rate - - Oxygen Saturation - - Inhaled Oxygen Concentration - - Weight 80.3 kg (177 lb) 08/26/2024 3:02 PM EMERGENCY MANAGEMENT COORDINATOR Height - - Body Mass Index 28.57 08/13/2024 8:55 AM CDT documented in this encounter Progress Notes * Rosa Maria Phillips MD - 08/26/2024 3:00 PM CST CHIEF COMPLAINT: Chief Complaint Patient presents with ANXIETY Wk 3 lexapro Progressively worse. Atavan only helping for 2 hr.s [facility] anxiety DIZZINESS All the time - BREATHING [...] List Diagnosis ROSE MARY (generalized anxiety disorder) ([facility]) History of depression Migraine with aura and without status migrainosus, not intractable S/P primary low transverse Gestational hypertension PAST MEDICAL HISTORY : Past Medical History: Diagnosis Date Bipolar affect, depressed ([facility]) Bipolar affective disorder ([facility]) 07/28/2009 Cellulitis of right lower extremity 07/08/2024 Treated at outside urgent care - treated with oral Keflex QID x 10 days Depression ([facility]) Posttraumatic stress disorder ([facility]) 07/28/2009 Right foot pain 07/23/2024 [...] level: Not on file Occupational History 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 Tobacco Use Smoking status: Former Current packs/day: [...] a normal reaction to anxiety and stress GENCY MANAGEMENT COORDINATOR documented in this encounter Plan of Treatment Upcoming Encounters Date Type Department Care Team (Late st Contact Info) Description 09/16/2024 9:00 AM EMERGENCY MANAGEMENT COORDINATOR Telemedicine [address] [address] Rachael Rousseau MD [address] [place] [address] 09/16/2024 10:00 AM EMERGENCY MANAGEMENT COORDINATOR Telemedicine [facility] Partial Hospitalization Program [address] [place], [place] [phone] Rachael Rousseau MD [address] [place] [address] 09/29/2024 1:00 PM EMERGENCY MANAGEMENT COORDINATOR Telemedicine [facility] [address] [place], [place] [phone] Rosa Maria Phillips MD [address] [place], [place] [phone] documented as of this encounter Results * TSH (08/26/2024 3:30 PM EMERGENCY MANAGEMENT COORDINATOR) [facility] TSH, Sensitive 1.10 0.30 - 4.50 uIU/mL 08/26/2024 9:42 PM EMERGENCY MANAGEMENT COORDINATOR [facility] Blood Venipuncture / Unknown 08/26/2024 3:30 PM EMERGENCY MANAGEMENT COORDINATOR 08/26/2024 3:30 PM EMERGENCY MANAGEMENT COORDINATOR Rosa Maria Phillips MD LAB_1 [facility] [address] * (ABNORMAL) Basic Metabolic Panel (08/26/2024 3:30 PM EMERGENCY MANAGEMENT COORDINATOR) [facility] Sodium 140 136 - 145 mmol/L 08/27/2024 10:07 AM [facility] Potassium 3.6 3.5 - 5.1 mmol/L 08/27/2024 10:07 AM [facility] Chloride 110(H) 98 - 109 mmol/L 08/27/2024 10:07 AM [facility] CO2 21 20 - 29 mmol/L 08/27/2024 10:07 AM [facility] Anion Gap 9 6 - 16 mmol/L 08/27/2024 10:07 AM [facility] Calcium 9.6 8.4 - 10.4 mg/dL 08/27/2024 10:07 AM [facility] BUN 9 7 - 26 mg/dL 08/27/2024 10:07 AM [facility] Creatinine 0.72 0.55 - 1.02 mg/dL 08/27/2024 10:07 AM [facility] Glucose 102(H) 70 - 100 mg/dL 08/27/2024 10:07 AM [facility] Comment:The given reference range is for the fasting state. Non-fasting reference range for glucose is 70 - 180 mg/dL. GFR, Estimated >60 >60 mL/min/1.7 3m2 08/27/2024 10:07 AM [facility] Hours Fasting 0.0 8 - 12 Hours 08/27/2024 10:07 AM [facility] Blood Venipuncture / Unknown 08/26/2024 3:30 PM EMERGENCY MANAGEMENT COORDINATOR 08/26/2024 3:30 PM [facility] Rosa Maria Phillips MD LAB_1 [facility] [address] [place] [address] documented in this encounter Visit Diagnoses Diagnosis Anxiety (HRC)- Primary Anxiety state, unspecified Palpitations documented in this encounter Care Teams Nanofabrication Specialist Relationship Specialty Start Date End Date Margot Huang PA-C [address] [place] [address] PCP - General Physician Small Engine Mechanic 11/13/16 documented as of this encounter
--- OUTSIDE RECORDS SUMMARY | 2024-09-16 00:39 | XMS_ITS | Encounter Summary ---
Author Organization [employer] Address [address], [place] [address] Care Team Providers Care Audiology Director Name Role Phone Margot Huang PA-C Primary Care Provider [phone] Reason for Visit * Procedure/Equipment (Routine) - Incomplete Specialty Diagnoses / Procedures Referred By Sukhi t Referred To Contact Diagnoses Right calf pain Procedures US Venous Right Lower Extrem Doppler Antonia Ya PA-C [address] [place] [address] Referral ID Status Reason Start Date Expiration Date V isits Requested Visits Authorized [id number] Incomplete 08/11/2024 11/10/2025 1 1 Encounter Details Date Type Department Care Team (Late st Contact Info) Description 08/11/2024 1:00 PM CDT Ancillary Procedure [facility] [address] [place] [phone] Antonia Ya PA-C [address] [place] [address] Right calf pain Social History [...] st Contact Info) Description 09/16/2024 9:00 AM MOTION PICTURE EQUIPMENT SUPERVISOR Telemedicine [facility] Partial Hospitalization Program [address] [place] [address] Rachael Rousseau MD [address] [place] [address] 09/16/2024 10:00 AM MOTION PICTURE EQUIPMENT SUPERVISOR Telemedicine [facility] Partial Hospitalization Program [address] [place] [address] Rachael Rousseau MD [address] [place] [address] 09/29/2024 1:00 PM MOTION PICTURE EQUIPMENT SUPERVISOR Telemedicine [facility] [address] [place] [address] Rosa Maria Phillips MD [address] [place] [address] documented as of this encounter Procedures Procedure [...] completely excluded by this technique. Antonia SWARTZ US documented in this encounter Visit Diagnoses Diagnosis Right calf pain documented in this encounter Care Teams Audiology Director Relationship Specialty Start Date End Date Margot Huang PA-C [address] [place] [address] PCP - General Physician Jd Edwards Consultant 11/13/16 documented as of this encounter
--- OUTSIDE RECORDS SUMMARY | 2024-09-16 00:39 | XMS_ITS | Encounter Summary ---
Author Organization [employer] Address [address], [place] [address] Care Team Providers Care Optical Glass Sawyer Name Role Phone Margot Huang PA-C Primary Care Provider [phone] Reason for Visit * Reason Comments CONSULT Encounter Details Date Type Department Care Team (Late st Contact Info) Description 08/24/2024 4:00 PM DINING HOST Telemedicine [facility] [address] [place] [phone] Swati Murray MSW, MOTOR VEHICLE ESCORT DRIVER [address] [place] [phone] ROSE MARY (generalized anxiety disorder) (HRC) [...] encounter Progress Notes * Swati Murray MSW, MOTOR VEHICLE ESCORT DRIVER - 08/24/2024 4:00 PM CST BEHAVIORAL HEALTH CONSULTATION - PROGRESS NOTE DATE: 08/24/2024 PATIENT: Kacey Flora PROVIDER: PRATIBHA Vargas, [facility] REFERRING PROVIDER: Rosa Maria Phillips MD [...] patient the role of a Behavioral Health Laboratory Sample Carrier (BHC) including collaboration with the Primary Care [...] 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 Coworkers were hervery good friends, is missing that support. Was evaluated by mental health provider in the ER yesterday, was discharged, they encouraged her t[facility] resources as much as possible since patient [...] DIAGNOSIS 1. ROSE MARY (generalized anxiety disorder) ([facility]) Rule out Health Anxiety Disorder CONSULTATION SUMMARY: [...] it is recommended that the patient follow-[facility]with [facility] as needed. Review provided handouts/resources and practice skills discussed in session. Utilize consultation services for psychoeducation, support, brief assessment, and skill developmentto support active therapeutic needs. Patient is going to try to reestablish care with previous mental health provider, is also willing to use [facility] if needed. Follow up with PCP for scheduled visit. Electronically signed by: PRATIBHA Vargas LICSW Behavioral Health Laboratory Sample Carrier 08/24/2024, 6:19 PM NG HOST documented in this encounter Plan of Treatment Upcoming Encounters Date Type Department Care Team (Late st Contact Info) Description 09/16/2024 9:00 AM DINING HOST Telemedicine [facility] Partial Hospitalization Program [address] [place] [address] Rachael Rousseau MD [address] [place] [address] 09/16/2024 10:00 AM DINING HOST Telemedicine [facility] Partial Hospitalization Program [address] [place] [address] Rachael Rousseau MD [address] [place] [address] 09/29/2024 1:00 PM DINING HOST [facility] [address] [place] [address] Rosa Maria Phillips MD [address] [place] [address] documented as of this encounter Visit Diagnoses Diagnosis ROSE MARY (generalized anxiety disorder) (HRC)- Primary Generalized anxiety disorder documented in this encounter Care Teams Optical Glass Sawyer Relationship Specialty Start Date End Date Margot Huang PA-C [address] [place] [address] PCP - General Physician Primary Counselor 11/13/16 documented as of this encounter
--- OUTSIDE RECORDS SUMMARY | 2024-09-16 00:39 | XMS_ITS | Encounter Summary ---
Author Organization [employer] Address [address], [place] [address] Care Team Providers Care Clinical Interviewer Name Role Phone Margot Huang PA-C Primary Care Provider [phone] Encounter Details Date Type Department Care Team (Late st Contact Info) Description 08/26/2024 3:30 PM REVERBERATORY FURNACE OPERATOR Lab Visit [facility] [address] [place] [address] Anxiety (HRC); Palpitations Social History Tobacco Use [...] st Contact Info) Description 09/16/2024 9:00 AM REVERBERATORY FURNACE OPERATOR Telemedicine [facility] Partial Hospitalization Program [address] [place] [address] Rachael Rousseau MD [address] [place] [address] 09/16/2024 10:00 AM REVERBERATORY FURNACE OPERATOR Telemedicine [facility] Partial Hospitalization Program [address] [place] [address] Rachael Rousseau MD [address] [place] [address] 09/29/2024 1:00 PM REVERBERATORY FURNACE OPERATOR Telemedicine [facility] [address] [place], [place] [id number] Rosa Maria Phillips MD [address] [place], [place] [address] documented as of this encounter Procedures Procedure Name Priority Date/Time Associated Diagnosis Comments CBC AND DIFFERENTIAL PANEL Routine 08/26/2024 3:30 PM REVERBERATORY FURNACE OPERATOR Anxiety (HRC) Palpitations COMPLETE BLOOD COUNT-W/DIFF Routine 08/26/2024 3:30 PM REVERBERATORY FURNACE OPERATOR Anxiety (HRC) Palpitations TSH, SENSITIVE Routine 08/26/2024 3:30 PM REVERBERATORY FURNACE OPERATOR Anxiety (HRC) Palpitations BASIC METABOLIC PANEL Routine 08/26/2024 3:30 PM REVERBERATORY FURNACE OPERATOR Anxiety (HRC) Palpitations documented in this encounter Results * Complete Blood Count-W/Diff (08/26/2024 3:30 PM REVERBERATORY FURNACE OPERATOR) WBC 6.5 3.5 - 10.5 x10(9)/L 08/26/2024 3:36 PM REVERBERATORY FURNACE OPERATOR [facility] RBC 4.95 3.90 - 5.03 x10(12)/L 08/26/2024 3:36 PM REVERBERATORY FURNACE OPERATOR [facility] Hemoglobin 14.8 12.0 - 15.5 g/dL 08/26/2024 3:36 PM REVERBERATORY FURNACE OPERATOR [facility] HCT 43.5 34.9 - 44.5 % 08/26/2024 3:36 PM REVERBERATORY FURNACE OPERATOR [facility] MCV 87.9 80.0 - 100.0 fL 08/26/2024 3:36 PM REVERBERATORY FURNACE OPERATOR [facility] MCH 29.9 27.6 - 33.3 pg 08/26/2024 3:36 PM REVERBERATORY FURNACE OPERATOR [facility] MCHC 34.0 31.5 - 35.2 g/dL 08/26/2024 3:36 PM REVERBERATORY FURNACE OPERATOR [facility] RDW 13.1 11.9 - 15.5 % 08/26/2024 3:36 PM REVERBERATORY FURNACE OPERATOR [facility] Platelets 264 150 - 450 x10(9)/L 08/26/2024 3:36 PM REVERBERATORY FURNACE OPERATOR [facility] Neutrophil Absolute 4.5 1.7 - 7.0 10(9)/L 08/26/2024 3:36 PM REVERBERATORY FURNACE OPERATOR [facility] Lymphocyte Absolute 1.4 1.0 - 4.8 10(9)/L 08/26/2024 3:36 PM REVERBERATORY FURNACE OPERATOR [facility] Monocyte Absolute 0.5 0.2 - 0.9 10(9)/L 08/26/2024 3:36 PM REVERBERATORY FURNACE OPERATOR [facility] Eosinophil Absolute 0.0 0.0 - 0.5 10(9)/L 08/26/2024 3:36 PM REVERBERATORY FURNACE OPERATOR [facility] Basophil Absolute 0.0 0.0 - 0.3 10(9)/L 08/26/2024 3:36 PM REVERBERATORY FURNACE OPERATOR [facility] Blood Venipuncture / Unknown 08/26/2024 3:30 PM REVERBERATORY FURNACE OPERATOR 08/26/2024 3:30 PM REVERBERATORY FURNACE OPERATOR Rosa Maria Phillips MD LAB_1 [facility] [address] [place] [address], [facility] * TSH (08/26/2024 3:30 PM REVERBERATORY FURNACE OPERATOR) TSH, Sensitive 1.10 0.30 - 4.50 uIU/mL 08/26/2024 9:42 PM REVERBERATORY FURNACE OPERATOR [facility] Blood Venipuncture / Unknown 08/26/2024 3:30 PM REVERBERATORY FURNACE OPERATOR 08/26/2024 3:30 PM REVERBERATORY FURNACE OPERATOR Rosa Maria Phillips MD LAB_1 [facility] [address] [place], [place] [id number] [place] [address] * (ABNORMAL) Basic Metabolic Panel (08/26/2024 3:30 PM REVERBERATORY FURNACE OPERATOR) Sodium 140 136 - 145 mmol/L 08/27/2024 10:07 AM [facility] Potassium 3.6 3.5 - 5.1 mmol/L 08/27/2024 10:07 AM [facility] Chloride 110(H) 98 - 109 mmol/L 08/27/2024 10:07 AM [facility] CO2 21 20 - 29 mmol/L 08/27/2024 10:07 AM [facility] Anion Gap 9 6 - 16 mmol/L 08/27/2024 10:07 AM [facility] Calcium 9.6 8.4 - 10.4 mg/dL 08/27/2024 10:07 AM [facility] BUN 9 7 - 26 mg/dL 08/27/2024 10:07 AM [facility] Creatinine 0.72 0.55 - 1.02 mg/dL 08/27/2024 10:07 AM [facility] Glucose 102(H) 70 - 100 mg/dL 08/27/2024 10:07 AM [facility] Comment:The given reference range is for the fasting state. Non-fasting reference range for glucose is 70 - 180 mg/dL. GFR, Estimated >60 >60 mL/min/1.7 3m2 08/27/2024 10:07 AM [facility] Hours Fasting 0.0 8 - 12 Hours 08/27/2024 10:07 AM [facility] Blood Venipuncture / Unknown 08/26/2024 3:30 PM REVERBERATORY FURNACE OPERATOR 08/26/2024 3:30 PM [facility] Rosa Maria Phillips MD LAB_1 [facility] [address] [place] [address], [facility] documented in this encounter Visit Diagnoses Diagnosis Anxiety (HRC) Anxiety state, unspecified Palpitations documented in this encounter Care Teams Clinical Interviewer Relationship Specialty Start Date End Date Margot Huang PA-C [address] [place] [address] PCP - General Physician Tunnel Miner 11/13/16 documented as of this encounter
--- OUTSIDE RECORDS SUMMARY | 2024-09-16 00:40 | XMS_ITS | Referral Summary ---
Author Organization [facility] Address [address] [place] [address] Care Team Providers Care Build Manager Name Role Phone Clinic, [facility] Primary Care Pr ovider Encounters Date Type Department Care Team Description 09/09/2024 Travel 09/09/2024 1:48 PM MAPPING ENGINEER - 09/09/2024 3:52 PM MAPPING ENGINEER Emergency [facility] Emergency Dept [address] [place] [address] Danish Marmolejo MD Anxiety; Other insomnia Discharge Disposition: Home or Self Care 09/04/2024 Travel 09/04/2024 7:39 PM MAPPING ENGINEER - 09/04/2024 11:48 PM [facility] Emergency [facility] Emergency Dept [address] [place] [address] Juarez Gonzalez MD Palpitations; Hypokalemia; Anxiety Discharge Disposition: Home or Self Care 09/01/2024 Documentation Only [facility] [address] [place] [address] Tracey Whitley Advance Care Planning 08/31/2024 Telephone [facility] Services - Behavioral Service Line [address] [place] [address] Kiki Chairez 08/28/2024 Travel 08/28/2024 3:22 PM MAPPING ENGINEER - 08/28/2024 6:57 PM [facility] Emergency [facility] Emergency Dept [address] [place] [address] Yvon Mack MD Generalized anxiety disorder with panic attacks Discharge Disposition: Home or Self Care 08/27/2024 [facility] Services - Behavioral Service Line [address] [place] [address] FranCaroline Dasha 08/26/2024 Travel 08/26/2024 7:06 PM MAPPING ENGINEER - 08/26/2024 11:00 PM [facility] Emergency [facility] Emergency Dept [address] [place] [address] Juarez Gonzalez MD ROSE MARY (generalized anxiety disorder); Generalized anxiety disorder with panic attacks Discharge Disposition: Home or Self Care 08/24/2024 Documentation Only [facility] [address] [place] [address] Tracey Whitley Advance Care Planning 08/23/2024 Travel 08/23/2024 11:33 AM MAPPING ENGINEER - 08/23/2024 4:11 PM [facility] Emergency [facility] Emergency Dept [address] [place] [address] Myles Murillo MD Anxiety about health; Anxiety [...] needed for anxiety. 12 tablet 08/26/2024 Active traZODone (DESYREL) 50 MG tablet Take 1-2 tablets (50-100 mg) by mouth at bedtime. 30 tablet 09/09/2024 Active ALPRAZolam (XANAX) 0.5 MG tablet Take 1 tablet (0.5 mg) by mouth 3 times daily as needed for anxiety. 9 tablet 09/09/2024 Active potassium chloride (KLOR-CON) 20 MEQ packet Take 20 mEq by mouth 2 times daily for 3 days. 6 packet 09/04/2024 09/07/20 24 Active Problems Problem Noted Date Diagnosed Date [...] on file Legal Sex Female 4:22 AM MAPPING ENGINEER Gender Identity Not on file Sexual Orientation Not on file Last Filed Vital Signs Vital Sign Reading Time Taken Comments Blood Pressure 120/70 09/09/2024 3:50 PM MAPPING ENGINEER Pulse 71 09/09/2024 3:50 PM MAPPING ENGINEER Temperature 36.3 C (97.4 F) 09/09/2024 1:33 PM MAPPING ENGINEER Respiratory Rate 17 09/09/2024 3:50 PM MAPPING ENGINEER Oxygen Saturation 98% 09/09/2024 3:50 PM MAPPING ENGINEER Inhaled Oxygen Concentration - - Weight 80.3 kg (177 lb) 09/09/2024 1:33 PM MAPPING ENGINEER Height 167.6 cm (5' 6) 09/09/2024 1:33 PM MAPPING ENGINEER Body Mass Index 28.57 09/09/2024 1:33 PM MAPPING ENGINEER Plan of Treatment Not on file Procedures Procedure Name Priority Date/Time Associated Diagnosis Comments XR CHEST 2 VIEWS STAT 09/04/2024 9:47 PM MAPPING ENGINEER D DIMER QUANTITATIVE STAT 09/04/2024 8:29 PM MAPPING ENGINEER CBC WITH PLATELETS & DIFFERENTIAL STAT 09/04/2024 7:39 PM MAPPING ENGINEER MAGNESIUM STAT 09/04/2024 7:39 PM MAPPING ENGINEER CBC WITH PLATELETS AND DIFFERENTIAL STAT 09/04/2024 7:39 PM MAPPING ENGINEER BASIC METABOLIC PANEL STAT 09/04/2024 7:39 PM MAPPING ENGINEER TROPONIN T, HIGH SENSITIVITY STAT 09/04/2024 7:39 PM MAPPING ENGINEER EKG 12-LEAD, TRACING ONLY STAT 09/04/2024 7:35 PM MAPPING ENGINEER EKG CARDIAC - HIM SCAN 09/04/2024 12:00 AM MAPPING ENGINEER EKG CARDIAC - HIM SCAN 09/01/2024 12:00 AM MAPPING ENGINEER EKG 12-LEAD, TRACING ONLY STAT 08/28/2024 5:30 PM MAPPING ENGINEER EKG 12-LEAD, TRACING ONLY STAT 08/23/2024 12:09 PM MAPPING ENGINEER HIV ANTIGEN ANTIBODY COMBO Routine 04/16/2018 HEPATITIS C ANTIBODY Routine 08/18/2014 9:29 AM CDT Screen for STD (sexually transmitted disease) PAP IMAGED THIN LAYER SCREEN Routine 08/18/2014 12:00 AM CDT Routine General Medical Examination At A [facility] Papanicolaou Smear Of Cervix With Low Grade Squamous Intraepithelial Lesion (Lgsil) from Last 3 Months or Most Recently Relevant to Health Maintenance Results * XR Chest 2 Views (09/04/2024 9:47 PM MAPPING ENGINEER) Anatomical Region Laterality Modality Chest Digital Radiogra phy 09/04/2024 9:47 PM MAPPING ENGINEER Impressions 09/04/2024 10:30 PM MAPPING ENGINEER IMPRESSION: No evidence of active cardiopulmonary disease. Narrative 09/04/2024 10:30 PM MAPPING ENGINEER EXAM: CHEST 2 VIEWS LOCATION: [facility] DATE: 09/04/2024 INDICATION: Chest pain. COMPARISON: None. FINDINGS: The lungs are clear. Normal size cardiac silhouette. Procedure Note Khoi Mejia MD - 09/04/2024 EXAM: CHEST 2 VIEWS LOCATION: [facility] DATE: 09/04/2024 INDICATION: Chest pain. COMPARISON: None. FINDINGS: The lungs are clear. Normal size cardiac silhouette. IMPRESSION: No evidence of active cardiopulmonary disease. us Juarez Gonzalez MD IMG DIAGNOSTIC IMAGING ORDERABLES Final Result * D dimer quantitative (09/04/2024 8:29 PM MAPPING ENGINEER) Pathologist [facility] D-Dimer Quantitative <0.27 0.00 - 0.50 ug/mL FEU 09/04/2024 8:50 PM MAPPING ENGINEER [facility] Blood BLOOD SPECIMEN / Unknown Venipuncture / Unknown 09/04/2024 8:29 PM MAPPING ENGINEER 09/04/2024 8:33 PM MAPPING ENGINEER Narrative [facility] - 09/04/2024 8:50 PM MAPPING ENGINEER This D-dimer assay is intended for use in conjunction with a clinical pretest probability assessment model to exclude pulmonary embolism (PE) and deep venous thrombosis (DVT) in outpatients suspected of PE or DVT. The cut-off value is 0.50 ug/mL FEU. us Juarez Gonzalez MD LAB - BLOOD ORDERABLES Final Result [facility] [address] [place] Lab (1st floor, no room number) [place] [address] * CBC with platelets and differential (09/04/2024 7:39 PM MAPPING ENGINEER) Pathologist [facility] WBC Count 7.5 4.0 - 11.0 10e3/uL 09/04/2024 7:59 PM MAPPING ENGINEER [facility] RBC Count 4.83 3.80 - 5.20 10e6/uL 09/04/2024 7:59 PM MAPPING ENGINEER [facility] Hemoglobin 14.0 11.7 - 15.7 g/dL 09/04/2024 7:59 PM MAPPING ENGINEER [facility] Hematocrit 42.2 35.0 - 47.0 % 09/04/2024 7:59 PM MAPPING ENGINEER [facility] MCV 87 78 - 100 fL 09/04/2024 7:59 PM MAPPING ENGINEER [facility] MCH 29.0 26.5 - 33.0 pg 09/04/2024 7:59 PM MAPPING ENGINEER [facility] MCHC 33.2 31.5 - 36.5 g/dL 09/04/2024 7:59 PM MAPPING ENGINEER [facility] RDW 12.3 10.0 - 15.0 % 09/04/2024 7:59 PM MAPPING ENGINEER [facility] Platelet Count 242 150 - 450 10e3/uL 09/04/2024 7:59 PM MAPPING ENGINEER [facility] % Neutrophils 69 % 09/04/2024 7:59 PM MAPPING ENGINEER [facility] % Lymphocytes 23 % 09/04/2024 7:59 PM MAPPING ENGINEER [facility] % Monocytes 7 % 09/04/2024 7:59 PM MAPPING ENGINEER [facility] % Eosinophils 1 % 09/04/2024 7:59 PM MAPPING ENGINEER [facility] % Basophils 1 % 09/04/2024 7:59 PM MAPPING ENGINEER [facility] % Immature Granulocytes 0 % 09/04/2024 7:59 PM MAPPING ENGINEER [facility] NRBCs per 100 WBC 0 <1 /100 024 7:59 PM MAPPING ENGINEER [facility] Absolute Neutrophils 5.2 1.6 - 8.3 10e3/uL 09/04/2024 7:59 PM MAPPING ENGINEER [facility] Absolute Lymphocytes 1.7 0.8 - 5.3 10e3/uL 09/04/2024 7:59 PM MAPPING ENGINEER [facility] Absolute Monocytes 0.5 0.0 - 1.3 10e3/uL 09/04/2024 7:59 PM MAPPING ENGINEER [facility] Absolute Eosinophils 0.1 0.0 - 0.7 10e3/uL 09/04/2024 7:59 PM MAPPING ENGINEER [facility] Absolute Basophils 0.0 0.0 - 0.2 10e3/uL 09/04/2024 7:59 PM MAPPING ENGINEER [facility] Absolute Immature Granulocytes 0.0 <=0.4 10e3/uL 09/04/2024 7:59 PM MAPPING ENGINEER [facility] Absolute NRBCs 0.0 10e3/uL 09/04/2024 7:59 PM MAPPING ENGINEER [facility] Blood STRUCTURE OF LEFT UPPER LIMB / Unknown Venipuncture / Unknown 09/04/2024 7:39 PM MAPPING ENGINEER 09/04/2024 7:56 PM MAPPING ENGINEER us Juarez Gonzalez MD LAB - BLOOD ORDERABLES Final Result [facility] [address] [place] Lab (1st floor, no room number) [place] [address] * Troponin T, High Sensitivity (09/04/2024 7:39 PM MAPPING ENGINEER) Troponin T, High Sensitivity <6 <=14 ng/L 09/04/2024 8:23 PM MAPPING ENGINEER LABORATORY Comment: Either a High Sensitivity Troponin [...] Unknown Venipuncture / Unknown 09/04/2024 7:39 PM MAPPING ENGINEER 09/04/2024 7:56 PM MAPPING ENGINEER Juarez Gonzalez MD LAB - BLOOD ORDERABLES Final Result Performing Organization Address City/[facility]/ZIP Co de Phone Number [facility] [address] [facility] Lab (1st floor, no room number) [address] * Magnesium (09/04/2024 7:39 PM MAPPING ENGINEER) Pathologist [facility] Magnesium 2.2 1.7 - 2.3 mg/dL 09/04/2024 8:31 PM MAPPING ENGINEER LABORATORY Blood STRUCTURE OF LEFT UPPER LIMB / Unknown Venipuncture / Unknown 09/04/2024 7:39 PM MAPPING ENGINEER 09/04/2024 7:56 PM MAPPING ENGINEER Juarez Gonzalez MD LAB - BLOOD ORDERABLES Final Result [facility] [address] Lab (1st floor, no room number) [address] * (ABNORMAL) Basic metabolic panel (BMP) (09/04/2024 7:39 PM MAPPING ENGINEER) Sodium 139 135 - 145 mmol/L 09/04/2024 8:23 PM [facility] Potassium 3.4 3.4 - 5.3 mmol/L 09/04/2024 8:23 PM [facility] Chloride 104 98 - 107 mmol/L 09/04/2024 8:23 PM [facility] Carbon Dioxide (CO2) 23 22 - 29 mmol/L 09/04/2024 8:23 PM [facility] Anion Gap 12 7 - 15 mmol/L 09/04/2024 8:23 PM [facility] Urea Nitrogen 7.2 6.0 - 20.0 mg/dL 09/04/2024 8:23 PM [facility] Creatinine 0.72 0.51 - 0.95 mg/dL 09/04/2024 8:23 PM [facility] GFR Estimate >90 >60 mL/min/1.7 3m2 09/04/2024 8:23 PM [facility] Comment:eGFR calculated 2020 CKD-EPI equation. Calcium 9.6 8.8 - 10.4 mg/dL 09/04/2024 8:23 PM [facility] Comment:Reference intervals for this test were updated on 05/05/2024 to reflect our healthy population more accurately. There may be differences in the flagging of prior results with similar values performed with this method. Those prior results can be interpreted in the context of the updated reference intervals. Glucose 112(H) 70 - 99 mg/dL 09/04/2024 8:23 PM [facility] Blood STRUCTURE OF LEFT UPPER LIMB / Unknown Venipuncture / Unknown 09/04/2024 7:39 PM MAPPING ENGINEER 09/04/2024 7:56 PM MAPPING ENGINEER us Juarez Gonzalez MD LAB - BLOOD ORDERABLES Final Result LABORATORY [facility] [address] Lab (1st floor, no room number) [place] [address], [facility] * EKG 12 lead (09/04/2024 7:35 PM MAPPING ENGINEER) Only the most recent of3 resultswithin the time period is included. Systolic Blood Pressure mmHg RADIOLOGY RESULTS Diastolic Blood Pressure mmHg RADIOLOGY RESULTS Ventricular Rate 76 BPM RAD IOLOGY RESULTS Atrial Rate 76 BPM RADIOLOG Y RESULTS RI Interval 124 ms RADIOLOG Y RESULTS QRS Duration 86 ms RADIOLO GY RESULTS QT 362 ms RADIOLOGY RESULTS QTc 407 ms RADIOLOGY RESULTS P [place] 45 degrees RADIOLOGY RESULTS R AXIS 81 degrees RADIOLOGY RESULTS T [place] -17 degrees RADIOLOGY RESULTS Interpretation ECG Sinus [...] Confirmed by - EMERGENCY ROOM, PHYSICIAN ([id number]), publications editor ILEANA KYLE ([id number]) on 09/07/2024 7:08:49 AM RADIOLOGY RESULTS 09/04/2024 7:35 PM MAPPING ENGINEER 09/07/2024 7:08 AM MAPPING ENGINEER Juarez Gonzalez MD ECG ORDERABLES Edited Result - Final RADIOLOGY RESULTS * EKG Cardiac - HIM Scan (09/04/2024 12:00 AM MAPPING ENGINEER) Only the most recent of2 resultswithin the time period is included. 09/04/2024 Provider Outside ECG ORDERABLES Final Result * HIV Antigen Antibody Combo (04/16/2018) HIV Antigen Antibody Combo negative Blood specimen (specimen) Patient Reported LAB - BLOOD ORDERABLES Final Re sult * Hepatitis C antibody (08/18/2014 9:29 AM CDT) Hepatitis C Antibody Negative [facility] Blood specimen (specimen) 08/18/2014 9:29 AM CDT 08/18/2014 9:32 AM CDT Wiliam Lagunas PA-C LAB - BLOOD ORDERABL ES Final Result [address] [address], [facility] * PAP imaged thin layer, screen (08/18/2014 12:00 AM CDT) PAP NIRMALA Clemonsath Report Patient Name: TURNER TIDWELL MR#: [id number] Specimen #: [id number] Collected: 08/18/2014 Received: 08/19/2014 Reported: 08/24/2014 12:44 [...] ASCP) Processed and screened at [facility] CLINICAL HISTORY: LMP: 08/09/2014 Previous normal pap Date of Last Pap: 04/10/2012 Previous abnormal pap: lgsil, Papanicolaou Test Limitations: Cervical cytology is a screening test with limited sensitivity; regular screening is critical for cancer prevention; Pap tests are primarily effective for the diagnosis/preventi on of squamous cell carcinoma, not adenocarcinomas or other cancers. TESTING LAB LOCATION: [address] [address] COLLECTION SITE: Client: [facility] Location: [facility] (R) [facility] Cytologic material (specimen) 08/18/2014 08/19/2014 11:48 AM CDT us Wiliam Lagunas PA-C LAB - OPTIME [facility]INICA L SPECIMEN Final Result COPATH from Last 3 Months or Most Recently Relevant to Health Maintenance Care Teams Build Manager Relationship Specialty Start Date End Date Clinic, [facility] [employer] [address] [place] [address] PCP - General 08/23/24
--- OUTSIDE RECORDS SUMMARY | 2024-09-16 00:40 | XMS_ITS | Encounter Summary ---
Author Organization [facility] hospital Address [address] [place] [address] Care Team Providers Care Continuous Dryout Operator Helper Name Role Phone Margot Huang PA-C Primary Care Provider [phone] Reason for Visit * Reason Comments CELLULITIS Encounter Details Date Type Department Care Team (Late st Contact Info) Description 07/23/2024 7:30 AM CDT Telemedicine [facility] [address] [place] [address] Steve Stoll PA-C [address] [place] [address] Right foot pain (Primary Dx); Cellulitis of [...] Additionally, you may receive a survey [facility] through [employer], phone or mail about your visit with [...] out to me via clinic line or [employer] if there is ever anything you need. Nehemiah Stoll PA-C [facility] documented in this encounter Progress Notes * Steve Stoll PA-C - 07/23/2024 7:30 AM CDT Images from the original note were not included. [facility] Nehemiah Stoll PA-C Kacey Hines 33 y.o. [...] She states she was recently treated at [facility] urgent care for cellulitis of her [...] of visit. Nehemiah Stoll PA-C Family Medicine [facility] documented in this encounter Plan of Treatment Upcoming Encounters Date Type Department Care Team (Late st Contact Info) Description 09/16/2024 9:00 AM TAPPER SHANK Telemedicine [facility] Partial Hospitalization Program [address] [place] [address] Rachael Rousseau MD [address] [place] [address] 09/16/2024 10:00 AM TAPPER SHANK Telemedicine [facility] Partial Hospitalization Program [address] [place] [address] Rachael Rousseau MD [address] [place] [address] 09/29/2024 1:00 PM TAPPER SHANK Telemedicine [facility] [address] [place], [place] [address] Rosa Maria Phillips MD [address] [place], [place] [phone] documented as of this encounter Visit Diagnoses Diagnosis Right foot pain- Primary Pain in limb Cellulitis of right lower extremity Cellulitis and abscess of leg, except foot documented in this encounter Care Teams Continuous Dryout Operator Helper Relationship Specialty Start Date End Date Margot Huang, PAKeenanC [address] [place] [address] PCP - General Physician Yolk Spray Drier 11/13/16 documented as of this encounter
--- OUTSIDE RECORDS SUMMARY | 2024-09-16 00:40 | XMS_ITS | Encounter Summary ---
Author Organization [employer] Address [address], [place] [address] Care Team Providers Care Purchasing And Fiscal Clerk Name Role Phone Margot Huang PA-C Primary Care Provider [phone] Reason for Referral * Therapies (Routine) - New Request Specialty Diagnoses / Procedures Referred By Sukhi hassan Referred To Contact Diagnoses Low back pain, unspecified back pain laterality, unspecified chronicity, unspecified whether sciatica present Right calf pain Antonia Ya PA-C [address] [place] [address] Referral ID Status Reason Start Date Expiration Date V isits Requested Visits Authorized [id number] New Request 08/11/2024 08/11/2025 1 1 Scheduling Instructions Your clinician has recommended an appointment with [facility]. You can quickly schedule your appointment by signing in to your online account at [email or web address] or through the text message you may have received. You can also make an appointment by calling [phone]. We suggest you call your health insurance [...] present Right calf pain Antonia Ya PA-C [address] [place] [address] Referral ID Status Reason Start Date Expiration Date V isits Requested Visits Authorized [id number] New Request 08/11/2024 11/09/2024 1 1 Scheduling Instructions Your provider has recommended an appointment with [facility]. You can quickly make your appointment online at [email or web address]. You can also call [phone] for help scheduling your appointment. We suggest [...] Right Lower Extrem Doppler Antonia Ya PA-C [address] [place] [address] Referral ID Status Reason Start Date Expiration Date V isits Requested Visits Authorized [id number] Incomplete 08/11/2024 11/10/2025 1 1 Reason for Visit * Reason Comments Back Pain LEG PAIN Encounter Details Date Type Department Care Team (Late st Contact Info) Description 08/11/2024 12:40 PM CDT Office Visit [phone] [address] [place] [phone] Antonia Ya PA-C [address] [place] [address] Low back pain, unspecified back pain laterality, [...] be sent through Care Everywhere. * Sciatica (Algerian) documented in this encounter Progress Notes * [...] Color Yellow Urine Clarity Clear Clear Specific [place], Urine >=1.030 (A) 1.005 - 1.030 PH [...] st Contact Info) Description 09/16/2024 9:00 AM INSURANCE COMPLIANCE ANALYST Telemedicine [facility] Hospitalization [address] [address] Rachael Rousseau MD [address] [place] [address] 09/16/2024 10:00 AM INSURANCE COMPLIANCE ANALYST Telemedicine [facility] Hospital[facility] [address] [place] [address] Rachael Rousseau MD [address] [place] [address] 09/29/2024 1:00 PM INSURANCE COMPLIANCE ANALYST Telemedicine [facility] [address] [place], [place] [address] Rosa Maria Phillips MD [address] [place], [place] [address] Scheduled Referrals Name Type Priority Associated Diagnoses [...] excluded by this technique. Antonia Ya PA-C [facility] * (ABNORMAL) Urine Culture - Collect in Lab (08/11/2024 10:18 AM CDT) Urine Culture Growth(A) 08/12/2024 10:20 PM [facility] Urine Culture <10,000 CFU/mL Mixed Bacterial Growth 08/12/2024 10:20 PM [facility] Comment: Mixed Bacterial Growth indicates the specimen is likely contaminated at collection with urogenital and/or fecal satinder. The presence of organisms at <10,000 cfu/ml in culture, UTI unlikely. Urine URINE SPECIMEN COLLECTION, CLEAN CATCH / Unknown Non-blood Collection / Unknown 08/11/2024 10:18 AM CDT 08/11/2024 10:35 AM CDT Antonia Ya PA-C LAB_[address] [address], [facility] * (ABNORMAL) Urine Microscopic Evaluation: Clean Catch (08/11/2024 10:18 AM CDT) Red Blood Cells 0-3 0 - 3 /HPF 10:54 AM CDT [facility] White Blood Cells 6-9(A) 0 - 5 /HPF 08/11/2024 10:54 AM CDT [facility] Bacteria Moderate(A ) None Seen /HPF 08/11/2024 10:54 AM T [facility] Squamous Epithelial Cells Moderate(A ) None Seen, Occasional , Few /HPF 08/11/2024 10:54 AM T [facility] Mucus Present(A) None Seen /HPF 08/11/2024 10:54 AM T [facility] Urine URINE SPECIMEN COLLECTION, CLEAN CATCH / Unknown Non-blood Collection / Unknown 08/11/2024 10:18 AM CDT 08/11/2024 10:35 AM CDT Laurent CARROLL LAB_1 [facility] [address] [place] [address] * (ABNORMAL) Urinalysis Routine, Micro/Culture if Pos: Clean Catch (08/11/2024 10:18 AM CDT) Pathologist [facility] Urine Culture Comment Urinalysis results do not meet criteria for urine culture reflex. 08/11/2024 10:54 AM T [facility] Color Yellow 08/11/2024 10:54 AM T [facility] Clarity Clear Clear 08/11/2024 10:54 AM T [facility] Specific [place] >=1.030(A) 1.005 - 1.030 08/11/2024 10:54 AM T [facility] pH 5.5 5.0 - 8.0 08/11/2024 10:54 AM T [facility] Protein Negative Neg/Trace 08/11/2024 10:54 AM [facility] Glucose Negative Negative 08/11/2024 10:54 AM [facility] Ketones 15(A) Negative 08/11/2024 10:54 AM T [facility] Urobilinogen 0.2 <2.0 08/11/2024 10:54 AM CDT [facility] Bilirubin Negative Negative 08/11/2024 10:54 AM CDT [facility] Blood Negative Neg/Trace 08/11/2024 10:54 AM CDT [facility] Nitrite Negative Negative 08/11/2024 10:54 AM CDT [facility] Leukocyte Esterase Trace(A) Negative 08/11/2024 10:54 AM CDT [facility] Source Clean Catch 08/11/2024 10:54 AM CDT [facility] Urine URINE SPECIMEN COLLECTION, CLEAN CATCH / Unknown Non-blood Collection / Unknown 08/11/2024 10:18 AM CDT 08/11/2024 10:35 AM CDT Laurent CHIU LAB_1 [facility] [address] [place] [address], [facility] documented in this encounter Visit Diagnoses Diagnosis Low back pain, unspecified back pain laterality, unspecified chronicity, unspecified whether sciatica present Right calf pain Right calf pain documented in this encounter Care Teams Purchasing And Fiscal Clerk Relationship Specialty Start Date End Date Margot Huang PA-C [address] [place] [address] PCP - General Physician Dump Motor Operator 11/13/16 documented as of this encounter
--- OUTSIDE RECORDS SUMMARY | 2024-09-16 00:40 | XMS_ITS | Encounter Summary ---
Author Organization [employer] Address [address] [place] [address] Care Team Providers Care Operational Risk Analyst Name Role Phone Margot Huang PA-C Primary Care Provider [phone] Reason for Visit * Reason Comments Leg Pain Ever since having ce llulitis on her right leg, she gets weird sensations. She went to the ER in [place] and was told she could possibly have MS. She does get tingling sensations in her feet. Encounter Details Date Type Department Care Team (Late st Contact Info) Description 08/06/2024 9:40 AM CDT [facility] [address] [place], [place] [phone] Robert Valdez, [facility] [address] [place], [place] [phone] Generalized anxiety disorder with panic attacks (HRC) [...] this encounter Progress Notes * Robert Valdez, [facility] - 08/06/2024 9:40 AM CDT Chief Complaint Patient presents with Leg Pain Ever since having cellulitis on her right leg, she gets weird sensations. 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 documented in this encounter Plan of Treatment Upcoming Encounters Date Type Department Care Team (Late st Contact Info) Description 09/16/2024 9:00 AM MACHINE PULLER AND LASTER Telemedicine [facility] Partial Hospitalization Program [address] [place] [address] Rachael Rousseau MD [address] [place] [address] 09/16/2024 10:00 AM MACHINE PULLER AND LASTER Telemedicine [facility] Partial Hospitalization Program [address] [place] [address] Rachael Rousseau MD [address] [place] [address] 09/29/2024 1:00 PM MACHINE PULLER AND LASTER Telemedicine [facility] [address] [place], [place] [phone] Rosa Maria Phillips MD [address] [place], [place] [address] documented as of this encounter Visit Diagnoses Diagnosis Generalized anxiety disorder with panic attacks (HRC)- Primary History of depression Personal history of other mental disorder documented in this encounter Care Teams Operational Risk Analyst Relationship Specialty Start Date End Date Margot Huang PA-C [address] [place] [address] PCP - General Physician Laboratory Assistant 11/13/16 documented as of this encounter
--- OUTSIDE RECORDS SUMMARY | 2024-09-16 00:40 | XMS_ITS | Clinical Summary ---
Author Organization [employer] Address [address] [place] [address] Care Team Providers Care Educational Assistant Name Role Phone [facility] Pr ovider Allergies Active Allergy [...] Date Type Department Care Team Description 09/09/2024 1:48 PM LIBRARY TECHNOLOGY INSTRUCTOR - 09/09/2024 3:52 PM [facility] Emergency [facility] Emergency Dept [address] [place] [address] Danish Marmolejo MD Anxiety; Other insomnia Discharge Disposition: Home or Self Care 09/09/2024 Travel 09/04/2024 7:39 PM LIBRARY TECHNOLOGY INSTRUCTOR - 09/04/2024 11:48 PM [facility] Emergency [facility] Emergency Dept [address] [place] [address] Juarez Gonzalez MD Palpitations; Hypokalemia; Anxiety Discharge Disposition: Home or Self Care 09/04/2024 Travel 09/01/2024 Documentation Only [facility] [address] [facility] [address] [place] [phone] Tracey Whitley Advance Care Planning 08/31/2024 Telephone [facility] Services - Behavioral Service Line [address] [place] [address] Kiki Chairez 08/28/2024 3:22 PM LIBRARY TECHNOLOGY INSTRUCTOR - 08/28/2024 6:57 PM [facility] Emergency [facility] Emergency Dept [address] [place] [address] Yvon Mack MD Generalized anxiety disorder with panic attacks Discharge Disposition: Home or Self Care 08/28/2024 Travel 08/27/2024 [facility] - Behavioral Service Line [address] [place] [address] Caroline Peters 08/26/2024 7:06 PM LIBRARY TECHNOLOGY INSTRUCTOR - 08/26/2024 11:00 PM LIBRARY TECHNOLOGY INSTRUCTOR Emergency [facility] Emergency Dept [address] [place] [address] Juarez Gonzalez MD ROSE MARY (generalized anxiety disorder); Generalized anxiety disorder with panic attacks Discharge Disposition: Home or Self Care 08/26/2024 Travel 08/24/2024 Documentation Only [facility] [address] [facility] [address] [place] [address] Tracey Whitley Advance Care Planning 08/23/2024 11:33 AM LIBRARY TECHNOLOGY INSTRUCTOR - 08/23/2024 4:11 PM LIBRARY TECHNOLOGY INSTRUCTOR Emergency [facility] Emergency Dept [address] [place] [address] Myles Murillo MD Anxiety about health; Anxiety [...] file Legal Sex Female 4:22 AM LIBRARY TECHNOLOGY INSTRUCTOR Gender Identity Not on file Sexual Orientation Not on file Last Filed Vital Signs Vital Sign Reading Time Taken Comments Blood Pressure 120/70 09/09/2024 3:50 PM LIBRARY TECHNOLOGY INSTRUCTOR Pulse 71 09/09/2024 3:50 PM LIBRARY TECHNOLOGY INSTRUCTOR Temperature 36.3 C (97.4 F) 09/09/2024 1:33 PM LIBRARY TECHNOLOGY INSTRUCTOR Respiratory Rate 17 09/09/2024 3:50 PM LIBRARY TECHNOLOGY INSTRUCTOR Oxygen Saturation 98% 09/09/2024 3:50 PM LIBRARY TECHNOLOGY INSTRUCTOR Inhaled Oxygen Concentration - - Weight 80.3 kg (177 lb) 09/09/2024 1:33 PM LIBRARY TECHNOLOGY INSTRUCTOR Height 167.6 cm (5' 6) 09/09/2024 1:33 PM LIBRARY TECHNOLOGY INSTRUCTOR Body Mass Index 28.57 09/09/2024 1:33 PM LIBRARY TECHNOLOGY INSTRUCTOR Plan of Treatment Health Maintenance Due Date [...] 2 VIEWS STAT 09/04/2024 9:47 PM LIBRARY TECHNOLOGY INSTRUCTOR D DIMER QUANTITATIVE STAT 09/04/2024 8:29 PM LIBRARY TECHNOLOGY INSTRUCTOR CBC WITH PLATELETS & DIFFERENTIAL STAT 09/04/2024 7:39 PM LIBRARY TECHNOLOGY INSTRUCTOR MAGNESIUM STAT 09/04/2024 7:39 PM LIBRARY TECHNOLOGY INSTRUCTOR CBC WITH PLATELETS AND DIFFERENTIAL STAT 09/04/2024 7:39 PM LIBRARY TECHNOLOGY INSTRUCTOR BASIC METABOLIC PANEL STAT 09/04/2024 7:39 PM LIBRARY TECHNOLOGY INSTRUCTOR TROPONIN T, HIGH SENSITIVITY STAT 09/04/2024 7:39 PM LIBRARY TECHNOLOGY INSTRUCTOR EKG 12-LEAD, TRACING ONLY STAT 09/04/2024 7:35 PM LIBRARY TECHNOLOGY INSTRUCTOR EKG CARDIAC - HIM SCAN 09/04/2024 12:00 AM LIBRARY TECHNOLOGY INSTRUCTOR EKG CARDIAC - HIM SCAN 09/01/2024 12:00 AM LIBRARY TECHNOLOGY INSTRUCTOR EKG 12-LEAD, TRACING ONLY STAT 08/28/2024 5:30 PM LIBRARY TECHNOLOGY INSTRUCTOR EKG 12-LEAD, TRACING ONLY STAT 08/23/2024 12:09 PM LIBRARY TECHNOLOGY INSTRUCTOR HIV ANTIGEN ANTIBODY COMBO Routine 04/16/2018 HEPATITIS C ANTIBODY Routine 08/18/2014 9:29 AM CDT Screen for STD (sexually transmitted disease) PAP IMAGED THIN LAYER SCREEN Routine 08/18/2014 12:00 AM CDT Routine General Medical Examination At A [facility] Care Facility Papanicolaou Smear Of Cervix With Low Grade Squamous Intraepithelial Lesion (Lgsil) from Last 3 Months or Most Recently Relevant to Health Maintenance Results * XR Chest 2 Views (09/04/2024 9:47 PM LIBRARY TECHNOLOGY INSTRUCTOR) Anatomical Region Laterality Modality Chest Digital Radiogra phy 09/04/2024 9:47 PM LIBRARY TECHNOLOGY INSTRUCTOR Impressions 09/04/2024 10:30 PM LIBRARY TECHNOLOGY INSTRUCTOR IMPRESSION: No evidence of active cardiopulmonary disease. Narrative 09/04/2024 10:30 PM LIBRARY TECHNOLOGY INSTRUCTOR EXAM: CHEST 2 VIEWS LOCATION: [facility] DATE: 09/04/2024 INDICATION: Chest pain. COMPARISON: None. FINDINGS: The lungs are clear. Normal size cardiac silhouette. Procedure Note Khoi Mejia MD - 09/04/2024 EXAM: CHEST 2 VIEWS LOCATION: [facility] DATE: 09/04/2024 INDICATION: Chest pain. COMPARISON: None. FINDINGS: The lungs are clear. Normal size cardiac silhouette. IMPRESSION: No evidence of active cardiopulmonary disease. us Juarez Gonzalez MD IMG DIAGNOSTIC IMAGING ORDERABLES Final Result * D dimer quantitative (09/04/2024 8:29 PM LIBRARY TECHNOLOGY INSTRUCTOR) D-Dimer Quantitative <0.27 0.00 - 0.50 ug/mL FEU 09/04/2024 8:50 PM LIBRARY TECHNOLOGY INSTRUCTOR [facility] Blood BLOOD SPECIMEN / Unknown Venipuncture / Unknown 09/04/2024 8:29 PM LIBRARY TECHNOLOGY INSTRUCTOR 09/04/2024 8:33 PM LIBRARY TECHNOLOGY INSTRUCTOR Narrative [facility] - 09/04/2024 8:50 PM LIBRARY TECHNOLOGY INSTRUCTOR This D-dimer assay is intended for use in conjunction with a clinical pretest probability assessment model to exclude pulmonary embolism (PE) and deep venous thrombosis (DVT) in outpatients suspected of PE or DVT. The cut-off value is 0.50 ug/mL FEU. us Juarez Gonzalez MD LAB - BLOOD ORDERABLES Final Result [facility] [address] Lab (1st floor, no room number) [place] [address], [facility] * CBC with platelets and differential (09/04/2024 7:39 PM LIBRARY TECHNOLOGY INSTRUCTOR) WBC Count 7.5 4.0 - 11.0 10e3/uL 09/04/2024 7:59 PM LIBRARY TECHNOLOGY INSTRUCTOR [facility] RBC Count 4.83 3.80 - 5.20 10e6/uL 09/04/2024 7:59 PM LIBRARY TECHNOLOGY INSTRUCTOR [facility] Hemoglobin 14.0 11.7 - 15.7 g/dL 09/04/2024 7:59 PM LIBRARY TECHNOLOGY INSTRUCTOR [facility] Hematocrit 42.2 35.0 - 47.0 % 09/04/2024 7:59 PM LIBRARY TECHNOLOGY INSTRUCTOR [facility] MCV 87 78 - 100 fL 09/04/2024 7:59 PM LIBRARY TECHNOLOGY INSTRUCTOR [facility] MCH 29.0 26.5 - 33.0 pg 09/04/2024 7:59 PM LIBRARY TECHNOLOGY INSTRUCTOR [facility] MCHC 33.2 31.5 - 36.5 g/dL 09/04/2024 7:59 PM LIBRARY TECHNOLOGY INSTRUCTOR [facility] RDW 12.3 10.0 - 15.0 % 09/04/2024 7:59 PM LIBRARY TECHNOLOGY INSTRUCTOR [facility] Platelet Count 242 150 - 450 10e3/uL 09/04/2024 7:59 PM LIBRARY TECHNOLOGY INSTRUCTOR [facility] % Neutrophils 69 % 09/04/2024 7:59 PM LIBRARY TECHNOLOGY INSTRUCTOR [facility] % Lymphocytes 23 % 09/04/2024 7:59 PM LIBRARY TECHNOLOGY INSTRUCTOR [facility] % Monocytes 7 % 09/04/2024 7:59 PM LIBRARY TECHNOLOGY INSTRUCTOR [facility] % Eosinophils 1 % 09/04/2024 7:59 PM LIBRARY TECHNOLOGY INSTRUCTOR [facility] % Basophils 1 % 09/04/2024 7:59 PM LIBRARY TECHNOLOGY INSTRUCTOR [facility] % Immature Granulocytes 0 % 09/04/2024 7:59 PM LIBRARY TECHNOLOGY INSTRUCTOR [facility] NRBCs per 100 WBC 0 <1 /100 024 7:59 PM LIBRARY TECHNOLOGY INSTRUCTOR [facility] Absolute Neutrophils 5.2 1.6 - 8.3 10e3/uL 09/04/2024 7:59 PM LIBRARY TECHNOLOGY INSTRUCTOR [facility] Absolute Lymphocytes 1.7 0.8 - 5.3 10e3/uL 09/04/2024 7:59 PM LIBRARY TECHNOLOGY INSTRUCTOR [facility] Absolute Monocytes 0.5 0.0 - 1.3 10e3/uL 09/04/2024 7:59 PM LIBRARY TECHNOLOGY INSTRUCTOR [facility] Absolute Eosinophils 0.1 0.0 - 0.7 10e3/uL 09/04/2024 7:59 PM LIBRARY TECHNOLOGY INSTRUCTOR [facility] Absolute Basophils 0.0 0.0 - 0.2 10e3/uL 09/04/2024 7:59 PM LIBRARY TECHNOLOGY INSTRUCTOR [facility] Absolute Immature Granulocytes 0.0 <=0.4 10e3/uL 09/04/2024 7:59 PM LIBRARY TECHNOLOGY INSTRUCTOR LABORATORY Absolute NRBCs 0.0 10e3/uL 09/04/2024 7:59 PM LIBRARY TECHNOLOGY INSTRUCTOR LABORATORY Blood STRUCTURE OF LEFT UPPER LIMB / Unknown Venipuncture / Unknown 09/04/2024 7:39 PM LIBRARY TECHNOLOGY INSTRUCTOR 09/04/2024 7:56 PM LIBRARY TECHNOLOGY INSTRUCTOR us Juarez Gonzalez MD LAB - BLOOD ORDERABLES Final Result LABORATORY [facility] [address] [facility] Lab (1st floor, no room number) [place] [address], [facility] * Troponin T, High Sensitivity (09/04/2024 7:39 PM LIBRARY TECHNOLOGY INSTRUCTOR) [facility] Troponin T, High Sensitivity <6 <=14 ng/L 09/04/2024 8:23 PM LIBRARY TECHNOLOGY INSTRUCTOR [facility] Comment: Either a High Sensitivity [...] Venipuncture / Unknown 09/04/2024 7:39 PM LIBRARY TECHNOLOGY INSTRUCTOR 09/04/2024 7:56 PM LIBRARY TECHNOLOGY INSTRUCTOR Juarez Gonzalez MD LAB - BLOOD ORDERABLES Final Result Performing Organization Address City/[facility]/ZIP Co de Phone Number [facility] [address] Lab (1st floor, no room number) [address] * Magnesium (09/04/2024 7:39 PM LIBRARY TECHNOLOGY INSTRUCTOR) Pathologist [facility] Magnesium 2.2 1.7 - 2.3 mg/dL 09/04/2024 8:31 PM LIBRARY TECHNOLOGY INSTRUCTOR LABORATORY Blood STRUCTURE OF LEFT UPPER LIMB / Unknown Venipuncture / Unknown 09/04/2024 7:39 PM LIBRARY TECHNOLOGY INSTRUCTOR 09/04/2024 7:56 PM LIBRARY TECHNOLOGY INSTRUCTOR Juarez Gonzalez MD LAB - BLOOD ORDERABLES Final Result Performing Organization Address [facility]/ZIP Co de Phone Number [facility] [address] Lab (1st floor, no room number) [address] * (ABNORMAL) Basic metabolic panel (BMP) (09/04/2024 7:39 PM LIBRARY TECHNOLOGY INSTRUCTOR) Sodium 139 135 - 145 mmol/L 09/04/2024 8:23 PM LIBRARY TECHNOLOGY INSTRUCTOR LABORATORY Potassium 3.4 3.4 - 5.3 mmol/L 09/04/2024 8:23 PM LIBRARY TECHNOLOGY INSTRUCTOR LABORATORY Chloride 104 98 - 107 mmol/L 09/04/2024 8:23 PM LIBRARY TECHNOLOGY INSTRUCTOR LABORATORY Carbon Dioxide (CO2) 23 22 - 29 mmol/L 09/04/2024 8:23 PM LIBRARY TECHNOLOGY INSTRUCTOR LABORATORY Anion Gap 12 7 - 15 mmol/L 09/04/2024 8:23 PM LIBRARY TECHNOLOGY INSTRUCTOR LABORATORY Urea Nitrogen 7.2 6.0 - 20.0 mg/dL 09/04/2024 8:23 PM LIBRARY TECHNOLOGY INSTRUCTOR LABORATORY Creatinine 0.72 0.51 - 0.95 mg/dL 09/04/2024 8:23 PM LIBRARY TECHNOLOGY INSTRUCTOR LABORATORY GFR Estimate >90 >60 mL/min/1.7 3m2 09/04/2024 8:23 PM LIBRARY TECHNOLOGY INSTRUCTOR LABORATORY Comment:eGFR calculated us2020 CKD-EPI equation. Calcium 9.6 8.8 - 10.4 mg/dL 09/04/2024 8:23 PM LIBRARY TECHNOLOGY INSTRUCTOR LABORATORY Comment:Reference intervals for this test were updated on 05/05/2024 to reflect our healthy population more accurately. There may be differences in the flagging of prior results with similar values performed with this method. Those prior results can be interpreted in the context of the updated reference intervals. Glucose 112(H) 70 - 99 mg/dL 09/04/2024 8:23 PM LIBRARY TECHNOLOGY INSTRUCTOR LABORATORY Blood STRUCTURE OF LEFT UPPER LIMB / Unknown Venipuncture / Unknown 09/04/2024 7:39 PM LIBRARY TECHNOLOGY INSTRUCTOR 09/04/2024 7:56 PM LIBRARY TECHNOLOGY INSTRUCTOR us Juarez Gonzalez MD LAB - BLOOD ORDERABLES Final Result [facility] Acute Care Lab [address] [facility] Lab (1st floor, no room number) [place] [address], [facility] * EKG 12 lead (09/04/2024 7:35 PM LIBRARY TECHNOLOGY INSTRUCTOR) Only the most recent of3 resultswithin the time period is included. Systolic Blood Pressure mmHg RADIOLOGY RESULTS Diastolic Blood Pressure mmHg RADIOLOGY RESULTS Ventricular Rate 76 BPM RAD IOLOGY RESULTS Atrial Rate 76 BPM RADIOLOG Y RESULTS WI Interval 124 ms RADIOLOG Y RESULTS QRS Duration 86 ms RADIOLO GY RESULTS QT 362 ms RADIOLOGY RESULTS QTc 407 ms RADIOLOGY RESULTS P [place] 45 degrees RADIOLOGY RESULTS R AXIS 81 degrees RADIOLOGY RESULTS T [place] -17 degrees RADIOLOGY RESULTS Interpretation ECG Sinus [...] Confirmed by - EMERGENCY ROOM, PHYSICIAN ([id number]), magazine editor ILEANA KYLE ([id number]) on 09/07/2024 7:08:49 AM RADIOLOGY RESULTS 09/04/2024 7:35 PM LIBRARY TECHNOLOGY INSTRUCTOR 09/07/2024 7:08 AM LIBRARY TECHNOLOGY INSTRUCTOR us Juarez Gonzalez MD ECG ORDERABLES Edited Result - Final RADIOLOGY RESULTS * EKG Cardiac - HIM Scan (09/04/2024 12:00 AM LIBRARY TECHNOLOGY INSTRUCTOR) Only the most recent of2 resultswithin the time period is included. 09/04/2024 us Provider Outside ECG ORDERABLES Final Result * HIV Antigen Antibody Combo (04/16/2018) HIV Antigen Antibody Combo negative Blood specimen (specimen) us Patient Reported LAB - BLOOD ORDERABLES Final Re sult * Hepatitis C antibody (08/18/2014 9:29 AM CDT) Hepatitis C Antibody Negative NEG [facility] Blood specimen (specimen) 08/18/2014 9:29 AM CDT 08/18/2014 9:32 AM CDT us Wiliam Lagunas PA-C LAB - BLOOD ORDERABL ES Final Result Performing Organization Address City/[facility]/ZIP Co de Phone Number [facility] [address] [place], [place] [phone] [place] [address] * PAP imaged thin layer, screen (08/18/2014 12:00 AM CDT) PAP NIRMALA Zaldivar Report Patient Name: TURNER TIDWELL MR#: [id number] Specimen #: [id number] Collected: 08/18/2014 Received: 08/19/2014 Reported: 08/24/2014 12:44 [...] Vieyra ( ASCP) Processed and screened at [facility] CLINICAL HISTORY: LMP: 08/09/2014 Previous normal pap Date of Last Pap: 04/10/2012 Previous abnormal pap: lgsil, Papanicolaou Test Limitations: Cervical cytology is a screening test with limited sensitivity; regular screening is critical for cancer prevention; Pap tests are primarily effective for the diagnosis/preventi on of squamous cell carcinoma, not adenocarcinomas or other cancers. TESTING LAB LOCATION: [address] [id number] COLLECTION SITE: Client: [facility] Location: [facility] (R) COPATH Cytologic material (specimen) 08/18/2014 08/19/2014 11:48 AM CDT us Wiliam Lagunas PAJames LAB - [facility] L SPECIMEN Final Result COPATH from Last 3 Months or Most Recently Relevant to Health Maintenance Care Teams Educational Assistant Relationship Specialty Start Date End Date [facility] [address] [place] [place] [address] [facility] - General 08/23/24
--- OUTSIDE RECORDS SUMMARY | 2024-09-16 00:40 | XMS_ITS | Encounter Summary ---
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 [place] [address] PCP - General 08/23/24 documented as of this encounter
--- OUTSIDE RECORDS SUMMARY | 2024-09-16 00:40 | XMS_ITS | Encounter Summary ---
Author Organization [employer] Address [address] [place] [address] Care Team Providers Care Comic Artist Name Role Phone Gladys Summers Primary Care Pr ovider Reason for Visit * Reason Comments Advance Care Planning Encounter Details Date Type Department Care Team (Latest Contact Info) Description 09/01/2024 Documentation Only [facility] [address] [facility] [address] [place] [address] Tracey Whitley [facility] [address] [place] [address] Advance Care Planning Social History Tobacco Use [...] on file Legal Sex Female 4:22 AM ASSESSMENT TECHNICIAN Gender Identity Not on file Sexual Orientation Not on file documented as of this encounter Plan of Treatment Not on file documented as of this encounter Visit Diagnoses Not on filedocumented in this encounter Care Teams Comic Artist Relationship Specialty Start Date End Date Gladys Summers [address] [facility] [place] [address] PCP - General 08/23/24 documented as of this encounter
--- OUTSIDE RECORDS SUMMARY | 2024-09-16 00:40 | XMS_ITS | Encounter Summary ---
Author Organization [employer] Address [address], [place] [address] Care Team Providers Care Production Controller Name Role Phone Margot Huang PA-C Primary Care Provider [phone] Encounter Details Date Type Department Care Team (Late Contact Info) Description 10/15/2017 Correspondence External to External, [place] [address] NOTICE OF NON COVERED SERVICE Social History [...] (Late Contact Info) Description 09/16/2024 9:00 AM SPEEDBOAT DRIVER Telemedicine [facility] Partial Hospitalization Program [address] [place] [address] Rachael Rousseau MD [address] [place] [address] 09/16/2024 10:00 AM SPEEDBOAT DRIVER Telemedicine [facility] Partial Hospitalization Program [address] [place] [address] Rachael Rousseau MD [address] [place] [address] 09/29/2024 1:00 PM SPEEDBOAT DRIVER Telemedicine [facility] [address] [facility] [place] [address] Rosa Maria Phillips MD [address] [place], [place] [address] documented as of this encounter Visit Diagnoses Not on filedocumented in this encounter Additional Health Concerns Infection Onset Date Last Indicated Resolved Time R/O COVID19 05/20/2020 05/20/2020 05/27/2020 3:18 AM CDT documented as of this encounter Care Teams Production Controller Relationship Specialty Start Date End Date Margot Huang, PAKeenanC [address] [place] [address] PCP - General Physician Chemical Laboratory Technician 11/13/16 documented as of this encounter
--- OUTSIDE RECORDS SUMMARY | 2024-09-16 00:40 | XMS_ITS | Encounter Summary ---
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 Telemedicine [facility] Partial Hospitalization Program [address] [place] [address] Rachael Rousseau MD [address] [place] [address] 09/16/2024 10:00 AM GAS PLANT REPAIRER Telemedicine [facility] Partial Hospitalization Program [address] [place] [address] Rachael Rousseau MD [address] [place] [address] 09/29/2024 1:00 PM GAS PLANT REPAIRER Telemedicine [facility] [address] [address] Rosa Maria Phillips MD [address] [place], [place] [address] documented as of this encounter Visit Diagnoses Not on filedocumented in this encounter Additional Health Concerns Infection Onset Date Last Indicated Resolved Time R/O COVID19 05/20/2020 05/20/2020 05/27/2020 3:18 AM CDT documented as of this encounter Care Teams Fraternity House Cook Relationship Specialty Start Date End Date Margot Huang PAKeenanC [address] [place] [address] PCP - General Physician Sales Enablement Lead 11/13/16 documented as of this encounter
--- OUTSIDE RECORDS SUMMARY | 2024-09-16 00:40 | XMS_ITS | Encounter Summary ---
Author Organization [facility] Address [address] [place] [address] Care Team Providers Care Autocad Electrical Designer Name Role Phone Clinic, [facility] [place] Primary Care Pr ovider Reason for Referral * CV Cardio consult (Routine: Next available opening) - Pending Review Specialty Diagnoses / Procedures Referred By Contact Referred To Contact Cardiovascular Disease Diagnoses Palpitations Hypokalemia Juarez Gonzalez MD [facility] [address] [facility] [address] [address] Phone: tel: fax: Referral ID Status Reason Start Date Expiration Date V isits Requested Visits Authorized [id number] Pending Review 09/04/2024 09/04/2025 1 1 Question Answer Reason for Consult: General Cardiology Patient Scheduling Instructions: [facility] will call you to coordinate your care as prescribed by your provider. If you don't hear from a business office representative within 2 business days, please call [phone]. Comments Please be aware that coverage of these services is subject to the terms and limitations of your health insurance plan. Call member services at your health plan with any benefit or coverage questions. [facility] will call you to coordinate your care as prescribed by your provider. If you don't hear from a business office representative within 2 business days, please call [phone]. N RESOURCES COMPENSATION ANALYST Reason for Visit * Reason Comments Shortness of Breath Tachycardia Encounter Details Date Type Department Care Team (Late st Contact Info) Description 09/04/2024 7:39 PM HUMAN RESOURCES COMPENSATION ANALYST - 09/04/2024 11:48 PM HUMAN RESOURCES COMPENSATION ANALYST Emergency [facility] [address] [place] [address] Juarez Gonzalez MD [facility] [address] [place] [address] Palpitations; Hypokalemia; Anxiety Discharge Disposition: Home or [...] on file Legal Sex Female 4:22 AM HUMAN RESOURCES COMPENSATION ANALYST Gender Identity Not on file Sexual Orientation Not on file documented as of this encounter Last Filed Vital Signs Vital Sign Reading Time Taken Comments Blood Pressure 107/74 09/04/2024 11:45 PM HUMAN RESOURCES COMPENSATION ANALYST Pulse 64 09/04/2024 11:45 PM HUMAN RESOURCES COMPENSATION ANALYST Temperature 37.1 C (98.8 F) 09/04/2024 11:45 PM HUMAN RESOURCES COMPENSATION ANALYST Respiratory Rate 16 09/04/2024 11:45 PM HUMAN RESOURCES COMPENSATION ANALYST Oxygen Saturation 98% 09/04/2024 11:45 PM HUMAN RESOURCES COMPENSATION ANALYST Inhaled Oxygen Concentration - - Weight 79.9 kg (176 lb 2.4 oz) 09/04/2024 7:23 P M HUMAN RESOURCES COMPENSATION ANALYST Height 167.6 cm (5' 6) 09/04/2024 7:23 PM HUMAN RESOURCES COMPENSATION ANALYST Body Mass Index 28.43 09/04/2024 7:23 PM HUMAN RESOURCES COMPENSATION ANALYST documented in this encounter Discharge Instructions * Discharge Instructions* Juarez Gonzalez MD - 09/04/2024 11:04 PM HUMAN RESOURCES COMPENSATION ANALYST Return to ER immediately if you develop: worsening symptoms, Fever > 101, persistent nausea or vomiting OR you have any other concerns about your health. N RESOURCES COMPENSATION ANALYST documented in this encounter Medications at Time [...] tablet Take 1 tablet by mouth daily potassium chloride (KLOR-CON) 20 MEQ packet Take 20 mEq by mouth 2 times daily for 3 days. 6 packet 09/04/2024 09/07/2024 documented as of this encounter ED Notes * Jillian Travis RN - 09/04/2024 11:47 PM CST Pt discharged home by chief writer. Pt looks well. Given AVS and all VSS. Pt left amb with good gait to exit. Agreeable to plan of care. N RESOURCES COMPENSATION ANALYST * Juarez Gonzalez MD - 09/04/2024 7:45 [...] Hydroxyzine Propranolol Rizatriptan Surgical History section D&C [place] teeth Physical Exam Patient Vitals for the [...] Documentation None Medical Decision Making / Diagnosis [facility] Diagnoses: None MIPS None MDM Kacey Hines [...] provider's statements tome. Juarez Gonzalez MD 09/04/24 9560 N RESOURCES COMPENSATION ANALYST * Jillian Tuttle RN - 09/04/2024 7:26 [...] WDL WDL Cognitive/Neuro/Behavioral WDL Cognitive/Neuro/Behavioral WDL WDL N RESOURCES COMPENSATION ANALYST documented in this encounter Plan of Treatment Scheduled Referrals Name Type Priority Associated Diagnoses Orde r Schedule Adult Cardiology Eval Denture Contour Wire Specialist Referral Referral Routine: Next available opening Palpitations Hypokalemia Expected: 09/04/2024 (Approximate), Expires: 09/04/2025 documented as of this encounter Procedures Procedure Name Priority Date/Time Associated Diagnosis Comments XR CHEST 2 VIEWS STAT 09/04/2024 9:47 PM HUMAN RESOURCES COMPENSATION ANALYST D DIMER QUANTITATIVE STAT 09/04/2024 8:29 PM HUMAN RESOURCES COMPENSATION ANALYST CBC WITH PLATELETS AND DIFFERENTIAL STAT 09/04/2024 7:39 PM HUMAN RESOURCES COMPENSATION ANALYST TROPONIN T, HIGH SENSITIVITY STAT 09/04/2024 7:39 PM HUMAN RESOURCES COMPENSATION ANALYST CBC WITH PLATELETS & DIFFERENTIAL STAT 09/04/2024 7:39 PM HUMAN RESOURCES COMPENSATION ANALYST MAGNESIUM STAT 09/04/2024 7:39 PM HUMAN RESOURCES COMPENSATION ANALYST BASIC METABOLIC PANEL STAT 09/04/2024 7:39 PM HUMAN RESOURCES COMPENSATION ANALYST EKG 12-LEAD, TRACING ONLY STAT 09/04/2024 7:35 PM HUMAN RESOURCES COMPENSATION ANALYST documented in this encounter Results * XR Chest 2 Views (09/04/2024 9:47 PM HUMAN RESOURCES COMPENSATION ANALYST) Anatomical Region Laterality Modality Chest Digital Radiogra phy 09/04/2024 9:47 PM HUMAN RESOURCES COMPENSATION ANALYST Impressions 09/04/2024 10:30 PM HUMAN RESOURCES COMPENSATION ANALYST IMPRESSION: No evidence of active cardiopulmonary disease. Narrative 09/04/2024 10:30 PM HUMAN RESOURCES COMPENSATION ANALYST EXAM: CHEST 2 VIEWS LOCATION: [facility] DATE: 09/04/2024 INDICATION: Chest pain. COMPARISON: None. FINDINGS: The lungs are clear. Normal size cardiac silhouette. Procedure Note Khoi Mejia MD - 09/04/2024 EXAM: CHEST 2 VIEWS LOCATION: [facility] DATE: 09/04/2024 INDICATION: Chest pain. COMPARISON: None. FINDINGS: The lungs are clear. Normal size cardiac silhouette. IMPRESSION: No evidence of active cardiopulmonary disease. us Juarez Gonzalez MD IMG DIAGNOSTIC IMAGING ORDERABLES Final Result * D dimer quantitative (09/04/2024 8:29 PM HUMAN RESOURCES COMPENSATION ANALYST) D-Dimer Quantitative <0.27 0.00 - 0.50 ug/mL FEU 09/04/2024 8:50 PM HUMAN RESOURCES COMPENSATION ANALYST [facility] Blood BLOOD SPECIMEN / Unknown Venipuncture / Unknown 09/04/2024 8:29 PM HUMAN RESOURCES COMPENSATION ANALYST 09/04/2024 8:33 PM HUMAN RESOURCES COMPENSATION ANALYST Narrative [facility] - 09/04/2024 8:50 PM HUMAN RESOURCES COMPENSATION ANALYST This D-dimer assay is intended for use in conjunction with a clinical pretest probability assessment model to exclude pulmonary embolism (PE) and deep venous thrombosis (DVT) in outpatients suspected of PE or DVT. The cut-off value is 0.50 ug/mL FEU. Juarez Gonzalez MD LAB - BLOOD ORDERABLES Final Result LABORATORY [facility] [address] Bl[address] [facility] Lab (1st floor, no room number) [address] * Magnesium (09/04/2024 7:39 PM HUMAN RESOURCES COMPENSATION ANALYST) Magnesium 2.2 1.7 - 2.3 mg/dL 09/04/2024 8:31 PM HUMAN RESOURCES COMPENSATION ANALYST [facility] Blood STRUCTURE OF LEFT UPPER LIMB / Unknown Venipuncture / Unknown 09/04/2024 7:39 PM HUMAN RESOURCES COMPENSATION ANALYST 09/04/2024 7:56 PM HUMAN RESOURCES COMPENSATION ANALYST Juarez Gonzalez MD LAB - BLOOD ORDERABLES Final Result Performing Organization Address City/[facility]/ZIP Co de Phone Number LABORATORY [facility] [address] Lab (1st floor, no room number) [address] * CBC with platelets and differential (09/04/2024 7:39 PM HUMAN RESOURCES COMPENSATION ANALYST) WBC Count 7.5 4.0 - 11.0 10e3/uL 09/04/2024 7:59 PM HUMAN RESOURCES COMPENSATION ANALYST [facility] RBC Count 4.83 3.80 - 5.20 10e6/uL 09/04/2024 7:59 PM HUMAN RESOURCES COMPENSATION ANALYST [facility] Hemoglobin 14.0 11.7 - 15.7 g/dL 09/04/2024 7:59 PM HUMAN RESOURCES COMPENSATION ANALYST [facility] Hematocrit 42.2 35.0 - 47.0 % 09/04/2024 7:59 PM HUMAN RESOURCES COMPENSATION ANALYST [facility] MCV 87 78 - 100 fL 09/04/2024 7:59 PM HUMAN RESOURCES COMPENSATION ANALYST [facility] MCH 29.0 26.5 - 33.0 pg 09/04/2024 7:59 PM HUMAN RESOURCES COMPENSATION ANALYST [facility] MCHC 33.2 31.5 - 36.5 g/dL 09/04/2024 7:59 PM HUMAN RESOURCES COMPENSATION ANALYST [facility] RDW 12.3 10.0 - 15.0 % 09/04/2024 7:59 PM HUMAN RESOURCES COMPENSATION ANALYST [facility] Platelet Count 242 150 - 450 10e3/uL 09/04/2024 7:59 PM HUMAN RESOURCES COMPENSATION ANALYST [facility] % Neutrophils 69 % 09/04/2024 7:59 PM HUMAN RESOURCES COMPENSATION ANALYST [facility] % Lymphocytes 23 % 09/04/2024 7:59 PM HUMAN RESOURCES COMPENSATION ANALYST [facility] % Monocytes 7 % 09/04/2024 7:59 PM HUMAN RESOURCES COMPENSATION ANALYST [facility] % Eosinophils 1 % 09/04/2024 7:59 PM HUMAN RESOURCES COMPENSATION ANALYST [facility] % Basophils 1 % 09/04/2024 7:59 PM HUMAN RESOURCES COMPENSATION ANALYST [facility] % Immature Granulocytes 0 % 09/04/2024 7:59 PM HUMAN RESOURCES COMPENSATION ANALYST [facility] NRBCs per 100 WBC 0 <1 /100 024 7:59 PM HUMAN RESOURCES COMPENSATION ANALYST [facility] Absolute Neutrophils 5.2 1.6 - 8.3 10e3/uL 09/04/2024 7:59 PM HUMAN RESOURCES COMPENSATION ANALYST [facility] Absolute Lymphocytes 1.7 0.8 - 5.3 10e3/uL 09/04/2024 7:59 PM HUMAN RESOURCES COMPENSATION ANALYST [facility] Absolute Monocytes 0.5 0.0 - 1.3 10e3/uL 09/04/2024 7:59 PM HUMAN RESOURCES COMPENSATION ANALYST [facility] Absolute Eosinophils 0.1 0.0 - 0.7 10e3/uL 09/04/2024 7:59 PM HUMAN RESOURCES COMPENSATION ANALYST [facility] Absolute Basophils 0.0 0.0 - 0.2 10e3/uL 09/04/2024 7:59 PM HUMAN RESOURCES COMPENSATION ANALYST [facility] Absolute Immature Granulocytes 0.0 <=0.4 10e3/uL 09/04/2024 7:59 PM HUMAN RESOURCES COMPENSATION ANALYST [facility] Absolute NRBCs 0.0 10e3/uL 09/04/2024 7:59 PM HUMAN RESOURCES COMPENSATION ANALYST [facility] Blood STRUCTURE OF LEFT UPPER LIMB / Unknown Venipuncture / Unknown 09/04/2024 7:39 PM HUMAN RESOURCES COMPENSATION ANALYST 09/04/2024 7:56 PM HUMAN RESOURCES COMPENSATION ANALYST us Juarez Gonzalez MD LAB - BLOOD ORDERABLES Final Result [facility] [address] Lab (1st floor, no room number) [place] [address] * (ABNORMAL) Basic metabolic panel (BMP) (09/04/2024 7:39 PM HUMAN RESOURCES COMPENSATION ANALYST) Sodium 139 135 - 145 mmol/L 09/04/2024 8:23 PM HUMAN RESOURCES COMPENSATION ANALYST LABORATORY Potassium 3.4 3.4 - 5.3 mmol/L 09/04/2024 8:23 PM HUMAN RESOURCES COMPENSATION ANALYST LABORATORY Chloride 104 98 - 107 mmol/L 09/04/2024 8:23 PM HUMAN RESOURCES COMPENSATION ANALYST LABORATORY Carbon Dioxide (CO2) 23 22 - 29 mmol/L 09/04/2024 8:23 PM HUMAN RESOURCES COMPENSATION ANALYST LABORATORY Anion Gap 12 7 - 15 mmol/L 09/04/2024 8:23 PM HUMAN RESOURCES COMPENSATION ANALYST LABORATORY Urea Nitrogen 7.2 6.0 - 20.0 mg/dL 09/04/2024 8:23 PM HUMAN RESOURCES COMPENSATION ANALYST LABORATORY Creatinine 0.72 0.51 - 0.95 mg/dL 09/04/2024 8:23 PM HUMAN RESOURCES COMPENSATION ANALYST LABORATORY GFR Estimate >90 >60 mL/min/1.7 3m2 09/04/2024 8:23 PM HUMAN RESOURCES COMPENSATION ANALYST LABORATORY Comment:eGFR calculated usin g 2020 CKD-EPI equation. Calcium 9.6 8.8 - 10.4 mg/dL 09/04/2024 8:23 PM [facility] Comment:Reference intervals for this test were updated on 05/05/2024 to reflect our healthy population more accurately. There may be differences in the flagging of prior results with similar values performed with this method. Those prior results can be interpreted in the context of the updated reference intervals. Glucose 112(H) 70 - 99 mg/dL 09/04/2024 8:23 PM HUMAN RESOURCES COMPENSATION ANALYST LABORATORY Blood STRUCTURE OF LEFT UPPER LIMB / Unknown Venipuncture / Unknown 09/04/2024 7:39 PM HUMAN RESOURCES COMPENSATION ANALYST 09/04/2024 7:56 PM HUMAN RESOURCES COMPENSATION ANALYST us Juarez Gonzalez MD LAB - BLOOD ORDERABLES Final Result LABORATORY [facility] Lab [address] Lab (1st floor, no room number) [place] [address], [facility] * Troponin T, High Sensitivity (09/04/2024 7:39 PM HUMAN RESOURCES COMPENSATION ANALYST) Pathologist [facility] Troponin T, High Sensitivity <6 <=14 ng/L 09/04/2024 8:23 PM HUMAN RESOURCES COMPENSATION ANALYST LABORATORY Comment: Either a High Sensitivity Troponin [...] Unknown Venipuncture / Unknown 09/04/2024 7:39 PM HUMAN RESOURCES COMPENSATION ANALYST 09/04/2024 7:56 PM HUMAN RESOURCES COMPENSATION ANALYST us Juarez Gonzalez MD LAB - BLOOD ORDERABLES Final Result [facility] Acute Care Lab [address] [facility] Lab (1st floor, no room number) [place] [address], [facility] * EKG 12 lead (09/04/2024 7:35 PM HUMAN RESOURCES COMPENSATION ANALYST) Pathologist [facility] Systolic Blood Pressure mmHg RADIOLOGY RESULTS Diastolic Blood Pressure mmHg RADIOLOGY RESULTS Ventricular Rate 76 BPM RAD IOLOGY RESULTS Atrial Rate 76 BPM RADIOLOG Y RESULTS DE Interval 124 ms RADIOLOG Y RESULTS QRS Duration 86 ms RADIOLO GY RESULTS QT 362 ms RADIOLOGY RESULTS QTc 407 ms RADIOLOGY RESULTS P [place] 45 degrees RADIOLOGY RESULTS R AXIS 81 degrees RADIOLOGY RESULTS T [place] -17 degrees RADIOLOGY RESULTS Interpretation ECG Sinus [...] Confirmed by - EMERGENCY ROOM, PHYSICIAN ([id number]), editorial clerk ILEANA KYLE ([id number]) on 09/07/2024 7:08:49 AM RADIOLOGY RESULTS 09/04/2024 7:35 PM HUMAN RESOURCES COMPENSATION ANALYST 09/07/2024 7:08 AM HUMAN RESOURCES COMPENSATION ANALYST us Juarez Gonzalez MD ECG ORDERABLES Edited [...] 1 dose $New Bag 09/04/2024 8:29 PM HUMAN RESOURCES COMPENSATION ANALYST 1,000 mLs 1000 mL/hr potassium chloride sri ER (KLOR-CON M20) CR tablet 40 mEq 40 mEq, Oral, ONCE, On Sat09/04/24 at 2029, For 1 dose, DO NOT CRUSH $Given 09/04/2024 8:43 PM HUMAN RESOURCES COMPENSATION ANALYST 40 mEq documented in this encounter Active and Recently Administered Medications Times are shown in HUMAN RESOURCES COMPENSATION ANALYST. Scheduled Medication Order 09/02/2024 09/03/2024 09/04/2024 lactated [...] SANCHO) documented in this encounter Care Teams Autocad Electrical Designer Relationship Specialty Start Date End Date Clinic, [facility]ys Gar [address] [place] [address] PCP - General 08/23/24 documented as of this encounter
--- OUTSIDE RECORDS SUMMARY | 2024-09-16 00:40 | XMS_ITS | Encounter Summary ---
Author Organization [facility] Address [address], [place] [address] Care Team Providers Care Real Estate Leasing Agent Name Role Phone Margot Huang PA-C Primary Care Provider [phone] Reason for Visit * Reason Comments Follow-up, NOS Entered automaticall y based on patient selection in Applimation. Encounter Details Date Type Department Care Team (Late Contact Info) Description 07/28/2024 4:30 PM CDT E-Visit [facility] [address] [address] Steve Stoll PA-C [address] [place] [address] Chief Comp: Follow-up, NOS Social History Tobacco [...] (Late Contact Info) Description 09/16/2024 9:00 AM [facility] Telemedicine [facility] Program [address] [place] [address] Rcahael Rousseau MD [address] [place] [address] 09/16/2024 10:00 AM CLINICAL LABORATORY SCIENTIST Telemedicine [facility] Partial Hospitalization Program [address] [place] [address] Rachael Rousseau MD [address] [place] [address] 09/29/2024 1:00 PM CLINICAL LABORATORY SCIENTIST Telemedicine [facility] [address] [place], [place] [address] Rosa Maria Phillips MD [address] [place], [place] [address] documented as of this encounter Visit Diagnoses Not on filedocumented in this encounter Care Teams Real Estate Leasing Agent Relationship Specialty Start Date End Date Margot Huang PA-C [address] [place] [address] PCP - General Physician Plant Supervisor 11/13/16 documented as of this encounter
--- OUTSIDE RECORDS SUMMARY | 2024-09-16 00:40 | XMS_ITS | Encounter Summary ---
Author Organization [employer] Address [address] [place] [address] Care Team Providers Care Operator Coating Furnace Name Role Phone Margot Huang PA-C Primary Care Provider [phone] Reason for Visit * Reason Comments CELLULITIS Encounter Details Date Type Department Care Team (Late st Contact Info) Description 07/15/2024 Nurse Triage Careline [address] [place], [place] [address] Leobardo Lloyd X CELLULITIS Social History Tobacco [...] cellulitis Protocols used: Cellulitis on Antibiotic Follow-up [id number] * Leobardo Lloyd - 07/15/2024 6:06 PM CDT Verified patient identity using three identifiers: Yes Caller's relationship to patient: Self, Do you have a provider/clinic where you are seen for this? ELROY/Dejon/Kari/Colton Are you calling about a /ACUTE CARE CERTIFIED NURSING ASSISTANT related concern? No Symptoms Describe the reason [...] st Contact Info) Description 09/16/2024 9:00 AM BELLY DUMP DRIVER Telemedicine [facility] Partial Hospitalization Program [address] [place] [address] Racheal Rousseau MD [address] [place] [address] 09/16/2024 10:00 AM BELLY DUMP DRIVER Telemedicine [facility] Partial Hospitalization Program [address] [place] [address] Rachael Rousseau MD [address] [place] [address] 09/29/2024 1:00 PM BELLY DUMP DRIVER Telemedicine [facility] [address] [place], [place] [id number] Rosa Maria Phillips MD [address] [place], [place] [address] documented as of this encounter Visit Diagnoses Not on filedocumented in this encounter Care Teams Operator Coating Furnace Relationship Specialty Start Date End Date Margot Huang PA-C [address] [place] [address] PCP - General Physician Cutting Table Operator First 11/13/16 documented as of this encounter
--- OUTSIDE RECORDS SUMMARY | 2024-09-16 00:40 | XMS_ITS | Encounter Summary ---
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 [place] [address] PCP - General 08/23/24 documented as of this encounter
--- OUTSIDE RECORDS SUMMARY | 2024-09-16 00:40 | XMS_ITS | Encounter Summary ---
Author Organization [facility] Address [address] [address] Care Team Providers Care Barrel Rifler Broach Name Role Phone Margot Huang PA-C Primary Care Provider [phone] Reason for Visit * Procedure/Equipment (Routine) - Incomplete Specialty Diagnoses / Procedures Referred By Sukhi t Referred To Contact Diagnoses Right foot pain Procedures XR Foot Rt 3+ Views XR Foot Rt AP/MO/Lat Steve Stoll PA-C [address] [place] [address] Referral ID Status Reason Start Date Expiration Date V isits Requested Visits Authorized [id number] Incomplete 07/23/2024 10/22/2025 1 1 Encounter Details Date Type Department Care Team (Late st Contact Info) Description 07/23/2024 12:20 PM CDT Ancillary Procedure [facility] [address] Radiology [address] [place] [phone] Steve Stoll PA-C [address] [place] [address] Right foot pain Social History Tobacco Use [...] st Contact Info) Description 09/16/2024 9:00 AM ONLINE FACILITATOR Telemedicine [facility] Partial Hospitalization Program [address] [place] [address] Rachael Rousseau MD [address] [place] [address] 09/16/2024 10:00 AM ONLINE FACILITATOR Telemedicine [facility] Hospitalization [facility] [address] [place] [address] Rachael Rousseau MD [address] [place] [address] 09/29/2024 1:00 PM ONLINE FACILITATOR Telemedicine [facility] [address] [place] [address] Rosa Maria Phillips MD [address] [place] [address] documented as of this encounter Procedures Procedure [...] is no dislocation or significantdegenerative change. Steve SWARTZ GD documented in this encounter Visit Diagnoses Diagnosis Right foot pain Pain in limb documented in this encounter Care Teams Barrel Rifler Broach Relationship Specialty Start Date End Date Margot Huang PA-C [address] [place] [address] PCP - General Physician Special Investigator 11/13/16 documented as of this encounter
--- OUTSIDE RECORDS SUMMARY | 2024-09-16 00:40 | XMS_ITS | Encounter Summary ---
Author Organization [place] Address [address] [place] [address] Care Team Providers Care Transmission Engineer Name Role Phone Clinic, [facility] Primary Care Pr ovider Reason for Visit * Reason Comments Depression Anxiety Encounter Details Date Type Department Care Team ([facility] st Contact Info) Description 09/09/2024 1:48 PM UNIT DIRECTOR - 09/09/2024 3:52 PM UN[address] Emergency [facility] Emergency Dept [address] [place] [phone] Danish Marmolejo MD [facility] [address] [facility] [address] [id number] Anxiety; Other insomnia Discharge Disposition: Home or Self Care Social [...] on file Legal Sex Female 4:22 AM UNIT DIRECTOR Gender Identity Not on file Sexual Orientation Not on file documented as of this encounter Last Filed Vital Signs Vital Sign Reading Time Taken Comments Blood Pressure 120/70 09/09/2024 3:50 PM UNIT DIRECTOR Pulse 71 09/09/2024 3:50 PM UNIT DIRECTOR Temperature 36.3 C (97.4 F) 09/09/2024 1:33 PM UNIT DIRECTOR Respiratory Rate 17 09/09/2024 3:50 PM UNIT DIRECTOR Oxygen Saturation 98% 09/09/2024 3:50 PM UNIT DIRECTOR Inhaled Oxygen Concentration - - Weight 80.3 kg (177 lb) 09/09/2024 1:33 PM UNIT DIRECTOR Height 167.6 cm (5' 6) 09/09/2024 1:33 PM UNIT DIRECTOR Body Mass Index 28.57 09/09/2024 1:33 PM UNIT DIRECTOR documented in this encounter Discharge Instructions * Attachments The following attachments cannot be sent through Care Everywhere. * Generalized Anxiety Disorder (Cameroonian) * Insomnia (Cameroonian) documented in this encounter Medications at Time of Discharge ALPRAZolam (XANAX) 0.5 MG tablet Take 1 tablet (0.5 mg) by mouth 3 times daily as needed for anxiety. 9 tablet 09/09/2024 traZODone (DESYREL) 50 MG tablet Take 1-2 tablets (50-100 mg) by mouth at bedtime. 30 tablet 09/09/2024 ferrous sulfate (FEROSUL) 325 (65 Fe) MG [...] as of this encounter Consult Notes * Bryson Judge, CHILDCARE DIRECTOR - 09/09/2024 2:50 PM CSTAssociated Order(s): DIAGNOSTIC EVALUATION CENTER (DEC) ASSESSMENT ORDER Diagnostic Evaluation Consultation Crisis Assessment Patient Name: Kacey Hines Age: [age] year old Legal Sex: female Gender Identity: female Pronouns: Race: White Ethnicity: Not or Language: Cameroonian Patient was assessed: Virtual: eEye Crisis Assessment Start Date: 09/09/24 Crisis Assessment Start Time: 1449 Crisis Assessment Stop Time: 1513 Patient location: [facility] EMERGENCY DEPT Referral Data and Chief Complaint Kacey Hines presents to the ED by self. Patient is presenting to the ED for the following concerns: Anxiety, Depression. Factors that make the mental health crisis life threatening or complex are: Pt has severe panic attacks and anxiety with OCD. Pt has no health insurance and could not keep her new outpatient psychiatry appointment. Pt presenting in the ER today with panic attacks, anxietyand passive suicidal ideations.. Informed Consent and Assessment [...] available. : done Patient response to interventions: acceptance expressed, verbalizes understanding Coping skills were attempted to reduce the crisis: practicing yoga, deep breathing exercise, meditation, affirmations, going for a walk History of the Crisis Pt is a 34 year old White female with history of panic attacks, anxiety, depression and OCD. Pt hasbeen previously seen at the ER for similar presentation and the last visit was on 09/04. She continues to endorse having severe anxiety, constant OCD thoughts, SOB, hard time sleeping and could not ca lm myself down. Pt reported she was able to see her new outpatient therapist 1x but could not keep her new outpatient psychiatry appointment due to having no health insurance. Pt shared she was in the process of applying for [facility] insurance. Pt connected to the [facility] Crisis team and is supposed to start with therapy tomorrow. Pt identified recent loss of her employment and having obssessive thoughts about her health issues and cellulitis as triggers leading to her current mental health crisis. Pt is seeing her primary doctor and is being prescribed Lexapro and Hydroxyzine. She is onweek 5 of the Lexapro and believes these increased symptoms could be a side effect of the medication. She was on Lexapro in the past back in February but discontinued it. She was told the medication should level off after the 6th week so she wants to continue until then to see if she can make it past this stage of side effects. Pt denies having suicidal or homicidal ideations, access to firearms, history of SIB and previous suicide attempt. She denies having auditory or visual hallucinations. Brief Psychosocial History Family: Lives with Significant Other, Children yes Support System: Parent(s), Sibling(s), Significant Other Employment Status: unemployed Source of Income: none Financial Environmental Concerns: unemployed, insurance, none Current Hobbies: reading, writing/journaling/blogging, social media/computer activities, music, television/movies/videos, exercise/fitness, meditation, family functions, group/social activities Barriers in Personal Life: behavioral concerns, financial concerns, mental health concerns, lack ofmotivation, emotional concerns Significant Clinical History Current Anxiety Symptoms: racing thoughts, obsessions/compulsions, excessive worry, shortness of breath or racing heart, anxious Current Depression/Trauma: crying or feels like crying, helplessness, sadness, sense of doom Current Somatic Symptoms: excessive worry, shortness of breath or racing heart, anxious, racing thoughts Current Psychosis/Thought Disturbance: distractability Current Eating Symptoms: loss of appetite Chemical Use History: Alcohol: None Benzodiazepines: None Opiates: None Cocaine: None Marijuana: None Other Use: None Past diagnosis: Anxiety Disorder, Depression Family history: Anxiety Disorder, Bipolar Disorder, Depression Past treatment: Individual therapy, Primary Care, Psychiatric Medication Management Details of most recent treatment: Pt doesn't currently have health insurance but is supposed to begin seeing someone through [facility]. She is supposed to start tomorrow. Other relevant history: Pt shared her parents [...] Yes Collateral information name, relationship, phone number: Geoffrey Kilpatrick (boyfriend) [phone] What happened today: She has not been able to sleep much in the past several days. She is up late at night or early in the morning pacing and restless. What is different about patient's functioning: Beth reported Pt has been more depressed, difficulty sleeping and eating lately. She has been having increased anxiety, panic attacks, and OCD sympotms are increased. She keeps returning to the ER but is not getting the relief that she needs. Has patient made comments about wanting to kill themselves/others: no If d/c is recommended, can they take part in safety/aftercare planning: yes Risk Assessment Weber Suicide Severity Rating Scale Full Clinical Version: Suicidal Ideation Q6 Suicide Behavior (Lifetime): no Weber Suicide Severity Rating Scale Recent: Suicidal Ideation (Recent) Q1 Wished to be (Past Month): no Q2 Suicidal Thoughts (Past Month): no Level of Risk per Screen: no risks indicated Suicidal Behavior (Recent) Actual Attempt (Past 3 Months): No Total Number of Actual Attempts (Past 3 Months): 0 Has subject engaged in non-suicidal self-injurious behavior? (Past 3 Months): No Interrupted Attempts (Past 3 Months): No Total Number of Interrupted Attempts (Past 3 Months): 0 Aborted or Self-Interrupted Attempt (Past 3 Months): No Total Number of Aborted or Self-Interrupted Attempts (Past 3 Months): 0 Preparatory Acts or Behavior (Past 3 Months): No Total Number of Preparatory Acts (Past 3 Months): 0 Environmental or Psychosocial Events: work or task [...] Attempt to Hurt Others: no Current presentation: (Cooperative, alert, and oriented x5.) Is the patient engaging in sexually inappropriate behavior? Mental Status Exam Affect: Appropriate Appearance: Appropriate [...] Behavior: Normal Thought Content: Clear Thought Form: Goal Directed Medication Psychotropic medications: Medication Orders - Psychiatric (From admission, onward) Start Dose/Rate Route Frequency Ordered Stop 09/09/24 0000 traZODone (DESYREL) 50 MG tablet 50-100 mg Oral AT BEDTIME 09/09/24 1543 09/09/24 0000 ALPRAZolam (XANAX) 0.5 MG tablet 0.5 mg Oral 3 TIMES DAILY PRN 09/09/24 1543 Current Care Team Patient Care Team: Clinic, [...] Primary Problem This Admission Active Hospital Problems Anxiety F41.9 Clinical Summary and Substantiation of Recommendations Pt is a 34 year old White female with history of panic attacks, anxiety, depression and OCD. Pt hasbeen previously seen at the ER for similar presentation and the last visit was on 09/04. She continues to endorse having severe anxiety, constant OCD thoughts, SOB, hard time sleeping and could not ca lm myself down. Pt reported she was able to see her new outpatient therapist 1x but could not keep her new outpatient psychiatry appointment due to having no health insurance. Pt shared she was in the process of applying for [employer] insurance. Pt connected to the [facility] Crisis team and is supposed to start with therapy tomorrow. Pt identified recent loss of her employment and having obssessive thoughts about her health issues and cellulitis as triggers leading to her current mental health crisis. Pt is seeing her primary doctor and is being prescribed Lexapro and Hydroxyzine. Pt deniesSI, HI, NSSI, or AVHs. Pt expresses a need to get sleep and has asked the ER provider if they can give her something to help resolve this issue. She will follow up with PCP and therapy appointment tomorrow through [facility]. Pt does not require acute stabilization and is recommended for outpatient services. Patient coping skills attempted to reduce the crisis: practicing yoga, deep breathing exercise, meditation, affirmations, going for a walk Disposition Recommended disposition: Individual Therapy, Medication Management Reviewed case and recommendations with attending provider. Attending Name: Consulted with provider Danish Marmolejo Attending concurs with disposition: yes Patient and/or validated legal guardian concurs with disposition: yes Final disposition: discharge Legal status on admission: Voluntary/Patient has signed consent for treatment Assessment Details Total duration spent with the patient: 23 min CPT code(s) utilized: Non-Billable PHILL Krishnan, Psychotherapist [facility] - Triage & Transition Services Callback: [phone] DIRECTOR documented in this encounter ED Notes * Joyce Santo RN - 09/09/2024 3:51 PM CST All patient questions have been answered, no further questions at this time. Discharge paperwork was gone over with patient. Patient verbalizes understanding of discharge teaching, medications, when to return and the importance of follow up. Patient verbalizes feeling safe returning home at this time. DIRECTOR * Danish Marmolejo MD - 09/09/2024 2:09 PM CST Emergency Department Note History of Present Illness Chief Complaint Depression and Anxiety HPI Kacey Hines is a 34 year old female with a history of ROSE MARY, bipolar affective disorder, PTSD, and depressive disorder who presents with worsening depression and anxiety. She denies recent triggers. She adds she cannot get out of flight or flight. She notes when she moves her heart rate spikes.She adds she cannot sit down anymore. She is safe at home. No cough, cold, or rhinorrhea. She vapesnicotine. She adds she feels like she is on meth at all times. She denies active suicidal ideationbut is afraid if she does not feel better she does not get out of this.She has chest pain and shortness of breath. She takes Lexapro and Hydroxyzine. She notes these medications have not been helping her recently. She took Ativan today which helped her for a short period approximately 3.5 hours ago. Independent Historian None Review of External Notes I reviewed her ED visit on 04 September for palpitations hypokalemia and anxiety. Past Medical History Medical History and Problem List Anxiety Bipolar affective disorder Cellulitis of right lower extremity Depressive disorder Gallstones ROSE MARY Gestational hypertension Hypertension Migraines Medications Duloxetine Escitalopram oxalate Hydroxyzine HCl Lorazepam Rizatriptan Surgical History section Dilation and curettage Policy Intern surgery [place] teeth Physical Exam Patient Vitals for the past 24 hrs: BP Temp Temp src Pulse Resp SpO2 Height Weight 09/09/24 1550 120/70 -- -- 71 17 98 % -- -- 09/09/24 1536 -- -- -- -- -- 99 % -- -- 09/09/24 1521 -- -- -- -- -- 100 % -- -- 09/09/24 1506 -- -- -- -- -- 98 % -- -- 09/09/24 1451 -- -- -- -- -- 92 % -- -- 09/09/24 1436 -- -- -- -- -- 94 % -- -- 09/09/24 1430 129/79 -- -- 75 -- 98 % -- -- 09/09/24 1415 133/82 -- -- 89 -- 98 % -- -- 09/09/24 1408 -- -- -- -- -- 98 % -- -- 09/09/24 1406 (!) 136/91 -- -- 89 -- -- -- -- 09/09/24 1333 (!) 140/91 97.4 ??F (36.3 ??C) Temporal 108 18 99 % 1.676 m (5' 6) 80.3 kg (177 lb) Physical Exam Constitutional: Vital signs reviewed as above General: Alert HEENT: Moist mucous membranes Eyes: Conjunctiva normal. Neck: Normal range of motion Cardiovascular: Tachycardic rate, Regular rhythm and normal heart sounds. No MRG Pulmonary/Chest: Effort normal and breath sounds normal. No respiratory distress. Patient has no wheezes. Patient has no rales. Abdominal: Soft. Positive bowel sounds. No MRG. Musculoskeletal/Extremities: Anterior chest wall tenderness to palpation. Endo: No pitting edema Neurological: Alert, no focal deficits. Skin: Skin is warm and dry. Psychiatric: Anxious. Admits to thoughts of self harm. Diagnostics Lab Results Labs Ordered and Resulted from Time of ED Arrival to Time of ED Departure - No data to display Imaging No orders to display Independent Interpretation None ED Course Medications Administered Medications diazepam (VALIUM) tablet 5 mg (5 mg Oral $Given 09/09/24 1444) Procedures Procedures Discussion of Management None ED Course ED Course as of 09/09/24 1805 SatSep 09, 2024 8808 I obtained the patient's history and examined as noted above. Additional Documentation None Medical Decision Making / Diagnosis [facility] Diagnoses: None MIPS None MDM Kacey Hines is a 34 year old female who presents emergency department with concerns over continued anxiety heart racing and continued fighter flight mode. She has had her heart worked up extensively. She does think this is greatly related to anxiety as well as insomnia. She does not have any plan to harm herself. She was agreeable to meet with the DEC psychiatric technician. I did give her a dose of Valium here and she was feeling better. She has no physical complaints otherwise. [facility] psychiatric technician met with her and she has an appointment therapist tomorrow. She would like to go home. I did offer her trazodone to try for sleep. She is agreeable to this. She did ask for a small amount of Xanax for home Donnie did agree to give her a few tablets but noted that further prescription of this nature would haveto come from her primary care doctor or mental health team. She understands this. She was feeling better. She plans to keep her appoint for tomorrow. She will follow-up if symptoms worsen. Disposition The patient was discharged. Diagnosis ICD-10-CM 1. Anxiety F41.9 2. Other insomnia G47.09 Discharge Medications Discharge Medication List as of 09/09/2024 3:48 PM START taking these medications Details ALPRAZolam (XANAX) 0.5 MG tablet Take 1 tablet (0.5 mg) by mouth 3 times daily as needed for anxiety., Disp-9 tablet, R-0, E-Prescribe traZODone (DESYREL) 50 MG tablet Take 1-2 tablets (50-100 mg) by mouth at bedtime., Disp-30 tablet,R-0, E-Prescribe Scribe Disclosure: I, Sosa Tang, am serving as a scribe at 2:16 PM on 09/09/2024 to document services personally performed by Danish Marmolejo MD based on my observations and the provider's statements to me. Danish Marmolejo MD 09/09/24 1805 DIRECTOR * Sarah Sotomayor, RN - 09/09/2024 1:29 PM CST Pt presents for evaluation of mental health and anxiety. Was seen in [place] ED a few nights agoand was sent home. Pt states she is struggling, can't sleep, can't get her heart rate down, is in a constant panic attack, can't get her adrenaline down and it is hard to breath. Has been going on for the last 5-6 weeks. Was started on lexapro 5 weeks ago, but symptoms. Has reached put to [facility], who is setting up a therapist to reach out to pt. Denies drug or alcohol use. Has passive SI, denies HI. DIRECTOR documented in this encounter Plan of Treatment Not on file documented as of this encounter Visit Diagnoses Diagnosis Anxiety Anxiety state, unspecified Other insomnia documented in this encounter Administered Medications Inactive Administered Medications - up to 3 most recent administrations Medication Order MAR Action Action Date Dose Rate Site diazepam (VALIUM) tablet 5 mg 5 mg, Oral, ONCE, On Sat09/09/24 at 1435, For 1 dose $Given 09/09/2024 2:44 PM UNIT DIRECTOR 5 mg documented in this encounter Active and Recently Administered Medications Times are shown in UNIT DIRECTOR. Scheduled Medication Order 09/07/2024 09/08/2024 09/09/2024 diazepam (VALIUM) tablet 5 mg (COMPLETED) 5 mg, Oral, ONCE, On Sat09/09/24 at 1435, For 1 dose 1444 ($Given - Provi liudmila: Harris Hernández Son, RN) documented in this encounter Care Teams Transmission Engineer Relationship Specialty Start Date End Date Clinic, [facility] [address] [place], [place] [id number] PCP - General 08/23/24 documented as of this encounter
--- OUTSIDE RECORDS SUMMARY | 2024-09-16 00:41 | XMS_ITS | Encounter Summary ---
Author Organization [place] Address [address] [place] [address] Care Team Providers Care Wood Patternmaker Apprentice Name Role Phone Gladys Summers Primary Care [...] on file Legal Sex Female 4:22 AM DATA COORDINATOR Gender Identity Not on file Sexual Orientation Not on file documented as of this encounter Plan of Treatment Not on file documented as of this encounter Visit Diagnoses Not on filedocumented in this encounter Care Teams Wood Patternmaker Apprentice Relationship Specialty Start Date End Date Gladys Summers [address] [place] [address] PCP - General 08/23/24 documented as of this encounter
--- OUTSIDE RECORDS SUMMARY | 2024-09-16 00:41 | XMS_ITS | Encounter Summary ---
Author Organization [place] Address [address] [place] [address] Care Team Providers Care Machine Stone Polisher Apprentice Name Role Phone Gladys Summers Primary [...] on file Legal Sex Female 4:22 AM LEATHER SCRAPER Gender Identity Not on file Sexual Orientation Not on file documented as of this encounter Plan of Treatment Not on file documented as of this encounter Visit Diagnoses Not on filedocumented in this encounter Care Teams Machine Stone Polisher Apprentice Relationship Specialty Start Date End Date Gladys Summers [address] [place] [place] [address] PCP - General 08/23/24 documented as of this encounter
--- OUTSIDE RECORDS SUMMARY | 2024-09-16 00:41 | XMS_ITS | Encounter Summary ---
Author Organization [facility] Address [address] [place] [address] Care Team Providers Care Harnessmaker Apprentice Name Role Phone Clinic, [facility] Primary Care Pr ovider Reason for Visit * Reason Comments Panic Attack Shortness of Breath Encounter Details Date Type Department Care Team (Late st Contact Info) Description 08/23/2024 11:33 AM YARD SWITCH OPERATOR - 08/23/2024 4:11 PM YARD SWITCH OPERATOR Emergency [facility] Emergency Dept [address] [place] [address] Myles Murillo MD Anxiety about health; Anxiety [...] on file Legal Sex Female 4:22 AM YARD SWITCH OPERATOR Gender Identity Not on file Sexual Orientation Not on file documented as of this encounter Last Filed Vital Signs Vital Sign Reading Time Taken Comments Blood Pressure 130/88 08/23/2024 4:10 PM YARD SWITCH OPERATOR Pulse 90 08/23/2024 4:10 PM YARD SWITCH OPERATOR Temperature 36.7 C (98.1 F) 08/23/2024 11:30 AM YARD SWITCH OPERATOR Respiratory Rate 18 08/23/2024 4:10 PM YARD SWITCH OPERATOR Oxygen Saturation 100% 08/23/2024 4:10 PM YARD SWITCH OPERATOR Inhaled Oxygen Concentration - - Weight 81.3 kg (179 lb 3.7 oz) 08/23/2024 11:30 AM YARD SWITCH OPERATOR Height 167.6 cm (5' 6) 08/23/2024 11:30 AM YARD SWITCH OPERATOR Body Mass Index 28.93 08/23/2024 11:30 AM YARD SWITCH OPERATOR documented in this encounter Discharge Instructions * Discharge Instructions* Myles Murillo MD - 08/23/2024 3:35 PM YARD SWITCH OPERATOR Aftercare Plan Follow up with your primary care provider: 09/08/14 4:15PM Rosa Maria Phillips MD [facility] [address] [facility] [address] > Schedule appointment for psychiatric medication [facility] [address] [place] [address] [email or web address] > Keep your therapy appointment tomorrow Saturday08/24/24 4:00PM Swati Murray MSW, [facility] [address] [place] [address] SEE ADDITIONAL PAGE FOR YOUR PERSONALIZED SAFETY PLAN If I am feeling unsafe or I am in a crisis, I will: Contact my established care providers Call the [facility] 988 Go to the nearest emergency room Call 911 [facility] has a mental health crisis team you can call 13/05: [facility] [phone] Crisis Text Line Text 474139 You will be connected with a trained live crisis counselor to provide support. Por espanol, texto TERRIE a [id number] o texto a 442-AYUDAME en [facility] Mental Health Warm Line Peer to peer support Saturday thru Saturday, 12 pm to 10 pm [phone] or Text Support to [address]444 National [place] [employer] Mental Illness (ALO) 086.470.1492 or 1.888.ALO.HELPS Mental Health Apps My3 https://my3app.org/ VirtualHopeBox https://Ebyline/apps/uuyhyvf-exop-vhw/ Additional Information Today you were seen by a licensed mental health professional through Triage and Transition services, [facility] ([facility]) for a crisis assessment in the Emergency Department at [facility]. It is recommended that you follow up with your established providers (psychiatrist, mental health therapist, and/or primary care doctor - as relevant) as soon as possible. Coordinators from [facility] will be calling you in the next 24-48 hours to ensure that you have the resources you need. You can also contact [facility] coordinators directly at [phone]. You may have been scheduled for or offered an appointment with a mental health provider. [facility] maintains an extensive network of licensed [facility] health providers to connect patients with [...] you enjoy. If you feel worse, contact 7-474-IBRKUWA ( ), or call 911, or your [...] if there is anything that worries you. SWITCH OPERATOR SWITCH OPERATOR SWITCH OPERATOR SWITCH OPERATOR SWITCH OPERATOR SWITCH OPERATOR * Attachments The following attachments cannot be sent through Care Everywhere. * Anxiety: Treatment Options: Video (Mozambican) documented in this encounter Medications at Time [...] Annemarie Morales - 08/23/2024 4:11 PM CST Certified Hyperbaric Technologist faxed DEC Consult, ANDREW, and facesheet to [facility] per saud Fofana ask. Certified Hyperbaric Technologist called and updated the county on referral made. [phone] JORGE Cristobal/ [phone] SWITCH OPERATOR documented in this encounter Consult Notes * Ct Maldonado LPC, LAD - 08/23/2024 2:00 PM CST Diagnostic Evaluation Consultation Crisis Assessment Patient Name: Kacey Hines Age: [age] year old Legal Sex: female Gender Identity: female Pronouns: she/her Race: White Ethnicity: Not or Language: Mozambican Patient was assessed: In person Crisis Assessment Start Date: 08/23/24 Crisis Assessment Start Time: 1428 Crisis Assessment Stop Time: 1502 (plus [phone]) Patient location: [facility] ED05 Referral Data and Chief [...] pt's boyfriend. Pt's boyfriend was present at [facility] during the interview, per pt's request, and [...] part in safety/aftercare planning: yes Risk Assessment [place] Suicide Severity Rating Scale Full Clinical Version: Suicidal Ideation Q1 Wish to be (Lifetime): No Q2 Non-Specific Active Suicidal Thoughts (Lifetime): No Q6 Suicide Behavior (Lifetime): no Suicidal Behavior (Lifetime) Actual Attempt (Lifetime): No Has subject engaged in non-suicidal self-injurious behavior? (Lifetime): No Interrupted Attempts (Lifetime): No Aborted or Self-Interrupted Attempt (Lifetime): No Preparatory Acts or Behavior (Lifetime): No [place] Suicide Severity Rating Scale Recent: Suicidal Ideation [...] for psychiatric medication management and psychotherapy though [facility] while she is uninsured. Pt signed ANDREW for referral to follow up with [facility] crisis stabilization services. Disposition Recommended disposition: Individual Therapy, Medication Management, Other. please comment ([facility]) Reviewed case and recommendations with attending provider. Attending Name: Myles Murillo MD Attending concurs with disposition: yes Patient and/or validated legal guardian concurs with disposition: yes Final disposition: discharge Legal status on admission: Voluntary/Patient has signed consent for treatment Assessment Details Total duration spent with the patient: 34 min CPT code(s) utilized: 74442 - Psychotherapy for Crisis - 60 (30-74*) min CT MALDONADO M.Ed., [facility], [facility] Licensed Mental Health Professional Triage and Transition Services - SEP [phone] Maldonado LPCC, [facility] at 08/23/2024 7:15 PM YARD SWITCH OPERATOR documented in this encounter ED Notes * Katie Rodriguez RN - 08/23/2024 12:02 PM CST at bedside SWITCH OPERATOR * Myles Murillo MD - 08/23/2024 11:56 [...] SECTION; Surgeon: Caroline Escamilla MD; Location: L+D [facility]OOVER OPERATOR SURGERY D&C 11/2017 wisdom teeth Physical Exam [...] rhythm with sinus arrhythmia Rate 70 bpm. OH interval 118 ms. QRS duration 80 ms. [...] / Diagnosis CMS Diagnoses: None MIPS None [facility] Kacey Hines is a 33 year [...] to me. Myles Murillo MD 08/25/24 1031 SWITCH OPERATOR * Katie Rodriguez RN - 08/23/2024 11:50 [...] in place. DEC ordered to see pt. SWITCH OPERATOR * Zehra Win RN - 08/23/2024 11:31 [...] is different. Pt states she has stressors. SWITCH OPERATOR documented in this encounter Plan of Treatment Not on file documented as of this encounter Procedures Procedure Name Priority Date/Time Associated Diagnosis Comments EKG 12-LEAD, TRACING ONLY STAT 08/23/2024 12:09 PM YARD SWITCH OPERATOR documented in this encounter Results * EKG 12-lead, tracing only (08/23/2024 12:09 PM YARD SWITCH OPERATOR) Systolic Blood Pressure mmHg RADIOLOGY RESULTS Diastolic Blood Pressure mmHg RADIOLOGY RESULTS Ventricular Rate 70 BPM RAD IOLOGY RESULTS Atrial Rate 70 BPM RADIOLOG Y RESULTS OH Interval 118 ms RADIOLOG Y RESULTS QRS Duration 80 ms RADIOLO GY RESULTS QT 398 ms RADIOLOGY RESULTS QTc 429 ms RADIOLOGY RESULTS P [place] 31 degrees RADIOLOGY RESULTS R AXIS 65 degrees RADIOLOGY RESULTS T [place] 36 degrees RADIOLOGY RESULTS Interpretation ECG Sinus rhythm with sinus arrhythmia Normal ECG No previous ECGs available Confirmed by - EMERGENCY ROOM, PHYSICIAN ([id number]), research editor ILEANA KYLE ([id number]) on 08/24/2024 7:10:40 AM RADIOLOGY RESULTS 08/23/2024 12:0 9 PM YARD SWITCH OPERATOR 08/24/2024 7:10 AM YARD SWITCH OPERATOR Myles Murillo MD ECG ORDERABLES Edited Result [...] For 1 dose $Given 08/23/2024 11:59 AM YARD SWITCH OPERATOR 1 mg documented in this encounter Active and Recently Administered Medications Due to Daylight Saving Time, this section may contain times in both CDT and YARD SWITCH OPERATOR. Scheduled Medication Order 08/21/2024 08/22/2024 08/23/2024 LORazepam (ATIVAN) tablet 1 mg (COMPLETED) 1 mg, Oral, ONCE, On 08/23/24 at 1200, For 1 dose 1159 ($Given - Provi liudmila: Katie Rodriguez RN) documented in this encounter Care Teams Harnessmaker Apprentice Relationship Specialty Start Date End Date Clinic, [facility] [address] [place] [address] PCP - General 08/23/24 documented as of this encounter
--- OUTSIDE RECORDS SUMMARY | 2024-09-16 00:41 | XMS_ITS | Encounter Summary ---
Author Organization [place] Address [address] [place] [address] Care Team Providers Care Poolroom Table Attendant Name Role Phone Eileen Vaughn PA-C Primary Care Provid er [facility] Primary Care Pro vider [facility] Primary Care Pr ovider Encounter Details Date Type Department Care Team (Late st Contact Info) Description 07/31/2013 [facility] [address] [address] Michael [place] Social History Tobacco Use Types Packs/Day Years Used Date Smoking Tobacco: Every Day Cigarettes 0.5 1 Smokeless Tobacco: Never Alcohol Use Standard Drinks/Week Comments No 0 (1 standard drink = 0.6 oz pur e alcohol) Comments No Sex and Gender Information Value Date Recorded Sex Assigned at Not on file Legal Sex Female 4:22 AM WATER MAINTENANCE SUPERVISOR Gender Identity Not on file Sexual Orientation Not on file documented as of this encounter Plan of Treatment Not on file documented as of this encounter Visit Diagnoses Not on filedocumented in this encounter Care Teams Poolroom Table Attendant Relationship Specialty Start Date End Date Eileen Vaughn PA-C [address] [place] [address] [place] [address] PCP - General Family Practice 12/07/10 08/08/23 [facility] [address] [place] [address] PCP - General 08/09/23 08/22/24 Clinic, [facility] [address] [place] [address] PCP - General 08/23/24 documented as of this encounter
--- OUTSIDE RECORDS SUMMARY | 2024-09-16 00:41 | XMS_ITS | Encounter Summary ---
Author Organization [facility] Address [address] [place] [address] Care Team Providers Care Cath Laboratory Technician Name Role Phone Clinic, [facility] Primary Care Pr ovider Encounter Details Date Type Department Care Team (Late st Contact Info) Description 08/27/2024 Telephone [facility] Services - Behavioral Service Line [address] [place] [phone] Caroline Peters Social History Tobacco Use [...] on file Legal Sex Female 4:22 AM MEDICAL SONOGRAPHER Gender Identity Not on file Sexual Orientation Not on file documented as of this encounter Miscellaneous Notes * Telephone Encounter - Caroline Peters - 08/27/2024 9:05 AM CST Left a voice mail for patient in regard to mental health outpatient scheduling assistance and to call back to possibly reschedule appointments due to insurance. CAL SONOGRAPHER documented in this encounter Plan of Treatment Not on file documented as of this encounter Visit Diagnoses Not on filedocumented in this encounter Care Teams Cath Laboratory Technician Relationship Specialty Start Date End Date Clinic, [facility] [address] [place] [address] PCP - General 08/23/24 documented as of this encounter
--- OUTSIDE RECORDS SUMMARY | 2024-09-16 00:41 | XMS_ITS | Encounter Summary ---
Author Organization [place] Address [address] [place] [address] Care Team Providers Care Research Anthropologist Name Role Phone [facility] Primary Care Pr ovider Reason for Visit * Reason Comments Advance Care Planning Encounter Details Date Type Department Care Team (Latest Contact Info) Description 08/24/2024 Documentation Only [facility] [address] [facility] [address] [place] [address] Tracey Whitley [facility] [address] [address] [place] [address] Advance Care Planning Social History Tobacco Use [...] on file Legal Sex Female 4:22 AM CAREGIVER ASSISTED LIVING Gender Identity Not on file Sexual Orientation Not on file documented as of this encounter Plan of Treatment Not on file documented as of this encounter Visit Diagnoses Not on filedocumented in this encounter Care Teams Research Anthropologist Relationship Specialty Start Date End Date [facility] [address] [facility] [place] [address] PCP - General 08/23/24 documented as of this encounter
--- OUTSIDE RECORDS SUMMARY | 2024-09-16 00:41 | XMS_ITS | Encounter Summary ---
Author Organization [facility] Address [address] [place] [address] Care Team Providers Care Blankbook Stitching Machine Operator Name Role Phone Clinic, [facility] Primary Care Pr ovider Reason for Visit * Reason Comments Anxiety Encounter Details Date Type Department Care Team ([facility] st Contact Info) Description 08/28/2024 3:22 PM JAVASCRIPT SOFTWARE ENGINEER - 08/28/2024 6:57 PM JAVASCRIPT SOFTWARE ENGINEER Emergency [facility] Emergency Dept [address] [place] [address] [phone] Yvon Mack MD [address] [place] [phone] Generalized anxiety disorder with panic attacks Discharge [...] on file Legal Sex Female 4:22 AM JAVASCRIPT SOFTWARE ENGINEER Gender Identity Not on file Sexual Orientation Not on file documented as of this encounter Last Filed Vital Signs Vital Sign Reading Time Taken Comments Blood Pressure 126/83 08/28/2024 6:52 PM JAVASCRIPT SOFTWARE ENGINEER Pulse 76 08/28/2024 6:52 PM JAVASCRIPT SOFTWARE ENGINEER Temperature 36.9 C (98.5 F) 08/28/2024 3:26 PM JAVASCRIPT SOFTWARE ENGINEER Respiratory Rate 18 08/28/2024 3:26 PM JAVASCRIPT SOFTWARE ENGINEER Oxygen Saturation 99% 08/28/2024 6:53 PM JAVASCRIPT SOFTWARE ENGINEER Inhaled Oxygen Concentration - - Weight 80.3 kg (177 lb) 08/28/2024 3:26 PM JAVASCRIPT SOFTWARE ENGINEER Height 167.6 cm (5' 6) 08/28/2024 3:26 PM JAVASCRIPT SOFTWARE ENGINEER Body Mass Index 28.57 08/28/2024 3:26 PM JAVASCRIPT SOFTWARE ENGINEER documented in this encounter Discharge Instructions * Discharge Instructions* Chaim Mckinney S, DIRT BIKE RACER - 08/28/2024 6:42 PM JAVASCRIPT SOFTWARE ENGINEER Quality Assurance Monitor Body encourage Pt to take her medications consistently as prescribed and keep all of her scheduled appointments with her outpatient service providers. Quality Assurance Monitor Body recommended Pt to continue follow up with her new current outpatient therapy service to improve coping skills. Quality Assurance Monitor Body recommended Pt to engage in new outpatient psychiatry for medication management as well as IOP Day treatment. However, Ptshared she has no health insurance as she was applying for [employer] insurance. DEC coordinator will contact Pt within next 1 or 2 business days to ensure coordination of care and provide assistance with appointments. [facility] specializing OCD Treatment Virtual support group available [facility] [place] invites anyone in the local community to attend a virtual Parent and Caregiver Support Group for those who have a loved one struggling with OCD or anxiety. Meets the third Saturday of each month, 5 to 6 pm. Please RSVP to [email or web address] if you plan to attend. [email or web address] [phone] [address] [facility], [address] [place] [address] Below is a list of FREE Mental Health Options in the [facility]: [facility] ([facility] [place]) Serves those in emotional crisis with 24-hour, ldqhf-xmm-m-week crisis counseling, assessment, referral, and medication management. Suicidal: [phone] Consultation: [phone] [place] [address], 13/05 [facility] [phone] Serves those in need of free outpatient mental health care Hours: Mon, Sat, Fri 1-3pm; Sat- 6:30-8:30pm [facility] [address] [place] [address] SCRIPT SOFTWARE ENGINEER documented in this encounter Medications at [...] Pronouns: Race: White Ethnicity: Not or Language: Greek Patient was assessed: Virtual: [employer] Crisis Assessment Start Date: 08/28/24 Crisis Assessment Start Time: 1735 Crisis Assessment Stop Time: 1811 Patient location: [facility] Referral Data and Chief Complaint [...] was in the process of applying for [facility] insurance. Pt reported she was prescribed with [...] information name, relationship, phone number: Beth Gibson [phone] What happened today: Beth reported Pt was [...] planning: yes Additional collateral information: Risk Assessment [place] Suicide Severity Rating Scale Full Clinical Version: [...] No Preparatory Acts or Behavior (Lifetime): No [place] Suicide Severity Rating Scale Recent: Suicidal Ideation [...] was in the process of applying for [facility] insurance. Pt reported she was prescribed with [...] the patient: 36 min CPT code(s) utilized: 86191 - Psychotherapy for Crisis - 60 (30-74*) min PHILL Linares, Psychotherapist DEC - Triage & Transition Services Callback: [phone] SCRIPT SOFTWARE ENGINEER documented in this encounter ED Notes [...] Atenolol Lorazepam Rizatriptan Surgical History C section Language Instructor surgery [place] tooth removal Physical Exam Patient Vitals for [...] Pressure Ventricular Rate 64 Atrial Rate 64 AR Interval 130 QRS Duration 80 QT 430 QTc 443 P [place] 33 R AXIS 69 T [place] 38 Interpretation ECG Sinus rhythm No significant [...] statements to me. Yvon Mack MD 08/28/242242 SCRIPT SOFTWARE ENGINEER * Kaitlin Goldberg RN - 08/28/2024 3:44 PM CST Pt searched with security purse locked up pt in street clothes SCRIPT SOFTWARE ENGINEER * Kaitlin Goldberg RN - 08/28/2024 3:27 PM CST Pt arrives via [facility] with feelings of being over whelmed [...] WDL WDL Cognitive/Neuro/Behavioral WDL Cognitive/Neuro/Behavioral WDL WDL [place] Coma Scale Best Eye Response 4-->(E4) spontaneous Best Motor Response 6-->(M6) obeys commands Best Verbal Response 5-->(V5) oriented [place] Coma Scale Score 15 SCRIPT SOFTWARE ENGINEER * Joyce Santo RN - 08/28/2024 3:22 PM CST Bed: [facility] Expected date: Expected time: Means of arrival: Comments: Haiephraim Peres SCRIPT SOFTWARE ENGINEER documented in this encounter Plan of Treatment Not on file documented as of this encounter Procedures Procedure Name Priority Date/Time Associated Diagnosis Comments EKG 12-LEAD, TRACING ONLY STAT 08/28/2024 5:30 PM JAVASCRIPT SOFTWARE ENGINEER documented in this encounter Results * EKG 12-lead, tracing only (08/28/2024 5:30 PM JAVASCRIPT SOFTWARE ENGINEER) Systolic Blood Pressure mmHg RADIOLOGY RESULTS Diastolic Blood Pressure mmHg RADIOLOGY RESULTS Ventricular Rate 64 BPM RAD IOLOGY RESULTS Atrial Rate 64 BPM RADIOLOG Y RESULTS AR Interval 130 ms RADIOLOG Y RESULTS QRS Duration 80 ms RADIOLO GY RESULTS QT 430 ms RADIOLOGY RESULTS QTc 443 ms RADIOLOGY RESULTS P [place] 33 degrees RADIOLOGY RESULTS R AXIS 69 degrees RADIOLOGY RESULTS T [place] 38 degrees RADIOLOGY RESULTS Interpretation ECG Sinus rhythm Normal ECG When compared with ECG of 23-Aug-2024 12:09, No significant change was found Confirmed by - EMERGENCY ROOM, PHYSICIAN ([id number]), photograph editor ILEANA KYLE ([id number]) on 08/31/2024 7:21:29 AM RADIOLOGY RESULTS 08/28/2024 5:30 PM JAVASCRIPT SOFTWARE ENGINEER 08/31/2024 7:21 AM JAVASCRIPT SOFTWARE ENGINEER us Yvon Mack MD ECG ORDERABLES Edited Result - Final RADIOLOGY RESULTS documented in this encounter Visit Diagnoses Diagnosis Generalized anxiety disorder with panic attacks documented in this encounter Care Teams Blankbook Stitching Machine Operator Relationship Specialty Start Date End Date Clinic, [facility] [address] [place] [address] PCP - General 08/23/24 documented as of this encounter
--- OUTSIDE RECORDS SUMMARY | 2024-09-16 00:41 | XMS_ITS | Encounter Summary ---
Author Organization [facility] Address [address] [place] [id number] Care Team Providers Care Almond Blancher Hand Name Role Phone Clinic, [facility] Primary [facility] Pr ovider Reason for Visit * Reason Comments Anxiety Encounter Details Date Type Department Care Team ([facility] st Contact Info) Description 08/26/2024 7:06 PM [employer] - 08/26/2024 11:00 PM [employer] Emergency [facility] Emergency Dept [address] [place] [address] Juarez Gonzalez MD [facility] [facility] [address] [facility] [address] [place], [place] [id number] ROSE MARY (generalized anxiety disorder); Generalized anxiety [...] on file Legal Sex Female 4:22 AM [employer] Gender Identity Not on file Sexual Orientation Not on file documented as of this encounter Last Filed Vital Signs Vital Sign Reading Time Taken Comments Blood Pressure 130/87 08/26/2024 7:04 PM [employer] Pulse 94 08/26/2024 7:04 PM [employer] Temperature 37 C (98.6 F) 08/26/2024 7:04 PM [employer] Respiratory Rate 18 08/26/2024 7:04 PM [employer] Oxygen Saturation 100% 08/26/2024 7:04 PM [employer] [employer] [facility] Inhaled Oxygen Concentration - - Weight 77.4 kg (170 lb 10.2 oz) 08/26/2024 7:04 PM [employer] [facility] Height - - Body Mass Index 27.54 08/23/2024 11:30 AM [employer] documented in this encounter Discharge Instructions * Discharge Instructions* Steve Tang P - 08/26/2024 10:19 PM [employer] Scheduled Appointment: Date: , 08/27/2024 Time: 12:00 pm - 1:00 pm Provider: Nikia CARRION PA-C Location: [place] [address] Type: Telepsychiatry Patient Instructions: Please fill New Patient Form by using following link. All forms need to be completed 24 hours priorto the appointment date/time by going to [email or web address] Please call us on [phone] 24 hours prior to your scheduled appointment to confirm that you are able to attend. We will provi de you information about how to log into video call software when you call. It is your responsibility to contact your insurance company directly to verify coverage, eligibility, payment, and benefit information for any appointments or referrals listed above. [facility] maintains an extensive network of licensed behavioral [...] of FREE Mental Health Options in the [facility] Area: [facility] ([facility]) Serves those in emotional crisis with 24-hour, essqf-egv-c-week crisis counseling, assessment, referral, and medication management. Suicidal: [phone] Consultation: [phone] [place] [address] 13/05 [facility] [phone] Serves those in need of free outpatient mental health care Hours: Sat, Sat, Sat 1-3pm; Sat- 6:30-8:30pm [facility] [address] [place], [place] [id number] [employer] [employer] [facility] [employer] [facility] documented in this encounter Medications at Time [...] this encounter Consult Notes * Pearl Low, JUNIOR DATABASE ADMINISTRATOR - 08/26/2024 10:24 PM CSTAssociated Order(s): DIAGNOSTIC EVALUATION CENTER (DEC) ASSESSMENT ORDER Diagnostic Evaluation Consultation Crisis Assessment Patient Name: Kacey Hinse Age: [age] year old Legal Sex: female Gender Identity: female Pronouns: Race: White Ethnicity: Not or Language: Mauritian Patient was assessed: Virtual: GetGifted Crisis Assessment Start Date: 08/26/24 Crisis Assessment Start Time: 2137 Crisis Assessment Stop Time: 2157 Patient location: [facility] EMERGENCY DEPT ED05 Referral Data and [...] information name, relationship, phone number: Beth Gibson [phone] What happened today: Beth reported Pt came [...] Beth noted Pt has cellulitisissues. Risk Assessment Lehigh Suicide Severity Rating Scale Full Clinical Version: Suicidal Ideation Q1 Wish to be (Lifetime): No Q2 Non-Specific Active Suicidal Thoughts (Lifetime): No Q6 Suicide Behavior (Lifetime): no Suicidal Behavior (Lifetime) Actual Attempt (Lifetime): No Interrupted Attempts (Lifetime): No Aborted or Self-Interrupted Attempt (Lifetime): No Preparatory Acts or Behavior (Lifetime): No Lehigh Suicide Severity Rating Scale Recent: Suicidal Ideation [...] that pt discharge with OP MH support. Dispatcher Tugboat connected patient to a psychiatry appointment tomorrow. [...] DEC - Triage & Transition Services Callback: [phone] [facility] [employer] documented in this encounter ED Notes * Sarah Sotomayor RN - 08/26/2024 9:39 PM CST V-DEC at bedside. [facility] * Juarez Gonzalez MD - 08/26/2024 7:41 [...] use.she also mentions recently losing her long [employer] job of 13 years. 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 Review of External Notes Reviewed office visit from earlier today as well as telehealth behavioral visit from August 24. 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 1939 I obtained the history and examined the patient as above. 2207 I talked to [facility] regarding the patient. Additional Documentation Medical Decision Making / Diagnosis [facility] Diagnoses: [facility] Kacey Hines is a 34 year old [...] statements to me. Juarez Gonzalez MD 08/26/241 [employer] [facility] * Caroline Paulino RN - 08/26/2024 7:08 PM CST Bed: ED05 Expected date: Expected time: Means of arrival: Comments: MH only [employer] * Sarah Aguirre RN - 08/26/2024 7:06 PM CST Bed: ED04 Expected date: Expected time: Means of arrival: Comments: MH only [employer] * Sarah Aguirre RN - 08/26/2024 7:04 PM CST Pt arrives with increased anxiety, pt was started on lexapro 3 weeks ago and hydroxyzine at needed. [employer] [employer] * Sarah Russell RN - 08/26/2024 9:00 AM CST Pt feels anxiety has improved since taking oral medication [employer] documented in this encounter Plan of Treatment [...] For 1 dose $Given 08/26/2024 7:35 PM [facility] 1 mg documented in this encounter Active and Recently Administered Medications Times are shown in [facility]. Scheduled Medication Order 08/24/2024 2024 08/26/2024 LORazepam (ATIVAN) tablet 1 mg (COMPLETED) 1 mg, Oral, ONCE, On Sat08/26/24 at 1935, For 1 dose 1934 ($Given - Provi liudmila: Sarah Russell RN) documented in this encounter Care Teams Almond Blancher Hand Relationship Specialty Start Date End Date Clinic, [facility] [address] [place] [address] PCP - General 08/23/24 documented as of this encounter
--- OUTSIDE RECORDS SUMMARY | 2024-09-16 00:41 | XMS_ITS | Encounter Summary ---
Author Organization [facility] Address [address] [place] [address] Care Team Providers Care Customer Care Professional Name Role Phone [facility] Primary Care Pr ovider Encounter Details Date Type Department Care Team (Late st Contact Info) Description 08/31/[address] 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 H DUMPER documented in this encounter Plan of Treatment Not on file documented as of this encounter Visit Diagnoses Not on filedocumented in this encounter Care Teams Customer Care Professional Relationship Specialty Start Date End Date Clinic, [facility] [address] [place] [address] PCP - General 08/23/24 documented as of this encounter
--- OUTSIDE RECORDS SUMMARY | 2024-09-16 00:41 | XMS_ITS | Encounter Summary ---
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 [facility] [place] [address] PCP - General 08/23/24 documented as of this encounter
--- OUTSIDE RECORDS SUMMARY | 2024-09-16 00:41 | XMS_ITS | Clinical Summary ---
Author Organization [facility] Address [place], [place] [address] Care Team Providers Care Counting Machine Operator Name Role [facility] + Allergies No [...] mouth 3 times daily if needed. Active Lzxvz-9-PCU-EPA-Fish Oil (Fish OiL) 1,000 mg (120 mg-180 [...] Visit [facility] [address] [facility] [address] [place], [place] [id number] Shyann Umana NP Derm Problem 07/26/2024 Travel [...] st Contact Info) Description 10/22/2024 10:00 AM CONFERENCE INTERPRETER Office Visit [facility] [address] [id number] [place] [address] [place], [place] [phone] Health Maintenance Due Date Last Done Comments [...] Comments Code Status Discussion: Discussed Care Teams Counting Machine Operator Relationship Specialty Start Date [facility] [address] [place] [address] PCP - General 01/14/24
== END 2024-09-14 10:15 | disposition home or self-care (01) ==
LOC: AMB 09-16 00:36
PROVIDERS: PCP Family Medicine; Visit Provider Emergency Medicine
DX: F41.9 Anxiety disorder, unspecified (principal); R45.851 Suicidal ideations
CPT/HCPCS: A0425; A0427

== ENCOUNTER 2024-09-30 22:44 | Emergency (ER) | payer MEDICAID, SELFPAY ==
[2024-09-30 22:48] VITALS: BP 138/83; PULSE 77; RESP 16; TEMP 35.8; O2SAT 99; BMI 27.4
--- NOTE | 2024-09-30 23:28 | ED.DIZZY ---
HPI - Dizziness General Chief Complaint: Dizziness/Vertigo Stated Complaint: Migraine Time Seen by Provider: 09/30/24 22:59 History of Present Illness HPI Narrative: This 34-year-old female is reporting episodes of vertigo that occur on and off and seemed to be triggered by certain movements or positions. These symptoms been going on and off for the past few months. She has a history of migraine headaches and does take migraine medicine but currently does not have much of a headache and states that when she does take her triptan medicine it does not seem to help with her vertigo symptoms. She is in a partial day program for mental health because of anxiety symptoms. She states she is doing well in this regard. She is on Lexapro again and is also taking BuSpar. She states that the vertigo symptoms were occurring before she started BuSpar and she reports that she has been on Lexapro in the past without any adverse effects. Related Data Home Medications ?Medication ?Instructions ?Recorded ?Confirmed escitalopram oxalate 20 mg tablet 20 mg PO DAILY 02/07/24 09/07/24 (Lexapro) rizatriptan 10 mg tablet 10 mg PO DIRECTED 02/07/24 09/07/24 hydroxyzine HCl 25 mg tablet mg PO 09/07/24 Previous Rx's ?Medication ?Instructions ?Recorded meclizine 25 mg tablet 25 mg PO QID #20 tabs 09/30/24 ondansetron HCl 4 mg tablet 4 mg PO Q6H #10 tabs 09/30/24 Allergies Allergy/AdvReac Type Severity Reaction Status Date / Time Sulfa (Sulfonamide Allergy Mild Hives Verified 09/07/24 21:16 Antibiotics) Review of Systems Status of ROS: Reports: 10 or more systems reviewed and unremarkable except as noted in History and below Narrative: Constitutional: No fevers, no weight gain or loss. Eyes: No discharge. No vision changes. HENT: No congestion, no sore throat, no ear pain. Cardiovascular: No chest pain, no palpitations. Respiratory: No shortness of breath, no wheezes, no cough. Gastrointestinal: No abdominal pain, no vomiting, no diarrhea. Genitourinary: No dysuria, no hematuria. Musculoskeletal: Normal range of motion. Skin: No rashes, no pruritis. Neurological: No weakness, sensory change, speech change. Vertigo symptoms that occur with certain positions or movements but absent when at rest. Endo/Heme/Allergies: No bruising or bleeding. No polydipsia. Pysch: no suicidality, no anxiety, no insomnia. All other systems reviewed and are negative. [facility] Social History Smoking Status: Current every day smoker Do you use any of these nicotine containing products: E-Cigarettes and Vaping Products Second hand tobacco smoke exposure: No How often do you have a drink containing alcohol: never AUDIT-C Alcohol total score: 0 Non-prescribed substance use: denies use service: No Exam Narrative: Exam Narrative: Constitutional: Well-developed, well-nourished, no acute distress. HEENT: Normocephalic, atraumatic. No nystagmus. Neck: Normal range of motion. Nontender. Supple. Heart: Regular. No murmurs. Normal rate. Intact distal pulses. Lungs: Clear to auscultation. No chest discomfort. No wheezes, rhonchi, or rales. Abdomen: Normal bowel sounds. Nontender. No rebound tenderness. Genitalia: Deferred. Back: No midline tenderness. Normal range of motion. Extremities: Normal range of motion. No injury. Skin: Intact. No rash. Warm. No erythema or pallor. Neurologic: No altered sensation. No weakness. Alert and oriented. Psychiatric: No suicidality. No anxiety or depression. No insomnia. Nursing notes and vitals signs are reviewed. Const: Vital Signs, click to edit/add: Vital Signs - 24 hr 09/30/24 22:48 Temperature 96.4 F L Pulse Rate [Left P ulse Oximeter] 77 Respiratory Rate 16 Blood Pressure [Ri ght Upper Arm] 138/83 Pulse Oximetry 99 Oxygen Delivery Me thod Room Air Course Vital Signs Vital signs: Initial Vital Signs Temperature 96.4 F L 09/30/24 22:48 Temperature Source Temporal Artery Scan 09/30/24 22:48 Pulse Rate 77 09/30/24 22:48 Pulse Rhythm Regular 09/30/24 22:48 Respiratory Rate 16 09/30/24 22:48 Blood Pressure 138/83 09/30/24 22:48 Blood Pressure Mean 101 09/30/24 22:48 Blood Pressure Position Sitting 09/30/24 22:48 Pulse Oximetry 99 09/30/24 22:48 Oxygen Delivery Method Room Air 09/30/24 22:48 Vital Signs Temperature 96.4 F L 09/30/24 22:48 Pulse Rate 77 09/30/24 22:48 Respiratory Rate 16 09/30/24 22:48 Blood Pressure 138/83 09/30/24 22:48 Pulse Oximetry 99 09/30/24 22:48 Oxygen Delivery Method Room Air 09/30/24 22:48 Temperature 96.4 F L 09/30/24 22:48 Pulse Rate 77 09/30/24 22:48 Respiratory Rate 16 09/30/24 22:48 Blood Pressure 138/83 09/30/24 22:48 Pulse Oximetry 99 09/30/24 22:48 Oxygen Delivery Method Room Air 09/30/24 22:48 MDM - Dizziness MDM Narrative Medical decision making narrative: This patient is reporting vertigo symptoms as described above. Her exam currently is completely normal. I did describe various causes of vertigo including medication adverse effects, canalith, or vestibular neuritis. She is not showing any signs or symptoms that would indicate a need for imaging or lab studies at this time. The patient did receive an oral dose of meclizine and Zofran and I provided prescriptions for the same. I did describe signs and symptoms that would indicate a need for return and re-evaluation. Discharge Plan Discharge Clinical Impression: Acute vestibular neuronitis Patient Disposition: Home, Self-Care Condition: Stable Additional Instructions: Take medications as needed and indicated. Follow up with MD return if worsening. Prescriptions: New ondansetron HCl 4 mg tablet 4 mg PO Q6H Qty: 10 0RF meclizine 25 mg tablet 25 mg PO QID Qty: 20 0RF No Action hydroxyzine HCl 25 mg tablet PO escitalopram oxalate [Lexapro] 20 mg tablet 20 mg PO DAILY rizatriptan 10 mg tablet 10 mg PO DIRECTED Follow Up/Referrals: Rosa Maria Phillips MD [Primary Care Provider] - Stand Alone Forms: [employer] Info Instructions
[2024-09-30] MEDS: MECLIZINE HCL 25 MG TABLET PO (23:35)
[2024-09-30] MEDS: ONDANSETRON ODT 4 MG TAB PO (23:35)
== END 2024-09-30 23:39 | disposition home or self-care (01) ==
LOC: ED 23:34
PROVIDERS: Emergency Provider Emergency Medicine Emergency Medical Services; PCP Family Medicine
DX: H81.23 Vestibular neuronitis, bilateral (principal)
CPT/HCPCS: 99283; 99284; A9270